=== PATIENT | male | born 1965 | race Caucasian/White ===

== ENCOUNTER 2023-09-12 20:39 | Inpatient (IN) | payer OTHER, SELFPAY ==
[2023-09-12 17:53] VITALS: BMI 23.2
[2023-09-12 17:54] VITALS: BP 134/110
[2023-09-12 18:18] LABS: % Basophils 0.2 % (0-2); % Eosinophils 0.4 % (0-6); % Immature Granulocytes 0.4 % (0-0.5); % Lymphocytes 9.1 % (20.5-51.1); % Monocytes 4.6 % (1.7-9.3); % Neutrophils 85.3 % (42.2-75.2); Absolute Eosinophils 0.1 10^3/uL (0-0.7); Absolute Immature Granulocytes 0.1 10^3/uL (0-0.05); Absolute Lymphocytes 1.4 10^3/uL (1.2-3.4); Absolute Monocytes 0.7 10^3/uL (0.1-0.6); Absolute Neutrophils 12.7 10^3/uL (1.4-6.5); Hematocrit 49.8 % (39.0-52.0); Mean Corp Hgb Conc. 34.1 g/dL (33.0-37.0); Mean Corpuscular Volume 87.8 fL (80.0-94.0); Mean Platelet Volume 10.2 fL (7.4-10.4); Nucleated Red Blood Cells % 0 % (-); Platelet Count 191 10^3/uL (130-400); Red Blood Cell Count 5.67 10^6/uL (4.70-6.10); Red Cell Dist. Width 13.6 % (11.5-14.5); White Blood Cell Count 14.9 10^3/uL (4.8-10.8)
[2023-09-12 18:27] LABS: ALT (SGPT) 14 U/L (0-50); AST (SGOT) 23 U/L (17-59); Albumin 4.3 g/dl (3.5-5.0); Alkaline Phosphatase 148 U/L (38-126); Blood Urea Nitrogen 10 mg/dl (9-20); Calcium 10.3 mg/dl (8.4-10.2); Carbon Dioxide 25 mmol/L (22-30); Chloride 98 mmol/L (98-107); Glucose 172 mg/dl (70-99); Potassium 4.7 mmol/L (3.5-5.1); Sodium 135 mmol/L (135-145); Total Bilirubin 0.8 mg/dl (0.2-1.3); Total Protein 6.9 g/dl (6.3-8.2); eGFR > 60.00
[2023-09-12 18:32] LABS: COVID-19 Antigen Negative (Negative)
[2023-09-12 18:33] LABS: Lactic Acid 4.2 mmol/L (0.7-2.0)
[2023-09-12] MEDS: ZOFRAN 4 MG IV (18:58)
[2023-09-12] MEDS: DILAUDID 0.5 MG IV (18:58)
[2023-09-12] MEDS: NSS 1000 IV (19:05)
[2023-09-12 19:06] VITALS: BP 153/78
[2023-09-12] MEDS: DILAUDID 1 MG IV (19:38)
--- NOTE | 2023-09-12 19:48 | ED.GENMED ---
History of Present Illness
General
Chief Complaint: Abdominal Symptoms
Source: patient
Time Seen by Provider: 09/12/23 18:54
Travel History
Have you had any contact with someone who has COVID-19?: No
Do you have any symptoms of coronavirus? Fever > 100 degrees, chills, cough, shortness of breath, sore throat, loss of taste or smell, muscle aches, or headache?: No
History of Present Illness
History of Present Illness:
58-year-old male presents to the emergency room complaining of severe abdominal pain. Patient was feeling a bit unwell earlier today. This afternoon he began having severe pain in the middle of his abdomen. Positive chills. Pain has been
increasing in severity. No vomiting. 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 Patient was initially on Plavix and Xarelto. At some point. The patient transition to just aspirin due to easy
bruising and bleeding. Patient does continue to smoke cigarellos. Patient is also not taking cholesterol medications.
Past History
Past History
ED Past Medical History: LA
ED Past Surgical History: Cardiac (Catheterization)
Social History
Tobacco: Smoker
Alcohol: None
Personal:
Employment: Employed
Phy Exam
Physical Exam
Physical Exam:
General: Awake, Alert, Oriented X3. Patient appears in significant discomfort
Vitals: unremarkable
Head: Atraumatic
Eyes: Pupils equal, EOMI
Throat: Airway intact, no exudates
Neck: Trachea midline
Lungs: Clear and equal b/l
Heart: Regular rate, no murmurs
Abd: Soft, no reproducible abdominal tenderness r, No pulsatile mass
Neuro: Nonfocal
Skin: Warm, dry, no rash
Extremities: pulses equal b/l, no edema
Course
Orders/Labs/Results
Orders:
Orders
09/12/23 18:05
COVID-19 Antigen Urgent
Source: Nasal Swab
Complete Blood Count/With Diff Urgent
Comprehensive Metabolic Panel Urgent
Lactic Acid Urgent
Blood Culture Urgent
LEODAN Source: Blood/Venous
Specimen Description:
Influenza A+B Rapid Molecular Urgent
LEODAN Source: Nasal Swab
Specimen Description:
09/12/23 18:55
HYDROmorphone [Dilaudid] 0.5 mg .ROUTE .STK-MED ONE
Ondansetron Injectable [Zofran] 4 mg .ROUTE .STK-MED ONE
09/12/23 18:58
HYDROmorphone [Dilaudid] 0.5 mg IV NOW STA
Ondansetron Injectable [Zofran] 4 mg IV NOW STA
09/12/23 19:00
CT Angio Abd/Pelvis w/wo IV [CT Abd/pelvis Angio W/wo Iv] Stat
Comment:
Reason For Exam: severe abdominal pain hx of mesenteric bypass
09/12/23 19:05
0.9% Sodium Chloride 1000 ml [Nss] 1,000 ml IV BOLUS
09/12/23 19:32
HYDROmorphone [Dilaudid] 1 mg IV NOW STA
Abnormal Lab Results
09/12/23
18:05
WBC 14.9 H 10^3/uL
(4.8-10.8)
Abs Immat Gran (auto) 0.1 H 10^3/uL
(0-0.05)
Absolute Neuts (auto) 12.7 H 10^3/uL
(1.4-6.5)
Absolute Monos (auto) 0.7 H 10^3/uL
(0.1-0.6)
Neutrophils % 85.3 H %
(42.2-75.2)
Lymphocytes % 9.1 L %
(20.5-51.1)
Glucose 172 H mg/dl
(70-99)
Lactic Acid 4.2 H* mmol/L
(0.7-2.0)
Calcium 10.3 H mg/dl
(8.4-10.2)
Alkaline Phosphatase 148 H U/L
(38-126)
09/12/23 18:05
09/12/23 18:05
Vital Signs
Initial and Last Documented VS:
Initial Vital Signs
Temp Pulse Resp BP Pulse Ox
99.9 F 54 20 134/110 98
09/12/23 17:54 09/12/23 17:54 09/12/23 17:54 09/12/23 17:54 09/12/23 17:54
Last Documented Vital Signs
Temp Pulse Resp BP Pulse Ox
99.9 F 54 20 134/110 98
09/12/23 17:54 09/12/23 17:54 09/12/23 17:54 09/12/23 17:54 09/12/23 17:54
MDM/Problems Addressed
Differential Diagnosis Includes:
Gastritis, peptic ulcer disease, diverticulitis, mesenteric ischemia
MDM/Problems Addressed:
Given patient's history of celiac artery and SMA artery bypass my #1 concern is occlusion of the bypass graft with resultant bowel ischemia. Therefore CTA of the abdomen was performed. After examining the patient I also immediately called
Vanna who is on-call for vascular surgery. I also discussed the case with Dr. Gan who is the backup vascular surgeon. As soon as the CTA images were available Dr. Gan reviewed them. She notes that there appears to be occlusion of the
graft and she has called in the OR team for emergent surgery. She notes that this is a very high risk occlusion which may not be repairable. There is a high chance of mortality.
*Radiology
Radiology exam reviewed: radiology read reviewed
*Pulse Oximetry
Patient hypoxic: no
*Critical Care Note
Total Time (30-74mins, 75-104mins- exclusive of procedures): 45 min
comment:
Critical care statement: A total of 45 minutes of critical care time was provided for this patient. This includes management of unstable vital signs, evaluation of the patient at bedside, reviewing the patient's pertinent medical records, discussion
with consultants, review of old EKGs and review of pertinent medical records. This time with separate from time utilized to perform the aforementioned documented procedures
Data Reviewed
Review of Other/Old Records Reveals: Operative Reports (Previous vascular surgery report) and Discharge Summary (Discharge summary from vascular surgery admission)
Patient Management
Discussion with other providers: Hospitalist and Crisis Clinician (Dr. Parbhakar, Dr. Gan)
ED Attending Note
-
Portions of this chart may have been created with voice recognition software.� Occasional wrong word or��sound alike� substitutions may have occurred due to the inherent limitations of voice recognition software.
Discharge Plan
Departure
Patient Disposition: Admit
Date of Disposition: 09/12/23
Time of Disposition: 20:03
Presentation/result/management discussed w/ accepting MD/DO: Vascular surgery, Dr. Fox
Condition: Critical
Discharge Problem:
Acute mesenteric ischemia, Occlusion of vascular bypass graft
Prescriptions:
No Action
ibuprofen 200 mg Capsule
800 mg PO TID PRN (Reason: mild pain/fever)
aspirin 81 mg Tablet,Delayed Release (/Ec)
81 mg PO DAILY
methylprednisolone 4 mg tablets,dose pack
4 mg PO UD
melatonin 5 MG tablet
20 mg PO HS
Referrals:
Mendoza Uribe DO [Family Provider] -
Interventions
Interventions:
*Risk Screen - Suicide Last Done: 09/12/23 17:54
*General Assessment Last Done: 09/12/23 17:54
[2023-09-12 20:00] VITALS: BP 191/103
[2023-09-12] MEDS: ROCEPHIN 1000 MG IV (20:04)
[2023-09-12 20:10] VITALS: BP 166/91
[2023-09-12 20:11] LABS: APTT 23.2 Sec (23.4-35.0); INR 1.17; PT 14.8 Sec (11.4-14.6)
--- NOTE | 2023-09-12 20:18 | HPS.HSE ---
Addendum entered and electronically signed by Speedy Jackman MD 09/12/23 20:38:
I saw and examined the patient.
The STATION CAPTAIN or PA's note was reviewed and I agree with the note.
Comment:
HPI
58M current smoker HX GA, ASCVD, S/p bypass of his celiac and SMA in May 2021 on Plavix and Xarelto pw acute onset of worsening mid abdominal pain. Reports Plavix and statin were topped by patient and initiated ASA on his own since
January and recurrenct smoker.
Reviewed VS: T 99.9 HR 55- 65s BP 130/110- 165/90
PE
Gen: Not toxic
HEENT: anicteric
Neck: supple
Lungs: CTA
Cor: S1 S2
Abdomen: soft abdomen, minimally tender in mid abdomen s/p 1 gm of Dilaudid at ER
ASBESTOS SHINGLE ROOFER: AAO3, NFND
MS: n edema
Psych: appropriate
Data
WCC 14.9
INR 1.17
Nl Cr
BG 172
LA 4.2
NEG Covid
CT Abd/pelvis Angio W/wo Iv
1. Complete occlusion of the celiac/SMA bypass graft as described.
2. Mild bilateral lower lobe infectious/inflammatory bronchiolitis change.
3. Mild T12 and L4 superior endplate compression deformities, new from 01/20/2023 and age indeterminate. Recommend correlation for any point tenderness in these regions.
ASSESSMENT & PLAN
Acute complete occlusion of the celiac/SMA bypass graft
Associated abdominal pain
Lactate acidosis
Non compliance with Plavix and Stain
Current smoker
- Heparin gtt
- Urgent Vascular consult by ER
- Urgently proceed to Vascular OR
- Empiric IV Zosyn incase bacteria translocation due to BW ischemia
- IV Dilaudid PRN
- Anti Emetics
- NPO and IVF
HLD- non compliance with Statin
- resume Stain when able to take POs
DVT Px: on Heparin gtt
Code: Full code
ICU
Original Note:
Family Physician
-
Family Physician: Mendoza Uribe
Chief Complaint
-
Abdominal Pain
History of Present Illness
Patient is a 58 y/o male with PMH of mesenteric ischemia s/p celiac/SMA bypass who presented to the ED complaining of severe abdominal pain. Patient says he felt anxious and nauseous this morning and reports elevated BP at work. Around 1 pm he
started to have progressive abdominal pain which he says was 10/10. Patient had a supraceliac aorta to hepatic artery/SMA bypass with graft on 06/25/21. Patient says he quit smoking for 6-7 months following the surgery but has since resumed smoking
cigarillos daily. Work-up in the ED revealed complete occlusion of the bypass graft. Hospitalist group was asked to evaluate the patient for admission to the hospital.
Medical History
Past Medical History
Past Medical History: Reports Other
Additional Past Medical History:
Mesenteric Ischemia
Coronary Vasospasm
LLE DVT
Past Surgical History: Reports Other
Additional Past Surgical History:
Supraceliac aorta to hepatic artery/superior mesenteric artery bypass�
Left Knee Arthroscopy
Lumbar Discectomy
Hemorrhoidectomy
Social History
Tobacco: Smoker (10 cigarillos per day )
Alcohol: None
Family History
Family History: Not pertinent
Allergies / Home Medications
Allergies reflects when Allergies were last updated in [facility].
Home Medications with original date entered in [facility]
Allergy/Medication List:
Allergies
Allergy/AdvReac Type Severity Reaction Status Date / Time
No Known Allergies Allergy Verified 09/12/23 17:54
Home Medications
aspirin 81 mg tablet,delayed release 81 mg PO DAILY 09/12/23
ibuprofen 200 mg capsule 800 mg PO TID PRN mild pain/fever 09/12/23
melatonin 5 mg tablet 20 mg PO HS 09/12/23
methylprednisolone 4 mg tablets in a dose pack 4 mg PO UD 09/12/23
Review of Systems
-
A 12 point ROS was completed and negative except as noted: Yes
Constitutional: Denies Fever or Chills
Respiratory: Denies Cough or Trouble Breathing
Cardiac: Denies Chest Pain or Palpitations
Abdomen/GI: Reports See HPI
Physical Exam
Vital Signs
Vital Signs
Temp Pulse Resp BP Pulse Ox
99.9 F 68 20 166/91 96
09/12/23 17:54 09/12/23 20:10 09/12/23 17:54 09/12/23 20:10 09/12/23 20:10
Physical Exam
General: Well Developed and Well Nourished
HEENT: Moist mucous membranes
Respiratory: Other (Coarse breath sounds throughout)
Cardiac: S1/S2 and Regular Rhythm
GI: Soft and Tender (Mild throughout without rebound or guarding)
Rectal: Deferred by Provider
Musculoskeletal: No Clubbing, No Cyanosis and No Edema
Skin: Warm and Dry
Neuro: Awake, Alert, Oriented and No Motor Deficits
Laboratory Results
-
09/12/23 18:05
09/12/23 18:05
Laboratory Results
PT 14.8 Sec (11.4-14.6) H 09/12/23 19:54
INR 1.17 09/12/23 19:54
APTT 23.2 Sec (23.4-35.0) L 09/12/23 19:54
Lactic Acid 4.2 mmol/L (0.7-2.0) H* 09/12/23 18:05
Total Bilirubin 0.8 mg/dl (0.2-1.3) 09/12/23 18:05
AST 23 U/L (17-59) 09/12/23 18:05
ALT 14 U/L (0-50) 09/12/23 18:05
Alkaline Phosphatase 148 U/L (38-126) H 09/12/23 18:05
Data Reviewed
-
CT Scan: Report Reviewed by me
Lab Data: Labs Reviewed by me
Old Records: Reviewed
Impression/Plan
-
Acute Mesenteric Ischemia secondary to Occluded Celiac/SMA Bypass Graft
-Patient to go to OR this evening, then ICU post-op
-Continue heparin drip
-Trend Lactic Acid
-Start empiric Zosyn
-Check HgbA1c and Lipid Panel
Tobacco Use Disorder
-Encourage smoking cessation
DVT proph: Heparin Drip
Code Status: Full Code
[2023-09-13] VITALS (43 sets, daily range): BP systolic 110–161; BP diastolic 79–110; BMI 21.8
--- NOTE | 2023-09-13 00:25 | W.IMMPOSTOP ---
Surgical Immed Post Op Note
-
Primary Surgeon: kendall
Assisting Surgeon: xochilt
Pre-op Diagnosis: ischemic bowel
Post-op Diagnosis: same
Procedure Performed: sma thrombectomy, arteriogram, patch angioplasty
Anesthesia Type: get
Specimen / Cultures: thrombus
Estimated Blood Loss: 500
Complications: none
Operative Findings: palpable sma pulse
--- NOTE | 2023-09-13 00:31 | W.IMMPOSTOP ---
Surgical Immed Post Op Note
-
Primary Surgeon: Phu Prabhakar MD
Assisting Surgeon: Linda Gan MD
Pre-op Diagnosis: Acute mesenteric ischemia secondary to mesenteric bypass thrombosis
Post-op Diagnosis: same
Procedure Performed: Exploratory laparotomy, lysis of adhesions, aortomesenteric bypass nick thrombectomy, mesenteric arteriogram, patch angioplasty of aortomesenteric bypass
Anesthesia Type: GETA
Estimated Blood Loss: 1L
Complications: none
Operative Findings: viable bowel. thrombosed bypass to SMA
[2023-09-13] MEDS: NSS 1000 IV ×2 (01:23→08:30)
[2023-09-13] MEDS: HEPARIN 25000 UNITS/250 ML IV (01:49)
[2023-09-13] MEDS: ZOSYN 50 IV ×4 (02:08→18:42)
--- NOTE | 2023-09-13 02:30 | PTCARENOTE ---
Received pt. from PACU s/p SMA thrombectomy, arteriogram, and angioplasty of graft. Heparin gtt infusing. Pt. drowsy but arousable. Oriented. Can move extremities. C/o pain at surgical site. PRN pain medication given, see MAR. Heart rhythm is sinus.
BP normotensive. Currently on 4L nasal cannula. Lungs sound diminished. Pt. is NPO. NG tube to continuous suction per order. Chavez catheter in place, draining without issue. Skin as documented. Discussed plan of care with patient. Vital signs stable
at this time.
[2023-09-13 02:51] LABS: Lactic Acid 4.6 mmol/L (0.7-2.0)
[2023-09-13] MEDS: DILAUDID 1 MG IV (02:55)
[2023-09-13 03:40] LABS: Lactic Acid 3.9 mmol/L (0.7-2.0)
[2023-09-13 03:45] LABS: Hematocrit 50.6 % (39.0-52.0); Hemoglobin 17.3 g/dL (13.0-18.0); Mean Corp Hgb Conc. 34.2 g/dL (33.0-37.0); Mean Corpuscular Hgb 30.5 pg (27.0-31.0); Mean Corpuscular Volume 89.1 fL (80.0-94.0); Mean Platelet Volume 10.4 fL (7.4-10.4); Platelet Count 140 10^3/uL (130-400); Red Blood Cell Count 5.68 10^6/uL (4.70-6.10); Red Cell Dist. Width 13.8 % (11.5-14.5)
[2023-09-13 03:49] LABS: INR 1.49; PT 17.8 Sec (11.4-14.6)
[2023-09-13 03:58] LABS: APTT 180.3 Sec (23.4-35.0)
[2023-09-13 04:14] LABS: ALT (SGPT) 33 U/L (0-50); AST (SGOT) 72 U/L (17-59); Albumin 3.1 g/dl (3.5-5.0); Alkaline Phosphatase 109 U/L (38-126); Blood Urea Nitrogen 9 mg/dl (9-20); Calcium 7.5 mg/dl (8.4-10.2); Carbon Dioxide 16 mmol/L (22-30); Chloride 109 mmol/L (98-107); Direct Bilirubin 0.4 mg/dl (0.0-0.4); Estimated Creatinine Clearance 99 ml/min; Glucose 231 mg/dl (70-99); HDL Cholesterol 43 mg/dl; LDL Cholesterol, Calculated 96 mg/dl; Magnesium 1.8 mg/dl (1.6-2.3); Phosphorus 5.4 mg/dl (2.5-4.5); Potassium 4.7 mmol/L (3.5-5.1); Sodium 132 mmol/L (135-145); Total Bilirubin 1.8 mg/dl (0.2-1.3); Total Cholesterol 152 mg/dl (50-199); Total Protein 5.4 g/dl (6.3-8.2); Triglyceride 67 mg/dl (10-149); Very Low Density Lipoprotein 13 mg/dl (0-30); eGFR > 60.00
[2023-09-13] MEDS: MORPHINE SULFATE 2 MG IV ×2 (04:40→07:21)
[2023-09-13] MEDS: FLUSH (NSS) 1 FLUSH IV ×2 (07:22→18:43)
--- NOTE | 2023-09-13 08:12 | W.PN.VS ---
Addendum entered and electronically signed by Phu Prabhakar MD 09/13/23 08:40:
patient with moderate abdominal pain this am
labs reviewed
dressing intact
lactate pending
increase fluids
follow labs and exam
if labs worsen, will need to scan as unclear what would be source
follow exam closely
continue hep gtt
change to INTERIOR DESIGN PROFESSIONAL for pain
Original Note:
Today's Communication / Plan
-
Seen and assessed with Dr Prabhakar
Assessment/Plan
-
POD 0.5 Exploratory laparotomy, lysis of adhesions, aortomesenteric bypass nick thrombectomy, mesenteric arteriogram, patch angioplasty of aortomesenteric bypass
Plan:
-KEEP heparin at 500/hr
-Cont Zosyn
-Replete Ca
-INTERIOR DESIGN PROFESSIONAL
-NS bolus 1000, monitor UO
-Repeat labs this am
Subjective Data
-
Date of Service: September 13, 2023
Pt seen at bedside this am with Dr Prabhakar. Pt admits to abd pain. Surgical site stable, dry.
Objective Data
-
Vital Signs
Temp Pulse Resp BP Pulse Ox
98.1 F 112 18 130/96 98
09/13/23 07:59 09/13/23 07:00 09/13/23 07:00 09/13/23 07:00 09/13/23 07:00
Intake and Output
09/12/23 09/13/23 09/14/23
06:59 06:59 06:59
Intake Total 1175 / 1175
Output Total 905 / 905
Balance 270 / 270
Intake:
IV fluids (Total) 1175 / 1175
Heparin 25 / 25
Normosol 100 / 100
Nss 1,000 ml @ 150 mls/hr IV . 750 / 750
Q6H40M KATERINE Rx#:[id number]
nss 300 / 300
Amount instilled into GI Tube ( 0 / 0
Total)
Blanco Sump 0 / 0
Output:
Gastrointestinal tube output ( 0 / 0
Total)
Blanco Sump 0 / 0
Urine, Chavez 905 / 905
Lab Results
09/13/23 03:17
09/13/23 03:17
Calcium 7.5 mg/dl (8.4-10.2) L D 09/13/23 03:17
Phosphorus 5.4 mg/dl (2.5-4.5) H 09/13/23 03:17
Magnesium 1.8 mg/dl (1.6-2.3) 09/13/23 03:17
Total Bilirubin 1.8 mg/dl (0.2-1.3) H D 09/13/23 03:17
Direct Bilirubin 0.4 mg/dl (0.0-0.4) 09/13/23 03:17
AST 72 U/L (17-59) H 09/13/23 03:17
ALT 33 U/L (0-50) 09/13/23 03:17
Alkaline Phosphatase 109 U/L (38-126) 09/13/23 03:17
Total Protein 5.4 g/dl (6.3-8.2) L D 09/13/23 03:17
Albumin 3.1 g/dl (3.5-5.0) L 09/13/23 03:17
Physical Exam
-
AAOx3
No tachypnea on 2L nc
Tachycadic in the 110's
Abd soft, tender, incisional site with aquacel dressing clean
NGT with 0 output
UO 30cc/hr
BL feet warm/pink
--- NOTE | 2023-09-13 08:30 | PTCARENOTE ---
NSS 1l bolus given per vasc surgery.
--- NOTE | 2023-09-13 08:37 | CON.VAS ---
Consultation
Consultation Request
Performing Provider: Vanna
Reason for Consultation: Abd pain
Medical History
-
Chief Complaint: Abdominal pain
History of Present Illness:
4- yo male with PMH of mesenteric ischemia s/p celiac/SMA bypass who presented to the ED complaining of severe abdominal pain. Patient says he felt anxious and nauseous this morning and reports elevated BP at work. Around 1 pm he started to have
progressive abdominal pain which he says was 10/10. Patient had a supraceliac aorta to hepatic artery/SMA bypass with graft on 06/25/21. Patient says he quit smoking for 6-7 months following the surgery but has since resumed smoking daily. Work-up
in the ED revealed complete occlusion of the bypass graft.
Vascular consult for this issue. Pt seen in the ER by Dr Prabhakar.
Past Medical History
Past Medical History: Other (Mesenteric Ischemia, Coronary Vasospasm, LLE DVT)
Past Surgical History: Other (Supraceliac aorta to hepatic artery/superior mesenteric artery bypass�, Left Knee Arthroscopy, Lumbar Discectomy, Hemorrhoidectomy)
Social History
Tobacco: Smoker
Alcohol: None
Family History
Family History: Reviewed & Not Pertinent
Allergies / Home Medications
Allergy/AdvReac Type Severity Reaction Status Date / Time
No Known Allergies Allergy Verified 09/12/23 17:54
Medication Instructions Recorded Confirmed Type
aspirin 81 mg tablet,delayed 81 mg PO DAILY Blood Clot 09/12/23 09/12/23 History
release Prevention/Tx
ibuprofen 200 mg capsule 800 mg PO TID PRN mild pain/fever 09/12/23 09/12/23 History
melatonin 5 mg tablet 20 mg PO HS Sleep 09/12/23 09/12/23 History
methylprednisolone 4 mg tablets in 4 mg PO UD Anti-Inflammatory 09/12/23 09/12/23 History
a dose pack
Review of Systems
-
History Source: Patient
All other systems: Negative unless noted
Constitutional: Reports No Symptoms
EENT: Reports No Symptoms
Respiratory: Reports No Symptoms
Cardiac: Reports No Symptoms
Vascular: Denies Leg Pain / Claudication
Abdomen/GI: Reports Abdominal Pain, Nausea and Pain
: Reports No Symptoms
Musculoskeletal: Reports No Symptoms
Skin: Reports No Symptoms
Neurological: Reports No Symptoms
Endocrine: Reports No Symptoms
Physical Exam
Vital Signs
Temp Pulse Resp BP Pulse Ox
98.1 F 112 18 130/96 98
09/13/23 07:59 09/13/23 07:00 09/13/23 07:00 09/13/23 07:00 09/13/23 07:00
Lab Results
09/13/23 03:17
09/13/23 03:17
Physical Exam
General: Pain
HEENT: Normocephalic and Atraumatic
Respiratory: Non Labored Respirations
Cardiac: Negative JVD
GI: Tender
Musculoskeletal: No Clubbing, No Cyanosis and No Edema
Skin: Warm
Neuro: Awake, Alert and Oriented
Psych: Calm
Assessment / Plan
-
Emergently to OR for CTA evidence of complete occlusion of the celiac/SMA bypass graft
--- NOTE | 2023-09-13 09:00 | PTCARENOTE ---
Rec'd pt at 0715 awake resting in bed c/o abd incisional pain. Medicated at 0725 with Morphine 2 mg IV for 9/10 abd pain. Rec'd pt alert and oriented. States other than abd pain his biggest concern is that he has to move his bowels. Has put himself
on and off the bedpan several times. Speech is clear. SKin is pale pink wm and dry. Respirs are unlabored on 2l nc with sats of 96%. BS are decreased at the bases. Monitor ST in the 115 range. + pulses. DP pulse are weak to palp but easily audible
with the doppler. PT pulses with the doppler. No edema. VS as documented. Abd is tender to palp with hypoactive BS. Pacheco NG in R nare to cont suction at 80 mm/hg- small amt of brownish drainage in the tubing. Midline abd incision with aquacell
dressing that is intact- few spots of drainage. No stool. Thermistor garcía intact for jovani urine. IV NSS infusing at 150 ml/hr via LAC IV Site. IV Heparin changed over to R wrist/forearm IV site. Both wnl. Vascular surgery in to see pt and updated.
Pt repositioned. Plan of care reviewed with pt. Call paco in reach.
[2023-09-13] MEDS: DILAUDID PCA 30 IV (09:16)
--- NOTE | 2023-09-13 09:30 | PTCARENOTE ---
NSS bolus completed and IV fluids changed to LR at 150 ml/hr. AUTOMATED ACCESS SYSTEMS TECHNICIAN Dilaudid hung via LAC IV Site along with LR. Dilaudid 0.2 mg dose, 10 min lockout, max 1.2 mg hr. Pt instructed on how to use the AUTOMATED ACCESS SYSTEMS TECHNICIAN and is using the controller correctly. No other
change.
[2023-09-13 09:31] LABS: Glycohemoglobin (HgbA1c) 5.8 % (4.0-5.6)
--- NOTE | 2023-09-13 09:39 | CON.INTV ---
Consultation
Consultation Request
Date/Time Consultation Requested: 09/13/2023
Date/Time Consultation Performed: 09/13/2023
Requesting Provider: Dr. Prabhakar
Performing Provider: Dr. Les Plata
Reason for Consultation: Bowel ischemia-postoperative ICU care
Medical History
-
History of Present Illness:
58-year-old man with past medical history for peripheral vascular disease, smoker, COPD, prior coronary artery disease prior history of mesenteric bypass in 2020, came complaining of subacute abdominal pain. Patient stopped Plavix and a statin on
his own only was taken aspirin since January 2023. Still smoking.
CT abdomen pelvis demonstrated bowel ischemia with thrombosis of mesenteric bypass. Patient was taking emergently to the operating room by vascular surgery. Underwent exploratory laparotomy and underwent lysis of additions, thrombectomy of
aortomesenteric bypass with patch angioplasty.
Patient currently extubated today ICU.
Complaining of lower abdominal pain. Denies any nausea or vomiting.
Hypertensive. Slightly tachycardic.
On low rate supplemental oxygen. Denies any cough or phlegm production.
Past Medical History
Past Medical History: Other (See assessment and plan section)
Social History
Tobacco: Smoker
Alcohol: None
Personal:
Living: With Family
Family History
Family History: Reviewed & Not Pertinent
Allergies / Home Medications
Allergies
Allergy/AdvReac Type Severity Reaction Status Date / Time
No Known Allergies Allergy Verified 09/12/23 17:54
Home Medications
Medication Instructions Recorded Confirmed Last Taken Type
aspirin 81 mg tablet,delayed 81 mg PO DAILY Blood Clot 09/12/23 09/12/23 Unknown History
release Prevention/Tx
ibuprofen 200 mg capsule 800 mg PO TID PRN mild pain/fever 09/12/23 09/12/23 Unknown History
melatonin 5 mg tablet 20 mg PO HS Sleep 09/12/23 09/12/23 Unknown History
methylprednisolone 4 mg tablets in 4 mg PO UD Anti-Inflammatory 03/09/12/23 09/11/23 History
a dose pack 24 mg
Review of Systems
-
History Source: Patient
All other systems: Negative unless noted
Vitals / Labs / Diagnostic Testing
Vital Signs
Temp Pulse Resp BP Pulse Ox
98.1 F 112 18 130/96 98
09/13/23 07:59 09/13/23 07:00 09/13/23 07:00 09/13/23 07:00 09/13/23 07:00
Laboratory Results
09/12/23 09/13/23
19:54 03:17
PT 14.8 H 17.8 H
INR 1.17 1.49
APTT 23.2 L 180.3 H*
Microbiology
09/12/23 18:05 Nasal Swab Influenza Types A & B (ALAN) - Final
Negative for Influenza A & B, NAAT
Negative results must be combined with clinical observations
and patient history.
Nucleic Acid Amplification test (NAAT)performed on the
[employer] platform.
Diagnostic Testing:
Physical Exam
-
HEENT: Normocephalic
Cardiovascular: S1/S2
Respiratory: Clear and Non-Labored Respirations
GI: Soft, Distended, Tender, Other (Decreased bowel sounds) and Other (Surgical incision is intact.)
Neurology: Awake, Alert, Oriented and AO x 3
Skin: Warm
General: Respiratory Distress (n) and Pain (Appears uncomfortable due to abdominal discomfort)
Assessment
-
58-year-old man with past medical history noted, admitted to the emergency room with abdominal pain. Found to have bowel ischemia due to occlusion of prior aortic mesenteric bypass. Apparently patient stopped taking Plavix and statin since January
2022. Only on aspirin, emergently taken to the operating room. Transferred to the critical care unit, we were consulted for critical care management.
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
Status post:Exploratory laparotomy, lysis of adhesions, aortomesenteric bypass nick thrombectomy, mesenteric arteriogram, patch angioplasty of aortomesenteric bypass
Leukocytosis due to mesenteric ischemia
Hyperglycemia
Lactic acidosis
Conditions present prior admission:
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
graft bypass into the celiac and SMA vessels.
Tobacco abuse
PFT's 06-19-21 with moderate airflow obstruction with some reversibility postbronchodilator on spirometry.-Not on bronchodilators
Moderate COPD/emphysema-not seen by pulmonary in the outpatient office for
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
History of left gastric anemic DVT status post apixaban 03/2021 post left knee surgery
History lumbar vasectomy
Chronic back pain-recent steroid taper
Assessment and plan:
Postoperative day 0
Extubated, on minimal supplemental oxygen
Not requiring vasopressors
Still complaining of some abdominal discomfort.
Denies nausea or vomiting
Continue IV fluids for maintenance
A bolus of 500 mL saline is given now, urine appears dark but patient does have adequate urinary output.
Follow renal function and urinary output closely
-
Continues to report some abdominal discomfort.
Lactate levels trending lower
Serial abdominal exams
Low threshold to repeat CT scan of the chest if laboratory, lactate levels worsen.
-
Operative report reviewed
Vascular surgery notes reviewed
Continue heparin drip, follow PTT
Monitor for bleeding
-
Pain control with narcotics, to start Dilaudid CONCRETE SWIMMING POOL INSTALLER.
Monitor respiratory status closely in the setting of underlying moderate COPD.
Not bronchospastic on exam
Patient does not take any inhalers in the outpatient setting.
-
Antibiotics per vascular surgery-Zosyn
Monitor leukocytosis
-
Postoperative anemia, follow H&H.
Will transfuse as necessary
-
Hyperglycemia, insulin sliding scale
Currently patient is n.p.o.
May need insulin drip if hypoglycemia persists with blood sugars over 200.
-
Smoking cessation encouraged.
-
Maintain ICU monitoring.
[2023-09-13] MEDS: LACTATED RINGERS 1000 IV (10:04)
[2023-09-13] MEDS: CALCIUM GLUCONATE 100 IV (10:05)
[2023-09-13 10:06] LABS: Hematocrit 47.6 % (39.0-52.0); Hemoglobin 16.3 g/dL (13.0-18.0); Mean Corp Hgb Conc. 34.2 g/dL (33.0-37.0); Mean Corpuscular Hgb 30.5 pg (27.0-31.0); Mean Corpuscular Volume 89.1 fL (80.0-94.0); Mean Platelet Volume 10.7 fL (7.4-10.4); Platelet Count 126 10^3/uL (130-400); Red Blood Cell Count 5.34 10^6/uL (4.70-6.10); White Blood Cell Count 25.1 10^3/uL (4.8-10.8)
--- NOTE | 2023-09-13 10:10 | PTCARENOTE ---
2gm Ca++ gluconate abbi hung per md order. Pt has been a difficult stick and IV team in- aretha labs and inserted a #22 protective in the L hand. Ca++ infusing via L hand site currently
[2023-09-13 10:18] LABS: APTT 53.5 Sec (23.4-35.0)
[2023-09-13 10:19] LABS: Lactic Acid 4.8 mmol/L (0.7-2.0)
[2023-09-13 10:24] LABS: Blood Urea Nitrogen 13 mg/dl (9-20); Calcium 7.2 mg/dl (8.4-10.2); Carbon Dioxide 18 mmol/L (22-30); Chloride 110 mmol/L (98-107); Estimated Creatinine Clearance 88 ml/min; Glucose 198 mg/dl (70-99); Potassium 4.3 mmol/L (3.5-5.1); Sodium 136 mmol/L (135-145); eGFR > 60.00
--- NOTE | 2023-09-13 10:38 | PTCARENOTE ---
Pt resting. Using SCHOOL RESOURCE OFFICER as needed. Still intermittently feels like he has to move his bowels. Dr. Prabhakar updated on labs.
--- NOTE | 2023-09-13 11:45 | PTCARENOTE ---
Dr. Prabhakar updated on labs from earlier. Overall assessment is unchanged. O2 reapplied around 1050 as with sleeping his sats were dipping to 90-91%. ETCO applied earlier per DAIRY HUSBANDMAN protocol. Sats currently on 2l are 96%. VS as documented. Urine
outputs as noted. Pt was able to move his bowels on the bedpan a mod amt of choe with sl rust tinge. Repositioned. Ramya care given.
[2023-09-13 12:22] LABS: Glucose - Point of Care 136 mg/dl (70-99)
--- NOTE | 2023-09-13 13:25 | W.PN.HOSP.TC ---
Today's Communication/Plan
-
see outlined plan
Assessment / Plan
Assessment / Plan
Assessment:
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
- s/p Exploratory laparotomy, lysis of adhesions, aorto-mesenteric bypass Tona thrombectomy, mesenteric arteriogram, patch angioplasty of aorto-mesenteric bypass
- lactic acidosis continues; continues IVF
- Vascular following
- continue IV Heparin - requires intensive monitoring
- dilaudid ADVERTISING ACCOUNT REPRESENTATIVE for pain control
- if exam worsens, repeat CT on urgent basis
Leukocytosis due to mesenteric ischemia
- continue Zosyn, day 2
- follow cultures
Hyperglycemia
- SSI while NPO
Tobacco abuse- remains actively smoking
Moderate COPD/emphysema
CAD s/p prior hx of NSTEMI
Hx of DVT status post apixaban 03/2021 post left knee surgery
Chronic back pain-recent steroid taper
Hyponatremia
Hypocalcemia - replete
DVT ppx: IV Heparin
Code: Full
Total Critical Care Time 39 minutes. I was immediately available to the patient and staff. I personally examined, reviewed labs, diagnostic images/reports, interpretations, treatment plans, discussed patient care with other providers and family
or caregivers (if patient is unable to make decisions), entered orders as appropriate and documented the medical record.
Anticipated Discharge: > 48 hours
Subjective/Interval History
-
Date of Service: September 13, 2023
reports some abd pain
lactate levels fluctuating but now on higher IVF
Objective Data
-
Labs:
Laboratory Results
09/13/23 09/13/23 09/13/23
03:17 09:54 12:00
WBC 27.0 H 25.1 H
Hgb 17.3 16.3
Hct 50.6 47.6
Plt Count 140 D 126 L
PT 17.8 H
INR 1.49
APTT 180.3 H* 53.5 H Cancelled
Sodium 132 L 136
Potassium 4.7 4.3
Chloride 109 H 110 H
Carbon Dioxide 16 L 18 L
BUN 9 13
Creatinine 0.8 0.9
Glucose 231 H 198 H
Calcium 7.5 L D 7.2 L
Total Bilirubin 1.8 H D
AST 72 H
ALT 33
Alkaline Phosphatase 109
09/13/23 09/13/23 09/13/23
14:00 14:40 18:00
WBC Pending
Hgb Pending
Hct Pending
Plt Count Pending
PT
INR
APTT Cancelled
Sodium Pending Cancelled
Potassium Pending Cancelled
Chloride Pending Cancelled
Carbon Dioxide Pending Cancelled
BUN Pending Cancelled
Creatinine Pending Cancelled
Glucose Pending Cancelled
Calcium Pending Cancelled
Total Bilirubin
AST
ALT
Alkaline Phosphatase
09/13/23
20:40
WBC Pending
Hgb Pending
Hct Pending
Plt Count Pending
PT
INR
APTT
Sodium
Potassium
Chloride
Carbon Dioxide
BUN
Creatinine
Glucose
Calcium
Total Bilirubin
AST
ALT
Alkaline Phosphatase
Vital Signs:
Vital Signs
Temp Pulse Resp BP Pulse Ox
97.9 F 117 13 145/102 96
09/13/23 12:13 09/13/23 13:00 09/13/23 13:00 09/13/23 13:00 09/13/23 13:00
I&O
09/12/23 09/13/23 09/14/23
06:59 06:59 06:59
Intake Total 1175 / 1330 193 / 193
Output Total 905 / 905 265 / 265
Balance 270 / 425 1670 / 1670
Physical Exam
-
General: Well Developed and Well Nourished
HEENT: Normocephalic and Atraumatic
Respiratory: Clear to Auscultation; Negative Wheezes or Rales
Cardiac: Regular Rhythm and S1/S2
GI: Other (surgical site intact. decreased sounds)
Genito-urinary: No Costovertebral Tender
Neuro: AO x 3
Hematologic / Lymphatic: No Lymphadenopathy
Psych: Calm
Data Reviewed
-
Critical Care Time (in minutes): 39
Labs: Labs Reviewed by me
--- NOTE | 2023-09-13 13:30 | PTCARENOTE ---
Labs resent per MD order. No other changes. Encouraged to use IS and getting about 1300 mls
[2023-09-13 13:52] LABS: Hematocrit 46.4 % (39.0-52.0); Hemoglobin 15.8 g/dL (13.0-18.0); Mean Corp Hgb Conc. 34.1 g/dL (33.0-37.0); Mean Platelet Volume 11.2 fL (7.4-10.4); Platelet Count 115 10^3/uL (130-400); Red Blood Cell Count 5.27 10^6/uL (4.70-6.10); Red Cell Dist. Width 13.9 % (11.5-14.5); White Blood Cell Count 21.5 10^3/uL (4.8-10.8)
[2023-09-13 14:02] LABS: Lactic Acid 3.2 mmol/L (0.7-2.0)
[2023-09-13 14:26] LABS: Blood Urea Nitrogen 15 mg/dl (9-20); Calcium 7.8 mg/dl (8.4-10.2); Carbon Dioxide 20 mmol/L (22-30); Chloride 110 mmol/L (98-107); Estimated Creatinine Clearance 88 ml/min; Glucose 153 mg/dl (70-99); Potassium 4.5 mmol/L (3.5-5.1); Sodium 133 mmol/L (135-145); eGFR > 60.00
[2023-09-13] MEDS: NSS IV (14:33)
--- NOTE | 2023-09-13 14:40 | PTCARENOTE ---
Dr. Prabhakar updated on labs
[2023-09-13] MEDS: LACTATED RINGERS IV (16:30)
[2023-09-13] MEDS: LR 1000 IV ×2 (16:30→22:26)
--- NOTE | 2023-09-13 17:00 | PTCARENOTE ---
Remains resting- Repositionied. Overalls states his abd is sore but he is able to rest. Is using the BOAT DISPATCHER. Respirs are unlabored. VS as documented. NG draining brownish-very sl bloody tinged drainage but mostly brown. UO as documented. IV LR
infusing at 150 ml/hr. Heparin at 500 units/hr. Will continue to monitor
[2023-09-13 18:14] LABS: Glucose - Point of Care 122 mg/dl (70-99)
--- NOTE | 2023-09-13 18:20 | PTCARENOTE ---
Labs sent as ordered. No changes in assessment
[2023-09-13 18:39] LABS: Hematocrit 42.6 % (39.0-52.0); Hemoglobin 14.6 g/dL (13.0-18.0); Mean Corp Hgb Conc. 34.3 g/dL (33.0-37.0); Mean Corpuscular Hgb 30.1 pg (27.0-31.0); Mean Corpuscular Volume 87.8 fL (80.0-94.0); Mean Platelet Volume 10.9 fL (7.4-10.4); Platelet Count 108 10^3/uL (130-400); Red Blood Cell Count 4.85 10^6/uL (4.70-6.10); Red Cell Dist. Width 14.1 % (11.5-14.5); White Blood Cell Count 19.4 10^3/uL (4.8-10.8)
[2023-09-13 18:51] LABS: APTT 36.9 Sec (23.4-35.0)
[2023-09-13 19:01] LABS: Lactic Acid 2.4 mmol/L (0.7-2.0)
[2023-09-13 19:02] LABS: Blood Urea Nitrogen 18 mg/dl (9-20); Calcium 7.5 mg/dl (8.4-10.2); Carbon Dioxide 22 mmol/L (22-30); Chloride 109 mmol/L (98-107); Estimated Creatinine Clearance 79 ml/min; Glucose 131 mg/dl (70-99); Potassium 4.5 mmol/L (3.5-5.1); Sodium 133 mmol/L (135-145); eGFR > 60.00
--- NOTE | 2023-09-13 19:25 | PTCARENOTE ---
Dr. Prabhakar updated on labs
[2023-09-13] MEDS: OFIRMEV 100 IV (20:29)
--- NOTE | 2023-09-13 20:30 | PTCARENOTE ---
Received pt. at 1900. Pt. currently in bed. Drowsy, but arousable and oriented. Pt. with multiple c/o pain. Educated patient on use of VICE PRESIDENT MARKETING & DEVELOPMENT pump. IV Offirmev ordered and given. Afebrile. Heart rhythm sinus tachy. BP normotensive. Pt. currently on 2L
nasal cannula. Lungs sound diminished. Pt. NPO with ice chips. Chavez catheter in places, draining 25-30ml/hr. Skin as documented. Discussed plan of care. Vital signs stable at this time.
[2023-09-13 23:28] LABS: Lactic Acid 3.1 mmol/L (0.7-2.0)
[2023-09-13 23:55] LABS: Glucose - Point of Care 123 mg/dl (70-99)
[2023-09-14] VITALS (25 sets, daily range): BP systolic 93–153; BP diastolic 67–103; BMI 23.0
--- NOTE | 2023-09-14 00:35 | PTCARENOTE ---
Pt. assessment unchanged. Continue to encourage patient to use SOIL SCIENCE PROFESSOR pump for his pain. Vital signs stable at this time.
[2023-09-14] MEDS: ZOSYN 50 IV ×4 (02:10→18:39)
[2023-09-14] MEDS: ZOFRAN 4 MG IV (02:25)
[2023-09-14 03:14] LABS: % Basophils 0.4 % (0-2); % Eosinophils 1.7 % (0-6); % Immature Granulocytes 0.5 % (0-0.5); % Lymphocytes 6.4 % (20.5-51.1); % Monocytes 7.4 % (1.7-9.3); % Neutrophils 83.6 % (42.2-75.2); Absolute Basophils 0.1 10^3/uL (0-0.2); Absolute Eosinophils 0.4 10^3/uL (0-0.7); Absolute Immature Granulocytes 0.1 10^3/uL (0-0.05); Absolute Lymphocytes 1.3 10^3/uL (1.2-3.4); Absolute Monocytes 1.5 10^3/uL (0.1-0.6); Absolute Neutrophils 17.4 10^3/uL (1.4-6.5); Hemoglobin 13.5 g/dL (13.0-18.0); Mean Corp Hgb Conc. 32.9 g/dL (33.0-37.0); Mean Corpuscular Volume 91.1 fL (80.0-94.0); Mean Platelet Volume 11.6 fL (7.4-10.4); Nucleated Red Blood Cells % 0 % (-); Platelet Count 100 10^3/uL (130-400); Red Cell Dist. Width 14.1 % (11.5-14.5); White Blood Cell Count 20.8 10^3/uL (4.8-10.8)
[2023-09-14 03:26] LABS: APTT 55.9 Sec (23.4-35.0)
[2023-09-14 03:27] LABS: Lactic Acid 3.2 mmol/L (0.7-2.0)
[2023-09-14 03:28] LABS: ALT (SGPT) 51 U/L (0-50); AST (SGOT) 78 U/L (17-59); Albumin 2.5 g/dl (3.5-5.0); Alkaline Phosphatase 77 U/L (38-126); Blood Urea Nitrogen 25 mg/dl (9-20); Calcium 7.7 mg/dl (8.4-10.2); Carbon Dioxide 22 mmol/L (22-30); Chloride 107 mmol/L (98-107); Estimated Creatinine Clearance 61 ml/min; Glucose 112 mg/dl (70-99); Potassium 4.7 mmol/L (3.5-5.1); Sodium 136 mmol/L (135-145); Total Bilirubin 0.9 mg/dl (0.2-1.3); Total Protein 4.6 g/dl (6.3-8.2); eGFR > 60.00
--- NOTE | 2023-09-14 04:00 | PTCARENOTE ---
Pt. assessment unchanged. AM labs drawn. Vital signs stable at this time,
[2023-09-14] MEDS: LR 1000 IV (05:13)
[2023-09-14 07:35] LABS: Lactic Acid 3.8 mmol/L (0.7-2.0)
--- NOTE | 2023-09-14 09:00 | PTCARENOTE ---
Rec'd pt at 0800 awake resting in bed. States he doesn't feel well. Admits to continued abd pain and the inability to sleep more than 20 min at a time. Speech is clear. BOB. SKin is pale pink wm and dry. Respirs are shallow but non-labored on 4l nc
with sats of 95-96%- decreased to 3l nc at 0830 with sats of95%. BS are decreased at the bases. Monitor ST in the 120's. VS as documented. + pulses. Dp pulses are weak to palp but PT and DP pulses easily audible with the doppler. No edema SCD's in
place. Abd is round and soft but tender with 8/10 abd discomfort per pt- sharp/tender in nature and enough to wake him up when he dozes. + hypoactive BS. R nare NG with brownish drainage to cont suction at 80 mm/hg. Irrigated without diff. Midline
abd aquacell dressing with old drainage. Intact. Thermistor garcía in place for jovani urine. IV LR along with FIREMAN HELPER infusing via LAC IV site. Dilaudid FIREMAN HELPER 0.2 mg dose/10 minlockout/max 1.2 mg/hr. Pt using controller appropriately. Heparin gtt continues
to infuse at 500 units/hr via R forearm IV site. Dr. Prabhakar in this am. LA drawn at 0715 and resulted at 3.8. Per MD order pt taken currently for CTA of the Abdomen. Plan of care reviewed with pt.
--- NOTE | 2023-09-14 09:05 | W.PN.VS ---
Today's Communication / Plan
-
CTA abd and pelvis
iv hydration
pain control
possible return to OR
Assessment/Plan
-
POD 1 Exploratory laparotomy, lysis of adhesions, aortomesenteric bypass nick thrombectomy, mesenteric arteriogram, patch angioplasty of aortomesenteric bypass
Plan:
-KEEP heparin at 500/hr
-Cont Zosyn
-unclear as to why lactate bumped. Will check CTA to eval but may need ex lap
-COMPUTER PROGRAMMING SUPERVISOR
-would have expected more improvement at this time
Subjective Data
-
Date of Service: September 14, 2023
Patient continues to have abd pain this am
Objective Data
-
Vital Signs
Temp Pulse Resp BP Pulse Ox
98.8 F 123 16 120/86 96
09/14/23 03:04 09/14/23 06:00 09/14/23 08:00 09/14/23 06:00 09/14/23 08:00
Intake and Output
09/13/23 09/14/23 09/15/23
06:59 06:59 06:59
Intake Total 1175 / 1330 4700 / 4855 340 / 340
Output Total 905 / 905 1020 / 1065 45 / 45
Balance 270 / 425 3680 / 3790 295 / 295
Intake:
Oral fluids 0 / 0
IV fluids (Total) 1175 / 1330 4570 / 4725 310 / 310
Heparin 25 / 30 120 / 125 10 / 10
LR 4000 / 4150 300 / 300
Normosol 100 / 100
Nss 1,000 ml @ 150 mls/hr IV . 750 / 900 450 / 450
[id number] [facility] Rx#:[id number]
nss 300 / 300
IV piggybacks 100 / 100
Amount instilled into GI Tube ( 0 / 0 30 / 30 30 / 30
Total)
Stanislaus Sump 0 / 0 30 / 30 30 / 30
Output:
Gastrointestinal tube output ( 0 / 0 300 / 300
Total)
Stanislaus Sump 0 / 0 300 / 300
Urine, Chavez 905 / 905 720 / 765 45 / 45
Lab Results
09/14/23 03:04
09/14/23 03:04
Calcium 7.7 mg/dl (8.4-10.2) L 09/14/23 03:04
Phosphorus 5.4 mg/dl (2.5-4.5) H 09/13/23 03:17
Magnesium 1.8 mg/dl (1.6-2.3) 09/13/23 03:17
Total Bilirubin 0.9 mg/dl (0.2-1.3) 09/14/23 03:04
Direct Bilirubin 0.4 mg/dl (0.0-0.4) 09/13/23 03:17
AST 78 U/L (17-59) H 09/14/23 03:04
ALT 51 U/L (0-50) H 09/14/23 03:04
Alkaline Phosphatase 77 U/L (38-126) 09/14/23 03:04
Total Protein 4.6 g/dl (6.3-8.2) L 09/14/23 03:04
Albumin 2.5 g/dl (3.5-5.0) L 09/14/23 03:04
Physical Exam
-
rrr
ctab
difusely tender, mild distension, soft
2+ fem pulses
lactate elevated this am
urine output still marginal despite fluids
hgb stable
cr 1.3
--- NOTE | 2023-09-14 09:49 | W.PN.UPDATE ---
Update Note
Progress Note Update
CTA reviewed
SMA bypass is patent
loops of dilated bowel
will discuss with general surgery
Not sure there is anything else from vasc perspective at this time
pain control
fluids
--- NOTE | 2023-09-14 10:00 | PTCARENOTE ---
Returned from CT scan. Dr. Prabhakar updated. Pt c/o abd pain despite using ASSEMBLY OPERATOR. Orders obtained. Call antonio in reach.
--- NOTE | 2023-09-14 10:03 | W.PN.INTV ---
Today's Communication / Plan
Recommendations
Continue LR at the current rate
Monitor renal function
Monitor lactate level
Serial abdominal exam-based on CT bypass is patent. Maintain heparin drip-follow PTT
NG tube in place
Colorectal surgery to evaluate patient for possible bowel ischemia
Assessment
-
58-year-old man with past medical history noted, admitted to the emergency room with abdominal pain. Found to have bowel ischemia due to occlusion of prior aortic mesenteric bypass. Apparently patient stopped taking Plavix and statin since January
2022. Only on aspirin, emergently taken to the operating room. Transferred to the critical care unit, we were consulted for critical care management.
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
Status post:Exploratory laparotomy, lysis of adhesions, aortomesenteric bypass nick thrombectomy, mesenteric arteriogram, patch angioplasty of aortomesenteric bypass
Leukocytosis due to mesenteric ischemia
Hyperglycemia
Lactic acidosis
Conditions present prior admission:
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
graft bypass into the celiac and SMA vessels.
Tobacco abuse
PFT's 06-19-21 with moderate airflow obstruction with some reversibility postbronchodilator on spirometry.-Not on bronchodilators
Moderate COPD/emphysema-not seen by pulmonary in the outpatient office for
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
History of left gastric anemic DVT status post apixaban 03/2021 post left knee surgery
History lumbar vasectomy
Chronic back pain-recent steroid taper
Assessment and plan:
Postoperative day 1
Hemodynamically stable, has not required vasopressors.
Continues to report abdominal pain.
NG tube in place without increased output.
Despite significant IV fluid resuscitation, lactate level increased compared to yesterday, creatinine is trending higher.
Discussed with Dr. Prabhakar: CT abdomen obtained, appears that the bypass is patent.
There is concerns for possible bowel ischemia.
Colorectal surgery has been consulted for evaluation.
Continue IV fluids LR at 150 cc an hour.
Chavez urinary output
Trend lactic acid
-
Maintain systolic blood pressure above 65 mmHg.
Follow renal function.
Vascular surgery notes reviewed, case discussed as above.
-
Continue heparin drip, follow PTT, has been therapeutic.
Monitor for bleeding, hemoglobin has been stable.
-
Pain control with narcotics, to start Dilaudid CHANNEL BUSINESS MANAGER.
Monitor respiratory status closely in the setting of underlying moderate COPD.
Not bronchospastic on exam
Patient does not take any inhalers in the outpatient setting.
-
Antibiotics per vascular surgery-Zosyn
Monitor leukocytosis-currently afebrile.
Not requiring vasopressors.
-
Hyperglycemia, insulin sliding scale-Target [id number] on target.
Currently patient is n.p.o.
May need insulin drip if hypoglycemia persists with blood sugars over 200.
-
Smoking cessation encouraged.
-
Maintain ICU monitoring.
Subjective Dataa
Subjective Data
Date of Service:
Date of Service: September 14, 2023
Chief Complaint: Financial Services Officer Follow Up (Status post aortomesenteric bypass occlusion.)
Subjective:
Continues to report abdominal pain.
Afebrile
NG tube in place without increased output.
Denies nausea or vomiting
Review of Systems
GI: Abdominal Pain
Neuro: Headache (n) and Dizziness (n)
Genitourinary: Chavez
Objective Data
Data Reviewed
Vital Signs / I&O / Oxygen:
Vital Signs
Temp Pulse Resp BP Pulse Ox
98.8 F 116 19 153/93 94
09/14/23 03:04 09/14/23 09:36 09/14/23 09:36 09/14/23 09:36 09/14/23 09:00
Intake and Output
09/13/23 09/14/23 09/15/23
06:59 06:59 06:59
Intake Total 1175 / 1330 4700 / 4855 495 / 495
Output Total 905 / 905 1020 / 1065 85 / 85
Balance 270 / 425 3680 / 3790 410 / 410
SaO2 94
Nasal Cannula flow liters per 4
minute
Physical Exam
General: Respiratory Distress (n) and Pain (Abdominal)
HEENT: Normocephalic
Cardiovascular: S1-S2 and Regular Rhythm
Respiratory: Clear and Non-Labored Respirations
GI: Soft, Other ( incision is intact without hematoma) and Other (Decreased bowel sounds)
Neurology: Awake, Alert, Oriented and No Motor Deficits
Skin: Warm
Labs/Micro/Reports
Lab Data
09/14/23 03:04
09/14/23 03:04
Laboratory Results
09/13/23 09/13/23 09/13/23
09:54 12:00 18:00
APTT 53.5 H Cancelled Cancelled
09/13/23 09/14/23
18:21 03:04
APTT 36.9 H 55.9 H
Microbiology
09/12/23 18:05 Blood/Venous Blood Culture - Preliminary
No Growth in 24 hours- Final report to follow
09/12/23 18:05 Nasal Swab Influenza Types A & B (ALAN) - Final
Negative for Influenza A & B, NAAT
Negative results must be combined with clinical observations
and patient history.
Nucleic Acid Amplification test (NAAT)performed on the
[employer] platform.
[2023-09-14] MEDS: DILAUDID 0.5 MG IV ×3 (10:45→17:44)
--- NOTE | 2023-09-14 10:45 | PTCARENOTE ---
Dr. Ballard in to see pt. Still admits to 01/06 abd pain despite DOPE FIRER. Medicated with Dilaudid 0.5 mg IV for breakthrough pain. Labs sent as ordered. No other changes
[2023-09-14] MEDS: NSS 1000 IV ×3 (10:46→23:36)
[2023-09-14 11:11] LABS: Hemoglobin 12.1 g/dL (13.0-18.0); Mean Corp Hgb Conc. 34.6 g/dL (33.0-37.0); Mean Corpuscular Hgb 30.6 pg (27.0-31.0); Mean Corpuscular Volume 88.6 fL (80.0-94.0); Mean Platelet Volume 12.2 fL (7.4-10.4); Platelet Count 104 10^3/uL (130-400); Red Blood Cell Count 3.95 10^6/uL (4.70-6.10); Red Cell Dist. Width 14.2 % (11.5-14.5); White Blood Cell Count 23.7 10^3/uL (4.8-10.8)
[2023-09-14 11:23] LABS: APTT 41.2 Sec (23.4-35.0)
[2023-09-14 11:25] LABS: Lactic Acid 3.4 mmol/L (0.7-2.0)
[2023-09-14 11:26] LABS: Blood Urea Nitrogen 29 mg/dl (9-20); Calcium 7.6 mg/dl (8.4-10.2); Carbon Dioxide 25 mmol/L (22-30); Chloride 104 mmol/L (98-107); Estimated Creatinine Clearance 64 ml/min; Glucose 103 mg/dl (70-99); Potassium 4.5 mmol/L (3.5-5.1); Sodium 134 mmol/L (135-145); eGFR > 60.00
--- NOTE | 2023-09-14 11:46 | W.PN.HOSP.TC ---
Today's Communication/Plan
-
pain control, fluids, IV Heparin
surgical evaluation for possible bowel ischemia
Assessment / Plan
Assessment / Plan
Assessment:
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
- s/p Exploratory laparotomy, lysis of adhesions, aorto-mesenteric bypass Tona thrombectomy, mesenteric arteriogram, patch angioplasty of aorto-mesenteric bypass
- lactic acidosis persistent
- CT-A 09/13 showing patient bypass, concern for bowel ischemia
- Colorectal consulted
- Vascular following
- continue IV Heparin - requires intensive monitoring
- Dilaudid TREASURY MANAGER for pain control
- continue Zosyn day 3 for persistent leukocytosis. follow cultures
Hyperglycemia
- SSI while NPO
Tobacco abuse- remains actively smoking
Moderate COPD/emphysema
CAD s/p prior hx of NSTEMI
Hx of DVT status post apixaban 03/2021 post left knee surgery
Chronic back pain-recent steroid taper
Hyponatremia
Hypocalcemia - replete
DVT ppx: IV Heparin
Code: Full
Total Critical Care Time 42 minutes. I was immediately available to the patient and staff. I personally examined, reviewed labs, diagnostic images/reports, interpretations, treatment plans, discussed patient care with other providers and family
or caregivers (if patient is unable to make decisions), entered orders as appropriate and documented the medical record.
Anticipated Discharge: > 48 hours
Subjective/Interval History
-
Date of Service: September 14, 2023
persistent abd pain this morning, repeat lactate higher
repeat CT showing patent bypass but possible bowel ischemia
Objective Data
-
Labs:
Laboratory Results
09/14/23 09/14/23 09/14/23
03:04 11:01 16:00
WBC 20.8 H 23.7 H Pending
Hgb 13.5 12.1 L Pending
Hct 41.0 35.0 L Pending
Plt Count 100 L 104 L Pending
APTT 55.9 H 41.2 H Pending
Sodium 136 134 L Pending
Potassium 4.7 4.5 Pending
Chloride 107 104 Pending
Carbon Dioxide 22 25 Pending
BUN 25 H 29 H Pending
Creatinine 1.3 1.3 Pending
Glucose 112 H 103 H Pending
Calcium 7.7 L 7.6 L Pending
Total Bilirubin 0.9
AST 78 H
ALT 51 H
Alkaline Phosphatase 77
09/14/23
22:00
WBC Pending
Hgb Pending
Hct Pending
Plt Count Pending
APTT Pending
Sodium Pending
Potassium Pending
Chloride Pending
Carbon Dioxide Pending
BUN Pending
Creatinine Pending
Glucose Pending
Calcium Pending
Total Bilirubin
AST
ALT
Alkaline Phosphatase
Vital Signs:
Vital Signs
Temp Pulse Resp BP Pulse Ox
97.6 F 125 12 126/85 94
09/14/23 08:00 09/14/23 11:00 09/14/23 11:00 09/14/23 11:00 09/14/23 09:00
I&O
09/13/23 09/14/23 09/15/23
06:59 06:59 06:59
Intake Total 1175 / 1330 4700 / 4855 805 / 805
Output Total 905 / 905 1020 / 1065 195 / 195
Balance 270 / 425 3680 / 3790 610 / 610
Physical Exam
-
General: Respiratory Distress
HEENT: Normocephalic, Atraumatic and Other (+NGT)
Respiratory: Clear to Auscultation; Negative Wheezes or Rales
Cardiac: Regular Rhythm and S1/S2
GI: Tender and Distended
Genito-urinary: No Costovertebral Tender
Neuro: AO x 3
Psych: Calm
Data Reviewed
-
Critical Care Time (in minutes): 42
Labs: Labs Reviewed by me
[2023-09-14] MEDS: LR IV (12:45)
[2023-09-14 12:58] LABS: Glucose - Point of Care 108 mg/dl (70-99)
[2023-09-14] MEDS: FLUSH (NSS) 1 FLUSH IV ×2 (13:00→18:40)
--- NOTE | 2023-09-14 13:00 | PTCARENOTE ---
Repositioned. Remedicated with Dilaudid 0.5 mg IV for 6/10 breakthrough abd pain. VS as documented. Assessment is otherwise unchanged.
--- NOTE | 2023-09-14 13:04 | CON.GS ---
Addendum entered and electronically signed by Francisco Ballard MD 09/14/23 20:57:
I saw and examined the patient.
The CENTRAL OFFICE TROUBLE SHOOTER's note was reviewed and I agree with the note.
Comment:
Seen in am with CENTRAL OFFICE TROUBLE SHOOTER.
History, vitals, labs, imaging reviewed. Patient seen and examined.
58 yo M smoker with concern for small bowel ischemia POD2 s/p sma and aortomesenteric thrombectomy and patch angioplasty with ex lap by vascular surgery. Had rising creatinine (1.3) and lactate (3.8) this am leading to the consultation. Also
tachycardic, afebrile, and with persistent leukocytosis. On exam was tender without overt perotinitis. Imaging via CT today reviewed with Dr. Jessica and Vanna with preservation of mesenteric arterial blood supply with some possible R sided
small bowel thickening. Situation discussed at bedside with patient and also with Dr. Prabhakar. Option of exploratory laparotomy with possible partial bowel resection and possible need for second look discussed vs. continuing medical management
and following labs q 6 hours. Decided to hold on surgical option and follow along closely with understanding that surgery may be required if situation worsens. All questions answered.
Of note, later in the day, creatinine remained 1.3 and lactate decreased to 2.3--some improvement. Continuing to hold on surgical option for now.
Thanks.
Original Note:
Consultation
-
Date/Time Consultation Requested: 09/14/23 0950
Date/Time Consultation Performed: 09/14/23 1020
Requesting Provider: Vanna
Performing Provider: Aditya Ballard
Reason for Consultation: eval for ischemic bowel
Medical History
-
Chief Complaint: abdominal pain
History of Present Illness:
This is a 58 yo male with h/o CAD/OK and sma and celiac bypass in 2020 who is a current smoker who presented 2 days ago via the ED with severe abdominal pain secondary to acute mesenteric ischemia secondary to mesenteric bypass thrombosis and was
taken emergently to the OR by vascular surgery for management. He underwent sma and aortomesenteric thrombectomy and patch angioplasty with ex lap for OSKAR. He has been recovering in ICU and was able to be extubated. NGT in place with bilious
outputs. CARD CHECKER being utilized for pain management. This AM, he had noted increased abdominal pain on exam prompting repeat CT imaging and labs. Leukocytosis trending up although still lower than presentation and with lactic acid trending up as well.
He is tachycardic with a stable blood pressure off pressors. He notes, he is more comfortable than this morning. There is some guarding on exam and generalized tenderness but abdomen is soft and without significant distention. No bloody stools.
Past Medical History
Past Medical History: CAD (h/o OK) and Other (LLE DVT)
Past Surgical History: Orthopedic (Left knee arthroscopy, lumbar discectomy) and Other (Hemorrhoidectomy, SMA and Celiac bypass 05/2021)
Social History
Tobacco: Smoker
Alcohol: None
Family History
Family History: Reviewed & Not Pertinent
Allergies / Home Medications
Allergy/AdvReac Type Severity Reaction Status Date / Time
No Known Allergies Allergy Verified 09/12/23 17:54
Medication Instructions Recorded Confirmed Type
aspirin 81 mg tablet,delayed 81 mg PO DAILY Blood Clot 09/12/23 09/12/23 History
release Prevention/Tx
ibuprofen 200 mg capsule 800 mg PO TID PRN mild pain/fever 09/12/23 09/12/23 History
melatonin 5 mg tablet 20 mg PO HS Sleep 09/12/23 09/12/23 History
methylprednisolone 4 mg tablets in 4 mg PO UD Anti-Inflammatory 09/12/23 09/12/23 History
a dose pack
Review of Systems
-
History Source: Patient
All other systems: Negative unless noted
A 10 point review of systems was completed, and was negative except as per HPI.
Physical Exam
Vital Signs
Temp Pulse Resp BP Pulse Ox
97.6 F 125 12 126/85 94
09/14/23 08:00 09/14/23 11:00 09/14/23 11:00 09/14/23 11:00 09/14/23 09:00
09/13/23 09/14/23 09/15/23
06:59 06:59 06:59
Actual Weight 71 kg 74.8 kg
Body Mass Index (BMI) 23.0
Lab Results
WBC 23.7 10^3/uL (4.8-10.8) H 09/14/23 11:01
Hgb 12.1 g/dL (13.0-18.0) L 09/14/23 11:01
Hct 35.0 % (39.0-52.0) L 09/14/23 11:01
Plt Count 104 10^3/uL (130-400) L 09/14/23 11:01
Abs Immat Gran (auto) 0.1 10^3/uL (0-0.05) H 09/14/23 03:04
Neutrophils % 83.6 % (42.2-75.2) H 09/14/23 03:04
Physical Exam
General: Comfortable
HEENT: Moist Mucous Membranes
Respiratory: Non Labored Respirations
GI: Soft, Non Distended and Tender (generalized with some guarding)
Skin: Warm
Neuro: Awake, Alert and AO x 3
Psych: Calm
Data Reviewed
-
CT Scan: Image Personally Visualized and interpreted, Report Reviewed by me, Discussed with Physician (reviewed with Dr.s Ballard, Vanna Jessica), Discussed with Nurse and Discussed with Patient
Labs: Labs Reviewed by me, Discussed with Physician, Discussed with Patient and Discussed with Family
Old Records: Reviewed
Assessment / Plan
-
58 yo male with h/o current tobacco use, CAD/OK and sma and celiac bypass in 2020 2 days ago via the ED with severe abdominal pain secondary to acute mesenteric ischemia secondary to mesenteric bypass thrombosis.and was taken emergently to the OR by
vascular surgery for management. Now POD #1 sma and aortomesenteric thrombectomy and patch angioplasty with ex lap for OSKAR. Seen in evaluation today for increased abdominal pain and concern for possible bowel ischemia. Repeat CT imaging reviewed
with surgical team and radiologist with final read pending. SMA bypass appears patent with some mild new bowel wall thickening noted.
NGT in place with bilious output, ABD soft with generalized tenderness, some guarding. No melena reported. Leukocytosis trending up although still lower than presentation and with lactic acid trending up through the night with last level trending
slightly down to 3.4 (3.8). He is tachycardic with a stable blood pressure off pressors. He notes, he is more comfortable now than this morning. Utilizing CARD CHECKER.
--Hold off on emergent OR intervention for now but marisel follow labs/exams closely. If condition deteriorates will plan ex lap to evaluate bowels
--Keep NPO/NGT to LIWS
--- NOTE | 2023-09-14 15:09 | CM ---
Patient with Dx acute mesenteric ischemia secondary to mesenteric bypass thrombosis s/p sma and aortomesenteric thrombectomy and patch angioplasty with ex lap for OSKAR. NPO/NGT/IVF. O2 3L midflow. Dilaudid TAIL RIPPER, IV Zosyn, Heparin gtt. Chavez.
Abdominal dressings. Bedrest.
Spoke with patient's daughter Gonzalo, who lives in [place]; the patient resides alone in a 2nd floor apartment with 1 flight outside stairs.
He has been independent in ADLs and ambulation.
The patient was active and worked.
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
The patient has no DME or prior VN.
PCP - [facility]
Pharmacy - [facility]
The patient's closest relatives are Mirian, ex- and his son who lives in [facility].
CM continuing to follow for d/c needs.
Plan home.
--- NOTE | 2023-09-14 16:30 | PTCARENOTE ---
Dozed after earlier Dilaudid. Currently awake. States he still has abd pain about 6/10 but better than when he first came into the hospital. Respirs are unlabored. Tolerating 3l with sats of 94%. Encouraged to use IS as he is getting about 500-750
mls today and BS are decreased at the bases. VS as documented. Abd dressing unchanged. Hypoactive BS. NG draining brownish drainage. UO as documented. Labs sent as ordered. Repositioned. Taking few ice chips otherwise NPO. Pt aware of possibilty of
abd surgery depending on labs. Will continue to monitor. Pts ex in to see pt earlier.
[2023-09-14 16:35] LABS: Hematocrit 33.7 % (39.0-52.0); Hemoglobin 11.8 g/dL (13.0-18.0); Mean Corpuscular Hgb 30.9 pg (27.0-31.0); Mean Corpuscular Volume 88.2 fL (80.0-94.0); Mean Platelet Volume 12.3 fL (7.4-10.4); Platelet Count 102 10^3/uL (130-400); Red Blood Cell Count 3.82 10^6/uL (4.70-6.10); Red Cell Dist. Width 14.3 % (11.5-14.5); White Blood Cell Count 25.4 10^3/uL (4.8-10.8)
[2023-09-14 16:47] LABS: APTT 40.6 Sec (23.4-35.0)
[2023-09-14 16:48] LABS: Lactic Acid 2.3 mmol/L (0.7-2.0)
[2023-09-14 16:54] LABS: Blood Urea Nitrogen 29 mg/dl (9-20); Calcium 7.2 mg/dl (8.4-10.2); Carbon Dioxide 24 mmol/L (22-30); Chloride 108 mmol/L (98-107); Estimated Creatinine Clearance 64 ml/min; Glucose 94 mg/dl (70-99); Potassium 4.5 mmol/L (3.5-5.1); Sodium 134 mmol/L (135-145); eGFR > 60.00
--- NOTE | 2023-09-14 17:20 | PTCARENOTE ---
Dejon Prabhakar and Elio updated on labs. Will hold on surgery currently. Pt aware. No other changes
--- NOTE | 2023-09-14 17:45 | PTCARENOTE ---
Remedicated at 1745 with Dilaudid 0.5 mg IV for abd breakthrough pain. No other changes
--- NOTE | 2023-09-14 20:00 | PTCARENOTE ---
Addendum entered by Gin Schaffer RN 09/15/23 06:19:
alexandro sm amt ice chips
Original Note:
Rec'd pt resting in bed, oriented, flat affect, on CLEAT BLANKER dilaudid- able to rec 0.2mg q 10min, no basal; ST, bp stable, distal pulses via doppler, skin warm/dry, O2 3 literes nc, lungs decr, enc to use IS- reaches 500ml, no cough, hypo bowel sounds,
no bm, abd tender to palpation, abd incis w/ aqaucell dsg- old drainage noted,R nares salem to 80 cont wall suction draining brown liquid, irrigated w/ 30 ml tap h20 q4h, garcía draining jovani urine
[2023-09-14] MEDS: DILAUDID PCA 30 IV (20:52)
[2023-09-14] MEDS: HEPARIN 25000 UNITS/250 ML IV (20:54)
[2023-09-14 21:48] LABS: Hematocrit 32.2 % (39.0-52.0); Hemoglobin 11.3 g/dL (13.0-18.0); Mean Corp Hgb Conc. 35.1 g/dL (33.0-37.0); Mean Corpuscular Hgb 30.9 pg (27.0-31.0); Mean Platelet Volume 12.7 fL (7.4-10.4); Platelet Count 103 10^3/uL (130-400); Red Blood Cell Count 3.66 10^6/uL (4.70-6.10); Red Cell Dist. Width 14.3 % (11.5-14.5); White Blood Cell Count 26.2 10^3/uL (4.8-10.8)
[2023-09-14 21:53] LABS: APTT 44.8 Sec (23.4-35.0)
[2023-09-14 21:55] LABS: Lactic Acid 2.1 mmol/L (0.7-2.0)
[2023-09-14 22:47] LABS: Blood Urea Nitrogen 29 mg/dl (9-20); Calcium 6.8 mg/dl (8.4-10.2); Carbon Dioxide 23 mmol/L (22-30); Chloride 112 mmol/L (98-107); Estimated Creatinine Clearance 69 ml/min; Glucose 81 mg/dl (70-99); Potassium 4.2 mmol/L (3.5-5.1); Sodium 135 mmol/L (135-145); eGFR > 60.00
--- NOTE | 2023-09-14 23:00 | PTCARENOTE ---
Lis Alberto NP notified of Ca- 6.8; Dr argueta and Dr Ballard notified of abn labs
[2023-09-14] MEDS: CALCIUM GLUCONATE 130 MG IV (23:35)
[2023-09-14 23:45] LABS: Glucose - Point of Care 81 mg/dl (70-99)
[2023-09-15] VITALS (28 sets, daily range): BP systolic 108–135; BP diastolic 68–89; PULSE 108; O2SAT 95; BMI 23.3
--- NOTE | 2023-09-15 | PTCARENOTE ---
sys reviewed, 3 gm tasia gluconate hung over 1 hr per order; sys reviewed, lungs unch, CHG bath done, linens changed
[2023-09-15] MEDS: ZOSYN 50 IV ×5 (00:42→23:34)
[2023-09-15 03:57] LABS: Hematocrit 30.9 % (39.0-52.0); Hemoglobin 10.5 g/dL (13.0-18.0); Mean Corpuscular Hgb 30.7 pg (27.0-31.0); Mean Corpuscular Volume 90.4 fL (80.0-94.0); Mean Platelet Volume 12.6 fL (7.4-10.4); Platelet Count 131 10^3/uL (130-400); Red Blood Cell Count 3.42 10^6/uL (4.70-6.10); Red Cell Dist. Width 14.6 % (11.5-14.5); White Blood Cell Count 25.9 10^3/uL (4.8-10.8)
[2023-09-15 04:10] LABS: Lactic Acid 1.7 mmol/L (0.7-2.0)
--- NOTE | 2023-09-15 04:12 | PTCARENOTE ---
sys reviewed, changes noted
[2023-09-15 04:20] LABS: APTT 44.9 Sec (23.4-35.0)
[2023-09-15 04:31] LABS: Albumin 1.9 g/dl (3.5-5.0); Alkaline Phosphatase 73 U/L (38-126); Blood Urea Nitrogen 28 mg/dl (9-20); Calcium 7.5 mg/dl (8.4-10.2); Carbon Dioxide 25 mmol/L (22-30); Chloride 111 mmol/L (98-107); Estimated Creatinine Clearance 76 ml/min; Glucose 66 mg/dl (70-99); Potassium 4.1 mmol/L (3.5-5.1); Sodium 136 mmol/L (135-145); Total Protein 3.7 g/dl (6.3-8.2); eGFR > 60.00
[2023-09-15] MEDS: D5/0.45%NACL 1000 IV ×3 (05:00→23:33)
--- NOTE | 2023-09-15 05:05 | PTCARENOTE ---
Lis Alberto NP aware of glucose 66 on labs- IVF changed to d5 1/2 at 150/hr per order
[2023-09-15 05:11] LABS: ALT (SGPT) 843 U/L (0-50); AST (SGOT) 711 U/L (17-59)
--- NOTE | 2023-09-15 05:28 | PTCARENOTE ---
Lis Alberto NP aware of ALT & AST result
[2023-09-15] MEDS: CALCIUM GLUCONATE 100 IV (05:37)
--- NOTE | 2023-09-15 05:37 | PTCARENOTE ---
1 gm tasia gluconate hung over 1hr per order
[2023-09-15 06:22] LABS: Glucose - Point of Care 107 mg/dl (70-99)
--- NOTE | 2023-09-15 07:37 | W.PN.VS ---
Addendum entered and electronically signed by Skyler Lundberg MD 09/15/23 12:25:
Seen and examined earlier this a.m. with KATHY Ortiz. Agree with findings as noted below. Patient without new complaints. Notes abdominal pain slowly slightly improving. No nausea/vomiting. NG tube in place. Outputs including urine output as
noted, reviewed and charting. On exam he is in no acute distress. Breathing is unlabored. NG tube bilious. Abdomen is soft. Appropriate incisional tenderness. Dressing is clean dry and intact. Feet are warm. Chavez with clear yellow urine.
Labs reviewed. AST/ALT slightly elevated today. Lactate normalized CT scan from yesterday reviewed.
Plan/as discussed and noted below. Increase heparin drip to therapeutic. Continue antibiotics. Continue n.p.o./NG tube/IV fluids/Chavez. Appreciate general surgery evaluation.
Original Note:
Today's Communication / Plan
-
Seen and assessed with Dr. Lundberg
Assessment/Plan
-
POD 2.5 Exploratory laparotomy, lysis of adhesions, aortomesenteric bypass nick thrombectomy, mesenteric arteriogram, patch angioplasty of aortomesenteric bypass
Plan:
-Increase heparin to 1000/hour, switch to vascular protocol
-Cont Zosyn
-Continue ROBOTIC MACHINE OPERATOR
-Recheck all labs in 6 hours
-Continue NG tube, n.p.o.
-Keep Chavez today
Subjective Data
-
Date of Service: September 15, 2023
Patient seen at bedside this a.m. with Dr. Lundberg. Patient complains of moderate abdominal discomfort but states it is better than yesterday. Patient is using ROBOTIC MACHINE OPERATOR with acceptable relief. No events overnight.
Objective Data
-
Vital Signs
Temp Pulse Resp BP Pulse Ox
98.7 F 113 16 124/76 94
09/15/23 07:24 09/15/23 06:00 09/15/23 06:00 09/15/23 06:00 09/15/23 05:56
Intake and Output
09/14/23 09/15/23 09/16/23
06:59 06:59 06:59
Intake Total 4700 / 4855 4253.7 / 4253.7
Output Total 1020 / 1065 1905 / 1905
Balance 3680 / 3790 2348.7 / 2348.7
Intake:
Oral fluids 0 / 0
IV fluids (Total) 4570 / 4725 3953.7 / 3953.7
D5/0.45%NaCl 1,000 ml @ 150 mls 150 / 150
/hr IV .Q6H40M [facility] Rx#:[id number]
Heparin 120 / 125 120 / 120
LR 4000 / 4150 600 / 600
Nss 1,000 ml @ 150 mls/hr IV . 450 / 450
Q6H40M [facility] Rx#:[id number]
Nss 1,000 ml @ 150 mls/hr IV . 2850 / 2850
Q6H40M [facility] Rx#:[id number]
ROBOTIC MACHINE OPERATOR dilaudid 3.7 / 3.7
calcium 230 / 230
IV piggybacks 100 / 100 150 / 150
Amount instilled into GI Tube ( 30 / 30 150 / 150
Total)
Dickens Sump 30 / 30 150 / 150
Output:
Gastrointestinal tube output ( 300 / 300 800 / 800
Total)
Dickens Sump 300 / 300 800 / 800
Urine, Chavez 720 / 765 1105 / 1105
Calcium 7.5 mg/dl (8.4-10.2) L 09/15/23 03:48
Calcium Cancelled 09/15/23 03:48
Phosphorus 5.4 mg/dl (2.5-4.5) H 09/13/23 03:17
Magnesium 1.8 mg/dl (1.6-2.3) 09/13/23 03:17
Total Bilirubin 1.0 mg/dl (0.2-1.3) 09/15/23 03:48
Direct Bilirubin 0.4 mg/dl (0.0-0.4) 09/13/23 03:17
AST 711 U/L (17-59) H* 09/15/23 03:48
ALT 843 U/L (0-50) H* 09/15/23 03:48
Alkaline Phosphatase 73 U/L (38-126) 09/15/23 03:48
Total Protein 3.7 g/dl (6.3-8.2) L 09/15/23 03:48
Albumin 1.9 g/dl (3.5-5.0) L 09/15/23 03:48
Physical Exam
-
AAOx3
No tachypnea on 2 L
Tachycardia in the 110s
Diffusely tender, mild distension, soft
Abdominal aquacel with scant drainage
2+ fem pulses
NGT 400 overnight
lactate normalized
urine output 40 to 60 cc an hour
hgb 10.5
cr 1.1
AST 711
ALT 843
WBC still elevated 25.9
--- NOTE | 2023-09-15 07:41 | W.PN.INTV ---
Today's Communication / Plan
Recommendations
Added dextrose
Monitor blood sugars
Wean norepinephrine
Heparin drip continues
Neurovascular checks continue
Increase activity per surgery
Assessment
-
58-year-old man with past medical history noted, admitted to the emergency room with abdominal pain. Found to have bowel ischemia due to occlusion of prior aortic mesenteric bypass. Apparently patient stopped taking Plavix and statin since January
2022. Only on aspirin, emergently taken to the operating room. Transferred to the critical care unit, we were consulted for critical care management.
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
Status post:Exploratory laparotomy, lysis of adhesions, aortomesenteric bypass nick thrombectomy, mesenteric arteriogram, patch angioplasty of aortomesenteric bypass
Leukocytosis due to mesenteric ischemia
Hyperglycemia
Lactic acidosis
Conditions present prior admission:
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
graft bypass into the celiac and SMA vessels.
Tobacco abuse
PFT's 06-19-21 with moderate airflow obstruction with some reversibility postbronchodilator on spirometry.-Not on bronchodilators
Moderate COPD/emphysema-not seen by pulmonary in the outpatient office for
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
History of left gastric anemic DVT status post apixaban 03/2021 post left knee surgery
History lumbar vasectomy
Chronic back pain-recent steroid taper
Plan
Remains critically ill requiring pressors postoperatively, remains tachycardic
Overall feels better and hemodynamics have improved
Supplemental oxygen as needed
Aspiration precautions
Incentive spirometry encouraged
Nebulizers if needed-currently not bronchospastic
Postop day 2-Exploratory laparotomy, lysis of adhesions, aortomesenteric bypass nick thrombectomy, mesenteric arteriogram, patch angioplasty of aortomesenteric bypass
General surgery following-correspondence reviewed
Vascular surgery following-correspondence reviewed
Antibiotics per surgery-on Zosyn
Pain management-on hydromorphone as needed-appears to be controlled
Neurovascular checks continue
Heparin drip continues
Intravenous fluids
Norepinephrine drip-attempt to wean
Follow lactate
Monitor leukocytosis
Monitor renal function
Replace electrolytes
Follow hemoglobin
Transfuse as needed
Hypoglycemia noted
Add dextrose to lactated Ringer's-reviewed with pharmacy
Monitor liver functions-still significantly elevated
Smoking cessation encouraged
DVT prophylaxis-on heparin drip
Nutrition per surgery and vascular surgery
If able to be weaned off pressors and hemodynamics improve then transfer out of ICU-call pulmonary if respiratory issues arise
Critical care statement: A total of 40 minutes of critical care time was provided for this patient today. This includes management of unstable vital signs, evaluation of the patient at bedside, reviewing the patient's pertinent medical records
including radiographs, microbiology, laboratory evaluations, and discussion with primary team, consultants, pharmacy, nutrition, physical therapy, case management, charge nurse, critical care nursing, and respiratory therapy.
Subjective Dataa
Subjective Data
Date of Service:
Date of Service: September 15, 2023
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
Subjective:
Less tachycardic, no complaints of shortness of breath at rest, chest pain, chest congestion, and has abdominal pain when he is 'coughing'. He did not complain of new weakness or swelling.
Review of Systems
General: Other (Per HPI)
Objective Data
Data Reviewed
Vital Signs / I&O / Oxygen:
Vital Signs
Temp Pulse Resp BP Pulse Ox
98.7 F 113 16 124/76 94
09/15/23 07:24 09/15/23 06:00 09/15/23 06:00 09/15/23 06:00 09/15/23 05:56
Intake and Output
09/14/23 09/15/23 09/16/23
06:59 06:59 06:59
Intake Total 4700 / 4855 4253.7 / 4253.7
Output Total 1020 / 1065 1905 / 1905
Balance 3680 / 3790 2348.7 / 2348.7
SaO2 94
Nasal Cannula flow liters per 3
minute
Physical Exam
General: Respiratory Distress (n) and Pain (Abdominal-controlled)
HEENT: Normocephalic, Anicteric and Moist Mucous Membranes
Cardiovascular: Regular Rhythm
Respiratory: Crackles (Rare basilar), Rhonchi (n), Non-Labored Respirations, Accessory Resp Muscle Use (n) and Stridor (n)
GI: Soft, Distended, Other ( incision is intact without hematoma) and Other (Decreased bowel sounds)
Neurology: Awake, Alert and No Motor Deficits
Skin: Warm, Good Color, Cyanosis (n) and Jaundice (n)
Labs/Micro/Reports
Laboratory Results
09/14/23 09/14/23 09/14/23
11:01 16:22 21:31
APTT 41.2 H 40.6 H 44.8 H
09/15/23
03:48
APTT 44.9 H
Microbiology
09/12/23 18:05 Blood/Venous Blood Culture - Preliminary
No Growth in 48 hours- Final report to follow
09/12/23 18:05 Nasal Swab Influenza Types A & B (ALAN) - Final
Negative for Influenza A & B, NAAT
Negative results must be combined with clinical observations
and patient history.
Nucleic Acid Amplification test (NAAT)performed on the
[employer] platform.
--- NOTE | 2023-09-15 08:00 | PTCARENOTE ---
Assumed care of patient. Pt rec'd drowsy but easily arousable. A&Ox3. Flat affect. Able to BOB's but weak. S1 S2 reg w/ ST/PAC's on monitor. DP/PT's confirmed w/ doppler. No edema. Knee hi SCD's on. On 3L N/C...sats 94%. Lungs
diminished..poor effort. Coughing and deep breathing encouraged. Right nare [place]....flushed w/ 30mls tap water...draining liquid brown. Temp sensing garcía w/ jovani urine w/ sediment. García care done. Skin pale in color. Protective foam on
sacrum. Midline abdominal aquacell dressing...old drainage noted. Heparin gtt increased to 1000 units/hr per vascular...will follow protocol. IVF's infusing @ 150ml/hr w/ dilaudid livestock dealer...see livestock dealer intervention. Bedside handoff done at change of
shift. NPO x ice chips. VS documented. Call antonio within reach. Will continue to monitor closely.
[2023-09-15 08:44] LABS: Absolute Neutrophils -Man Diff 13.9 10^3/uL (1.4-6.5); Band Neutrophils 29 % (0-3); Lymphocytes 5 % (20-51); Monocytes 5 % (2-9); Segmented Neutrophils 25 % (42-75)
[2023-09-15 08:45] LABS: Burr Cells 1+; Metamyelocytes 30 % (-); Myelocytes 6 % (-); Normal RBC Morphology No; Platelets Checked Yes
[2023-09-15 08:46] LABS: Hypochromasia Slight; Polychromasia Slight; Tear Drop Red Blood Cells 1+
[2023-09-15 08:47] LABS: Anisocytosis Slight; Total Cells Counted 100
--- NOTE | 2023-09-15 08:51 | W.PN.GS2 ---
Today's Communication / Plan
-
Serial abdominal exams.
Assessment / Plan
-
This is a 58-year-old male smoker who presented 09/13/2023 with abdominal pain found to have mesenteric ischemia, postoperative day 2 status post exploratory laparotomy, SMA and aorta mesenteric thrombectomy with patch angioplasty. CT scan reviewed,
some bowel wall thickening but no pneumatosis or portal venous gas. Vessels/graft are open. Leukocytosis stable, lactate normalized. Clinically improving.
No acute general surgery intervention warranted at this time.
Continue to trend labs.
Continue heparin drip
General surgery will continue to follow with serial abdominal exams.
Time Spent
Total Time Spent with Patient (in minutes): 20
Subjective Data
-
Date of Service: September 15, 2023
Interval Events:
No acute events overnight. Slept okay. Pain improved. Denies Nausea/Vomiting, -bowel function.
Objective Data
-
Intake and Output
09/14/23//
06:59 06:59 06:59
Intake Total 4700 / 4855 4253.7 / 4408.7 345 / 345
Output Total 1020 / 1065 1905 / 1970 130 / 130
Balance 3680 / 3790 2348.7 / 2438.7 215 / 215
Intake:
Oral fluids 0 / 0
IV fluids (Total) 4570 / 4725 3953.7 / 4108.7 315 / 315
D5/0.45%NaCl 1,000 ml @ 150 mls 150 / 300 300 / 300
/hr IV .Q6H40M [facility]ATER[facility] Rx#:[id number]
Heparin 120 / 125 120 / 125 15 / 15
LR 4000 / 4150 600 / 600
Nss 1,000 ml @ 150 mls/hr IV . 450 / 450
Q6H40M KATERINE Rx#:[id number]
Nss 1,000 ml @ 150 mls/hr IV . 2850 / 2850
Q6H40M [facility] Rx#:[id number]
MEDICARE SALES EXECUTIVE dilaudid 3.7 / 3.7
calcium 230 / 230
IV piggybacks 100 / 100 150 / 150
Amount instilled into GI Tube ( 30 / 30 150 / 150 30 / 30
Total)
Thompson Sump 30 / 30 150 / 150 30 / 30
Output:
Gastrointestinal tube output ( 300 / 300 800 / 800
Total)
Thompson Sump 300 / 300 800 / 800
Urine, Chavez 720 / 765 1105 / 1170 130 / 130
Vital Signs
Temp Pulse Resp BP Pulse Ox
98.7 F 111 21 128/69 94
09/15/23 07:24 09/15/23 08:00 09/15/23 08:00 09/15/23 08:00 09/15/23 08:00
Calcium 7.5 mg/dl (8.4-10.2) L 09/15/23 03:48
Calcium Cancelled 09/15/23 03:48
Phosphorus 5.4 mg/dl (2.5-4.5) H 09/13/23 03:17
Magnesium 1.8 mg/dl (1.6-2.3) 09/13/23 03:17
Total Bilirubin 1.0 mg/dl (0.2-1.3) 09/15/23 03:48
Direct Bilirubin 0.4 mg/dl (0.0-0.4) 09/13/23 03:17
AST 711 U/L (17-59) H* 09/15/23 03:48
ALT 843 U/L (0-50) H* 09/15/23 03:48
Alkaline Phosphatase 73 U/L (38-126) 09/15/23 03:48
Total Protein 3.7 g/dl (6.3-8.2) L 09/15/23 03:48
Albumin 1.9 g/dl (3.5-5.0) L 09/15/23 03:48
Physical Exam
-
GENERAL/NEURO: Awake, Alert, no distress, NG tube with bilious output.
CHEST: Unlabored breathing on RA
ABDOMEN: Soft, mildly distended, minimally tender
--- NOTE | 2023-09-15 10:06 | W.PN.HOSP.TC ---
Today's Communication/Plan
-
Continue IV heparin.
Continue with NG tube.
Continue with IV fluids
Follow H&H.
Assessment / Plan
Assessment / Plan
Assessment:
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
- s/p Exploratory laparotomy, lysis of adhesions, aorto-mesenteric bypass Tona thrombectomy, mesenteric arteriogram, patch angioplasty of aorto-mesenteric bypass
- lactic acidosis normalized now
- CT-A 09/13 showing patient bypass, concern for bowel ischemia
- Colorectal following
- Vascular following
- continue IV Heparin - requires intensive monitoring
- Dilaudid WATER RESOURCES TECHNICAL OFFICER for pain control
- continue Zosyn day 4 . follow cultures
Hyperglycemia
No hx of DM
HbA1C 5.8
-DC sliding scale insulin
Tobacco abuse- remains actively smoking
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
CAD s/p prior hx of NSTEMI -asymptomatic without chest pain. On aspirin at home. Currently on IV heparin.
Hx of DVT status post apixaban 03/2021 post left knee surgery
Chronic back pain-recent steroid taper
Anemia-slow drop in H&H without any external bleeding noted. Continue to follow while in IV heparin.
DVT ppx: IV Heparin
Code: Full
Total time spent on today's encounter was 52 minutes which included time spent in counseling the patient regarding diagnosis and treatment plan as listed above, goals of care, and symptom management. Case was discussed with nursing staff, All labs
and imaging personally reviewed by me. Remainder the time spent in detailed review of previous records, lab data, imaging, and other medical provider documentation.
Anticipated Discharge: > 48 hours
Subjective/Interval History
-
Date of Service: September 15, 2023
Improving abdominal pain. No nausea.
Breathing little heavy but no worse. Oxygenating well on nasal cannula.
No chest pain.
Objective Data
-
Labs:
Laboratory Results
09/14/23 09/15/23 09/15/23
21:31 03:48 03:48
WBC 25.9 H Cancelled
Hgb 10.5 L
Hct
Plt Count
APTT
Sodium 135
Potassium 4.2
Chloride 112 H
Carbon Dioxide 23
BUN 29 H
Creatinine 1.2
Glucose 81
Calcium 6.8 L*
Total Bilirubin
AST
ALT
Alkaline Phosphatase
09/15/23 09/15/23 09/15/23
03:48 03:48 03:48
WBC
Hgb Cancelled
Hct 30.9 L Cancelled
Plt Count 131 D Cancelled
APTT 44.9 H
Sodium 136
Potassium
Chloride
Carbon Dioxide
BUN
Creatinine
Glucose
Calcium
Total Bilirubin
AST
ALT
Alkaline Phosphatase
09/15/23 09/15/23 09/15/23
03:48 03:48 03:48
WBC
Hgb
Hct
Plt Count
APTT
Sodium Cancelled
Potassium 4.1 Cancelled
Chloride 111 H Cancelled
Carbon Dioxide 25
BUN
Creatinine
Glucose
Calcium
Total Bilirubin
AST
ALT
Alkaline Phosphatase
09/15/23 09/15/23 09/15/23
03:48 03:48 03:48
WBC
Hgb
Hct
Plt Count
APTT
Sodium
Potassium
Chloride
Carbon Dioxide Cancelled
BUN 28 H Cancelled
Creatinine 1.1 Cancelled
Glucose 66 L
Calcium
Total Bilirubin
AST
ALT
Alkaline Phosphatase
09/15/23 09/15/23 09/15/23
03:48 03:48 10:00
WBC Pending
Hgb Pending
Hct Pending
Plt Count Pending
APTT
Sodium Pending
Potassium Pending
Chloride Pending
Carbon Dioxide Pending
BUN Pending
Creatinine Pending
Glucose Cancelled Pending
Calcium 7.5 L Cancelled Pending
Total Bilirubin 1.0
AST 711 H*
ALT 843 H*
Alkaline Phosphatase 73
09/15/23 09/15/23 09/15/23
12:00 14:00 18:00
WBC
Hgb
Hct
Plt Count
APTT Pending
Sodium
Potassium
Chloride
Carbon Dioxide
BUN
Creatinine
Glucose
Calcium
Total Bilirubin Pending Pending
AST Pending Pending
ALT Pending Pending
Alkaline Phosphatase Pending Pending
Vital Signs:
Vital Signs
Temp Pulse Resp BP Pulse Ox
98.7 F 111 21 128/69 94
09/15/23 07:24 09/15/23 08:00 09/15/23 08:00 09/15/23 08:00 09/15/23 08:00
I&O
09/14/23 09/15/23 09/16/23
06:59 06:59 06:59
Intake Total 4700 / 4855 4253.7 / 4408.7 345 / 345
Output Total 1020 / 1065 1905 / 1970 130 / 130
Balance 3680 / 3790 2348.7 / 2438.7 215 / 215
Review of Systems
-
Constitutional: Denies Fever
EENT: Denies Sore Throat
Respiratory: Denies Cough
Neuro: Denies Dizzy
Physical Exam
-
General: No Apparent Distress
HEENT: Moist Mucous Membranes
Respiratory: Clear to Auscultation (anterior examination)
Cardiac: Regular Rhythm and S1/S2
GI: Soft and Other (NG in place); Negative Normal Bowel Sounds
Neuro: AO x 3
Psych: Calm; Negative Confused
Data Reviewed
-
Labs: Labs Reviewed by me
[2023-09-15 11:07] LABS: Hematocrit 26.6 % (39.0-52.0); Hemoglobin 9.2 g/dL (13.0-18.0); Mean Corp Hgb Conc. 34.6 g/dL (33.0-37.0); Mean Corpuscular Hgb 30.7 pg (27.0-31.0); Mean Corpuscular Volume 88.7 fL (80.0-94.0); Red Cell Dist. Width 14.8 % (11.5-14.5); White Blood Cell Count 22.5 10^3/uL (4.8-10.8)
--- NOTE | 2023-09-15 11:45 | PTCARENOTE ---
No major changes since am assessment. PT/OT consulted. Occasional ice chips. VS documented. Call antonio within reach. Will continue to monitor.
--- NOTE | 2023-09-15 14:05 | PTCARENOTE ---
Labs sent repeatedly due to hemolyzation. Waiting for results.
[2023-09-15 14:20] LABS: ALT (SGPT) 653 U/L (0-50); AST (SGOT) 457 U/L (17-59); Alkaline Phosphatase 77 U/L (38-126); Blood Urea Nitrogen 24 mg/dl (9-20); Calcium 7.5 mg/dl (8.4-10.2); Carbon Dioxide 27 mmol/L (22-30); Chloride 109 mmol/L (98-107); Direct Bilirubin 0.5 mg/dl (0.0-0.4); Estimated Creatinine Clearance 105 ml/min; Glucose 116 mg/dl (70-99); Potassium 4.1 mmol/L (3.5-5.1); Sodium 133 mmol/L (135-145); Total Bilirubin 1.1 mg/dl (0.2-1.3); Total Protein 4.1 g/dl (6.3-8.2); eGFR > 60.00
[2023-09-15 14:42] LABS: APTT 51.3 Sec (23.4-35.0)
--- NOTE | 2023-09-15 14:45 | PTCARENOTE ---
Pt OOB in chair for approximately 1.5 hrs. Assist x 2 to get in and out of bed. Encouraged use of IS and deep breathing. Call antonio and HEALTHCARE SCIENCE SPECIALIST button within reach.
--- NOTE | 2023-09-15 16:00 | PTCARENOTE ---
Pt remains on 2L N/C...sats 97%. Encouraged coughing, deep breathing, and use of IS. IS 500mls max noted. No major changes in physical assessment. Remains on IVF's and heparin gtt. For repeat PTT at 2100. Call antonio within reach, as well as,
HORSE STUD MANAGER button. Will continue to monitor.
[2023-09-15 18:21] LABS: Glucose - Point of Care 101 mg/dl (70-99)
--- NOTE | 2023-09-15 20:00 | PTCARENOTE ---
Rec'd pt resting in bed, on SURGICAL SERVICES ASSISTANT dilaudid- no bolus, able to rec 0.2 mg q10min, pt oriented, assists w/ turning, ST, bp stable, distal pulses via doppler, skin warm/dry, O2 2 liters nc, lungs decr throughout, enc to take deep breaths & use IS-
reaches 750ml, sat 96, + GARCIA, + bowel sounds, inc loose brown stool, angelina care given, abd tender to palpation, no n/v, alexandro ice chips, R salem to low cont wall suction draining brown liquid, irrigated q4hr w/ 30 tap h20, garcía draining jovani urine w/
sediment, hep gtt at 1200 units/hr
[2023-09-15 21:16] LABS: APTT 95.6 Sec (23.4-35.0)
[2023-09-15 23:50] LABS: Glucose - Point of Care 105 mg/dl (70-99)
--- NOTE | 2023-09-15 23:59 | PTCARENOTE ---
sys reviewed, sleeping, easily arousable, chg bath done, linens changed
[2023-09-16] VITALS (22 sets, daily range): BP systolic 104–146; BP diastolic 67–91; PULSE 112; O2SAT 92; BMI 24.0
[2023-09-16] MEDS: HEPARIN 25000 UNITS/250 ML IV ×2 (00:25→23:06)
--- NOTE | 2023-09-16 03:47 | PTCARENOTE ---
sys reviewed, changes noted
[2023-09-16 03:49] LABS: APTT 96.1 Sec (23.4-35.0)
[2023-09-16 04:03] LABS: Hematocrit 29.9 % (39.0-52.0); Hemoglobin 10.2 g/dL (13.0-18.0); Mean Corp Hgb Conc. 34.1 g/dL (33.0-37.0); Mean Corpuscular Hgb 29.8 pg (27.0-31.0); Mean Corpuscular Volume 87.4 fL (80.0-94.0); Mean Platelet Volume 12.2 fL (7.4-10.4); Platelet Count 111 10^3/uL (130-400); Red Blood Cell Count 3.42 10^6/uL (4.70-6.10); Red Cell Dist. Width 14.3 % (11.5-14.5); White Blood Cell Count 22.1 10^3/uL (4.8-10.8)
[2023-09-16 04:32] LABS: ALT (SGPT) 467 U/L (0-50); AST (SGOT) 255 U/L (17-59); Albumin 1.9 g/dl (3.5-5.0); Alkaline Phosphatase 104 U/L (38-126); Blood Urea Nitrogen 21 mg/dl (9-20); Calcium 7.2 mg/dl (8.4-10.2); Carbon Dioxide 30 mmol/L (22-30); Chloride 107 mmol/L (98-107); Estimated Creatinine Clearance 105 ml/min; Glucose 105 mg/dl (70-99); Potassium 4.1 mmol/L (3.5-5.1); Sodium 134 mmol/L (135-145); Total Bilirubin 1.3 mg/dl (0.2-1.3); eGFR > 60.00
[2023-09-16 05:40] LABS: Absolute Neutrophils -Man Diff 18.3 10^3/uL (1.4-6.5); Band Neutrophils 14 % (0-3); Eosinophils 1 % (0-6); Lymphocytes 10 % (20-51); Metamyelocytes 3 % (-); Monocytes 3 % (2-9); Normal RBC Morphology Yes; Platelets Checked Yes; Segmented Neutrophils 69 % (42-75); Total Cells Counted 100
[2023-09-16] MEDS: ZOSYN 50 IV ×4 (06:01→23:05)
--- NOTE | 2023-09-16 07:39 | W.PN.INTV ---
Today's Communication / Plan
Recommendations
Heparin drip per vascular surgery
Continue Zosyn
Analgesia per surgery
Incentive spirometry
Increase activity
Transfer out of ICU-call pulmonary if respiratory issues arise
Assessment
-
58-year-old man with past medical history noted, admitted to the emergency room with abdominal pain. Found to have bowel ischemia due to occlusion of prior aortic mesenteric bypass. Apparently patient stopped taking Plavix and statin since January
2022. Only on aspirin, emergently taken to the operating room. Transferred to the critical care unit, we were consulted for critical care management.
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
Status post:Exploratory laparotomy, lysis of adhesions, aortomesenteric bypass nick thrombectomy, mesenteric arteriogram, patch angioplasty of aortomesenteric bypass
Leukocytosis due to mesenteric ischemia
Hyperglycemia
Lactic acidosis
Conditions present prior admission:
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
graft bypass into the celiac and SMA vessels.
Tobacco abuse
PFT's 06-19-21 with moderate airflow obstruction with some reversibility postbronchodilator on spirometry.-Not on bronchodilators
Moderate COPD/emphysema-not seen by pulmonary in the outpatient office for
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
History of left gastric anemic DVT status post apixaban 03/2021 post left knee surgery
History lumbar vasectomy
Chronic back pain-recent steroid taper
Plan
Remains hemodynamically stable-off pressors
Wean supplemental oxygen
Continue aspiration precautions
Incentive spirometry encouraged
Nebulizers if needed-currently not bronchospastic
Postop day 3-exploratory laparotomy, lysis of adhesions, aortomesenteric bypass nick thrombectomy, mesenteric arteriogram, patch angioplasty of aortomesenteric bypass
General surgery following-correspondence reviewed
Vascular surgery following-correspondence reviewed
Antibiotics per surgery-on Zosyn
Pain management-on hydromorphone as needed-appears to be controlled
Neurovascular checks continue
Heparin drip continues
Decrease IV fluids
Norepinephrine weaned
Monitor leukocytosis
Follow renal function
Replace electrolytes
Monitor hemoglobin
Transfuse as needed
Hypoglycemia noted
Dextrose added to lactated ringer's-reviewed with pharmacy
Monitor liver functions-still significantly elevated
Smoking cessation encouraged
DVT prophylaxis-on heparin drip
Nutrition per surgery and vascular surgery
If able to be weaned off pressors and hemodynamics improve then transfer out of ICU-call pulmonary if respiratory issues arise
Reviewed the patient's pertinent medical records including radiographs, microbiology, laboratory evaluations, and discussion with primary team, consultants, pharmacy, nutrition, physical therapy, case management, charge nurse, critical care
nursing, and respiratory therapy.
Subjective Dataa
Subjective Data
Date of Service:
Date of Service: September 16, 2023
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
Subjective:
No complaints of shortness of breath, on room air, no chest congestion, productive cough, pain controlled
Review of Systems
General: Other (Per HPI)
Objective Data
Data Reviewed
Vital Signs / I&O / Oxygen:
Vital Signs
Temp Pulse Resp BP Pulse Ox
98.7 F 109 19 146/82 92
09/16/23 07:23 09/16/23 06:02 09/16/23 06:08 09/16/23 06:02 09/16/23 06:00
Intake and Output
09/15/23 09/16/23 09/17/23
06:59 06:59 06:59
Intake Total 4253.7 / 4408.7 2797.8 / 2797.8
Output Total 1905 / 1970 1485 / 1485
Balance 2348.7 / 2438.7 1312.8 / 1312.8
SaO2 92
Nasal Cannula flow liters per 2
minute
Physical Exam
General: Respiratory Distress (n) and Pain (Abdominal-controlled)
HEENT: Normocephalic, Anicteric and Moist Mucous Membranes
Cardiovascular: Regular Rhythm
Respiratory: Crackles (Rare basilar), Rhonchi (n), Non-Labored Respirations, Accessory Resp Muscle Use (n) and Stridor (n)
GI: Soft, Distended, Other ( incision is intact without hematoma) and Other (Decreased bowel sounds)
Neurology: Awake, Alert and No Motor Deficits
Skin: Warm, Good Color, Cyanosis (n) and Jaundice (n)
Labs/Micro/Reports
Lab Data
09/16/23 03:56
09/16/23 03:56
Laboratory Results
09/15/23 09/15/23 09/15/23
13:34 14:00 20:56
APTT Cancelled 51.3 H 95.6 H
09/16/23
03:25
APTT 96.1 H
Microbiology
09/12/23 18:05 Blood/Venous Blood Culture - Preliminary
No Growth in 72 hours- Final report to follow
--- NOTE | 2023-09-16 08:45 | W.PN.HOSP.TC ---
Addendum entered and electronically signed by Abraham Jose MD 09/16/23 08:55:
Abnormal LFTs with transaminitis elevation noted-suspect ischemic-improving.
Original Note:
Today's Communication/Plan
-
Continue with IV heparin
Continue with INCIDENT ENGINEER pump per surgery
Continue antibiotics
Follow leukocytosis and H&H
Transfer to postop surgical unit.
Assessment / Plan
Assessment / Plan
Assessment:
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
- s/p Exploratory laparotomy, lysis of adhesions, aorto-mesenteric bypass Tona thrombectomy, mesenteric arteriogram, patch angioplasty of aorto-mesenteric bypass
- lactic acidosis normalized
- CT-A 09/13 showing patient bypass, concern for bowel ischemia
- Colorectal following
- Vascular following
- continue IV Heparin - requires intensive monitoring
- Dilaudid INCIDENT ENGINEER for pain control
- continue Zosyn day 5 . Follow leukocytosis.
- BCX neg
Hyperglycemia
No hx of DM
HbA1C 5.8
Tobacco abuse- remains actively smoking
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
CAD s/p prior hx of NSTEMI -asymptomatic without chest pain. On aspirin at home. Currently on IV heparin.
Hx of DVT status post apixaban 03/2021 post left knee surgery
Chronic back pain-recent steroid taper
Anemia-slow drop in H&H without any external bleeding noted.HH stable in last 24 hr. Continue to follow while in IV heparin.
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
DVT ppx: IV Heparin
Code: Full
Will tx to 2S on tele
Total time spent on today's encounter was 52 minutes which included time spent in counseling the patient regarding diagnosis and treatment plan as listed above, goals of care, and symptom management. Case was discussed with nursing staff, All labs
and imaging personally reviewed by me. Remainder the time spent in detailed review of previous records, lab data, imaging, and other medical provider documentation.
Anticipated Discharge: > 48 hours
Subjective/Interval History
-
Date of Service: September 16, 2023
Feeling improved from abdominal pain standpoint. Still on INCIDENT ENGINEER pump.
No nausea vomiting. NG tube in place.
Denies any shortness of breath or chest pain.
Objective Data
-
Labs:
Laboratory Results
09/15/23 09/16/23 09/16/23
20:56 03:25 03:56
WBC 22.1 H
Hgb 10.2 L
Hct 29.9 L
Plt Count 111 L
APTT 95.6 H 96.1 H
Sodium 134 L
Potassium 4.1
Chloride 107
Carbon Dioxide 30
BUN 21 H
Creatinine 0.8
Glucose 105 H
Calcium 7.2 L
Total Bilirubin 1.3
AST 255 H
ALT 467 H
Alkaline Phosphatase 104
Vital Signs:
Vital Signs
Temp Pulse Resp BP Pulse Ox
98.7 F 99 23 135/82 92
09/16/23 07:23 09/16/23 07:00 09/16/23 08:33 09/16/23 07:00 09/16/23 06:00
I&O
09/15/23 09/16/23 09/17/23
06:59 06:59 06:59
Intake Total 4253.7 / 4408.7 2797.8 / 2889.8 185 / 185
Output Total 1904 / 1970 1485 / 1485 85 / 85
Balance 2348.7 / 2438.7 1312.8 / 1404.8 100 / 100
Review of Systems
-
Constitutional: Denies Fever
EENT: Denies Sore Throat
Respiratory: Denies Cough
Genitourinary: Denies Dysuria
Neuro: Denies Dizzy
Physical Exam
-
General: No Apparent Distress
HEENT: Moist Mucous Membranes
Respiratory: Clear to Auscultation (anteriorly)
Cardiac: Regular Rhythm, S1/S2 and Tachycardic
GI: Soft, Nondistended and Tender (gen discomfort ,no rebound); Negative Normal Bowel Sounds
Neuro: AO x 3
Psych: Calm
Data Reviewed
-
Labs: Labs Reviewed by me
--- NOTE | 2023-09-16 09:36 | W.PN.VS ---
Addendum entered and electronically signed by Ayaz Chavez III, MD 09/16/23 13:39:
This patient was seen and examined with AVIVA Ramirez. I agree with the history and physical exam as well as the assessment and plan. I have the following additions:
Will consult hematology for hypercoagulable workup given unusual circumstances surrounding complete bypass thrombosis
Signed:
Ayaz Chavez III, MD
[facility]
[phone] (cell)
Original Note:
Today's Communication / Plan
-
Patient seen and examined at bedside with Dr. Ayaz Chavez III, below plan reviewed with attending.
Assessment/Plan
-
POD 3 Exploratory laparotomy, lysis of adhesions, aortomesenteric bypass nick thrombectomy, mesenteric arteriogram, patch angioplasty of aortomesenteric bypass
Plan:
-Continue heparin infusion with therapeutic PTT
-Given continued increased leukocytosis, would favor continuing Zosyn
-Continue AUTOCAD as he is n.p.o. with NG tube
-Continue NG tube, n.p.o., as he reports no return of bowel function
-Will discontinue Chavez catheter today
Subjective Data
-
Date of Service: September 16, 2023
Patient seen and examined at bedside, denies flatus reports continued mild distention. Denies nausea, vomiting, fever, and chills. Reports well-managed postoperative pain.
Objective Data
-
Vital Signs
Temp Pulse Resp BP Pulse Ox
98.7 F 99 23 135/82 92
09/16/23 07:23 09/16/23 07:00 09/16/23 08:33 09/16/23 07:00 09/16/23 06:00
Intake and Output
09/15/23 09/16/23 09/17/23
06:59 06:59 06:59
Intake Total 4253.7 / 4408.7 2797.8 / 2889.8 185 / 185
Output Total 1905 / 1970 1485 / 1485 85 / 85
Balance 2348.7 / 2438.7 1312.8 / 1404.8 100 / 100
Intake:
IV fluids (Total) 3953.7 / 4108.7 2467.8 / 2559.8 185 / 185
D5/0.45%NaCl 1,000 ml @ 80 mls/ 150 / 300 2200 / 2280 160 / 160
hr IV .[id number] KATERINE Rx#:[id number]
Heparin 120 / 125 265 / 277
LR 600 / 600
Nss 1,000 ml @ 150 mls/hr IV . 2850 / 2850
Q6H40M KATERINE Rx#:[id number]
AUTOCAD dilaudid 3.7 / 3.7 2.8 / 2.8
calcium 230 / 230
IV piggybacks 150 / 150 150 / 150
Amount instilled into GI Tube ( 150 / 150 180 / 180
Total)
[place] Sump 150 / 150 180 / 180
Output:
Gastrointestinal tube output ( 800 / 800 500 / 500
Total)
[place] Sump 800 / 800 500 / 500
Urine, Chavez 1105 / 1170 985 / 985 85 / 85
Lab Results
09/16/23 03:56
09/16/23 03:56
Calcium 7.2 mg/dl (8.4-10.2) L 09/16/23 03:56
Phosphorus 5.4 mg/dl (2.5-4.5) H 09/13/23 03:17
Magnesium 1.8 mg/dl (1.6-2.3) 09/13/23 03:17
Total Bilirubin 1.3 mg/dl (0.2-1.3) 09/16/23 03:56
Direct Bilirubin Cancelled 09/15/23 18:00
AST 255 U/L (17-59) H 09/16/23 03:56
ALT 467 U/L (0-50) H 09/16/23 03:56
Alkaline Phosphatase 104 U/L (38-126) 09/16/23 03:56
Total Protein 4.0 g/dl (6.3-8.2) L 09/16/23 03:56
Albumin 1.9 g/dl (3.5-5.0) L 09/16/23 03:56
Physical Exam
-
AAOx3
No tachypnea on 2 L
Tachycardia in the 100s
Diffusely tender, mild distension, soft
Abdominal aquacel dressing changed, christin CDI and well-approximated
2+ fem pulses
NGT 180
--- NOTE | 2023-09-16 11:48 | CON.ONC ---
Addendum entered and electronically signed by Samanta Saunders MD 09/16/23 14:10:
Patient seen and examined, chart reviewed and case d/w AVIVA, agree w/ her A&P as below.
We've been asked to see this patient for thrombophilia evaluation.
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 On 09/12/23, he
underwent ex lap, OSKAR, thrombectomy, aortomesenteric bypass thrombectomy, mesenteric arteriogram, and patch angioplasty of bypass. Heparin was initiated.
PMH also noted for DVT after orthopedic surgery in 2020.
CBC noted for leukocytosis w/ left shit, mild anemia and mild thrombocytopenia.
Family h/o VTE noted.
He has risk factors for thrombosis, including tobacco abuse and hyperlipidemia (was not taking statins)
Continue heparin, would transition to DOAC when able
Because of history, would continue DOAC indefinitely
Will check APL panel, though low suspicious for antiphospholipid syndrome (if positive, would need to consider warfarin)
Full thrombophilia work-up would not be accurate in the setting of heparin, recent thrombosis, recent surgery. Will arrange outpatient heme f/u to consider add'l testing.
Original Note:
Impression
Impression
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
s/p ex lap, OSKAR, aorto-mesenteric bypass thrombectomy, mesenteric arteriogram, patch angioplasty of aorto-mesenteric bypass 09/13/23
Current smoker
Leukocytosis
Neutrophilia
Mild thrombocytopenia
Hx DVT s/p orthopedic surgery after anticoagulation discontinued (2020)
Family hx of VTE
Plan
Plan
POD#3 Exploratory laparotomy, lysis of adhesions, aorto-mesenteric bypass Tona thrombectomy, mesenteric arteriogram, patch angioplasty of aorto-mesenteric bypass. EBL 500
09/15 WBC 22.1, Hgb 10.2, PLT 111
Monitor CBC w/ diff daily
Transfuse as needed to maintain Hgb >7, PLT >20 (or >50 with active bleeding)
Supportive care
Continue heparin gtt, monitor PTT
Antiphospholipid antibody panel ordered
Await APLA panel, workup can be completed outpatient.
Patient verbalizes understanding. We will follow.
Patient History
History of Present Illness
Florentino Paez is a 58 year old male with history of acute mesenteric ischemia secondary to mesenteric bypass thrombosis. He has history of aorto-mesenteric bypass in 2020. He is s/p ex lap, lysis of adhesions, thrombectomy, mesenteric
arteriogram and patch angioplasty 09/13/23. Patient is an active smoker. We are being consulted for hypercoagulable workup. He is maintained on heparin gtt at this time. He reports his father had history of clots. Denies family history of bleeding
disorder to his knowledge. He is drowsy during conversation.
Past-Medical/Surgical History
Tobacco use (active smoker)
COPD/emphysema
CAD, hx NSTEMI
Chronic back pain
Hx graft bypass into celiac and SMA vessels
Hx Aorto-mesenteric bypass 05/2021
Hx DVT post left knee surgery after discontinuation of Apixaban (2020)
Patient Medication
Medication Instructions Recorded Confirmed Last Taken Type
aspirin 81 mg tablet,delayed 81 mg PO DAILY Blood Clot 09/12/23 09/12/23 Unknown History
release Prevention/Tx
ibuprofen 200 mg capsule 800 mg PO TID PRN mild pain/fever 09/12/23 09/12/23 Unknown History
melatonin 5 mg tablet 20 mg PO HS Sleep 09/12/23 09/12/23 Unknown History
methylprednisolone 4 mg tablets in 4 mg PO UD Anti-Inflammatory 09/12/23 09/12/23 09/11/23 History
a dose pack 24 mg
Active Medications
Generic Name Dose Route Start Last Admin
Trade Name Freq PRN Reason Stop Dose Admin
Acetaminophen 650 mg 09/13/23 00:26
Acetaminophen 325 Mg Tablet PO 10/11/23 00:25
Q4HPRN PRN
mild pain or temp >/= 100.4F
Bisacodyl 10 mg 09/13/23 00:26
Bisacodyl 10 Mg Rectal Suppository RECTAL 10/11/23 00:25
DAILYPRN PRN
constipation
Hydromorphone HCl 0.5 mg 09/14/23 10:32 09/14/23 17:44
Hydromorphone 0.5 Mg/0.5 Ml Syringe IV 09/28/23 10:31 0.5 mg
Q1HPRN PRN Administration
BREAKTHROUGH PAIN
Hydromorphone HCl 30 mg in 30 mls @ 0 mls/hr 09/13/23 07:30 09/14/23 20:52
Dilaudid Manager Integrated IV 30 mls
PER PROTOCOL KATERINE Administration
Protocol
Per Protocol
Piperacillin Sod/Tazobactam Sod 3.375 gram in 50 mls @ 100 mls/hr 09/15/23 06:00 09/16/23 06:01
Zosyn IV 50 mls
Q6H KATERINE Administration
Dextrose/Sodium Chloride 1,000 mls @ 80 mls/hr 09/15/23 05:00 09/15/23 23:33
D5/0.45%Nacl IV 1,000 mls
.[id number] KATERINE Administration
Heparin Sodium 25,000 units in 250 mls @ 0 mls/hr 09/15/23 07:45 09/16/23 00:25
Heparin 99875 Units/250 Ml IV 250 mls
PER PROTOCOL KATERINE Administration
Protocol
Per Protocol
Naloxone HCl 0.04 mg 09/13/23 07:18
Naloxone (0.4 Mg/Ml) 1 Ml Injection IV 10/11/23 07:17
Q2MPRN PRN
RR </= 10/min / Pasero scale=4
Ondansetron HCl 4 mg 09/13/23 00:43 09/14/23 02:25
Ondansetron 4 Mg/2 Ml Vial IV 10/11/23 00:42 4 mg
Q6HPRN PRN Administration
NAUSEA/VOMITING
Sodium Chloride 0 flush 09/12/23 22:00 09/14/23 18:40
Sodium Chloride 0.9% (Flush) Syringe IV 10/10/23 21:59 1 flush
PER PROTOCOL KATERINE Administration
Sodium Chloride 0.9 ml 09/13/23 07:18
Sodium Chloride 0.9% (Preservative Free) 10 Ml Vial IV 10/11/23 07:17
Q2MPRN PRN
naloxone dilution
Review of Systems
-
Unable to obtain full review of systems at this time due to: Other (drowsy)
History Source: Patient, Coordinated Provider and Records
Constitutional: Reports No Symptoms
EENT: Reports No Symptoms
Respiratory: Reports No Symptoms
Cardiac: Reports No Symptoms
GI: Reports No Symptoms
Breast: Reports N/A
: Reports No Symptoms
Musculoskeletal: Reports No Symptoms
Skin: Reports No Symptoms
Neuro: Reports No Symptoms
Endocrine: Reports No Symptoms
Hematologic/Lymphatic: Reports No Symptoms
Allergy / Immunology: Reports No Symptoms
Psych: Reports No Symptoms
Physical Exam
-
Patient OOB to the chair, getting back in bed x1 assist with nursing. He is drowsy during conversation. Denies acute pain or nausea/vomiting.
General: Well Developed, Well Nourished, No Apparent Distress and Comfortable
HEENT: Negative Jaundice
Cardiology: Normal Sinus Rhythm (tachycardia)
Pulmonary: Clear (diminished/shallow) and Other (room air)
GI: Other (NGT right nare, abd softly distended, aquacell dressing CDI, hypoactive bowel sounds)
Genito-Urinary: Turbid Urine, Bloody Urine and Chavez
Musculoskeletal: No Edema
Extremities: Pulses Present
Neurology: Non Focal
Skin: Warm and Dry
Psych: Calm and Other (drowsy, flat)
Labs
Lab Results
WBC 22.1 10^3/uL (4.8-10.8) H 09/16/23 03:56
RBC 3.42 10^6/uL (4.70-6.10) L 03 03:56
Hgb 10.2 g/dL (13.0-18.0) L 09/16/23 03:56
Hct 29.9 % (39.0-52.0) L 09/16/23 03:56
MCV 87.4 fL (80.0-94.0) 09/16/23 03:56
MCH 29.8 pg (27.0-31.0) 09/16/23 03:56
MCHC 34.1 g/dL (33.0-37.0) 09/16/23 03:56
RDW 14.3 % (11.5-14.5) 09/16/23 03:56
Plt Count 111 10^3/uL (130-400) L 09/16/23 03:56
MPV 12.2 fL (7.4-10.4) H 09/16/23 03:56
Abs Immat Gran (auto) 0.1 10^3/uL (0-0.05) H 09/14/23 03:04
Absolute Neuts (auto) 17.4 10^3/uL (1.4-6.5) H 09/14/23 03:04
Absolute Lymphs (auto) 1.3 10^3/uL (1.2-3.4) 09/14/23 03:04
Absolute Monos (auto) 1.5 10^3/uL (0.1-0.6) H 09/14/23 03:04
Absolute Eos (auto) 0.4 10^3/uL (0-0.7) 09/14/23 03:04
Absolute Basos (auto) 0.1 10^3/uL (0-0.2) 09/14/23 03:04
Immature Gran % 0.5 % (0-0.5) 09/14/23 03:04
Neutrophils % 83.6 % (42.2-75.2) H 09/14/23 03:04
Lymphocytes % 6.4 % (20.5-51.1) L 09/14/23 03:04
Monocytes % 7.4 % (1.7-9.3) 09/14/23 03:04
Eosinophils % 1.7 % (0-6) 09/14/23 03:04
Basophils % 0.4 % (0-2) 09/14/23 03:04
Creatinine 0.8 mg/dL (0.7-1.3) 09/16/23 03:56
Vital Signs
Vital Signs
Temp Pulse Resp BP Pulse Ox
98.1 F 99 23 135/82 92
09/16/23 11:04 09/16/23 07:00 09/16/23 08:33 09/16/23 07:00 09/16/23 06:00
[2023-09-16] MEDS: D5/0.45%NACL 1000 IV (11:54)
--- NOTE | 2023-09-16 13:22 | CM ---
CM following re: discharge planning.
Discussed in rounds, reviewed pt's chart, met with pt. Pt is POD 3 Exploratory laparotomy, lysis of adhesions, aortomesenteric bypass nick thrombectomy, mesenteric arteriogram, patch angioplasty of aortomesenteric bypass.
Vascular surgery following, continue NJ tube.
PT and OT evaluations noted - home PT vs SNF recommended. pt is aware, expressed his agreement and he stated he lives alone and he needs to be independent in order to return back home. Pt reports his ex- lives 20 minutes away, she can help but
not much because she takes care of 2 young children and one of them with special needs.
A list of SNFs provided to pt for a review.
Per PT/OT they will reevaluate pt's progress for final recommendations.
D/C plan: most likely SNF. pt has a list of SNFs
CM will follow with discharge plan updates as hospitalization progresses
--- NOTE | 2023-09-16 15:29 | PN.CDI ---
CDI
- -
CDI:
Physician Documentation Request
Admit Date: 09/12/23 20:39
Dear Doctor Damon,
Please review the following and provide your response in the progress notes.
Clinical Indicators:
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
lactic acidosis...'
Documented per progress note 09/15,' Abnormal LFTs with transaminitis elevation noted-suspect ischemic-improving....'
Trended LFTs are below/Did get 7 Liters of IVFs per MAR so far
09/15/23 09/15/23 09/15/23
03:48 03:48 13:50
AST 711 H* 457 H
ALT 843 H*
09/15/23 09/16/23 09/16/23
13:50 03:56 03:56
AST 255 H
ALT 653 H* 467 H
Based on the above, could you clarify in the progress notes, the appropriate diagnosis, if significant, that supports the above abnormalities and additional evaluation, monitoring and/or treatment rendered:
Shock liver
Acute Hepatic Failure
Ischemia only
Other
Use of terms such as suspected, likely, concern for, or probable (associated with a specific diagnosis that is being evaluated, monitored, or treated as if it exists) are acceptable and can be coded in the inpatient setting, when documented at the
time of discharge.
Thank you,
Lavern Narayan RN
CDI Specialist
[facility]
Please use your independent medical judgment in providing your response.
--- NOTE | 2023-09-16 15:34 | PN.CDI ---
CDI
- -
CDI:
Physician Documentation Request
Admit Date: 09/12/23 20:39
Dear Doctor Damon,
Please review the following and provide your response in the progress notes.
Clinical Indicators:
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
lactic acidosis...'
Documented per update operative note 09/12, ' Estimated Blood Loss: 1L...'
Progress notes 09/14 & 09/15,' Anemia-slow drop in H&H without any external bleeding noted...'
Trended Hemoglobin/Hematocrits below /Did get 2 units PRBCs
09/12/23 09/12/23 09/14/23
18:05 18:05 11:01
Hgb 17.0 12.1 L
Hct 49.8
09/14/23 09/15/23 09/15/23
11:01 03:48 03:48
Hgb 10.5 L
Hct 35.0 L 30.9 L
09/15/23 09/15/23 09/16/23
10:46 10:46 03:56
Hgb 9.2 L 10.2 L
Hct 26.6 L
09/16/23
03:56
Hct 29.9 L
Based on the above, could you clarify, in your progress note, which of the following is the most likely type of anemia you are evaluating, monitoring and/or treating?
Acute blood loss anemia
Slow drop in H/H only
Other
Use of terms such as suspected, likely, concern for, or probable (associated with a specific diagnosis that is being evaluated, monitored, or treated as if it exists) are acceptable and can be coded in the inpatient setting, when documented at the
time of discharge.
Thank you,
Lavern Narayan RN
CDI Specialist
[facility]
Please use your independent medical judgment in providing your response.
--- NOTE | 2023-09-16 17:08 | W.PN.GS2 ---
Today's Communication / Plan
-
-- No acute general surgery intervention warranted at this time.
-- Abx: Zosyn for translocation especially given prosthetic graft
-- Continue NGT for now given bilious outputs and until more consistent ROBF, consider clamp trials tomorrow
Assessment / Plan
-
This is a 58-year-old male smoker who presented 09/13/2023 with abdominal pain found to have mesenteric ischemia, POD#3 s/p exploratory laparotomy, SMA and aorta mesenteric thrombectomy with patch angioplasty.
CT scan reviewed, some bowel wall thickening but no pneumatosis or portal venous gas. Vessels/graft are open. Leukocytosis slow trend down, lactate normalized. LFTs improving. Clinically improving.
-- No acute general surgery intervention warranted at this time.
-- Trend labs.
-- Abx: Zosyn for translocation especially given prosthetic graft
-- Continue NGT for now given bilious outputs and until more consistent ROBF, consider clamp trials tomorrow
-- Heparin drip per Vascular
-- General surgery will continue to follow with serial abdominal exams.
Subjective Data
-
Date of Service: September 16, 2023
Feels improved, less abdominal pain. No nausea or vomiting. Reports passing flatus with voids and loose nonbloody stool yesterday x1. Afebrile.
Objective Data
-
Intake and Output
09/15/23 09/16/23 09/17/23
06:59 06:59 06:59
Intake Total 4253.7 / 4408.7 2797.8 / 2889.8 696 / 696
Output Total 1905 / 1970 1485 / 1485 235 / 235
Balance 2348.7 / 2438.7 1312.8 / 1404.8 461 / 461
Intake:
IV fluids (Total) 3953.7 / 4108.7 2467.8 / 2559.8 646 / 646
D5/0.45%NaCl 1,000 ml @ 80 mls/ 150 / 300 2200 / 2280 560 / 560
hr IV .[id number] KATERINE Rx#:[id number]
Heparin 120 / 125 265 / 277 84 / 84
LR 600 / 600
Nss 1,000 ml @ 150 mls/hr IV . 2850 / 2850
Q6H40M KATERINE Rx#:[id number]
MACHINE REBUILDER dilaudid 3.7 / 3.7 2.8 / 2.8 2 / 2
calcium 230 / 230
IV piggybacks 150 / 150 150 / 150 50 / 50
Amount instilled into GI Tube ( 150 / 150 180 / 180
Total)
[place] Sump 150 / 150 180 / 180
Output:
Gastrointestinal tube output ( 800 / 800 500 / 500
Total)
[place] Sump 800 / 800 500 / 500
Urine, Chavez 1105 / 1170 985 / 985 235 / 235
Vital Signs
Temp Pulse Resp BP Pulse Ox
98.1 F 109 19 137/91 90
09/16/23 11:04 09/16/23 16:00 09/16/23 16:00 09/16/23 16:00 09/16/23 15:00
Lab Results
09/16/23 03:56
09/16/23 03:56
Calcium 7.2 mg/dl (8.4-10.2) L 09/16/23 03:56
Phosphorus 5.4 mg/dl (2.5-4.5) H 09/13/23 03:17
Magnesium 1.8 mg/dl (1.6-2.3) 09/13/23 03:17
Total Bilirubin 1.3 mg/dl (0.2-1.3) 09/16/23 03:56
Direct Bilirubin Cancelled 09/15/23 18:00
AST 255 U/L (17-59) H 09/16/23 03:56
ALT 467 U/L (0-50) H 09/16/23 03:56
Alkaline Phosphatase 104 U/L (38-126) 09/16/23 03:56
Total Protein 4.0 g/dl (6.3-8.2) L 09/16/23 03:56
Albumin 1.9 g/dl (3.5-5.0) L 09/16/23 03:56
Physical Exam
-
Gne: NAD
HEENT: bilious outputs
Abd: soft, mild tenderness and distension, non-peritoneal, midline c/d/i
--- NOTE | 2023-09-16 17:32 | PTCARENOTE ---
Medium loose BM.
NGT to continuous suction.
Chavez d/c'd. Voided in urinal.
OOB x 2 hrs.
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
--- NOTE | 2023-09-16 20:00 | PTCARENOTE ---
Resumed care of pt sitting up in bed AAOx3. Flat affect. HR in the low 100's, ST on the monitor. POX 96% on 2 LO2 NC. Lungs dec @ bases. Right nare NGT in place draining brown drainage, placement confirmed and flushed per MD order. + bowel, round
abd. Mid line abd christin intact, noted ecchymosis, ABD in place. Palpable peripheral pulses present. Knee high seq applied. Left AC int infusing D51/2 NSS @80ml/hr as well as PCD Dilaudid per MD order for pain management. Right AC int infusing
Heparin gtt @1200units/hr. Pt tolerating ice chips. NO issues to report at this time. Pt using urinal/bedpan as needed. Pt repositioned per comfort. Call antonio in reach. Will monitor.
[2023-09-16] MEDS: DILAUDID PCA 30 IV (20:30)
[2023-09-17] VITALS (9 sets, daily range): BP systolic 127–145; BP diastolic 68–88; BMI 23.8
[2023-09-17 04:54] LABS: Hemoglobin 9.2 g/dL (13.0-18.0); Mean Corp Hgb Conc. 34.1 g/dL (33.0-37.0); Mean Corpuscular Hgb 29.9 pg (27.0-31.0); Mean Corpuscular Volume 87.7 fL (80.0-94.0); Mean Platelet Volume 12.3 fL (7.4-10.4); Platelet Count 120 10^3/uL (130-400); Red Blood Cell Count 3.08 10^6/uL (4.70-6.10); Red Cell Dist. Width 14.5 % (11.5-14.5); White Blood Cell Count 16.9 10^3/uL (4.8-10.8)
[2023-09-17] MEDS: ZOSYN 50 IV ×4 (05:00→23:41)
[2023-09-17 05:10] LABS: APTT 80.1 Sec (23.4-35.0)
[2023-09-17 05:24] LABS: ALT (SGPT) 288 U/L (0-50); AST (SGOT) 151 U/L (17-59); Albumin 1.9 g/dl (3.5-5.0); Alkaline Phosphatase 118 U/L (38-126); Blood Urea Nitrogen 20 mg/dl (9-20); Calcium 6.9 mg/dl (8.4-10.2); Carbon Dioxide 31 mmol/L (22-30); Chloride 104 mmol/L (98-107); Estimated Creatinine Clearance 105 ml/min; Glucose 116 mg/dl (70-99); Potassium 3.4 mmol/L (3.5-5.1); Sodium 136 mmol/L (135-145); Total Bilirubin 1.4 mg/dl (0.2-1.3); Total Protein 3.9 g/dl (6.3-8.2); eGFR > 60.00
[2023-09-17] MEDS: KCL 270 MEQ IV (05:46)
[2023-09-17] MEDS: CALCIUM GLUCONATE 130 MG IV (05:46)
[2023-09-17] MEDS: D5/0.45%NACL 1000 IV ×2 (08:33→20:13)
--- NOTE | 2023-09-17 08:51 | W.PN.HOSP.TC ---
Today's Communication/Plan
-
CW ABX
CW IV heparin
CW Pain regimen per surgery
OOB to chair
Assessment / Plan
Assessment / Plan
Assessment:
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
- s/p Exploratory laparotomy, lysis of adhesions, aorto-mesenteric bypass Tona thrombectomy, mesenteric arteriogram, patch angioplasty of aorto-mesenteric bypass
- lactic acidosis normalized
- CT-A 09/13 showing patient bypass, concern for bowel ischemia
- Colorectal following
- Vascular following
- continue IV Heparin
- Dilaudid DUST COLLECTOR TREATER for pain control
- continue Zosyn day 6 . Follow leukocytosis-improving
- BCX neg
Hematology input about thrombophilia assessments noted - transition into DOAC once off of IV heparin and follow with her in offfice for work up.
Hyperglycemia
No hx of DM
HbA1C 5.8
Tobacco abuse- remains actively smoking
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
CAD s/p prior hx of NSTEMI -asymptomatic without chest pain. On aspirin at home. Currently on IV heparin.
Hx of DVT status post apixaban 03/2021 post left knee surgery
Chronic back pain-recent steroid taper
Anemia-slow drop in H&H without any external bleeding noted.HH stable . Continue to follow while in IV heparin.
Hypokalemia replete
Hypocalcemia but corrected Ca to albumin is 8.6
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
DVT ppx: IV Heparin
Code: Full
tx to 2S on tele
Anticipated Discharge: > 48 hours
Subjective/Interval History
-
Date of Service: September 17, 2023
No nausea. NG tube in place. Not passing any gas.
Pain from abdomen is okay with the current pain regimen.
Denies shortness of breath.
Objective Data
-
Labs:
Laboratory Results
09/17/23
04:43
WBC 16.9 H
Hgb 9.2 L
Hct 27.0 L
Plt Count 120 L
APTT 80.1 H
Sodium 136
Potassium 3.4 L
Chloride 104
Carbon Dioxide 31 H
BUN 20
Creatinine 0.8
Glucose 116 H
Calcium 6.9 L*
Total Bilirubin 1.4 H
AST 151 H
ALT 288 H
Alkaline Phosphatase 118
Vital Signs:
Vital Signs
Temp Pulse Resp BP Pulse Ox
98.1 F 104 18 129/68 96
09/17/23 07:17 09/17/23 05:00 09/17/23 05:54 09/17/23 04:00 09/17/23 05:54
I&O
09/16/23 09/17/23 09/18/23
06:59 06:59 06:59
Intake Total 2797.8 / 2889.8 2454.1 / 2454.1
Output Total 1485 / 1485 1880 / 1880
Balance 1312.8 / 1404.8 574.1 / 574.1
Review of Systems
-
Constitutional: Denies Fever
EENT: Denies Sore Throat
Respiratory: Denies Cough or Trouble Breathing
Cardiac: Denies Chest Pain
Neuro: Denies Dizzy
Physical Exam
-
General: No Apparent Distress
HEENT: Moist Mucous Membranes
Respiratory: Clear to Auscultation (anteriorly)
Cardiac: Regular Rhythm and S1/S2
GI: Soft; Negative Normal Bowel Sounds
Neuro: AO x 3
Psych: Calm; Negative Confused
Data Reviewed
-
Labs: Labs Reviewed by me
--- NOTE | 2023-09-17 09:00 | PTCARENOTE ---
recd pt handoff in room, VOCATIONAL INSTRUCTOR continues, heparin therapeutic. OOB to chair, RW available but pt didn't need, stood, gait steady, rest of assessment as documented. voided. abd dressing intact. NG drainage as noted, thicker brown. no nausea.
aware of plans, presently in chair, resting. Using IS.
--- NOTE | 2023-09-17 10:42 | W.PN.VS ---
Addendum entered and electronically signed by Skyler Lundberg MD 09/17/23 11:29:
Seen and examined with KATHY Ortiz. Agree with findings as noted below. Patient notes abdominal pain continues to improve. NG tube with 900 cc over 24 hours. Urine output good as noted in charting. Afebrile. Resting relatively comfortably today.
NG tube with bilious drainage in canister, but drainage and tube currently brownish. Abdomen is soft. Mildly distended. Incision clean dry and intact. Plan/as discussed and noted below.
Original Note:
Today's Communication / Plan
-
Seen and assessed with Dr. Lundberg
Assessment/Plan
-
POD 4 Exploratory laparotomy, lysis of adhesions, aortomesenteric bypass nick thrombectomy, mesenteric arteriogram, patch angioplasty of aortomesenteric bypass
Plan:
-Continue heparin infusion with therapeutic PTT
-Continuing Zosyn for today
-Continue FOUNTAIN ATTENDANT as he is n.p.o. with NG tube
-Continue NG tube, n.p.o., as he reports no return of bowel function
-Electrolytes repleted
Subjective Data
-
Date of Service: September 17, 2023
Patient seen at bedside this a.m. with Dr. Lundberg. Patient states he is having less pain, not having to use the FOUNTAIN ATTENDANT often. Only passing gas when voiding. No events overnight
Objective Data
-
Vital Signs
Temp Pulse Resp BP Pulse Ox
98.1 F 104 18 129/68 92
09/17/23 07:17 09/17/23 05:00 09/17/23 05:54 09/17/23 04:00 09/17/23 08:00
Intake and Output
09/16/23 09/17/23 09/18/23
06:59 06:59 06:59
Intake Total 2797.8 / 2889.8 2454.1 / 2454.1
Output Total 1485 / 1485 1880 / 1880
Balance 1312.8 / 1404.8 574.1 / 574.1
Intake:
IV fluids (Total) 2467.8 / 2559.8 2224.1 / 2224.1
Ca 130 / 130
D5/0.45%NaCl 1,000 ml @ 80 mls/ 2200 / 2280 1760 / 1760
hr IV .[id number] [facility] Rx#:[id number]
Heparin 265 / 277 264 / 264
KCL 67.5 / 67.5
FOUNTAIN ATTENDANT dilaudid 2.8 / 2.8 2.6 / 2.6
IV piggybacks 150 / 150 150 / 150
Amount instilled into GI Tube ( 180 / 180 80 / 80
Total)
[place] Sump 180 / 180 80 / 80
Output:
Gastrointestinal tube output ( 500 / 500 900 / 900
Total)
[place] Sump 500 / 500 900 / 900
Urine, Chavez 985 / 985 425 / 425
Urine, Voided 555 / 555
Lab Results
09/17/23 04:43
09/17/23 04:43
Calcium 6.9 mg/dl (8.4-10.2) L* 09/17/23 04:43
Phosphorus 5.4 mg/dl (2.5-4.5) H 09/13/23 03:17
Magnesium 1.8 mg/dl (1.6-2.3) 09/13/23 03:17
Total Bilirubin 1.4 mg/dl (0.2-1.3) H 09/17/23 04:43
Direct Bilirubin Cancelled 09/15/23 18:00
AST 151 U/L (17-59) H 09/17/23 04:43
ALT 288 U/L (0-50) H 09/17/23 04:43
Alkaline Phosphatase 118 U/L (38-126) 09/17/23 04:43
Total Protein 3.9 g/dl (6.3-8.2) L 09/17/23 04:43
Albumin 1.9 g/dl (3.5-5.0) L 09/17/23 04:43
Physical Exam
-
AAOx3
No tachypnea on 2 L
Tachycardia in the 100s
Diffusely tender, mild distension, soft
Abdominal christin CDI and well-approximated
2+ fem pulses
NGT 900*
[2023-09-17 11:45] LABS: Glucose - Point of Care 113 mg/dl (70-99)
--- NOTE | 2023-09-17 12:00 | PTCARENOTE ---
heme + marco antonio/dark brown liquid stool on bedpan, MDs notified. back to bed, gait steady, resting. to room air, sats good.
--- NOTE | 2023-09-17 14:31 | CM ---
CM following re: discharge planning.
Discussed in rounds, reviewed pt's chart, met with pt. Pt is POD # 4 Exploratory laparotomy, lysis of adhesions, aortomesenteric bypass nick thrombectomy, mesenteric arteriogram, patch angioplasty of aortomesenteric bypass.
Vascular surgery following, continue [place] tube, continue supportive care.
PT and OT will reevaluate the pt to confirm a level of care at discharge. Pt is open to go to a SNF for a short term rehab.
A list of SNFs provided to pt for a review.
D/C plan: most likely SNF. Pt has a list of SNFs
CM will follow with discharge plan updates as hospitalization progresses
--- NOTE | 2023-09-17 14:33 | W.PN.GS2 ---
Today's Communication / Plan
-
Clamp trials
Assessment / Plan
-
This is a 58-year-old male smoker who presented 09/13/2023 with abdominal pain found to have mesenteric ischemia, POD#4 s/p exploratory laparotomy, SMA and aorta mesenteric thrombectomy with patch angioplasty.
CT scan reviewed, some bowel wall thickening but no pneumatosis or portal venous gas. Vessels/graft are open. Leukocytosis slow trend down, lactate normalized. LFTs improving. Clinically improving, though small amount new melena today, H/H have
remained stable. Thrombocytopenia improved today.
-- No acute general surgery intervention warranted at this time.
-- Trend labs.
-- Abx: Zosyn for translocation especially given prosthetic graft
-- Clamp trials, if unsuccessful would consider initiating TPN tomorrow
-- Heparin drip per Vascular - if melena persists or Hb drops, may need to consider holding A/C
-- General surgery will continue to follow with serial abdominal exams.
Subjective Data
-
Date of Service: September 17, 2023
AF, reports pain improved, denies n/v with NGT to suction, passing liquid stool and flatus, nursing reports small volume liquid melanic stool
Objective Data
-
Intake and Output
09/16/23 09/17/23 09/18/23
06:59 06:59 06:59
Intake Total 2797.8 / 2889.8 2454.1 / 2454.1
Output Total 1485 / 1485 1880 / 1880 200 / 200
Balance 1312.8 / 1404.8 574.1 / 574.1 -200 / -200
Intake:
IV fluids (Total) 2467.8 / 2559.8 2224.1 / 2224.1
Ca 130 / 130
D5/0.45%NaCl 1,000 ml @ 80 mls/ 2200 / 2280 1760 / 1760
hr IV .[id number] KATERINE Rx#:[id number]
Heparin 265 / 277 264 / 264
KCL 67.5 / 67.5
FOLDER HAND dilaudid 2.8 / 2.8 2.6 / 2.6
IV piggybacks 150 / 150 150 / 150
Amount instilled into GI Tube ( 180 / 180 80 / 80
Total)
[place] Sump 180 / 180 80 / 80
Output:
Gastrointestinal tube output ( 500 / 500 900 / 900
Total)
[place] Sump 500 / 500 900 / 900
Urine, Chavez 985 / 985 425 / 425
Urine, Voided 555 / 555 200 / 200
Vital Signs
Temp Pulse Resp BP Pulse Ox
98.2 F 104 18 129/68 92
09/17/23 11:04 09/17/23 05:00 09/17/23 05:54 09/17/23 04:00 09/17/23 08:00
Lab Results
09/17/23 04:43
Calcium 6.9 mg/dl (8.4-10.2) L* 09/17/23 04:43
Phosphorus 5.4 mg/dl (2.5-4.5) H 09/13/23 03:17
Magnesium 1.8 mg/dl (1.6-2.3) 09/13/23 03:17
Total Bilirubin 1.4 mg/dl (0.2-1.3) H 09/17/23 04:43
Direct Bilirubin Cancelled 09/15/23 18:00
AST 151 U/L (17-59) H 09/17/23 04:43
ALT 288 U/L (0-50) H 09/17/23 04:43
Alkaline Phosphatase 118 U/L (38-126) 09/17/23 04:43
Total Protein 3.9 g/dl (6.3-8.2) L 09/17/23 04:43
Albumin 1.9 g/dl (3.5-5.0) L 09/17/23 04:43
Physical Exam
-
Gen: NAD
Abd: soft, approp ttp, incision cdi with some clotted blood at the skin level, mild distention
[2023-09-17 14:35] LABS: Hematocrit 29.4 % (39.0-52.0)
--- NOTE | 2023-09-17 14:50 | PTCARENOTE ---
seen by Dr. Ward, drawn, sent, results to MDs via TT. agreeable to get up later. NG presently clamped.
--- NOTE | 2023-09-17 16:11 | PTCARENOTE ---
ambulated approx [address], tolerated, used RW, back in chair. 'tired.'
--- NOTE | 2023-09-17 18:35 | PTCARENOTE ---
Powers NG tube reconnected to suction per order, drained immed approx 200 thick brown viscous fluid. left to suction, pt aware, resting.
[2023-09-17] MEDS: D5/0.45%NACL IV (20:13)
--- NOTE | 2023-09-17 20:48 | PTCARENOTE ---
received patient. oriented x3, flat affect. c/o moderate abdominal pain, reinforced education on CRAWLER TRACTOR OPERATOR pump usage. ST on monitor. on RA, denies SOB, diminished breath sounds noted. NGT in R nare to LIS. NPO status. urinal at bedside. midline incision
dressing C/D/I. heparin gtt infusing, PTT due in AM. IVF and dilaudid CRAWLER TRACTOR OPERATOR also infusing. hygiene provided. tele level of care. pt repositioned with assistance. care ongoing.
[2023-09-17] MEDS: HEPARIN 25000 UNITS/250 ML IV (21:22)
[2023-09-18] VITALS (7 sets, daily range): BP systolic 115–151; BP diastolic 64–80; PULSE 98–112; BMI 23.8
[2023-09-18] MEDS: ZOSYN 50 IV ×4 (05:20→22:59)
[2023-09-18 06:40] LABS: Hematocrit 25.3 % (39.0-52.0); Hemoglobin 8.5 g/dL (13.0-18.0); Mean Corp Hgb Conc. 33.6 g/dL (33.0-37.0); Mean Corpuscular Hgb 29.7 pg (27.0-31.0); Mean Corpuscular Volume 88.5 fL (80.0-94.0); Mean Platelet Volume 12.8 fL (7.4-10.4); Platelet Count 133 10^3/uL (130-400); Red Blood Cell Count 2.86 10^6/uL (4.70-6.10); Red Cell Dist. Width 14.6 % (11.5-14.5); White Blood Cell Count 15.8 10^3/uL (4.8-10.8)
[2023-09-18 06:49] LABS: APTT 61.1 Sec (23.4-35.0)
[2023-09-18 07:13] LABS: Blood Urea Nitrogen 20 mg/dl (9-20); Calcium 7.1 mg/dl (8.4-10.2); Carbon Dioxide 31 mmol/L (22-30); Chloride 103 mmol/L (98-107); Estimated Creatinine Clearance 93 ml/min; Glucose 109 mg/dl (70-99); Potassium 3.7 mmol/L (3.5-5.1); Sodium 135 mmol/L (135-145); eGFR > 60.00
--- NOTE | 2023-09-18 08:00 | W.PN.VS ---
Addendum entered and electronically signed by Skyler Lundberg MD 09/18/23 10:45:
Abdominal x-ray reviewed. NG tube appears in satisfactory position, does not appear postpyloric. Findings to my interpretation appear to represent an ileus. There is air throughout the colon. No sign of small bowel obstruction.
Addendum entered and electronically signed by Skyler Lundberg MD 09/18/23 10:43:
Seen and examined with cabinet mounter Britton and Diana. Agree with findings as noted below. Patient notes abdominal discomfort improving continued. No nausea. No real flatus though, minimal at times of small bowel movements. No bloody bowel movements. NG
tube still putting out significant amounts. Bilious in nature. His abdomen is soft. Mild distended still. But improved overall. Labs reviewed. Plan/as discussed and noted below. Replace NG tube 1/2 cc/cc of drainage. Will begin TPN today as
he is still not taking p.o. (PICC line). Reassess later if NG tube output has slowed we can try clamping trial or potentially even removing but drainage is still excessive. Will obtain abdominal x-ray to make sure NG tube is not postpyloric and
that there is not an overwhelming ileus.
Original Note:
Today's Communication / Plan
-
Seen and assessed Dr. Lundberg
Assessment/Plan
-
POD 5 Exploratory laparotomy, lysis of adhesions, aortomesenteric bypass nick thrombectomy, mesenteric arteriogram, patch angioplasty of aortomesenteric bypass
Plan:
-Continue heparin infusion with no changes or PTTs at this time
-Continuing Zosyn for today
-Continue BAND MANAGER as he is n.p.o. with NG tube
-Continue NG tube, n.p.o., reporting he is passing gas but is still having high outputs in the NG
-Abdominal xrays today
-600cc bolus to replace NGT loss
-PICC today to initiate TPN
Subjective Data
-
Date of Service: September 18, 2023
Patient seen at bedside this a.m. with Dr. Lundberg. Patient offers no complaints at this time. Heme+ stool last night, no obvious signs of bleeding were noted.
Objective Data
-
Vital Signs
Temp Pulse Resp BP Pulse Ox
97.8 F 100 16 116/79 93
09/18/23 03:37 09/18/23 05:00 09/17/23 15:00 09/18/23 04:03 09/18/23 04:07
Intake and Output
09/17/23 09/18/23 09/19/23
06:59 06:59 06:59
Intake Total 2454.1 / 2454.1 1815.1 / 1815.1
Output Total 1880 / 1880 3475 / 3475
Balance 574.1 / 574.1 -1659.9 / -1659.9
Intake:
IV fluids (Total) 2224.1 / 2224.1 1435.1 / 1435.1
Ca 130 / 130 0 / 0
D5/0.45%NaCl 1,000 ml @ 80 mls/ 1760 / 1760 1040 / 1040
hr IV .[id number] [facility] Rx#:[id number]
Heparin 264 / 264 180 / 180
KCL 67.5 / 67.5 210 / 210
BAND MANAGER dilaudid 2.6 / 2.6 5.1 / 5.1
IV piggybacks 150 / 150 200 / 200
Amount instilled into GI Tube ( 80 / 80 180 / 180
Total)
[place] Sump 80 / 80 180 / 180
Output:
Gastrointestinal tube output ( 900 / 900 2300 / 2300
Total)
Prole Sump 900 / 900 2300 / 2300
Urine, Chavez 425 / 425
Urine, Voided 555 / 555 1175 / 1175
Lab Results
09/18/23 06:15
09/18/23 06:15
Calcium 7.1 mg/dl (8.4-10.2) L 09/18/23 06:15
Phosphorus 5.4 mg/dl (2.5-4.5) H 09/13/23 03:17
Magnesium 1.8 mg/dl (1.6-2.3) 09/13/23 03:17
Total Bilirubin 1.4 mg/dl (0.2-1.3) H 09/17/23 04:43
Direct Bilirubin Cancelled 09/15/23 18:00
AST 151 U/L (17-59) H 09/17/23 04:43
ALT 288 U/L (0-50) H 09/17/23 04:43
Alkaline Phosphatase 118 U/L (38-126) 09/17/23 04:43
Total Protein 3.9 g/dl (6.3-8.2) L 09/17/23 04:43
Albumin 1.9 g/dl (3.5-5.0) L 09/17/23 04:43
Physical Exam
-
AAOx3
No tachypnea on 2 L
Tachycardia in the 100s
Diffusely tender, mild distension, soft
Abdominal christin CDI and well-approximated
2+ fem pulses
NGT 1000*
--- NOTE | 2023-09-18 08:45 | PTCARENOTE ---
Received pt @ change of shift. Pt. drowsy, awakens to verbal stimuli, ox3, flat affect. Pain managed w SURVEYOR GEODETIC- see flow sheet. SR on monitor. SpO2 97% on RA. R nare NGT to cont suction -80mmHg w mod-lg amt of brown/green drainage. NPO status
maintained. Urinal w/ in reach, dark jovani urine/ Midline incision c/d/i. #18 L AC w SURVEYOR GEODETIC and IVF infusing. #20 R wrist w heparin gtt- see flow sheet. PTT this AM resulted below therapeutic; vascular surgery team to bedside this AM and further orders
received to keep at same rate and draw PTTs daily. #22 R FA patent, dressing c/d/i. Pt. instructed on how to report care concerns, call antonio in reach.
--- NOTE | 2023-09-18 09:00 | W.PN.HOSP.TC ---
Today's Communication/Plan
-
Start on IV PPI twice a day. Follow H&H closely.
PICC line and TPN vascular.
Continue with antibiotics .
Assessment / Plan
Assessment / Plan
Assessment:
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
- s/p Exploratory laparotomy, lysis of adhesions, aorto-mesenteric bypass Tona thrombectomy, mesenteric arteriogram, patch angioplasty of aorto-mesenteric bypass 09/12
- lactic acidosis normalized
- CT-A 09/13 showing patient bypass, concern for bowel ischemia
- Colorectal following
- Vascular following
- continue IV Heparin per vascular protocol
- Dilaudid CLINICAL INSTRUCTOR for pain control
- continue Zosyn day 7 . Follow leukocytosis-improving
- BCX neg
Hematology input about thrombophilia assessments noted - transition into DOAC once off of IV heparin and follow with her in offfice for work up.
Anemia -moderate . Drop in HH since yesterday. He had small amounts of melena yesterday. His NG tube aspirate is dark. Hemodynamically stable. No prior history of peptic ulcer disease. Start on Protonix twice a day. Follow H&H closely and if
continued drop concern holding IV heparin. Vascular following. Repeat HH this evening , earlier if bleeding.
Hyperglycemia
No hx of DM
HbA1C 5.8
Tobacco abuse- remains actively smoking
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
CAD s/p prior hx of NSTEMI -asymptomatic without chest pain. On aspirin at home. Currently on IV heparin.
Hx of DVT status post apixaban 03/2021 post left knee surgery
Chronic back pain-recent steroid taper
Nutrition-surgery planning on PICC line placement and initiating TPN.
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
DVT ppx: IV Heparin
Code: Full
Total time spent on today's encounter was 52 minutes which included time spent in counseling the patient regarding diagnosis and treatment plan as listed above, goals of care, and symptom management. Case was discussed with nursing staff,
specialists, All labs and imaging personally reviewed by me. Remainder the time spent in detailed review of previous records, lab data, imaging, and other medical provider documentation.
Anticipated Discharge: > 48 hours
Subjective/Interval History
-
Date of Service: September 18, 2023
Patient with continued abdominal pain requiring CLINICAL INSTRUCTOR pump.
NG tube in place. No nausea or vomiting.
Has not passed any gas or bowel movement today so far.
Denies shortness of breath.
Objective Data
-
Labs:
Laboratory Results
09/18/23 09/18/23 09/18/23
06:15 09:00 21:00
WBC 15.8 H
Hgb 8.5 L Pending Pending
Hct 25.3 L Pending Pending
Plt Count 133
APTT 61.1 H
Sodium 135
Potassium 3.7
Chloride 103
Carbon Dioxide 31 H
BUN 20
Creatinine 0.9
Glucose 109 H
Calcium 7.1 L
Vital Signs:
Vital Signs
Temp Pulse Resp BP Pulse Ox
97.8 F 100 16 116/79 93
09/18/23 03:37 09/18/23 05:00 09/17/23 15:00 09/18/23 04:03 09/18/23 04:07
I&O
09/17/23 09/18/23 09/19/23
06:59 06:59 06:59
Intake Total 2454.1 / 2454.1 1815.1 / 1815.1
Output Total 0 / 1880 3475 / 3475
Balance 574.1 / 574.1 -1659.9 / -1659.9
Review of Systems
-
Constitutional: Denies Fever
Respiratory: Denies Cough
Cardiac: Denies Chest Pain
Neuro: Denies Dizzy
Physical Exam
-
General: No Apparent Distress
HEENT: Moist Mucous Membranes
Respiratory: Clear to Auscultation (Anteriorly)
Cardiac: Regular Rhythm and S1/S2
GI: Soft, Nondistended and Tender (No rebound ,guarding); Negative Normal Bowel Sounds (Hypoactive)
Neuro: AO x 3
Psych: Calm; Negative Confused
Data Reviewed
-
Labs: Labs Reviewed by me
[2023-09-18] MEDS: NSS (PRESERVATIVE FREE) 10 ML IV ×2 (09:12→19:56)
[2023-09-18] MEDS: PROTONIX IV 40 MG IV ×2 (09:12→19:56)
[2023-09-18] MEDS: NSS 500 IV (09:12)
[2023-09-18] MEDS: D5/0.45%NACL 1000 IV (11:03)
--- NOTE | 2023-09-18 11:06 | W.PN.GS2 ---
Today's Communication / Plan
-
`
Assessment / Plan
-
This is a 58-year-old male smoker who presented 09/13/2023 with abdominal pain found to have mesenteric ischemia,
POD#5 s/p exploratory laparotomy, SMA and aorta mesenteric thrombectomy with patch angioplasty (vascular)
AFVSS (HR 100)
abdominal exam stable, WBC improved to 15; BMP okay, no acidosis
NGT with high bilious outputs and Xray today suggestive of ileus
Plan:
-- PICC line and start TPN
-- Maintain NGT to LIWS
-- Abx: Zosyn for translocation especially given prosthetic graft
-- Heparin drip per Vascular
Subjective Data
-
Date of Service: September 18, 2023
pt seen and examined
sitting in chair at bedside
abdominal pain stable, improved from earlier
no nausea
no flatus or BM
continues to feel distended
Objective Data
-
Intake and Output
09/17/23 09/18/23 09/19/23
06:59 06:59 06:59
Intake Total 2454.1 / 2454.1 1815.1 / 1815.1
Output Total 1880 / 1880 3475 / 3475
Balance 574.1 / 574.1 -1659.9 / -1659.9
Intake:
IV fluids (Total) 2224.1 / 2224.1 1435.1 / 1435.1
Ca 130 / 130 0 / 0
D5/0.45%NaCl 1,000 ml @ 80 mls/ 1760 / 1760 1040 / 1040
hr IV .[id number] KATERINE Rx#:[id number]
Heparin 264 / 264 180 / 180
KCL 67.5 / 67.5 210 / 210
MANUFACTURER REPRESENTATIVE dilaudid 2.6 / 2.6 5.1 / 5.1
IV piggybacks 150 / 150 200 / 200
Amount instilled into GI Tube ( 80 / 80 180 / 180
Total)
[place] Sump 80 / 80 180 / 180
Output:
Gastrointestinal tube output ( 900 / 900 2300 / 2300
Total)
[place] Sump 900 / 900 2300 / 2300
Urine, Chavez 425 / 425
Urine, Voided 555 / 555 1175 / 1175
Vital Signs
Temp Pulse Resp BP Pulse Ox
98.5 F 100 16 116/79 92
09/18/23 07:25 09/18/23 05:00 09/17/23 15:00 09/18/23 04:03 09/18/23 08:00
Lab Results
09/18/23 21:00
09/18/23 06:15
Calcium 7.1 mg/dl (8.4-10.2) L 09/18/23 06:15
Phosphorus 5.4 mg/dl (2.5-4.5) H 09/13/23 03:17
Magnesium 1.8 mg/dl (1.6-2.3) 09/13/23 03:17
Total Bilirubin 1.4 mg/dl (0.2-1.3) H 09/17/23 04:43
Direct Bilirubin Cancelled 09/15/23 18:00
AST 151 U/L (17-59) H 09/17/23 04:43
ALT 288 U/L (0-50) H 09/17/23 04:43
Alkaline Phosphatase 118 U/L (38-126) 09/17/23 04:43
Total Protein 3.9 g/dl (6.3-8.2) L 09/17/23 04:43
Albumin 1.9 g/dl (3.5-5.0) L 09/17/23 04:43
Physical Exam
-
NAD AAOx3
ABD: distended and tympany. generalize tenderness and incisional tenderness
incision dressing in place
NGT with bilious outputs
--- NOTE | 2023-09-18 11:20 | W.PN.ONC ---
Today's Communication / Plan
-
Abdominal x-ray NG tube in place ileus pattern persists
WBC count improving
Monitor CBC w/ diff daily repeat H&H pending given drop from 10 to 8.5 g/dL
Transfuse as needed to maintain Hgb >7, PLT >20 (or >50 with active bleeding)
Supportive care
Continue heparin gtt, monitor PTT
Antiphospholipid antibody panel pending pending
Workup can be completed outpatient.
We will follow
Impression
Impression
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
s/p ex lap, OSKAR, aorto-mesenteric bypass thrombectomy, mesenteric arteriogram, patch angioplasty of aorto-mesenteric bypass 09/13/23
Current smoker
Leukocytosis
Neutrophilia
Mild thrombocytopenia
Hx DVT s/p orthopedic surgery after anticoagulation discontinued (2020)
Family hx of VTE
Plan
Plan
POD#3 Exploratory laparotomy, lysis of adhesions, aorto-mesenteric bypass Tona thrombectomy, mesenteric arteriogram, patch angioplasty of aorto-mesenteric bypass. EBL 500
Subjective/Objective
Subjective/Objective
Patient sitting upright NG tube in place. Anxious to know when he can get back in bed.
Vital Signs:
Vital Signs
Temp Pulse Resp BP Pulse Ox
98.5 F 100 16 116/79 92
09/18/23 07:25 09/18/23 05:00 09/17/23 15:00 09/18/23 04:03 09/18/23 08:00
HEENT without scleral icterus
Heart Regular
Lungs slightly decreased in the bases
Extremities without pretibial edema
Lab Results:
Laboratory Data
WBC 15.8 10^3/uL (4.8-10.8) H 09/18/23 06:15
Hgb Cancelled 09/18/23 21:00
Plt Count 133 10^3/uL (130-400) 09/18/23 06:15
PT 17.8 Sec (11.4-14.6) H 09/13/23 03:17
INR 1.49 09/13/23 03:17
APTT 61.1 Sec (23.4-35.0) H 09/18/23 06:15
eGFR > 60.00 09/18/23 06:15
--- NOTE | 2023-09-18 13:57 | CM ---
CM following re: discharge planning.
Discussed in rounds, reviewed pt's chart, met with pt. Pt is POD # 5 Exploratory laparotomy, lysis of adhesions, aortomesenteric bypass nick thrombectomy, mesenteric arteriogram, patch angioplasty of aortomesenteric bypass.
Vascular surgery following, continue NJ tube, continue supportive care.
PT and OT evaluations noted - home PT vs SNF recommended. Pt is aware and he is deciding. Pt has a list of SNFs.
PT and OT will reevaluate to determine a level of care at discharge.
D/C plan: Home PT vs SNF. Pt deciding.
CM will follow with discharge plan updates as hospitalization progresses
--- NOTE | 2023-09-18 15:51 | PTCARENOTE ---
R DL PICC placed by VAT; placement confirmed w x-ray. R arm PIVs removed. Heparin gtt infusing via R DL PICC. WEIGHT TESTER d/c'd per orders. ABD x-ray reviewed by surgery; NGT tube in correct position and plan to start TPN tonight. NGT drained 400mL
green/brown liq since change of shift. Pt. updated on plan of care and call antonio in reach.
[2023-09-18] MEDS: DILAUDID 1 MG IV ×3 (16:35→22:58)
[2023-09-18 16:51] LABS: Hematocrit 24.4 % (39.0-52.0); Hemoglobin 8.3 g/dL (13.0-18.0)
[2023-09-18] MEDS: NSS 250 IV (17:19)
--- NOTE | 2023-09-18 17:22 | PTCARENOTE ---
Patient received from ICU in wheelchair, ambulated patient to bed; NGT in place to R nare, continuous suction set per order; Heparin gtt infusing at 12mL/hr - next PTT to be drawn tomorrow per DANCE MASTER; Midline incision C/D/I; Patient oriented to room
and unit; Call antonio within reach; Bed in lowest position, wheels locked; Assessment ongoing
--- NOTE | 2023-09-18 17:35 | PTCARENOTE ---
Report given to [address] [place] [address] RN, Lexi, and pt. transferred via wheelchair w belongings on panel monitor to rm [id number]. No further needs from this RN.
[2023-09-18] MEDS: HEPARIN 25000 UNITS/250 ML IV (19:57)
[2023-09-18] MEDS: Parenteral Nutrition, Central 1920 IV (22:02)
[2023-09-18 23:43] LABS: Glucose - Point of Care 133 mg/dl (70-99)
[2023-09-19] VITALS (21 sets, daily range): BP systolic 114–181; BP diastolic 64–91; PULSE 93; O2SAT 94; BMI 24.6
[2023-09-19] MEDS: DILAUDID 1 MG IV ×6 (02:07→22:09)
[2023-09-19] MEDS: ZOSYN 50 IV ×3 (05:16→19:25)
[2023-09-19 05:52] LABS: Glucose - Point of Care 165 mg/dl (70-99)
[2023-09-19 08:04] LABS: Hemoglobin 7.8 g/dL (13.0-18.0); Mean Corp Hgb Conc. 33.9 g/dL (33.0-37.0); Mean Corpuscular Volume 88.5 fL (80.0-94.0); Mean Platelet Volume 13.3 fL (7.4-10.4); Platelet Count 153 10^3/uL (130-400); Red Cell Dist. Width 14.7 % (11.5-14.5); White Blood Cell Count 20.1 10^3/uL (4.8-10.8)
[2023-09-19 08:19] LABS: APTT 52.8 Sec (23.4-35.0)
[2023-09-19 08:22] LABS: ALT (SGPT) 116 U/L (0-50); AST (SGOT) 81 U/L (17-59); Albumin 1.9 g/dl (3.5-5.0); Alkaline Phosphatase 130 U/L (38-126); Blood Urea Nitrogen 19 mg/dl (9-20); Carbon Dioxide 30 mmol/L (22-30); Chloride 100 mmol/L (98-107); Estimated Creatinine Clearance 105 ml/min; Glucose 169 mg/dl (70-99); Magnesium 2.1 mg/dl (1.6-2.3); Phosphorus 2.2 mg/dl (2.5-4.5); Sodium 134 mmol/L (135-145); Total Bilirubin 1.6 mg/dl (0.2-1.3); Total Protein 3.8 g/dl (6.3-8.2); eGFR > 60.00
[2023-09-19] MEDS: PROTONIX IV 40 MG IV (08:24)
[2023-09-19] MEDS: NSS (PRESERVATIVE FREE) 10 ML IV (08:24)
[2023-09-19 08:44] LABS: Cardiolipin IgA Antibody <10 APL (<=11); Cardiolipin IgM Antibody <10 MPL (<=12); Cardiolipin Igg Antibody <10 GPL (<=14)
--- NOTE | 2023-09-19 08:56 | W.PN.GS2 ---
Addendum entered and electronically signed by Yuan Mckenzie MD 09/19/23 09:50:
Patient seen and examined. Agree with assessment plan as documented below.
Abdominal pain stable. Complaints of sore throat. No nausea or vomiting. Reports passing stools with voids, nonbloody. No recent flatus.
Gen: NAD
HEENT: NGT dark bilious
Abd: soft, distended, tympanitic, mild/moderate tenderness, non-peritoneal
This is a 58-year-old male smoker who presented 09/13/2023 with abdominal pain found to have mesenteric ischemia,
POD#6�s/p exploratory laparotomy, SMA and aorta mesenteric thrombectomy with patch angioplasty (vascular)
Afebrile, tachycardic
Abdominal exam stable, WBC elevated to 20.1; hypokalemia/hypophosphatemia present
NGT with high bilious outputs
Plan:
-- Replace electrolytes and follow closely for refeeding syndrome. Will continue TPN as per nutrition recs with additional electrolytes
-- Maintain NGT to LIWS
-- Check ABD XR this am
-- Abx: Zosyn for translocation especially given prosthetic graft
-- Heparin drip per Vascular
Original Note:
Today's Communication / Plan
-
Continue TPN, replace electrolytes
XR abd
Assessment / Plan
-
This is a 58-year-old male smoker who presented 09/13/2023 with abdominal pain found to have mesenteric ischemia,
POD#6 s/p exploratory laparotomy, SMA and aorta mesenteric thrombectomy with patch angioplasty (vascular)
Afebrile, tachycardic
abdominal exam stable, WBC elevated to 20.1; hypokalemia/hypophosphatemia present
NGT with high bilious outputs
Plan:
-- Replace electrolytes and follow closely for refeeding syndrome. Will continue TPN as per nutrition recs with additional electrolytes
-- Maintain NGT to LIWS
-- Check ABD XR this am
-- Abx: Zosyn for translocation especially given prosthetic graft
-- Heparin drip per Vascular
Subjective Data
-
Date of Service: September 19, 2023
Patient seen and examined at bedside with Dr. Mckenzie. Notes he has passed some liquid rectally with voiding but has not had much flatus. Denies nausea. c/o dry mouth. Pain present, but well controlled.
Objective Data
-
Intake and Output
09/18/23 09/19/23 09/20/23
06:59 06:59 06:59
Intake Total 1815.1 / 1815.1 1780 / 1780
Output Total 3475 / 3475 1550 / 1550
Balance -1659.9 / -1659.9 230 / 230
Intake:
Oral fluids 60 / 60
IV fluids (Total) 1435.1 / 1435.1 920 / 920
Ca 0 / 0
D5/0.45%NaCl 1,000 ml @ 80 mls/ 1040 / 1040 800 / 800
hr IV .[id number] KATERINE Rx#:[id number]
Heparin 180 / 180 120 / 120
KCL 210 / 210
IMAGING TECH dilaudid 5.1 / 5.1
IV piggybacks 200 / 200 650 / 650
Amount instilled into GI Tube ( 180 / 180 150 / 150
Total)
[place] Sump 180 / 180 150 / 150
Output:
Gastrointestinal tube output ( 2300 / 2300 925 / 925
Total)
[place] Sump 2300 / 2300 925 / 925
Urine, Voided 1175 / 1175 625 / 625
Vital Signs
Temp Pulse Resp BP Pulse Ox
98.4 F 91 14 127/66 94
09/19/23 07:16 09/19/23 07:16 09/19/23 07:16 09/19/23 07:16 09/19/23 07:16
Lab Results
09/19/23 07:44
09/19/23 07:44
Calcium 7.0 mg/dl (8.4-10.2) L 09/19/23 07:44
Phosphorus 2.2 mg/dl (2.5-4.5) L 09/19/23 07:44
Magnesium 2.1 mg/dl (1.6-2.3) 09/19/23 07:44
Total Bilirubin 1.6 mg/dl (0.2-1.3) H 09/19/23 07:44
Direct Bilirubin Cancelled 09/15/23 18:00
AST 81 U/L (17-59) H 09/19/23 07:44
ALT 116 U/L (0-50) H 09/19/23 07:44
Alkaline Phosphatase 130 U/L (38-126) H 09/19/23 07:44
Total Protein 3.8 g/dl (6.3-8.2) L 09/19/23 07:44
Albumin 1.9 g/dl (3.5-5.0) L 09/19/23 07:44
Physical Exam
-
NAD AAOx3
ABD: distended and tympany. generalized tenderness and incisional tenderness
incision dressing in place
NGT with bilious outputs
--- NOTE | 2023-09-19 09:09 | W.PN.VS ---
Addendum entered and electronically signed by Ayaz Chavez III, MD 09/19/23 13:50:
This patient was seen and examined with AVIVA Ramirez and Fe. I agree with the history and physical exam as well as the assessment and plan. I have the following additions:
GI bleeding while on anticoagulation
Acute anemia
Hemodynamically stable
He is nontoxic-appearing
Abdomen is tympanitic but he has no peritoneal signs
NG tube is bilious
Incision clean and dry
Will transfer to the ICU for closer monitoring
Transfuse 2 units
GI consult for possible scope
PPI drip
Keep NG tube
Keep n.p.o.
TPN
Signed:
Ayaz Chavez III, MD
[facility] Vascular Surgery
[phone] ([phone])
Addendum entered and electronically signed by AVIVA Ramirez 09/19/23 11:52:
Will transfer patient to ICU for enhanced monitoring of VS and I&O
Original Note:
Today's Communication / Plan
-
See below
Assessment/Plan
-
POD 6 Exploratory laparotomy, lysis of adhesions, aortomesenteric bypass nick thrombectomy, mesenteric arteriogram, patch angioplasty of aortomesenteric bypass
Plan:
-Concern for GI bleed, consult gastroenterology
-Starting PPI infusion
-Continue standing heparin infusion
-Continue PRN pain medications
-Continue NG tube, n.p.o.
-Continue TPN per general surgery
Subjective Data
-
Date of Service: September 19, 2023
Patient seen and examined at bedside, reports continued lower back pain managed with PRN pain medication. Does endorse x1 BM overnight small amount dark colored, he does endorse flatus with voiding urine or BM otherwise does not pass flatus. Denies
nausea, fever, and chills.
Objective Data
-
Vital Signs
Temp Pulse Resp BP Pulse Ox
98.4 F 91 14 127/66 94
09/19/23 07:16 09/19/23 07:16 09/19/23 07:16 09/19/23 07:16 09/19/23 07:16
Intake and Output
09/18/23 09/19/23 09/20/23
06:59 06:59 06:59
Intake Total 1815.1 / 1815.1 1780 / 1780
Output Total 3475 / 3475 1550 / 1550
Balance -1659.9 / -1659.9 230 / 230
Intake:
Oral fluids 60 / 60
IV fluids (Total) 1435.1 / 1435.1 920 / 920
Ca 0 / 0
D5/0.45%NaCl 1,000 ml @ 80 mls/ 1040 / 1040 800 / 800
hr IV .[id number] [facility] Rx#:[id number]
Heparin 180 / 180 120 / 120
KCL 210 / 210
CLOTH STOCK SORTER dilaudid 5.1 / 5.1
IV piggybacks 200 / 200 650 / 650
Amount instilled into GI Tube ( 180 / 180 150 / 150
Total)
[place] Sump 180 / 180 150 / 150
Output:
Gastrointestinal tube output ( 2300 / 2300 925 / 925
Total)
[place] Sump 2300 / 2300 925 / 925
Urine, Voided 1175 / 1175 625 / 625
Lab Results
09/19/23 07:44
09/19/23 07:44
Calcium 7.0 mg/dl (8.4-10.2) L 09/19/23 07:44
Phosphorus 2.2 mg/dl (2.5-4.5) L 09/19/23 07:44
Magnesium 2.1 mg/dl (1.6-2.3) 09/19/23 07:44
Total Bilirubin 1.6 mg/dl (0.2-1.3) H 09/19/23 07:44
Direct Bilirubin Cancelled 09/15/23 18:00
AST 81 U/L (17-59) H 09/19/23 07:44
ALT 116 U/L (0-50) H 09/19/23 07:44
Alkaline Phosphatase 130 U/L (38-126) H 09/19/23 07:44
Total Protein 3.8 g/dl (6.3-8.2) L 09/19/23 07:44
Albumin 1.9 g/dl (3.5-5.0) L 09/19/23 07:44
Physical Exam
-
AAOx3
No tachypnea on room air
Diffusely tender, mild distension, soft
Abdominal christin CDI and well-approximated, dressing CDI, NGT with bilious output
2+ fem pulses
--- NOTE | 2023-09-19 09:13 | W.PN.HOSP.TC ---
Today's Communication/Plan
-
GI consult
CW PPI
Follow HH
IV heparin per vascular
Add muscle relaxants
Lumbar xray routine
Assessment / Plan
Assessment / Plan
Assessment:
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
- s/p Exploratory laparotomy, lysis of adhesions, aorto-mesenteric bypass Tona thrombectomy, mesenteric arteriogram, patch angioplasty of aorto-mesenteric bypass 09/12
- lactic acidosis normalized
- CT-A 09/13 showing patient bypass, concern for bowel ischemia
- Colorectal following
- Vascular following
- continue IV Heparin per vascular protocol
- Dilaudid HEALTHCARE FINANCIAL ANALYST for pain control
- continue Zosyn day 8 . Follow leukocytosis-improving
- BCX neg
Hematology input about thrombophilia assessments noted - transition into DOAC once off of IV heparin and follow with her in offfice for work up.
Anemia -moderate . Slow Drop in HH . He had small amounts of dark/black/red blood per rectum yesterday. His NG tube aspirate was dark but today much clearer. Hemodynamically stable. No prior history of peptic ulcer disease. Started on Protonix
twice a day. Unclear if upper GI or from bowel ischemia . Consult GI.
Chronic back pain-recent steroid taper. Continued mid back pain which is a equally troubling. No sciatica . Check plain xrays , add muscle relaxants ,cw pain meds.
Hyperglycemia
No hx of DM
HbA1C 5.8
Tobacco abuse- remains actively smoking
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
CAD s/p prior hx of NSTEMI -asymptomatic without chest pain. On aspirin at home. Currently on IV heparin.
Hx of DVT status post apixaban 03/2021 post left knee surgery
Nutrition-cw TPN.
DW Vascular surgery
DVT ppx: IV Heparin
Code: Full
Total time spent on today's encounter was 52 minutes which included time spent in counseling the patient regarding diagnosis and treatment plan as listed above, goals of care, and symptom management. Case was discussed with nursing staff,
specialists, All labs and imaging personally reviewed by me. Remainder the time spent in detailed review of previous records, lab data, imaging, and other medical provider documentation.
Anticipated Discharge: > 48 hours
Subjective/Interval History
-
Date of Service: September 19, 2023
Patient complains of 2 because of pain.
Continues to have abdominal pain which seems to be continuous. Score 6/10. No nausea today. NG tube in place. Does not think he is passing any flatus. No bowel movement this morning.
His other pain is mid low back pain.
For his abdominal issues he was having mid low back pain for 2 weeks. He was put on steroids taper. He has some radiation to the left back. No radiation to the buttock or the leg. He had a prior disc surgery 2 years ago.
Objective Data
-
Labs:
Laboratory Results
09/19/23
07:44
WBC 20.1 H
Hgb 7.8 L
Hct 23.0 L
Plt Count 153
APTT 52.8 H
Sodium 134 L
Potassium 3.0 L
Chloride 100
Carbon Dioxide 30
BUN 19
Creatinine 0.8
Glucose 169 H
Calcium 7.0 L
Total Bilirubin 1.6 H
AST 81 H
ALT 116 H
Alkaline Phosphatase 130 H
Vital Signs:
Vital Signs
Temp Pulse Resp BP Pulse Ox
98.4 F 91 14 127/66 94
09/19/23 07:16 09/19/23 07:16 09/19/23 07:16 09/19/23 07:16 09/19/23 07:16
I&O
09/18/23 09/19/23 09/20/23
06:59 06:59 06:59
Intake Total 1815.1 / 1815.1 1780 / 1780
Output Total 3475 / 3475 1550 / 1550
Balance -1659.9 / -1659.9 230 / 230
Review of Systems
-
Constitutional: Denies Fever
EENT: Denies Sore Throat
Respiratory: Denies Cough or Trouble Breathing
Cardiac: Denies Chest Pain
Neuro: Denies Dizzy
Physical Exam
-
General: No Apparent Distress
HEENT: Moist Mucous Membranes
Respiratory: Clear to Auscultation
Cardiac: Regular Rhythm and S1/S2
GI: Soft, Nondistended, Normal Bowel Sounds and Tender (discomfort in gen but no rebound or guarding)
Musculoskeletal: Other (Mild tenderness in mid lumbar area with left paraspinal discomfort ;SLR neg)
Neuro: AO x 3
Psych: Calm
Data Reviewed
-
Labs: Labs Reviewed by me
[2023-09-19] MEDS: PROTONIX 100 IV ×2 (10:08→19:50)
[2023-09-19] MEDS: POTASSIUM PHOSPHATE 259.090899999999976 MEQ IV ×2 (10:10→21:04)
--- NOTE | 2023-09-19 10:24 | CON.GI ---
Addendum entered and electronically signed by AVIVA Preston 09/19/23 14:00:
pt now moved to ICU noted with left flank bruising. Plan to proceed with CT ordered by vascular. Pt denies fall with back injury week prior to admission.
Addendum entered and electronically signed by Dylon Mcintyre MD 09/19/23 13:11:
I saw and examined the patient.
The OPEN END SPINNING OPERATOR's note was reviewed and I agree with the note.
-anemia with drop in hbg /black burgundy stools
-Acute mesenteric ischemia secondary to mesenteric bypass thrombosis� 09/12� s/p Exploratory laparotomy, lysis of adhesions, aorto-mesenteric bypass Tona thrombectomy, mesenteric arteriogram, patch angioplasty of aorto-mesenteric bypass
-hx� of Aorto-mesenteric bypass 05/2021; graft bypass into the celiac and SMA vessels.
- CT-A 09/13 showing patient bypass, concern for bowel ischemia
plan
NG tube-bilious drainage. Dark burgundy stool can be secondary to ischemic colitis .
Will recommend to monitor H&H
No acute GI intervention at this point
Continue follow-up with vascular surgery recommendation
GI will sign off. Please call us back if any questions
Original Note:
Consultation
-
Date/Time Consultation Requested: 09/19/23 0900
Date/Time Consultation Performed: 09/18/24 1015
Requesting Provider: AVIVA Martínez
Performing Provider: AVIVA Cross, Dylon Mcintyre MD
Reason for Consultation: heme + anemia
Medical History
Chief Complaint / HPI
History of Present Illness:
Pt is a 58yo with hx tobacco abuse/COPD, CAD, UT, Skin CA, prior DVT, mesenteric ischemia with celiac/SMA bypass 2020 after significant wt loss. He was on ASA only as per patient did not tolerate other medication due to bruising but no GI
bleed. He now presents to ER 09/11 with severe abdominal pain. CTA on admission with concern for complete occlusion of celiac/SMA graft. Pt was taken to ER 09/12 for exp lap, OSKAR, aortomesenteric bypass forgarty thrombectomy, mesenteric
arteriogram, patch angioplasty of aortomesenteric bypass. Pt has been followed post-op on heparin gtt and noted with ileus with NGT in place/ IV TPN and also with progressive drop in hbg was 17 on admission then drop to 7.8 09/18 with noted
black/burgundy stools.
Pt states prior to admission he had back injury after assisting his father after a fall. He admits to taking Advil 4 times per day then added steroids taking 6 tablets then admitted to hospital with abdominal pain. He admits to some stools
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 He continued with nausea and NGT output 900-2300 over last few days. He also admits pain was 10/10 on admission now 8/10 at worst rating. He denies dysphagia,
GERD, diarrhea, or constipation prior to admission. hx EGD: 08/2021 Novikov normal esophagus and duodenum, gastritis. Colonoscopy: 08/2021 [facility] - two 2-3 polyps descending colon and cecum, TA, 10mm polyp rectum TV adenoma.
Past Medical History
Past Medical History: CAD, Cancer (skin Ca with removal), COPD, Hypercholesterolemia, UT and Other (ASCVD, tobacco abuse, hemidiaphragm elevation, ventral hernia, hemorrhoidectomy, TA and TV adenoma polyps, DVT )
Past Surgical History: Orthopedic (microdiscectomy, knee arthroscopy ) and Other (mesenteric ischemia with prior celiac/SMA bypass 05/2021 )
Social History
Tobacco: Smoker (quit few days ago)
Alcohol: Former (heavy 4 years ago)
Drug: Marijuana (occasional )
Living: Alone
Employment: Employed
Family History
Family History: Other (mother and father with polyps)
Allergies / Home Medications
Allergy/AdvReac Type Severity Reaction Status Date / Time
No Known Allergies Allergy Verified 09/12/23 17:54
Medication Instructions Recorded
aspirin 81 mg tablet,delayed 81 mg PO DAILY Blood Clot 09/12/23
release Prevention/Tx
ibuprofen 200 mg capsule 800 mg PO TID PRN mild pain/fever 09/12/23
melatonin 5 mg tablet 20 mg PO HS Sleep 09/12/23
methylprednisolone 4 mg tablets in 4 mg PO UD Anti-Inflammatory 09/12/23
a dose pack
Review of Systems
-
History Source: Patient
Constitutional: Reports Weight Loss (in 2020 prior to initial bypass now stable )
EENT: Reports No Symptoms
Respiratory: Reports Trouble Breathing (at times with getting OOB)
Cardiac: Reports Chest Pain
Abdomen/GI: Reports Abdominal Pain, Nausea, Black Stools (burgundy/black stools) and Other (bloating)
: Reports Dark Urine
Musculoskeletal: Reports Other (back pain)
Skin: Reports No Symptoms
Neurological: Reports No Symptoms
Endocrine: Reports No Symptoms
Hematologic/Lymphatic: Reports Bleeding
Vital Signs
Temp Pulse Resp BP Pulse Ox
98.4 F 91 14 127/66 94
09/19/23 07:16 09/19/23 07:16 09/19/23 07:16 09/19/23 07:16 09/19/23 07:16
Physical Exam
Exam
General: Well Developed, Well Nourished and No Apparent Distress
HEENT: Normocephalic and Anicteric
Respiratory: Clear
Cardiac: Regular Rhythm
GI: Soft, Tender (diffuse), Distended and Other (NGT with bilious greenish drainage )
Musculoskeletal: No Clubbing and No Cyanosis
Skin: Warm and Dry
Neuro: Awake, Alert and AO x 3
Psych: Calm
Results
WBC 20.1 10^3/uL (4.8-10.8) H 09/19/23 07:44
Hgb 7.8 g/dL (13.0-18.0) L 09/19/23 07:44
Hct 23.0 % (39.0-52.0) L 09/19/23 07:44
MCV 88.5 fL (80.0-94.0) 09/19/23 07:44
Plt Count 153 10^3/uL (130-400) 09/19/23 07:44
Absolute Neuts (auto) 17.4 10^3/uL (1.4-6.5) H 09/14/23 03:04
PT 17.8 Sec (11.4-14.6) H 09/13/23 03:17
INR 1.49 09/13/23 03:17
APTT 52.8 Sec (23.4-35.0) H 09/19/23 07:44
Sodium 134 mmol/L (135-145) L 09/19/23 07:44
Potassium 3.0 mmol/L (3.5-5.1) L 09/19/23 07:44
Chloride 100 mmol/L (98-107) 09/19/23 07:44
Carbon Dioxide 30 mmol/L (22-30) 09/19/23 07:44
BUN 19 mg/dl (9-20) 09/19/23 07:44
Creatinine 0.8 mg/dL (0.7-1.3) 09/19/23 07:44
Calcium 7.0 mg/dl (8.4-10.2) L 09/19/23 07:44
Total Bilirubin 1.6 mg/dl (0.2-1.3) H 09/19/23 07:44
AST 81 U/L (17-59) H 09/19/23 07:44
ALT 116 U/L (0-50) H 09/19/23 07:44
Alkaline Phosphatase 130 U/L (38-126) H 09/19/23 07:44
Diagnostic Image Results:
09/17 abd film
Nasogastric tube with tip in stomach.
Intestinal bowel gas pattern suggesting ileus.
09/14/23 CT A/p angio
Impression: Moderate small bowel wall and large bowel wall thickening as described above. Ischemia cannot be excluded. See above.
Free air and free fluid in the abdomen and pelvis likely postsurgical change. New
The patient has had a celiac/SMA bypass graft for SMA occlusion. There is persistent occlusion of one of the right limb and thrombus formation in the proximal [place] SMA. However, the remainder of the graft is patent. This was reviewed with
Vanna and Dr. Ballard at 10:00 AM on 09/14/2023
Moderate bibasilar consolidation. New
Chavez catheter present. New
Mild prostate hypertrophy. Stable
09/12/23 CT angio
1. Complete occlusion of the celiac/SMA bypass graft as described.
2. Mild bilateral lower lobe infectious/inflammatory bronchiolitis change.
3. Mild T12 and L4 superior endplate compression deformities, new from 01/20/2023 and age indeterminate. Recommend correlation for any point tenderness in these regions.
Prior GI Procedures:
EGD: 08/2021 garry normal esophagus and duodenum, gastritis
Colonoscopy: 08/2021 garry � � � - No explanation of patient's abdominal pain on this
�� � � � � � � � � � � examination
�� � � � � � � � � � � - Two 2 to 3 mm polyps in the descending colon and in
�� � � � � � � � � � � the cecum, removed with a jumbo cold forceps. Resected
�� � � � � � � � � � � and retrieved.- bx TA polyp
�� � � � � � � � � � � - One 10 mm polyp in the rectum, removed using
�� � � � � � � � � � � injection-lift and a hot snare. Resected and retrieved.
�� � � � � � � � � � � - Non-bleeding internal hemorrhoids.- TV adenoma
Assessment / Plan
-
Pt is a 58yo with hx tobacco abuse/COPD, CAD, UT, Skin CA, mesenteric ischemia with celiac/SMA bypass 2020 after significant wt loss. He was on ASA only as per patient did not tolerate other medication due to bruising but no GI bleed. Pt was
noted with back injury on steroids and NSAIDs then presents to ER 09/11 with severe abdominal pain. CTA on admission with concern for complete occlusion of celiac/SMA graft. Pt was taken to ER 09/12 for exp lap, OSKAR, aortomesenteric bypass
forgarty thrombectomy, mesenteric arteriogram, patch angioplasty of aortomesenteric bypass. Pt has been followed post-op on heparin gtt and noted with ileus with NGT in place/ IV TPN and also with progressive drop in hbg was 17 on admission then
drop to 7.8 09/18 with noted black/burgundy stools. hx EGD: 08/2021 [facility] normal esophagus and duodenum, gastritis. Colonoscopy: 08/2021 [facility]ikov - two 2-3 polyps descending colon and cecum, TA, 10mm polyp rectum TV adenoma.
-anemia with drop in hbg
-black burgundy stools
-Acute mesenteric ischemia secondary to mesenteric bypass thrombosis 09/12 s/p Exploratory laparotomy, lysis of adhesions, aorto-mesenteric bypass Tona thrombectomy, mesenteric arteriogram, patch angioplasty of aorto-mesenteric bypass
-hx of Aorto-mesenteric bypass 05/2021; graft bypass into the celiac and SMA vessels.
- CT-A 09/13 showing patient bypass, concern for bowel ischemia
-thrombocytopenia resolved
-back pain with injury-- NSAID/steroid use prior to admission
other medical problems:
-tobacco abuse
-COPD
-CAD prior UT
-hx DVT
-hx colon polyps
PLAN:
etiology of anemia with black/burgundy stool related to ischemia from occlusion of graft vs less likely but in differential PUD with recent NSAID/steroids use vs other
trend hbg transfuse as needed
monitor stool output
current NGT with greenish less likely UGI bleed- BUN stable at 20
cont to monitor output
if aggressive signs of bleeding consider EGD
cont TPN
remains on heparin gtt
counseled on tobacco abstinence and need for medication compliance
willl follow
-
-
Thank you for consultation and allowing me to participate in the patient's care. Please call the it security consulting director GI physician during the after hours with any questions or concerns.
--- NOTE | 2023-09-19 10:46 | PTCARENOTE ---
Patient PTT resulted as 52.8, contacted Fe CHICAS for vascular; Per Fe CHICAS no change to current heparin dose/rate at this time
[2023-09-19] MEDS: NSS 1000 IV (12:17)
[2023-09-19 12:27] LABS: Glucose - Point of Care 171 mg/dl (70-99)
--- NOTE | 2023-09-19 13:11 | W.PN.INTV ---
Today's Communication / Plan
Recommendations
Transferred to ICU
Transfuse
IV fluids
Pressors if needed
PPI
Consider CT abdomen
Assessment
-
58-year-old man with past medical history noted, admitted to the emergency room with abdominal pain. Found to have bowel ischemia due to occlusion of prior aortic mesenteric bypass. Apparently patient stopped taking Plavix and statin since January
2022. Only on aspirin, emergently taken to the operating room. Transferred to the critical care unit, we were consulted for critical care management.
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
Status post:Exploratory laparotomy, lysis of adhesions, aortomesenteric bypass nick thrombectomy, mesenteric arteriogram, patch angioplasty of aortomesenteric bypass
GI bleed
Anemia due to acute blood loss
Leukocytosis due to mesenteric ischemia
Hyperglycemia
Lactic acidosis
Left flank ecchymosis
Wheezing
Conditions present prior admission:
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
graft bypass into the celiac and SMA vessels.
Tobacco abuse
PFT's 06-19-21 with moderate airflow obstruction with some reversibility postbronchodilator on spirometry.-Not on bronchodilators
Moderate COPD/emphysema-not seen by pulmonary in the outpatient office for
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
History of left gastric anemic DVT status post apixaban 03/2021 post left knee surgery
History lumbar vasectomy
Chronic back pain-recent steroid taper
Plan
Patient with some decompensation requiring critical care management-transferred to ICU for transfusions, close monitoring
Supplemental oxygen as needed
Continue aspiration precautions
Incentive spirometry encouraged
Nebulizers if needed--currently with some wheezing
Postop day 6-exploratory laparotomy, lysis of adhesions, aortomesenteric bypass nick thrombectomy, mesenteric arteriogram, patch angioplasty of aortomesenteric bypass
General surgery following-correspondence reviewed
Vascular surgery following-correspondence reviewed
Antibiotics per surgery-on Zosyn
Pain management-on hydromorphone as needed-appears to be controlled
Neurovascular checks
Heparin drip continues
Abdominal and lumbosacral spine x-rays pending
Follow hemoglobin
Transfuse
GI evaluation-correspondence reviewed-no acute GI intervention recommended at this point
PPI
Consider CT abdomen to rule out retroperitoneal bleed with left flank ecchymosis
Monitor renal function
Continue to replace electrolytes
Previously noted to have some hypoglycemia
Dextrose if needed
Monitor liver functions
Smoking cessation counseling ongoing
DVT prophylaxis-on heparin drip
Nutrition per surgery and vascular surgery
Critical care statement: A total of 40 minutes of critical care time was provided for this patient today. This includes management of unstable vital signs, evaluation of the patient at bedside, reviewing the patient's pertinent medical records
including radiographs, transfusion management, microbiology, laboratory evaluations, and discussion with primary team, consultants, pharmacy, nutrition, physical therapy, case management, charge nurse, critical care nursing, and respiratory therapy.
Subjective Dataa
Subjective Data
Date of Service:
Date of Service: September 19, 2023
Chief Complaint: Treadle Cut Off Saw Operator Follow Up (Status post aortomesenteric bypass occlusion.) and Pulmonary Follow Up
Subjective:
He feels worse today than yesterday, has some shortness of breath, has some wheezing, has increased abdominal pain, nursing is reported Left flank ecchymosis as well
Review of Systems
General: Other (Per HPI)
Objective Data
Data Reviewed
Vital Signs / I&O / Oxygen:
Vital Signs
Temp Pulse Resp BP Pulse Ox
98.6 F 91 23 175/78 93
09/19/23 12:00 09/19/23 12:00 09/19/23 12:00 09/19/23 12:00 09/19/23 12:00
Intake and Output
09/18/23 09/19/23 09/20/23
06:59 06:59 06:59
Intake Total 1815.1 / 1815.1 1780 / 1780
Output Total 3475 / 3475 1550 / 1550
Balance -1659.9 / -1659.9 230 / 230
SaO2 93
Nasal Cannula flow liters per 2
minute
Physical Exam
General: Respiratory Distress (n) and Pain (Abdominal-controlled)
HEENT: Normocephalic, Anicteric and Moist Mucous Membranes
Cardiovascular: Regular Rhythm
Respiratory: Crackles (Rare basilar), Rhonchi (n), Non-Labored Respirations, Accessory Resp Muscle Use (n) and Stridor (n)
GI: Soft, Distended, Other ( incision is intact without hematoma) and Other (Decreased bowel sounds)
Neurology: Awake, Alert and No Motor Deficits
Skin: Warm, Good Color, Cyanosis (n) and Jaundice (n)
Labs/Micro/Reports
Laboratory Results
09/19/23
07:44
APTT 52.8 H
Microbiology
09/12/23 18:05 Blood/Venous Blood Culture - Final
No Growth - Final Report
--- NOTE | 2023-09-19 13:33 | TRANSFER ---
Patient transported to ICU room 1083; Report called to Miquel BARBOSA in ICU
[2023-09-19] MEDS: HEPARIN 25000 UNITS/250 ML IV (15:31)
--- NOTE | 2023-09-19 16:18 | W.PN.SURGUPD ---
Surgical Update
Surgical Update
Patient with drift in Hb and reported heme positive stool. Transferred to ICU. Abd X-ray shows continued distension of the colon, no large volume free air. CTA demonstrates patent SMA bypass, possible distal dissection (subtle). Noted thickening
and inflammation of the transverse colon, small volume free air decreased from CT scan on 09/13. Abdominal exam stable and non-peritoneal. Hemodynamically stable with noted intermittent low grade tachycardia. Afebrile. Lactate 2. Tenuous
situation with likely ischemia to the transverse colon. Recommend continued medical management for now with NPO, IVF, and antibiotics. Will continue to follow closely, may need repeat exploration if does not improve over next 24-48 hours.
--- NOTE | 2023-09-19 16:19 | CM ---
patient with mesenteric ischemia tx to icu.ivf,ppi,pressors if needed.significant abdominal
Plan home vs ip rehab.
--- NOTE | 2023-09-19 16:57 | VATNOTE ---
left ac IV site 18p removed by previous VAT RN. Jerrod applied by that VAT RN due to significant bleeding from site. Attempted to reassess old left AC IV site for further bleeding and PCN, Nelson, stated that prefers I not unwrap site and check @ this
time. Heparin is infusing via new left arm IV site.
--- NOTE | 2023-09-19 17:14 | PTCARENOTE ---
Patient received as a transfer from [address] [place] [address] at 1330 with assessment as noted. During his initial assessment a 20x25 cm left flank ecchymotic was noted. This had not been documented previously and Lety Jarquin (vascular PA) was notified and came to see
the patient. CTA-ABD done and no retroperitoneal bleed was noted. Radiologist discussed results with . No further orders given. 1 liter NSS bolus infusing upon arrival and completed by 1410. The first of 2 units PRBC's that had been ordered
prior to transfer was started at [address] scan. VS stable. Patient continues alert and oriented. C/O generalized ABD pain rated 9/10 with partial relief obtained with PRN Dilaudid 1 mg IV. Afebrile. NSR/Sinius tach on monitor.
Lungs slightly decreased in the bases bilaterally otherwise CTA. Sao2 95% on room air. NPO except for some ice chips. Hypo BS. Right nares [place]-Sump to suction with a small amount of bile green return noted. Had a small liquid black bowel movement
on the commode. Voiding jovani urine. into visit and updated to patient condition. Patient currently in bed with call antonio and telephone in reach.
--- NOTE | 2023-09-19 17:16 | W.PN.UPDATE ---
Update Note
Progress Note Update
CT scan images personally reviewed and discussed with Dr. Mckenzie. Scan also discussed with Dr. Betts.
Scattered foci of air around the SMA graft limb and pancreas - I suspect is related to hemostatic agent around where the SMA limb was manipuated and revised
Small foci of air anterior/posterior to stomach
Inflammatory changes around the T-colon
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 SMA patent
Hepatic limb of bypass occluded (known)
Left rectus hematoma
Patient is in ICU
Repeat labs this afternoon after PRBC
ABX
Close observation
Gen surg following
Ayaz Chavez III, MD
[facility]
[phone] (vmum)
[2023-09-19 17:39] LABS: Lactic Acid 1.7 mmol/L (0.7-2.0)
[2023-09-19 17:54] LABS: Blood Urea Nitrogen 17 mg/dl (9-20); Calcium 6.8 mg/dl (8.4-10.2); Carbon Dioxide 29 mmol/L (22-30); Chloride 102 mmol/L (98-107); Estimated Creatinine Clearance 120 ml/min; Glucose 185 mg/dl (70-99); Phosphorus 1.8 mg/dl (2.5-4.5); Potassium 3.2 mmol/L (3.5-5.1); Sodium 133 mmol/L (135-145); eGFR > 60.00
[2023-09-19 18:10] LABS: Glucose - Point of Care 209 mg/dl (70-99)
[2023-09-19] MEDS: CALCIUM GLUCONATE 290 MG IV (19:26)
[2023-09-19] MEDS: NSS (PRESERVATIVE FREE) IV (21:04)
[2023-09-19] MEDS: VALIUM INJECTION 2 MG IV (21:05)
[2023-09-19] MEDS: Parenteral Nutrition, Central 1920 IV (21:30)
[2023-09-19 21:40] LABS: Beta-2-Glycoprotein I Ab. IgG <10 SGU (<=20); Beta-2-Glycoprotein I Ab. IgM <10 SMU (<=20)
--- NOTE | 2023-09-19 22:30 | PTCARENOTE ---
Pt alert/oriented/cooperative c/o intermittent pain abdomen/back. PRN Dilaudid/Valium as ordered with relief. TMax 100.3 PO. NSR on monitor. IV lines flushed patent. Pulses palpable. GTTs maintained as ordered. Electrolytes repleted. Additional unit
given (ordered on previous shift). Transfused, no s/s adverse reaction. Noted to repeat HGB 2345. Room air, lungs CTA. No sob/distress. RR 18. Right nare DHT LIWS. NPO, ice chips. BM X2 on bedpan, watery. Voiding jovani in urinal. Skin as noted.
Will monitor.
[2023-09-20] VITALS (24 sets, daily range): BP systolic 125–170; BP diastolic 68–104; BMI 25.9
[2023-09-20] MEDS: VALIUM INJECTION 5 MG IV ×4 (00:10→19:37)
[2023-09-20] MEDS: NOVOLOG FLEXPEN-LOW RESISTANCE SC (00:25)
[2023-09-20] MEDS: ZOSYN 50 IV ×2 (00:39→05:42)
[2023-09-20] MEDS: OFIRMEV 100 IV (00:39)
[2023-09-20 01:04] LABS: Glucose - Point of Care 143 mg/dl (70-99)
[2023-09-20 01:05] LABS: Hematocrit 30.4 % (39.0-52.0)
[2023-09-20 01:09] LABS: Hemoglobin 10.5 g/dL (13.0-18.0)
[2023-09-20 01:25] LABS: Beta-2-Glycoprotein I Ab. IgA 10 SAU (<=20)
[2023-09-20 01:27] LABS: Blood Urea Nitrogen 15 mg/dl (9-20); Calcium 7.4 mg/dl (8.4-10.2); Carbon Dioxide 26 mmol/L (22-30); Chloride 108 mmol/L (98-107); Estimated Creatinine Clearance 120 ml/min; Glucose 150 mg/dl (70-99); Potassium 3.7 mmol/L (3.5-5.1); Sodium 135 mmol/L (135-145); eGFR > 60.00
--- NOTE | 2023-09-20 01:30 | PTCARENOTE ---
Pt constantly complaining of pain in abdomen and back, despite Dilaudid and Valium PRN. Additional dose of Valium given along with Ofirmev. Repeat labs sent. Will monitor closely.
[2023-09-20] MEDS: DILAUDID 1 MG IV ×8 (02:06→22:43)
[2023-09-20 02:24] LABS: Phosphatidylserine Ab, IgA 0 APS (0-19); Phosphatidylserine Ab, IgG 1 GPS (0-15); Phosphatidylserine Ab, IgM 0 MPS (0-21)
[2023-09-20 02:56] LABS: Lactic Acid 1.4 mmol/L (0.7-2.0)
[2023-09-20] MEDS: NOVOLOG FLEXPEN-LOW RESISTANCE 1 UNITS SC ×3 (06:01→18:21)
[2023-09-20] MEDS: PROTONIX 100 IV ×2 (06:01→15:00)
[2023-09-20 06:06] LABS: Hematocrit 30.1 % (39.0-52.0); Hemoglobin 10.3 g/dL (13.0-18.0); Mean Corp Hgb Conc. 34.2 g/dL (33.0-37.0); Mean Corpuscular Hgb 30.7 pg (27.0-31.0); Mean Corpuscular Volume 89.9 fL (80.0-94.0); Mean Platelet Volume 13.8 fL (7.4-10.4); Platelet Count 138 10^3/uL (130-400); Red Blood Cell Count 3.35 10^6/uL (4.70-6.10); White Blood Cell Count 24.7 10^3/uL (4.8-10.8)
[2023-09-20 06:11] LABS: Glucose - Point of Care 164 mg/dl (70-99)
[2023-09-20 06:12] LABS: APTT 43.8 Sec (23.4-35.0)
[2023-09-20 06:13] LABS: Lactic Acid 1.8 mmol/L (0.7-2.0)
[2023-09-20 06:19] LABS: Blood Urea Nitrogen 16 mg/dl (9-20); Calcium 7.3 mg/dl (8.4-10.2); Carbon Dioxide 27 mmol/L (22-30); Chloride 109 mmol/L (98-107); Estimated Creatinine Clearance 120 ml/min; Glucose 152 mg/dl (70-99); Phosphorus 2.6 mg/dl (2.5-4.5); Potassium 3.6 mmol/L (3.5-5.1); Sodium 135 mmol/L (135-145); eGFR > 60.00
--- NOTE | 2023-09-20 07:07 | W.PN.INTV ---
Today's Communication / Plan
Recommendations
Antibiotics
Heparin drip
Follow hemoglobin
Transfuse as needed
Close surgical and vascular follow-up in case emergent reexploration needed
Assessment
-
58-year-old man with past medical history noted, admitted to the emergency room with abdominal pain. Found to have bowel ischemia due to occlusion of prior aortic mesenteric bypass. Apparently patient stopped taking Plavix and statin since January
2022. Only on aspirin, emergently taken to the operating room. Transferred to the critical care unit, we were consulted for critical care management.
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
Status post:Exploratory laparotomy, lysis of adhesions, aortomesenteric bypass nick thrombectomy, mesenteric arteriogram, patch angioplasty of aortomesenteric bypass
GI bleed
Anemia due to acute blood loss
Leukocytosis due to mesenteric ischemia
Hyperglycemia
Lactic acidosis
Left flank ecchymosis
Wheezing
Bilateral pleural effusions left greater than right
Conditions present prior admission:
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
graft bypass into the celiac and SMA vessels.
Tobacco abuse
PFT's 06-19-21 with moderate airflow obstruction with some reversibility postbronchodilator on spirometry.-Not on bronchodilators
Moderate COPD/emphysema-not seen by pulmonary in the outpatient office for
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
History of left gastric anemic DVT status post apixaban 03/2021 post left knee surgery
History lumbar vasectomy
Chronic back pain-recent steroid taper
Plan
Patient remains critically ill with need for transfusions, tenuous abdominal exam potentially requiring emergent reexploration
Continue supplemental oxygen
Continue aspiration precautions per protocol
Incentive spirometry encouraged
Nebulizers as needed-intermittently with wheezing-currently none
Postop day 7-exploratory laparotomy, lysis of adhesions, aortomesenteric bypass nick thrombectomy, mesenteric arteriogram, patch angioplasty of aortomesenteric bypass
General surgery following-correspondence reviewed-may be a need for reexploration
Vascular surgery following-correspondence reviewed-ongoing mesenteric ischemia
Antibiotics per surgery-on Zosyn-changed to meropenem
Check cultures
Infectious disease consultation noted
Pain management-on hydromorphone as needed-appears to be controlled
Neurovascular checks
Heparin drip continues
Follow hemoglobin
Transfuse as needed
GI evaluation-correspondence reviewed-no acute GI intervention recommended at this point
PPI
CT abdomen 09/20/2023-lung bases reveal bilateral pleural effusions left greater than right, no findings of acute retroperitoneal hemorrhage, increasing free fluid throughout the abdomen and pelvis, mesenteric hematomas suspected, transverse colon
ischemia suspected, areas of free air noted, findings concerning for SMA dissection distally, transverse abdominis intramuscular hematoma slightly increased, increased bilateral flank edema
Follow renal function
Continue to replace electrolytes
Previously noted to have some hypoglycemia
Dextrose if needed
Follow liver functions
Smoking cessation counseling ongoing
DVT prophylaxis-on heparin drip
Nutrition per surgery and vascular surgery
Dr. Raman reviewed with ex- at the bedside with patient's permission-reviewed case 09/20/2023
Critical care statement: A total of 42 minutes of critical care time was provided for this patient today. This includes management of unstable vital signs, evaluation of the patient at bedside, reviewing the patient's pertinent medical records
including radiographs, transfusion management, microbiology, laboratory evaluations, and discussion with primary team, consultants, pharmacy, nutrition, physical therapy, case management, charge nurse, critical care nursing, and respiratory therapy.
Subjective Dataa
Subjective Data
Date of Service:
Date of Service: September 20, 2023
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
Subjective:
Still feels 'lousy' with abdominal and back pain, no shortness of breath, chest congestion, productive cough
Review of Systems
General: Other (Per HPI)
Objective Data
Data Reviewed
Vital Signs / I&O / Oxygen:
Vital Signs
Temp Pulse Resp BP Pulse Ox
99.5 F 78 16 141/85 96
09/20/23 06:27 09/20/23 06:00 09/20/23 06:00 09/20/23 06:00 09/20/23 06:00
Intake and Output
09/19/23 09/20/23 09/21/23
06:59 06:59 06:59
Intake Total 1780 / 1780 4024 / 4024
Output Total 1550 / 1550 1500 / 1500
Balance 230 / 230 2524 / 2524
SaO2 96
Nasal Cannula flow liters per 2
minute
Physical Exam
General: Respiratory Distress (n) and Pain (Abdominal-and back)
HEENT: Normocephalic, Anicteric and Moist Mucous Membranes
Cardiovascular: Regular Rhythm
Respiratory: Crackles (Rare basilar), Rhonchi (n), Non-Labored Respirations, Accessory Resp Muscle Use (n) and Stridor (n)
GI: Soft, Distended, Other ( incision is intact without hematoma) and Other (Decreased bowel sounds)
Neurology: Awake, Alert and No Motor Deficits
Skin: Warm, Good Color, Cyanosis (n) and Jaundice (n)
Labs/Micro/Reports
Lab Data
09/20/23 05:42
09/20/23 05:42
Laboratory Results
09/19/23 09/20/23
07:44 05:51
APTT 52.8 H 43.8 H
Microbiology
09/12/23 18:05 Blood/Venous Blood Culture - Final
No Growth - Final Report
[2023-09-20] MEDS: ASPIRIN 300 MG RECTAL (08:24)
[2023-09-20] MEDS: NSS (PRESERVATIVE FREE) IV ×2 (08:26→21:13)
--- NOTE | 2023-09-20 08:42 | W.PN.VS ---
Today's Communication / Plan
-
Patient seen and examined at bedside with Dr. Concetta Richardson, below plan reviewed with attending.
Assessment/Plan
-
POD 7 Exploratory laparotomy, lysis of adhesions, aortomesenteric bypass nick thrombectomy, mesenteric arteriogram, patch angioplasty of aortomesenteric bypass
Plan:
-Continue standing heparin infusion, given tenuous situation and concern for GI bleed will continue to maintain non-titrated heparin infusion
-Continue PRN pain medications
-Continue NG tube, n.p.o., appreciate neurosurgery recommendations
-Continue TPN per general surgery
-Leukocytosis with mild increase from 20.1 to 24.7, continue Zosyn, general surgery following if need for possible reexploration, appreciate consult recommendations
-Continue close monitoring with repeat labs
Subjective Data
-
Date of Service: September 20, 2023
Patient seen and examined at bedside, continues to report abdominal and back pain that is subsided with as needed pain medication. Denies nausea, vomiting, fever, and chills. 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
is color blind. Does report flatus with bowel movement. Endorses multiple episodes of urinating overnight.
Objective Data
-
Vital Signs
Temp Pulse Resp BP Pulse Ox
97.6 F 81 21 135/71 96
09/20/23 08:13 09/20/23 07:00 09/20/23 07:00 09/20/23 07:00 09/20/23 07:00
Intake and Output
09/19/23 09/20/23 09/21/23
06:59 06:59 06:59
Intake Total 1780 / 1780 4024 / 4126 102 / 102
Output Total 1550 / 1550 1500 / 1500
Balance 230 / 230 2524 / 2626 102 / 102
Intake:
Oral fluids 60 / 60
IV fluids (Total) 920 / 920 1374 / 1396
D5/0.45%NaCl 1,000 ml @ 80 mls/ 800 / 800
hr IV .[id number] [facility] Rx#:[id number]
Heparin 120 / 120 204 / 216
Protonix 170 / 180 10
nss 1000 / 1000
IV piggybacks 650 / 650 790 / 790
TPN/PPN 1360 / 1440 80 / 80
Amount instilled into GI Tube ( 150 / 150
Total)
[place] Sump 150 / 150
Blood Product Amount Infused ( 500 / 500
mL)
Packed Rbc Leukoreduced Unit 250 / 250
[id number]
Packed Rbc Leukoreduced Unit 250 / 250
[id number]
Output:
Gastrointestinal tube output ( 925 / 925 250 / 250
Total)
[place] Sump 925 / 925 250 / 250
Urine, Voided 625 / 625 1250 / 1250
Lab Results
09/20/23 05:42
09/20/23 05:42
Calcium 7.3 mg/dl (8.4-10.2) L 09/20/23 05:42
Phosphorus 2.6 mg/dl (2.5-4.5) 09/20/23 05:42
Magnesium 2.0 mg/dl (1.6-2.3) 09/20/23 05:42
Total Bilirubin 1.6 mg/dl (0.2-1.3) H 09/19/23 07:44
Direct Bilirubin Cancelled 09/15/23 18:00
AST 81 U/L (17-59) H 09/19/23 07:44
ALT 116 U/L (0-50) H 09/19/23 07:44
Alkaline Phosphatase 130 U/L (38-126) H 09/19/23 07:44
Total Protein 3.8 g/dl (6.3-8.2) L 09/19/23 07:44
Albumin 1.9 g/dl (3.5-5.0) L 09/19/23 07:44
Physical Exam
-
AAOx3
No tachypnea on room air
Diffusely tender, mild distension, soft, nonperitoneal
Abdominal christin CDI and well-approximated, dressing CDI, NGT with bilious output
Bilateral feet warm
--- NOTE | 2023-09-20 08:53 | PTCARENOTE ---
recd pt handoff at bedside, heparin, protonix and TPN infusing. pleasant, flat, support given. requested and recd pain med, see MAR, rated pain t/o abdomen and back, unchanged, 03/09. NG good placement, taking ice chips as ordered. call antonio in
reach. visitor bedside, updated.
--- NOTE | 2023-09-20 09:03 | W.PN.HOSP.TC ---
Addendum entered and electronically signed by Abraham Jose MD 09/20/23 18:10:
Abnormal LFTs-suspect secondary ischemia -improving
Original Note:
Today's Communication/Plan
-
Change antibiotics. Consult ID
Start on IV Lasix and follow I&O's. Check an echocardiogram.
TPN per surgery
Assessment / Plan
Assessment / Plan
Assessment:
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
- s/p Exploratory laparotomy, lysis of adhesions, aorto-mesenteric bypass Tona thrombectomy, mesenteric arteriogram, patch angioplasty of aorto-mesenteric bypass 09/12
- CT-A 09/13 showing patient bypass, concern for bowel ischemia
- With persistent abdominal pain and drop in hemoglobin repeat CT abdomen pelvis angiogram was done which was markedly abnormal. Vascular, general surgery and radiology input regarding the abnormal findings noted.
-There is small bowel and large bowel wall thickening. This concerning for ischemia particularly in the transverse colon. Celiac axis/SMA bypass graft similar to previous exam. Comments about the free air in the abdomen by vascular noted. Plan
is for continued monitoring and possibly exploratory laparotomy depending on his progression.
- continue IV Heparin per vascular protocol
- Dilaudid for pain control
- BCX neg
-With rising white count, and small collections of intermediate density throughout the mesentery which radiologically concerning for mesenteric hematoma but cannot clinically rule out infectious collection. Changed to meropenem and consult ID
Hematology input about thrombophilia assessments noted - transition into DOAC once off of IV heparin and follow with her in offfice for work up.
Anemia -moderate-related to acute blood loss anemia. Slow Drop in HH . He had small amounts of dark/black/red blood per rectum yesterday. His NG tube aspirate was dark but today much clearer. No retroperitoneal hemorrhage but there are concerns
about mesenteric hematoma and left transverse abdominis intramuscular hematoma which could be playing a role in anemia. Hemodynamically stable. No prior history of peptic ulcer disease. S/p 2 units of PRBC transfusion with improved H&H. Follow
H&H closely and continue with Protonix twice a day. GI input noted.
Chronic back pain-recent steroid taper. Continued mid back pain which is a equally troubling. No sciatica . plain xrays show loss of height of superior endplate t12,l4 . Pt had pull while lifting something at home but no fall or trauma .cw
symptomatic tx -pain med and muscle relaxants.
Hyperglycemia
No hx of DM
HbA1C 5.8
Tobacco abuse- remains actively smoking
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
Bilateral pleural effusion with underlying bilateral consolidation right more than left-suspect fluid shifts ;wt is up . Check BNP and ECHO . Will give a dose of lasix and follow I/O. ICS
CAD s/p prior hx of NSTEMI -asymptomatic without chest pain. On aspirin at home. Currently on IV heparin.
Hx of DVT status post apixaban 03/2021 post left knee surgery
Nutrition-cw TPN.
DW Vascular surgery
DVT ppx: IV Heparin
Code: Full
DW WINDOWS SYSTEMS ADMIN
DW CRS
Total time spent on today's encounter was 52 minutes which included time spent in counseling the patient regarding diagnosis and treatment plan as listed above, goals of care, and symptom management. Case was discussed with nursing staff,
specialists, All labs and imaging personally reviewed by me. Remainder the time spent in detailed review of previous records, lab data, imaging, and other medical provider documentation.
Anticipated Discharge: > 48 hours
Subjective/Interval History
-
Date of Service: September 20, 2023
Persistent abdominal pain requiring IV pain medication.
NG tube in place. Denies any nausea.
Not short of breath at rest but is noticing it when he moves around. Not on oxygen.
Objective Data
-
Labs:
Laboratory Results
09/20/23 09/20/23 09/20/23
00:49 01:30 05:42
WBC 24.7 H
Hgb 10.5 L D Cancelled 10.3 L
Hct 30.4 L Cancelled 30.1 L
Plt Count 138
APTT
Sodium 135 135
Potassium 3.7 3.6
Chloride 108 H 109 H
Carbon Dioxide 26 27
BUN 15 16
Creatinine 0.7 0.7
Glucose 150 H 152 H
Calcium 7.4 L 7.3 L
09/20/23
05:51
WBC
Hgb
Hct
Plt Count
APTT 43.8 H
Sodium
Potassium
Chloride
Carbon Dioxide
BUN
Creatinine
Glucose
Calcium
Vital Signs:
Vital Signs
Temp Pulse Resp BP Pulse Ox
97.6 F 80 17 151/73 96
09/20/23 08:13 09/20/23 08:00 09/20/23 08:00 09/20/23 08:00 09/20/23 08:00
I&O
09/19/23 09/20/23 09/21/23
06:59 06:59 06:59
Intake Total 1780 / 1780 4024 / 4126 234 / 234
Output Total 1550 / 1550 1500 / 1500
Balance 230 / 230 2524 / 2626 234 / 234
Review of Systems
-
Constitutional: Denies Fever or Chills
EENT: Denies Sore Throat
Respiratory: Denies Cough
Cardiac: Denies Chest Pain
Neuro: Denies Dizzy
Physical Exam
-
General: No Apparent Distress
HEENT: Moist Mucous Membranes
Respiratory: Clear to Auscultation (Anterio-laterally)
Cardiac: Regular Rhythm and S1/S2
GI: Soft, Normal Bowel Sounds and Tender (no rebound or guarding)
Neuro: AO x 3
Psych: Calm; Negative Confused
Data Reviewed
-
Labs: Labs Reviewed by me
--- NOTE | 2023-09-20 09:21 | CON.ID ---
Consultation
-
Date/Time Consultation Requested: 09/20/23 8:50
Date/Time Consultation Performed: 09/20/23 9:22
Requesting Provider: Dr Jose
Performing Provider: Dr Marks
Reason for Consultation: intraabdominal fluid collections
Chief Complaint / Past History
Chief Complaint
abdominal pain
History of Present Illness
Mr Barros is a 58 year old female with past medical history including Aorto-mesenteric bypass 06/25/2021, graft bypass into the celiac and SMA vessels, current tobacco abuse. He was discharged with plavix and xarelto. He self discontinued
plavix and statin jan 2023, started taking asa. Developed severe abdominal pain, nausea, hypertension and presented here 09/11. Also of note with recent course of steroids for back pain. He presented here and was found to have complete occlusion
of the bypass graft. Taken to the OR emergently and underwent exploratory laparotomy and underwent lysis of additions, thrombectomy of SMA/SMA graft bypass and patch angioplasty of SMA graft. Procedure uncomplicated. He has been afebrile until
yesterday when Tmax 100.4, bp stable, patient has had persistent leukocytosis most recently uptrending over the last 3 days, hgb 10.3, plt 138, last diff was 4 days ago at that time no eosinophilia there was a left shift, cr 0.7, a1c 5.8, yesterday
1 bili 1.6, ast 81, alt 116, alk phos 130, 09/18 CT a/p angio w/wo IV: free fluid in the abdomen, small collections throughout the mesentary, small bowel and large bowel wall thickening - concern for ischemia - transverse colon with increased
stranding, concern for distal SMA dissection, lumbar spine xray: DJD. Additional imaging reviewed. Most recent CXR 09/17 nno infiltrates, perhaps soem cephalization on my read.
Past History
Additional Past Medical History:
Mesenteric Ischemia, Coronary Vasospasm, LLE DVT
Additional Past Surgical History:
Supraceliac aorta to hepatic artery/superior mesenteric artery bypass�, Left Knee Arthroscopy, Lumbar Discectomy, Hemorrhoidectomy
Allergy History:
No Known Allergies Allergy (Verified 09/12/23 17:54)
Medications Reviewed: Yes
Social History
Tobacco: Smoker
Alcohol: None
Employment: Employed
Family History
Family History: Not Pertinent
Review of Systems
Review of Systems
General: Negative Fever or Chills
All systems: All other systems were reviewed and were negative
Vital Signs
Temp Pulse Resp BP Pulse Ox
97.6 F 80 17 151/73 96
09/20/23 08:13 09/20/23 08:00 09/20/23 08:00 09/20/23 08:00 09/20/23 08:00
Physical Exam
Physical Exam
Constitutional: No Acute Distress
Cardiovascular: Regular Rate and S1/S2; Negative Murmur or Rub
Pulmonary: Clear and Symmetric; Negative Wheezes, Rales or Rhonchi
Gastrointestinal: Soft, Non Tender, Non Distended, Normal Bowel Sounds and Other (no peritoneal signs)
Skin: Warm and Dry; Negative Rash or Jaundice
Lab / Diagnostic Study Results
09/20/23 05:42
09/20/23 05:42
Abs Immat Gran (auto) 0.1 10^3/uL (0-0.05) H 09/14/23 03:04
Absolute Neuts (auto) 17.4 10^3/uL (1.4-6.5) H 09/14/23 03:04
Absolute Lymphs (auto) 1.3 10^3/uL (1.2-3.4) 09/14/23 03:04
Absolute Monos (auto) 1.5 10^3/uL (0.1-0.6) H 09/14/23 03:04
Absolute Basos (auto) 0.1 10^3/uL (0-0.2) 09/14/23 03:04
Total Counted 100 09/16/23 03:56
Immature Gran % 0.5 % (0-0.5) 09/14/23 03:04
Neutrophils % 83.6 % (42.2-75.2) H 09/14/23 03:04
Lymphocytes % 6.4 % (20.5-51.1) L 09/14/23 03:04
Monocytes % 7.4 % (1.7-9.3) 09/14/23 03:04
Eosinophils % 1.7 % (0-6) 09/14/23 03:04
Basophils % 0.4 % (0-2) 09/14/23 03:04
Abs Neuts (Manual) 18.3 10^3/uL (1.4-6.5) H 09/16/23 03:56
Segmented Neutrophils 69 % (42-75) 09/16/23 03:56
Band Neutrophils 14 % (0-3) H D 09/16/23 03:56
Lymphocytes (Manual) 10 % (20-51) L 09/16/23 03:56
Eosinophils (Manual) 1 % (0-6) 09/16/23 03:56
PT 17.8 Sec (11.4-14.6) H 09/13/23 03:17
INR 1.49 09/13/23 03:17
Lactic Acid 1.8 mmol/L (0.7-2.0) 09/20/23 05:42
Microbiology Results
Micro:
09/12/23 18:05 Blood Culture - Final
Blood/Venous No Growth - Final Report
09/12/23 18:05 Influenza Types A & B (ALAN) - Final
Nasal Swab Negative for Influenza A & B, NAAT
Negative results must be combined with clinical observations
and patient history.
Nucleic Acid Amplification test (NAAT)performed on the
[employer] platform.
Assessment / Plan
Suspected developing secondary peritonitis
Leukocytosis
Total SMA graft occlusion s/p thrombectomy/patch; Acute mesenteric ischemia - ongoing
Resolving Shock Liver
Noncompliance
- blood cultures x2
- no abdominal drains at this time; no definite organized collections
- cbc with diff in the AM
- add micafungin, vancomycin
- continue meropenem (switched from zosyn today)
- if taken to the OR please send cultures, consider drain placement
- follow clinically
Prognosis guarde
Care Review
Plan reviewed with: Physician (Dr Jose - [place])
--- NOTE | 2023-09-20 09:54 | PHA.VAN.IN ---
Assessment
- Assessment
Renal Function: Appears similar to baseline
Maximum Temperature: 100.4F
Minimum Temperature: 97.6F
Concomitant Antimicrobials: MICAFUNGIN, MEROPENEM
AUC Dosing Plan
- Dosing Variables
Dosing Weight (kg): 84.2
Dosing CrCl (ml/min): 100
Vd coefficient (L/kg): 0.7
- Empiric Dosing
Initial / Loading Dose: 1250MG
Maintenance Regimen: 1250MG Q12H
Estimated AUC (mcg*h/mL): 517
Estimated Peak (mcg*h/mL): 32.6
Estimated Trough (mcg/ml): 13
Estimated Half Life (H): 8
- Monitoring
No levels ordered at this time: CONSIDER AT STEADY STATE
Pharmacokinetics Vancomycin I
- -
Patient Age: 58
Patient Sex: Male ()
Vancomycin Day #: 1
Indication: Gi / Intra-Abdominal
Requesting Provider: DOTTIE
Pertinent Antimicrobial Allergies:
NKDA
Height / Weight:
Height 5 ft 11 in
Actual Weight 84.2 kg
IBW in k.3
- Vital Signs / Lab Results
Temp Pulse Resp BP Pulse Ox
97.6 F 80 17 151/73 96
09/20/23 08:13 09/20/23 08:00 09/20/23 08:00 09/20/23 08:00 09/20/23 08:00
Lab Results - Hematology
09/18/23 09/19/23 09/19/23
06:15 07:44 15:45
WBC 15.8 H 20.1 H Cancelled
09/20/23
05:42
WBC 24.7 H
Lab Results - Chemistry
09/18/23 09/19/23 09/19/23
06:15 07:44 17:08
BUN 20 19 17
Creatinine 0.9 0.8 0.7
Estimated Creat Clear 93 105 120
Albumin 1.9 L
09/20/23 09/20/23
00:49 05:42
BUN 15 16
Creatinine 0.7 0.7
Estimated Creat Clear 120 120
Albumin
09/19/23 09/19/23 09/19/23
10:37 17:00 17:08
Lactic Acid 2.0 Cancelled 1.7
09/19/23 09/20/23 09/20/23
23:00 02:07 05:42
Lactic Acid Cancelled 1.4 1.8
[2023-09-20] MEDS: LASIX 40 MG IV (10:33)
[2023-09-20] MEDS: STERILE WATER FOR INJECTION 10 ML IV ×3 (10:35→21:12)
[2023-09-20] MEDS: MERREM 500 MG IV ×3 (10:35→21:12)
[2023-09-20 10:46] LABS: NT-proBNP 1080 pg/ml
[2023-09-20] MEDS: MYCAMINE 105 MG IV (10:50)
[2023-09-20] MEDS: HEPARIN 25000 UNITS/250 ML IV (11:32)
[2023-09-20] MEDS: VANCOCIN 275 MG IV ×2 (11:35→17:25)
[2023-09-20 11:40] LABS: Glucose - Point of Care 195 mg/dl (70-99)
--- NOTE | 2023-09-20 12:12 | W.PN.GS2 ---
Addendum entered and electronically signed by Ever Andrews MD 09/20/23 16:23:
The bowel movements were not bloody, they were heme positive.
Original Note:
Today's Communication / Plan
-
Plan:
-- Continue TPN
-- Maintain NGT to LIWS
-- Abx as per ID
-- Heparin drip per Vascular
Assessment / Plan
-
This is a 58-year-old male smoker who presented 09/13/2023 with abdominal pain found to have mesenteric ischemia,
POD#7 s/p exploratory laparotomy, SMA and aorta mesenteric thrombectomy with patch angioplasty (vascular)
Afebrile, tachycardia resolved
abdominal exam stable, WBC elevated to 24.7; lactate normal
NGT with less output (250), bilious
CTA 09/19/23 demonstrates patent SMA bypass, possible distal dissection (subtle).� Noted thickening and inflammation of the transverse colon, small volume free air decreased from CT scan on 09/13.�
I reviewed the management options from a general surgery perspective, i.e. a laparotomy and resection of any ischemic bowel with a probable second-look operation, and most likely an ostomy. Without surgery there is a risk of progression of the
ischemia with perforation. I reviewed the risks and benefits of each with the patient and his ex- and at the present time he wants to continue with nonoperative management.
Subjective Data
-
Date of Service: September 20, 2023
Still with abdominal pain requiring IV narcotics. He is passing flatus and had 4 small bloody bowel movements overnight.
Objective Data
-
Intake and Output
09/19/23 09/20/23 09/21/23
06:59 06:59 06:59
Intake Total 1780 / 1780 4024 / 4126 650 / 650
Output Total 1550 / 1550 1500 / 1500 800 / 800
Balance 230 / 230 2524 / 2626 -150 / -150
Intake:
Oral fluids 60 / 60
IV fluids (Total) 920 / 920 1374 / 1396 110 / 110
D5/0.45%NaCl 1,000 ml @ 80 mls/ 800 / 800
hr IV .[id number] [facility] Rx#:[id number]
Heparin 120 / 120 204 / 216 60 / 60
Protonix 170 / 180 50 / 50
nss 1000 / 1000
IV piggybacks 650 / 650 790 / 790 110 / 110
TPN/PPN 1360 / 1440 400 / 400
Amount instilled into GI Tube ( 150 / 150 30 / 30
Total)
[place] Sump 150 / 150 30 / 30
Blood Product Amount Infused ( 500 / 500
mL)
Packed Rbc Leukoreduced Unit 250 / 250
[id number]
Packed Rbc Leukoreduced Unit 250 / 250
[id number]
Output:
Gastrointestinal tube output ( 925 / 925 250 / 250
Total)
[place] Sump 925 / 925 250 / 250
Urine, Voided 625 / 625 1250 / 1250 800 / 800
Other:
How many times incontinent 1
SATURATED amount urine
Vital Signs
Temp Pulse Resp BP Pulse Ox
97.6 F 95 24 155/81 95
09/20/23 08:13 09/20/23 11:00 09/20/23 11:00 09/20/23 11:00 09/20/23 11:00
Lab Results
09/20/23 05:42
09/20/23 05:42
Calcium 7.3 mg/dl (8.4-10.2) L 09/20/23 05:42
Phosphorus 2.6 mg/dl (2.5-4.5) 09/20/23 05:42
Magnesium 2.0 mg/dl (1.6-2.3) 09/20/23 05:42
Total Bilirubin 1.6 mg/dl (0.2-1.3) H 09/19/23 07:44
Direct Bilirubin Cancelled 09/15/23 18:00
AST 81 U/L (17-59) H 09/19/23 07:44
ALT 116 U/L (0-50) H 09/19/23 07:44
Alkaline Phosphatase 130 U/L (38-126) H 09/19/23 07:44
Total Protein 3.8 g/dl (6.3-8.2) L 09/19/23 07:44
Albumin 1.9 g/dl (3.5-5.0) L 09/19/23 07:44
Physical Exam
-
NAD
NGT in place
Abd: distended with some tympany; tender more near the incision
--- NOTE | 2023-09-20 13:15 | PTCARENOTE ---
resting when undisturbed, pain continues, using IS with encouragement, discussed timing of getting OOB, pt is willing 'but not now'. Med as noted, call antonio in reach. urine output robust after lasix dose.
--- NOTE | 2023-09-20 14:21 | PTCARENOTE ---
OOB to chair, tolerated well.
--- NOTE | 2023-09-20 15:03 | PTCARENOTE ---
while OOB in chair, sudden urge for BM, incont mod amt dark brown burgundy in chair, cleaned, back to bed, med as noted for 10 abd/back pain.
[2023-09-20 18:36] LABS: Glucose - Point of Care 179 mg/dl (70-99)
--- NOTE | 2023-09-20 18:38 | PTCARENOTE ---
I/O tallied, no other change, much less NG drainage than in previous days, taking ice chips, med for pain, positioned for comfort.
--- NOTE | 2023-09-20 21:00 | PTCARENOTE ---
Received pt resting in bed, AAOx3. BOB but weak. Complaints of abdominal and back tightness pain 8-03/09. Valium and extra dose of dilaudid given. SR/ST on tele, HR 90-100s. BP 130s-140s/70s. Afebrile. On RA, lungs dim with exp wheeze L anterior.
Shallow breaths. Deep breathing encouraged. Abdomen distended, full. Midline incision with christin, TEAM ASSISTANT, ecchymosis noted around incision and on L flank- outlined to monitor. R NG to suction. Irrigated as ordered. NPO except chips. No N/V. Using
urinal, jovani urine. R PICC with TPN and protonix gtt. L wrist with heparin gtt as ordered. Monitoring closely
[2023-09-20] MEDS: Parenteral Nutrition, Central 1920 IV (21:10)
[2023-09-21] VITALS (21 sets, daily range): BP systolic 88–157; BP diastolic 63–107; BMI 26.5
[2023-09-21] MEDS: NOVOLOG FLEXPEN-LOW RESISTANCE 2 UNITS SC ×2 (00:12→05:50)
[2023-09-21 00:22] LABS: Glucose - Point of Care 203 mg/dl (70-99)
--- NOTE | 2023-09-21 00:42 | PTCARENOTE ---
~0, noted pt. telemetry leads off. Went in to fix leads and found pt. standing at the side of the bed leaning on the side table. Pt. had put himself on bed [place] but spilled it in the bed so was trying to get cleaned off. Got pt. back into bed
right away and bathed him. Educated pt on importance of calling for help to avoid injury. Pt expressed understanding. Bed alarm placed on. Pain meds given for 9/10 pain again. No other changes
[2023-09-21] MEDS: PROTONIX 100 IV ×3 (00:50→22:57)
[2023-09-21] MEDS: DILAUDID 1 MG IV ×4 (01:59→12:24)
[2023-09-21] MEDS: VALIUM INJECTION 5 MG IV ×2 (03:34→10:43)
[2023-09-21] MEDS: STERILE WATER FOR INJECTION 10 ML IV ×4 (03:35→21:35)
[2023-09-21] MEDS: MERREM 500 MG IV ×4 (03:35→21:35)
[2023-09-21 04:04] LABS: % Basophils 0.8 % (0-2); % Eosinophils 0.7 % (0-6); % Immature Granulocytes 3.5 % (0-0.5); % Lymphocytes 7.4 % (20.5-51.1); % Monocytes 5.8 % (1.7-9.3); % Neutrophils 81.8 % (42.2-75.2); Absolute Basophils 0.2 10^3/uL (0-0.2); Absolute Eosinophils 0.2 10^3/uL (0-0.7); Absolute Lymphocytes 2.1 10^3/uL (1.2-3.4); Absolute Monocytes 1.7 10^3/uL (0.1-0.6); Absolute Neutrophils 23.6 10^3/uL (1.4-6.5); Hemoglobin 10.1 g/dL (13.0-18.0); Mean Corp Hgb Conc. 34.8 g/dL (33.0-37.0); Mean Corpuscular Hgb 31.3 pg (27.0-31.0); Mean Corpuscular Volume 89.8 fL (80.0-94.0); Nucleated Red Blood Cells % 4.4 % (-); Platelet Count 178 10^3/uL (130-400); Red Blood Cell Count 3.23 10^6/uL (4.70-6.10); Red Cell Dist. Width 15.3 % (11.5-14.5); White Blood Cell Count 28.9 10^3/uL (4.8-10.8)
[2023-09-21 04:13] LABS: APTT 33.5 Sec (23.4-35.0)
[2023-09-21 04:25] LABS: Blood Urea Nitrogen 16 mg/dl (9-20); Calcium 7.2 mg/dl (8.4-10.2); Carbon Dioxide 27 mmol/L (22-30); Chloride 105 mmol/L (98-107); Estimated Creatinine Clearance 120 ml/min; Glucose 186 mg/dl (70-99); Magnesium 1.9 mg/dl (1.6-2.3); Phosphorus 2.4 mg/dl (2.5-4.5); Potassium 3.7 mmol/L (3.5-5.1); Sodium 133 mmol/L (135-145); eGFR > 60.00
[2023-09-21] MEDS: VANCOCIN 275 MG IV ×2 (05:23→17:59)
[2023-09-21 06:00] LABS: Glucose - Point of Care 202 mg/dl (70-99)
[2023-09-21] MEDS: CALCIUM GLUCONATE 100 IV (06:25)
[2023-09-21] MEDS: LASIX 40 MG IV (07:46)
[2023-09-21] MEDS: ASPIRIN 300 MG RECTAL (07:46)
--- NOTE | 2023-09-21 07:47 | W.PN.INTV ---
Today's Communication / Plan
Recommendations
Analgesia
Surgical reexploration and resection of severely ischemic/ bowel-reviewed with Dr. Andrews
Follow hemoglobin
Transfuse as needed
Prognosis unfortunately extremely guarded
Assessment
-
58-year-old man with past medical history noted, admitted to the emergency room with abdominal pain. Found to have bowel ischemia due to occlusion of prior aortic mesenteric bypass. Apparently patient stopped taking Plavix and statin since January
2022. Only on aspirin, emergently taken to the operating room. Transferred to the critical care unit, we were consulted for critical care management.
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
Status post:Exploratory laparotomy, lysis of adhesions, aortomesenteric bypass nick thrombectomy, mesenteric arteriogram, patch angioplasty of aortomesenteric bypass
GI bleed
Anemia due to acute blood loss
Leukocytosis due to mesenteric ischemia
Hyperglycemia
Lactic acidosis
Left flank ecchymosis
Wheezing
Bilateral pleural effusions left greater than right
Conditions present prior admission:
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
graft bypass into the celiac and SMA vessels.
Tobacco abuse
PFT's 06-19-21 with moderate airflow obstruction with some reversibility postbronchodilator on spirometry.-Not on bronchodilators
Moderate COPD/emphysema-not seen by pulmonary in the outpatient office for
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
History of left gastric anemic DVT status post apixaban 03/2021 post left knee surgery
History lumbar vasectomy
Chronic back pain-recent steroid taper
Plan
Patient continues to be critica with need for transfusions, tenuous abdominal exam likely requiring emergent reexploration/resection of ischemic bowel
Supplemental oxygen as needed
Aspiration precautions
Incentive spirometry encouraged
Nebulizers as needed-intermittently with wheezing-currently resolved
Postop day 8-exploratory laparotomy, lysis of adhesions, aortomesenteric bypass nick thrombectomy, mesenteric arteriogram, patch angioplasty of aortomesenteric bypass
General surgery following-correspondence reviewed-may be a need for reexploration-Dr. Raman reviewed with Dr. Andrews-going to surgery 09/21/2023 for probable extensive bowel resection, prognosis extremely guarded
Vascular surgery following-correspondence reviewed-ongoing mesenteric ischemia
Antibiotics per surgery-was on Zosyn-changed to meropenem
Follow cultures
Infectious disease consultation noted-correspondence reviewed
Pain management-on hydromorphone as needed-appears to be controlled
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
Neurovascular checks
Heparin drip continues
Monitor hemoglobin
Transfuse as needed
GI evaluation-correspondence reviewed-no acute GI intervention recommended at this point
PPI continues
Note: CT abdomen 09/20/2023-lung bases reveal bilateral pleural effusions left greater than right, no findings of acute retroperitoneal hemorrhage, increasing free fluid throughout the abdomen and pelvis, mesenteric hematomas suspected, transverse
colon ischemia suspected, areas of free air noted, findings concerning for SMA dissection distally, transverse abdominis intramuscular hematoma slightly increased, increased bilateral flank edema
Monitor renal function
Replace electrolytes as needed
Previously noted to have some hypoglycemia
Dextrose if needed
On TPN per surgery
Monitor liver functions
Smoking cessation counseling ongoing
DVT prophylaxis-on heparin drip
Nutrition per surgery and vascular surgery
Note: Dr. Raman reviewed with ex- at the bedside with patient's permission-reviewed case 09/20/2023
Critical care statement: A total of 45 minutes of critical care time was provided for this patient today. This includes management of unstable vital signs, evaluation of the patient at bedside, reviewing the patient's pertinent medical records
including radiographs, transfusion management, pressor management, microbiology, laboratory evaluations, and discussion with primary team, consultants, pharmacy, nutrition, physical therapy, case management, charge nurse, critical care nursing, and
respiratory therapy.
Subjective Dataa
Subjective Data
Date of Service:
Date of Service: September 21, 2023
Chief Complaint: Stitchdowns Toe Former Follow Up (Status post aortomesenteric bypass occlusion.) and Pulmonary Follow Up
Subjective:
Continues with significant abdominal pain, no shortness of breath, occasionally wheezing, no chest congestion or productive cough
Review of Systems
General: Other (Per HPI)
Objective Data
Data Reviewed
Vital Signs / I&O / Oxygen:
Vital Signs
Temp Pulse Resp BP Pulse Ox
98.1 F 97 18 153/90 95
09/21/23 07:00 09/21/23 07:00 09/21/23 07:00 09/21/23 07:00 09/21/23 07:17
Intake and Output
09/20/23 09/21/23 09/22/23
06:59 06:59 06:59
Intake Total 4024 / 4126 3271 / 3623 352 / 352
Output Total 1500 / 1500 3025 / 3025
Balance 2524 / 2626 246 / 598 352 / 352
SaO2 95
Nasal Cannula flow liters per 2
minute
Physical Exam
General: Respiratory Distress (n) and Pain (Abdominal-and back)
HEENT: Normocephalic, Anicteric and Moist Mucous Membranes
Cardiovascular: Regular Rhythm
Respiratory: Crackles (Rare basilar), Rhonchi (n), Non-Labored Respirations, Accessory Resp Muscle Use (n) and Stridor (n)
GI: Soft, Distended, Other ( incision is intact without hematoma) and Other (Decreased bowel sounds)
Neurology: Awake, Alert and No Motor Deficits
Skin: Warm, Good Color, Cyanosis (n) and Jaundice (n)
Labs/Micro/Reports
Lab Data
09/21/23 03:49
09/21/23 03:49
Laboratory Results
09/21/23
03:49
APTT 33.5
--- NOTE | 2023-09-21 08:20 | W.PN.VS ---
Today's Communication / Plan
-
POD 8 Exploratory laparotomy, lysis of adhesions, aortomesenteric bypass nick thrombectomy, mesenteric arteriogram, patch angioplasty of aortomesenteric bypass
Plan:
-Continue standing heparin infusion, given tenuous situation and concern for GI bleed will continue to maintain non-titrated heparin infusion
-Continue PRN pain medications
-Continue NG tube, n.p.o.
-Continue TPN per general surgery
-Leukocytosis worsening with WBC 29. Patient expressed that he is agreeable to ex lap should it be recommended by general surgery.
-Continue close monitoring with repeat labs
Assessment/Plan
-
POD 8 Exploratory laparotomy, lysis of adhesions, aortomesenteric bypass nick thrombectomy, mesenteric arteriogram, patch angioplasty of aortomesenteric bypass
Plan:
-Continue standing heparin infusion, given tenuous situation and concern for GI bleed will continue to maintain non-titrated heparin infusion
-Continue PRN pain medications
-Continue NG tube, n.p.o.
-Continue TPN per general surgery
-Leukocytosis worsening with WBC 29. Patient expressed that he is agreeable to ex lap should it be recommended by general surgery.
-Continue close monitoring with repeat labs
Subjective Data
-
Date of Service: September 21, 2023
POD 8 Exploratory laparotomy, lysis of adhesions, aortomesenteric bypass nick thrombectomy, mesenteric arteriogram, patch angioplasty of aortomesenteric bypass
Feeling fatigued and unwell today
Complains of more abdominal discomfort
NG in place
+ BM, + flatus
WBC 29
HR 90s to 100s
Normotensive
Objective Data
-
Vital Signs
Temp Pulse Resp BP Pulse Ox
99.3 F 94 18 153/90 95
09/21/23 07:57 09/21/23 07:46 09/21/23 07:00 09/21/23 07:46 09/21/23 07:17
Intake and Output
09/20/23 09/21/23 09/22/23
06:59 06:59 06:59
Intake Total 4024 / 4126 3271 / 3623 352 / 352
Output Total 1500 / 1500 3025 / 3025
Balance 2524 / 2626 246 / 598 352 / 352
Intake:
IV fluids (Total) 1374 / 1396 528 / 550
Heparin 204 / 216 288 / 300
Protonix 170 / 180 240 / 250
nss 1000 / 1000
IV piggybacks 790 / 790 733 / 983 250 / 250
TPN/PPN 1360 / 1440 1920 / 2000 80 / 80
Amount instilled into GI Tube ( 90 / 90
Total)
[place] Sump 90 / 90
Blood Product Amount Infused ( 500 / 500
mL)
Packed Rbc Leukoreduced Unit 250 / 250
[id number]
Packed Rbc Leukoreduced Unit 250 / 250
[id number]
Output:
Gastrointestinal tube output ( 250 / 250 200 / 200
Total)
[place] Sump 250 / 250 200 / 200
Urine, Voided 1250 / 1250 2825 / 2825
Other:
How many times incontinent 1
MODERATE amount urine
How many times incontinent 1
SATURATED amount urine
Lab Results
09/21/23 03:49
09/21/23 03:49
Calcium 7.2 mg/dl (8.4-10.2) L 09/21/23 03:49
Phosphorus 2.4 mg/dl (2.5-4.5) L 09/21/23 03:49
Magnesium 1.9 mg/dl (1.6-2.3) 09/21/23 03:49
Total Bilirubin 1.6 mg/dl (0.2-1.3) H 09/19/23 07:44
Direct Bilirubin Cancelled 09/15/23 18:00
AST 81 U/L (17-59) H 09/19/23 07:44
ALT 116 U/L (0-50) H 09/19/23 07:44
Alkaline Phosphatase 130 U/L (38-126) H 09/19/23 07:44
Total Protein 3.8 g/dl (6.3-8.2) L 09/19/23 07:44
Albumin 1.9 g/dl (3.5-5.0) L 09/19/23 07:44
Physical Exam
-
Abdomen distended, soft, diffusely tender, non peritonitic
incision clean, dry, intact
abdominal wall ecchymotic
--- NOTE | 2023-09-21 08:23 | W.PN.ID1 ---
Addendum entered and electronically signed by So Marks MD 09/21/23 08:51:
correction:
abdomen moderate distended, surgical site minimal crusted blood - no erythema, warmth or drainage
Original Note:
Date of Service
Date of Service: September 21, 2023
Today's Communication
- continue meropenem, micafungin, vancomycin
- if returns to the OR please get cultures
Assessment / Plan
Suspected developing secondary peritonitis
Leukocytosis
Total SMA graft occlusion s/p thrombectomy/patch
Acute mesenteric ischemia - ongoing
Resolving Shock Liver
Noncompliance
- blood cultures x2
- no abdominal drains at this time; no definite organized collections
- if returns to the OR please get cultures
- echo pending
- continue meropenem, micafungin, vancomycin
- follow clinically
Chief Complaint
-: Leukocytosis and Other (secondary peritonitis)
Subjective / Review of Systems
afebrile
bp stable
increasing leukocytosis, plt stable
slight improvement in L shift, eos present in normal amounts
cr stable
blood cultures no growth to date
ngt output ongoing - bilious
abdominal pain ongoing
blood bms overnight noted
has agreed to return to the OR
Vital Signs / Physical Exam
Vital Signs
Vital Signs
Temp Pulse Resp BP Pulse Ox
99.3 F 94 18 153/90 95
09/21/23 07:57 09/21/23 07:46 09/21/23 07:00 09/21/23 07:46 09/21/23 07:17
Physical Exam
Constitutional: No Acute Distress
Cardiovascular: Regular Rate and S1/S2; Negative Murmur or Rub
Pulmonary: Clear and Symmetric; Negative Wheezes or Rales
Gastrointestinal: Soft, Non Tender, Non Distended and Normal Bowel Sounds
Skin: Warm and Dry; Negative Rash or Jaundice
Objective Data
Lab Data
Lab Results
09/21/23 03:49
09/21/23 03:49
PT 17.8 Sec (11.4-14.6) H 09/13/23 03:17
INR 1.49 09/13/23 03:17
APTT 33.5 Sec (23.4-35.0) 09/21/23 03:49
Estimated Creat Clear 120 ml/min 09/21/23 03:49
Lactic Acid 1.8 mmol/L (0.7-2.0) 09/20/23 05:42
Total Bilirubin 1.6 mg/dl (0.2-1.3) H 09/19/23 07:44
AST 81 U/L (17-59) H 09/19/23 07:44
ALT 116 U/L (0-50) H 09/19/23 07:44
Alkaline Phosphatase 130 U/L (38-126) H 09/19/23 07:44
Most recent labs reviewed.
Micro Results:
09/20/23 10:03 Blood Culture - Pending
Blood/Venous
09/20/23 10:11 Blood Culture - Pending
Blood/Venous
09/12/23 18:05 Blood Culture - Final
Blood/Venous No Growth - Final Report
09/12/23 18:05 Influenza Types A & B (ALAN) - Final
Nasal Swab Negative for Influenza A & B, NAAT
Negative results must be combined with clinical observations
and patient history.
Nucleic Acid Amplification test (NAAT)performed on the
[employer] platform.
--- NOTE | 2023-09-21 08:25 | PHA.VAN.FU ---
Vancomycin Assessment / Plan
- Assessment
Renal Function: Stable
WBC's are: Trending Up
In the past 24 hrs, patient has been: Afebrile
Concomitant Antimicrobials: MEROPENEM, MICAFUNGIN
- Dosing Plan
Continue: 1250MG Q12H
- Monitoring Plan
Peak Level: 09/20 @2100
Trough Level: 09/21 @0530
- Follow Up
Pharmacy will continue to follow.
Vancomycin Follow UP
- -
Patient Age: 58
Patient Sex: Male
Vancomycin Day #: 2
Indication: Gi / Intra-Abdominal
Requesting Provider: DOTTIE
Pertinent Antimicrobial Allergies:
NKDA
Height / Weight:
Height 5 ft 11 in
Actual Weight 86 kg
IBW in k.3
- Vital Signs / Lab Results
Temp Pulse Resp BP Pulse Ox
99.3 F 94 18 153/90 95
09/21/23 07:57 09/21/23 07:46 09/21/23 07:00 09/21/23 07:46 09/21/23 07:17
Lab Results - Hematology
09/19/23 09/19/23 09/20/23
07:44 15:45 05:42
WBC 20.1 H Cancelled 24.7 H
09/21/23
03:49
WBC 28.9 H
Lab Results - Chemistry
09/19/23 09/19/23 09/20/23
07:44 17:08 00:49
BUN 19 17 15
Creatinine 0.8 0.7 0.7
Estimated Creat Clear 105 120 120
Albumin 1.9 L
09/20/23 09/21/23
05:42 03:49
BUN 16 16
Creatinine 0.7 0.7
Estimated Creat Clear 120 120
Albumin
09/19/23 09/19/23 09/19/23
10:37 17:00 17:08
Lactic Acid 2.0 Cancelled 1.7
09/19/23 09/20/23 09/20/23
23:00 02:07 05:42
Lactic Acid Cancelled 1.4 1.8
[2023-09-21] MEDS: NSS (PRESERVATIVE FREE) IV (08:31)
[2023-09-21] MEDS: FLUSH (NSS) 1 FLUSH IV (08:48)
--- NOTE | 2023-09-21 09:00 | W.PN.HOSP.TC ---
Today's Communication/Plan
-
Continue with current antibiotics
Going to OR today
IV Lasix again today. Follow weight.
Assessment / Plan
Assessment / Plan
Assessment:
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
- s/p Exploratory laparotomy, lysis of adhesions, aorto-mesenteric bypass [place] thrombectomy, mesenteric arteriogram, patch angioplasty of aorto-mesenteric bypass 09/12
- CT-A 09/13 showing patient bypass, concern for bowel ischemia
- With persistent abdominal pain and drop in hemoglobin repeat CT abdomen pelvis angiogram was done which was markedly abnormal. Vascular, general surgery and radiology input regarding the abnormal findings noted.
-There is small bowel and large bowel wall thickening. This concerning for ischemia particularly in the transverse colon. Celiac axis/SMA bypass graft similar to previous exam. Comments about the free air in the abdomen by vascular noted. Plan
is for exploratory laparotomy today.
- continue IV Heparin per vascular protocol
- Dilaudid for pain control
- BCX neg
- With rising white count, and small collections of intermediate density throughout the mesentery which radiologically concerning for mesenteric hematoma but cannot clinically rule out infectious collection. Changed to meropenem , ID added
Micagungin and vancomycing
- Obtain OR cultures today
Hematology input about thrombophilia assessments noted - transition into DOAC once off of IV heparin and follow with her in offfice for work up.
Anemia -severe needing blood transfusion-related to acute blood loss anemia. [place] multifactorial including some GI blood loss, hematomas. hemodynamically stable. HH stable post transfusion. No prior history of peptic ulcer disease. Follow H&H
closely and continue with Protonix twice a day. GI following.
Chronic back pain-recent steroid taper. Continued mid back pain which is a equally troubling. No sciatica . plain xrays show loss of height of superior endplate t12,l4 . Pt had pull while lifting something at home but no fall or trauma .cw
symptomatic tx -pain med and muscle relaxants.
Hyperglycemia
No hx of DM
HbA1C 5.8
Tobacco abuse- remains actively smoking
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
Bilateral pleural effusion with underlying bilateral consolidation right more than left-suspect fluid shifts ;wt is up . BNP only minimally elevated;check ECHO . cw daily lasix as needed and follow I/O and wt. ICS
CAD s/p prior hx of NSTEMI -asymptomatic without chest pain. On aspirin at home. Currently on IV heparin.
Hx of DVT status post apixaban 03/2021 post left knee surgery
Nutrition-cw TPN.
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
DVT ppx: IV Heparin
Code: Full
Total time spent on today's encounter was 52 minutes which included time spent in counseling the patient regarding diagnosis and treatment plan as listed above, goals of care, and symptom management. Case was discussed with nursing staff,
specialists, All labs and imaging personally reviewed by me. Remainder the time spent in detailed review of previous records, lab data, imaging, and other medical provider documentation.
Anticipated Discharge: > 48 hours
Subjective/Interval History
-
Date of Service: September 21, 2023
Going to OR today
No nausea but continued abdo pain
Passing some gas per pt
No BM
Objective Data
-
Labs:
Laboratory Results
09/21/23
03:49
WBC 28.9 H
Hgb 10.1 L
Hct 29.0 L
Plt Count 178 D
APTT 33.5
Sodium 133 L
Potassium 3.7
Chloride 105
Carbon Dioxide 27
BUN 16
Creatinine 0.7
Glucose 186 H
Calcium 7.2 L
Vital Signs:
Vital Signs
Temp Pulse Resp BP Pulse Ox
100.5 F H 94 18 153/90 95
09/21/23 08:10 09/21/23 07:46 09/21/23 07:00 09/21/23 07:46 09/21/23 07:17
I&O
09/20/23 09/21/23 09/22/23
06:59 06:59 06:59
Intake Total 4024 / 4126 3271 / 3623 352 / 352
Output Total 1500 / 1500 3025 / 3025
Balance 2524 / 2626 246 / 598 352 / 352
Review of Systems
-
Constitutional: Denies Fever
Respiratory: Denies Trouble Breathing (on RA)
Cardiac: Denies Chest Pain
Abdomen/GI: Reports Abdominal Pain; Denies Nausea
Neuro: Denies Dizzy
Physical Exam
-
General: No Apparent Distress
HEENT: Moist Mucous Membranes
Respiratory: Clear to Auscultation (ANTERIORLY)
Cardiac: Regular Rhythm and S1/S2
GI: Soft and Tender (In general); Negative Normal Bowel Sounds (hyper today)
Neuro: AO x 3
Psych: Calm
Data Reviewed
-
Labs: Labs Reviewed by me
--- NOTE | 2023-09-21 09:14 | PTCARENOTE ---
NPO x swabs per surgery. ECG obtained, med as noted, protonix and TPN continue. resting, voiding large amounts paler yellow.
[2023-09-21] MEDS: MYCAMINE 105 MG IV (10:20)
--- NOTE | 2023-09-21 10:58 | W.PN.GS2 ---
Today's Communication / Plan
-
Arrangements for the OR are in progress.
Assessment / Plan
-
This is a 58-year-old male smoker who presented 09/13/2023 with abdominal pain found to have mesenteric ischemia,
POD#8 s/p exploratory laparotomy, SMA and aorta mesenteric thrombectomy with patch angioplasty (vascular)
Temp 100.5, pulse around 100, stable blood pressure and adequate urine output
abdominal exam slightly worse, WBC increasing (28.9)
NGT output 200cc, bilious
CTA 09/19/23 demonstrates patent SMA bypass, possible distal dissection (subtle).� Noted thickening and inflammation of the transverse colon, small volume free air decreased from CT scan on 09/13.�
I reviewed the management options again including continued nonoperative management versus surgery. Since he is feeling worse, he wishes to proceed with surgery. The plan is to hold the heparin now and arrangements are in progress for the OR. I
explained that any ischemic bowel will be removed and I will most likely be more than 1 operation. Surgery could involve an ostomy. The risks of surgery are very high and include, but are not limited to, bleeding, infection, adhesions, hernias,
dehiscence, anastomotic leak if one is performed, stoma complications if one is performed, injury to other structures, DVT, cardiopulmonary complications, prolonged ventilation, and even . I explained that if a large portion of the small bowel
is involved, a resection might not be performed. Depending upon the findings, I might leave the bowel in discontinuity and plan for a second look operation. He asked if I would speak with his ex- and I called her on the telephone, all
questions answered.
Subjective Data
-
Date of Service: September 21, 2023
He states his pain is worse today. He still having bowel movements that are heme positive but no gross blood.
Objective Data
-
Intake and Output
09/20/23 09/21/23 09/22/23
06:59 06:59 06:59
Intake Total 4024 / 4126 3271 / 3623 758 / 758
Output Total 1500 / 1500 3025 / 3025 185 / 1850
Balance 2524 / 2626 246 / 598 -1092 / -1092
Intake:
IV fluids (Total) 1374 / 1396 528 / 550 58 / 58
Heparin 204 / 216 288 / 300 18 / 18
Protonix 170 / 180 240 / 250 40 / 40
nss 1000 / 1000
IV piggybacks 790 / 790 733 / 983 350 / 350
TPN/PPN 1360 / 1440 1920 / 2000 320 / 320
Amount instilled into GI Tube ( 30 / 30
Total)
[place] Sump 30 / 30
Blood Product Amount Infused ( 500 / 500
mL)
Packed Rbc Leukoreduced Unit 250 / 250
[id number]
Packed Rbc Leukoreduced Unit 250 / 250
[id number]
Output:
Gastrointestinal tube output ( 250 / 250 200 / 200
Total)
[place] Sump 250 / 250 200 / 200
Urine, Voided 1250 / 1250 2825 / 2825 185 / 1849
Other:
How many times incontinent 1
MODERATE amount urine
How many times incontinent 1
SATURATED amount urine
Vital Signs
Temp Pulse Resp BP Pulse Ox
100.5 F H 106 16 128/82 95
09/21/23 08:10 09/21/23 09:02 09/21/23 09:02 09/21/23 09:02 09/21/23 08:00
Lab Results
09/21/23 03:49
09/21/23 03:49
Calcium 7.2 mg/dl (8.4-10.2) L 09/21/23 03:49
Phosphorus 2.4 mg/dl (2.5-4.5) L 09/21/23 03:49
Magnesium 1.9 mg/dl (1.6-2.3) 09/21/23 03:49
Total Bilirubin 1.6 mg/dl (0.2-1.3) H 09/19/23 07:44
Direct Bilirubin Cancelled 09/15/23 18:00
AST 81 U/L (17-59) H 09/19/23 07:44
ALT 116 U/L (0-50) H 09/19/23 07:44
Alkaline Phosphatase 130 U/L (38-126) H 09/19/23 07:44
Total Protein 3.8 g/dl (6.3-8.2) L 09/19/23 07:44
Albumin 1.9 g/dl (3.5-5.0) L 09/19/23 07:44
Physical Exam
-
Mild distress.
Abd: remains distended, tympanitic. Diffusely tender.
[2023-09-21] MEDS: NOVOLOG FLEXPEN-LOW RESISTANCE 1 UNITS SC ×2 (12:02→23:41)
[2023-09-21 12:08] LABS: Glucose - Point of Care 190 mg/dl (70-99)
--- NOTE | 2023-09-21 12:18 | PTCARENOTE ---
family in to visit, updated, awaiting OR. Seen by Dr. Daugherty. abd remains softly distended, tender. skin warm, temp noted ax 99.9. skin warm, resting between pain med/valium doses. Confirmed availability of active type and cross in blood bank;
no orders for hold products at this time.
--- NOTE | 2023-09-21 12:42 | PTCARENOTE ---
skin warm, dry, rang call paco, c/o 'more pain, I never signed up for this,' rated 20/0-10 scale, requested and received IV dilaudid as ordered. Abd assessment remains with +bowel sounds, rounded excursions with resps, softly distended. denies
nausea. TT to general surgery team PA with update, no new orders at this time, OR plans expected shortly. after pain med, resting lightly, family visited, updated, headed home. TPN and protonix continue, call paco in reach.
--- NOTE | 2023-09-21 13:00 | PTCARENOTE ---
taken to OR by OR team via bed. TPN and protonix capped, NG clamped. Denies urge to void at present. Dr. Andrews in earlier, consent obtained.
--- NOTE | 2023-09-21 17:26 | W.IMMPOSTOP ---
Surgical Immed Post Op Note
-
Primary Surgeon: Jt Andrews MD
Peanut Separator: Analisa Zuniga PA-C
Pre-op Diagnosis: Ischemic bowel
Post-op Diagnosis: Same
Procedure Performed: Exploratory laparotomy, subtotal colectomy (takedown of splenic flexure)
Anesthesia Type: GET
Specimen / Cultures: Left colon (open end is proximal)
Distal 70cm of terminal ileum with the entire right colon, transverse colon and descending colon
Peritoneal cultures
Estimated Blood Loss: 30cc
Complications: None
Operative Findings: Necrotic and perforated entire transverse colon
Ischemic right colon and terminal ileum
Ischemic left colon
At the end of the case, ? ischemia of the proximal jejunum
Planned 2nd look operation in 48-72 hours
Patient's ex-, Mirian, updated.
[2023-09-21] MEDS: NORMOSOL-R 1000 IV (17:39)
[2023-09-21] MEDS: SUBLIMAZE 100 IV (17:40)
[2023-09-21] MEDS: DIPRIVAN 100 IV (17:41)
[2023-09-21 17:46] LABS: % Basophils 0.6 % (0-2); % Eosinophils 0.2 % (0-6); % Immature Granulocytes 2.9 % (0-0.5); % Lymphocytes 5.6 % (20.5-51.1); % Monocytes 3.3 % (1.7-9.3); % Neutrophils 87.4 % (42.2-75.2); Absolute Basophils 0.2 10^3/uL (0-0.2); Absolute Eosinophils 0.1 10^3/uL (0-0.7); Absolute Immature Granulocytes 0.8 10^3/uL (0-0.05); Absolute Lymphocytes 1.5 10^3/uL (1.2-3.4); Absolute Monocytes 0.9 10^3/uL (0.1-0.6); Hematocrit 27.4 % (39.0-52.0); Hemoglobin 9.5 g/dL (13.0-18.0); Mean Corp Hgb Conc. 34.7 g/dL (33.0-37.0); Mean Corpuscular Hgb 30.5 pg (27.0-31.0); Mean Corpuscular Volume 88.1 fL (80.0-94.0); Mean Platelet Volume 13.5 fL (7.4-10.4); Nucleated Red Blood Cells % 2.4 % (-); Platelet Count 168 10^3/uL (130-400); Red Blood Cell Count 3.11 10^6/uL (4.70-6.10); Red Cell Dist. Width 15.6 % (11.5-14.5); White Blood Cell Count 26.3 10^3/uL (4.8-10.8)
[2023-09-21 17:56] LABS: Lactic Acid 1.5 mmol/L (0.7-2.0)
[2023-09-21 18:00] LABS: Blood Urea Nitrogen 16 mg/dl (9-20); Calcium 6.3 mg/dl (8.4-10.2); Carbon Dioxide 27 mmol/L (22-30); Chloride 103 mmol/L (98-107); Estimated Creatinine Clearance > 125 ml/min; Glucose 140 mg/dl (70-99); Potassium 3.7 mmol/L (3.5-5.1); Sodium 130 mmol/L (135-145); eGFR > 60.00
[2023-09-21 18:03] LABS: HCO3 29.1 mmol/L (21-28); O2 Saturation % 99.3 % (94-98); PCO2 40 mmHg (35-48); PO2 127 mmHg (83-108); pH 7.47 (7.35-7.45)
[2023-09-21] MEDS: NOVOLOG FLEXPEN-LOW RESISTANCE SC (18:05)
--- NOTE | 2023-09-21 18:13 | PTCARENOTE ---
1730 recd direct back from OR anesthesia in attendance, report at bedside. Dr. Andrews present. tolerating current vent settings, did open eyes, bilat restraints for ETT safety. garcía draining, NG to suction. Abd dressing dry and intact, abds
micropore tape. arterial line congruent with cuff, rest of assessment unchanged.
--- NOTE | 2023-09-21 18:33 | PTCARENOTE ---
labs trickling in, ABG to Dr. Raman, no changes. chemistries, GREENHOUSE LABORER Annette aware and calcium repletion pending. titrating levophed, second pressor order obtained. awaiting CXR. I/O tallied. occas cough but otherwise calm on present sedation.
[2023-09-21 19:08] LABS: ALT (SGPT) 47 U/L (0-50); AST (SGOT) 71 U/L (17-59); Albumin 1.3 g/dl (3.5-5.0); Alkaline Phosphatase 133 U/L (38-126); Total Bilirubin 2.8 mg/dl (0.2-1.3); Total Protein 3.1 g/dl (6.3-8.2)
[2023-09-21] MEDS: CALCIUM GLUCONATE 290 MG IV (19:34)
[2023-09-21] MEDS: LEVOPHED 250 IV ×2 (19:41→23:47)
[2023-09-21] MEDS: OFIRMEV 100 IV (19:51)
--- NOTE | 2023-09-21 20:00 | PTCARENOTE ---
Rec'd pt w/ wrists restrained for pt safety, diprivan gtt at 20 keyanna, fent gtt at 75 keyanna, follows simple commands, weak, SR, L rad colin w/ good wave form, flushes well, accurate to cuff, to keep MAP > 65, presently at 16 keyanna- see flow sheet for
updates, weak distal pulses, skin warm/dry, ofirmiv 1 gm iv given for temp 100.6, 4 gm tasia gluconate hung over 1 hr per order, #8 oral ett- 25 cm- moved to R lip, ac 16, tv 500, 5 peep, decr to 40% by resp therapist, lungs decr in bases, suct for
scant clear secretions,no bowel sounds, no bm abd tender to palpation, R nares [place] to low cont wall suction draining brown liquid, irrigated q4hr w/ 30 ml tap h20, thermister garcía draining jovani urine, protonix gtt at 10ml/hr
[2023-09-21 21:16] LABS: Vancomycin Peak 25.9 ug/ml (18-26)
[2023-09-21] MEDS: DIPRIVAN IV (21:35)
[2023-09-21 23:46] LABS: Hematocrit 30.5 % (39.0-52.0); Hemoglobin 10.7 g/dL (13.0-18.0)
[2023-09-21 23:49] LABS: Glucose - Point of Care 168 mg/dl (70-99)
--- NOTE | 2023-09-21 23:54 | PTCARENOTE ---
sys reviewed, changes noted, CHG bath done, linens changed
[2023-09-22] VITALS (17 sets, daily range): BP systolic 70–115; BP diastolic 47–72; BMI 26.5
[2023-09-22 00:06] LABS: Blood Urea Nitrogen 19 mg/dl (9-20); Calcium 7.1 mg/dl (8.4-10.2); Carbon Dioxide 25 mmol/L (22-30); Chloride 100 mmol/L (98-107); Estimated Creatinine Clearance > 125 ml/min; Glucose 164 mg/dl (70-99); Potassium 4.4 mmol/L (3.5-5.1); Sodium 130 mmol/L (135-145); eGFR > 60.00
[2023-09-22] MEDS: NORMOSOL-R 1000 IV ×2 (00:55→10:01)
[2023-09-22] MEDS: DIPRIVAN 100 IV ×3 (01:17→21:54)
[2023-09-22] MEDS: LEVOPHED 250 IV ×4 (02:44→12:11)
[2023-09-22] MEDS: SUBLIMAZE 100 IV ×2 (03:19→16:29)
[2023-09-22] MEDS: STERILE WATER FOR INJECTION 10 ML IV ×4 (03:24→21:54)
[2023-09-22] MEDS: MERREM 500 MG IV ×4 (03:25→21:54)
[2023-09-22] MEDS: OFIRMEV 100 IV ×2 (03:31→11:20)
[2023-09-22 03:49] LABS: HCO3 25.5 mmol/L (21-28); O2 Saturation % 99.1 % (94-98); PCO2 35 mmHg (35-48); PO2 110 mmHg (83-108); pH 7.47 (7.35-7.45)
[2023-09-22 03:57] LABS: Hematocrit 31.7 % (39.0-52.0); Hemoglobin 10.9 g/dL (13.0-18.0); Mean Corp Hgb Conc. 34.4 g/dL (33.0-37.0); Mean Corpuscular Hgb 30.8 pg (27.0-31.0); Mean Corpuscular Volume 89.5 fL (80.0-94.0); Mean Platelet Volume 14.3 fL (7.4-10.4); Platelet Count 201 10^3/uL (130-400); Red Blood Cell Count 3.54 10^6/uL (4.70-6.10); Red Cell Dist. Width 15.4 % (11.5-14.5); White Blood Cell Count 23.2 10^3/uL (4.8-10.8)
[2023-09-22 04:01] LABS: APTT 29.4 Sec (23.4-35.0)
--- NOTE | 2023-09-22 04:04 | PTCARENOTE ---
sys reviewed, ofirmev 1 gm iv given for temp, levophed gtt titrated for bp- see flow sheet, ett repos on left side at 25 cm
[2023-09-22 04:10] LABS: Vancomycin Trough 14.7 ug/ml (5-20)
[2023-09-22 04:15] LABS: ALT (SGPT) 36 U/L (0-50); AST (SGOT) 50 U/L (17-59); Albumin 1.2 g/dl (3.5-5.0); Alkaline Phosphatase 86 U/L (38-126); Blood Urea Nitrogen 19 mg/dl (9-20); Calcium 6.8 mg/dl (8.4-10.2); Carbon Dioxide 25 mmol/L (22-30); Chloride 103 mmol/L (98-107); Estimated Creatinine Clearance > 125 ml/min; Glucose 167 mg/dl (70-99); Magnesium 1.8 mg/dl (1.6-2.3); Phosphorus 4.1 mg/dl (2.5-4.5); Potassium 4.5 mmol/L (3.5-5.1); Sodium 128 mmol/L (135-145); Total Bilirubin 3.4 mg/dl (0.2-1.3); Total Protein 3.1 g/dl (6.3-8.2); Triglycerides 125 mg/dl (10-149); eGFR > 60.00
[2023-09-22] MEDS: NSS 1000 IV (04:34)
--- NOTE | 2023-09-22 04:36 | PTCARENOTE ---
1 liter nss hung per order over 1 hr
[2023-09-22] MEDS: CALCIUM GLUCONATE 130 MG IV (04:54)
--- NOTE | 2023-09-22 04:55 | PTCARENOTE ---
Lis Alberto NP aware of Ca result- 3 gm calcium gluconate over 1 hr hung per order
[2023-09-22] MEDS: VANCOCIN 275 MG IV ×2 (04:59→19:20)
[2023-09-22 05:20] LABS: Glucose - Point of Care 138 mg/dl (70-99)
[2023-09-22] MEDS: NOVOLOG FLEXPEN-LOW RESISTANCE SC ×2 (05:26→12:11)
[2023-09-22] MEDS: LASIX 40 MG IV (07:26)
[2023-09-22] MEDS: PROTONIX 100 IV (07:26)
[2023-09-22] MEDS: ASPIRIN 300 MG RECTAL (07:26)
--- NOTE | 2023-09-22 08:18 | W.PN.HOSP.TC ---
Today's Communication/Plan
-
Continue with antibiotic /antifungal.
Check echocardiogram
Continue with IV Lasix
Wean vasopressors as able.
Resume IV heparin if still indicated from vascular standpoint
Consider resuming TPN.
Assessment / Plan
Assessment / Plan
Assessment:
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
- s/p Exploratory laparotomy, lysis of adhesions, aorto-mesenteric bypass [place] thrombectomy, mesenteric arteriogram, patch angioplasty of aorto-mesenteric bypass 09/12
- CT-A 09/13 showing patient bypass, concern for bowel ischemia
- With persistent abdominal pain and drop in hemoglobin repeat CT abdomen pelvis angiogram was done which was markedly abnormal. Vascular, general surgery and radiology input regarding the abnormal findings noted.
-There is s/p exploratory laparotomy 09/20 Necrotic and perforated entire transverse colon
� � � � � � � � � � � � � � � Ischemic right colon and terminal ileum
� � � � � � � � � � � � � � � Ischemic left colon
� � � � � � � � � � � � � � � At the end of the case, ? ischemia of the proximal jejunum
Distal to 70 cm of terminal colon with entire right colon, transverse colon and descending colon removed.
Plan is for second look operation in 24 to 48 hours.
Colorectal surgery following.
Resume IV heparin if appropriate.
CW ABX and antifungal per ID;OR cx taken-will follow.
Hematology input about thrombophilia assessments noted - transition into DOAC once off of IV heparin and follow with her in offfice for work up.
VDRF -on vent postop-continue to have medically stable. Audio Installer following.
Postop shock-patient currently on vasopressors. Doubt blood loss. H&H stable. Currently on broad-spectrum antibiotics and antifungal and elevated white count noted. Cannot rule out septic shock. Check procalcitonin. Check an echocardiogram.
Wean vasopressors as able.
Bilateral pleural effusion with underlying bilateral consolidation right more than left-suspect fluid shifts and hypoalbunemia ;wt is up . BNP only minimally elevated;check ECHO . cw daily lasix as needed and follow I/O and wt. ICS
Anemia -severe needing blood transfusion-related to acute blood loss anemia. [place] multifactorial including some GI blood loss, hematomas. hemodynamically stable. HH stable post transfusion. No prior history of peptic ulcer disease. Follow H&H
closely and continue with Protonix twice a day. GI following.
Hyperbilirubinemia-mostly indirect elevation-possible Gilbert's +_ hemtomas related. Continue to follow.
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
CAD s/p prior hx of NSTEMI -asymptomatic without chest pain. On aspirin at home.
Hx of DVT status post apixaban 03/2021 post left knee surgery
Chronic back pain-recent steroid taper. Continued mid back pain which is a equally troubling. No sciatica . plain xrays show loss of height of superior endplate t12,l4 . Pt had pull while lifting something at home but no fall or trauma .cw
symptomatic tx -pain med and muscle relaxants.
Hyperglycemia
No hx of DM
HbA1C 5.8
Tobacco abuse- remains actively smoking
Nutrition-resume TPN if okay from surgical standpoint. Hypoalbuminemia severe noted.
DW COPYWRITER
DVT ppx: IV Heparin when appropriate from surgery
Code: Full
Total Critical Care Time__35___ minutes. I was immediately available to the patient and staff. I personally examined, reviewed labs, diagnostic images/reports, interpretations, treatment plans, discussed patient care with other providers and
family or caregivers (if patient is unable to make decisions), entered orders as appropriate and documented the medical record.
Anticipated Discharge: > 48 hours
Subjective/Interval History
-
Date of Service: September 22, 2023
Patient currently sedated and intubated. He is now postop day 1.
Objective Data
-
Labs:
Laboratory Results
09/21/23 09/22/23 09/22/23
23:38 03:38 10:00
WBC 23.2 H
Hgb 10.7 L 10.9 L
Hct 30.5 L 31.7 L
Plt Count 201
APTT 29.4
HCO3 25.5
Sodium 130 L 128 L Pending
Potassium 4.4 4.5 Pending
Chloride 100 103 Pending
Carbon Dioxide 25 25 Pending
BUN 19 19 Pending
Creatinine 0.6 L 0.6 L Pending
Glucose 164 H 167 H Pending
Calcium 7.1 L 6.8 L* Pending
Total Bilirubin 3.4 H
AST 50
ALT 36
Alkaline Phosphatase 86
Vital Signs:
Vital Signs
Temp Pulse Resp BP Pulse Ox
99.9 F 81 16 94/52 99
09/22/23 07:58 09/22/23 07:26 09/22/23 06:45 09/22/23 07:26 09/22/23 07:37
I&O
09/21/23 09/22/23 09/23/23
06:59 06:59 06:59
Intake Total 3271 / 3623 6034.2 / 6034.2
Output Total 3025 / 3025 3195 / 3195
Balance 246 / 598 2839.2 / 2839.2
Review of Systems
-
Unable to obtain full review of systems at this time due to: Patient Intubation
Physical Exam
-
General: No Apparent Distress
HEENT: Moist Mucous Membranes
Respiratory: Clear to Auscultation (anteriorly)
Cardiac: Regular Rhythm, S1/S2 and Tachycardic
GI: Soft and Other (in dressing); Negative Normal Bowel Sounds
Musculoskeletal: Edema, Right Lower Extrem and Edema, Left Lower Extrem (1+)
Neuro: Sedated
Psych: Calm
Data Reviewed
-
Labs: Labs Reviewed by me
--- NOTE | 2023-09-22 08:24 | W.PN.INTV ---
Today's Communication / Plan
Recommendations
Keep intubated with plans for back to the OR over the next 24-48 hours as per colorectal surgery given bowel is currently in discontinuity
Okay to start chemical DVT prophylaxis as per vascular surgery/colorectal surgery
Considering GI felt that GI bleed that occurred recently was due to ischemic colitis, and patient has ischemic bowel that is stemming from aortomesenteric bypass thrombosis, I would favor starting systemic anticoagulation as soon as safe to do so
Transfuse as needed to keep Hb >7, plt>50 K
Abx as per ID
Pain control
TPN as per surgery
Prognosis guarded
Assessment
-
58-year-old man with past medical history noted, admitted to the emergency room with abdominal pain. Found to have bowel ischemia due to occlusion of prior aortic mesenteric bypass. Apparently patient stopped taking Plavix and statin since January
2022. Only on aspirin, emergently taken to the operating room. Transferred to the critical care unit, we were consulted for critical care management.
Impression:
- Ventilator dependent respiratory failure
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
- Status post exploratory laparotomy, lysis of adhesions, aortomesenteric bypass nick thrombectomy, mesenteric arteriogram, patch angioplasty of aortomesenteric bypass graft (OR date: 09-13-2023)
- Ischemic bowel c/b necrosis s/p ex-lap with subtotal colectomy with splenic flexure takedown and distal 70cm of TI also removed (OR date: 09/21/2023)
- GI bleed - Hb stable for >24 hrs and no current signs of active bleed - GI bleed was likely due to ischemic colitis
- Anemia due to acute blood loss
- Leukocytosis due to mesenteric ischemia
- Hyponatremia (acute on chronic - baseline Na approx 131-134)
- Hyperglycemia
- Lactic acidosis - resolved
- Left flank ecchymosis
- Wheezing - resolved
- Bilateral pleural effusions left greater than right
Conditions present prior admission:
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
graft bypass into the celiac and SMA vessels.
Tobacco abuse
PFT's 06-19- with moderate airflow obstruction with some reversibility postbronchodilator on spirometry.-Not on bronchodilators
Moderate COPD/emphysema-not seen by pulmonary in the outpatient office for
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
History of left gastric anemic DVT status post apixaban 03/2021 post left knee surgery
History lumbar vasectomy
Chronic back pain-recent steroid taper
Plan
Patient continues to be critically on mechanical ventilation and in shock on vasopressors
Underwent colorectal surgery yesterday with necrotic/perforated transverse colon seen and ischemic bowel including the right colon, 70 cm of the terminal ileum and the left colon and the proximal jejunum was also becoming possibly ischemic towards
the end of the procedure. The bowel was left in discontinuity and was divided with 1 firing of the contour stapler. The left colon was resected with the proximal end left open.
Going back to OR within next 24-48 hrs for re-look to re-assess small bowel - my assumption is that he will need an ileostomy
Continue TPN in meantime and I discussed starting AC with vascular surgery and colorectal, and considering his recent GI bleed, we will start chemical DVT ppx and hold off on resuming therapeutic AC at this time
Continue mechanical ventilation with daily SAT/SBT, titrating FiO2 and PEEP to keep SpO2 >90-94% and keep PIP<30, plataeu pressure <30
VAP precautions
Nebulizers as needed-intermittently with wheezing-currently resolved
Postoperative management as per colorectal/general surgery and vascular surgery -correspondence reviewed and recommendations are appreciated
POD#9 exploratory laparotomy, lysis of adhesions, aortomesenteric bypass nick thrombectomy, mesenteric arteriogram, patch angioplasty of aortomesenteric bypass
POD#1 subtotal colectomy
Antibiotics per surgery-was on Zosyn-changed to meropenem (started on 3-23 in addition to micafungin)
Follow cultures
Infectious disease consultation noted-correspondence reviewed
NGT to suction
Pain management
Maintain MAP>65
Monitor hemoglobin
Transfuse as needed to keep Hb>7, plt>50k
GI evaluation-correspondence reviewed-no acute GI intervention recommended at this point
PPI continues
Monitor renal function
Replace electrolytes as needed
Previously noted to have some hypoglycemia
Dextrose if needed
Continue TPN per surgery
Trend serum Na; check urine electrolytes and uric acid to rule out SIADH
Monitor liver functions
Smoking cessation counseling ongoing - not currently relevant; we can address this if pt is extubated
DVT prophylaxis- start heparin SQ 5000 units q8hr
Nutrition per surgery and vascular surgery
Note: Dr. Raman reviewed with ex- at the bedside with patient's permission-reviewed case 09/20/2023
Critical care statement: A total of 41 minutes of critical care time was provided for this patient today. This includes management of unstable vital signs, evaluation of the patient at bedside, reviewing the patient's pertinent medical records
including radiographs, transfusion management, pressor management, microbiology, laboratory evaluations, and discussion with primary team, consultants, pharmacy, nutrition, physical therapy, case management, charge nurse, critical care nursing, and
respiratory therapy.
Data:
CXR 09-21-2023: Endotracheal tube has been inserted with tip 2.3 cm above the yue.
CTA Abd/Pelvis with/without IV contrast 09-19-2023:
Markedly abnormal examination. No definite findings to suggest an acute retroperitoneal hemorrhage, however there is an increase in free fluid throughout the abdomen and pelvis.
There are small collections of intermediate density throughout the mesentery, concerning for small mesenteric hematomas.
Increased bilateral pleural effusions left greater than right and increased bibasilar consolidation.
As previously noted there is small bowel and large bowel wall thickening. Concerning for ischemia particularly in the transverse colon with increased stranding and inflammatory appearance.
Persistent free air and free fluid, concerning for an occult perforation, no definite site identified.
Celiac axis/SMA bypass graft similar to previous exam.
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 Chavez at 4:00 PM.
Left transversus abdominis intramuscular hematoma. Slightly increased compared to previous exam. Increased bilateral flank edema. Left greater than right. Consistent with the clinical concern for increased bruising.
CTA Abd/Pelvis with/without contrast 09-14-2023:�
Moderate small bowel wall and large bowel wall thickening as described above. Ischemia cannot be excluded.
Free air and free fluid in the abdomen and pelvis likely postsurgical change - new
Celiac axis/SMA bypass graft.
Moderate bibasilar consolidation - new
Chavez catheter present - new
Mild prostate hypertrophy - stable
CTA Abd/Pelvis with/without contrast 09-12-2023:
1. Complete occlusion of the celiac/SMA bypass graft as described.
2. Mild bilateral lower lobe infectious/inflammatory bronchiolitis change.
3. Mild T12 and L4 superior endplate compression deformities, new from 01/20/2023 and age indeterminate. Recommend correlation for any point tenderness in these regions.
Subjective Dataa
Subjective Data
Date of Service:
Date of Service: September 22, 2023
Chief Complaint: Front Desk Supervisor Follow Up (Status post aortomesenteric bypass occlusion.) and Pulmonary Follow Up
Subjective:
Pt seen this AM. Remains intubated on CMV 40%/5 with RR 16 and TV 500. HR 87 and BP 85/62. On propofol at 15mcg/kg/min, fentanyl at 75mcg/hr, normosol at 120cc/hr, levophed at 20mcg/min, and PPI gtt. NGT in place and on suction. Patient easily
awakens to voice. Left radial A-line shows good waveform.
Yesterday patient went back to OR due to worsening abdominal exam with worsening leukocytosis and fever. Patient underwent exploratory laparotomy where necrotic/perforated transverse colon was discovered as well as an ischemic left colon/right
colon/terminal ileum and patient underwent subtotal colectomy with distal 70 cm of TI also removed. Peritoneal cultures collected. According to Dr. Andrews, the remainder of the bowel appeared to become progressively worse as the operation proceeded
hence the abdomen was closed with plans to have a relook in 48-72 hours. Bowel was left in discontinuity, skin was left open with dry sterile dressings applied and the incision was closed with a running PDS suture.
Review of Systems
General: Unobtainable - Pat Unresp (Intubated/sedated)
Objective Data
Data Reviewed
Vital Signs / I&O / Oxygen:
Vital Signs
Temp Pulse Resp BP Pulse Ox
99.9 F 89 6 91/55 98
09/22/23 08:00 09/22/23 08:30 09/22/23 08:30 09/22/23 08:00 09/22/23 08:30
Intake and Output
09/21/23 09/22/23 09/23/23
06:59 06:59 06:59
Intake Total 3271 / 3623 6034.2 / 6250.7 433.0 / 433.0
Output Total 3025 / 3025 3195 / 3195 185 / 185
Balance 246 / 598 2839.2 / 3055.7 248.0 / 248.0
SaO2 [A/C] 99
SaO2 98
Nasal Cannula flow liters per 2
minute
Physical Exam
General: Respiratory Distress (n), Comfortable and Other (Sedated)
HEENT: Normocephalic and Anicteric
Cardiovascular: S1-S2, Peripheral Edema (Negative) and Other (Left radial arterial catheter in place)
Respiratory: Wheeze (negative), Crackles (negative), Rhonchi (n), Non-Labored Respirations, Accessory Resp Muscle Use (n), Stridor (n), ET Tube and Other (Mechanical breath sounds heard bilaterally)
GI: Distended, Other (Midline bandages without active bleeding) and Other (Firm abdomen, no peritoneal signs, hypoactive BS)
Neurology: Tremors (negative) and Other (Sedated, easily arousable to voice)
Skin: Warm, Dry, Cyanosis (n) and Jaundice (n)
Labs/Micro/Reports
Lab Data
09/22/23 03:38
Laboratory Results
09/21/23 09/22/23
17:56 03:38
APTT 29.4
pH 7.47 H 7.47 H
pCO2 40 35
pO2 127 H 110 H
HCO3 29.1 H 25.5
O2 Delivery Level
Microbiology
09/20/23 10:03 Blood/Venous Blood Culture - Preliminary
No Growth in 24 hours- Final report to follow
09/20/23 10:11 Blood/Venous Blood Culture - Preliminary
No Growth in 24 hours- Final report to follow
--- NOTE | 2023-09-22 08:26 | W.PN.CRS1 ---
Today's Communication / Plan
-
TPN
hold heparin
likely OR again this week
Assessment/Plan
-
POD#1 Exploratory laparotomy, subtotal colectomy (takedown of splenic flexure)
1. Low grade temps overnight, 100.6 tmax. Hypotensive - on levophed gtt.
2. Sedated with fentanyl gtt.
3. Will likely take back to OR for another look on Friday or Friday this week.
4. Activity - bedrest.
5. Continue garcía due to critical care I/O's.
6. OR pathology pending.
7. Restarting TPN today.
8. Heparin gtt: holding today.
9. Medical management/vent care per primary.
Subjective Data
Procedure
09/21/2023- Exploratory laparotomy, subtotal colectomy (takedown of splenic flexure)
Subjective Data
Date of Service: September 22, 2023
Patient is intubated and unable to respond.
Objective Data
-
Vital Signs
Temp Pulse Resp BP Pulse Ox
99.9 F 81 16 94/52 99
09/22/23 07:58 09/22/23 07:26 09/22/23 06:45 09/22/23 07:26 09/22/23 07:37
Intake & Output
09/21/23 09/22/23 09/23/23
06:59 06:59 06:59
Intake Total 3271 / 3623 6034.2 / 6034.2
Output Total 3025 / 3025 3195 / 3195
Balance 246 / 598 2839.2 / 2839.2
Intake:
IV fluids (Total) 528 / 550 4524.2 / 4524.2
Heparin 288 / 300 18 / 18
Normosol 1680 / 1680
Protonix 240 / 250 210 / 210
calcium 420 / 420
fentanyl 105.0 / 105.0
levophed 952.5 / 952.5
nss 1000 / 1000
propofol 138.7 / 138.7
IV piggybacks 733 / 983 800 / 800
TPN/PPN 1920 / 1999 560 / 560
Amount instilled into GI Tube ( 90 / 90 150 / 150
Total)
Braddock Sump 90 / 90 150 / 150
Output:
Gastrointestinal tube output ( 200 / 200 100 / 100
Total)
Braddock Sump 200 / 200 100 / 100
Urine, García 845 / 845
Urine, Voided 2825 / 2825 2250 / 2250
Other:
How many times incontinent 1
MODERATE amount urine
How many times incontinent 1
SATURATED amount urine
Lab Results
09/22/23 03:38
Physical Exam
-
General: Other (intubated and sedated)
Skin: Warm and Dry
Wound: Dressing Changed
Incision: Clear, Dry, Intact
[2023-09-22] MEDS: MYCAMINE 105 MG IV (09:49)
--- NOTE | 2023-09-22 10:41 | PHA.VAN.FU ---
Vancomycin Assessment / Plan
- Assessment
Renal Function: Stable
WBC's are: Trending Down
Concomitant Antimicrobials: meropenem, micafungin
- Assessment - Therapeutic Drug Monitoring
Extrapolated Cmax (mcg/mL): 28.9
Peak level was drawn: Appropriately (drawn ~1.3H after end of previous infusion)
Extrapolated Cmin (mcg/mL): 12.1
Trough Drawn: Appropriately
Levels were drawn: At steady state (levels drawn after 3rd maintenance dose)
Calculated AUC (mcg*h/mL): 467
Calculated ke: 0.0829
Calculated half life (H): 8.4
Calculated Vd (L): 65 (~0.4 L/kg)
Calculated Vanc CL (ml/min): 89
- Dosing Plan
Continue: Vanc 1250mg Q12H
- Monitoring Plan
Level(s) appropriate: Recheck trough at minimum of weekly intervals, Repeat sooner for changes in renal function or clinical status
Next Level Due (Date): ~09/28
- Follow Up
Pharmacy will continue to follow.
Vancomycin Follow UP
- -
Patient Age: 58
Patient Sex: Male
Vancomycin Day #: 3
Indication: Gi / Intra-Abdominal
Requesting Provider: Dr. Marks
Pertinent Antimicrobial Allergies:
NKDA
Height / Weight:
Height 5 ft 11 in
Actual Weight 86.2 kg
IBW in k.3
- Vital Signs / Lab Results
Temp Pulse Resp BP Pulse Ox
99.9 F 89 6 91/55 98
09/22/23 08:00 09/22/23 08:30 09/22/23 08:30 09/22/23 08:00 09/22/23 08:30
Lab Results - Hematology
09/19/23 09/20/23 09/21/23
15:45 05:42 03:49
WBC Cancelled 24.7 H 28.9 H
09/21/23 09/22/23
17:37 03:38
WBC 26.3 H 23.2 H
Lab Results - Chemistry
09/19/23 09/20/23 09/20/23
17:08 00:49 05:42
BUN 17 15 16
Creatinine 0.7 0.7 0.7
Estimated Creat Clear 120 120 120
Albumin
09/21/23 09/21/23 09/21/23
03:49 17:37 23:38
BUN 16 16 19
Creatinine 0.7 0.6 L 0.6 L
Estimated Creat Clear 120 > 125 > 125
Albumin 1.3 L
09/22/23
03:38
BUN 19
Creatinine 0.6 L
Estimated Creat Clear > 125
Albumin 1.2 L
09/19/23 09/19/23 09/19/23
10:37 17:00 17:08
Lactic Acid 2.0 Cancelled 1.7
09/19/23 09/20/23 09/20/23
23:00 02:07 05:42
Lactic Acid Cancelled 1.4 1.8
09/21/23
17:38
Lactic Acid 1.5
Microbiology Results
09/20/23 10:03 Blood Culture - Preliminary
Blood/Venous No Growth in 48 hours- Final report to follow
09/20/23 10:11 Blood Culture - Preliminary
Blood/Venous No Growth in 48 hours- Final report to follow
09/21/23 15:00 Gram Stain - Preliminary
Abdomen
Therapeutic Drug Monitoring
Vancomycin Peak 25.9 ug/ml (18-26) 09/21/23 20:48
Vancomycin Trough 14.7 ug/ml (5-20) 09/22/23 03:38
--- NOTE | 2023-09-22 10:42 | W.PN.ID1 ---
Date of Service
Date of Service: September 22, 2023
Today's Communication
- continue meropenem, micafungin, vancomycin for now - deescalation pending course
Assessment / Plan
Suspected developing secondary peritonitis
Leukocytosis
Total SMA graft occlusion s/p thrombectomy/patch
Acute mesenteric ischemia - ongoing
Resolving Shock Liver
Noncompliance
- blood cultures x2
- no abdominal drains at this time; no definite organized collections
- echo pending
- continue meropenem, micafungin, vancomycin for now - deescalation pending course
- follow clinically
Chief Complaint
-: Leukocytosis and Other (secondary peritonitis)
Subjective / Review of Systems
fevers noted
increasing norepi requirements
improved leukocytosis
cr stable
uncorrected ca low this am
lfts normal
cxr clear lung h[place]
wound cultures no growth to date - gram stain neg, anaerobic pending
OR findings reviewed and concerning:
Necrotic and perforated entire transverse colon
� � � � � � � � � � � � � � � Ischemic right colon and terminal ileum
� � � � � � � � � � � � � � � Ischemic left colon
� � � � � � � � � � � � � � � At the end of the case, ? ischemia of the proximal jejunum
� � � � � � � � � � � � � � � Planned 2nd look operation in 48-72 hours
Vital Signs / Physical Exam
Vital Signs
Vital Signs
Temp Pulse Resp BP Pulse Ox
99.9 F 89 6 91/55 98
09/22/23 08:00 09/22/23 08:30 09/22/23 08:30 09/22/23 08:00 09/22/23 08:30
Physical Exam
Constitutional: No Acute Distress, Chronically Ill and Other (intubated, sedated)
Cardiovascular: Regular Rate and S1/S2; Negative Murmur or Rub
Pulmonary: Clear and Symmetric; Negative Wheezes or Rales
Gastrointestinal: Soft, Non Tender, Non Distended and Normal Bowel Sounds
Skin: Warm and Dry; Negative Rash or Jaundice
Wound: Other (dressing clean, dry, intact)
Objective Data
Lab Data
PT 17.8 Sec (11.4-14.6) H 09/13/23 03:17
INR 1.49 09/13/23 03:17
APTT 29.4 Sec (23.4-35.0) 09/22/23 03:38
Estimated Creat Clear > 125 ml/min 09/22/23 03:38
Lactic Acid 1.5 mmol/L (0.7-2.0) 09/21/23 17:38
Total Bilirubin 3.4 mg/dl (0.2-1.3) H 09/22/23 03:38
AST 50 U/L (17-59) 09/22/23 03:38
ALT 36 U/L (0-50) 09/22/23 03:38
Alkaline Phosphatase 86 U/L (38-126) 09/22/23 03:38
Most recent labs reviewed.
Micro Results:
09/20/23 10:03 Blood Culture - Preliminary
Blood/Venous No Growth in 48 hours- Final report to follow
09/20/23 10:11 Blood Culture - Preliminary
Blood/Venous No Growth in 48 hours- Final report to follow
09/21/23 15:00 Wound Culture - Pending
Abdomen Gram Stain - Preliminary
09/21/23 15:00 Anaerobic Culture - Pending
Peritoneal Fluid
09/12/23 18:05 Blood Culture - Final
Blood/Venous No Growth - Final Report
09/12/23 18:05 Influenza Types A & B (ALAN) - Final
Nasal Swab Negative for Influenza A & B, NAAT
Negative results must be combined with clinical observations
and patient history.
Nucleic Acid Amplification test (NAAT)performed on the
[employer] platform.
[2023-09-22 11:01] LABS: Blood Urea Nitrogen 20 mg/dl (9-20); Calcium 6.8 mg/dl (8.4-10.2); Carbon Dioxide 25 mmol/L (22-30); Chloride 99 mmol/L (98-107); Estimated Creatinine Clearance 120 ml/min; Glucose 166 mg/dl (70-99); Potassium 4.4 mmol/L (3.5-5.1); Sodium 127 mmol/L (135-145); eGFR > 60.00
[2023-09-22] MEDS: HEPARIN 5000 UNITS SC ×3 (11:34→23:14)
[2023-09-22] MEDS: FLEXBUMIN 100 IV ×3 (12:02→23:12)
--- NOTE | 2023-09-22 12:10 | W.PN.VS ---
Addendum entered and electronically signed by Ayaz Chavez III, MD 09/22/23 19:44:
This patient was seen and examined with AVIVA Ramirez. I agree with the history and physical exam as well as the assessment and plan. I have the following additions:
Resume heparin drip when okay from colorectal surgery
Will follow along
Signed:
Ayaz Chavez III, MD
[facility] V[facility] Surgery
[phone] (cell)
Original Note:
Today's Communication / Plan
-
Patient seen and examined at bedside with Dr. Ayaz Chavez III, below plan reviewed with attending.
Assessment/Plan
-
POD 9 Exploratory laparotomy, lysis of adhesions, aortomesenteric bypass nick thrombectomy, mesenteric arteriogram, patch angioplasty of aortomesenteric bypass, s/p Exploratory laparotomy, subtotal colectomy (takedown of splenic flexure) with
colorectal
Plan:
-Would reinitiate heparin infusion once cleared by colorectal
-Continue close monitoring with repeat labs, will follow along
Subjective Data
-
Date of Service: September 22, 2023
Patient seen and examined, currently intubated and sedated.
Objective Data
-
Vital Signs
Temp Pulse Resp BP Pulse Ox
100.2 F 89 6 91/55 99
09/22/23 11:00 09/22/23 08:30 09/22/23 08:30 09/22/23 08:00 09/22/23 11:19
Intake and Output
09/21/23 09/22/23 09/23/23
06:59 06:59 06:59
Intake Total 3271 / 3623 6034.2 / 6250.7 1198.6 / 1198.6
Output Total 3025 / 3025 3195 / 3195 530 / 530
Balance 246 / 598 2839.2 / 3055.7 668.6 / 668.6
Intake:
IV fluids (Total) 528 / 550 4524.2 / 4740.7 1093.6 / 1093.6
Heparin 288 / 300 18 18
Normosol 1680 / 1800 600 / 600
Protonix 240 / 250 210 / 220 50 / 50
calcium 420 / 420
fentanyl 105.0 / 112.5 37.5 / 37.5
levophed 952.5 / 1023.8 367.6 / 367.6
nss 1000 / 1000
propofol 138.7 / 146.4 38.5 / 38.5
IV piggybacks 733 / 983 800 / 800 105 / 105
TPN/PPN 1920 / 1999 560 / 560
Amount instilled into GI Tube ( 90 / 90 150 / 150
Total)
[place]uchanan Sump 90 / 90 150 / 150
Output:
Gastrointestinal tube output ( 200 / 200 100 / 100
Total)
[place]uchanan Sump 200 / 200 100 / 100
Urine, Chavez 845 / 845 530 / 530
Urine, Voided 2825 / 2825 2250 / 2250
Other:
How many times incontinent 1
MODERATE amount urine
How many times incontinent 1
SATURATED amount urine
Lab Results
09/22/23 10:31
Calcium 6.8 mg/dl (8.4-10.2) L* 09/22/23 10:31
Phosphorus 4.1 mg/dl (2.5-4.5) 09/22/23 03:38
Magnesium 1.8 mg/dl (1.6-2.3) 09/22/23 03:38
Total Bilirubin 3.4 mg/dl (0.2-1.3) H 09/22/23 03:38
Direct Bilirubin Cancelled 09/15/23 18:00
AST 50 U/L (17-59) 09/22/23 03:38
ALT 36 U/L (0-50) 09/22/23 03:38
Alkaline Phosphatase 86 U/L (38-126) 09/22/23 03:38
Total Protein 3.1 g/dl (6.3-8.2) L 09/22/23 03:38
Albumin 1.2 g/dl (3.5-5.0) L 09/22/23 03:38
Physical Exam
-
Intubated and sedated
No tachycardia
Synchronous with ventilator
Abdomen distended, soft, midline surgical dressing CDI
BL LE feet warm
[2023-09-22 12:21] LABS: Glucose - Point of Care 142 mg/dl (70-99)
--- NOTE | 2023-09-22 14:08 | CM ---
CM following re: discharge planning.
Discussed in rounds, reviewed pt's chart, met with pt and pt's ex-spouse Mirian at bedside. Pt is POD#1 Exploratory laparotomy, remains intubated, continue supportive carte.
CM met with pt's spouse Mirian and she stated that pt's HR department requested to complete a form for a short term disability. E:Mail address provided and the form will be given to MD to complete.
PT and OT recommended SNF level of care. PT and OT will reevaluate when clinically appropriate to confirm a level of care at discharge.
D/C plan: SNF level of care when medically stable. Pt has a list of SNFs.
CM will follow with discharge plan updates as hospitalization progresses
--- NOTE | 2023-09-22 14:17 | PTCARENOTE ---
Patient received in AM with assessment as noted. Continues intubated and sedated with Fentanyl and Propofol. -2 RASS maintained. Patient awakens to voice and then returns to sleep. Soft wrist restraints maintained for patient safety with current
order on chart and documentation as noted. NSR on monitor. T-max 100.2 core at 1200. Ofirmev 1000 mg IV given with 1400 follow up up of 99.5 core. Levophed infusing at 20 mcg/min to maintain MAP's >65. Lungs decreased in bases bilaterally, otherwise
coarse through out. Sao2 99% on vent setting A/C 16-500-40% peep 5. Suctions for scant choe/white secretions. Bowel sounds absent. Right nares [place]-sump to suction with bile green/brown output noted. Chavez draining jovani urine. Midline ABD dressing
changed at bedside this morning by . BMP obtained at 1000 and updated to results. No orders given. Family into visit and updated to patient condition. Patient currently in bed with side rails up and soft wrist restraints in
place.
[2023-09-22 16:11] LABS: Hematocrit 24.8 % (39.0-52.0); Hemoglobin 8.6 g/dL (13.0-18.0); Mean Corp Hgb Conc. 34.7 g/dL (33.0-37.0); Mean Corpuscular Hgb 30.9 pg (27.0-31.0); Mean Corpuscular Volume 89.2 fL (80.0-94.0); Mean Platelet Volume 13.7 fL (7.4-10.4); Platelet Count 217 10^3/uL (130-400); Red Blood Cell Count 2.78 10^6/uL (4.70-6.10); Red Cell Dist. Width 15.2 % (11.5-14.5); Urine Albumin Negative (Neg - Trace); Urine Bilirubin 1+ (Negative); Urine Character Clear (Clear); Urine Color Yellow; Urine Glucose Negative (Negative); Urine Ketone Trace (Negative); Urine Leukocyte Negative (Negative); Urine Nitrite Negative (Negative); Urine Occult Blood Negative (Negative); Urine Specific Gravity 1.015 (<1.030); Urine Urobilinogen Negative (Neg - 1+); White Blood Cell Count 25.4 10^3/uL (4.8-10.8)
[2023-09-22 16:12] LABS: Ionized Calcium 1.04 mMOL/L (1.15-1.33)
[2023-09-22 16:23] LABS: Osmolality Urine 485 mOsm/kg (300-900)
[2023-09-22 16:29] LABS: Uric Acid 1.9 mg/dl (3.5-8.5)
[2023-09-22 16:35] LABS: Urine Sodium < 5 mmol/L (30-90)
[2023-09-22] MEDS: LEVOPHED 258 MG IV (16:55)
--- NOTE | 2023-09-22 17:41 | W.PN.ONC2 ---
Today's Communication / Plan
-
Pt currently on pressors, antibiotics.
Plan is noted for return to OR 09/22 or 09/23 due to concern for small intestine ischemia at conclusion of case in OR yesterday
To resume heparin gtt when cleared by Surgery.
Impression
Impression
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
s/p ex lap, OSKAR, aorto-mesenteric bypass thrombectomy, mesenteric arteriogram, patch angioplasty of aorto-mesenteric bypass 09/13/23
Current smoker
Leukocytosis
Neutrophilia
Mild thrombocytopenia
Hx DVT s/p orthopedic surgery after anticoagulation discontinued (2020)
Family hx of VTE
Plan
Plan
s/p 09/12 Exploratory laparotomy, lysis of adhesions, aorto-mesenteric bypass Tona thrombectomy, mesenteric arteriogram, patch angioplasty of aorto-mesenteric bypass 09/12
s/p 09/20 Exploratory laparotomy with subtotal colectomy and takedown of splenic flexure (no anastomosis or ostomy) for ischemic colon
Polycythemia at time of admission, possibly due to smoking
Persistent leukocytosis
Subjective/Objective
Chief Complaint
Heme follow up of acute mesenteric ischemia, possible hypercoag state
Subjective
Denies new complaint
Vital Signs:
Vital Signs
Temp Pulse Resp BP Pulse Ox
99.5 F 76 15 109/48 100
09/22/23 15:14 09/22/23 16:30 09/22/23 16:30 09/22/23 16:00 09/22/23 16:30
Lab Results:
Laboratory Data
WBC 25.4 10^3/uL (4.8-10.8) H 09/22/23 15:57
Hgb 8.6 g/dL (13.0-18.0) L D 09/22/23 15:57
Plt Count 217 10^3/uL (130-400) 09/22/23 15:57
PT 17.8 Sec (11.4-14.6) H 09/13/23 03:17
INR 1.49 09/13/23 03:17
APTT 29.4 Sec (23.4-35.0) 09/22/23 03:38
eGFR > 60.00 09/22/23 10:31
Physical Exam
Intubated, sedate
[2023-09-22] MEDS: NOVOLOG FLEXPEN-LOW RESISTANCE 1 UNITS SC ×2 (17:47→23:13)
[2023-09-22 17:55] LABS: Glucose - Point of Care 178 mg/dl (70-99)
[2023-09-22] MEDS: NSS (PRESERVATIVE FREE) 10 ML IV (19:20)
[2023-09-22] MEDS: PROTONIX IV 40 MG IV (19:20)
--- NOTE | 2023-09-22 20:00 | PTCARENOTE ---
Rec'd pt w/ wrists restrained for pt safety, follows simple commands, ELO at 2mm, sluggish, diprivan gtt at 15 keyanna, fent gtt at 75 keyanna, SR left rad colin w/ good wave form, flushes well, zeroed, to keep map > 65, levophed gtt at 17 keyanna- see flow
sheet for titrations, weak distal pulses, + anasarca, #8 oral ett- moved to R lip at 25 cm, lungs coarse, decr in bases, scant clear secretions, ac 14, tv 450, 5 peep, 40 %, sat 100; no bowel sounds, no bm, R nares [place] to low cont wall suction
draining brown/green liquid, irrigated q4hr w/ 30 tap h20, abd dsg dry, thermister garcía draining jovani urine
[2023-09-22] MEDS: Parenteral Nutrition, Central 1440 IV (20:43)
[2023-09-22 23:21] LABS: Glucose - Point of Care 191 mg/dl (70-99)
--- NOTE | 2023-09-22 23:56 | PTCARENOTE ---
sys reviewed, weaning levophed as alexandro keeping MAP > 65, CHG bath done, linens changed
[2023-09-23] VITALS (18 sets, daily range): BP systolic 86–129; BP diastolic 49–67; BMI 27.8
[2023-09-23] MEDS: SUBLIMAZE 50 MCG IV (00:56)
[2023-09-23] MEDS: LEVOPHED 258 MG IV ×2 (01:15→15:02)
[2023-09-23] MEDS: STERILE WATER FOR INJECTION 10 ML IV ×4 (03:41→21:27)
[2023-09-23] MEDS: MERREM 500 MG IV ×4 (03:41→21:27)
[2023-09-23 03:43] LABS: B.E. 3.6 mmol/L; HCO3 27.7 mmol/L (21-28); Mean Corp Hgb Conc. 33.3 g/dL (33.0-37.0); Mean Corpuscular Hgb 29.9 pg (27.0-31.0); Mean Corpuscular Volume 89.7 fL (80.0-94.0); Mean Platelet Volume 13.9 fL (7.4-10.4); O2 Saturation % 98.5 % (94-98); PCO2 39 mmHg (35-48); PO2 77 mmHg (83-108); Platelet Count 251 10^3/uL (130-400); Red Blood Cell Count 2.34 10^6/uL (4.70-6.10); Red Cell Dist. Width 15.5 % (11.5-14.5); White Blood Cell Count 21.6 10^3/uL (4.8-10.8); pH 7.46 (7.35-7.45)
[2023-09-23 03:45] LABS: O2 Therapy 40%
--- NOTE | 2023-09-23 04:00 | PTCARENOTE ---
sys reviewed, changes noted;ett repos on left side at 25 cm
[2023-09-23] MEDS: SUBLIMAZE 100 IV ×2 (04:29→13:15)
--- NOTE | 2023-09-23 05:07 | PTCARENOTE ---
B KATHY Bernard aware of hgb- type & screen sent per order
[2023-09-23] MEDS: VANCOCIN 275 MG IV ×2 (05:08→19:15)
[2023-09-23 05:14] LABS: Glucose - Point of Care 197 mg/dl (70-99)
[2023-09-23] MEDS: NOVOLOG FLEXPEN-LOW RESISTANCE 1 UNITS SC (05:14)
[2023-09-23 05:54] LABS: ALT (SGPT) 18 U/L (0-50); AST (SGOT) 31 U/L (17-59); Albumin 1.8 g/dl (3.5-5.0); Alkaline Phosphatase 44 U/L (38-126); Blood Urea Nitrogen 18 mg/dl (9-20); Calcium 7.1 mg/dl (8.4-10.2); Carbon Dioxide 26 mmol/L (22-30); Chloride 101 mmol/L (98-107); Estimated Creatinine Clearance 120 ml/min; Glucose 181 mg/dl (70-99); Magnesium 1.9 mg/dl (1.6-2.3); Phosphorus 2.6 mg/dl (2.5-4.5); Potassium 3.7 mmol/L (3.5-5.1); Sodium 128 mmol/L (135-145); Total Bilirubin 1.8 mg/dl (0.2-1.3); Total Protein 3.6 g/dl (6.3-8.2); eGFR > 60.00
[2023-09-23] MEDS: CALCIUM GLUCONATE 130 MG IV (06:28)
--- NOTE | 2023-09-23 06:29 | PTCARENOTE ---
3 gm tasia gluconate over 1hr hung per order
[2023-09-23] MEDS: DIPRIVAN 100 IV ×2 (07:08→15:14)
[2023-09-23] MEDS: PROTONIX IV 40 MG IV ×2 (07:56→19:16)
[2023-09-23] MEDS: NSS (PRESERVATIVE FREE) 10 ML IV ×2 (07:57→19:16)
[2023-09-23] MEDS: LASIX 40 MG IV (07:57)
[2023-09-23] MEDS: ASPIRIN 300 MG RECTAL (07:58)
--- NOTE | 2023-09-23 08:16 | W.PN.HOSP.TC ---
Today's Communication/Plan
-
CW Antimicrobials and antifungals
Follow HH closely and transfuse to keep HH >7.0
Increase dose of lasix and follow I/0
CW Vent support .
Wean pressors as able.
Assessment / Plan
Assessment / Plan
Assessment:
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
- s/p Exploratory laparotomy, lysis of adhesions, aorto-mesenteric bypass Tona thrombectomy, mesenteric arteriogram, patch angioplasty of aorto-mesenteric bypass 09/12
- CT-A 09/13 showing patient bypass, concern for bowel ischemia
- With persistent abdominal pain and drop in hemoglobin repeat CT abdomen pelvis angiogram was done which was markedly abnormal. Vascular, general surgery and radiology input regarding the abnormal findings noted.
-There is s/p exploratory laparotomy 09/20 Necrotic and perforated entire transverse colon
� � � � � � � � � � � � � � � Ischemic right colon and terminal ileum
� � � � � � � � � � � � � � � Ischemic left colon
� � � � � � � � � � � � � � � At the end of the case, ? ischemia of the proximal jejunum
Distal to 70 cm of terminal colon with entire right colon, transverse colon and descending colon removed.
Plan is for second look operation in 24 to 48 hours.
Colorectal surgery following.
Resume IV heparin if appropriate.
CW ABX and antifungal per ID;OR cx taken-pending results.
Fever curve noted. Blood cx pre op neg.
Hematology input about thrombophilia assessments noted - transition into DOAC once off of IV heparin and follow with her in offfice for work up.
Postop shock-patient currently on vasopressors. Suspect mulitfactorial including septic and acute blood loss anemia. Currently on broad-spectrum antibiotics and antifungal and elevated white count noted. ECHO with normal EF and no significant
VHD. Check procalcitonin. Wean vasopressors as able.
VDRF -on vent postop . Wean per pulmonary. Ore Roaster following. With current clinical situation and plan for repeat laprotomy not a candidate for extubation trials.
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
Bilateral pleural effusion with underlying bilateral consolidation right more than left-suspect fluid shifts and hypoalbunemia ;wt is up . BNP only minimally elevated; ECHO with normal EF .Concentrate all iv meds as much as possible. Increase IV
lasix dose .Hyponatremia noted -possible sec to fluid overload.
CAD s/p prior hx of NSTEMI -asymptomatic without chest pain. On aspirin at home.
Anemia -severe -needing blood transfusion-related to acute blood loss anemia. [place] multifactorial including some GI blood loss, hematomas. hemodynamically stable. HH drop since second surgery noted. No external bleeding . Eval for internal
bleeding ;also check hemolysis panel.[facility] HH later today . Aim to keep HH >7.0.continue with Protonix twice a day.
Hyperbilirubinemia-mostly indirect elevation-possible Gilbert's +_ hemtomas related. Continue to follow.
Hyponatremia - suspect fluid overload realted . Urine lytes. Increase lasix . If becomes severely low will consult Nephro for [place].
Hypocalcemia -replete
Hx of DVT status post apixaban 03/2021 post left knee surgery
Chronic back pain-recent steroid taper. Continued mid back pain which is a equally troubling. No sciatica . plain xrays show loss of height of superior endplate t12,l4 . Pt had pull while lifting something at home but no fall or trauma .cw
symptomatic tx
Hyperglycemia
No hx of DM
HbA1C 5.8
Tobacco abuse- remains actively smoking
Nutrition-resumed TPN . Hypoalbuminemia severe noted.
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
DVT ppx: IV Heparin when appropriate from surgery
Code: Full
Total Critical Care Time__38___ minutes. I was immediately available to the patient and staff. I personally examined, reviewed labs, diagnostic images/reports, interpretations, treatment plans, discussed patient care with other providers and
family or caregivers (if patient is unable to make decisions), entered orders as appropriate and documented the medical record.
Anticipated Discharge: > 48 hours
Subjective/Interval History
-
Date of Service: September 23, 2023
Sedation down ,pt awake a bit.
Able to follow some verbal commands .
Remains intubated and sedated on fentanyl.
Objective Data
-
Labs:
Laboratory Results
09/23/23 09/23/23
03:37 04:46
WBC 21.6 H
Hgb 7.0 L
Hct 21.0 L
Plt Count 251
HCO3 27.7
Sodium Cancelled 128 L
Potassium Cancelled 3.7
Chloride Cancelled 101
Carbon Dioxide Cancelled 26
BUN Cancelled 18
Creatinine Cancelled 0.7
Glucose Cancelled 181 H
Calcium Cancelled 7.1 L
Total Bilirubin Cancelled 1.8 H D
AST Cancelled 31
ALT Cancelled 18
Alkaline Phosphatase Cancelled 44
Vital Signs:
Vital Signs
Temp Pulse Resp BP Pulse Ox
100.1 F 93 17 112/54 99
09/23/23 07:53 09/23/23 07:57 09/23/23 06:00 09/23/23 07:57 09/23/23 07:25
I&O
09/22/23 09/23/23 09/24/23
06:59 06:59 06:59
Intake Total 6034.2 / 6250.7 4818.4 / 4818.4
Output Total 3195 / 3195 1949 / 1950
Balance 2839.2 / 3055.7 2868.4 / 2868.4
Review of Systems
-
Unable to obtain full review of systems at this time due to: Patient Intubation
Physical Exam
-
General: No Apparent Distress
Respiratory: Clear to Auscultation (anteriorly)
Cardiac: Regular Rhythm, S1/S2 and Tachycardic
GI: Soft; Negative Normal Bowel Sounds
Genito-urinary: Other (scrotal edema)
Musculoskeletal: Edema, Right Lower Extrem and Edema, Left Lower Extrem
Neuro: Awake; Negative Alert
Psych: Calm
Data Reviewed
-
Labs: Labs Reviewed by me
--- NOTE | 2023-09-23 08:50 | W.PN.INTV ---
Today's Communication / Plan
Recommendations
Keep intubated with plans for back to the OR today as per colorectal surgery given bowel is currently in discontinuity
Considering GI felt that GI bleed that occurred recently was due to ischemic colitis, and patient has ischemic bowel that is stemming from aorto-mesenteric bypass thrombosis, I would favor starting systemic anticoagulation as soon as safe to do so
Transfuse as needed to keep Hb >7, plt>50 K
Abx as per ID
Pain control
TPN as per surgery
Prognosis guarded
Assessment
-
58-year-old man with past medical history noted, admitted to the emergency room with abdominal pain. Found to have bowel ischemia due to occlusion of prior aortic mesenteric bypass. Apparently patient stopped taking Plavix and statin since January
2022. Only on aspirin, emergently taken to the operating room. Transferred to the critical care unit, we were consulted for critical care management.
Impression:
- Ventilator dependent respiratory failure
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
- Status post exploratory laparotomy, lysis of adhesions, aortomesenteric bypass nick thrombectomy, mesenteric arteriogram, patch angioplasty of aortomesenteric bypass graft (OR date: 09-13-2023)
- Ischemic bowel c/b necrosis s/p ex-lap with subtotal colectomy with splenic flexure takedown and distal 70cm of TI also removed (OR date: 09/21/2023)
- GI bleed - Hb stable for >24 hrs and no current signs of active bleed - GI bleed was likely due to ischemic colitis
- Anemia due to acute blood loss
- Leukocytosis due to mesenteric ischemia
- Hyponatremia due to SIADH (acute on chronic - baseline Na approx 131-134) - SIADH is likely due to recent surgery
- Hyperglycemia
- Lactic acidosis - resolved
- Left flank ecchymosis
- Wheezing - resolved
- Bilateral pleural effusions left greater than right
Conditions present prior admission:
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
graft bypass into the celiac and SMA vessels.
Tobacco abuse
PFT's 06-19- with moderate airflow obstruction with some reversibility postbronchodilator on spirometry.-Not on bronchodilators
Moderate COPD/emphysema-not seen by pulmonary in the outpatient office for
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
History of left gastric anemic DVT status post apixaban 03/2021 post left knee surgery
History lumbar vasectomy
Chronic back pain-recent steroid taper
Plan
Patient continues to be critically on mechanical ventilation and in shock on vasopressors
Awaiting to go to OR today for re-evaluation of small bowel
Underwent colorectal surgery on 09/20 with necrotic/perforated transverse colon seen and ischemic bowel including the right colon, 70 cm of the terminal ileum and the left colon and the proximal jejunum was also becoming possibly ischemic towards the
end of the procedure. The bowel was left in discontinuity and was divided with 1 firing of the contour stapler. The left colon was resected with the proximal end left open.
Going back to OR today for re-look to re-assess small bowel - my assumption is that he will need an ileostomy
Continue TPN in meantime and I discussed starting AC with vascular surgery and colorectal, and considering his recent GI bleed, we started chemical DVT ppx on 09/21; hold off on resuming therapeutic AC at this time
Continue mechanical ventilation with daily SAT/SBT, titrating FiO2 and PEEP to keep SpO2 >90-94% and keep PIP<30, plataeu pressure <30
VAP precautions
Nebulizers as needed-intermittently with wheezing-currently resolved
Postoperative management as per colorectal/general surgery and vascular surgery -correspondence reviewed and recommendations are appreciated
POD#10 exploratory laparotomy, lysis of adhesions, aortomesenteric bypass nick thrombectomy, mesenteric arteriogram, patch angioplasty of aortomesenteric bypass
POD#2 subtotal colectomy
Antibiotics per surgery-was on Zosyn-changed to meropenem (started on 09-19 in addition to micafungin and IV vancomycin)
Follow cultures - sujatha seen on peritoneal culture from OR on 09-21-2023
Infectious disease consultation noted-correspondence reviewed
NGT to suction
Pain management
Maintain MAP>65
Monitor hemoglobin
Transfuse as needed to keep Hb>7, plt>50k
GI evaluation-correspondence reviewed-no acute GI intervention recommended at this point
Continue PPI 40mg IV BID
Monitor renal function
Replace electrolytes as needed
Previously noted to have some hypoglycemia
Dextrose if needed
Continue TPN per surgery
Trend serum Na
Monitor liver functions
Smoking cessation counseling ongoing - not currently relevant; we can address this if pt is extubated
DVT prophylaxis- continue heparin SQ 5000 units q8hr
Nutrition per surgery and vascular surgery
Note: Dr. Raman reviewed with ex- at the bedside with patient's permission-reviewed case 09/20/2023
Critical care statement: A total of 37 minutes of critical care time was provided for this patient today. This includes management of unstable vital signs, evaluation of the patient at bedside, reviewing the patient's pertinent medical records
including radiographs, transfusion management, pressor management, microbiology, laboratory evaluations, and discussion with primary team, consultants, pharmacy, nutrition, physical therapy, case management, charge nurse, critical care nursing, and
respiratory therapy.
Data:
CXR 09-21-2023: Endotracheal tube has been inserted with tip 2.3 cm above the yue.
CXR 09-23-2023: Bibasilar opacification most likely representing subsegmental atelectasis, left greater than right.
CTA Abd/Pelvis with/without IV contrast 09-19-2023:
Markedly abnormal examination. No definite findings to suggest an acute retroperitoneal hemorrhage, however there is an increase in free fluid throughout the abdomen and pelvis.
There are small collections of intermediate density throughout the mesentery, concerning for small mesenteric hematomas.
Increased bilateral pleural effusions left greater than right and increased bibasilar consolidation.
As previously noted there is small bowel and large bowel wall thickening. Concerning for ischemia particularly in the transverse colon with increased stranding and inflammatory appearance.
Persistent free air and free fluid, concerning for an occult perforation, no definite site identified.
Celiac axis/SMA bypass graft similar to previous exam.
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 Chavez at 4:00 PM.
Left transversus abdominis intramuscular hematoma. Slightly increased compared to previous exam. Increased bilateral flank edema. Left greater than right. Consistent with the clinical concern for increased bruising.
CTA Abd/Pelvis with/without contrast 09-14-2023:�
Moderate small bowel wall and large bowel wall thickening as described above. Ischemia cannot be excluded.
Free air and free fluid in the abdomen and pelvis likely postsurgical change - new
Celiac axis/SMA bypass graft.
Moderate bibasilar consolidation - new
Chavez catheter present - new
Mild prostate hypertrophy - stable
CTA Abd/Pelvis with/without contrast 09-12-2023:
1. Complete occlusion of the celiac/SMA bypass graft as described.
2. Mild bilateral lower lobe infectious/inflammatory bronchiolitis change.
3. Mild T12 and L4 superior endplate compression deformities, new from 01/20/2023 and age indeterminate. Recommend correlation for any point tenderness in these regions.
Subjective Dataa
Subjective Data
Date of Service:
Date of Service: September 23, 2023
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
Subjective:
Pt seen this AM. Going to OR today. Hb 7 this AM and no clinical Sx of bleeding seen per RN. BP this AM 86/49, HR 93 and SpO2 98%. ETCO2 50. On VC-CMV at 450/14/40%/5. He does open his eyes to voice and is following commands.
Review of Systems
General: Unobtainable - Pat Unresp
Objective Data
Data Reviewed
Vital Signs / I&O / Oxygen:
Vital Signs
Temp Pulse Resp BP Pulse Ox
100.1 F 93 17 112/54 99
09/23/23 07:53 09/23/23 07:57 09/23/23 06:00 09/23/23 07:57 09/23/23 07:25
Intake and Output
09/22/23 09/23/23 09/24/23
06:59 06:59 06:59
Intake Total 6034.2 / 6250.7 4818.4 / 4818.4
Output Total 3195 / 3195 1950 / 1950
Balance 2839.2 / 3055.7 2868.4 / 2868.4
SaO2 [A/C] 100
SaO2 99
Nasal Cannula flow liters per 2
minute
Physical Exam
General: Respiratory Distress (n), Comfortable and Other (intubated and in NAD)
HEENT: Normocephalic and Anicteric
Cardiovascular: S1-S2, Peripheral Edema (Negative) and Other (Left radial arterial catheter in place)
Respiratory: Wheeze (negative), Crackles (negative), Rhonchi (n), Non-Labored Respirations, Accessory Resp Muscle Use (n), Stridor (n), ET Tube and Other (Mechanical breath sounds heard bilaterally; coarse BS b/l)
GI: Distended, Non Tender, Other (Midline bandages without active bleeding) and Other (Firm abdomen, no peritoneal signs, hypoactive BS)
Neurology: Awake, Alert and Tremors (negative)
Skin: Warm, Dry, Cyanosis (n) and Jaundice (n)
Labs/Micro/Reports
Lab Data
09/23/23 04:46
Laboratory Results
09/23/23
03:37
pH 7.46 H
pCO2 39
pO2 77 L
HCO3 27.7
O2 Delivery Level 40%
Microbiology
09/21/23 15:00 Abdomen Wound Culture - Preliminary
Sujatha albicans
09/21/23 15:00 Abdomen Gram Stain - Preliminary
09/20/23 10:03 Blood/Venous Blood Culture - Preliminary
No Growth in 48 hours- Final report to follow
09/20/23 10:11 Blood/Venous Blood Culture - Preliminary
No Growth in 48 hours- Final report to follow
[2023-09-23] MEDS: HEPARIN 5000 UNITS SC ×3 (09:00→23:06)
--- NOTE | 2023-09-23 09:43 | PHA.VAN.FU ---
Vancomycin Assessment / Plan
- Assessment
Renal Function: Stable
WBC's are: Trending Down
Concomitant Antimicrobials: meropenem, micafungin
- Dosing Plan
Continue: Vanc 1250mg Q12H
- Monitoring Plan
Level(s) appropriate: Recheck trough at minimum of weekly intervals, Repeat sooner for changes in renal function or clinical status
Next Level Due (Date): ~09/28 --> may consider sooner with critical illness to ensure stable
- Follow Up
Pharmacy will continue to follow.
Vancomycin Follow UP
- -
Patient Age: 58
Patient Sex: Male
Vancomycin Day #: 4
Indication: Gi / Intra-Abdominal
Requesting Provider: Dr. Marks
Pertinent Antimicrobial Allergies:
NKDA
Height / Weight:
Height 5 ft 11 in
Actual Weight 90.5 kg
IBW in k.3
- Vital Signs / Lab Results
Temp Pulse Resp BP Pulse Ox
100.1 F 96 15 129/58 99
09/23/23 07:53 09/23/23 09:30 09/23/23 09:30 09/23/23 08:00 09/23/23 09:30
Lab Results - Hematology
09/21/23 09/21/23 09/22/23
03:49 17:37 03:38
WBC 28.9 H 26.3 H 23.2 H
09/22/23 09/23/23
15:57 03:37
WBC 25.4 H 21.6 H
Lab Results - Chemistry
09/21/23 09/21/23 09/21/23
03:49 17:37 23:38
BUN 16 16 19
Creatinine 0.7 0.6 L 0.6 L
Estimated Creat Clear 120 > 125 > 125
Albumin 1.3 L
09/22/23 09/22/23 09/23/23
03:38 10:31 03:37
BUN 19 20 Cancelled
Creatinine 0.6 L 0.7 Cancelled
Estimated Creat Clear > 125 120 Cancelled
Albumin 1.2 L Cancelled
09/23/23
04:46
BUN 18
Creatinine 0.7
Estimated Creat Clear 120
Albumin 1.8 L
09/21/23
17:38
Lactic Acid 1.5
Lab Results - Urine
09/22/23
15:57
Urine Nitrite Negative
Ur Leukocyte Esterase Negative
Microbiology Results
09/21/23 15:00 Anaerobic Culture - Preliminary
Peritoneal Fluid Culture pending. Anaerobic cultures are examined after 3
days incubation. Additional information to follow.
09/21/23 15:00 Wound Culture - Preliminary
Abdomen Sujatha albicans
Gram Stain - Preliminary
09/20/23 10:03 Blood Culture - Preliminary
Blood/Venous No Growth in 48 hours- Final report to follow
09/20/23 10:11 Blood Culture - Preliminary
Blood/Venous No Growth in 48 hours- Final report to follow
Therapeutic Drug Monitoring
Vancomycin Peak 25.9 ug/ml (18-26) 09/21/23 20:48
Vancomycin Trough 14.7 ug/ml (5-20) 09/22/23 03:38
--- NOTE | 2023-09-23 09:59 | W.PN.ID1 ---
Date of Service
Date of Service: September 23, 2023
Today's Communication
continue current antibiotic for present - deescalation pending course
Assessment / Plan
Suspected developing secondary peritonitis
Leukocytosis
Total SMA graft occlusion s/p thrombectomy/patch
Acute mesenteric ischemia - ongoing
Resolving Shock Liver
Noncompliance
- blood cultures x2 NGTD
- wound cx: c albicans thus far -will follow another day
- echo normal EF
- note plans to return to the OR this afternoon
- continue meropenem, micafungin, vancomycin for now - deescalation pending course
- follow clinically
remains critically ill
Chief Complaint
-: Leukocytosis and Other (secondary peritonitis)
Subjective / Review of Systems
now afebrile just over 24 hours
norepi down to 6 mcg/min
declining leukocytosis
cr stable
cxr: bibasilar opacification; my read - no convincing infiltrates
abdomen cx c albicans, anaerobic in progress
discussed with ex- and daughter at the bedside
Vital Signs / Physical Exam
Vital Signs
Vital Signs
Temp Pulse Resp BP Pulse Ox
100.1 F 96 15 129/58 99
09/23/23 07:53 09/23/23 09:30 09/23/23 09:30 09/23/23 08:00 09/23/23 09:30
Physical Exam
Constitutional: No Acute Distress and Chronically Ill
Cardiovascular: Regular Rate and S1/S2; Negative Murmur or Rub
Pulmonary: Clear and Symmetric; Negative Wheezes or Rales
Gastrointestinal: Soft, Non Tender, Distended and Normal Bowel Sounds
Skin: Warm and Dry; Negative Rash or Jaundice
Wound: Other (surgical dressing with moderate serous drainage on the dressing)
Neurological: Negative Awake
Objective Data
Lab Data
Lab Results
09/23/23 04:46
PT 17.8 Sec (11.4-14.6) H 09/13/23 03:17
INR 1.49 09/13/23 03:17
APTT 29.4 Sec (23.4-35.0) 09/22/23 03:38
Estimated Creat Clear 120 ml/min 09/23/23 04:46
Lactic Acid 1.5 mmol/L (0.7-2.0) 09/21/23 17:38
Total Bilirubin 1.8 mg/dl (0.2-1.3) H D 09/23/23 04:46
AST 31 U/L (17-59) 09/23/23 04:46
ALT 18 U/L (0-50) 09/23/23 04:46
Alkaline Phosphatase 44 U/L (38-126) 09/23/23 04:46
Most recent labs reviewed.
Micro Results:
09/21/23 15:00 Anaerobic Culture - Preliminary
Peritoneal Fluid Culture pending. Anaerobic cultures are examined after 3
days incubation. Additional information to follow.
09/21/23 15:00 Wound Culture - Preliminary
Abdomen Sujatha albicans
Gram Stain - Preliminary
09/20/23 10:03 Blood Culture - Preliminary
Blood/Venous No Growth in 48 hours- Final report to follow
09/20/23 10:11 Blood Culture - Preliminary
Blood/Venous No Growth in 48 hours- Final report to follow
09/12/23 18:05 Blood Culture - Final
Blood/Venous No Growth - Final Report
09/12/23 18:05 Influenza Types A & B (ALAN) - Final
Nasal Swab Negative for Influenza A & B, NAAT
Negative results must be combined with clinical observations
and patient history.
Nucleic Acid Amplification test (NAAT)performed on the
gate5 platform.
[2023-09-23] MEDS: MYCAMINE 105 MG IV (10:07)
[2023-09-23 10:34] LABS: Urine Sodium 103 mmol/L (30-90)
[2023-09-23 10:39] LABS: Osmolality Urine 301 mOsm/kg (300-900)
[2023-09-23 10:53] LABS: Procalcitonin 3.64 ng/ml (0.0-0.25)
[2023-09-23] MEDS: FLEXBUMIN 100 IV ×2 (11:11→18:21)
[2023-09-23] MEDS: NSS 500 IV (11:35)
[2023-09-23] MEDS: NOVOLOG FLEXPEN-LOW RESISTANCE 2 UNITS SC ×2 (11:41→23:05)
[2023-09-23 11:48] LABS: Glucose - Point of Care 244 mg/dl (70-99)
--- NOTE | 2023-09-23 11:58 | W.PN.CRS1 ---
Addendum entered and electronically signed by Francisco Ballard MD 09/23/23 12:38:
I saw and examined the patient.
The PA's note was reviewed and I agree with the note.
Comment:
Seen in am with PA.
Awake on ventilator. Pain control ok.
Tm 100.5. WBC 21.6. On Levophed gtts.
Abdomen mildly distended.
OR today for second look by Dr. Andrews.
Original Note:
Today's Communication / Plan
-
OR today
2 units PRBCs
wound RN marking
Assessment/Plan
-
POD#2 Exploratory laparotomy, subtotal colectomy (takedown of splenic flexure)
1. Low grade temps overnight, 100.5 tmax. Hypotensive - on levophed gtt.
2. Sedated with fentanyl gtt.
3. Taking back to the OR today in the afternoon. Wound RN consulted to neri for an ileostomy.
4. Activity - bedrest.
5. Continue garcía due to critical care I/O's.
6. OR pathology pending.
7. Continue TPN.
8. Heparin gtt: holding today.
9. Medical management/vent care per primary.
10. Transfuse with 2 units PRBCs now.
11. Dr. Andrews has discussed plan with exwife and daughter.
Subjective Data
Procedure
09/21/2023- Exploratory laparotomy, subtotal colectomy (takedown of splenic flexure)
Subjective Data
Date of Service: September 23, 2023
Patient is intubated and sedated.
Objective Data
-
Vital Signs
Temp Pulse Resp BP Pulse Ox
100.5 F H 96 15 129/58 98
09/23/23 11:24 09/23/23 09:30 09/23/23 09:30 09/23/23 08:00 09/23/23 11:43
Intake & Output
09/22/23 09/23/23 09/24/23
06:59 06:59 06:59
Intake Total 6034.2 / 6250.7 4818.4 / 4909.2 573.6 / 573.6
Output Total 3195 / 3195 1950 / 1950 1450 / 1450
Balance 2839.2 / 3055.7 2868.4 / 2959.2 -876.4 / -876.4
Intake:
IV fluids (Total) 4524.2 / 4740.7 3003.4 / 3034.2 148.6 / 148.6
Ca 130 / 130
Heparin 18 / 18
Normosol 1680 / 1800 1200 / 1200
Protonix 210 / 220 60 / 60
calcium 420 / 420
double conc levophed 328.3 / 341.4 60.1 / 60.1
fentanyl 105.0 / 112.5 200.0 / 210.0 50 / 50
levophed 952.5 / 1023.8 892.6 / 892.6
nss 1000 / 1000
propofol 138.7 / 146.4 192.5 / 200.2 38.5 / 38.5
IV piggybacks 800 / 800 955 / 955 105 / 105
TPN/PPN 560 / 560 600 / 660 300 / 300
Amount instilled into GI Tube ( 150 / 150 160 / 160 20 / 20
Total)
[place] Sump 150 / 150 160 / 160 20 / 20
Blood Products 100 / 100
Albumin 25% 100 / 100
Output:
Gastrointestinal tube output ( 100 / 100 200 / 200
Total)
[place] Sump 100 / 100 200 / 200
Urine, García 845 / 845 1750 / 1750 1450 / 1450
Urine, Voided 2250 / 2250
Lab Results
03/26/24 04:46
Physical Exam
-
General: No Acute Distress and AOx3
Abdomen: Soft and Non Distended
Incision: Clear, Dry, Intact
--- NOTE | 2023-09-23 13:32 | WOUNDNOTE ---
DAVIDA RN NOTE: Stoma sited patient as requested, patient currently intubated. Avoided midline incision, scars and rib cage. Abdomen is distended, difficult to assess for any creases and umbilicus not visible. RUQ marked 8cm from midline and 4cm
proximal from umbilical line. RLQ marked 8cm from midline and 4cm distal from umbilical line. Will follow post op for ostomy needs.
--- NOTE | 2023-09-23 14:55 | W.PN.ONC ---
Today's Communication / Plan
-
09/22 Hgb 7, Hct 21, PLT 251
H/H pending for 16:00 today
s/p 5 units PRBCs with 1 infusing currently
Continue to monitor serial H/H, CBC with diff daily
Transfuse as needed to maintain Hgb >7, PLT>20
Heparin gtt upon return from the OR
APLA panel is negative
We will follow.
Impression
Impression
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
s/p ex lap, OSKAR, aorto-mesenteric bypass thrombectomy, mesenteric arteriogram, patch angioplasty of aorto-mesenteric bypass 09/13/23
Current smoker
Acute anemia
Leukocytosis
Hx DVT s/p orthopedic surgery after anticoagulation discontinued (2020)
Family hx of VTE
Subjective/Objective
Subjective/Objective
Vital Signs:
Vital Signs
Temp Pulse Resp BP Pulse Ox
100.2 F 89 14 100/49 98
09/23/23 14:20 09/23/23 14:20 09/23/23 14:20 09/23/23 14:20 09/23/23 13:00
Lab Results:
Laboratory Data
WBC 21.6 10^3/uL (4.8-10.8) H 09/23/23 03:37
Hgb 7.0 g/dL (13.0-18.0) L 09/23/23 03:37
Plt Count 251 10^3/uL (130-400) 09/23/23 03:37
PT 17.8 Sec (11.4-14.6) H 09/13/23 03:17
INR 1.49 09/13/23 03:17
APTT 29.4 Sec (23.4-35.0) 09/22/23 03:38
eGFR > 60.00 09/23/23 04:46
--- NOTE | 2023-09-23 15:50 | PTCARENOTE ---
Patient received in AM with assessment as noted. Continues intubated and sedated with Propofol and Fentanyl. RASS score -2 and patient wakes up to name and nods appropriately to simple questions. NSR on monitor. T-max 100.5 core. Received with
double concentrated Levo infusing at 7 mcg/min. Levo weaned to 6 mcg at 0800 with B/P's stable until approx 1040 when his B/P's dropped to 75-80's/40's. Levophed increased to 8 then 10 then 12 mcg/min by 1120. aware at 1050. 100 ml 25%
Albumin and 500 ml NSS bolus given as per orders. Ping Zuniga ([place]-rectal PA) updated by text and 2 units PRBC's ordered. Both units completed transfusing by 1526, prior to the patient being transferred to the OR at 1535. VS stable through
transfusions. B/P's improved with aforementioned interventions and were at 97-110/50's prior to leaving for the OR. Lungs slightly decreased in the bases bilaterally, otherwise coarse through out. Occasional moist cough but only suctions for scant
choe/white secretions. Sao2 95-99% on vent setting A/C 14-450-40% peep 5. Bowel sounds absent. Right nares Martin-Sump with a small amount of bile green/brown output. Chavez draining jovani urine. Family into visit and updated to patient condition.
Report given to OR staff by phone and at bedside prior to transfer.
--- NOTE | 2023-09-23 17:22 | W.IMMPOSTOP ---
Surgical Immed Post Op Note
-
Primary Surgeon: Jt Andrews MD
Assistants: CASSIDY Carpenter & CARMEN Bui
Pre-op Diagnosis: Ischemic bowel
Post-op Diagnosis: Same
Procedure Performed: 2nd look laparotomy and ileostomy (reopening of recent laparotomy)
Anesthesia Type: GET
Specimen / Cultures: Aerobic and anaerobic cultures
Estimated Blood Loss: 10cc
Complications: None
Operative Findings: Murky fluid throughout the abdomen
Viable remaining small intestine with excellent Doppler signals
Haily ileostomy
Patient's ex- notified.
[2023-09-23 18:00] LABS: Glucose - Point of Care 146 mg/dl (70-99)
[2023-09-23] MEDS: NOVOLOG FLEXPEN-LOW RESISTANCE SC (18:24)
[2023-09-23 18:28] LABS: Hematocrit 26.8 % (39.0-52.0); Hemoglobin 9.4 g/dL (13.0-18.0)
--- NOTE | 2023-09-23 19:01 | PTCARENOTE ---
Patient received s/p laparotomy and ileostomy with assessment unchanged except for the presence of the ileostomy and 2 J-P drains. Both J-P drains with sanguinous output. Ileostomy with no output. Mid-line ABD dressing dry and intact. Levophed
continues at 12 mcg/min with MAP's >65. Fentanyl and Propofol continue at 15 mcg/kg/min and 100 mcg/hr respectively. Patient awakens to voice and denies pain. Sao2 95% on vent setting A/C 14-450-40% peep 5. Chavez draining jovani urine. Family into
visit and updated to patient condition. Report given to overnight associate.
--- NOTE | 2023-09-23 19:52 | PTCARENOTE ---
Rec'd pt w/ wrists restrained for pt safety, opens eye to name called, ELO at 2mm, follows simple commands, diprivan gtt at 15mic, fent gtt at 100mic, SR, left rad colin w/ good wave form, flushes well, accurate to cuff- to keep MAP > 65 w/
levophed, presently at 12 keyanna- see flow sheet for titrations, distal pulses via doppler, + anasarca, scrotal edema & ecchymotic, skin warm/dry, #8 oral ett- 25 cm - moved to R lip, ac 14, tv 450, 5 peep, 40%, lungs coarse, decr in bases, sat 95,
scant clear secretions, absent bowel sounds, ileostomy stoma red, no drainage, R & L CHAY's draining sanguinous liquid, R nares [place] to low cont wall suction draining brown/green liquid, irrigated w/ 30 tap h20 qhr, abd incis w/ dsg- sm amt drainage
noted & circled, garcía draining jovani urine
[2023-09-23] MEDS: Parenteral Nutrition, Central 1440 IV (20:47)
[2023-09-23 23:12] LABS: Glucose - Point of Care 231 mg/dl (70-99)
[2023-09-24] VITALS (14 sets, daily range): BP systolic 78–130; BP diastolic 51–69; BMI 27.4
--- NOTE | 2023-09-24 00:03 | PTCARENOTE ---
sys reviewed, cjanges noted, scant amt ses drainage from ileostomy noted, CHG bath done, linens changed
[2023-09-24] MEDS: DIPRIVAN 100 IV ×3 (00:51→21:55)
[2023-09-24] MEDS: SUBLIMAZE 100 IV ×3 (02:00→21:52)
[2023-09-24] MEDS: LEVOPHED 258 MG IV ×2 (03:00→17:03)
--- NOTE | 2023-09-24 03:29 | DOWNTIME ---
There was a [employer] Downtime on 09/24/2023 from 0100 to 09/24/2023 at 0322. Downtime documentation of patient's care, including medication administrations, has been reconciled in the electronic record per guidelines. Refer to the
patient's paper chart under the miscellaneous tab to see printed paper medication records and downtime forms.
[2023-09-24 03:44] LABS: HCO3 29.2 mmol/L (21-28); Ionized Calcium 1.12 mMOL/L (1.15-1.33); PCO2 46 mmHg (35-48); PO2 95 mmHg (83-108); pH 7.41 (7.35-7.45)
[2023-09-24] MEDS: OFIRMEV 100 IV (03:50)
[2023-09-24] MEDS: MERREM 500 MG IV ×4 (03:50→21:35)
[2023-09-24] MEDS: STERILE WATER FOR INJECTION 10 ML IV ×4 (03:51→21:36)
--- NOTE | 2023-09-24 03:59 | PTCARENOTE ---
sys reviewed, ofirmev 1 gm iv given for temp 100.5, weaning levophed-m see flow sheet for titrations, ett repos on left side at 25cm
[2023-09-24 04:10] LABS: ALT (SGPT) 16 U/L (0-50); AST (SGOT) 35 U/L (17-59); Albumin 1.8 g/dl (3.5-5.0); Alkaline Phosphatase 55 U/L (38-126); Blood Urea Nitrogen 15 mg/dl (9-20); Calcium 7.4 mg/dl (8.4-10.2); Carbon Dioxide 26 mmol/L (22-30); Chloride 105 mmol/L (98-107); Estimated Creatinine Clearance > 125 ml/min; Glucose 193 mg/dl (70-99); LDH 340 U/L (120-246); Potassium 4.2 mmol/L (3.5-5.1); Sodium 131 mmol/L (135-145); Total Protein 3.7 g/dl (6.3-8.2); eGFR > 60.00
[2023-09-24 04:29] LABS: Hematocrit 26.2 % (39.0-52.0); Hemoglobin 9.2 g/dL (13.0-18.0); Mean Corp Hgb Conc. 35.1 g/dL (33.0-37.0); Mean Corpuscular Hgb 30.9 pg (27.0-31.0); Mean Corpuscular Volume 87.9 fL (80.0-94.0); Mean Platelet Volume 13.9 fL (7.4-10.4); Platelet Count 269 10^3/uL (130-400); Red Blood Cell Count 2.98 10^6/uL (4.70-6.10); Red Cell Dist. Width 16.1 % (11.5-14.5); White Blood Cell Count 17.5 10^3/uL (4.8-10.8)
[2023-09-24] MEDS: VANCOCIN 275 MG IV (05:04)
[2023-09-24] MEDS: NOVOLOG FLEXPEN-MODERATE RESISTANCE 3 UNITS SC ×3 (05:18→17:52)
[2023-09-24 05:19] LABS: Glucose - Point of Care 229 mg/dl (70-99)
[2023-09-24] MEDS: ASPIRIN 300 MG RECTAL (07:46)
--- NOTE | 2023-09-24 08:00 | PTCARENOTE ---
Assumed care of patient Pt rec'd sedated on ventilator. Pupils 2/sluggish. Easily arousable to voice. Nods head appropriately and follows simple commands. BOB's but weak. Bilateral wrist restraints on...see intervention. S1 S2 reg w/ NSR on
monitor. Pulses confirmed w/ doppler. +3 generalized edema w/ +4 scrotal edema. Heels elevated on pillows. #8ETT 25cm left lip. Current vent settings: 14/450/+5/40%. Fio2 increased to 60% w/ left side down....pt's sats decreased to 82-86% with
left side down. Suctioned via ETT for thick choe secretions. Lungs clear but very diminished in bases. Sats 95-98%. Right nare [place] -> LIWS...flushed w/ 30mls of tap water...q4H flushes per order. Draining liquid brown. (R) LQ ileostomy...red
budded stoma draining scant liquid green. Wound care aware of pt's stoma and beside supplies ordered. No bowel sounds noted. Temp sensing garcía draining jovani urine...garcía care done. Skin pale in color...sacrum intact...repositioned q2h. Mid
line abdominal aquacell...some shadowing noted. Bilateral CHAY's noted...(R) draining serosanguinous...(L) draining dark serosanguinous. Multiple INT's and right DL PICC noted. Left radial colin flushed and zeroed. TPN, double concentrated
levophed, fentanyl and diprivan gtts infusing...see interventions. VS documented. Will continue to monitor closely.
[2023-09-24] MEDS: PROTONIX IV 40 MG IV ×2 (08:09→19:44)
[2023-09-24] MEDS: NSS (PRESERVATIVE FREE) 10 ML IV ×2 (08:09→19:44)
[2023-09-24] MEDS: LASIX 40 MG IV ×2 (08:11→15:16)
[2023-09-24] MEDS: HEPARIN 5000 UNITS SC (08:11)
--- NOTE | 2023-09-24 08:14 | W.PN.UPDATE ---
Update Note
Progress Note Update
Patient seen at bedside this a.m. with Dr. Chavez. Sedated and ventilated.
Restart heparin drip when okay with colorectal
--- NOTE | 2023-09-24 08:50 | W.PN.INTV ---
Today's Communication / Plan
Recommendations
Continue mechanical ventilation with daily SAT/SBT --> diurese and will try PST tomorrow on 11/01
Start heparin gtt and trend CBC
Transfuse as needed to keep Hb >7, plt>50 K
Abx as per ID
Follow up peritoneal cultures collected from OR yesterday
Pain control
TPN as per surgery
Prognosis guarded
Assessment
-
58-year-old man with past medical history noted, admitted to the emergency room with abdominal pain. Found to have bowel ischemia due to occlusion of prior aortic mesenteric bypass. Apparently patient stopped taking Plavix and statin since January
2022. Only on aspirin, emergently taken to the operating room. Transferred to the critical care unit, we were consulted for critical care management.
Impression:
- Ventilator dependent respiratory failure
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
- Status post exploratory laparotomy, lysis of adhesions, aortomesenteric bypass nick thrombectomy, mesenteric arteriogram, patch angioplasty of aortomesenteric bypass graft (OR date: 09-13-2023)
- Ischemic bowel c/b necrosis s/p ex-lap with subtotal colectomy with splenic flexure takedown and distal 70cm of TI also removed (OR date: 09/21/2023)
- Second look laparotomy with end-ileostomy creation on 09/23/2023
- GI bleed - Hb stable for >24 hrs and no current signs of active bleed - GI bleed was likely due to ischemic colitis
- Anemia due to acute blood loss
- Leukocytosis due to mesenteric ischemia
- Hyponatremia due to SIADH (acute on chronic - baseline Na approx 131-134) - SIADH is likely due to recent surgery
- Hyperglycemia
- Lactic acidosis - resolved
- Left flank ecchymosis
- Wheezing - resolved
- Bilateral pleural effusions left greater than right
Conditions present prior admission:
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
graft bypass into the celiac and SMA vessels.
Tobacco abuse
PFT's 06-19- with moderate airflow obstruction with some reversibility postbronchodilator on spirometry.-Not on bronchodilators
Moderate COPD/emphysema-not seen by pulmonary in the outpatient office for
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
History of left gastric anemic DVT status post apixaban 03/2021 post left knee surgery
History lumbar vasectomy
Chronic back pain-recent steroid taper
Plan
Patient continues to be critically ill on mechanical ventilation and in shock on vasopressors
Patient went back to the OR for laparotomy yesterday showing viable remaining small bowel with excellent Doppler signals, and an end-ileostomy was inserted.
Underwent colorectal surgery on 09/20 with necrotic/perforated transverse colon seen and ischemic bowel including the right colon, 70 cm of the terminal ileum and the left colon and the proximal jejunum was also becoming possibly ischemic towards the
end of the procedure. The bowel was left in discontinuity and was divided with 1 firing of the contour stapler. The left colon was resected with the proximal end left open.
Continue TPN in meantime and I discussed starting AC with vascular surgery and colorectal, and considering his recent GI bleed, we started chemical DVT ppx on 09/21; heparin gtt being started today
Continue mechanical ventilation with daily SAT/SBT, titrating FiO2 and PEEP to keep SpO2 >90-94% and keep PIP<30, plataeu pressure <30
VAP precautions
Nebulizers as needed-intermittently with wheezing-currently resolved
Postoperative management as per colorectal/general surgery and vascular surgery -correspondence reviewed and recommendations are appreciated
POD#11 exploratory laparotomy, lysis of adhesions, aortomesenteric bypass nick thrombectomy, mesenteric arteriogram, patch angioplasty of aortomesenteric bypass
POD#3 subtotal colectomy
Antibiotics per surgery-was on Zosyn-changed to meropenem (started on 09-19 in addition to micafungin and IV vancomycin)
Follow cultures - sujatha seen on peritoneal culture from OR on 09-21-2023
Follow-up peritoneal cultures taken from the OR on 09/23/2023
Infectious disease consultation noted-correspondence reviewed
NGT to suction
Pain management
Maintain MAP>65
Monitor hemoglobin
Transfuse as needed to keep Hb>7, plt>50k
GI evaluation-correspondence reviewed-no acute GI intervention recommended at this point
Continue PPI 40mg IV BID
Monitor renal function
Replace electrolytes as needed
Previously noted to have some hypoglycemia
Dextrose if needed
Continue TPN per surgery
Trend serum Na
Monitor liver functions
Smoking cessation counseling ongoing - not currently relevant; we can address this if pt is extubated
DVT prophylaxis- now on heparin gtt
Nutrition per surgery and vascular surgery
Note: Dr. Raman reviewed with ex- at the bedside with patient's permission-reviewed case 09/20/2023
Critical care statement: A total of 38 minutes of critical care time was provided for this patient today. This includes management of unstable vital signs, evaluation of the patient at bedside, reviewing the patient's pertinent medical records
including radiographs, transfusion management, pressor management, microbiology, laboratory evaluations, and discussion with primary team, consultants, pharmacy, nutrition, physical therapy, case management, charge nurse, critical care nursing, and
respiratory therapy.
Data:
CXR 09-21-2023: Endotracheal tube has been inserted with tip 2.3 cm above the yue.
CXR 09-23-2023: Bibasilar opacification most likely representing subsegmental atelectasis, left greater than right.
CXR 09-24-2023: Endotracheal tube is present with its tip 5.3 cm above the yue; Evidence for bilateral pleural effusions, probably small to moderate. Adjacent parenchymal opacity within the lower lungs, most likely representing atelectasis. Small
subtle opacity in the lateral aspect of the right upper lung stable dating back to June 25, 2021, likely a small focus of scarring. Stability is reassuring that this is benign.
CTA Abd/Pelvis with/without IV contrast 09-19-2023:
Markedly abnormal examination. No definite findings to suggest an acute retroperitoneal hemorrhage, however there is an increase in free fluid throughout the abdomen and pelvis.
There are small collections of intermediate density throughout the mesentery, concerning for small mesenteric hematomas.
Increased bilateral pleural effusions left greater than right and increased bibasilar consolidation.
As previously noted there is small bowel and large bowel wall thickening. Concerning for ischemia particularly in the transverse colon with increased stranding and inflammatory appearance.
Persistent free air and free fluid, concerning for an occult perforation, no definite site identified.
Celiac axis/SMA bypass graft similar to previous exam.
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 Chavez at 4:00 PM.
Left transversus abdominis intramuscular hematoma. Slightly increased compared to previous exam. Increased bilateral flank edema. Left greater than right. Consistent with the clinical concern for increased bruising.
CTA Abd/Pelvis with/without contrast 09-14-2023:�
Moderate small bowel wall and large bowel wall thickening as described above. Ischemia cannot be excluded.
Free air and free fluid in the abdomen and pelvis likely postsurgical change - new
Celiac axis/SMA bypass graft.
Moderate bibasilar consolidation - new
Chavez catheter present - new
Mild prostate hypertrophy - stable
CTA Abd/Pelvis with/without contrast 09-12-2023:
1. Complete occlusion of the celiac/SMA bypass graft as described.
2. Mild bilateral lower lobe infectious/inflammatory bronchiolitis change.
3. Mild T12 and L4 superior endplate compression deformities, new from 01/20/2023 and age indeterminate. Recommend correlation for any point tenderness in these regions.
Subjective Dataa
Subjective Data
Date of Service:
Date of Service: September 24, 2023
Chief Complaint: Biomedical Service Engineer Follow Up (Status post aortomesenteric bypass occlusion.) and Pulmonary Follow Up
Subjective:
Pt seen this AM. Awakens to voice but is certainly less responsive today compared to yesterday pre-operatively. Currently on levophed at 12mcg/min, sedated on prop at 15 and fent at 100mcg/hr. Making urine (about 2.8L last 24 hrs). ETT
secretions are scant, thick and choe. He is net (-) 17.5mL. On AC/VC 14/450/60%/5. Heparin gtt started this AM as per vascular surgery.
Review of Systems
General: Other (Unable to obtain due to patient's clinical status (intubated))
Objective Data
Data Reviewed
Vital Signs / I&O / Oxygen:
Vital Signs
Temp Pulse Resp BP Pulse Ox
98.2 F 80 15 111/58 91
09/24/23 07:26 09/24/23 08:30 09/24/23 08:30 09/24/23 08:11 09/24/23 08:30
Intake and Output
09/23/23 09/24/23 09/25/23
06:59 06:59 06:59
Intake Total 4818.4 / 4909.2 3992.5 / 4096.5 334.4 / 334.4
Output Total 1950 / 1949 4010 / 4310 1090 / 1090
Balance 2868.4 / 2959.2 -17.5 / -213.5 -755.6 / -755.6
SaO2 [A/C] 91
SaO2 96
Nasal Cannula flow liters per 2
minute
Physical Exam
General: Respiratory Distress (n), Comfortable and Other (intubated and in NAD)
HEENT: Normocephalic and Anicteric
Cardiovascular: S1-S2, Peripheral Edema (Negative) and Other (Left radial arterial catheter in place)
Respiratory: Wheeze (negative), Crackles (negative), Rhonchi (n), Non-Labored Respirations, Accessory Resp Muscle Use (n), Stridor (n), ET Tube and Other (Mechanical breath sounds heard bilaterally; coarse BS b/l)
GI: Distended, Non Tender, Other (Midline bandages without active bleeding) and Other (Firm abdomen, no peritoneal signs, hypoactive BS)
Neurology: Tremors (negative) and Lethargic (Arousable to voice)
Skin: Warm, Dry, Cyanosis (n) and Jaundice (n)
Labs/Micro/Reports
Lab Data
09/24/23 03:09
09/24/23 03:09
Laboratory Results
09/24/23 09/24/23
03:09 06:00
pH 7.41 Cancelled
pCO2 46 Cancelled
pO2 95 Cancelled
HCO3 29.2 H Cancelled
O2 Delivery Level Cancelled
Microbiology
09/23/23 16:45 Fluid Gram Stain - Preliminary
09/20/23 10:11 Blood/Venous Blood Culture - Preliminary
No Growth in 72 hours- Final report to follow
09/20/23 10:03 Blood/Venous Blood Culture - Preliminary
No Growth in 72 hours- Final report to follow
09/21/23 15:00 Peritoneal Fluid Anaerobic Culture - Preliminary
Culture pending. Anaerobic cultures are examined after 3
days incubation. Additional information to follow.
09/21/23 15:00 Abdomen Wound Culture - Preliminary
Sujatha albicans
09/21/23 15:00 Abdomen Gram Stain - Preliminary
--- NOTE | 2023-09-24 08:54 | W.PN.HOSP.TC ---
Today's Communication/Plan
-
resuming IV heparin
wean Vent/pressors as able
continue IV Abx
continue diuresis
Assessment / Plan
Assessment / Plan
Assessment:
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
- s/p Exploratory laparotomy, lysis of adhesions, aorto-mesenteric bypass [place] thrombectomy, mesenteric arteriogram, patch angioplasty of aorto-mesenteric bypass 09/12
- Vascular following
- CT-A 09/13 showing patient bypass, concern for bowel ischemia (see below)
Ischemic bowel c/b necrotic bowel
- CRS managing
- s/p ex-lap 09/20: Necrotic and perforated entire transverse colon, ischemic right colon and terminal ileum, ischemic left colon, ? ischemia of the proximal jejunum. 70 cm terminal colon with entire right colon, transverse colon and descending colon
removed.
- s/p 2nd look ex-lap 09/22 with Murky fluid throughout the abdomen, viable remaining small intestine with excellent Doppler signals, Haily ileostomy
- resume IV Heparin when cleared by surgical team
- ID following for suspected secondary peritonitis. Continue Meropenem, Micafungin, Vancomycin
- Hematology input about thrombophilia assessments noted - transition into DOAC once off of IV heparin and follow with office for work up.
Ventilator dependent respiratory failure
- wean per pulmonary; management per ICU
Post-op shock - multifactorial from sepsis/blood loss
- continue pressors; wean as able
- Echo normal EF
GI bleed related to ischemic colitis
Acute blood loss anemia
- monitor Hb
- continue PPI
Hyponatremia due to SIADH (acute on chronic - baseline Na approx 131-134) - SIADH is likely due to recent surgery, also component of volume overload
- BNP only mildly elevated
- Echo normal
- IV Lasix prn
Left flank ecchymosis
Bilateral pleural effusions left greater than right
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
CAD s/p prior hx of NSTEMI - asymptomatic without chest pain. On aspirin at home.
Hyperbilirubinemia- mostly indirect elevation, possible Gilbert's + hematomas related. Continue to follow.
Hypocalcemia - replete
Hx of DVT status post apixaban 03/2021 post left knee surgery
Chronic back pain - recent steroid taper. Continued mid back pain which is a equally troubling. No sciatica . plain xrays show loss of height of superior endplate t12,l4 . Pt had pull while lifting something at home but no fall or trauma. continue
symptomatic tx
Hyperglycemia
No hx of DM
- HbA1C 5.8
Tobacco abuse - remains actively smoking. Cessation recommended.
Nutrition - resumed TPN. Hypoalbuminemia severe noted.
DVT ppx: IV Heparin
Code: Full
Total Critical Care Time 42 minutes. I was immediately available to the patient and staff. I personally examined, reviewed labs, diagnostic images/reports, interpretations, treatment plans, discussed patient care with other providers and family
or caregivers (if patient is unable to make decisions), entered orders as appropriate and documented the medical record.
Anticipated Discharge: > 48 hours
Subjective/Interval History
-
Date of Service: September 24, 2023
s/p 2nd OR trip with ostomy placement
remains sedated, intubated on pressors
Objective Data
-
Labs:
Laboratory Results
09/24/23 09/24/23
03:09 06:00
WBC 17.5 H
Hgb 9.2 L
Hct 26.2 L
Plt Count 269
HCO3 29.2 H Cancelled
Sodium 131 L
Potassium 4.2
Chloride 105
Carbon Dioxide 26
BUN 15
Creatinine 0.6 L
Glucose 193 H
Calcium 7.4 L
Total Bilirubin 2.0 H
AST 35
ALT 16
Alkaline Phosphatase 55
Vital Signs:
Vital Signs
Temp Pulse Resp BP Pulse Ox
98.2 F 80 15 111/58 91
09/24/23 07:26 09/24/23 08:30 09/24/23 08:30 09/24/23 08:11 09/24/23 08:30
I&O
09/23/23 09/24/23 09/25/23
06:59 06:59 06:59
Intake Total 4818.4 / 4909.2 3992.5 / 4096.5 234.2 / 234.2
Output Total 1950 / 1950 4010 / 4010 190 / 190
Balance 2868.4 / 2959.2 -17.5 / 86.5 44.2 / 44.2
Physical Exam
-
General: No Apparent Distress and Intubated
HEENT: Normocephalic and Atraumatic
Respiratory: Clear to Auscultation; Negative Wheezes
Cardiac: Regular Rhythm and S1/S2
GI: Soft
Genito-urinary: No Costovertebral Tender
Neuro: AO x 3
Psych: Calm
Data Reviewed
-
Critical Care Time (in minutes): 42
Labs: Labs Reviewed by me
--- NOTE | 2023-09-24 09:07 | WOUNDNOTE ---
WOC RN NOTE: Patient with new ileostomy. Stoma pink, budded. SPD called for stoma kit and spoke to RNChely. Patient currently sedated and ventilated. Will follow-up with patient for ostomy teaching.
[2023-09-24] MEDS: MYCAMINE 105 MG IV (09:35)
--- NOTE | 2023-09-24 10:00 | PTCARENOTE ---
Heparin gtt initiated @ 1000 units/hr per MD order...will follow protocol.
[2023-09-24] MEDS: HEPARIN 25000 UNITS/250 ML IV (10:01)
--- NOTE | 2023-09-24 10:08 | W.PN.CRS1 ---
Today's Communication / Plan
-
ileostomy/wound care
continue ngt
continue tpn
okay to restart heparin gtt - no bolus
Assessment/Plan
-
POD#1, 2nd look laparotomy and ileostomy (reopening of recent laparotomy), POD#3 Exploratory laparotomy, subtotal colectomy (takedown of splenic flexure)
1. Low grade temps overnight, 100.5 tmax. Hypotensive - on levophed gtt.
2. Sedated with fentanyl gtt.
3. Wound RN for ileostomy care/teaching.
4. Activity - bedrest.
5. Continue garcía due to critical care I/O's.
6. OR pathology pending.
7. Continue TPN.
8. Heparin gtt: Okay to restart heparin gtt from our perspective. No bolus.
9. Medical management/vent care per primary.
10. Continue NGT until restart of bowel function.
Subjective Data
Procedure
09/21/2023- Exploratory laparotomy, subtotal colectomy (takedown of splenic flexure)
09/23/2023- 2nd look laparotomy and ileostomy (reopening of recent laparotomy)
Subjective Data
Date of Service: September 24, 2023
Patient is intubated and sedated.
Objective Data
-
Vital Signs
Temp Pulse Resp BP Pulse Ox
98.2 F 80 15 111/58 91
09/24/23 07:26 09/24/23 08:30 09/24/23 08:30 09/24/23 08:11 09/24/23 08:30
Intake & Output
09/23/23 09/24/23 09/25/23
06:59 06:59 06:59
Intake Total 4818.4 / 4909.2 3992.5 / 4096.5 334.4 / 334.4
Output Total 1950 / 1950 4010 / 4310 1090 / 1090
Balance 2868.4 / 2959.2 -17.5 / -213.5 -755.6 / -755.6
Intake:
IV fluids (Total) 3003.4 / 3034.2 1337.5 / 1381.5 124.4 / 124.4
Ca 130 / 130
Normosol 1200 / 1200
Protonix 60 / 60
double conc levophed 328.3 / 341.4 442.7 / 469.0 71.3 / 71.3
fentanyl 200.0 / 210.0 210 / 220 30 / 30
levophed 892.6 / 892.6
nss 500 / 500
propofol 192.5 / 200.2 184.8 / 192.5 23.1 / 23.1
IV piggybacks 955 / 955 755 / 755
TPN/PPN 600 / 660 1200 / 1260 180 / 180
Amount instilled into GI Tube ( 160 / 160 100 / 100 30 / 30
Total)
[place] Sump 160 / 160 100 / 100 30 / 30
Blood Products 100 / 100 100 / 100
Albumin 25% 100 / 100 100 / 100
Blood Product Amount Infused ( 500 / 500
mL)
Packed Rbc Leukoreduced Unit 250 / 250
[id number]
Packed Rbc Leukoreduced Unit 250 / 250
[id number]
Output:
Drain Output (Total) 855 / 855 190 / 190
Left Filiberto-Roche A 0 / 0
Left Filiberto-Roche B 375 / 375 90 / 90
Right Filiberto-Roche A 480 / 480 100 / 100
Gastrointestinal tube output ( 200 / 200 300 / 300
Total)
[place] Sump 200 / 200 300 / 300
Urine, García 1750 / 1750 2855 / 3155 900 / 900
Lab Results
09/24/23 03:09
09/24/23 03:09
Physical Exam
-
General: No Acute Distress and Other (intubated, sedated)
Abdomen: Soft, Non Distended and Other (ileostomy warm and pink)
Skin: Warm and Dry
Wound: Dressing in Place
[2023-09-24 11:53] LABS: Glucose - Point of Care 236 mg/dl (70-99)
--- NOTE | 2023-09-24 12:15 | PTCARENOTE ---
No major changes in physical assessment since am. Remains intubated and sedated. Bedside rounds completed w/ finance business partner. Multiple orders rec'd. Will continue to monitor closely.
--- NOTE | 2023-09-24 12:36 | W.PN.ID1 ---
Date of Service
Date of Service: September 24, 2023
Today's Communication
stopped vancomycin
continue meropenem and micafungin
note elevated procalcitonin as expected; no benefit to trending in my opinion at this time
Assessment / Plan
Suspected developing secondary peritonitis
Leukocytosis
Total SMA graft occlusion s/p thrombectomy/patch
Acute mesenteric ischemia - ongoing
Resolving Shock Liver
Noncompliance
- murky fluid was noted in the abdomen in the OR, no perforations
- on core T a fever is defined as over 101.0
- blood cultures x2 NGTD
- wound cx: c albicans
- continue meropenem, micafungin, for now
- stopped vancomycin
- follow clinically
remains critically ill
Chief Complaint
-: Leukocytosis and Other (secondary peritonitis)
Subjective / Review of Systems
central Ts running 100.5
increased norepi dose today
improved leukocytosis
cr stable
ldh 340
murkey fluid noted in the abdomen
Vital Signs / Physical Exam
Vital Signs
Vital Signs
Temp Pulse Resp BP Pulse Ox
99.2 F 84 16 97/52 99
09/24/23 11:03 09/24/23 10:00 09/24/23 10:00 09/24/23 10:00 09/24/23 11:17
Physical Exam
Constitutional: No Acute Distress and Chronically Ill
Cardiovascular: Regular Rate and S1/S2; Negative Murmur or Rub
Pulmonary: Clear and Symmetric; Negative Wheezes or Rales
Gastrointestinal: Soft, Non Tender, Distended and Normal Bowel Sounds
Skin: Warm and Dry; Negative Rash or Jaundice
Lines: Other (surgical drains with serosanguinous fluid, dressing clean/dry/intact)
Objective Data
Lab Data
Lab Results
09/24/23 03:09
PT 17.8 Sec (11.4-14.6) H 09/13/23 03:17
INR 1.49 09/13/23 03:17
APTT 29.4 Sec (23.4-35.0) 09/22/23 03:38
Estimated Creat Clear > 125 ml/min 09/24/23 03:09
Lactic Acid 1.5 mmol/L (0.7-2.0) 09/21/23 17:38
Total Bilirubin 2.0 mg/dl (0.2-1.3) H 09/24/23 03:09
AST 35 U/L (17-59) 09/24/23 03:09
ALT 16 U/L (0-50) 09/24/23 03:09
Alkaline Phosphatase 55 U/L (38-126) 09/24/23 03:09
Most recent labs reviewed.
Micro Results:
09/23/23 16:45 Anaerobic Culture - Preliminary
Abdomen Culture pending. Anaerobic cultures are examined after 3
days incubation. Additional information to follow.
09/23/23 16:45 Body Fluid Culture - Preliminary
Fluid No Growth After 18-24 Hours
Gram Stain - Preliminary
09/20/23 10:03 Blood Culture - Preliminary
Blood/Venous No Growth in 4 days- Final report to follow
09/20/23 10:11 Blood Culture - Preliminary
Blood/Venous No Growth in 4 days- Final report to follow
09/21/23 15:00 Anaerobic Culture - Preliminary
Peritoneal Fluid Culture pending. Anaerobic cultures are examined after 3
days incubation. Additional information to follow.
09/21/23 15:00 Wound Culture - Preliminary
Abdomen Sujatha albicans
Gram Stain - Preliminary
09/12/23 18:05 Blood Culture - Final
Blood/Venous No Growth - Final Report
09/12/23 18:05 Influenza Types A & B (ALAN) - Final
Nasal Swab Negative for Influenza A & B, NAAT
Negative results must be combined with clinical observations
and patient history.
Nucleic Acid Amplification test (NAAT)performed on the
[email or web address] platform.
[2023-09-24] MEDS: LANTUS 0.119999999999999996 UNITS SC (12:59)
[2023-09-24] MEDS: PITRESSIN 100 IV ×2 (12:59→21:35)
[2023-09-24] MEDS: CALCIUM GLUCONATE 100 IV (13:09)
--- NOTE | 2023-09-24 13:16 | CM ---
CM following re: discharge planning.
Discussed in rounds, reviewed pt's chart, met with pt. Pt is POD#1, 2nd look laparotomy and ileostomy (reopening of recent laparotomy), POD#3 Exploratory laparotomy, subtotal colectomy (takedown of splenic flexure), remains intubated, continue
supportive care.
MD completed part III Physician's statement that requested by [employer] for pt's short term disability benefits and pt will sign when able.
PT and OT recommended SNF level of care. PT and OT will reevaluate when clinically appropriate to confirm a level of care at discharge.
D/C plan: SNF level of care when medically stable. Pt has a list of SNFs.
CM will follow with discharge plan updates as hospitalization progresses
[2023-09-24 15:17] LABS: APTT 44.4 Sec (23.4-35.0)
--- NOTE | 2023-09-24 16:00 | PTCARENOTE ---
Pt remains intubated and sedated on multiple gtts. No major changes in physical assessment. VS documented. Will continue to monitor closely.
[2023-09-24 16:11] LABS: Blood Urea Nitrogen 15 mg/dl (9-20); Calcium 7.3 mg/dl (8.4-10.2); Carbon Dioxide 30 mmol/L (22-30); Chloride 103 mmol/L (98-107); Estimated Creatinine Clearance 120 ml/min; Glucose 218 mg/dl (70-99); Potassium 3.9 mmol/L (3.5-5.1); Sodium 131 mmol/L (135-145); eGFR > 60.00
[2023-09-24 17:59] LABS: Glucose - Point of Care 234 mg/dl (70-99)
[2023-09-24 18:06] LABS: Hematocrit 25.2 % (39.0-52.0); Hemoglobin 8.7 g/dL (13.0-18.0); Mean Corp Hgb Conc. 34.5 g/dL (33.0-37.0); Mean Corpuscular Hgb 30.4 pg (27.0-31.0); Mean Corpuscular Volume 88.1 fL (80.0-94.0); Platelet Count 284 10^3/uL (130-400); Red Blood Cell Count 2.86 10^6/uL (4.70-6.10); Red Cell Dist. Width 16.2 % (11.5-14.5)
--- NOTE | 2023-09-24 20:00 | PTCARENOTE ---
Patient received in bed, intubated and sedated on Propofol and Fentanyl gtts. Bilateral wrist restraints maintained. Pupils 2 mm and sluggish, arouses to verbal stimuli, follows commands. NSR on monitor, temp and blood pressure as documented.
Currently on Levophed and Vasopressin gtts, will titrate as blood pressure tolerates. + anasarca, distal pulses present by doppler. #8 ETT at center, moved to right, tolerating vent settings of A/C 14 TV 450 FIO2 60% Peep 5, lungs coarse
bilaterally, diminished bibasilar, pulse ox 98%. Cross sump in right nare to LIS draining green/brown. Abdomen with hypoactive bowel sounds in RLQ. Illeostomy draining small amount of liquid stool. Temp sensing garcía draining jovani urine.
Midline aquacell dressing with old drainagge. Right CHAY draining serous, left CHAY draining serosanguineous. RDL PICC with TPN, propofol, fentanyl, heparin, vasopressors infusing as documented. Left radial [place] transduced and zeroed,correlating with
cuff pressure. Turned and repositioned
[2023-09-24] MEDS: Parenteral Nutrition, Central 1440 IV (20:55)
[2023-09-24 23:05] LABS: APTT 53.4 Sec (23.4-35.0)
[2023-09-24 23:33] LABS: Glucose - Point of Care 259 mg/dl (70-99)
[2023-09-24] MEDS: NOVOLOG FLEXPEN-MODERATE RESISTANCE 5 UNITS SC (23:35)
[2023-09-25] VITALS (9 sets, daily range): BP systolic 86–112; BP diastolic 44–58; BMI 26.7
--- NOTE | 2023-09-25 00:25 | PTCARENOTE ---
Patient reassessed, no changes in assessment
[2023-09-25] MEDS: SUBLIMAZE 50 MCG IV ×3 (02:45→22:13)
[2023-09-25] MEDS: HEPARIN 25000 UNITS/250 ML IV ×2 (04:22→18:01)
[2023-09-25] MEDS: MERREM 500 MG IV ×4 (04:22→22:14)
[2023-09-25] MEDS: STERILE WATER FOR INJECTION 10 ML IV ×4 (04:22→22:14)
--- NOTE | 2023-09-25 04:29 | PTCARENOTE ---
Patient reassessed, no changes, CHG bath given
[2023-09-25 05:14] LABS: HCO3 33.2 mmol/L (21-28); PCO2 50 mmHg (35-48); PO2 146 mmHg (83-108); pH 7.43 (7.35-7.45)
[2023-09-25 05:20] LABS: % Basophils 0.7 % (0-2); % Eosinophils 3.1 % (0-6); % Immature Granulocytes 2.4 % (0-0.5); % Lymphocytes 10.7 % (20.5-51.1); % Monocytes 8.2 % (1.7-9.3); % Neutrophils 74.9 % (42.2-75.2); Absolute Basophils 0.1 10^3/uL (0-0.2); Absolute Eosinophils 0.5 10^3/uL (0-0.7); Absolute Immature Granulocytes 0.4 10^3/uL (0-0.05); Absolute Lymphocytes 1.6 10^3/uL (1.2-3.4); Absolute Monocytes 1.2 10^3/uL (0.1-0.6); Absolute Neutrophils 10.9 10^3/uL (1.4-6.5); Hematocrit 23.5 % (39.0-52.0); Hemoglobin 7.9 g/dL (13.0-18.0); Mean Corp Hgb Conc. 33.6 g/dL (33.0-37.0); Mean Corpuscular Hgb 29.8 pg (27.0-31.0); Mean Corpuscular Volume 88.7 fL (80.0-94.0); Mean Platelet Volume 13.7 fL (7.4-10.4); Platelet Count 289 10^3/uL (130-400); Red Blood Cell Count 2.65 10^6/uL (4.70-6.10); Red Cell Dist. Width 16.4 % (11.5-14.5); White Blood Cell Count 14.5 10^3/uL (4.8-10.8)
[2023-09-25 05:40] LABS: APTT 61.1 Sec (23.4-35.0)
[2023-09-25 05:43] LABS: ALT (SGPT) 20 U/L (0-50); AST (SGOT) 39 U/L (17-59); Albumin 1.6 g/dl (3.5-5.0); Alkaline Phosphatase 61 U/L (38-126); Blood Urea Nitrogen 17 mg/dl (9-20); Calcium 7.2 mg/dl (8.4-10.2); Carbon Dioxide 30 mmol/L (22-30); Chloride 103 mmol/L (98-107); Estimated Creatinine Clearance > 125 ml/min; Glucose 200 mg/dl (70-99); Potassium 4.1 mmol/L (3.5-5.1); Procalcitonin 1.48 ng/ml (0.0-0.25); Sodium 133 mmol/L (135-145); Total Bilirubin 1.6 mg/dl (0.2-1.3); Total Protein 3.8 g/dl (6.3-8.2); eGFR > 60.00
[2023-09-25] MEDS: NOVOLOG FLEXPEN-MODERATE RESISTANCE 3 UNITS SC ×2 (05:53→13:02)
--- NOTE | 2023-09-25 07:45 | PTCARENOTE ---
09/24/23 08:00 (created 09/24/23 10:32) - Patient Care Note by Marcie Ny RN
Acct Num: [id number] : 1965 Patient Age: 58
Assumed care of patient Pt rec'd sedated on ventilator. Pupils 2/sluggish. Easily arousable to voice. Nods head appropriately and follows simple commands. BOB's but weak. Bilateral wrist restraints on...see intervention. S1 S2 reg w/ NSR on
monitor. Pulses confirmed w/ doppler. +2 generalized edema w/ +3 scrotal edema. Left flank and scrotal purplish ecchymosis noted. Heels elevated on pillows. #8ETT 25cm right lip. Current vent settings: 14/450/+5/40%. Sats 98%. Suctioned via
ETT for thick choe secretions. Lungs clear but very diminished in bases and coarse anteriorly. Right nare [place] -> LIWS...flushed w/ 30mls of tap water...q4H flushes per order. Draining liquid brown. (R) LQ ileostomy...red budded stoma draining
moderate brownish green/black liquid stool. No bowel sounds noted. Temp sensing garcía draining yellow urine...garcía care done. Lasix BID daily. Skin pale in color...sacrum intact...repositioned q2h. Mid line abdominal aquacell...shadowing noted.
Bilateral CHAY's noted...(R) draining serosanguinous...(L) draining dark serosanguinous. Multiple INT's and right DL PICC noted. Left radial [place] flushed and zeroed. TPN, double concentrated levophed, fentanyl, heparin, vasopressin and diprivan
gtts infusing...see interventions. VS documented. Will continue to monitor closely.
[2023-09-25] MEDS: LASIX 40 MG IV ×2 (07:54→15:40)
[2023-09-25] MEDS: ASPIRIN 300 MG RECTAL (07:54)
[2023-09-25] MEDS: LANTUS 0.119999999999999996 UNITS SC (07:54)
[2023-09-25] MEDS: NSS (PRESERVATIVE FREE) 10 ML IV ×2 (07:55→20:13)
[2023-09-25] MEDS: PROTONIX IV 40 MG IV ×2 (07:55→20:13)
[2023-09-25] MEDS: SUBLIMAZE 100 IV ×2 (08:06→18:38)
--- NOTE | 2023-09-25 08:20 | W.PN.CRS1 ---
Today's Communication / Plan
-
1. Pressors as per the ICU team.
2. Wound RN for ileostomy care/teaching.
3. Activity - bedrest.
4. Continue Chavez due to critical care I/O's and scrotal swelling.
5. OR pathology with transmural necrosis.
6. Continue TPN. Consider trickle feeds tomorrow.
7. Heparin gtt: PTT 61.1, no evidence of bleeding.
8. Medical management/vent care per primary.
9. Continue NGT.
Assessment/Plan
-
POD # 2 2nd look laparotomy and ileostomy, POD#3 Exploratory laparotomy, subtotal colectomy for ischemic bowel
He continues on levophed but much reduced.
Adequate urine output.
Hgb down a bit (7.9 g/dL) but no evidence of bleeding.
Still with fevere - recent cultures pending.
Ileostomy appears healthy and is starting to function.
Subjective Data
Procedure
09/21/2023- Exploratory laparotomy, subtotal colectomy (takedown of splenic flexure)
09/23/2023- 2nd look laparotomy and ileostomy (reopening of recent laparotomy)
Subjective Data
Date of Service: September 25, 2023
Remains intubated and sedated. Arousable.
Objective Data
-
Vital Signs
Temp Pulse Resp BP Pulse Ox
101.0 F H 80 14 108/56 983
09/25/23 07:49 09/25/23 07:54 09/25/23 05:30 09/25/23 07:54 09/25/23 07:51
Intake & Output
09/24/23 09/25/23 09/26/23
06:59 06:59 06:59
Intake Total 3992.5 / 4096.5 2779.9 / 2779.9
Output Total 4010 / 4310 5750 / 5750
Balance -17.5 / -213.5 -2970.1 / -2970.1
Intake:
IV fluids (Total) 1337.5 / 1381.5 1119.9 / 1119.9
Heparin 254 / 254
Vasopressin gtt 153 / 153
double conc levophed 442.7 / 469.0 305.8 / 305.8
fentanyl 210 / 220 230 / 230
nss 500 / 500
propofol 184.8 / 192.5 177.1 / 177.1
IV piggybacks 755 / 755 100 / 100
TPN/PPN 1200 / 1260 1380 / 1380
Amount instilled into GI Tube ( 100 / 100 180 / 180
Total)
[place] Sump 100 / 100 180 / 180
Blood Products 100 / 100
Albumin 25% 100 / 100
Blood Product Amount Infused ( 500 / 500
mL)
Packed Rbc Leukoreduced Unit 250 / 250
[id number]
Packed Rbc Leukoreduced Unit 250 / 250
[id number]
Output:
Liquid stool amount 200 / 200
Ileostomy 150 / 150
Rectum 50 / 50
Drain Output (Total) 855 / 855 845 / 845
Left Filiberto-Roche A 0 / 0
Left Filiberto-Roche B 375 / 375 455 / 455
Right Filiberto-Roche A 480 / 480 390 / 390
Gastrointestinal tube output ( 300 / 300 200 / 200
Total)
[place] Sump 300 / 300 200 / 200
Urine, Chavez 2855 / 3155 4505 / 4505
Lab Results
09/25/23 05:02
09/25/23 05:02
Physical Exam
-
General: No Acute Distress
Abdomen: Soft, Non Distended, Non Tender and Other (ileostomy is viable with liquid output and some gas; CHAY on right is clearing while the left is still dark in color but thin in consistency)
Extremities: No Calf Tenderness
Wound: Dressing in Place
--- NOTE | 2023-09-25 08:31 | W.PN.INTV ---
Today's Communication / Plan
Recommendations
Continue mechanical ventilation with daily SAT/SBT --> continue to diurese and will try PST tomorrow on 11/01
Continue heparin gtt and trend CBC
Transfuse as needed to keep Hb >7, plt>50 K
Abx as per ID
Start solumedrol with azithromycin + DuoNebs for suspected COPD exacerbation with increased sputum production
Pain control
TPN as per surgery; eventually tube feeds once ileostomy is functional
Prognosis guarded
Assessment
-
58-year-old man with past medical history noted, admitted to the emergency room with abdominal pain. Found to have bowel ischemia due to occlusion of prior aortic mesenteric bypass. Apparently patient stopped taking Plavix and statin since January
2022. Only on aspirin, emergently taken to the operating room. Transferred to the critical care unit, we were consulted for critical care management.
Impression:
- Ventilator dependent respiratory failure
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
- Status post exploratory laparotomy, lysis of adhesions, aortomesenteric bypass nick thrombectomy, mesenteric arteriogram, patch angioplasty of aortomesenteric bypass graft (OR date: 09-13-2023)
- Ischemic bowel c/b necrosis s/p ex-lap with subtotal colectomy with splenic flexure takedown and distal 70cm of TI also removed (OR date: 09/21/2023)
- Second look laparotomy with end-ileostomy creation (OR date: 09/23/2023)
- GI bleed - GI bleed was likely due to ischemic colitis
- Anemia due to acute blood loss
- Leukocytosis due to mesenteric ischemia
- Hyponatremia due to SIADH (acute on chronic - baseline Na approx 131-134) - SIADH is likely due to recent surgery
- Hyperglycemia
- Lactic acidosis - resolved
- Left flank ecchymosis
- Wheezing - resolved
- Bilateral pleural effusions left greater than right
Conditions present prior admission:
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
graft bypass into the celiac and SMA vessels.
Tobacco abuse
PFT's 06-19-21 with moderate airflow obstruction with some reversibility postbronchodilator on spirometry.-Not on bronchodilators
Moderate COPD/emphysema-not seen by pulmonary in the outpatient office for
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
History of left gastric anemic DVT status post apixaban 03/2021 post left knee surgery
History lumbar vasectomy
Chronic back pain-recent steroid taper
Plan
Patient continues to be critically ill on mechanical ventilation and in shock on vasopressors
Patient went back to the OR for laparotomy on 09/22 showing viable remaining small bowel with excellent Doppler signals, and an end-ileostomy was inserted.
Underwent colorectal surgery on 09/20 with necrotic/perforated transverse colon seen and ischemic bowel including the right colon, 70 cm of the terminal ileum and the left colon and the proximal jejunum was also becoming possibly ischemic towards the
end of the procedure. The bowel was left in discontinuity and was divided with 1 firing of the contour stapler. The left colon was resected with the proximal end left open.
Continue TPN in meantime and I discussed starting AC with vascular surgery and colorectal, and considering his recent GI bleed, we started chemical DVT ppx on 09/21; heparin gtt being started on 09/22
Continue mechanical ventilation with daily SAT/SBT, titrating FiO2 and PEEP to keep SpO2 >90-94% and keep PIP<30, plataeu pressure <30
VAP precautions
Nebulizers as needed-intermittently with wheezing-currently resolved
Considering the pt has COPD and has ETT thick, choe secretions with multiple recent surgeries and now on ventilator for few days, I will start solu-medrol 40mg IV q8r. Given his hyperglycemia I will start q6hr aspart to keep BG at goal 140-180.
Add azithro for anti-inflammatory effect. Start DuoNebs QID
Postoperative management as per colorectal/general surgery and vascular surgery -correspondence reviewed and recommendations are appreciated
POD#12 exploratory laparotomy, lysis of adhesions, aortomesenteric bypass nick thrombectomy, mesenteric arteriogram, patch angioplasty of aortomesenteric bypass
POD#4 subtotal colectomy
Antibiotics per surgery-was on Zosyn-changed to meropenem (started on 09-19 in addition to micafungin and IV vancomycin - IV vanco stopped on 09/23)
Follow cultures - Sujatha albicans seen on peritoneal culture from OR on 09-21-2023 + 09/23/2023
Infectious disease consultation noted-correspondence reviewed
NGT to suction
Once ileostomy is functional then willl likely start tube feeds - defer to colorectal for this decision
Pain management
Maintain MAP>65
Monitor hemoglobin
Transfuse as needed to keep Hb>7, plt>50k
GI evaluation-correspondence reviewed-no acute GI intervention recommended at this point
Continue PPI 40mg IV BID
Monitor renal function
Replace electrolytes as needed
Previously noted to have some hypoglycemia
Dextrose if needed
Continue TPN per surgery
Trend serum Na
Monitor liver functions
Smoking cessation counseling ongoing - not currently relevant; we can address this if pt is extubated
DVT prophylaxis- now on heparin gtt
Nutrition per surgery and vascular surgery
Note: Dr. Raman reviewed with ex- at the bedside with patient's permission-reviewed case 09/20/2023
Critical care statement: A total of 39 minutes of critical care time was provided for this patient today. This includes management of unstable vital signs, evaluation of the patient at bedside, reviewing the patient's pertinent medical records
including radiographs, transfusion management, pressor management, microbiology, laboratory evaluations, and discussion with primary team, consultants, pharmacy, nutrition, physical therapy, case management, charge nurse, critical care nursing, and
respiratory therapy.
Data:
CXR 09-21-2023: Endotracheal tube has been inserted with tip 2.3 cm above the yue.
CXR 09-23-2023: Bibasilar opacification most likely representing subsegmental atelectasis, left greater than right.
CXR 09-24-2023: Endotracheal tube is present with its tip 5.3 cm above the yue; Evidence for bilateral pleural effusions, probably small to moderate. Adjacent parenchymal opacity within the lower lungs, most likely representing atelectasis. Small
subtle opacity in the lateral aspect of the right upper lung stable dating back to June 25, 2021, likely a small focus of scarring. Stability is reassuring that this is benign.
CXR 09-25-2023: Bibasilar opacification without significant change.
CTA Abd/Pelvis with/without IV contrast 09-19-2023:
Markedly abnormal examination. No definite findings to suggest an acute retroperitoneal hemorrhage, however there is an increase in free fluid throughout the abdomen and pelvis.
There are small collections of intermediate density throughout the mesentery, concerning for small mesenteric hematomas.
Increased bilateral pleural effusions left greater than right and increased bibasilar consolidation.
As previously noted there is small bowel and large bowel wall thickening. Concerning for ischemia particularly in the transverse colon with increased stranding and inflammatory appearance.
Persistent free air and free fluid, concerning for an occult perforation, no definite site identified.
Celiac axis/SMA bypass graft similar to previous exam.
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 Chavez at 4:00 PM.
Left transversus abdominis intramuscular hematoma. Slightly increased compared to previous exam. Increased bilateral flank edema. Left greater than right. Consistent with the clinical concern for increased bruising.
CTA Abd/Pelvis with/without contrast 09-14-2023:�
Moderate small bowel wall and large bowel wall thickening as described above. Ischemia cannot be excluded.
Free air and free fluid in the abdomen and pelvis likely postsurgical change - new
Celiac axis/SMA bypass graft.
Moderate bibasilar consolidation - new
Chavez catheter present - new
Mild prostate hypertrophy - stable
CTA Abd/Pelvis with/without contrast 09-12-2023:
1. Complete occlusion of the celiac/SMA bypass graft as described.
2. Mild bilateral lower lobe infectious/inflammatory bronchiolitis change.
3. Mild T12 and L4 superior endplate compression deformities, new from 01/20/2023 and age indeterminate. Recommend correlation for any point tenderness in these regions.
Subjective Dataa
Subjective Data
Date of Service:
Date of Service: September 25, 2023
Chief Complaint: [employer] Justice Follow Up (Status post aortomesenteric bypass occlusion.) and Pulmonary Follow Up
Subjective:
Pt seen this AM. Remains intubated/sedated. He does awaken to verbal stimuli, follows commands and is in NAD. Hb 7.9 but no obvious bleeding seen. He is on levophed at 3mcg/min and vaso at 0.03units/min. He is on fent at 100mcg/hr and was
briefly on propofol at 20 mcg/kg/min overnight, and is currently at 15 mcg/kg/min. Net -2.9 L last 24 hours.
Review of Systems
General: Other (Unable to obtain due to patient's acute clinical status (intubated))
Objective Data
Data Reviewed
Vital Signs / I&O / Oxygen:
Vital Signs
Temp Pulse Resp BP Pulse Ox
101.0 F H 80 14 108/56 983
09/25/23 07:49 09/25/23 07:54 09/25/23 05:30 09/25/23 07:54 09/25/23 07:51
Intake and Output
09/24/23 09/25/23 09/26/23
06:59 06:59 06:59
Intake Total 3992.5 / 4096.5 2779.9 / 2779.9
Output Total 4010 / 4310 5750 / 5750
Balance -17.5 / -213.5 -2970.1 / -2970.1
SaO2 [A/C] 99
SaO2 983
Nasal Cannula flow liters per 2
minute
Physical Exam
General: Respiratory Distress (n), Comfortable and Other (intubated and in NAD)
HEENT: Normocephalic and Anicteric
Cardiovascular: S1-S2, Peripheral Edema (Negative) and Other (Left radial arterial catheter in place)
Respiratory: Wheeze (negative), Crackles (negative), Rhonchi (n), Non-Labored Respirations, Accessory Resp Muscle Use (n), Stridor (n), ET Tube and Other (Mechanical breath sounds heard bilaterally; coarse BS b/l)
GI: Distended, Non Tender, Other (Midline bandages without active bleeding) and Other (Firm abdomen, no peritoneal signs, hypoactive BS)
Neurology: Tremors (negative) and Lethargic (Arousable to voice)
Skin: Warm, Dry, Cyanosis (n) and Jaundice (n)
Labs/Micro/Reports
Lab Data
09/25/23 05:02
09/25/23 05:02
Laboratory Results
09/24/23 09/24/23 09/25/23
14:56 22:42 05:02
APTT 44.4 H 53.4 H 61.1 H
pH 7.43
pCO2 50 H
pO2 146 H
HCO3 33.2 H
O2 Delivery Level
Microbiology
09/23/23 16:45 Abdomen Anaerobic Culture - Preliminary
Culture pending. Anaerobic cultures are examined after 3
days incubation. Additional information to follow.
09/23/23 16:45 Fluid Body Fluid Culture - Preliminary
No Growth After 18-24 Hours
09/23/23 16:45 Fluid Gram Stain - Preliminary
09/20/23 10:03 Blood/Venous Blood Culture - Preliminary
No Growth in 4 days- Final report to follow
09/20/23 10:11 Blood/Venous Blood Culture - Preliminary
No Growth in 4 days- Final report to follow
09/21/23 15:00 Peritoneal Fluid Anaerobic Culture - Preliminary
Culture pending. Anaerobic cultures are examined after 3
days incubation. Additional information to follow.
09/21/23 15:00 Abdomen Wound Culture - Preliminary
Sujatha albicans
09/21/23 15:00 Abdomen Gram Stain - Preliminary
[2023-09-25] MEDS: DIPRIVAN 100 IV ×2 (08:38→18:02)
[2023-09-25] MEDS: MYCAMINE 105 MG IV (09:20)
[2023-09-25] MEDS: PITRESSIN 100 IV (09:56)
--- NOTE | 2023-09-25 10:00 | PTCARENOTE ---
Pt's and dtr fully updated at bedside. All questions answered.
--- NOTE | 2023-09-25 10:31 | W.PN.ID1 ---
Date of Service
Date of Service: September 25, 2023
Today's Communication
Continue antibiotics.
Assessment / Plan
Suspected peritonitis
Leukocytosis
Total SMA graft occlusion s/p thrombectomy (performed through prior graft) & patch
Acute mesenteric ischemia - ongoing
Resolving Shock Liver
Noncompliance
- murky fluid was noted in the abdomen in the OR, no perforations
- current cultures with C. albicans
- blood cultures x2 NGTD
- wound cx: c albicans
- continue meropenem, micafungin
- follow clinically
Case discussed with Vascular Surgery. Thrombectomy needed to be performed through prior graft, potentially exposing graft material to peritoneal contents. Patient may ultimately need chronic suppression.
Currently remains critically ill, VDRF and in intensive care unit.
Chief Complaint
-: Leukocytosis and Other (secondary peritonitis)
Subjective / Review of Systems
Patient seen and examined. Remains on vent at this time.
Vital Signs / Physical Exam
Vital Signs
Vital Signs
Temp Pulse Resp BP Pulse Ox
101.0 F H 80 14 108/56 983
09/25/23 07:49 09/25/23 07:54 09/25/23 05:30 09/25/23 07:54 09/25/23 07:51
Physical Exam
Constitutional: Acutely Ill and Non-toxic
Cardiovascular: S1/S2; Negative S3/S4
Pulmonary: Other (ET tube in place to vent)
Gastrointestinal: Soft, Non Distended, Decreased Bowel Sounds and Other (CHAY in place.)
Genito-Urinary: Chavez
Extremities: Edema; Negative Cyanosis or Erythema
Skin: Warm and Dry; Negative Rash
Wound: Other (Abdominal wound dressed.)
Neurological: Other (Arousable to touch)
Psychological: Calm
Objective Data
Lab Data
Lab Results
09/25/23 05:02
09/25/23 05:02
PT 17.8 Sec (11.4-14.6) H 09/13/23 03:17
INR 1.49 09/13/23 03:17
APTT 61.1 Sec (23.4-35.0) H 09/25/23 05:02
Estimated Creat Clear > 125 ml/min 09/25/23 05:02
Lactic Acid 1.5 mmol/L (0.7-2.0) 09/21/23 17:38
Total Bilirubin 1.6 mg/dl (0.2-1.3) H 09/25/23 05:02
AST 39 U/L (17-59) 09/25/23 05:02
ALT 20 U/L (0-50) 09/25/23 05:02
Alkaline Phosphatase 61 U/L (38-126) 09/25/23 05:02
Most recent labs reviewed.
Micro Results:
09/23/23 16:45 Body Fluid Culture - Preliminary
Fluid Sujatha albicans
Gram Stain - Preliminary
09/20/23 10:03 Blood Culture - Final
Blood/Venous No Growth - Final Report
09/20/23 10:11 Blood Culture - Final
Blood/Venous No Growth - Final Report
09/23/23 16:45 Anaerobic Culture - Preliminary
Abdomen Culture pending. Anaerobic cultures are examined after 3
days incubation. Additional information to follow.
09/21/23 15:00 Anaerobic Culture - Preliminary
Peritoneal Fluid Culture pending. Anaerobic cultures are examined after 3
days incubation. Additional information to follow.
09/21/23 15:00 Wound Culture - Preliminary
Abdomen Sujatha albicans
Gram Stain - Preliminary
09/12/23 18:05 Blood Culture - Final
Blood/Venous No Growth - Final Report
09/12/23 18:05 Influenza Types A & B (ALAN) - Final
Nasal Swab Negative for Influenza A & B, NAAT
Negative results must be combined with clinical observations
and patient history.
Nucleic Acid Amplification test (NAAT)performed on the
[employer] platform.
Care Review
Plan reviewed with: Physician (Vascular Surgery)
[2023-09-25] MEDS: OFIRMEV 100 IV (10:51)
--- NOTE | 2023-09-25 12:00 | PTCARENOTE ---
Vent changes per ....TV increased to 500 and RR increased to 16....see vent intervention. Labs sent. No major changes in physical assessment since am. Remains intubated and sedated. Repositioned q2h. Will continue to monitor closely.
[2023-09-25 12:02] LABS: Glucose - Point of Care 201 mg/dl (70-99)
--- NOTE | 2023-09-25 12:03 | W.PN.HOSP.TC ---
Today's Communication/Plan
-
continue to wean vent/pressors
continue IV Abx
consider 1 unit PRBC
Assessment / Plan
Assessment / Plan
Assessment:
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
- s/p Exploratory laparotomy, lysis of adhesions, aorto-mesenteric bypass Tona thrombectomy, mesenteric arteriogram, patch angioplasty of aorto-mesenteric bypass 09/12
- Vascular following
- CT-A 09/13 showing patient bypass, concern for bowel ischemia (see below)
Ischemic bowel c/b necrotic bowel
- CRS managing
- s/p ex-lap 09/20: Necrotic and perforated entire transverse colon, ischemic right colon and terminal ileum, ischemic left colon, ? ischemia of the proximal jejunum. 70 cm terminal colon with entire right colon, transverse colon and descending colon
removed.
- s/p 2nd look ex-lap 09/22 with Murky fluid throughout the abdomen, viable remaining small intestine with excellent Doppler signals, Haily ileostomy
- continue IV Heparin
- ID following for suspected secondary peritonitis. Continue Meropenem, Micafungin. May need chronic suppression.
- Hematology input about thrombophilia assessments noted - transition into DOAC once off of IV heparin and follow with office for work up.
Ventilator dependent respiratory failure
- wean per pulmonary; management per ICU
Post-op shock - multifactorial from sepsis/blood loss
- continue pressors; wean as able
- Echo normal EF
GI bleed related to ischemic colitis
Acute blood loss anemia
- monitor Hb
- consider transfusion
- continue PPI
Hyponatremia due to SIADH (acute on chronic - baseline Na approx 131-134) - SIADH is likely due to recent surgery, also component of volume overload
- BNP only mildly elevated
- Echo normal
- IV Lasix BID continues
Left flank ecchymosis
Bilateral pleural effusions left greater than right
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
CAD s/p prior hx of NSTEMI - asymptomatic without chest pain. On aspirin at home.
Hyperbilirubinemia- mostly indirect elevation, possible Gilbert's + hematomas related. Continue to follow.
Hypocalcemia - replete
Hx of DVT status post apixaban 03/2021 post left knee surgery
Chronic back pain - recent steroid taper. Continued mid back pain which is a equally troubling. No sciatica . plain xrays show loss of height of superior endplate t12,l4 . Pt had pull while lifting something at home but no fall or trauma. continue
symptomatic tx
Hyperglycemia
No hx of DM
- HbA1C 5.8
Tobacco abuse - remains actively smoking. Cessation recommended.
Nutrition - resumed TPN. Hypoalbuminemia severe noted.
DVT ppx: IV Heparin
Code: Full
Total Critical Care Time 42 minutes. I was immediately available to the patient and staff. I personally examined, reviewed labs, diagnostic images/reports, interpretations, treatment plans, discussed patient care with other providers and family
or caregivers (if patient is unable to make decisions), entered orders as appropriate and documented the medical record.
Anticipated Discharge: > 48 hours
Subjective/Interval History
-
Date of Service: September 25, 2023
remains intubated/sedated
Objective Data
-
Labs:
Laboratory Results
09/25/23 09/25/23
05:02 11:51
WBC 14.5 H Pending
Hgb 7.9 L Pending
Hct 23.5 L Pending
Plt Count 289 Pending
APTT 61.1 H Pending
HCO3 33.2 H
Sodium 133 L
Potassium 4.1
Chloride 103
Carbon Dioxide 30
BUN 17
Creatinine 0.6 L
Glucose 200 H
Calcium 7.2 L
Total Bilirubin 1.6 H
AST 39
ALT 20
Alkaline Phosphatase 61
Vital Signs:
Vital Signs
Temp Pulse Resp BP Pulse Ox
101.0 F H 80 14 108/56 98
09/25/23 07:49 09/25/23 07:54 09/25/23 05:30 09/25/23 07:54 09/25/23 11:05
I&O
09/24/23 09/25/23 09/26/23
06:59 06:59 06:59
Intake Total 3992.5 / 4096.5 2890.8 / 3004.7 566.5 / 566.5
Output Total 4010 / 4310 5800 / 5850 1230 / 1230
Balance -17.5 / -213.5 -2909.2 / -2845.3 -663.5 / -663.5
Physical Exam
-
General: No Apparent Distress and Intubated
HEENT: Normocephalic and Atraumatic
Respiratory: Negative Wheezes or Rales
Cardiac: Regular Rhythm and S1/S2
GI: Soft
Genito-urinary: No Costovertebral Tender
Neuro: AO x 3
Hematologic / Lymphatic: No Lymphadenopathy
Psych: Calm
Data Reviewed
-
Critical Care Time (in minutes): 41
Labs: Labs Reviewed by me
[2023-09-25 12:09] LABS: Hematocrit 22.4 % (39.0-52.0); Hemoglobin 7.7 g/dL (13.0-18.0); Mean Corp Hgb Conc. 34.4 g/dL (33.0-37.0); Mean Corpuscular Hgb 30.6 pg (27.0-31.0); Mean Corpuscular Volume 88.9 fL (80.0-94.0); Mean Platelet Volume 13.5 fL (7.4-10.4); Platelet Count 320 10^3/uL (130-400); Red Blood Cell Count 2.52 10^6/uL (4.70-6.10); Red Cell Dist. Width 16.3 % (11.5-14.5); White Blood Cell Count 15.5 10^3/uL (4.8-10.8)
[2023-09-25 12:15] LABS: APTT 74.2 Sec (23.4-35.0)
--- NOTE | 2023-09-25 12:42 | W.PN.UPDATE ---
Update Note
Progress Note Update
Patient seen and examined
Chart reviewed
Continue heparin drip with therapeutic PTT goal
Communicated with infectious disease regarding my concern over intra-abdominal contamination with adjacent prosthetic graft material that cannot be removed.
Antibiotic plan accordingly
Will follow peripherally
Ayaz Chavez III, MD
[facility]
[phone] ([phone])
[2023-09-25] MEDS: NOVOLOG FLEXPEN 5 UNITS SC ×2 (13:02→17:37)
[2023-09-25] MEDS: SOLU-MEDROL PF 40 MG IV ×2 (13:03→20:13)
--- NOTE | 2023-09-25 15:13 | CM ---
CM following re: discharge planning.
Discussed in rounds, reviewed pt's chart, met with pt. Pt's son Venkatesh, brother Francisco who came from [place] and ex- at bedside. Pt is POD#2, 2nd look laparotomy and ileostomy (reopening of recent laparotomy), POD#4 Exploratory laparotomy, subtotal
colectomy (takedown of splenic flexure), remains intubated, continue supportive care.
Completed documentation and signed by MD and pt's son Venkatesh signed on behalf of the pt faxed and E:mailed to pt's employer HR department to complete their part and will be forwarded to [employer] for pt's short term
disability benefits
PT and OT recommended SNF level of care. PT and OT will reevaluate when clinically appropriate to confirm a level of care at discharge.
D/C plan: SNF level of care when medically stable. Pt has a list of SNFs. Acute rehab might be another option giving the fact of medical complications.
CM will follow with discharge plan updates as hospitalization progresses
--- NOTE | 2023-09-25 16:09 | PTCARENOTE ---
Pt remains intubated and sedated. Levophed gtt placed on hold @ 1500. Vasopressin gtt placed on hold @ 1600. Will monitor closely to maintain MAP > 65. Pt's hair washed, back rubbed, and linen changed. Repeat Hgb @ 1700.
--- NOTE | 2023-09-25 17:00 | PTCARENOTE ---
Spoke w/ ex (pt's contact) and she adamantly does not want the brother Davy updated by any staff (ie MD's, nurses, or social work).
[2023-09-25 17:10] LABS: Hemoglobin 7.9 g/dL (13.0-18.0)
[2023-09-25] MEDS: NOVOLOG FLEXPEN-MODERATE RESISTANCE 1 UNITS SC (17:37)
[2023-09-25 17:46] LABS: Glucose - Point of Care 170 mg/dl (70-99)
[2023-09-25 18:44] LABS: APTT 102.6 Sec (23.4-35.0)
--- NOTE | 2023-09-25 20:00 | PTCARENOTE ---
Patient received in bed sedated on Propofol and Fentanyl gtts. bilateral wrist restraints maintained. NSR on monitor, afebrile, blood pressure as documented. + anasarca and scrotal edema. Knne high SCDs maintained. distal pulses present by
doppler. #8 ETT at 25 cm at the left lip, tolerating A/C 16 TV 500 FIO2 40% peep 5, lungs coarse. Suctioned for large amount thick choe. Taiban sump in right nare draining brown. green. Abdomen soft with absent bowel sounds. Illeostomy draining
liquid brown stool. Temp sensing garcía draining jovani urine. Midline abdominal incision with 4x4 clean dry and intact. Left CHAY draining serosanguineous, right CHAY draining serous. RDL PICC with TPN, propofol, fentanyl, heparin gtts infusing as
documented. left radial [place] transduced and zeroed. Turned and repositioned
[2023-09-25] MEDS: DUONEB 3 ML INH (20:06)
[2023-09-25] MEDS: ZITHROMAX INFUSION 250 IV (20:17)
[2023-09-25] MEDS: Parenteral Nutrition, Central 1440 IV (20:43)
--- NOTE | 2023-09-25 22:00 | PTCARENOTE ---
MAP below 65, Levophed gtt restarted
[2023-09-25 22:36] LABS: Haptoglobin 97 mg/dL (30-200)
[2023-09-25 23:38] LABS: Glucose - Point of Care 246 mg/dl (70-99)
--- NOTE | 2023-09-25 23:59 | PTCARENOTE ---
Patient reassessed, no changes in assessment
[2023-09-26] MEDS: NOVOLOG FLEXPEN-MODERATE RESISTANCE 3 UNITS SC ×2 (00:03→11:36)
[2023-09-26] MEDS: NOVOLOG FLEXPEN 5 UNITS SC ×3 (00:04→11:36)
[2023-09-26] MEDS: MERREM 500 MG IV ×4 (03:03→22:29)
[2023-09-26] MEDS: SOLU-MEDROL PF 40 MG IV ×3 (03:03→20:25)
[2023-09-26] MEDS: STERILE WATER FOR INJECTION 10 ML IV ×4 (03:03→22:30)
[2023-09-26] MEDS: SUBLIMAZE 50 MCG IV ×3 (03:36→20:25)
[2023-09-26] MEDS: SUBLIMAZE 100 IV ×2 (04:11→23:43)
[2023-09-26] MEDS: DIPRIVAN 100 IV (04:11)
[2023-09-26 05:37] LABS: Glucose - Point of Care 253 mg/dl (70-99)
[2023-09-26] MEDS: NOVOLOG FLEXPEN-MODERATE RESISTANCE 5 UNITS SC (05:43)
[2023-09-26 05:47] VITALS: BMI 26.0
[2023-09-26 06:16] LABS: % Basophils 0.3 % (0-2); % Immature Granulocytes 1.2 % (0-0.5); % Lymphocytes 7.3 % (20.5-51.1); % Monocytes 3.3 % (1.7-9.3); % Neutrophils 87.9 % (42.2-75.2); Absolute Basophils 0.1 10^3/uL (0-0.2); Absolute Immature Granulocytes 0.2 10^3/uL (0-0.05); Absolute Lymphocytes 1.5 10^3/uL (1.2-3.4); Absolute Monocytes 0.7 10^3/uL (0.1-0.6); Absolute Neutrophils 17.4 10^3/uL (1.4-6.5); Hematocrit 23.3 % (39.0-52.0); Hemoglobin 7.8 g/dL (13.0-18.0); Mean Corp Hgb Conc. 33.5 g/dL (33.0-37.0); Mean Corpuscular Hgb 29.5 pg (27.0-31.0); Mean Corpuscular Volume 88.3 fL (80.0-94.0); Nucleated Red Blood Cells % 2.3 % (-); Red Blood Cell Count 2.64 10^6/uL (4.70-6.10); Red Cell Dist. Width 15.9 % (11.5-14.5); White Blood Cell Count 19.8 10^3/uL (4.8-10.8)
[2023-09-26 06:22] LABS: APTT 66.6 Sec (23.4-35.0)
[2023-09-26 06:59] LABS: ALT (SGPT) 22 U/L (0-50); AST (SGOT) 50 U/L (17-59); Albumin 1.8 g/dl (3.5-5.0); Alkaline Phosphatase 84 U/L (38-126); Blood Urea Nitrogen 27 mg/dl (9-20); Calcium 7.4 mg/dl (8.4-10.2); Carbon Dioxide 28 mmol/L (22-30); Chloride 103 mmol/L (98-107); Estimated Creatinine Clearance 120 ml/min; Glucose 226 mg/dl (70-99); Potassium 4.7 mmol/L (3.5-5.1); Sodium 133 mmol/L (135-145); Total Bilirubin 1.6 mg/dl (0.2-1.3); Total Protein 4.4 g/dl (6.3-8.2); eGFR > 60.00
[2023-09-26] MEDS: DUONEB 3 ML INH ×4 (07:39→19:49)
[2023-09-26 08:00] VITALS: BP 101/52
[2023-09-26] MEDS: LASIX 40 MG IV ×2 (08:16→16:39)
[2023-09-26] MEDS: ASPIRIN 300 MG RECTAL (08:16)
[2023-09-26] MEDS: PROTONIX IV 40 MG IV ×2 (08:17→20:25)
[2023-09-26] MEDS: NSS (PRESERVATIVE FREE) 10 ML IV ×2 (08:17→20:25)
[2023-09-26] MEDS: HEPARIN 25000 UNITS/250 ML IV ×2 (08:18→20:34)
[2023-09-26] MEDS: ZITHROMAX 252.5 MG IV (08:18)
[2023-09-26] MEDS: LANTUS 0.119999999999999996 UNITS SC (08:18)
--- NOTE | 2023-09-26 09:01 | W.PN.INTV ---
Today's Communication / Plan
Recommendations
Continue mechanical ventilation with daily SAT/SBT --> continue to diurese and will try PST tomorrow on 11/01
Continue heparin gtt and trend CBC
Transfuse as needed to keep Hb >7, plt>50 K
Abx as per ID
Continue solumedrol with azithromycin + DuoNebs for suspected COPD exacerbation
Pain control
TPN as per surgery; eventually tube feeds once ileostomy is functional
Prognosis guarded
Assessment
-
58-year-old man with past medical history noted, admitted to the emergency room with abdominal pain. Found to have bowel ischemia due to occlusion of prior aortic mesenteric bypass. Apparently patient stopped taking Plavix and statin since January
2022. Only on aspirin, emergently taken to the operating room. Transferred to the critical care unit, we were consulted for critical care management.
Impression:
- Ventilator dependent respiratory failure
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
- Status post exploratory laparotomy, lysis of adhesions, aortomesenteric bypass nick thrombectomy, mesenteric arteriogram, patch angioplasty of aortomesenteric bypass graft (OR date: 09-13-2023)
- Ischemic bowel c/b necrosis s/p ex-lap with subtotal colectomy with splenic flexure takedown and distal 70cm of TI also removed (OR date: 09/21/2023)
- Second look laparotomy with end-ileostomy creation (OR date: 09/23/2023)
- GI bleed - GI bleed was likely due to ischemic colitis
- Anemia due to acute blood loss
- Leukocytosis due to mesenteric ischemia
- Hyponatremia due to SIADH (acute on chronic - baseline Na approx 131-134) - SIADH is likely due to recent surgery
- Hyperglycemia
- Lactic acidosis - resolved
- Left flank ecchymosis
- Wheezing - resolved
- Bilateral pleural effusions left greater than right
Conditions present prior admission:
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
graft bypass into the celiac and SMA vessels.
Tobacco abuse
PFT's 06-19-21 with moderate airflow obstruction with some reversibility postbronchodilator on spirometry.-Not on bronchodilators
Moderate COPD/emphysema-not seen by pulmonary in the outpatient office for
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
History of left gastric anemic DVT status post apixaban 03/2021 post left knee surgery
History lumbar vasectomy
Chronic back pain-recent steroid taper
Plan
Patient continues to be critically ill on mechanical ventilation, albeit he is HDN improved and now off vasopressors since sedation was weaned off
ABG was reviewed and vent was adjusted
Maintain SpO2 >88%, keep plateau pressure <30 and daily SAT/SBT as clinically appropriate
Patient went back to the OR for laparotomy on 09/22 showing viable remaining small bowel with excellent Doppler signals, and an end-ileostomy was inserted.
Underwent colorectal surgery on 09/20 with necrotic/perforated transverse colon seen and ischemic bowel including the right colon, 70 cm of the terminal ileum and the left colon and the proximal jejunum was also becoming possibly ischemic towards the
end of the procedure. The bowel was left in discontinuity and was divided with 1 firing of the contour stapler. The left colon was resected with the proximal end left open.
Continue TPN in meantime and I discussed starting AC with vascular surgery and colorectal, and considering his recent GI bleed, we started chemical DVT ppx on 09/21; heparin gtt being re-started on 09/22
Continue mechanical ventilation with daily SAT/SBT, titrating FiO2 and PEEP to keep SpO2 >90-94% and keep PIP<30, plataeu pressure <30
VAP precautions
Nebulizers as needed-intermittently with wheezing-currently resolved
Considering the pt has COPD and on 09/24 had thick thick, choe secretions from ETT with multiple recent surgeries and now on ventilator for few days, I started solu-medrol 40mg IV q8r. His ETT secretions have already improved dramatically. Given
his hyperglycemia I started q6hr aspart to keep BG at goal 140-180 in addition to the lantus - however he still remains hyperglycemci. Now will start insulin gtt for glycemic control (critically ill insulin order set). Continue azithro for
anti-inflammatory effect and continue DuoNebs QID
Postoperative management as per colorectal/general surgery and vascular surgery -correspondence reviewed and recommendations are appreciated
POD#13 exploratory laparotomy, lysis of adhesions, aortomesenteric bypass nick thrombectomy, mesenteric arteriogram, patch angioplasty of aortomesenteric bypass
POD#5 subtotal colectomy
Antibiotics per surgery-was on Zosyn-changed to meropenem (started on 09-19 in addition to micafungin and IV vancomycin - IV vanco stopped on 09/23)
Follow cultures - Sujatha albicans seen on peritoneal culture from OR on 09-20-2023 + 09/23/2023
Infectious disease consultation noted-correspondence reviewed
NGT to suction
Once ileostomy is functional then will start tube feeds - defer to colorectal for this decision
Pain management
Maintain MAP>65
Monitor hemoglobin
Transfuse as needed to keep Hb>7, plt>50k
GI evaluation-correspondence reviewed-no acute GI intervention recommended at this point
Continue PPI 40mg IV BID
Monitor renal function
Replace electrolytes as needed
Previously noted to have some hypoglycemia
Dextrose if needed
Continue TPN per surgery
Trend serum Na
Monitor liver functions
Smoking cessation counseling ongoing - not currently relevant; we can address this if pt is extubated
DVT prophylaxis- heparin gtt
Nutrition per surgery and vascular surgery
Note: Dr. Raman reviewed with ex- at the bedside with patient's permission-reviewed case 09/20/2023
Critical care statement: A total of 41 minutes of critical care time was provided for this patient today. This includes management of unstable vital signs, evaluation of the patient at bedside, reviewing the patient's pertinent medical records
including radiographs, transfusion management, pressor management, microbiology, laboratory evaluations, and discussion with primary team, consultants, pharmacy, nutrition, physical therapy, case management, charge nurse, critical care nursing, and
respiratory therapy.
Data:
CXR 09-21-2023: Endotracheal tube has been inserted with tip 2.3 cm above the yue.
CXR 09-23-2023: Bibasilar opacification most likely representing subsegmental atelectasis, left greater than right.
CXR 09-24-2023: Endotracheal tube is present with its tip 5.3 cm above the yue; Evidence for bilateral pleural effusions, probably small to moderate. Adjacent parenchymal opacity within the lower lungs, most likely representing atelectasis. Small
subtle opacity in the lateral aspect of the right upper lung stable dating back to June 25, 2021, likely a small focus of scarring. Stability is reassuring that this is benign.
CXR 09-25-2023: Bibasilar opacification without significant change.
CXR 09-26-2023: Persistent bibasilar atelectasis and pleural fluid, minimal improvement in aeration compared to previous exams.
CTA Abd/Pelvis with/without IV contrast 09-19-2023:
Markedly abnormal examination. No definite findings to suggest an acute retroperitoneal hemorrhage, however there is an increase in free fluid throughout the abdomen and pelvis.
There are small collections of intermediate density throughout the mesentery, concerning for small mesenteric hematomas.
Increased bilateral pleural effusions left greater than right and increased bibasilar consolidation.
As previously noted there is small bowel and large bowel wall thickening. Concerning for ischemia particularly in the transverse colon with increased stranding and inflammatory appearance.
Persistent free air and free fluid, concerning for an occult perforation, no definite site identified.
Celiac axis/SMA bypass graft similar to previous exam.
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 Chavez at 4:00 PM.
Left transversus abdominis intramuscular hematoma. Slightly increased compared to previous exam. Increased bilateral flank edema. Left greater than right. Consistent with the clinical concern for increased bruising.
CTA Abd/Pelvis with/without contrast 09-14-2023:�
Moderate small bowel wall and large bowel wall thickening as described above. Ischemia cannot be excluded.
Free air and free fluid in the abdomen and pelvis likely postsurgical change - new
Celiac axis/SMA bypass graft.
Moderate bibasilar consolidation - new
Chavez catheter present - new
Mild prostate hypertrophy - stable
CTA Abd/Pelvis with/without contrast 09-12-2023:
1. Complete occlusion of the celiac/SMA bypass graft as described.
2. Mild bilateral lower lobe infectious/inflammatory bronchiolitis change.
3. Mild T12 and L4 superior endplate compression deformities, new from 01/20/2023 and age indeterminate. Recommend correlation for any point tenderness in these regions.
Subjective Dataa
Subjective Data
Date of Service:
Date of Service: September 26, 2023
Chief Complaint: Channel Account Manager Follow Up (Status post aortomesenteric bypass occlusion.) and Pulmonary Follow Up
Subjective:
Pt seen and evaluated this AM. On PST 11/01 40%. SpO2 95%, HR 107, BP 101/52. He is following commands, but weak. Unable to lift head off pillow. On fentany at 25mcg/hr. Off vasopressors this AM when sedation was turned. On TPN. He is net (-)
1.6 L last 24 hrs. His ETT secretions have improved today and there is a scant amount.
Review of Systems
General: Other (Unable to obtain due to patient's acute clinical status (intubated))
Objective Data
Data Reviewed
Vital Signs / I&O / Oxygen:
Vital Signs
Temp Pulse Resp BP Pulse Ox
99.5 F 107 18 101/52 95
09/26/23 11:16 09/26/23 11:30 09/26/23 11:30 09/26/23 08:00 09/26/23 11:30
Intake and Output
09/25/23 09/26/23 09/27/23
06:59 06:59 06:59
Intake Total 2890.8 / 3004.7 2842.8 / 2947.9 757.8 / 757.8
Output Total 5800 / 5850 4485 / 4485 695 / 695
Balance -2909.2 / -2845.3 -1642.2 / -1537.1 62.8 / 62.8
SaO2 [A/C] 94
SaO2 95
Nasal Cannula flow liters per 2
minute
Physical Exam
General: Respiratory Distress (n), Comfortable and Other (intubated and in NAD)
HEENT: Normocephalic and Anicteric
Cardiovascular: S1-S2, Peripheral Edema (Negative) and Other (Left radial arterial catheter in place)
Respiratory: Wheeze (negative), Crackles (negative), Rhonchi (n), Non-Labored Respirations, Accessory Resp Muscle Use (n), Stridor (n), ET Tube and Other (Mechanical breath sounds heard bilaterally; coarse BS b/l)
GI: Soft, Distended, Non Tender, Other (Midline bandages without active bleeding) and Other (Firm abdomen, no peritoneal signs, hypoactive BS)
Neurology: Awake and Tremors (negative)
Skin: Warm, Dry, Cyanosis (n) and Jaundice (n)
Labs/Micro/Reports
Lab Data
09/26/23 05:08
09/26/23 05:08
Laboratory Results
09/25/23 09/25/23 09/26/23
11:51 18:28 05:08
APTT 74.2 H 102.6 H 66.6 H
pH
pCO2
pO2
HCO3
O2 Delivery Level
09/26/23
11:04
APTT
pH 7.48 H
pCO2 45
pO2 98
HCO3 33.5 H
O2 Delivery Level
Microbiology
09/23/23 16:45 Abdomen Anaerobic Culture - Preliminary
Culture pending. Anaerobic cultures are examined after 3
days incubation. Additional information to follow.
09/23/23 16:45 Fluid Body Fluid Culture - Preliminary
Sujatha albicans
09/23/23 16:45 Fluid Gram Stain - Preliminary
09/21/23 15:00 Peritoneal Fluid Anaerobic Culture - Preliminary
Culture pending. Anaerobic cultures are examined after 3
days incubation. Additional information to follow.
09/20/23 10:03 Blood/Venous Blood Culture - Final
No Growth - Final Report
09/20/23 10:11 Blood/Venous Blood Culture - Final
No Growth - Final Report
09/21/23 15:00 Abdomen Wound Culture - Preliminary
Sujatha albicans
09/21/23 15:00 Abdomen Gram Stain - Preliminary
--- NOTE | 2023-09-26 09:35 | W.PN.HOSP.TC ---
Today's Communication/Plan
-
continue IV Heparin, continue TPN
continue IV Abx
continue IV Lasix
wean vent/pressors as able
Assessment / Plan
Assessment / Plan
Assessment:
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
- s/p Exploratory laparotomy, lysis of adhesions, aorto-mesenteric bypass Tona thrombectomy, mesenteric arteriogram, patch angioplasty of aorto-mesenteric bypass 09/12
- Vascular following
- CT-A 09/13 showing patient bypass, concern for bowel ischemia (see below)
Ischemic bowel c/b necrotic bowel
- CRS managing
- s/p ex-lap 09/20: Necrotic and perforated entire transverse colon, ischemic right colon and terminal ileum, ischemic left colon, ? ischemia of the proximal jejunum. 70 cm terminal colon with entire right colon, transverse colon and descending colon
removed.
- s/p 2nd look ex-lap 09/22 with Murky fluid throughout the abdomen, viable remaining small intestine with excellent Doppler signals, Haily ileostomy
- continue IV Heparin with PTT protocol
- ID following for suspected secondary peritonitis. Continue Meropenem, Micafungin. May need chronic suppression.
- Hematology input about thrombophilia assessments noted - transition into DOAC once off of IV heparin and follow with office for work up.
Ventilator dependent respiratory failure
- wean per pulmonary; management per ICU
Post-op shock - multifactorial from sepsis/blood loss
- continue pressors; wean as able
- Echo normal EF
GI bleed related to ischemic colitis
Acute blood loss anemia
- monitor Hb
- consider transfusion
- continue PPI
Hyponatremia due to SIADH (acute on chronic - baseline Na approx 131-134) - SIADH is likely due to recent surgery, also component of volume overload
- BNP only mildly elevated but patient up at least 20-25 pounds
- Echo normal
- IV Lasix BID continues
Left flank ecchymosis
Bilateral pleural effusions left greater than right
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
CAD s/p prior hx of NSTEMI - asymptomatic without chest pain. On aspirin at home.
Hyperbilirubinemia- mostly indirect elevation, possible Gilbert's + hematomas related. Continue to follow.
Hypocalcemia - replete
Hx of DVT status post apixaban 03/2021 post left knee surgery
Chronic back pain - recent steroid taper. Continued mid back pain which is a equally troubling. No sciatica . plain xrays show loss of height of superior endplate t12,l4 . Pt had pull while lifting something at home but no fall or trauma. continue
symptomatic tx
Hyperglycemia
No hx of DM
- HbA1C 5.8
Tobacco abuse - remains actively smoking. Cessation recommended.
Nutrition - resumed TPN. Hypoalbuminemia severe noted.
DVT ppx: IV Heparin
Code: Full
Total Critical Care Time 39 minutes. I was immediately available to the patient and staff. I personally examined, reviewed labs, diagnostic images/reports, interpretations, treatment plans, discussed patient care with other providers and family
or caregivers (if patient is unable to make decisions), entered orders as appropriate and documented the medical record.
Anticipated Discharge: > 48 hours
Subjective/Interval History
-
Date of Service: September 26, 2023
remains intubated, sedated
last fever 11 AM yesterday
Objective Data
-
Labs:
Laboratory Results
09/26/23 09/26/23
05:08 12:30
WBC 19.8 H
Hgb 7.8 L
Hct 23.3 L
Plt Count
APTT 66.6 H Pending
Sodium 133 L
Potassium 4.7
Chloride 103
Carbon Dioxide 28
BUN 27 H
Creatinine 0.7
Glucose 226 H
Calcium 7.4 L
Total Bilirubin 1.6 H
AST 50
ALT 22
Alkaline Phosphatase 84
Vital Signs:
Vital Signs
Temp Pulse Resp BP Pulse Ox
98.8 F 66 16 86/44 96
09/26/23 07:58 09/26/23 07:40 09/26/23 07:40 09/25/23 20:00 09/26/23 07:40
I&O
09/25/23 09/26/23 09/27/23
06:59 06:59 06:59
Intake Total 2890.8 / 3004.7 2842.8 / 2945.9 522.3 / 522.3
Output Total 5800 / 5850 4485 / 4485 490 / 490
Balance -2909.2 / -2845.3 -1642.2 / -1539.1 32.3 / 32.3
Physical Exam
-
General: No Apparent Distress and Intubated
HEENT: Normocephalic and Atraumatic
Respiratory: Rales; Negative Wheezes
Cardiac: Regular Rhythm and S1/S2
GI: Soft
Musculoskeletal: Edema, Right Lower Extrem and Edema, Left Lower Extrem
Neuro: Awake
Psych: Calm
Data Reviewed
-
Critical Care Time (in minutes): 39
Labs: Labs Reviewed by me
[2023-09-26 09:45] VITALS: BP_SYST 137
[2023-09-26 09:57] VITALS: BP_SYST 123
--- NOTE | 2023-09-26 10:00 | W.PN.CRS1 ---
Today's Communication / Plan
-
continue ngt
daily tpn
Assessment/Plan
-
POD #3 2nd look laparotomy and ileostomy, POD#4 Exploratory laparotomy, subtotal colectomy for ischemic bowel
1. He continues on levophed and vasopressin.
2. Adequate urine output.
3. Hgb down a bit (7.8 g/dL) but no evidence of bleeding.
4. Still with fevers - recent cultures pending.
5. Ileostomy appears healthy and is starting to function.
6. Continue NGT for now.
7. Continue daily TPN.
Subjective Data
Procedure
09/21/2023- Exploratory laparotomy, subtotal colectomy (takedown of splenic flexure)
09/23/2023- 2nd look laparotomy and ileostomy (reopening of recent laparotomy)
Subjective Data
Date of Service: September 26, 2023
Patient is intubated and sedated. He shakes his head 'no' when asked if he has pain.
Objective Data
-
Vital Signs
Temp Pulse Resp BP Pulse Ox
98.8 F 87 14 86/44 96
09/26/23 07:58 09/26/23 09:57 09/26/23 09:57 09/25/23 20:00 09/26/23 09:57
Intake & Output
09/25/23 09/26/23 09/27/23
06:59 06:59 06:59
Intake Total 2890.8 / 3004.7 2842.8 / 2945.9 522.3 / 522.3
Output Total 5800 / 5850 4485 / 4485 490 / 490
Balance -2909.2 / -2845.3 -1642.2 / -1539.1 32.3 / 32.3
Intake:
IV fluids (Total) 1170.8 / 1224.7 1022.8 / 1065.9 132.3 / 132.3
Heparin 270 / 289 456 / 475 57 / 57
Vasopressin gtt 162 / 171 81 / 81
double conc levophed 311.4 / 317.0 37.6 / 37.6
fentanyl 240 / 250 240 / 250 30 / 30
levophed 11.4 / 11.4
propofol 187.4 / 197.7 208.2 / 218.5 33.9 / 33.9
IV piggybacks 100 / 100 200 / 200 270 / 270
TPN/PPN 1440 / 1500 1440 / 1500 120 / 120
Amount instilled into GI Tube ( 180 / 180 180 / 180
Total)
Barber Sump 180 / 180 180 / 180
Output:
Liquid stool amount 200 / 200 325 / 325
Ileostomy 150 / 150 325 / 325
Rectum 50 / 50
Drain Output (Total) 845 / 845 430 / 430 70 / 70
Left Filiberto-Roche B 455 / 455 250 / 250 50 / 50
Right Filiberto-Roche A 390 / 390 180 / 180 20 / 20
Gastrointestinal tube output ( 200 / 200 400 / 400
Total)
Barber Sump 200 / 200 400 / 400
Urine, Chavez 4555 / 4605 3330 / 3330 420 / 420
Lab Results
09/26/23 05:08
09/26/23 05:08
Physical Exam
-
General: No Acute Distress and AOx3
Abdomen: Soft, Non Distended, Non Tender and Other (Drain A - serous, Drain B - murky brown )
Wound: Dressing Changed
Incision: Clear, Dry, Intact
[2023-09-26 10:15] VITALS: BP_SYST 114
[2023-09-26] MEDS: MYCAMINE 105 MG IV (11:01)
[2023-09-26 11:19] LABS: B.E. 9.1 mmol/L; HCO3 33.5 mmol/L (21-28); O2 Saturation % 99.1 % (94-98); PCO2 45 mmHg (35-48); PO2 98 mmHg (83-108); pH 7.48 (7.35-7.45)
[2023-09-26 11:46] LABS: Glucose - Point of Care 241 mg/dl (70-99)
[2023-09-26 12:00] VITALS: BP 90/48
--- NOTE | 2023-09-26 12:00 | PTCARENOTE ---
Pt alert and nodding appropriately. Tolerating SBT. Lungs course. Scant sectretions via ETT. Sinus rhythm to sinus tach. +2 general edema. Levophed weaned off. TPN, heparin gtt and Fentanyl gtt at 25mcg/hr infusing. NGT to LIS with
green/brown drainage. Abdominal dressing C/D/I. Left CHAY with brown drainage and right CHAY with serosanguineous. Ileostomy with green/drown drainage. Chavez draining jovani. Blood sugars elevated. Discussed in rounds. Starting insulin gtt.
All other assessments unchanged.
--- NOTE | 2023-09-26 12:34 | PN.CDI ---
CDI
- -
CDI:
Physician Documentation Request
Admit Date: 09/12/23 20:39
Dear Doctor Dior,
Please review the following and provide your response in the progress notes.
Clinical Indicators:
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
lactic acidosis...'
Pt had 2 more surgeries open laparotomies on 09/20 &09/22
Progress notes 09/21-09/25,' Ventilator dependent respiratory failure.'
Pt remains intubated
Please further specify the documented Ventilator Dependent respiratory failure :
Acute Hypoxic respiratory failure
Acute Hypercapnic respiratory failure
Other ( please Specify)
Additional information for Respiratory Failure:
Recognized criteria for Respiratory Failure (Source: [facility] Hospitalist Apr 2013)
ABGs: (1 or more) Symptoms Please indicate type if known
1. p)2 <60 or RA SPO2 <91% on RA 1. Tachypnea, SOB, dyspnea Hypoxic
2. pCO2 50 and pH <7.35 2. Use of accessory muscles Hypercapnic
3. pO2 decrease of pCO2 increase by 3. Pallor or cyanosis Hypoxic and Hypercapnic
10 mmHg from baseline if known 4. Anxiety or restlessness Unable to determine
5. Unable to speak in full sentences
Supplemental O2 of > 40% (5LPM) Intubation is not required
Use of terms such as suspected, likely, concern for, or probable (associated with a specific diagnosis that is being evaluated, monitored, or treated as if it exists) are acceptable and can be coded in the inpatient setting, when documented at the
time of discharge.
Thank you,
Lavern Narayan RN
CDI Specialist
[facility]
Please use your independent medical judgment in providing your response.
--- NOTE | 2023-09-26 12:34 | CM ---
CM following re: discharge planning.
Discussed in Rounds, reviewed pt's chart, met with pt. Pt's spouse, pt's daughter and pt's brother Francisco at bedside. Per Rounds meeting, weaning trial today and possible extubation tomorrow, continue supportive care.
It has come to my attention that pt's ex- mandated not to give pt's information to pt's brother Davy. CM discussed it with legal department. CM spoke to pt's ex- Mirian regarding her request, legal and ethical component of it and pt's
spouse expressed her understanding and she stated she will talk to her and pt's children.
Pt is awake today during weaning trial and pt responded YES by nodding his head to talk to his brother Davy regarding his condition and treatment.
PT and OT will evaluate the pt when clinically appropriate.
D/C plan: SNF vs acute rehab.
CM will follow with discharge plan updates as hospitalization progresses
--- NOTE | 2023-09-26 12:39 | W.PN.ID1 ---
Date of Service
Date of Service: September 26, 2023
Today's Communication
Continue antibiotics
Assessment / Plan
Fungal Peritonitis
Leukocytosis
-Likely steroid component.
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
Acute mesenteric ischemia
Resolving Shock Liver
Noncompliance
- murky fluid was noted in the abdomen in the OR, no perforations
- current cultures with C. albicans
- blood cultures x2 NGTD
- wound cx: c albicans
- continue meropenem, micafungin for today
- follow clinically
Case discussed with Vascular Surgery. Thrombectomy needed to be performed through prior graft, potentially exposing graft material to peritoneal contents. Patient may ultimately need chronic suppression.
Currently remains critically ill, VDRF and in intensive care unit.
Chief Complaint
-: Leukocytosis and Other (secondary peritonitis)
Subjective / Review of Systems
Patient seen and examined. Remains vent dependent at the present.
Vital Signs / Physical Exam
Vital Signs
Vital Signs
Temp Pulse Resp BP Pulse Ox
99.5 F 107 18 101/52 95
09/26/23 11:16 09/26/23 11:30 09/26/23 11:30 09/26/23 08:00 09/26/23 11:30
Physical Exam
Constitutional: Comfortable and Non-toxic
Eyes: Pupils Equal and Pupils Round
Cardiovascular: S1/S2; Negative S3/S4
Pulmonary: Negative Wheezes or Rales
Gastrointestinal: Soft, Non Distended, Decreased Bowel Sounds, No Rebound, No Guarding and Other (Ostomy in place.)
Skin: Negative Rash or Jaundice
Neurological: Other (Arousable to touch.)
Psychological: Calm
Objective Data
Lab Data
Lab Results
09/26/23 05:08
09/26/23 05:08
PT 17.8 Sec (11.4-14.6) H 09/13/23 03:17
INR 1.49 09/13/23 03:17
APTT 66.6 Sec (23.4-35.0) H 09/26/23 05:08
Estimated Creat Clear 120 ml/min 09/26/23 05:08
Lactic Acid 1.5 mmol/L (0.7-2.0) 09/21/23 17:38
Total Bilirubin 1.6 mg/dl (0.2-1.3) H 09/26/23 05:08
AST 50 U/L (17-59) 09/26/23 05:08
ALT 22 U/L (0-50) 09/26/23 05:08
Alkaline Phosphatase 84 U/L (38-126) 09/26/23 05:08
Most recent labs reviewed.
Micro Results:
09/23/23 16:45 Anaerobic Culture - Preliminary
Abdomen Culture pending. Anaerobic cultures are examined after 3
days incubation. Additional information to follow.
09/23/23 16:45 Body Fluid Culture - Preliminary
Fluid Sujatha albicans
Gram Stain - Preliminary
09/21/23 15:00 Anaerobic Culture - Preliminary
Peritoneal Fluid Culture pending. Anaerobic cultures are examined after 3
days incubation. Additional information to follow.
09/20/23 10:03 Blood Culture - Final
Blood/Venous No Growth - Final Report
09/20/23 10:11 Blood Culture - Final
Blood/Venous No Growth - Final Report
09/21/23 15:00 Wound Culture - Preliminary
Abdomen Sujatha albicans
Gram Stain - Preliminary
09/12/23 18:05 Blood Culture - Final
Blood/Venous No Growth - Final Report
09/12/23 18:05 Influenza Types A & B (ALAN) - Final
Nasal Swab Negative for Influenza A & B, NAAT
Negative results must be combined with clinical observations
and patient history.
Nucleic Acid Amplification test (NAAT)performed on the
[employer] NOW platform.
Imaging:
09/26/2023 CXR (portable): Persistent bibasilar atelectasis and pleural fluid. Little change from previous exams.
[2023-09-26 13:39] LABS: Glucose - Point of Care 235 mg/dl (70-99)
[2023-09-26 13:53] LABS: APTT 92.5 Sec (23.4-35.0)
[2023-09-26] MEDS: NOVOLIN R 100 UNITS IV (14:00)
[2023-09-26] MEDS: NOVOLIN R INSULIN INFUSION 100 IV (14:01)
--- NOTE | 2023-09-26 14:39 | WOUNDNOTE ---
[facility] RN note: Patient s/p ostomy surgery 09/22 POD 13 ex lap with SMA graft thrombectomy with patch angioplasty, complicated by worsening mesenteric ischemia and sepsis
POD 5 ex lap subtotal colectomy, left in discontinuity
POD 3 planned take back, creation of end ileostomy
See H&P for complete history. Patient sedated and ventilated. Ostomy is pink and budded, draining small amount of greenish drainage. Peristomal skin intact, with some ecchymosis that appears to be originating from midline incision. Ostomy changed
with
Igor pouch # [id number], barrier #[id number] and Eakins seal. Per chart review, plan is SNF. Will continue to follow with patient during in-patient stay. Ostomy supplies at bedside.
[2023-09-26 15:22] LABS: Glucose - Point of Care 216 mg/dl (70-99)
--- NOTE | 2023-09-26 16:00 | PTCARENOTE ---
Pt alert on vent. Nodding appropriately. Fentanyl gtt at 25 mcg/hr. General weakness
NSR to sinus tach. BP stable off pressors. Remains on heparin gtt.
Tolerating SBT. Lungs course. Scant secretions.
NGT to LIS, Ostomy changed by WOC. All dressing C/D/I.
TPN infusing. Insulin gtt started per glycemic protocol.
All other assessments unchanged.
[2023-09-26 16:16] LABS: Glucose - Point of Care 201 mg/dl (70-99)
[2023-09-26 17:44] LABS: Glucose - Point of Care 151 mg/dl (70-99)
[2023-09-26 18:40] LABS: Glucose - Point of Care 133 mg/dl (70-99)
[2023-09-26 19:55] LABS: Glucose - Point of Care 132 mg/dl (70-99)
--- NOTE | 2023-09-26 20:00 | PTCARENOTE ---
Resumed care of pt laying in bed intubated on ventilator. Daughter at bedside. PT opens eyes to voice, pt able to nod head appropriately and follow simple commands. pt reports 10/10 abd pain at this time. Pain medication administered as ordered, see
MAR. HR in the low 100's ST on the monitor. POX 96% with #[address] to 25 at left lip, on current vent settings AC 16, TV 500, FIO2 40%, Peep 5. Lungs course with scattered rhonchi. Occ prod cough. Oral care provided. Right nare NGT in place to
LIS. Absent bowel sounds. Right lower abd ilieostomy in place. B/L CHAY drain in place. Midline abd dressing intact. Thermister garcía cath in place draining jovani colored urine. Scrotal edema noted. +2 generalized anasarca present. Palpable peripheral
pulses present. Pale LE. Flushed face. Right dual picc in place infusing Insulin gtt per glycemic protocol, hep gtt, Fentanyl gtt, and TPN per MD order. Right EJ capped. B/L wrist restraints in place per pt safety. Pt repositioned per comfort. Will
continue to monitor.
[2023-09-26] MEDS: Parenteral Nutrition, Central 1440 IV (20:32)
[2023-09-26 20:51] LABS: Glucose - Point of Care 118 mg/dl (70-99)
[2023-09-26 21:28] LABS: APTT 70.4 Sec (23.4-35.0)
[2023-09-26 22:39] LABS: Glucose - Point of Care 133 mg/dl (70-99)
[2023-09-27] VITALS (7 sets, daily range): BP systolic 129–157; BP diastolic 71; BMI 25.9
--- NOTE | 2023-09-27 | PTCARENOTE ---
Pt sleeping intermittently. Pt able to nod head appropriately and help communicate needs. Pt repositioned per comfort. [place] provided per request. No other changes in assessment noted at this time. Will continue to monitor.
[2023-09-27 00:50] LABS: Glucose - Point of Care 119 mg/dl (70-99)
[2023-09-27 01:45] LABS: Glucose - Point of Care 118 mg/dl (70-99)
[2023-09-27 02:48] LABS: Glucose - Point of Care 113 mg/dl (70-99)
[2023-09-27] MEDS: NOVOLIN R INSULIN INFUSION 100 IV (03:26)
[2023-09-27] MEDS: MERREM 500 MG IV ×4 (03:27→20:59)
[2023-09-27] MEDS: STERILE WATER FOR INJECTION 10 ML IV ×4 (03:27→20:59)
[2023-09-27] MEDS: SOLU-MEDROL PF 40 MG IV ×3 (03:27→19:35)
[2023-09-27 03:44] LABS: Glucose - Point of Care 93 mg/dl (70-99)
[2023-09-27 03:49] LABS: B.E. 9.2 mmol/L; HCO3 32.5 mmol/L (21-28); PCO2 38 mmHg (35-48); PO2 88 mmHg (83-108); pH 7.54 (7.35-7.45)
[2023-09-27 04:02] LABS: % Basophils 0.3 % (0-2); % Immature Granulocytes 1.6 % (0-0.5); % Lymphocytes 7.9 % (20.5-51.1); % Monocytes 5.8 % (1.7-9.3); % Neutrophils 84.4 % (42.2-75.2); Absolute Basophils 0.1 10^3/uL (0-0.2); Absolute Immature Granulocytes 0.4 10^3/uL (0-0.05); Absolute Lymphocytes 2.1 10^3/uL (1.2-3.4); Absolute Monocytes 1.5 10^3/uL (0.1-0.6); Absolute Neutrophils 22.1 10^3/uL (1.4-6.5); Hematocrit 21.9 % (39.0-52.0); Hemoglobin 7.3 g/dL (13.0-18.0); Mean Corp Hgb Conc. 33.3 g/dL (33.0-37.0); Mean Corpuscular Hgb 29.2 pg (27.0-31.0); Mean Corpuscular Volume 87.6 fL (80.0-94.0); Mean Platelet Volume 12.6 fL (7.4-10.4); Nucleated Red Blood Cells % 0.7 % (-); Platelet Count 425 10^3/uL (130-400); Red Cell Dist. Width 15.9 % (11.5-14.5); White Blood Cell Count 26.2 10^3/uL (4.8-10.8)
[2023-09-27 04:04] LABS: APTT 108.5 Sec (23.4-35.0)
[2023-09-27 04:30] LABS: ALT (SGPT) 57 U/L (0-50); AST (SGOT) 109 U/L (17-59); Albumin 1.8 g/dl (3.5-5.0); Alkaline Phosphatase 116 U/L (38-126); Blood Urea Nitrogen 36 mg/dl (9-20); Calcium 7.8 mg/dl (8.4-10.2); Carbon Dioxide 32 mmol/L (22-30); Chloride 102 mmol/L (98-107); Estimated Creatinine Clearance 120 ml/min; Glucose 96 mg/dl (70-99); Potassium 3.7 mmol/L (3.5-5.1); Sodium 140 mmol/L (135-145); Total Bilirubin 1.3 mg/dl (0.2-1.3); Total Protein 4.5 g/dl (6.3-8.2); eGFR > 60.00
[2023-09-27 04:48] LABS: Glucose - Point of Care 107 mg/dl (70-99)
[2023-09-27] MEDS: KCL 270 MEQ IV (05:30)
[2023-09-27] MEDS: SUBLIMAZE 50 MCG IV ×3 (05:33→10:31)
[2023-09-27 05:47] LABS: Glucose - Point of Care 116 mg/dl (70-99)
[2023-09-27] MEDS: DUONEB 3 ML INH ×4 (07:32→19:55)
[2023-09-27] MEDS: PROTONIX IV 40 MG IV ×2 (07:35→19:34)
[2023-09-27] MEDS: ZITHROMAX 252.5 MG IV (07:35)
[2023-09-27] MEDS: LASIX 40 MG IV ×2 (07:35→15:23)
[2023-09-27] MEDS: NSS (PRESERVATIVE FREE) 10 ML IV ×2 (07:35→19:35)
[2023-09-27] MEDS: ASPIRIN 300 MG RECTAL (07:36)
[2023-09-27 07:37] LABS: Glucose - Point of Care 107 mg/dl (70-99)
--- NOTE | 2023-09-27 07:43 | W.PN.ID1 ---
Date of Service
Date of Service: September 27, 2023
Today's Communication
Continue antibiotics.
Assessment / Plan
Sujatha peritonitis
Leukocytosis
- Ongoing
- Likely steroid component.
Total SMA graft occlusion
- s/p thrombectomy (performed through prior graft) & patch repair
Acute mesenteric ischemia
Transaminitis
Hx medication noncompliance
Recommendations:
- murky fluid was noted in the abdomen in the OR, no perforations
- current cultures with C. albicans
- blood cultures : NGTD
- wound cx: c albicans
- continue meropenem (d#8), micafungin (d#8).
- follow clinically
Case discussed with Vascular Surgery. Thrombectomy needed to be performed through prior graft, potentially exposing graft material to peritoneal contents. Patient may ultimately need chronic suppression.
Currently remains critically ill, VDRF and in intensive care unit.
Chief Complaint
-: Leukocytosis and Other (secondary peritonitis)
Vital Signs / Physical Exam
Vital Signs
Vital Signs
Temp Pulse Resp BP Pulse Ox
98.7 F 86 22 139/61 91
09/27/23 04:03 09/27/23 07:35 09/27/23 05:00 09/27/23 07:35 09/27/23 05:00
Physical Exam
Constitutional: Comfortable, Acutely Ill and Non-toxic
Eyes: No Conjunctival Hemorrhage and Sclera Anicteric
Cardiovascular: S1/S2; Negative S3/S4
Pulmonary: Coarse, Non Labored and Other (ET tube in place.); Negative Wheezes or Rales
Gastrointestinal: Soft, Tender, Non Distended and Other (Ostomy in place. CHAY in place)
Extremities: Negative Edema, Cyanosis or Erythema
Skin: Negative Rash or Jaundice
Neurological: Awake and Alert
Psychological: Calm
Objective Data
Lab Data
Lab Results
09/27/23 03:44
09/27/23 03:44
PT 17.8 Sec (11.4-14.6) H 09/13/23 03:17
INR 1.49 09/13/23 03:17
APTT 108.5 Sec (23.4-35.0) H 09/27/23 03:44
Estimated Creat Clear 120 ml/min 09/27/23 03:44
Lactic Acid 1.5 mmol/L (0.7-2.0) 09/21/23 17:38
Total Bilirubin 1.3 mg/dl (0.2-1.3) 09/27/23 03:44
AST 109 U/L (17-59) H 09/27/23 03:44
ALT 57 U/L (0-50) H 09/27/23 03:44
Alkaline Phosphatase 116 U/L (38-126) 09/27/23 03:44
Most recent labs reviewed.
Micro Results:
09/21/23 15:00 Anaerobic Culture - Preliminary
Peritoneal Fluid Culture pending. Anaerobic cultures are examined after 3
days incubation. Additional information to follow.
09/23/23 16:45 Anaerobic Culture - Preliminary
Abdomen NO ANAEROBES ISOLATED
09/23/23 16:45 Body Fluid Culture - Preliminary
Fluid Sujatha albicans
Gram Stain - Preliminary
09/20/23 10:03 Blood Culture - Final
Blood/Venous No Growth - Final Report
09/20/23 10:11 Blood Culture - Final
Blood/Venous No Growth - Final Report
09/21/23 15:00 Wound Culture - Preliminary
Abdomen Sujatha albicans
Gram Stain - Preliminary
09/12/23 18:05 Blood Culture - Final
Blood/Venous No Growth - Final Report
09/12/23 18:05 Influenza Types A & B (ALAN) - Final
Nasal Swab Negative for Influenza A & B, NAAT
Negative results must be combined with clinical observations
and patient history.
Nucleic Acid Amplification test (NAAT)performed on the
[employer] NOW platform.
Imaging:
09/26/2023 CXR (portable): Persistent bibasilar atelectasis and pleural fluid. Little change from previous exams.
[2023-09-27] MEDS: HEPARIN 25000 UNITS/250 ML IV ×2 (08:25→21:00)
--- NOTE | 2023-09-27 08:36 | W.PN.INTV ---
Today's Communication / Plan
Recommendations
Continue mechanical ventilation with daily SAT/SBT --> continue to diurese and plan to extubate today
Continue heparin gtt and trend H/H
Transfuse as needed to keep Hb >7, plt>50 K
Abx as per ID
Continue solumedrol with azithromycin + DuoNebs for suspected COPD exacerbation --> wean down solumedrol today to 40mg IV q12hr
Pain control
TPN as per surgery; eventually tube feeds once ileostomy is functional
Assessment
-
58-year-old man with past medical history noted, admitted to the emergency room with abdominal pain. Found to have bowel ischemia due to occlusion of prior aortic mesenteric bypass. Apparently patient stopped taking Plavix and statin since January
2022. Only on aspirin, emergently taken to the operating room. Transferred to the critical care unit, we were consulted for critical care management.
Impression:
- Ventilator dependent respiratory failure --> planning to extubate today
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
- Status post exploratory laparotomy, lysis of adhesions, aortomesenteric bypass nick thrombectomy, mesenteric arteriogram, patch angioplasty of aortomesenteric bypass graft (OR date: 09-13-2023)
- Ischemic bowel c/b necrosis s/p ex-lap with subtotal colectomy with splenic flexure takedown and distal 70cm of TI also removed (OR date: 09/21/2023)
- Second look laparotomy with end-ileostomy creation (OR date: 09/23/2023)
- GI bleed - GI bleed was likely due to ischemic colitis
- Anemia due to acute blood loss
- Leukocytosis due to mesenteric ischemia
- Hyponatremia due to SIADH (acute on chronic - baseline Na approx 131-134) - SIADH is likely due to recent surgery
- Hyperglycemia
- Lactic acidosis - resolved
- Left flank ecchymosis
- Wheezing - resolved
- Bilateral pleural effusions left greater than right
Conditions present prior admission:
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
graft bypass into the celiac and SMA vessels.
Tobacco abuse
PFT's 06-19-21 with moderate airflow obstruction with some reversibility postbronchodilator on spirometry.-Not on bronchodilators
Moderate COPD/emphysema-not seen by pulmonary in the outpatient office for
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
History of left gastric anemic DVT status post apixaban 03/2021 post left knee surgery
History lumbar vasectomy
Chronic back pain-recent steroid taper
Plan
Patient has markedly improved, is tolerating a pressure support trial and we plan to extubate today
Maintain SpO2 >88%, keep plateau pressure <30 and daily SAT/SBT as clinically appropriate
Patient went back to the OR for laparotomy on 09/22 showing viable remaining small bowel with excellent Doppler signals, and an end-ileostomy was inserted.
Underwent colorectal surgery on 09/20 with necrotic/perforated transverse colon seen and ischemic bowel including the right colon, 70 cm of the terminal ileum and the left colon and the proximal jejunum was also becoming possibly ischemic towards the
end of the procedure. The bowel was left in discontinuity and was divided with 1 firing of the contour stapler. The left colon was resected with the proximal end left open.
Continue TPN in meantime and I discussed starting AC with vascular surgery and colorectal, and considering his recent GI bleed, we started chemical DVT ppx on 09/21; heparin gtt being re-started on 09/22
Until patient extubated: Continue mechanical ventilation with daily SAT/SBT, titrating FiO2 and PEEP to keep SpO2 >90-94% and keep PIP<30, plataeu pressure <30
VAP precautions
Nebulizers as needed-intermittently with wheezing-currently resolved
Considering the pt has COPD and on 09/24 had thick thick, choe secretions from ETT with multiple recent surgeries and now on ventilator for few days, I started solu-medrol 40mg IV q8r. Wean this today to 40mg IV q12hr. His ETT secretions have
already improved dramatically. Given his hyperglycemia I started q6hr aspart to keep BG at goal 140-180 in addition to the lantus - however he still remained hyperglycemic and insulin gtt was started on 09/25 (critically ill insulin order set). We
will wean off insulin drip as his blood sugars improved. Continue azithro for anti-inflammatory effect and continue DuoNebs QID
Postoperative management as per colorectal/general surgery and vascular surgery -correspondence reviewed and recommendations are appreciated
POD#14 exploratory laparotomy, lysis of adhesions, aortomesenteric bypass nick thrombectomy, mesenteric arteriogram, patch angioplasty of aortomesenteric bypass
POD#6 subtotal colectomy
Antibiotics per surgery-was on Zosyn-changed to meropenem (started on 09-19 in addition to micafungin and IV vancomycin - IV vanco stopped on 09/23)
Follow cultures - Sujatha albicans seen on peritoneal culture from OR on 09-20-2023 + 09/23/2023
Infectious disease consultation noted-correspondence reviewed
NGT to remain to suction even after extubation
Once ileostomy is functional then will start tube feeds - defer to colorectal for this decision
Pain management
Maintain MAP>65
Monitor hemoglobin
Transfuse as needed to keep Hb>7, plt>50k
GI evaluation-correspondence reviewed-no acute GI intervention recommended at this point
Continue PPI 40mg IV BID
Monitor renal function
Replace electrolytes as needed
Previously noted to have some hypoglycemia
Dextrose if needed
Continue TPN per surgery
Trend serum Na
Monitor liver functions
Smoking cessation counseling ongoing - not currently relevant; we can address this if pt is extubated
DVT prophylaxis- heparin gtt
Nutrition per surgery and vascular surgery
Note: Dr. Raman reviewed with ex- at the bedside with patient's permission-reviewed case 09/20/2023
Critical care statement: A total of 38 minutes of critical care time was provided for this patient today. This includes management of unstable vital signs, evaluation of the patient at bedside, reviewing the patient's pertinent medical records
including radiographs, transfusion management, pressor management, microbiology, laboratory evaluations, and discussion with primary team, consultants, pharmacy, nutrition, physical therapy, case management, charge nurse, critical care nursing, and
respiratory therapy.
Data:
CXR 09-21-2023: Endotracheal tube has been inserted with tip 2.3 cm above the yue.
CXR 09-23-2023: Bibasilar opacification most likely representing subsegmental atelectasis, left greater than right.
CXR 09-24-2023: Endotracheal tube is present with its tip 5.3 cm above the yue; Evidence for bilateral pleural effusions, probably small to moderate. Adjacent parenchymal opacity within the lower lungs, most likely representing atelectasis. Small
subtle opacity in the lateral aspect of the right upper lung stable dating back to June 25, 2021, likely a small focus of scarring. Stability is reassuring that this is benign.
CXR 09-25-2023: Bibasilar opacification without significant change.
CXR 09-26-2023: Persistent bibasilar atelectasis and pleural fluid, minimal improvement in aeration compared to previous exams.
CXR 09-27-2023: Endotracheal tube and nasogastric tube remain in place, unchanged. Also unchanged is a right PICC line catheter. Stable cardiomediastinal margins. No congestive heart failure. As before, there is hazy opacity at the lung bases,
which appears stable. The mid to upper lung zones are clear. No pneumothorax.
CTA Abd/Pelvis with/without IV contrast 09-19-2023:
Markedly abnormal examination. No definite findings to suggest an acute retroperitoneal hemorrhage, however there is an increase in free fluid throughout the abdomen and pelvis.
There are small collections of intermediate density throughout the mesentery, concerning for small mesenteric hematomas.
Increased bilateral pleural effusions left greater than right and increased bibasilar consolidation.
As previously noted there is small bowel and large bowel wall thickening. Concerning for ischemia particularly in the transverse colon with increased stranding and inflammatory appearance.
Persistent free air and free fluid, concerning for an occult perforation, no definite site identified.
Celiac axis/SMA bypass graft similar to previous exam.
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 Chavez at 4:00 PM.
Left transversus abdominis intramuscular hematoma. Slightly increased compared to previous exam. Increased bilateral flank edema. Left greater than right. Consistent with the clinical concern for increased bruising.
CTA Abd/Pelvis with/without contrast 09-14-2023:�
Moderate small bowel wall and large bowel wall thickening as described above. Ischemia cannot be excluded.
Free air and free fluid in the abdomen and pelvis likely postsurgical change - new
Celiac axis/SMA bypass graft.
Moderate bibasilar consolidation - new
Chavez catheter present - new
Mild prostate hypertrophy - stable
CTA Abd/Pelvis with/without contrast 09-12-2023:
1. Complete occlusion of the celiac/SMA bypass graft as described.
2. Mild bilateral lower lobe infectious/inflammatory bronchiolitis change.
3. Mild T12 and L4 superior endplate compression deformities, new from 01/20/2023 and age indeterminate. Recommend correlation for any point tenderness in these regions.
Subjective Dataa
Subjective Data
Date of Service:
Date of Service: September 27, 2023
Chief Complaint: Mule Spinner Follow Up (Status post aortomesenteric bypass occlusion.)
Subjective:
Patient seen and evaluated this morning. Intubated and on pressure support 5/5 on 40% FiO2. He is following commands, able to lift his head up off the pillow. He is on insulin drip at 0.8 units/h. BP 142/57, heart rate 97 and saturating 96%. He
has some abdominal discomfort but currently denies chest pain, shortness of breath, fevers or chills. He is net negative 280 cc last 24 hours.
Review of Systems
General: Other (Negative unless mentioned above)
Objective Data
Data Reviewed
Vital Signs / I&O / Oxygen:
Vital Signs
Temp Pulse Resp BP Pulse Ox
98.6 F 95 17 139/61 97
09/27/23 11:54 09/27/23 13:00 09/27/23 13:00 09/27/23 07:35 09/27/23 13:00
Intake and Output
09/26/23 09/27/23 09/28/23
06:59 06:59 06:59
Intake Total 2842.8 / 2947.9 2693.6 / 2786.6 1020.6 / 1020.6
Output Total 4485 / 4485 2975 / 2975 1255 / 1255
Balance -1642.2 / -1537.1 -281.4 / -188.4 -234.4 / -234.4
SaO2 [CPAP] 97
SaO2 [A/C] 95
SaO2 97
Nasal Cannula flow liters per 2
minute
Physical Exam
General: Respiratory Distress (n), Comfortable and Other (intubated and in NAD)
HEENT: Normocephalic and Anicteric
Cardiovascular: S1-S2, Peripheral Edema (Negative) and Other (Left radial arterial catheter in place)
Respiratory: Wheeze (negative), Crackles (negative), Rhonchi (n), Non-Labored Respirations, Accessory Resp Muscle Use (n), Stridor (n), ET Tube and Other (Mechanical breath sounds heard bilaterally; coarse BS b/l)
GI: Soft, Distended, Non Tender and Other (Midline bandages without active bleeding)
Neurology: Awake, Alert and Tremors (negative)
Skin: Warm, Dry, Cyanosis (n) and Jaundice (n)
Labs/Micro/Reports
Lab Data
09/27/23 03:44
09/27/23 03:44
Laboratory Results
09/26/23 09/26/23 09/27/23
13: 21:02 03:44
APTT 92.5 H 70.4 H 108.5 H
pH 7.54 H
pCO2 38
pO2 88
HCO3 32.5 H
O2 Delivery Level
09/27/23 09/27/23
10:08 11:51
APTT 150.9 H*
pH 7.48 H
pCO2 43
pO2 87
HCO3 32.0 H
O2 Delivery Level
Microbiology
09/23/23 16:45 Fluid Body Fluid Culture - Preliminary
Sujatha albicans
09/23/23 16:45 Fluid Gram Stain - Preliminary
09/21/23 15:00 Abdomen Wound Culture - Final
Sujatha albicans
09/21/23 15:00 Abdomen Gram Stain - Final
09/21/23 15:00 Peritoneal Fluid Anaerobic Culture - Final
NO ANAEROBES ISOLATED
09/23/23 16:45 Abdomen Anaerobic Culture - Preliminary
NO ANAEROBES ISOLATED
09/20/23 10:03 Blood/Venous Blood Culture - Final
No Growth - Final Report
09/20/23 10:11 Blood/Venous Blood Culture - Final
No Growth - Final Report
--- NOTE | 2023-09-27 08:36 | PTCARENOTE ---
report received, assessments per work list. patient awake, follows commands. restraints maintained for patient safety. ngt to LIS, draining thick brown fluid. abdominal dressings in place, CHAY to bulb suction. ileostomy stoma pink, no output, abdomen
round. rare bowel sounds noted. Chavez draining yellow urine. +3 generalized anasarca. increased scrotal edema. ett to vent, lung with coarse rhonchi bilaterally, suctions for large amount thick white choe sputum. call antonio in reach. heparin, glycemic
protocol per orders
[2023-09-27 09:40] LABS: Glucose - Point of Care 118 mg/dl (70-99)
[2023-09-27] MEDS: MYCAMINE 105 MG IV (09:57)
--- NOTE | 2023-09-27 10:28 | RESPNOTE ---
ETT caban changed out with RN. ETT re-positioned to LEFT of patient's mouth, 8.0 @25.
[2023-09-27 10:38] LABS: APTT 150.9 Sec (23.4-35.0)
--- NOTE | 2023-09-27 11:00 | PTCARENOTE ---
placed on cpap wean, patient with discomfort, fentanyl per aug. ett suctions for large amounts. ptt sent. heparin on hold per ordersX1 hour
[2023-09-27] MEDS: FLEXBUMIN 100 IV ×3 (11:31→18:45)
[2023-09-27 11:41] LABS: Glucose - Point of Care 94 mg/dl (70-99)
[2023-09-27 11:58] LABS: B.E. 7.8 mmol/L; O2 Saturation % 99.1 % (94-98); PCO2 43 mmHg (35-48); PO2 87 mmHg (83-108); pH 7.48 (7.35-7.45)
--- NOTE | 2023-09-27 12:56 | PTCARENOTE ---
patient extubated to 40% aerosol face mask. voice hoarse. abdominal dressings changed. small amount drainage noted on lower aspect of incision. christin intact. lungs coarse, diminished. coughing and deep breathing instructed
--- NOTE | 2023-09-27 13:19 | W.PN.HOSP.TC ---
Today's Communication/Plan
-
monitor O2 after extubation
continue IV heparin
continue IV Abx
Assessment / Plan
Assessment / Plan
Assessment:
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
- s/p Exploratory laparotomy, lysis of adhesions, aorto-mesenteric bypass [place] thrombectomy, mesenteric arteriogram, patch angioplasty of aorto-mesenteric bypass 09/12
- Vascular following
- CT-A 09/13 showing patient bypass, concern for bowel ischemia (see below)
Ischemic bowel c/b necrotic bowel
- CRS managing
- s/p ex-lap 09/20: Necrotic and perforated entire transverse colon, ischemic right colon and terminal ileum, ischemic left colon, ? ischemia of the proximal jejunum. 70 cm terminal colon with entire right colon, transverse colon and descending colon
removed.
- s/p 2nd look ex-lap 09/22 with Murky fluid throughout the abdomen, viable remaining small intestine with excellent Doppler signals, Haily ileostomy
- continue IV Heparin with PTT protocol
- ID following for suspected secondary peritonitis. Continue Meropenem, Micafungin. May need chronic suppression.
- Hematology input about thrombophilia assessments noted - transition into DOAC once off of IV heparin and follow with office for work up.
Ventilator dependent respiratory failure/acute hypoxic respiratory failure
- extubated 09/26 - monitor O2 needs
Post-op shock - multifactorial from sepsis/blood loss
- pressors weaned 09/26
- Echo normal EF
GI bleed related to ischemic colitis
Acute blood loss anemia
- monitor Hb
- consider transfusion
- continue PPI
Hyponatremia due to SIADH (acute on chronic - baseline Na approx 131-134) - SIADH is likely due to recent surgery, also component of volume overload
- BNP only mildly elevated but patient up at least 20-25 pounds
- Echo normal
- IV Lasix BID continues
Left flank ecchymosis
Bilateral pleural effusions left greater than right
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
CAD s/p prior hx of NSTEMI - asymptomatic without chest pain. On aspirin at home.
Hyperbilirubinemia- mostly indirect elevation, possible Gilbert's + hematomas related. Continue to follow.
Hypocalcemia - replete
Hx of DVT status post apixaban 03/2021 post left knee surgery
Chronic back pain - recent steroid taper. Continued mid back pain which is a equally troubling. No sciatica . plain xrays show loss of height of superior endplate t12,l4 . Pt had pull while lifting something at home but no fall or trauma. continue
symptomatic tx
Hyperglycemia
No hx of DM
- HbA1C 5.8
Tobacco abuse - remains actively smoking. Cessation recommended.
Nutrition - resumed TPN. Hypoalbuminemia severe noted.
DVT ppx: IV Heparin
Code: Full
Total Critical Care Time 40 minutes. I was immediately available to the patient and staff. I personally examined, reviewed labs, diagnostic images/reports, interpretations, treatment plans, discussed patient care with other providers and family
or caregivers (if patient is unable to make decisions), entered orders as appropriate and documented the medical record.
Anticipated Discharge: > 48 hours
Subjective/Interval History
-
Date of Service: September 27, 2023
off pressors
extubated to mass
following commands
no stoma activity yet
Objective Data
-
Labs:
Laboratory Results
09/27/23 09/27/23 09/27/23
03:44 10:08 11:51
WBC 26.2 H
Hgb 7.3 L
Hct 21.9 L
Plt Count 425 H D
APTT 108.5 H 150.9 H*
HCO3 32.5 H 32.0 H
Sodium 140
Potassium 3.7
Chloride 102
Carbon Dioxide 32 H
BUN 36 H
Creatinine 0.7
Glucose 96
Calcium 7.8 L
Total Bilirubin 1.3
AST 109 H
ALT 57 H
Alkaline Phosphatase 116
09/27/23
17:45
WBC
Hgb
Hct
Plt Count
APTT Pending
HCO3
Sodium
Potassium
Chloride
Carbon Dioxide
BUN
Creatinine
Glucose
Calcium
Total Bilirubin
AST
ALT
Alkaline Phosphatase
Vital Signs:
Vital Signs
Temp Pulse Resp BP Pulse Ox
98.6 F 95 17 139/61 97
09/27/23 11:54 09/27/23 13:00 09/27/23 13:00 09/27/23 07:35 09/27/23 13:00
I&O
09/26/23 09/27/23 09/28/23
06:59 06:59 06:59
Intake Total 2842.8 / 2947.9 2693.6 / 2786.6 1020.6 / 1020.6
Output Total 4485 / 4485 2975 / 2975 1255 / 1255
Balance -1642.2 / -1537.1 -281.4 / -188.4 -234.4 / -234.4
Physical Exam
-
General: No Apparent Distress
HEENT: Normocephalic and Atraumatic
Respiratory: Negative Wheezes
Cardiac: Regular Rhythm
GI: Soft
Neuro: AO x 3
Psych: Calm
Data Reviewed
-
Critical Care Time (in minutes): 40
Labs: Labs Reviewed by me
--- NOTE | 2023-09-27 13:20 | PTCARENOTE ---
Addendum entered by Leeanne Lewis RN 09/27/23 13:33:
h. patient continues to be confused, [place] 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 glycemic per Protocel
Original Note:
patient slept for short period, family at bedside, when awakened patient confused to place, 'I'm on an airplane'. oriented to month and year, recognizes family. reoriented
[2023-09-27 13:40] LABS: Glucose - Point of Care 109 mg/dl (70-99)
--- NOTE | 2023-09-27 14:10 | W.PN.CRS1 ---
Addendum entered and electronically signed by Esteban Ward MD 09/28/23 13:39:
Delayed entry from 09/27/23
I saw and examined the patient.
The Oncology Nurse's note was reviewed and I agree with the note.
Comment: Remains intubated, but awake and alert, responsive; minimal stoma sweat, otherwise stoma is PPV. Cont NPO/TPN, wean vent.
Original Note:
Today's Communication / Plan
-
TPN renewed
Assessment/Plan
-
58-year-old male who presented with SMA thrombus/occlusion
POD #14 ex lap with SMA graft thrombectomy with patch angioplasty, complicated by worsening mesenteric ischemia and sepsis
POD #6 ex lap subtotal colectomy, left in discontinuity
POD #4 planned take back, creation of end ileostomy
Off pressors, extubation today. VSS. Overall improving
NGT with bilious outputs, minimal bowel sweat in stoma
R CHAY with serous fluid, L CHAY with brown/miguel drainage (likely old blood)
H/H stable. WBC trending up
--Renewed TPN, plan to advance diet once bowel function returning
--Continue drains
--ICU care/medical care as per primary team
--Continue heparin gtt
--ABX as per ID
--Wound/stoma rn following. Dry gauze dressings to incision
Subjective Data
Procedure
09/21/2023- Exploratory laparotomy, subtotal colectomy (takedown of splenic flexure)
09/23/2023- 2nd look laparotomy and ileostomy (reopening of recent laparotomy)
Subjective Data
Date of Service: September 27, 2023
Patient seen and examined at bedside with Dr. Ward around 0950 this am. Family at bedside, undergoing vent weaning. Relatively comfortable otherwise.
Objective Data
-
Vital Signs
Temp Pulse Resp BP Pulse Ox
98.6 F 95 17 139/61 97
09/27/23 11:54 09/27/23 13:00 09/27/23 13:00 09/27/23 07:35 09/27/23 13:00
Intake & Output
09/26/23 09/27/23 09/28/23
06:59 06:59 06:59
Intake Total 2842.8 / 2947.9 2693.6 / 2786.6 1020.6 / 1020.6
Output Total 4485 / 4485 2975 / 2975 1255 / 1255
Balance -1642.2 / -1537.1 -281.4 / -188.4 -234.4 / -234.4
Intake:
IV fluids (Total) 1022.8 / 1067.9 783.6 / 816.6 150.6 / 150.6
Heparin 456 / 477 564 / 587 111 / 111
Insulin 54.3 / 59.3 19.6 / 19.6
Vasopressin gtt 81 / 81
double conc levophed 37.6 / 37.6
fentanyl 240 / 250 118.0 / 123.0 20 / 20
levophed 13.4 / 13.4
propofol 208.2 / 218.5 33.9 / 33.9
IV piggybacks 200 / 200 270 / 270 350 / 350
TPN/PPN 1440 / 1500 1560 / 1620 360 / 360
Amount instilled into GI Tube ( 180 / 180 80 / 80 60 / 60
Total)
[place] Sump 180 / 180 80 / 80 60 / 60
Blood Products 100 / 100
Albumin 25% 100 / 100
Output:
Liquid stool amount 325 / 325
Ileostomy 325 / 325
Drain Output (Total) 430 / 430 275 / 275 30 / 30
Left Filiberto-Roche B 250 / 250 175 / 175 30 / 30
Right Filiberto-Roche A 180 / 180 100 / 100
Gastrointestinal tube output ( 400 / 400 600 / 600
Total)
[place] Sump 400 / 400 600 / 600
Urine, Chavez 3330 / 3330 2100 / 2100 1225 / 1225
Lab Results
09/27/23 03:44
09/27/23 03:44
Physical Exam
-
General: No Acute Distress
HEENT: Grossly Normal
Abdomen: Soft, Distended (minimal), TPN Ordered and Other (stoma pink/viable, minimal bowel sweat in appliance. NGT with bilious outputs)
Skin: Warm
Wound: Signs of Infection (christin intact, well approximated) and Other (R CHAY with serous fluid, L CHAY with old bloody drainage)
[2023-09-27] MEDS: DILAUDID 0.5 MG IV ×2 (15:22→19:35)
[2023-09-27 15:47] LABS: Glucose - Point of Care 127 mg/dl (70-99)
--- NOTE | 2023-09-27 16:01 | PTCARENOTE ---
patient reassessed. remains confused to place at times. able to state the month and year. slow speech, slow to answer, but is appropriate in his responses. flat affect. c/o abdominal pain, medicated with dilaudid per prn order. lungs with diminished
breath sounds, diuresing post lasix. labs sent. 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
[2023-09-27 17:40] LABS: Glucose - Point of Care 91 mg/dl (70-99)
[2023-09-27 18:02] LABS: APTT 118.1 Sec (23.4-35.0)
--- NOTE | 2023-09-27 18:18 | PTCARENOTE ---
small amount black green stool from ileostomy. heme test negative. heparin/insulin adjustments per orders. patient remains confused at times, though now states he is in '[facility]'.
[2023-09-27 19:43] LABS: Glucose - Point of Care 130 mg/dl (70-99)
--- NOTE | 2023-09-27 20:00 | PTCARENOTE ---
Received pt. at 1900. Pt. currently in bed. Drowsy but arousable. Oriented to self. Forgetful. Weak in extremities. Afebrile. Heart rhythm sinus. Currently on 4L nasal cannula. Lungs sound diminished. Pt. currently NPO. Receiving TPN via PICC line.
Ileostomy draining without issue. Chavez catheter in place. Skin as documented. Discussed plan of care with patient. Vital signs stable at this time.
[2023-09-27] MEDS: Parenteral Nutrition, Central 1440 IV (20:39)
[2023-09-27 21:41] LABS: Glucose - Point of Care 105 mg/dl (70-99)
--- NOTE | 2023-09-27 22:30 | PTCARENOTE ---
Pt. pulled put NG tube. [employer] notified. Restraints ordered and applied to prevent patient from pulling out other catheters/tubes. Upon attempt to put in new NG tube, pt. became aggressive and combative. Currently refusing NG tube, screaming for
help. [employer] notified. Will hold off on placing NG tube at this time.
[2023-09-27 23:41] LABS: Glucose - Point of Care 73 mg/dl (70-99)
--- NOTE | 2023-09-28 00:08 | PTCARENOTE ---
Pt. remains on heparin gtt. Will redraw PTT per protocol. Insulin gtt infusing per Glycemic Protocol. Vital signs stable at this time.
[2023-09-28 00:34] LABS: Glucose - Point of Care 98 mg/dl (70-99)
[2023-09-28] MEDS: PRECEDEX 100 IV ×2 (01:16→19:43)
[2023-09-28] MEDS: DILAUDID 1 MG IV ×2 (01:33→11:10)
[2023-09-28 01:43] LABS: Glucose - Point of Care 140 mg/dl (70-99)
[2023-09-28 03:10] LABS: Glucose - Point of Care 139 mg/dl (70-99)
[2023-09-28] MEDS: STERILE WATER FOR INJECTION 10 ML IV ×4 (03:23→21:38)
[2023-09-28] MEDS: MERREM 500 MG IV ×4 (03:23→21:37)
[2023-09-28 03:38] LABS: Glucose - Point of Care 104 mg/dl (70-99)
--- NOTE | 2023-09-28 04:00 | PTCARENOTE ---
Pt. increasingly agitated and paranoid overnight. Screaming in room. Precedex gtt started at 01:16 am. Pt. more calm now, able to sleep. Restraints remain in place. AM labs drawn. Vital signs stable at this time.
[2023-09-28 04:07] LABS: % Basophils 0.3 % (0-2); % Eosinophils 0.3 % (0-6); % Immature Granulocytes 3.2 % (0-0.5); % Lymphocytes 7.7 % (20.5-51.1); % Neutrophils 82.5 % (42.2-75.2); Absolute Basophils 0.1 10^3/uL (0-0.2); Absolute Eosinophils 0.1 10^3/uL (0-0.7); Absolute Immature Granulocytes 0.7 10^3/uL (0-0.05); Absolute Lymphocytes 1.6 10^3/uL (1.2-3.4); Absolute Monocytes 1.3 10^3/uL (0.1-0.6); Absolute Neutrophils 17.1 10^3/uL (1.4-6.5); Mean Corp Hgb Conc. 32.5 g/dL (33.0-37.0); Mean Corpuscular Hgb 29.9 pg (27.0-31.0); Mean Platelet Volume 12.9 fL (7.4-10.4); Nucleated Red Blood Cells % 0.4 % (-); Platelet Count 366 10^3/uL (130-400); Red Blood Cell Count 2.24 10^6/uL (4.70-6.10); Red Cell Dist. Width 15.9 % (11.5-14.5); White Blood Cell Count 20.8 10^3/uL (4.8-10.8)
[2023-09-28 04:10] LABS: Hematocrit 20.6 % (39.0-52.0); Hemoglobin 6.7 g/dL (13.0-18.0)
[2023-09-28 04:27] LABS: ALT (SGPT) 217 U/L (0-50); AST (SGOT) 256 U/L (17-59); Albumin 2.4 g/dl (3.5-5.0); Alkaline Phosphatase 161 U/L (38-126); Blood Urea Nitrogen 42 mg/dl (9-20); Calcium 8.2 mg/dl (8.4-10.2); Carbon Dioxide 31 mmol/L (22-30); Chloride 109 mmol/L (98-107); Estimated Creatinine Clearance 120 ml/min; Glucose 100 mg/dl (70-99); Magnesium 2.7 mg/dl (1.6-2.3); Potassium 3.9 mmol/L (3.5-5.1); Sodium 142 mmol/L (135-145); Total Bilirubin 1.8 mg/dl (0.2-1.3); Total Protein 4.9 g/dl (6.3-8.2); eGFR > 60.00
[2023-09-28 04:38] LABS: Glucose - Point of Care 99 mg/dl (70-99)
[2023-09-28 06:00] VITALS: BMI 25.7
[2023-09-28 06:39] LABS: Glucose - Point of Care 123 mg/dl (70-99)
[2023-09-28 07:25] LABS: APTT 146.6 Sec (23.4-35.0)
[2023-09-28] MEDS: DUONEB 3 ML INH ×4 (07:31→19:57)
--- NOTE | 2023-09-28 08:00 | PTCARENOTE ---
Assumed care of patient. Pt rec'd awake but confused to place and time. Follows simple commands. Currently restrained...will trial out of restraints. BOB's but weak. S1 S2 reg w/ NSR on monitor. Weak PP. +3-4 generalized edema. Knee hi
SCD's on. Heels elevated on pillows. On 2L N/C...sats 92%. Lungs diminished....scattered exp wheezing noted. Encouraged to cough and deep breath. IS done...500-750mls. Weak cough. Abdomen round...+BS. No NGT (pt removed previous evening).
RLQ ileostomy draining liquid greenish brown. Bilateral CHAY's...right CHAY draining sero-sang....left CHAY draining dark red....both dressings dry and intact. Midline abdominal dressing intact. Sacrum intact. Right DL PICC w/ heparin gtt and TPN
infusing. (R)EJ w/ insulin gtt infusing. PRBC x 1 ordered for hgb 6.7....will transfuse. Left radial colin...zeroed and flushed. VS documented. Will continue to monitor closely.
--- NOTE | 2023-09-28 08:26 | W.PN.ID1 ---
Date of Service
Date of Service: September 28, 2023
Today's Communication
Continue antibiotics per
Assessment / Plan
Sujatha peritonitis
Leukocytosis
- Ongoing but slightly improved today.
- Likely steroid component.
Total SMA graft occlusion
- s/p thrombectomy (performed through prior graft) & patch repair
Acute mesenteric ischemia
Transaminitis
Hx medication noncompliance
Recommendations:
- murky fluid was noted in the abdomen in the OR, though no perforations noted.
- current cultures with C. albicans
- blood cultures : NGTD
- wound cx: c albicans
- continue meropenem (d#9), micafungin (d#9).
- follow clinically
Case previously discussed with Vascular Surgery. Thrombectomy needed to be performed through prior graft, potentially exposing graft material to peritoneal contents. Patient may ultimately need chronic suppression.
����������������������������������������������������������
Chief Complaint
-: Leukocytosis and Other (secondary peritonitis)
Vital Signs / Physical Exam
Vital Signs
Vital Signs
Temp Pulse Resp BP Pulse Ox
96.9 F L 67 16 129/71 95
09/28/23 07:44 09/28/23 07:33 09/28/23 07:33 09/27/23 16:04 09/28/23 07:33
Physical Exam
Physical Exam:
Constitutional: Comfortable, Acutely Ill and Non-toxic
Eyes: No Conjunctival Hemorrhage and Sclera Anicteric
Cardiovascular: S1/S2; Negative S3/S4
Pulmonary: Coarse, Non Labored. Now extubated. Negative Wheezes or Rales
Gastrointestinal: Soft, Tender, Non Distended and Other (Ostomy in place. JPs in place)
Extremities: Negative Cyanosis or Erythema
Skin: Negative Rash or Jaundice
Neurological: Awake and Alert
Psychological: Calm
Objective Data
Lab Data
Lab Results
09/28/23 03:33
09/28/23 03:33
PT 17.8 Sec (11.4-14.6) H 09/13/23 03:17
INR 1.49 09/13/23 03:17
APTT 146.6 Sec (23.4-35.0) H 09/28/23 06:29
Estimated Creat Clear 120 ml/min 09/28/23 03:33
Lactic Acid 1.5 mmol/L (0.7-2.0) 09/21/23 17:38
Total Bilirubin 1.8 mg/dl (0.2-1.3) H 09/28/23 03:33
AST 256 U/L (17-59) H 09/28/23 03:33
ALT 217 U/L (0-50) H 09/28/23 03:33
Alkaline Phosphatase 161 U/L (38-126) H 09/28/23 03:33
Most recent labs reviewed.
Micro Results:
09/23/23 16:45 Body Fluid Culture - Preliminary
Fluid Sujatha albicans
Gram Stain - Preliminary
09/21/23 15:00 Wound Culture - Final
Abdomen Sujatha albicans
Gram Stain - Final
09/21/23 15:00 Anaerobic Culture - Final
Peritoneal Fluid NO ANAEROBES ISOLATED
09/23/23 16:45 Anaerobic Culture - Preliminary
Abdomen NO ANAEROBES ISOLATED
09/20/23 10:03 Blood Culture - Final
Blood/Venous No Growth - Final Report
09/20/23 10:11 Blood Culture - Final
Blood/Venous No Growth - Final Report
09/12/23 18:05 Blood Culture - Final
Blood/Venous No Growth - Final Report
09/12/23 18:05 Influenza Types A & B (ALAN) - Final
Nasal Swab Negative for Influenza A & B, NAAT
Negative results must be combined with clinical observations
and patient history.
Nucleic Acid Amplification test (NAAT)performed on the
[employer] NOW platform.
Imaging:
09/26/2023 CXR (portable): Persistent bibasilar atelectasis and pleural fluid. Little change from previous exams.
[2023-09-28 08:30] VITALS: BP 165/64
[2023-09-28] MEDS: NSS (PRESERVATIVE FREE) 10 ML IV ×2 (08:33→20:08)
[2023-09-28] MEDS: PROTONIX IV 40 MG IV ×2 (08:33→20:08)
[2023-09-28] MEDS: SOLU-MEDROL PF 40 MG IV ×2 (08:35→20:08)
[2023-09-28] MEDS: LASIX 40 MG IV ×2 (08:37→15:37)
[2023-09-28] MEDS: ASPIRIN 300 MG RECTAL (08:37)
--- NOTE | 2023-09-28 08:39 | W.PN.INTV ---
Today's Communication / Plan
Recommendations
Continue to wean down supplemental oxygen to maintain SpO2 >88%
Will start p.o. prednisone taper tomorrow
Check HYDRAULIC OPERATOR
Start clear liquid diet and continue TPN for calories
Wean off insulin drip and start Lantus BID
Goal BG 140-180
Continue heparin gtt and trend H/H with eventual transition to oral AC, perhaps Eliquis assuming it is affordable. Recommend CM consultation for assistance
Transfuse as needed to keep Hb >7, plt>50 K
Abx as per ID
Continue azithromycin + DuoNebs for suspected COPD exacerbation
Pain control
Assessment
-
58-year-old man with past medical history noted, admitted to the emergency room with abdominal pain. Found to have bowel ischemia due to occlusion of prior aortic mesenteric bypass. Apparently patient stopped taking Plavix and statin since January
2022. Only on aspirin, emergently taken to the operating room. Transferred to the critical care unit, we were consulted for critical care management.
Impression:
- Acute respiratory failure with hypoxemia on supplemental oxygen � extubated on 09/27/2023
- Left upper extremity superficial vein thrombosis
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
- Status post exploratory laparotomy, lysis of adhesions, aortomesenteric bypass nick thrombectomy, mesenteric arteriogram, patch angioplasty of aortomesenteric bypass graft (OR date: 09-13-2023)
- Ischemic bowel c/b necrosis s/p ex-lap with subtotal colectomy with splenic flexure takedown and distal 70cm of TI also removed (OR date: 09/21/2023)
- Second look laparotomy with end-ileostomy creation (OR date: 09/23/2023)
- GI bleed - GI bleed was likely due to ischemic colitis
- Anemia due to acute blood loss, likely also in setting of bone marrow hypoproliferation
- Leukocytosis due to mesenteric ischemia
- Hyponatremia due to SIADH (acute on chronic - baseline Na approx 131-134) - SIADH is likely due to recent surgery
- Hyperglycemia - resolved
- Lactic acidosis - resolved
- Left flank ecchymosis
- Wheezing - resolved
- Bilateral pleural effusions left greater than right
Conditions present prior admission:
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
graft bypass into the celiac and SMA vessels.
Tobacco abuse
PFT's 06-19-21 with moderate airflow obstruction with some reversibility postbronchodilator on spirometry.-Not on bronchodilators
Moderate COPD/emphysema-not seen by pulmonary in the outpatient office for
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
History of left gastric anemic DVT status post apixaban 03/2021 post left knee surgery
History lumbar vasectomy
Chronic back pain-recent steroid taper
Plan
Patient has markedly improved and was extubated on 09/26 to nasal cannula
Titrate supplemental O2 to maintain SpO2 >88%
He will need an ambulatory pulse oximetry prior to discharge
Regarding his operative Hx:
Patient went back to the OR for laparotomy on 09/22 showing viable remaining small bowel with excellent Doppler signals, and an end-ileostomy was inserted.
Underwent colorectal surgery on 09/20 with necrotic/perforated transverse colon seen and ischemic bowel including the right colon, 70 cm of the terminal ileum and the left colon and the proximal jejunum was also becoming possibly ischemic towards the
end of the procedure. The bowel was left in discontinuity and was divided with 1 firing of the contour stapler. The left colon was resected with the proximal end left open.
Continue TPN in meantime and I discussed starting AC with vascular surgery and colorectal, and considering his recent GI bleed, we started chemical DVT ppx on 09/21; heparin gtt re-started on 09/22 --> he ultimately will need to start a NOAC; perhaps
CM can look into affordability of this so we can TRX off heparin gtt over the next 1-2 days
Considering the pt has COPD and on 09/24 had thick thick, choe secretions from ETT with multiple recent surgeries and now on ventilator for few days, I started solu-medrol 40mg IV q8r. Weaned on 09/26 to 40mg IV q12hr --> I will start PO prednisone
taper tomorrow. His ETT secretions have already improved dramatically. Given his hyperglycemia I started q6hr aspart to keep BG at goal 140-180 in addition to the lantus - however he still remained hyperglycemic and insulin gtt was started on
09/25 (critically ill insulin order set). I will wean off insulin gtt today by strting lantus BID 20 units. Stop insulin gtt 2 hours after first dose. Continue azithro for anti-inflammatory effect and continue DuoNebs QID
Postoperative management as per colorectal/general surgery and vascular surgery -correspondence reviewed and recommendations are appreciated
POD#15 exploratory laparotomy, lysis of adhesions, aortomesenteric bypass nick thrombectomy, mesenteric arteriogram, patch angioplasty of aortomesenteric bypass
POD#7 subtotal colectomy
Antibiotics per surgery-was on Zosyn-changed to meropenem (started on 09-19 in addition to micafungin and IV vancomycin - IV vanco stopped on 09/23)
Follow cultures - Sujatha albicans seen on peritoneal culture from OR on 09-20-2023 + 09/23/2023
Infectious disease consultation noted-correspondence reviewed
He can now start clear liquid diet, as per surgery.
Check HYDRAULIC OPERATOR as well to assure not an aspiration risk
Continue TPN in meantime as well for calorie purposes
Pain management
Maintain MAP>65
Monitor hemoglobin
Transfuse as needed to keep Hb>7, plt>50k
Check retic index
GI evaluation-correspondence reviewed-no acute GI intervention recommended at this point
Continue PPI 40mg IV BID
Monitor renal function
Replace electrolytes as needed
Previously noted to have some hypoglycemia
Dextrose if needed
Continue TPN per surgery
Trend serum Na
Monitor liver functions
Smoking cessation counseling ongoing - not currently relevant; we can address this if pt is extubated
DVT prophylaxis- heparin gtt
Nutrition per surgery and vascular surgery
Note: Dr. Raman reviewed with ex- at the bedside with patient's permission-reviewed case 09/20/2023
Critical care statement: A total of 37minutes of critical care time was provided for this patient today. This includes management of unstable vital signs, evaluation of the patient at bedside, reviewing the patient's pertinent medical records
including radiographs, transfusion management, pressor management, microbiology, laboratory evaluations, and discussion with primary team, consultants, pharmacy, nutrition, physical therapy, case management, charge nurse, critical care nursing, and
respiratory therapy.
Data:
CXR 09-21-2023: Endotracheal tube has been inserted with tip 2.3 cm above the yue.
CXR 09-23-2023: Bibasilar opacification most likely representing subsegmental atelectasis, left greater than right.
CXR 09-24-2023: Endotracheal tube is present with its tip 5.3 cm above the yue; Evidence for bilateral pleural effusions, probably small to moderate. Adjacent parenchymal opacity within the lower lungs, most likely representing atelectasis. Small
subtle opacity in the lateral aspect of the right upper lung stable dating back to June 25, 2021, likely a small focus of scarring. Stability is reassuring that this is benign.
CXR 09-25-2023: Bibasilar opacification without significant change.
CXR 09-26-2023: Persistent bibasilar atelectasis and pleural fluid, minimal improvement in aeration compared to previous exams.
CXR 09-27-2023: Endotracheal tube and nasogastric tube remain in place, unchanged. Also unchanged is a right PICC line catheter. Stable cardiomediastinal margins. No congestive heart failure. As before, there is hazy opacity at the lung bases,
which appears stable. The mid to upper lung zones are clear. No pneumothorax.
CXR 09-28-2023: Interval removal of the endotracheal tube and enteric tube; Increased right basilar opacity, which may represent a combination of pleural fluid, atelectasis, and/or pneumonia.
CTA Abd/Pelvis with/without IV contrast 09-19-2023:
Markedly abnormal examination. No definite findings to suggest an acute retroperitoneal hemorrhage, however there is an increase in free fluid throughout the abdomen and pelvis.
There are small collections of intermediate density throughout the mesentery, concerning for small mesenteric hematomas.
Increased bilateral pleural effusions left greater than right and increased bibasilar consolidation.
As previously noted there is small bowel and large bowel wall thickening. Concerning for ischemia particularly in the transverse colon with increased stranding and inflammatory appearance.
Persistent free air and free fluid, concerning for an occult perforation, no definite site identified.
Celiac axis/SMA bypass graft similar to previous exam.
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 Chavez at 4:00 PM.
Left transversus abdominis intramuscular hematoma. Slightly increased compared to previous exam. Increased bilateral flank edema. Left greater than right. Consistent with the clinical concern for increased bruising.
CTA Abd/Pelvis with/without contrast 09-14-2023:�
Moderate small bowel wall and large bowel wall thickening as described above. Ischemia cannot be excluded.
Free air and free fluid in the abdomen and pelvis likely postsurgical change - new
Celiac axis/SMA bypass graft.
Moderate bibasilar consolidation - new
Chavez catheter present - new
Mild prostate hypertrophy - stable
CTA Abd/Pelvis with/without contrast 09-12-2023:
1. Complete occlusion of the celiac/SMA bypass graft as described.
2. Mild bilateral lower lobe infectious/inflammatory bronchiolitis change.
3. Mild T12 and L4 superior endplate compression deformities, new from 01/20/2023 and age indeterminate. Recommend correlation for any point tenderness in these regions.
Left Upper Extremity US 09-28-2023:
Occlusive thrombus throughout the cephalic vein in the forearm, antecubital fossa, and distal aspect of the upper arm, which is not considered a component of the deep venous system.
No other venous thrombus, including the deep venous/brachial vein.
Subjective Dataa
Subjective Data
Date of Service:
Date of Service: September 28, 2023
Chief Complaint: Face Painter Follow Up (Status post aortomesenteric bypass occlusion.)
Subjective:
Patient seen this morning. He is slow to respond but he is calm and answering my questions appropriately. Confused at times. He pulled out his NG tube overnight and Precedex was started. Precedex is off currently as he became bradycardic this
morning. Hemoglobin 6.7 this morning, no active bleeding seen. 1 unit PRBC being transfused. Of note, his last PRBC transfusion was on 09/23/2023. He is still on insulin infusion at 0.4 units/h. Current heart rate 88 and he is saturating 92% on
3 L/min nasal cannula. Left arm swollen and ultrasound is pending. He is net -1.2 L last 24 hours, however he still remains net +9.1 L since his admission.
Review of Systems
General: Other (Unable to obtain due to confusion/acute clinical status)
Objective Data
Data Reviewed
Vital Signs / I&O / Oxygen:
Vital Signs
Temp Pulse Resp BP Pulse Ox
98.0 F 81 23 163/64 95
09/28/23 08:55 09/28/23 08:55 09/28/23 08:55 09/28/23 08:55 09/28/23 07:33
Intake and Output
09/27/23 09/28/23 09/29/23
06:59 06:59 06:59
Intake Total 2693.6 / 2786.6 2660.2 / 2741.2 391.4 / 391.4
Output Total 2975 / 2975 3910 / 3910
Balance -281.4 / -188.4 -1249.8 / -1168.8 391.4 / 391.4
SaO2 [CPAP] 97
SaO2 [A/C] 95
SaO2 95
Nasal Cannula flow liters per 4
minute
Physical Exam
General: Respiratory Distress (n) and Comfortable
HEENT: Normocephalic and Anicteric
Cardiovascular: S1-S2, Peripheral Edema (+2 lower extremity edema bilaterally with upper extremity edema (L >R)) and Other (Left radial arterial catheter in place)
Respiratory: Wheeze (negative), Crackles (negative), Rhonchi (n), Non-Labored Respirations, Accessory Resp Muscle Use (n), Stridor (n) and Other (Coarse BS b/l)
GI: Soft, Distended, Non Tender and Other (Midline bandages without active bleeding)
Neurology: Awake, Tremors (negative) and Lethargic
Skin: Warm, Dry, Cyanosis (n) and Jaundice (n)
Labs/Micro/Reports
Lab Data
09/28/23 03:33
09/28/23 03:33
Laboratory Results
09/27/23 09/27/23 09/27/23
10:08 11:51 17:36
APTT 150.9 H* 118.1 H
pH 7.48 H
pCO2 43
pO2 87
HCO3 32.0 H
O2 Delivery Level
09/28/23 09/28/23
00:22 06:29
APTT 117.0 H 146.6 H
pH
pCO2
pO2
HCO3
O2 Delivery Level
Microbiology
09/23/23 16:45 Fluid Body Fluid Culture - Final
Sujatha albicans
09/23/23 16:45 Fluid Gram Stain - Final
09/23/23 16:45 Abdomen Anaerobic Culture - Final
NO ANAEROBES ISOLATED
09/21/23 15:00 Abdomen Wound Culture - Final
Sujatha albicans
09/21/23 15:00 Abdomen Gram Stain - Final
09/21/23 15:00 Peritoneal Fluid Anaerobic Culture - Final
NO ANAEROBES ISOLATED
09/20/23 10:03 Blood/Venous Blood Culture - Final
No Growth - Final Report
09/20/23 10:11 Blood/Venous Blood Culture - Final
No Growth - Final Report
[2023-09-28 08:43] LABS: Glucose - Point of Care 86 mg/dl (70-99)
[2023-09-28 08:55] VITALS: BP 163/64
--- NOTE | 2023-09-28 09:00 | PTCARENOTE ---
LFA INT concerning...left arm appears swollen. PRBC infusion changed to PICC...heparin gtt placed on hold. VAT notified.
[2023-09-28] MEDS: DILAUDID 0.5 MG IV (09:30)
--- NOTE | 2023-09-28 09:30 | PTCARENOTE ---
VAT unable to get new IV site in left arm....concerned w/ edema. US ordered. aware.
[2023-09-28] MEDS: NOVOLIN R INSULIN INFUSION 100 IV (09:39)
[2023-09-28 11:00] VITALS: BP 188/73
[2023-09-28] MEDS: HEPARIN 25000 UNITS/250 ML IV (11:02)
[2023-09-28] MEDS: ZITHROMAX 252.5 MG IV (11:02)
[2023-09-28 11:12] LABS: Glucose - Point of Care 148 mg/dl (70-99)
--- NOTE | 2023-09-28 11:25 | PTCARENOTE ---
Ultrasound at bedside for left upper arm ultrasound r/o clot due to edema.
--- NOTE | 2023-09-28 11:26 | CHAP ---
Mr. Barros and his measurement and verification engineer welcomed the visit. Emotional and spiritual support provided.
--- NOTE | 2023-09-28 12:00 | PTCARENOTE ---
Lantus SQ given....will shut gtt off in 2hrs per MD orders. Pt remains on 2L N/C...sats low of 90-92%. Coughing and deep breathing encouraged...IS done. O2 increased to 4L N/C...CXR done. VS documented....MD aware of hypertension....hydralazine
ordered prn. Will continue to monitor closely.
[2023-09-28] MEDS: LANTUS 0.200000000000000011 UNITS SC ×2 (12:11→21:38)
[2023-09-28] MEDS: MYCAMINE 105 MG IV (12:14)
[2023-09-28] MEDS: APRESOLINE 10 MG IV ×2 (12:23→18:38)
--- NOTE | 2023-09-28 12:59 | W.PN.CRS1 ---
Addendum entered and electronically signed by Esteban Ward MD 09/28/23 13:40:
I saw and examined the patient.
The Sole Stapler Welt's note was reviewed and I agree with the note.
Comment: Pt extubated and doing well. NGT inadvertently removed. Abd exam approp, incision cdi, Stoma PPV with liquid stool. Pain controlled. OK to start clears provided he has adequate swallow function, cont TPN for today as he is unlikely to take
in much PO.
Original Note:
Today's Communication / Plan
-
Clear liquids
Continue TPN
Assessment/Plan
-
58-year-old male who presented with SMA thrombus/occlusion
POD #15 ex lap with SMA graft thrombectomy with patch angioplasty, complicated by worsening mesenteric ischemia and sepsis
POD #7 ex lap subtotal colectomy, left in discontinuity
POD #5 planned take back, creation of end ileostomy
AFVSS
Some delirium overnight
R CHAY with serous fluid, L CHAY with brown/miguel drainage (likely old blood): outputs decreasing
WBC trending back down. H/H drifting down. Receiving blood.
--Renewed TPN, advanced to clear liquids today.
--Continue drains
--ICU care/medical care as per primary team
--Heparin gtt as per primar team
--ABX as per ID
--Wound/stoma rn following. Dry gauze dressings to incision
--SCD's while in bed
Subjective Data
Procedure
09/21/2023- Exploratory laparotomy, subtotal colectomy (takedown of splenic flexure)
09/23/2023- 2nd look laparotomy and ileostomy (reopening of recent laparotomy)
Subjective Data
Date of Service: September 28, 2023
Patient seen and examined at bedside with Dr. Ward. Nursing reports confusion overnight, impulsive. Patient extubated. Offering no complaints. Removed own NGT overnight
Objective Data
-
Vital Signs
Temp Pulse Resp BP Pulse Ox
97.9 F 91 18 195/78 95
09/28/23 11:26 09/28/23 12:23 09/28/23 11:34 09/28/23 12:23 09/28/23 11:34
Intake & Output
09/27/23 09/28/23 09/29/23
06:59 06:59 06:59
Intake Total 2693.6 / 2786.6 2660.2 / 2741.2 641.4 / 641.4
Output Total 2975 / 2975 3910 / 3910
Balance -281.4 / -188.4 -1249.8 / -1168.8 641.4 / 641.4
Intake:
IV fluids (Total) 783.6 / 816.6 540.2 / 561.2 21.4 / 21.4
Heparin 564 / 587 432 / 449 17 / 17
Insulin 54.3 / 59.3 71.4 / 75.4 4.4 / 4.4
Precedex 16.8 / 16.8
fentanyl 118.0 / 123.0 20 / 20
levophed 13.4 / 13.4
propofol 33.9 / 33.9
IV piggybacks 270 / 270 350 / 350
TPN/PPN 1560 / 1620 1380 / 1440 120 / 120
Amount instilled into GI Tube ( 80 / 80 90 / 90
Total)
Pierce Sump 80 / 80 90 / 90
Blood Products 300 / 300 250 / 250
Albumin 25% 300 / 300
Packed red blood cells 250 / 250
Blood Product Amount Infused ( 250 / 250
mL)
Packed Rbc Leukoreduced Unit 250 / 250
[id number]
Output:
Liquid stool amount 50 / 50
Ileostomy 50 / 50
Drain Output (Total) 275 / 275 180 / 180
Left Filiberto-Roche B 175 / 175 120 / 120
Right Filiberto-Roche A 100 / 100 60 / 60
Gastrointestinal tube output ( 600 / 600 250 / 250
Total)
Pierce Sump 600 / 600 250 / 250
Urine, Chavez 2099 / 2099 3430 / 3430
Lab Results
09/28/23 03:33
09/28/23 03:33
Physical Exam
-
General: No Acute Distress
HEENT: Grossly Normal
Abdomen: Soft, Non Distended, TPN Ordered and Other (stoma pink/viable, liquid stool noted in appliance with flatus)
Skin: Warm
Wound: Other (R CHAY with serosanguineous fluid, L CHAY with old bloody drainage)
Incision: Other (christin intact, well approximated)
[2023-09-28 13:11] LABS: Glucose - Point of Care 121 mg/dl (70-99)
--- NOTE | 2023-09-28 15:05 | W.PN.HOSP.TC ---
Today's Communication/Plan
-
trial morphine for pain
continue clears/TPN
continue IV Heparin
1 unit PRBC given today
Assessment / Plan
Assessment / Plan
Assessment:
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
- s/p Exploratory laparotomy, lysis of adhesions, aorto-mesenteric bypass Tona thrombectomy, mesenteric arteriogram, patch angioplasty of aorto-mesenteric bypass 09/12
- Vascular following
- CT-A 09/13 showing patient bypass, concern for bowel ischemia (see below)
Ischemic bowel c/b necrotic bowel
- CRS managing
- s/p ex-lap 09/20: Necrotic and perforated entire transverse colon, ischemic right colon and terminal ileum, ischemic left colon, ? ischemia of the proximal jejunum. 70 cm terminal colon with entire right colon, transverse colon and descending colon
removed.
- s/p 2nd look ex-lap 09/22 with Murky fluid throughout the abdomen, viable remaining small intestine with excellent Doppler signals, Haily ileostomy
- continue IV Heparin with PTT protocol
- ID following for suspected secondary peritonitis. Continue Meropenem, Micafungin. May need chronic suppression.
- Hematology input about thrombophilia assessments noted - transition into DOAC once off of IV heparin and follow with office for work up.
Ventilator dependent respiratory failure/acute hypoxic respiratory failure
- extubated 09/26 - monitor O2 needs
Post-op shock - multifactorial from sepsis/blood loss
- pressors weaned 09/26
- Echo normal EF
GI bleed related to ischemic colitis
Acute blood loss anemia
- monitor Hb
- 1 unit given 09/27
- continue PPI
Hyponatremia due to SIADH (acute on chronic - baseline Na approx 131-134) - SIADH is likely due to recent surgery, also component of volume overload
- BNP only mildly elevated but patient up at least 20-25 pounds
- Echo normal
- IV Lasix BID continues
Left flank ecchymosis
Bilateral pleural effusions left greater than right
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
CAD s/p prior hx of NSTEMI - asymptomatic without chest pain. On aspirin at home.
Hyperbilirubinemia- mostly indirect elevation, possible Gilbert's + hematomas related. Continue to follow.
Hypocalcemia - replete
Hx of DVT status post apixaban 03/2021 post left knee surgery
Chronic back pain - recent steroid taper. Continued mid back pain which is a equally troubling. No sciatica . plain xrays show loss of height of superior endplate t12,l4 . Pt had pull while lifting something at home but no fall or trauma. continue
symptomatic tx
Hyperglycemia
No hx of DM
- HbA1C 5.8
Tobacco abuse - remains actively smoking. Cessation recommended.
Nutrition - resumed TPN. Hypoalbuminemia severe noted.
Occlusive thrombus throughout the cephalic vein in the forearm, antecubital fossa, and distal aspect of the upper arm
- continue IV heparin
DVT ppx: IV Heparin
Code: Full
Total Critical Care Time 40 minutes. I was immediately available to the patient and staff. I personally examined, reviewed labs, diagnostic images/reports, interpretations, treatment plans, discussed patient care with other providers and family
or caregivers (if patient is unable to make decisions), entered orders as appropriate and documented the medical record.
Anticipated Discharge: > 48 hours
Subjective/Interval History
-
Date of Service: September 28, 2023
pulled [place] tube - continues TPN/clears
remains confused, sleep deprived
reports back pain
Objective Data
-
Labs:
Laboratory Results
09/28/23 09/28/23 09/28/23
03:33 06:29 17:00
WBC 20.8 H
Hgb 6.7 L*
Hct 20.6 L*
Plt Count 366
APTT 146.6 H Pending
Sodium 142
Potassium 3.9
Chloride 109 H
Carbon Dioxide 31 H
BUN 42 H
Creatinine 0.7
Glucose 100 H
Calcium 8.2 L
Total Bilirubin 1.8 H
AST 256 H
ALT 217 H
Alkaline Phosphatase 161 H
Vital Signs:
Vital Signs
Temp Pulse Resp BP Pulse Ox
97.9 F 101 25 195/78 92
09/28/23 11:26 09/28/23 13:00 09/28/23 13:00 09/28/23 12:23 09/28/23 13:00
I&O
09/27/23 09/28/23 09/29/23
06:59 06:59 06:59
Intake Total 2693.6 / 2786.6 2660.2 / 2741.2 1350.7 / 1350.7
Output Total 2975 / 2975 3910 / 3910 204 / 204
Balance -281.4 / -188.4 -1249.8 / -1168.8 -689.3 / -689.3
Physical Exam
-
General: No Apparent Distress
HEENT: Normocephalic and Atraumatic
Respiratory: Negative Wheezes or Rales
Cardiac: Regular Rhythm and S1/S2
GI: Soft and Nontender
Genito-urinary: No Costovertebral Tender
Neuro: Awake
Psych: Calm and Confused
Data Reviewed
-
Critical Care Time (in minutes): 40
Labs: Labs Reviewed by me
[2023-09-28] MEDS: MORPHINE SULFATE 2 MG IV ×2 (15:28→19:05)
[2023-09-28 15:55] LABS: Reticulocyte Count 2.7 % (0.4-2.8)
--- NOTE | 2023-09-28 16:00 | PTCARENOTE ---
made aware of pt's paranoia and confusion. Safe, quiet environment provided w/ pt's family at bedside. Pt awake but confused. Believes his children are small and that he is still . No major changes in physical assessment. BP
remains elevated... and aware. Repeat labs at 1700. Taking sips of water and ice chips w/o issue. Will continue to monitor closely.
[2023-09-28 16:53] LABS: Hematocrit 25.6 % (39.0-52.0)
[2023-09-28 16:57] LABS: Hemoglobin 8.7 g/dL (13.0-18.0)
[2023-09-28 17:02] LABS: APTT 35.7 Sec (23.4-35.0)
[2023-09-28 17:39] LABS: Glucose - Point of Care 150 mg/dl (70-99)
[2023-09-28] MEDS: NOVOLOG FLEXPEN-MODERATE RESISTANCE 1 UNITS SC (18:22)
--- NOTE | 2023-09-28 19:05 | PTCARENOTE ---
Pt restless, confused, delirious, morphine 2mg iv given for pain
--- NOTE | 2023-09-28 19:30 | PTCARENOTE ---
Pt disconnected colin, restless, delirious, confused, colin tubing & dsg changed, linens changed, wrists restrained for pt safety, precedex gtt started at 0.2 keyanna at 1940, ST, left rad colin now w/ good wave form, flushes well, zeroed, approx 10mm >
than cuff, weak distal pulses, + edema, skin warm/dry, o2 2 liters nc, sat 92, lungs w/ decr breath sounds, exp wheezes w/ exertion, resp rx given by therapist, weak cough, unable to understand how to do IS at this time, + bowel sounds, ileostomy w/
scant brown drainage, R& L CHAY's intact, abd dsg intact, garcía draining yelow urine, hep gtt at 1800 units/hr
[2023-09-28 19:53] VITALS: BP 153/86
[2023-09-28 20:00] VITALS: BP 153/86
[2023-09-28] MEDS: Parenteral Nutrition, Central 1440 IV (20:43)
[2023-09-28 21:43] LABS: Glucose - Point of Care 187 mg/dl (70-99)
[2023-09-28 23:01] LABS: APTT 99.2 Sec (23.4-35.0)
[2023-09-28] MEDS: NOVOLOG FLEXPEN-MODERATE RESISTANCE 3 UNITS SC (23:53)
[2023-09-29] VITALS (16 sets, daily range): BP systolic 95–191; BP diastolic 43–85; PULSE 89; O2SAT 92–94; BMI 24.6
--- NOTE | 2023-09-29 | PTCARENOTE ---
sys reviewed, calm, oriented to self, place, CHG bath done, linens changed, abd & CHAY dsgs changed
[2023-09-29 00:04] LABS: Glucose - Point of Care 233 mg/dl (70-99)
[2023-09-29] MEDS: HEPARIN 25000 UNITS/250 ML IV ×2 (02:03→16:51)
[2023-09-29] MEDS: STERILE WATER FOR INJECTION 10 ML IV ×4 (03:33→21:41)
[2023-09-29] MEDS: MERREM 500 MG IV ×4 (03:33→21:40)
[2023-09-29 05:21] LABS: % Basophils 0.5 % (0-2); % Immature Granulocytes 4.6 % (0-0.5); % Monocytes 7.6 % (1.7-9.3); % Neutrophils 76.3 % (42.2-75.2); Absolute Basophils 0.1 10^3/uL (0-0.2); Absolute Immature Granulocytes 0.9 10^3/uL (0-0.05); Absolute Lymphocytes 2.2 10^3/uL (1.2-3.4); Absolute Monocytes 1.5 10^3/uL (0.1-0.6); Absolute Neutrophils 15.6 10^3/uL (1.4-6.5); Hematocrit 23.9 % (39.0-52.0); Hemoglobin 7.9 g/dL (13.0-18.0); Mean Corp Hgb Conc. 33.1 g/dL (33.0-37.0); Mean Corpuscular Hgb 29.5 pg (27.0-31.0); Mean Corpuscular Volume 89.2 fL (80.0-94.0); Nucleated Red Blood Cells % 0.8 % (-); Platelet Count 319 10^3/uL (130-400); Red Blood Cell Count 2.68 10^6/uL (4.70-6.10); Red Cell Dist. Width 17.7 % (11.5-14.5); White Blood Cell Count 20.4 10^3/uL (4.8-10.8)
[2023-09-29 05:34] LABS: APTT 115.7 Sec (23.4-35.0)
[2023-09-29 05:54] LABS: ALT (SGPT) 132 U/L (0-50); AST (SGOT) 74 U/L (17-59); Albumin 2.1 g/dl (3.5-5.0); Alkaline Phosphatase 128 U/L (38-126); Blood Urea Nitrogen 43 mg/dl (9-20); Carbon Dioxide 32 mmol/L (22-30); Chloride 106 mmol/L (98-107); Estimated Creatinine Clearance 120 ml/min; Glucose 198 mg/dl (70-99); Magnesium 2.7 mg/dl (1.6-2.3); Phosphorus 4.5 mg/dl (2.5-4.5); Sodium 140 mmol/L (135-145); Total Bilirubin 1.7 mg/dl (0.2-1.3); Total Protein 4.4 g/dl (6.3-8.2); eGFR > 60.00
[2023-09-29 05:59] LABS: Potassium 4.4 mmol/L (3.5-5.1)
[2023-09-29] MEDS: NOVOLOG FLEXPEN-MODERATE RESISTANCE 1 UNITS SC ×2 (06:17→23:47)
--- NOTE | 2023-09-29 06:21 | PTCARENOTE ---
precedex at 0.2 keyanna- pt easily awakens, oriented to self & place
--- NOTE | 2023-09-29 07:19 | W.PN.INTV ---
Today's Communication / Plan
Recommendations
Confusion ongoing, will order CT head
Wean precedex as tolerated--ongoing ICU delirium suspected
Diet per surgical team, continued on TPN
Continue further postop care, minimize sedation as tolerated
PT/OT
Off pressors/otherwise stable
Assessment
-
58-year-old man with past medical history noted, admitted to the emergency room with abdominal pain. Found to have bowel ischemia due to occlusion of prior aortic mesenteric bypass. Apparently patient stopped taking Plavix and statin since January
2022. Only on aspirin, emergently taken to the operating room. Transferred to the critical care unit, we were consulted for critical care management.
Impression:
- Acute respiratory failure with hypoxemia on supplemental oxygen � extubated on 09/27/2023
- Left upper extremity superficial vein thrombosis
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
- Status post exploratory laparotomy, lysis of adhesions, aortomesenteric bypass nick thrombectomy, mesenteric arteriogram, patch angioplasty of aortomesenteric bypass graft (OR date: 09-13-2023)
- Ischemic bowel c/b necrosis s/p ex-lap with subtotal colectomy with splenic flexure takedown and distal 70cm of TI also removed (OR date: 09/21/2023)
- Second look laparotomy with end-ileostomy creation (OR date: 09/23/2023)
- GI bleed - GI bleed was likely due to ischemic colitis
- Anemia due to acute blood loss, likely also in setting of bone marrow hypoproliferation
- Leukocytosis due to mesenteric ischemia
- Hyponatremia due to SIADH (acute on chronic - baseline Na approx 131-134) - SIADH is likely due to recent surgery
- Hyperglycemia - resolved
- Lactic acidosis - resolved
- Left flank ecchymosis
- Wheezing - resolved
- Bilateral pleural effusions left greater than right
Conditions present prior admission:
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
graft bypass into the celiac and SMA vessels.
Tobacco abuse
PFT's 06-19-21 with moderate airflow obstruction with some reversibility postbronchodilator on spirometry.-Not on bronchodilators
Moderate COPD/emphysema-not seen by pulmonary in the outpatient office for
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
History of left gastric anemic DVT status post apixaban 03/2021 post left knee surgery
History lumbar vasectomy
Chronic back pain-recent steroid taper
Plan
Patient was extubated on 09/26 to nasal cannula
Titrate supplemental O2 to maintain SpO2 >88%
He will need an ambulatory pulse oximetry prior to discharge
Confusion ongoing, will order CT Head
Placed on precedex overnight due to agitation
Regarding his operative Hx:
Patient went back to the OR for laparotomy on 09/22 showing viable remaining small bowel with excellent Doppler signals, and an end-ileostomy was inserted.
Underwent colorectal surgery on 09/20 with necrotic/perforated transverse colon seen and ischemic bowel including the right colon, 70 cm of the terminal ileum and the left colon and the proximal jejunum was also becoming possibly ischemic towards the
end of the procedure.
The bowel was left in discontinuity and was divided with 1 firing of the contour stapler. The left colon was resected with the proximal end left open.
Continue TPN in meantime and I discussed starting AC with vascular surgery and colorectal, and considering his recent GI bleed,
started chemical DVT ppx on 09/21; heparin gtt re-started on 09/22 -->
he ultimately will need to start a NOAC; perhaps CM can look into affordability of this so we can TRX off heparin gtt over the next 1-2 days
Considering the pt has COPD and on 09/24 had thick thick, choe secretions from ETT with multiple recent surgeries and now on ventilator for few days,
started solu-medrol 40mg IV q8r. Weaned on 09/26 to 40mg IV q12hr -->
Start PO prednisone taper
His ETT secretions have already improved dramatically.
Continue azithro for anti-inflammatory effect and continue DuoNebs QID
Given his hyperglycemia I started q6hr aspart to keep BG at goal 140-180 in addition to the lantus -
however he still remained hyperglycemic and insulin gtt was started on 09/25 (critically ill insulin order set).
I will wean off insulin gtt today by strting lantus BID 20 units. Stop insulin gtt 2 hours after first dose.
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
Postoperative management as per colorectal/general surgery and vascular surgery -correspondence reviewed and recommendations are appreciated
POD#15 exploratory laparotomy, lysis of adhesions, aortomesenteric bypass nick thrombectomy, mesenteric arteriogram, patch angioplasty of aortomesenteric bypass
POD#7 subtotal colectomy
He can now start clear liquid diet, as per surgery.
Check KITCHEN RUNNER as well to assure not an aspiration risk
Continue TPN in meantime as well for calorie purposes
Antibiotics per surgery-was on Zosyn-changed to meropenem (started on 09-19 in addition to micafungin and IV vancomycin - IV vanco stopped on 09/23)
Follow cultures - Sujatha albicans seen on peritoneal culture from OR on 09-21-2023 + 09/23/2023
Infectious disease consultation noted-correspondence reviewed
Pain management
Maintain MAP>65
Monitor hemoglobin
Transfuse as needed to keep Hb>7, plt>50k
Check retic index
GI evaluation-correspondence reviewed-no acute GI intervention recommended at this point
Continue PPI 40mg IV BID
Monitor renal function
Replace electrolytes as needed
Previously noted to have some hypoglycemia
Dextrose if needed
Continue TPN per surgery
Trend serum Na
Monitor liver functions
Smoking cessation counseling ongoing - not currently relevant; we can address this if pt is extubated
DVT prophylaxis- heparin gtt
Nutrition per surgery and vascular surgery
Note: Dr. Raman reviewed with ex- at the bedside with patient's permission-reviewed case 09/20/2023
Diagnostic Data
CXR 09-21-2023: Endotracheal tube has been inserted with tip 2.3 cm above the yue.
CXR 09-23-2023: Bibasilar opacification most likely representing subsegmental atelectasis, left greater than right.
CXR 09-24-2023: Endotracheal tube is present with its tip 5.3 cm above the yue; Evidence for bilateral pleural effusions, probably small to moderate. Adjacent parenchymal opacity within the lower lungs, most likely representing atelectasis. Small
subtle opacity in the lateral aspect of the right upper lung stable dating back to June 25, 2021, likely a small focus of scarring. Stability is reassuring that this is benign.
CXR 09-25-2023: Bibasilar opacification without significant change.
CXR 09-26-2023: Persistent bibasilar atelectasis and pleural fluid, minimal improvement in aeration compared to previous exams.
CXR 09-27-2023: Endotracheal tube and nasogastric tube remain in place, unchanged. Also unchanged is a right PICC line catheter. Stable cardiomediastinal margins. No congestive heart failure. As before, there is hazy opacity at the lung bases,
which appears stable. The mid to upper lung zones are clear. No pneumothorax.
CXR 09-28-2023: Interval removal of the endotracheal tube and enteric tube; Increased right basilar opacity, which may represent a combination of pleural fluid, atelectasis, and/or pneumonia.
CTA Abd/Pelvis with/without IV contrast 09-19-2023:
Markedly abnormal examination. No definite findings to suggest an acute retroperitoneal hemorrhage, however there is an increase in free fluid throughout the abdomen and pelvis.
There are small collections of intermediate density throughout the mesentery, concerning for small mesenteric hematomas.
Increased bilateral pleural effusions left greater than right and increased bibasilar consolidation.
As previously noted there is small bowel and large bowel wall thickening. Concerning for ischemia particularly in the transverse colon with increased stranding and inflammatory appearance.
Persistent free air and free fluid, concerning for an occult perforation, no definite site identified.
Celiac axis/SMA bypass graft similar to previous exam.
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 Chavez at 4:00 PM.
Left transversus abdominis intramuscular hematoma. Slightly increased compared to previous exam. Increased bilateral flank edema. Left greater than right. Consistent with the clinical concern for increased bruising.
CTA Abd/Pelvis with/without contrast 09-14-2023:�Moderate small bowel wall and large bowel wall thickening as described above. Ischemia cannot be excluded. Free air and free fluid in the abdomen and pelvis likely postsurgical change - new. Celiac
axis/SMA bypass graft. Moderate bibasilar consolidation - new
Chavez catheter present - new
Mild prostate hypertrophy - stable
CTA Abd/Pelvis with/without contrast 09-12-2023:
1. Complete occlusion of the celiac/SMA bypass graft as described.
2. Mild bilateral lower lobe infectious/inflammatory bronchiolitis change.
3. Mild T12 and L4 superior endplate compression deformities, new from 01/20/2023 and age indeterminate. Recommend correlation for any point tenderness in these regions.
Left Upper Extremity US 09-28-2023:
Occlusive thrombus throughout the cephalic vein in the forearm, antecubital fossa, and distal aspect of the upper arm, which is not considered a component of the deep venous system.
No other venous thrombus, including the deep venous/brachial vein.
-----
Critical Care time 40 mins -- The patient is admitted for acute critical illness for the treatment of vital organ failure and/or prevention of further life-threatening conditions. Total care includes time spent in review of history, physical exam,
medications, hemodynamic/ventilator parameters, laboratory data, imaging and discussion with house staff, pharmacy, respiratory therapy, sales development coordinator, and nursing.
Subjective Dataa
Subjective Data
Date of Service:
Date of Service: September 29, 2023
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
Subjective:
Patient seen today, confused
No acute events ON
Objective Data
Data Reviewed
Vital Signs / I&O / Oxygen:
Vital Signs
Temp Pulse Resp BP Pulse Ox
98.0 F 70 15 108/50 96
09/29/23 03:18 09/29/23 06:00 09/29/23 06:00 09/29/23 06:00 09/29/23 06:00
Intake and Output
09/28/23 09/29/23 09/30/23
06:59 06:59 06:59
Intake Total 2660.2 / 2741.2 2732.8 / 2732.8
Output Total 3910 / 3910 5927 / 5927
Balance -1249.8 / -1168.8 -3194.2 / -3194.2
SaO2 [CPAP] 97
SaO2 [A/C] 95
SaO2 96
Nasal Cannula flow liters per 2
minute
Physical Exam
General: Respiratory Distress (n) and Comfortable
HEENT: Normocephalic and Anicteric
Cardiovascular: S1-S2, Regular Rhythm, Peripheral Edema (+2 lower extremity edema bilaterally with upper extremity edema (L >R)) and Other (Left radial arterial catheter in place)
Respiratory: Wheeze (negative), Crackles (negative), Rhonchi (n), Non-Labored Respirations, Accessory Resp Muscle Use (n), Stridor (n) and Other (Coarse BS b/l)
GI: Soft, Distended, Non Tender and Other (Midline bandages without active bleeding)
Neurology: Awake, Alert, AO x 3 (to self only, confused to time/place), Tremors (negative) and Lethargic
Skin: Warm, Dry, Cyanosis (n) and Jaundice (n)
Labs/Micro/Reports
Lab Data
09/29/23 05:09
09/29/23 05:09
Laboratory Results
09/28/23 09/28/23 09/28/23
06:29 16:44 22:41
APTT 146.6 H 35.7 H 99.2 H
09/29/23
05:09
APTT 115.7 H
Microbiology
09/23/23 16:45 Fluid Body Fluid Culture - Final
Sujatha albicans
09/23/23 16:45 Fluid Gram Stain - Final
09/23/23 16:45 Abdomen Anaerobic Culture - Final
NO ANAEROBES ISOLATED
09/21/23 15:00 Abdomen Wound Culture - Final
Sujatha albicans
09/21/23 15:00 Abdomen Gram Stain - Final
09/21/23 15:00 Peritoneal Fluid Anaerobic Culture - Final
NO ANAEROBES ISOLATED
[2023-09-29] MEDS: DUONEB 3 ML INH ×2 (07:20→11:09)
[2023-09-29] MEDS: LASIX 40 MG IV (09:18)
[2023-09-29] MEDS: PROTONIX IV 40 MG IV ×2 (09:19→19:34)
[2023-09-29] MEDS: ZITHROMAX 252.5 MG IV (09:19)
[2023-09-29] MEDS: NSS (PRESERVATIVE FREE) 10 ML IV ×2 (09:20→19:34)
[2023-09-29] MEDS: LANTUS 0.200000000000000011 UNITS SC (09:23)
[2023-09-29 09:28] LABS: Glucose - Point of Care 147 mg/dl (70-99)
--- NOTE | 2023-09-29 10:01 | W.PN.HOSP.TC ---
Today's Communication/Plan
-
Renew IV Heparin.Follow HH.
Diet per surgery.
Wean Precedex. DC restraints if remains stable after precedex is dced.
PT evals
Assessment / Plan
Assessment / Plan
Assessment:
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
- s/p Exploratory laparotomy, lysis of adhesions, aorto-mesenteric bypass Tona thrombectomy, mesenteric arteriogram, patch angioplasty of aorto-mesenteric bypass 09/12
- Vascular following
- CT-A 09/13 showing patient bypass, concern for bowel ischemia (see below)
Ischemic bowel c/b necrotic bowel
- CRS managing
- s/p ex-lap 09/20: Necrotic and perforated entire transverse colon, ischemic right colon and terminal ileum, ischemic left colon, ? ischemia of the proximal jejunum. 70 cm terminal colon with entire right colon, transverse colon and descending colon
removed.
- s/p 2nd look ex-lap 09/22 with Murky fluid throughout the abdomen, viable remaining small intestine with excellent Doppler signals, Haily ileostomy
- continue IV Heparin with PTT protocol
- ID following for suspected secondary peritonitis. Continue Meropenem, Micafungin.
- Hematology input about thrombophilia assessments noted - transition into DOAC once off of IV heparin and follow with office for work up.
Ventilator dependent respiratory failure/acute hypoxic respiratory failure
- extubated 09/26 - monitor O2 needs
- Oxygenating well on nasal cannula
Post-op shock - multifactorial from sepsis/blood loss
- pressors weaned 09/26;Hemodynamics stable
- Echo normal EF
Delirium -post op -suspected TME. Oriented and calm today. Wean precedex.
GI bleed related to ischemic colitis
Acute blood loss anemia
- monitor Hb
- 1 unit given 09/27
- continue PPI
Hyponatremia due to SIADH (acute on chronic - baseline Na approx 131-134) - SIADH is likely due to recent surgery, also component of volume overload
- BNP only mildly elevated
- Echo normal
- Improving weight. Switch to once a day IV Lasix.
Left flank ecchymosis
Bilateral pleural effusions left greater than right
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
CAD s/p prior hx of NSTEMI - asymptomatic without chest pain. On aspirin at home.
Hyperbilirubinemia- mostly indirect elevation, possible Gilbert's + hematomas related. Continue to follow.
Hypocalcemia - replete
Hx of DVT status post apixaban 03/2021 post left knee surgery
Chronic back pain - recent steroid taper. Continued mid back pain which is a equally troubling. No sciatica . plain xrays show loss of height of superior endplate t12,l4 . Pt had pull while lifting something at home but no fall or trauma. continue
symptomatic tx
Hyperglycemia
No hx of DM
- HbA1C 5.8
Tobacco abuse - remains actively smoking. Cessation recommended.
Nutrition - resumed TPN. Hypoalbuminemia severe noted.
Occlusive thrombus left arm - throughout the cephalic vein in the forearm, antecubital fossa, and distal aspect of the upper arm
- continue IV heparin
DVT ppx: IV Heparin
Code: Full
DW MANAGER QA
PT consult.
Total time spent on today's encounter was 52 minutes which included time spent in counseling the patient/family regarding diagnosis and treatment plan as listed above, goals of care, and symptom management. Case was discussed with nursing staff,
specialists, and care coordinators/case management. All labs and imaging personally reviewed by me. Remainder the time spent in detailed review of previous records, lab data, imaging, and other medical provider documentation.
Anticipated Discharge: > 48 hours
Subjective/Interval History
-
Date of Service: September 29, 2023
Patient was noted to be confused and delirious ,on Precedex currently.
This morning he is alert and oriented to place and person. He knew the year but thought it was August and friday.
He feels very thirsty. No abdominal pain.
Denies shortness of breath.
Objective Data
-
Labs:
Laboratory Results
09/28/23 09/29/23 09/29/23
22:41 05:09 11:45
WBC 20.4 H
Hgb 7.9 L
Hct 23.9 L
Plt Count 319
APTT 99.2 H 115.7 H Pending
Sodium 140
Potassium 4.4
Chloride 106
Carbon Dioxide 32 H
BUN 43 H
Creatinine 0.7
Glucose 198 H
Calcium 8.0 L
Total Bilirubin 1.7 H
AST 74 H
ALT 132 H
Alkaline Phosphatase 128 H
Vital Signs:
Vital Signs
Temp Pulse Resp BP Pulse Ox
98.4 F 79 20 108/50 94
09/29/23 07:54 09/29/23 08:00 09/29/23 08:00 09/29/23 06:00 09/29/23 08:00
I&O
09/28/23 09/29/23 09/30/23
06:59 06:59 06:59
Intake Total 2660.2 / 2741.2 2732.8 / 2755.1 44.6 / 44.6
Output Total 3910 / 3910 5927 / 6002 150 / 150
Balance -1249.8 / -1168.8 -3194.2 / -3246.9 -105.4 / -105.4
Review of Systems
-
EENT: Denies Sore Throat
Respiratory: Denies Cough or Trouble Breathing
Cardiac: Denies Chest Pain
Abdomen/GI: Denies Nausea
Neuro: Denies Dizzy
Physical Exam
-
General: No Apparent Distress
HEENT: Moist Mucous Membranes
Respiratory: Clear to Auscultation (Anteriorly)
Cardiac: Regular Rhythm and S1/S2; Negative Tachycardic
GI: Soft and Normal Bowel Sounds
Neuro: Awake, Alert and Oriented
Psych: Calm; Negative Agitated
Data Reviewed
-
Labs: Labs Reviewed by me
--- NOTE | 2023-09-29 10:40 | W.PN.ID1 ---
Date of Service
Date of Service: September 29, 2023
Today's Communication
Continue abx's.
Assessment / Plan
Sujatha peritonitis
Leukocytosis
- Ongoing but slightly improved today.
- Likely steroid component.
Total SMA graft occlusion
- s/p thrombectomy (performed through prior graft) & patch repair
Acute mesenteric ischemia
Transaminitis
Hx medication noncompliance
Recommendations:
- murky fluid was noted in the abdomen in the OR, though no perforations noted.
- current cultures with C. albicans
- blood cultures : NGTD
- wound cx: c albicans
- continue meropenem (d#10), micafungin (d#10).
- follow clinically
Case previously discussed with Vascular Surgery. Thrombectomy needed to be performed through prior graft, potentially exposing graft material to peritoneal contents. Patient may ultimately need chronic suppression.
����������������������������������������������������������
Chief Complaint
-: Leukocytosis and Other (secondary peritonitis)
Subjective / Review of Systems
+ abdominal pain
Vital Signs / Physical Exam
Vital Signs
Vital Signs
Temp Pulse Resp BP Pulse Ox
98.4 F 79 20 125/70 94
09/29/23 07:54 09/29/23 08:00 09/29/23 08:00 09/29/23 10:04 09/29/23 08:00
Physical Exam
Constitutional: No Acute Distress
Gastrointestinal: Soft, Tender (mild), Decreased Bowel Sounds and Other (ostomy intact)
Extremities: Negative Edema
Neurological: Awake
Objective Data
Lab Data
Lab Results
09/29/23 05:09
09/29/23 05:09
PT 17.8 Sec (11.4-14.6) H 09/13/23 03:17
INR 1.49 09/13/23 03:17
APTT 115.7 Sec (23.4-35.0) H 09/29/23 05:09
Estimated Creat Clear 120 ml/min 09/29/23 05:09
Lactic Acid 1.5 mmol/L (0.7-2.0) 09/21/23 17:38
Total Bilirubin 1.7 mg/dl (0.2-1.3) H 09/29/23 05:09
AST 74 U/L (17-59) H 09/29/23 05:09
ALT 132 U/L (0-50) H 09/29/23 05:09
Alkaline Phosphatase 128 U/L (38-126) H 09/29/23 05:09
Most recent labs reviewed.
Micro Results:
09/23/23 16:45 Body Fluid Culture - Final
Fluid Sujatha albicans
Gram Stain - Final
09/23/23 16:45 Anaerobic Culture - Final
Abdomen NO ANAEROBES ISOLATED
09/21/23 15:00 Wound Culture - Final
Abdomen Sujatha albicans
Gram Stain - Final
09/21/23 15:00 Anaerobic Culture - Final
Peritoneal Fluid NO ANAEROBES ISOLATED
09/20/23 10:03 Blood Culture - Final
Blood/Venous No Growth - Final Report
09/20/23 10:11 Blood Culture - Final
Blood/Venous No Growth - Final Report
09/12/23 18:05 Blood Culture - Final
Blood/Venous No Growth - Final Report
09/12/23 18:05 Influenza Types A & B (ALAN) - Final
Nasal Swab Negative for Influenza A & B, NAAT
Negative results must be combined with clinical observations
and patient history.
Nucleic Acid Amplification test (NAAT)performed on the
[employer] platform.
Imaging:
09/26/2023 CXR (portable): Persistent bibasilar atelectasis and pleural fluid. Little change from previous exams.
--- NOTE | 2023-09-29 11:38 | PN.DE.MGMTRT ---
Insulin Management
- -
09/29/2023 Diabetes Management Consult
Patient admitted 09/11 with mesenteric bypass thrombosis. H [place], cath, aortic mesenteric bypass 06/19. No history of diabetes, A1C 5.8% cr .7 eGFR > 60. Patient was on gylcemic protocol, has been transitioned to subcutaneous lantus 20 units BID
with corrective insulin Q 6 hours moderate dose.
Patient is awake and alert,able to converse. Reassured we are aware he did not have diabetes but due to condition and TPN insulin is required at this time. Will follow for needed adjustments to regimen. I spoke to patients nurse who states clear
liquids are ordered but patient is not consuming a consistent amount.
Diabetes History
- -
Pre-Admission Diabetes Regimen
09/29/23
05:09
Creatinine 0.7
Lab Results
Hemoglobin A1c 5.8 % (4.0-5.6) H 09/13/23 03:17
Insulin Pump Settings
IP Diabetes Regimen
09/28/23 09/28/23 09/28/23
13:00 17:28 21:33
Glucose
POC Glucose 121 H 150 H 187 H
09/28/23 09/29/23 09/29/23
23:52 05:09 09:00
Glucose 198 H
POC Glucose 233 H 147 H
Patient Education
[2023-09-29 11:47] LABS: Glucose - Point of Care 87 mg/dl (70-99)
--- NOTE | 2023-09-29 11:55 | CM ---
Patient seen at bedside. Patient extubated but appears confused per nursing. Per physician plan for CT scan today. Patient has son and ex who both seem to be planning to make decisions. Patient does not indicate who he would like to be primary
contact at this time. CM will continue to follow for discharge planning needs.
Plan; SNF vs Acute rehab.
[2023-09-29] MEDS: ASPIRIN 300 MG RECTAL (12:26)
[2023-09-29] MEDS: MYCAMINE 105 MG IV (12:27)
[2023-09-29] MEDS: NOVOLOG FLEXPEN-MODERATE RESISTANCE SC ×2 (12:47→17:54)
--- NOTE | 2023-09-29 12:52 | PTCARENOTE ---
patient in bed . repositioned x2 people assist . tolerating clear liquid without difficulties . 1200 bS 87/no coverage require. patient oriented to himself only. disoriented of place and time. pt is not restless. Precedex turned off. will continue
with soft restraints to b/l UE to prevent pulling A/line. CT head pending
--- NOTE | 2023-09-29 13:18 | W.PN.CRS1 ---
Today's Communication / Plan
-
clears
await EQUIPMENT ENGINEERING TECHNICIAN
out of bed with PT
Assessment/Plan
-
58-year-old male who presented with SMA thrombus/occlusion
POD #16 ex lap with SMA graft thrombectomy with patch angioplasty, complicated by worsening mesenteric ischemia and sepsis
POD #8 ex lap subtotal colectomy, left in discontinuity
POD #6 planned take back, creation of end ileostomy
1. Vitals normal. WBC 20.4. Trending down. On meropenem IV.
2. Continue CHAY drains. Right CHAY with serous fluid, left CHAY with brown fluid.
3. On a clear liquid diet. Will advance to full's once cleared by speech-language pathology. They tried to see him earlier but the patient was too lethargic. They will notify me if he is able for Full liquids.
4. Heparin drip per primary team.
5. Wound RN following.
6. SCDs for DVT prophylaxis.
7. Out of bed as tolerated. PT ordered.
Subjective Data
Procedure
09/21/2023- Exploratory laparotomy, subtotal colectomy (takedown of splenic flexure)
09/23/2023- 2nd look laparotomy and ileostomy (reopening of recent laparotomy)
Subjective Data
Date of Service: September 29, 2023
Patient states he is hungry. He denies nausea. His pain is controlled. His stoma has function.
Objective Data
-
Vital Signs
Temp Pulse Resp BP Pulse Ox
98.4 F 80 22 125/70 92
09/29/23 07:54 09/29/23 11:10 09/29/23 11:10 09/29/23 10:04 09/29/23 11:10
Intake & Output
09/28/23 09/29/23 09/30/23
06:59 06:59 06:59
Intake Total 2660.2 / 2741.2 2732.8 / 2755.1 373.8 / 373.8
Output Total 3910 / 3910 5927 / 6002 850 / 850
Balance -1249.8 / -1168.8 -3194.2 / -3246.9 -476.2 / -476.2
Intake:
Oral fluids 240 / 240
IV fluids (Total) 540.2 / 561.2 442.8 / 465.1 133.8 / 133.8
Heparin 432 / 449 359 / 375 96 / 96
Insulin 71.4 / 75.4 18.7 / 18.7
Precedex 16.8 / 16.8 65.1 / 71.4 37.8 / 37.8
fentanyl 20 / 20
IV piggybacks 350 / 350 350 / 350
TPN/PPN 1380 / 1440 1440 / 1440
Amount instilled into GI Tube ( /
Total)
[place] Sump 90 /
Blood Products 300 / 300 250 / 250
Albumin 25% 300 / 300
Packed red blood cells 250 / 250
Blood Product Amount Infused ( 250 / 250
mL)
Packed Rbc Leukoreduced Unit 250 / 250
[id number]
Output:
Liquid stool amount 50 / 50 125 / 125 50 / 50
Ileostomy 50 / 50 125 / 125 50 / 50
Drain Output (Total) 180 / 180 222 / 222 50 / 50
Left Filiberto-Roche B 120 / 120 175 / 175 30 / 30
Right Filiberto-Roche A 60 / 60 47 / 47 20 / 20
Gastrointestinal tube output ( 250 / 250
Total)
[place] Sump 250 / 250
Urine, Chavez 3430 / 3430 5580 / 5655 750 / 750
Lab Results
09/29/23 05:09
09/29/23 05:09
Physical Exam
-
General: No Acute Distress and AOx3
Abdomen: Soft, Non Distended, Non Tender and Other (Stoma warm and pink with function)
Skin: Warm and Dry
Wound: Dressing Changed
Incision: Clear, Dry, Intact
[2023-09-29 13:21] LABS: APTT 60.6 Sec (23.4-35.0)
--- NOTE | 2023-09-29 13:30 | W.PN.ONC2 ---
Today's Communication / Plan
-
With family history, post-op DVT, current UE superficial venous thrombosis, and arterial vascular disease, recommend long-term anticoagulation.
Need to verify reason for non-compliance with meds, to give him best possible chance for compliance going forward.
APLA panel negative.
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
May transition to DOAC when cleared for oral anticoagulant.
Impression
Impression
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
Outpt non-compliance with statin, Plavix, Xarelto
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
s/p ex lap, OSKAR, aorto-mesenteric bypass thrombectomy, mesenteric arteriogram, patch angioplasty of aorto-mesenteric bypass 09/13/23
Current smoker
Acute anemia
Leukocytosis
Hx DVT s/p orthopedic surgery after anticoagulation discontinued (2020)
Family hx of VTE
Superficial venous thrombosis cephalic vein
Plan
Plan
s/p 09/12 Exploratory laparotomy, lysis of adhesions, aorto-mesenteric bypass Tona thrombectomy, mesenteric arteriogram, patch angioplasty of aorto-mesenteric bypass 09/12
s/p 09/20 Exploratory laparotomy with subtotal colectomy and takedown of splenic flexure (no anastomosis or ostomy) for ischemic colon
Polycythemia at time of admission, possibly due to smoking
Persistent leukocytosis
Subjective/Objective
Chief Complaint
Heme/Onc F/U hypercoagulable state
Subjective
Extubated. Lethargic but interactive and answers questions with one-word answers.
Vital Signs:
Vital Signs
Temp Pulse Resp BP Pulse Ox
98.4 F 80 22 125/70 92
09/29/23 07:54 09/29/23 11:10 09/29/23 11:10 09/29/23 10:04 09/29/23 11:10
Lab Results:
Laboratory Data
WBC 20.4 10^3/uL (4.8-10.8) H 09/29/23 05:09
Hgb 7.9 g/dL (13.0-18.0) L 09/29/23 05:09
Plt Count 319 10^3/uL (130-400) 09/29/23 05:09
PT 17.8 Sec (11.4-14.6) H 09/13/23 03:17
INR 1.49 09/13/23 03:17
APTT 60.6 Sec (23.4-35.0) H 09/29/23 12:59
eGFR > 60.00 09/29/23 05:09
Physical Exam
Moderately ill-appearing
HEENT: Moist Mucous Membranes; No Jaundice
Cardiology: Normal Sinus Rhythm, S1 and S2
Pulmonary: Clear; No Wheezes or Rales
GI: Soft; No Distended
Extremities: No C/C/E
Neuro: Non Focal
Review of Systems
Review of Systems
No obtained due to lethargic mental status
[2023-09-29] MEDS: DILAUDID 1 MG IV (14:17)
[2023-09-29] MEDS: DUONEB INH (15:17)
--- NOTE | 2023-09-29 15:30 | PTCARENOTE ---
continues with confusing . alert to himself only. Disoriented of place and time. Prior of clear liquid intake pt denies abdominal pain . Right after clear liquid intact pt c/o of sever abdominal pain pain was relieved with Dilaudid. aldo Zuniga
notified. per new order Clear liquid on hold . pt taking for CT head via bed results pending
[2023-09-29] MEDS: SOLU-MEDROL PF 32 MG IV (16:53)
--- NOTE | 2023-09-29 17:06 | PTCARENOTE ---
patient in bed . continue to be disoriented place and time . Left A/line positioned Zero per protocol. BP via A/Line 171/66 MAP 104) viA LEG 178/85 . C/O mild abdominal pain 3/10 pain scale level. J/Ps total since 7am: RT 30 cc subsequences left J/P
48 dark to dark green . Ileostomy draining 200 total amount . mid-line abdominal incision dressing intact no drainage. PICC line RT dressing intact . TPN at 60/hr via purple lumen , Heparin at via white lumen. Next PTT schedule for 21:30; on
2L of oxygen POX 100%. occasional dry non-productive cough. NO SOB. b/l soft restraints to prevent pt pulling A/line Indwelling Chavez draining clear jovani urine. Clear liquid diet on hold until further orders HOB elevated call antonio within reach. bed
alarm activated
[2023-09-29] MEDS: APRESOLINE 10 MG IV ×2 (17:59→19:53)
[2023-09-29 18:13] LABS: Glucose - Point of Care 79 mg/dl (70-99)
--- NOTE | 2023-09-29 20:00 | PTCARENOTE ---
Rec'd pt awake, oriented to person & place, needs reorientation to time, cooperative, wrists restrained for pt safety, follows commands,BOB, NSR, left rad colin w/ good wave form, flushes well, accurate to cuff within 10mm, zeroed, B Liu, APPLICATION SPEC
aware of elevated BP, apresoline 10mg iv given, weak distal pulses, + anasarca, skin warm/dry, O2 2liters nc, lungs decr in bases, sat 97, enc to C& DB, reaches 1000 on IS, + bowel sounds, ileostomy draining brown/green liquid, R CHAY w/ ses
drainage, L CHAY w/ brown/red drainage, abd incis dsg intact, abd tender to palpation, garcía draining jovani urine, hep gtt at 1900 units/hr
[2023-09-29] MEDS: Parenteral Nutrition, Central 1440 IV (21:04)
[2023-09-29 22:04] LABS: APTT 89.4 Sec (23.4-35.0)
[2023-09-29 23:56] LABS: Glucose - Point of Care 171 mg/dl (70-99)
[2023-09-30] VITALS (19 sets, daily range): BP systolic 146–189; BP diastolic 63–96; BMI 24.0
[2023-09-30] MEDS: MORPHINE SULFATE 2 MG IV (00:22)
--- NOTE | 2023-09-30 00:24 | PTCARENOTE ---
sys reviewed, cooperative, CHG bath done, linens changed, morphine 2mg iv given for pain, abd dsg changed
[2023-09-30] MEDS: MERREM 500 MG IV ×4 (03:37→22:21)
[2023-09-30] MEDS: STERILE WATER FOR INJECTION 10 ML IV ×4 (03:37→22:21)
[2023-09-30] MEDS: APRESOLINE 10 MG IV ×2 (03:48→13:36)
[2023-09-30 03:51] LABS: Hematocrit 27.7 % (39.0-52.0); Hemoglobin 9.4 g/dL (13.0-18.0); Mean Corp Hgb Conc. 33.9 g/dL (33.0-37.0); Mean Corpuscular Hgb 29.5 pg (27.0-31.0); Mean Corpuscular Volume 86.8 fL (80.0-94.0); Mean Platelet Volume 12.8 fL (7.4-10.4); Platelet Count 350 10^3/uL (130-400); Red Blood Cell Count 3.19 10^6/uL (4.70-6.10); Red Cell Dist. Width 17.7 % (11.5-14.5); White Blood Cell Count 23.6 10^3/uL (4.8-10.8)
--- NOTE | 2023-09-30 04:00 | PTCARENOTE ---
sys reviewed, apresoline 10mg iv given for elevated bp, pt oriented, calm, but not sleeping
[2023-09-30 04:03] LABS: APTT 105.4 Sec (23.4-35.0)
[2023-09-30 04:27] LABS: ALT (SGPT) 154 U/L (0-50); AST (SGOT) 75 U/L (17-59); Albumin 2.3 g/dl (3.5-5.0); Alkaline Phosphatase 175 U/L (38-126); Blood Urea Nitrogen 34 mg/dl (9-20); Carbon Dioxide 27 mmol/L (22-30); Chloride 111 mmol/L (98-107); Estimated Creatinine Clearance 120 ml/min; Glucose 158 mg/dl (70-99); Potassium 4.4 mmol/L (3.5-5.1); Sodium 139 mmol/L (135-145); Total Bilirubin 1.8 mg/dl (0.2-1.3); Total Protein 4.9 g/dl (6.3-8.2); eGFR > 60.00
[2023-09-30] MEDS: HEPARIN 25000 UNITS/250 ML IV ×2 (04:46→19:11)
[2023-09-30] MEDS: NOVOLOG FLEXPEN-MODERATE RESISTANCE 1 UNITS SC ×3 (05:37→17:16)
[2023-09-30 05:47] LABS: Glucose - Point of Care 157 mg/dl (70-99)
[2023-09-30] MEDS: ASPIRIN 300 MG RECTAL (09:01)
[2023-09-30] MEDS: LASIX 40 MG IV (09:01)
[2023-09-30] MEDS: NSS (PRESERVATIVE FREE) 10 ML IV ×2 (09:02→20:52)
[2023-09-30] MEDS: SOLU-MEDROL PF 32 MG IV (09:02)
[2023-09-30] MEDS: PROTONIX IV 40 MG IV ×2 (09:03→20:51)
--- NOTE | 2023-09-30 09:21 | W.PN.HOSP.TC ---
Today's Communication/Plan
-
DC Rigth IJ
Consider discontinuing A-line and as well as Chavez catheter.
Diet per surgery
Out of bed to chair. Continue with PT treatments.
Continue with antibiotics and antifungal.
CW IV heparin .Follow HH.
Will consider decreasing dose of Lantus once off of TPN
Assessment / Plan
Assessment / Plan
Assessment:
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
- s/p Exploratory laparotomy, lysis of adhesions, aorto-mesenteric bypass Tona thrombectomy, mesenteric arteriogram, patch angioplasty of aorto-mesenteric bypass 09/12
- Vascular following
- CT-A 09/13 showing patient bypass, concern for bowel ischemia (see below)
Ischemic bowel c/b necrotic bowel
- CRS managing
- s/p ex-lap 09/20: Necrotic and perforated entire transverse colon, ischemic right colon and terminal ileum, ischemic left colon, ? ischemia of the proximal jejunum. 70 cm terminal colon with entire right colon, transverse colon and descending colon
removed.
- s/p 2nd look ex-lap 09/22 with Murky fluid throughout the abdomen, viable remaining small intestine with excellent Doppler signals, Haily ileostomy
- continue IV Heparin with PTT protocol
- ID following for suspected secondary peritonitis. Continue Meropenem, Micafungin.
- Hematology input about thrombophilia assessments noted - transition into DOAC once off of IV heparin and follow with office for work up.
Ventilator dependent respiratory failure/acute hypoxic respiratory failure
- extubated 09/26
- Oxygenating well on nasal cannula
Post-op shock - multifactorial from sepsis/blood loss
- pressors weaned 09/26;Hemodynamics stable
- Echo normal EF
Delirium -post op -suspected TME. Off precedex.Improved.
GI bleed related to ischemic colitis
Acute blood loss anemia
- monitor Hb
- 1 unit given 09/27
- continue PPI
Hyponatremia due to SIADH (acute on chronic - baseline Na approx 131-134) - SIADH is likely due to recent surgery, also component of volume overload
- BNP only mildly elevated
- Echo normal
- Improving weight. cw once a day IV Lasix.
Bilateral pleural effusions left greater than right
Moderate COPD/emphysema - On steroids taper for possible flare. Pulmonary managing.
CAD s/p prior hx of NSTEMI - asymptomatic without chest pain. On aspirin at home.
Hyperbilirubinemia- mostly indirect elevation, possible Gilbert's + hematomas related. Continue to follow.
Hx of DVT status post apixaban 03/2021 post left knee surgery
Chronic back pain - recent steroid taper. Continued mid back pain which is a equally troubling. No sciatica . plain xrays show loss of height of superior endplate t12,l4 . Pt had pull while lifting something at home but no fall or trauma. continue
symptomatic tx
Hyperglycemia
No hx of DM
- HbA1C 5.8
- On high doses of insulin due to combination of steroid use and TPN.
- Will down titrate as appropriate .
Tobacco abuse - remains actively smoking. Cessation recommended.
Nutrition - resumed TPN. Hypoalbuminemia severe noted.
Occlusive thrombus left arm - throughout the cephalic vein in the forearm, antecubital fossa, and distal aspect of the upper arm
- continue IV heparin
DVT ppx: IV Heparin
Code: Full
DW ER REGISTRAR
DW Tobacco Sweeper
Total time spent on today's encounter was 52 minutes which included time spent in counseling the patient regarding diagnosis and treatment plan as listed above, goals of care, and symptom management. Case was discussed with nursing staff,
specialists, All labs and imaging personally reviewed by me. Remainder the time spent in detailed review of previous records, lab data, imaging, and other medical provider documentation.
Anticipated Discharge: > 48 hours
Subjective/Interval History
-
Date of Service: September 30, 2023
He is alert and more oriented today. He knew the day and the month.
Feeling thirsty.
No nausea vomiting. Abdominal pain improved.
Denies shortness of breath.
Likes to sit out.
Objective Data
-
Labs:
Laboratory Results
09/29/23 09/30/23
21:44 03:42
WBC 23.6 H
Hgb 9.4 L
Hct 27.7 L
Plt Count 350
APTT 89.4 H 105.4 H
Sodium 139
Potassium 4.4
Chloride 111 H
Carbon Dioxide 27
BUN 34 H
Creatinine 0.7
Glucose 158 H
Calcium 8.0 L
Total Bilirubin 1.8 H
AST 75 H
ALT 154 H
Alkaline Phosphatase 175 H
Vital Signs:
Vital Signs
Temp Pulse Resp BP Pulse Ox
98.0 F 97 24 167/67 94
09/30/23 07:25 09/30/23 09:01 09/30/23 06:00 09/30/23 09:01 09/30/23 04:00
I&O
09/29/23 09/30/23 10/01/23
06:59 06:59 06:59
Intake Total 2732.8 / 2755.1 1429.8 / 1429.8
Output Total 5927 / 6002 3314 / 3314
Balance -3194.2 / -3246.9 -1884.2 / -1884.2
Review of Systems
-
Constitutional: Denies Fever
EENT: Denies Sore Throat
Respiratory: Denies Cough
Neuro: Denies Dizzy
Physical Exam
-
General: No Apparent Distress
HEENT: Moist Mucous Membranes
Respiratory: Clear to Auscultation (anteriorly)
Cardiac: Regular Rhythm and S1/S2
GI: Soft and Normal Bowel Sounds
Musculoskeletal: Edema, Right Lower Extrem and Edema, Left Lower Extrem (Much improved LE edema)
Neuro: AO x 3
Psych: Calm
Data Reviewed
-
Labs: Labs Reviewed by me
[2023-09-30] MEDS: LANTUS 0.200000000000000011 UNITS SC (09:38)
[2023-09-30 09:48] LABS: Glucose - Point of Care 161 mg/dl (70-99)
--- NOTE | 2023-09-30 10:24 | PTOTSP ---
Speech Therapy Swallowing Assessment
No overt signs of aspiration during bedside assessment with limited trials of liquid. Prompt and efficient oral retrieval/processing and swallow onset.
Recommend
1. Ok for consistency per full liquid diet. Recommend advancing textures as indicated by MD.
2. Meds with liquid
3. No need for skilled ST.
Reconsult as needed.
--- NOTE | 2023-09-30 10:41 | W.PN.ID1 ---
Date of Service
Date of Service: September 30, 2023
Today's Communication
continue meropenem/micafungin
Note and share Dr Chavez's concern that thrombectomy needed to be performed through prior graft, potentially exposing graft material to peritoneal contents; will plan for chronic suppression if feasible
Assessment / Plan
Sujatha peritonitis,
Leukocytosis
- Likely steroid component.
Total SMA graft occlusion
- s/p thrombectomy (performed through prior graft) & patch repair
Acute mesenteric ischemia
Transaminitis
Hx medication noncompliance
Recommendations:
- murky fluid was noted in the abdomen in the OR, though no perforations noted.
- blood cultures : NGTD
- wound cx: c albicans
- continue meropenem (d#11), micafungin (d#11) - eventual deescalation to suppressive oral therapies
- follow LFTs - likely elevated due to TPN
- follow clinically
Note and share Dr Chavez's concern that thrombectomy needed to be performed through prior graft, potentially exposing graft material to peritoneal contents; will plan for chronic suppression if feasible - .
����������������������������������������������������������
Chief Complaint
-: Leukocytosis and Other (secondary peritonitis)
Subjective / Review of Systems
afebrile
bp stable
persistent leukocytosis on steroid taper
hgb increased today
improving ast, overall improved alt
delining beginning
remains on TPN at this time
no complaints
Vital Signs / Physical Exam
Vital Signs
Vital Signs
Temp Pulse Resp BP Pulse Ox
98.0 F 97 24 167/67 94
09/30/23 07:25 09/30/23 09:01 09/30/23 06:00 09/30/23 09:01 09/30/23 04:00
Physical Exam
Constitutional: No Acute Distress and Chronically Ill
Cardiovascular: Regular Rate and S1/S2; Negative Murmur or Rub
Pulmonary: Clear and Symmetric; Negative Wheezes or Rales
Gastrointestinal: Soft, Non Tender, Non Distended and Normal Bowel Sounds
Skin: Warm, Dry and Other (surgical site clean, healing, no erythema/drainage/dehiscence); Negative Rash or Jaundice
Lines: PICC (no erythema/drainage/tenderness)
Objective Data
Lab Data
Lab Results
09/30/23 03:42
09/30/23 03:42
PT 17.8 Sec (11.4-14.6) H 09/13/23 03:17
INR 1.49 09/13/23 03:17
APTT 105.4 Sec (23.4-35.0) H 09/30/23 03:42
Estimated Creat Clear 120 ml/min 09/30/23 03:42
Lactic Acid 1.5 mmol/L (0.7-2.0) 09/21/23 17:38
Total Bilirubin 1.8 mg/dl (0.2-1.3) H 09/30/23 03:42
AST 75 U/L (17-59) H 09/30/23 03:42
ALT 154 U/L (0-50) H 09/30/23 03:42
Alkaline Phosphatase 175 U/L (38-126) H 09/30/23 03:42
Most recent labs reviewed.
Micro Results:
09/23/23 16:45 Body Fluid Culture - Final
Fluid Sujatha albicans
Gram Stain - Final
09/23/23 16:45 Anaerobic Culture - Final
Abdomen NO ANAEROBES ISOLATED
09/21/23 15:00 Wound Culture - Final
Abdomen Sujatha albicans
Gram Stain - Final
09/21/23 15:00 Anaerobic Culture - Final
Peritoneal Fluid NO ANAEROBES ISOLATED
09/20/23 10:03 Blood Culture - Final
Blood/Venous No Growth - Final Report
09/20/23 10:11 Blood Culture - Final
Blood/Venous No Growth - Final Report
09/12/23 18:05 Blood Culture - Final
Blood/Venous No Growth - Final Report
09/12/23 18:05 Influenza Types A & B (ALAN) - Final
Nasal Swab Negative for Influenza A & B, NAAT
Negative results must be combined with clinical observations
and patient history.
Nucleic Acid Amplification test (NAAT)performed on the
[employer] platform.
Imaging:
09/26/2023 CXR (portable): Persistent bibasilar atelectasis and pleural fluid. Little change from previous exams.
Care Review
Plan reviewed with: Physician (Dr Shefali cross)
[2023-09-30 12:14] LABS: Glucose - Point of Care 165 mg/dl (70-99)
[2023-09-30] MEDS: MYCAMINE 105 MG IV (12:16)
--- NOTE | 2023-09-30 12:34 | PN.DE.MGMTRT ---
Insulin Management
- -
09/30/2023 Diabetes Management Consult
Patient admitted 09/11 with mesenteric bypass thrombosis. PMH [place], cath, aortic mesenteric bypass 06/19. No history of diabetes, A1C 5.8% cr .7 eGFR > 60. Patient was on gylcemic protocol, has been transitioned to subcutaneous lantus 20 units BID
with corrective insulin Q 6 hours moderate dose.
Patient is awake and alert,able to converse. Reassured we are aware he did not have diabetes but due to condition and TPN insulin is required at this time. Glucose yesterday trended down to 79 yesterday, will decrease lantus to 12 units BID. I
spoke to patients nurse who states clear liquids are ordered but patient still is not consuming a consistent amount. Will follow for advanced diet and adjust insulin.
Diabetes History
- -
Pre-Admission Diabetes Regimen
09/30/23
03:42
Creatinine 0.7
Lab Results
Hemoglobin A1c 5.8 % (4.0-5.6) H 09/13/23 03:17
Insulin Pump Settings
IP Diabetes Regimen
09/29/23 09/29/23 09/30/23
17:51 23:45 03:42
Glucose 158 H
POC Glucose 79 171 H
09/30/23 09/30/23 09/30/23
05:36 09:37 12:01
Glucose
POC Glucose 157 H 161 H 165 H
Patient Education
--- NOTE | 2023-09-30 12:59 | W.PN.CRS1 ---
Today's Communication / Plan
-
full liquids
Assessment/Plan
-
58-year-old male who presented with SMA thrombus/occlusion
POD #17 ex lap with SMA graft thrombectomy with patch angioplasty, complicated by worsening mesenteric ischemia and sepsis
POD #9 ex lap subtotal colectomy, left in discontinuity
POD #7 planned take back, creation of end ileostomy
1. Vitals normal. WBC 23.6. On meropenem IV.
2. Continue CHAY drains. Right CHAY with serous fluid, left CHAY with brown fluid.
3. Cleared by ENDOSCOPY NURSE for fulls, advancing.
4. Heparin drip per primary team.
5. Wound RN following.
6. SCDs for DVT prophylaxis.
7. Out of bed as tolerated. PT ordered.
Subjective Data
Procedure
09/21/2023- Exploratory laparotomy, subtotal colectomy (takedown of splenic flexure)
09/23/2023- 2nd look laparotomy and ileostomy (reopening of recent laparotomy)
Subjective Data
Date of Service: September 30, 2023
Patient states he is not in that much pain. He did not like the clear liquids much yesterday. He is tired and sitting in a chair.
Objective Data
-
Vital Signs
Temp Pulse Resp BP Pulse Ox
98.1 F 97 24 167/67 94
09/30/23 11:05 09/30/23 09:01 09/30/23 06:00 09/30/23 09:01 09/30/23 04:00
Intake & Output
09/29/23 09/30/23 10/01/23
06:59 06:59 06:59
Intake Total 2732.8 / 2755.1 1429.8 / 1429.8
Output Total 5927 / 6002 3314 / 3314
Balance -3194.2 / -3246.9 -1884.2 / -1884.2
Intake:
Oral fluids 240 / 240
IV fluids (Total) 442.8 / 465.1 469.8 / 469.8
Heparin 359 / 375 432 / 432
Insulin 18.7 / 18.7
Precedex 65.1 / 71.4 37.8 / 37.8
IV piggybacks 350 / 350
TPN/PPN 1440 / 1440 720 / 720
Blood Products 250 / 250
Packed red blood cells 250 / 250
Blood Product Amount Infused ( 250 / 250
mL)
Packed Rbc Leukoreduced Unit 250 / 250
[id number]
Output:
Liquid stool amount 125 / 125 425 / 425
Ileostomy 125 / 125 425 / 425
Drain Output (Total) 222 / 222 94 / 94
Left Filiberto-Roche B 175 / 175 58 / 58
Right Filiberto-Roche A 47 / 47 36 / 36
Urine, Chavez 5580 / 5655 2795 / 2795
Lab Results
09/30/23 03:42
09/30/23 03:42
Physical Exam
-
General: No Acute Distress and AOx3
Abdomen: Soft, Non Distended, Non Tender and Other (colostomy warm and pink with function)
Wound: Dressing in Place
--- NOTE | 2023-09-30 13:30 | PTCARENOTE ---
pt drowsy this am , forgetful at times , pt is aware of place and month , he has appropriate conversation, forgetful at times , restless, speech therapy to eval for feeding and ok to feed, pt is tolerating a clear liquid diet , NSR on monitor , BP
hypertensive at times medicated with Apresoline as ordered , pt was oob in chair for 2 hours with assistance of wheeled walker , pt incontinent of bowel via rectum moderate amount , ileostomy is draining adequately , Chavez cath removed
--- NOTE | 2023-09-30 14:20 | W.PN.INTV ---
Today's Communication / Plan
Recommendations
Continue with postoperative care
Monitor H&H
Limit sedatives
Continue antibiotics
Advance diet as able
Physical therapy/Occupational Therapy
Continue nebulizers
Continue prednisone taper
Continue heparin drip
Transfer to telemetry
Sign off
Assessment
-
58-year-old man with past medical history noted, admitted to the emergency room with abdominal pain. Found to have bowel ischemia due to occlusion of prior aortic mesenteric bypass. Apparently patient stopped taking Plavix and statin since January
2022. Only on aspirin, emergently taken to the operating room. Transferred to the critical care unit, we were consulted for critical care management.
Impression:
- Acute respiratory failure with hypoxemia on supplemental oxygen � extubated on 09/27/2023
- Left upper extremity superficial vein thrombosis
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
- Status post exploratory laparotomy, lysis of adhesions, aortomesenteric bypass nick thrombectomy, mesenteric arteriogram, patch angioplasty of aortomesenteric bypass graft (OR date: 09-13-2023)
- Ischemic bowel c/b necrosis s/p ex-lap with subtotal colectomy with splenic flexure takedown and distal 70cm of TI also removed (OR date: 09/21/2023)
- Second look laparotomy with end-ileostomy creation (OR date: 09/23/2023)
- GI bleed - GI bleed was likely due to ischemic colitis
- Anemia due to acute blood loss, likely also in setting of bone marrow hypoproliferation
- Leukocytosis due to mesenteric ischemia
- Hyponatremia due to SIADH (acute on chronic - baseline Na approx 131-134) - SIADH is likely due to recent surgery
- Hyperglycemia - resolved
- Lactic acidosis - resolved
- Left flank ecchymosis
- Wheezing - resolved
- Bilateral pleural effusions left greater than right
Conditions present prior admission:
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
graft bypass into the celiac and SMA vessels.
Tobacco abuse
PFT's 06-19- with moderate airflow obstruction with some reversibility postbronchodilator on spirometry.-Not on bronchodilators
Moderate COPD/emphysema-not seen by pulmonary in the outpatient office for
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
History of left gastric anemic DVT status post apixaban 03/2021 post left knee surgery
History lumbar vasectomy
Chronic back pain-recent steroid taper
Plan:
Toxic metabolic encephalopathy/delirium.
Resolving.
Continue supportive care
CT head negative
Much improved today.
Following commands.
Redirectable.
Precedex has been discontinued.
-
Patient was extubated on 09/26 to nasal cannula
Wean off oxygen.
Incentive spirometer
Physical therapy
Occupational Therapy as able
-
Regarding his operative Hx:
Patient went back to the OR for laparotomy on 09/22 showing viable remaining small bowel with excellent Doppler signals, and an end-ileostomy was inserted.
Underwent colorectal surgery on 09/20 with necrotic/perforated transverse colon seen and ischemic bowel including the right colon, 70 cm of the terminal ileum and the left colon and the proximal jejunum was also becoming possibly ischemic towards the
end of the procedure.
The bowel was left in discontinuity and was divided with 1 firing of the contour stapler. The left colon was resected with the proximal end left open.
Currently on a heparin drip, follow PTT. Transition to oral anticoagulations in the future. He was not able to afford Plavix in the outpatient setting. Case management likely will need to get involved.
-
History of COPD,Not an acute exacerbation.
Continue nebulizer for secretion clearance
Prednisone taper
Patient not on any inhalers in the outpatient setting.
-
Postoperative management as per colorectal/general surgery and vascular surgery -correspondence reviewed and recommendations are appreciated
POD#16 exploratory laparotomy, lysis of adhesions, aortomesenteric bypass nick thrombectomy, mesenteric arteriogram, patch angioplasty of aortomesenteric bypass
POD#8 subtotal colectomy
Full liquids diet.
Continue TPN in meantime as well for calorie purposes
-
Antibiotics per infectious disease. Patient will need suppression therapy. Currently on micafungin and meropenem.
Follow cultures - Sujatha albicans seen on peritoneal culture from OR on 09-21-2023 + 09/23/2023
Infectious disease consultation noted-correspondence reviewed
-
Anemia:
Monitor hemoglobin
Transfuse as needed to keep Hb>7, plt>50k
Check retic index
GI evaluation-correspondence reviewed-no acute GI intervention recommended at this point
Continue PPI 40mg IV BID
Monitor renal function
Replace electrolytes as needed
Previously noted to have some hypoglycemia
Dextrose if needed
Continue TPN per surgery
Monitor liver functions, unclear etiology of elevation.
? medications
Smoking cessation counseling ongoing - not currently relevant.
DVT prophylaxis- heparin gtt
Nutrition per surgery and vascular surgery
Note: Dr. Raman reviewed with ex- at the bedside with patient's permission-reviewed case 09/20/2023
At this point, we will transfer to telemetry. Pulmonary will continue to follow briefly. Critical care team will sign off

Diagnostic Data
CXR 09-21-2023: Endotracheal tube has been inserted with tip 2.3 cm above the yue.
CXR 09-23-2023: Bibasilar opacification most likely representing subsegmental atelectasis, left greater than right.
CXR 09-24-2023: Endotracheal tube is present with its tip 5.3 cm above the yue; Evidence for bilateral pleural effusions, probably small to moderate. Adjacent parenchymal opacity within the lower lungs, most likely representing atelectasis. Small
subtle opacity in the lateral aspect of the right upper lung stable dating back to June 25, 2021, likely a small focus of scarring. Stability is reassuring that this is benign.
CXR 09-25-2023: Bibasilar opacification without significant change.
CXR 09-26-2023: Persistent bibasilar atelectasis and pleural fluid, minimal improvement in aeration compared to previous exams.
CXR 09-27-2023: Endotracheal tube and nasogastric tube remain in place, unchanged. Also unchanged is a right PICC line catheter. Stable cardiomediastinal margins. No congestive heart failure. As before, there is hazy opacity at the lung bases,
which appears stable. The mid to upper lung zones are clear. No pneumothorax.
CXR 09-28-2023: Interval removal of the endotracheal tube and enteric tube; Increased right basilar opacity, which may represent a combination of pleural fluid, atelectasis, and/or pneumonia.
CTA Abd/Pelvis with/without IV contrast 09-19-2023:
Markedly abnormal examination. No definite findings to suggest an acute retroperitoneal hemorrhage, however there is an increase in free fluid throughout the abdomen and pelvis.
There are small collections of intermediate density throughout the mesentery, concerning for small mesenteric hematomas.
Increased bilateral pleural effusions left greater than right and increased bibasilar consolidation.
As previously noted there is small bowel and large bowel wall thickening. Concerning for ischemia particularly in the transverse colon with increased stranding and inflammatory appearance.
Persistent free air and free fluid, concerning for an occult perforation, no definite site identified.
Celiac axis/SMA bypass graft similar to previous exam.
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 Chavez at 4:00 PM.
Left transversus abdominis intramuscular hematoma. Slightly increased compared to previous exam. Increased bilateral flank edema. Left greater than right. Consistent with the clinical concern for increased bruising.
CTA Abd/Pelvis with/without contrast 09-14-2023:�Moderate small bowel wall and large bowel wall thickening as described above. Ischemia cannot be excluded. Free air and free fluid in the abdomen and pelvis likely postsurgical change - new. Celiac
axis/SMA bypass graft. Moderate bibasilar consolidation - new
Chavez catheter present - new
Mild prostate hypertrophy - stable
CTA Abd/Pelvis with/without contrast 09-12-2023:
1. Complete occlusion of the celiac/SMA bypass graft as described.
2. Mild bilateral lower lobe infectious/inflammatory bronchiolitis change.
3. Mild T12 and L4 superior endplate compression deformities, new from 01/20/2023 and age indeterminate. Recommend correlation for any point tenderness in these regions.
Left Upper Extremity US 09-28-2023:
Occlusive thrombus throughout the cephalic vein in the forearm, antecubital fossa, and distal aspect of the upper arm, which is not considered a component of the deep venous system.
No other venous thrombus, including the deep venous/brachial vein.
-----
Subjective Dataa
Subjective Data
Date of Service:
Date of Service: September 30, 2023
Chief Complaint: Order Dispatcher Chief Follow Up (Status post aortomesenteric bypass occlusion.)
Subjective:
This morning he is more cooperative.
Less restless.
Following commands
Denies abdominal pain.
Denies nausea or vomiting.
Objective Data
Data Reviewed
Vital Signs / I&O / Oxygen:
Vital Signs
Temp Pulse Resp BP Pulse Ox
98.1 F 93 25 189/87 93
09/30/23 11:05 09/30/23 13:36 09/30/23 13:31 09/30/23 13:36 09/30/23 13:31
Intake and Output
09/29/23 09/30/23 10/01/23
06:59 06:59 06:59
Intake Total 2732.8 / 2755.1 1429.8 / 1508.8 1257 / 1257
Output Total 5927 / 6002 3314 / 3414 2792 / 2792
Balance -3194.2 / -3246.9 -1884.2 / -1905.2 -1535 / -1535
SaO2 [CPAP] 97
SaO2 [A/C] 95
SaO2 93
Nasal Cannula flow liters per 2
minute
Physical Exam
General: Respiratory Distress (n) and Comfortable
HEENT: Normocephalic and Anicteric
Cardiovascular: S1-S2, Regular Rhythm, Peripheral Edema (+2 lower extremity edema bilaterally with upper extremity edema (L >R)) and Other (Left radial arterial catheter in place)
Respiratory: Wheeze (negative), Crackles (negative), Rhonchi (n), Non-Labored Respirations, Accessory Resp Muscle Use (n), Stridor (n) and Other (Coarse BS b/l)
GI: Soft, Distended, Non Tender and Other (Midline bandages without active bleeding)
Neurology: Awake, Alert and AO x 3 (to self only, confused to time/place)
Skin: Warm, Dry, Cyanosis (n) and Jaundice (n)
Labs/Micro/Reports
Lab Data
09/30/23 03:42
09/30/23 03:42
Laboratory Results
09/29/23 09/30/23
21:44 03:42
APTT 89.4 H 105.4 H
Microbiology
09/23/23 16:45 Fluid Body Fluid Culture - Final
Sujatha albicans
09/23/23 16:45 Fluid Gram Stain - Final
09/23/23 16:45 Abdomen Anaerobic Culture - Final
NO ANAEROBES ISOLATED
--- NOTE | 2023-09-30 14:56 | PTCARENOTE ---
pt to start on full liquid diet , pt is now written for telemetry status , family at bedside and updated on plan of care and condition
--- NOTE | 2023-09-30 15:00 | WOUNDNOTE ---
WON RN NOTE: Patient extubated but not talking very much. Nurse Lexi confirmed that sacrum and heels are intact. Patient got oob to chair today, air cushion in use. Appliance changed, Ileostomy stoma pink and budded, peristomal skin intact.
[place] [id number] wafer and [place] [id number] pouch applied. Called [employer] for more supplies. Attempted teaching with patient on emptying and appliance change, patient disinterested at this time. Encouraged patient to watch when staff empties pouch and
assist when ready. Patient states he has someone that could come in and learn when pouch is changed next, did not say who. Will follow and attempt to do further teaching with next pouch change.
--- NOTE | 2023-09-30 15:44 | CM ---
CM following re: discharge planning.
Discussed in Rounds, reviewed pt's chart, met with pt. Per Rounds meeting, pt extubated on Friday09/27/23, doing well, room air.
PT and OT evaluations noted - SNF level of care continue to be recommended. Pt has a list of SNFs, did not come up with choices yet, asked for [facility].
CM spoke to [facility] liaison, discussed pt's request and giving the fact of pt's complicated recovery to see whether or not acute rehab can be an options. A referral to [facility] made.
CM spoke to the pt regarding his decision maker in case it needed and pt stated that his ex- will be his primary to make his health care decisions. Pt stated his twin brother and brother Francisco is very good but he lives in [place].
Pt stated his ex- lives locally and she will be the best person to make medical decisions for him if needed.
D/C plan: [facility] vs SNF.
CM will follow with discharge plan updates as hospitalization progresses
[2023-09-30 17:20] LABS: Glucose - Point of Care 181 mg/dl (70-99)
--- NOTE | 2023-09-30 18:28 | PTCARENOTE ---
BP 184/78, not due for Apresoline IV until 193 , Dr Jose notified of recent elevated BP
[2023-09-30] MEDS: CARDIZEM CD 120 MG PO (18:38)
--- NOTE | 2023-09-30 20:00 | PTCARENOTE ---
Pt received resting in bed. Pt just up to commode to have BM. AAOx1-2 (time and place). Restless. SR on the monitor. BPs elevated. Lungs clear/diminished on RA. B/L CHAY drains in place. Midline incision dressing CDI. Ileostomy putting out watery
brown/green drainage. +BS. Urinating in the urinal. Mouth care provided.
[2023-09-30] MEDS: Parenteral Nutrition, Central 1440 IV (21:00)
[2023-09-30 21:53] LABS: Glucose - Point of Care 138 mg/dl (70-99)
[2023-09-30 22:15] LABS: Glucose - Point of Care 149 mg/dl (70-99)
[2023-09-30] MEDS: LANTUS 0.119999999999999996 UNITS SC (22:20)
[2023-10-01] VITALS (20 sets, daily range): BP systolic 143–186; BP diastolic 66–125; BMI 23.7
[2023-10-01] MEDS: NOVOLOG FLEXPEN-MODERATE RESISTANCE SC ×3 (00:33→23:37)
[2023-10-01] MEDS: APRESOLINE 10 MG IV (00:40)
[2023-10-01 00:44] LABS: Glucose - Point of Care 92 mg/dl (70-99)
[2023-10-01] MEDS: MORPHINE SULFATE 2 MG IV (01:07)
[2023-10-01 03:53] LABS: Hematocrit 29.2 % (39.0-52.0); Hemoglobin 9.7 g/dL (13.0-18.0); Mean Corp Hgb Conc. 33.2 g/dL (33.0-37.0); Mean Corpuscular Hgb 32.1 pg (27.0-31.0); Mean Corpuscular Volume 96.7 fL (80.0-94.0); Mean Platelet Volume 13.2 fL (7.4-10.4); Platelet Count 307 10^3/uL (130-400); Red Blood Cell Count 3.02 10^6/uL (4.70-6.10); Red Cell Dist. Width 19.8 % (11.5-14.5); White Blood Cell Count 20.6 10^3/uL (4.8-10.8)
[2023-10-01 04:02] LABS: APTT 28.2 Sec (23.4-35.0)
[2023-10-01] MEDS: MERREM 500 MG IV ×4 (04:36→22:26)
[2023-10-01] MEDS: STERILE WATER FOR INJECTION 10 ML IV ×4 (04:37→22:26)
--- NOTE | 2023-10-01 04:45 | PTCARENOTE ---
Pt's hep gtt paused for medication administration and not restarted. PTT = 28.2 per protocol increase Heparin gtt to 2200. Per [employer] stated to follow protocol. Gtt increased to 2200. Repeat PTT ordered.
[2023-10-01 05:28] LABS: ALT (SGPT) 89 U/L (0-50); AST (SGOT) 36 U/L (17-59); Albumin 2.4 g/dl (3.5-5.0); Alkaline Phosphatase 147 U/L (38-126); Blood Urea Nitrogen 30 mg/dl (9-20); Carbon Dioxide 26 mmol/L (22-30); Chloride 109 mmol/L (98-107); Estimated Creatinine Clearance 120 ml/min; Glucose 131 mg/dl (70-99); Potassium 4.2 mmol/L (3.5-5.1); Sodium 135 mmol/L (135-145); Total Bilirubin 1.3 mg/dl (0.2-1.3); eGFR > 60.00
[2023-10-01 06:13] LABS: Glucose - Point of Care 136 mg/dl (70-99)
[2023-10-01] MEDS: CARDIZEM CD 120 MG PO (07:58)
[2023-10-01] MEDS: LANTUS 0.119999999999999996 UNITS SC ×2 (07:58→22:25)
[2023-10-01] MEDS: NSS (PRESERVATIVE FREE) 10 ML IV ×2 (07:59→20:34)
[2023-10-01] MEDS: SOLU-MEDROL PF 32 MG IV (07:59)
[2023-10-01] MEDS: LASIX 40 MG IV (07:59)
[2023-10-01] MEDS: PROTONIX IV 40 MG IV ×2 (07:59→20:35)
[2023-10-01 08:17] LABS: Glucose - Point of Care 167 mg/dl (70-99)
--- NOTE | 2023-10-01 09:43 | W.PN.HOSP.TC ---
Today's Communication/Plan
-
DC IV lasix ;use PRN
CW steroid taper per pulm
Uptitrate CCB as needed for BP
Advance diet per surgery
Assessment / Plan
Assessment / Plan
Assessment:
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
- s/p Exploratory laparotomy, lysis of adhesions, aorto-mesenteric bypass [place] thrombectomy, mesenteric arteriogram, patch angioplasty of aorto-mesenteric bypass 09/12
- Vascular following
- CT-A 09/13 showing patient bypass, concern for bowel ischemia (see below)
Ischemic bowel c/b necrotic bowel
- CRS managing
- s/p ex-lap 09/20: Necrotic and perforated entire transverse colon, ischemic right colon and terminal ileum, ischemic left colon, ? ischemia of the proximal jejunum. 70 cm terminal colon with entire right colon, transverse colon and descending colon
removed.
- s/p 2nd look ex-lap 09/22 with Murky fluid throughout the abdomen, viable remaining small intestine with excellent Doppler signals, Haily ileostomy
- continue IV Heparin with PTT protocol
- ID following for suspected secondary peritonitis. Continue Meropenem, Micafungin.
- Hematology input about thrombophilia assessments noted - transition into DOAC once off of IV heparin and follow with office for work up.
Ventilator dependent respiratory failure/acute hypoxic respiratory failure
- extubated 09/26
- Oxygenating well on nasal cannula
Post-op shock - multifactorial from sepsis/blood loss
- pressors weaned 09/26;Hemodynamics stable
- Echo normal EF
Delirium -post op -suspected TME. Off precedex.Improved.
GI bleed related to ischemic colitis
Acute blood loss anemia
- monitor Hb -stable
- 1 unit given 09/27
- continue PPI
Hyponatremia due to SIADH (acute on chronic - baseline Na approx 131-134) - SIADH is likely due to recent surgery, also component of volume overload
- BNP only mildly elevated
- Echo normal
- Improving weight.
- Wt almost at his admit wt
- change Lasix to prn wt gain
HTN - elevated BP noted .pt not a known HTN - Cardizem initiated .Uptitrate as needed
Bilateral pleural effusions left greater than right
Moderate COPD/emphysema - On steroids taper for possible flare. Pulmonary managing.
CAD s/p prior hx of NSTEMI - asymptomatic without chest pain. On aspirin at home.
Hyperbilirubinemia- mostly indirect elevation, possible Gilbert's + hematomas related. Continue to follow.
Hx of DVT status post apixaban 03/2021 post left knee surgery
Chronic back pain - recent steroid taper. Continued mid back pain which is a equally troubling. No sciatica . plain xrays show loss of height of superior endplate t12,l4 . Pt had pull while lifting something at home but no fall or trauma. continue
symptomatic tx
Hyperglycemia
No hx of DM
- HbA1C 5.8
- On high doses of insulin due to combination of steroid use and TPN.
- Will down titrate as appropriate .
Tobacco abuse - remains actively smoking. Cessation recommended.
Nutrition - on TPN and liquid diet
Occlusive thrombus left arm - throughout the cephalic vein in the forearm, antecubital fossa, and distal aspect of the upper arm
- continue IV heparin
DVT ppx: IV Heparin
Code: Full
Anticipated Discharge: > 48 hours
Subjective/Interval History
-
Date of Service: October 01, 2023
Able to tolerate liquid diet. Able to sit out of the bed in the chair yesterday for the first time.
Denies fever or chills.
Denies shortness of breath or chest pain.
Objective Data
-
Labs:
Laboratory Results
10/01/23 10/01/23 10/01/23
03:46 04:25 10:45
WBC 20.6 H
Hgb 9.7 L
Hct 29.2 L
Plt Count 307
APTT 28.2 Pending
Sodium Cancelled 135
Potassium Cancelled 4.2
Chloride Cancelled 109 H
Carbon Dioxide Cancelled 26
BUN Cancelled 30 H
Creatinine Cancelled 0.7
Glucose Cancelled 131 H
Calcium Cancelled 8.0 L
Total Bilirubin Cancelled 1.3
AST Cancelled 36
ALT Cancelled 89 H
Alkaline Phosphatase Cancelled 147 H
Vital Signs:
Vital Signs
Temp Pulse Resp BP Pulse Ox
97.9 F 89 30 165/80 95
10/01/23 07:39 10/01/23 08:09 10/01/23 08:09 10/01/23 08:09 10/01/23 08:09
I&O
09/30/23 10/01/23 10/02/23
06:59 06:59 06:59
Intake Total 1429.8 / 1508.8 1980
Output Total 3314 / 3414 3827 / 3827
Balance -1884.2 / -1905.2 -1846 / -1846
Review of Systems
-
Constitutional: Denies Fever
EENT: Denies Sore Throat
Neuro: Denies Dizzy
Physical Exam
-
General: No Apparent Distress
HEENT: Moist Mucous Membranes
Respiratory: Clear to Auscultation (Anteriorly)
Cardiac: Regular Rhythm and S1/S2
GI: Soft and Normal Bowel Sounds
Neuro: AO x 3
Psych: Calm; Negative Confused or Agitated
Data Reviewed
-
Labs: Labs Reviewed by me
[2023-10-01] MEDS: ASPIR LOW (ENTERIC COATED) 81 MG PO (10:05)
[2023-10-01] MEDS: HEPARIN 25000 UNITS/250 ML IV ×2 (10:06→23:34)
--- NOTE | 2023-10-01 10:23 | W.PN.ID1 ---
Date of Service
Date of Service: October 01, 2023
Today's Communication
- continue meropenem (d#12), micafungin (d#12) - eventual deescalation to suppressive oral therapies
- follow LFTs - likely elevated due to TPN - improved
Assessment / Plan
Sujatha peritonitis,
Leukocytosis
- Likely steroid component.
Total SMA graft occlusion
- s/p thrombectomy (performed through prior graft) & patch repair
Acute mesenteric ischemia
Transaminitis
Hx medication noncompliance
Recommendations:
- murky fluid was noted in the abdomen in the OR, though no perforations noted.
- blood cultures : NGTD
- OR cx: c albicans
- continue meropenem (d#12), micafungin (d#12) - eventual deescalation to suppressive oral therapies
- follow LFTs - likely elevated due to TPN - improved
- follow clinically
Note and share Dr Chavez's concern that thrombectomy needed to be performed through prior graft, potentially exposing graft material to peritoneal contents; will plan for chronic suppression if feasible
����������������������������������������������������������
Chief Complaint
-: Leukocytosis and Other (secondary peritonitis)
Subjective / Review of Systems
afebrile
hypertensive
slowly improving leukocytosis with steroid taper
cr stable
up in chair
no complaints
Vital Signs / Physical Exam
Vital Signs
Vital Signs
Temp Pulse Resp BP Pulse Ox
97.9 F 89 30 165/80 95
10/01/23 07:39 10/01/23 08:09 10/01/23 08:09 10/01/23 08:09 10/01/23 08:09
Physical Exam
Constitutional: No Acute Distress and Chronically Ill
Cardiovascular: Regular Rate and S1/S2; Negative Murmur or Rub
Pulmonary: Clear and Symmetric; Negative Wheezes or Rales
Gastrointestinal: Soft, Non Tender, Non Distended and Normal Bowel Sounds
Skin: Warm and Dry; Negative Rash or Jaundice
Wound: Other (surgical dressing clean, dry; ostomy pink - black liquid output)
Lines: Other (drains R serosanguinous L dark )
Objective Data
Lab Data
Lab Results
10/01/23 03:46
10/01/23 04:25
PT 17.8 Sec (11.4-14.6) H 09/13/23 03:17
INR 1.49 09/13/23 03:17
APTT 28.2 Sec (23.4-35.0) 10/01/23 03:46
Estimated Creat Clear 120 ml/min 10/01/23 04:25
Lactic Acid 1.5 mmol/L (0.7-2.0) 09/21/23 17:38
Total Bilirubin 1.3 mg/dl (0.2-1.3) 10/01/23 04:25
AST 36 U/L (17-59) 10/01/23 04:25
ALT 89 U/L (0-50) H 10/01/23 04:25
Alkaline Phosphatase 147 U/L (38-126) H 10/01/23 04:25
Most recent labs reviewed.
Micro Results:
09/23/23 16:45 Body Fluid Culture - Final
Fluid Sujatha albicans
Gram Stain - Final
09/23/23 16:45 Anaerobic Culture - Final
Abdomen NO ANAEROBES ISOLATED
09/21/23 15:00 Wound Culture - Final
Abdomen Sujatha albicans
Gram Stain - Final
09/21/23 15:00 Anaerobic Culture - Final
Peritoneal Fluid NO ANAEROBES ISOLATED
09/20/23 10:03 Blood Culture - Final
Blood/Venous No Growth - Final Report
09/20/23 10:11 Blood Culture - Final
Blood/Venous No Growth - Final Report
09/12/23 18:05 Blood Culture - Final
Blood/Venous No Growth - Final Report
09/12/23 18:05 Influenza Types A & B (ALAN) - Final
Nasal Swab Negative for Influenza A & B, NAAT
Negative results must be combined with clinical observations
and patient history.
Nucleic Acid Amplification test (NAAT)performed on the
Simple platform.
Imaging:
09/26/2023 CXR (portable): Persistent bibasilar atelectasis and pleural fluid. Little change from previous exams.
[2023-10-01] MEDS: ASPIRIN RECTAL (11:03)
[2023-10-01] MEDS: MYCAMINE 105 MG IV (11:10)
[2023-10-01] MEDS: NOVOLOG FLEXPEN-MODERATE RESISTANCE 1 UNITS SC (11:16)
--- NOTE | 2023-10-01 11:21 | W.PN.CRS1 ---
Today's Communication / Plan
-
low residue
stop tpn
Assessment/Plan
-
58-year-old male who presented with SMA thrombus/occlusion
POD #18 ex lap with SMA graft thrombectomy with patch angioplasty, complicated by worsening mesenteric ischemia and sepsis
POD #10 ex lap subtotal colectomy, left in discontinuity
POD #8 planned take back, creation of end ileostomy
1. Vitals normal. WBC 20.6. On meropenem IV.
2. Continue CHAY drains. Right CHAY with serous fluid, left CHAY with brown fluid.
3. Advance diet to low residue with Ensure. No further need for TPN.
4. Heparin drip per primary team.
5. Wound RN following.
6. SCDs for DVT prophylaxis.
7. Out of bed as tolerated. PT ordered.
Subjective Data
Procedure
09/21/2023- Exploratory laparotomy, subtotal colectomy (takedown of splenic flexure)
09/23/2023- 2nd look laparotomy and ileostomy (reopening of recent laparotomy)
Subjective Data
Date of Service: October 01, 2023
Patient states he has no nausea or vomiting. His pain is controlled. He ate fulls.
Objective Data
-
Vital Signs
Temp Pulse Resp BP Pulse Ox
98.2 F 83 24 160/70 95
10/01/23 11:20 10/01/23 10:00 10/01/23 10:00 10/01/23 10:00 10/01/23 08:09
Intake & Output
09/30/23 10/01/23 10/02/23
06:59 06:59 06:59
Intake Total 1429.8 / 1508.8 1980
Output Total 3314 / 3414 3827 / 3827 1300 / 1300
Balance -1884.2 / -1905.2 -1846 / -1846 -1300 / -1300
Intake:
Oral fluids 240 / 240 750 / 750
IV fluids (Total) 469.8 / 488.8 266 / 266
Heparin 432 / 451 266 / 266
Precedex 37.8 / 37.8
IV piggybacks 125 / 125
TPN/PPN 720 / 780 840 / 840
Output:
Liquid stool amount 425 / 425 460 / 460
Ileostomy 425 / 425 460 / 460
Drain Output (Total) 94 / 94 117 / 117
Left Filiberto-Roche B 58 / 58 110 / 110
Right Filiberto-Roche A 36 / 36 7 / 7
Urine, Chavez 2795 / 2895 2400 / 2400
Urine, Voided 850 / 850 1300 / 1300
Other:
How many times incontinent 1
SATURATED amount urine
Lab Results
10/01/23 03:46
10/01/23 04:25
Physical Exam
-
General: No Acute Distress and AOx3
Abdomen: Soft, Non Distended and Non Tender
Wound: Dressing Changed
Incision: Clear, Dry, Intact
[2023-10-01 11:25] LABS: Glucose - Point of Care 155 mg/dl (70-99)
--- NOTE | 2023-10-01 11:29 | PN.DE.MGMTRT ---
Insulin Management
- -
10/01/2023 Diabetes Management Follow up
Patient admitted 09/11 with mesenteric bypass thrombosis. PMH [place], cath, aortic mesenteric bypass 06/19. No history of diabetes, A1C 5.8% cr .7 eGFR > 60. Patient was on gylcemic protocol, has been transitioned to subcutaneous lantus 20 units BID
with corrective insulin Q 6 hours moderate dose.
Patient is awake and alert,oob in chair able to converse. Reassured we are aware he did not have diabetes but due to condition and TPN insulin is required at this time. Glucose yesterday ranged from 149 to 181. Lantus reduced to 12 units BID
started @ hs last evening, fasting glucose 136. To start prednisone taper.
I spoke to patients nurse who states lo residue diet ordered but patient still is not consuming a consistent amount. Will follow for and adjust insulin if needed.
Diabetes History
- -
Pre-Admission Diabetes Regimen
10/01/23 10/01/23
03:46 04:25
Creatinine Cancelled 0.7
Lab Results
Hemoglobin A1c 5.8 % (4.0-5.6) H 09/13/23 03:17
Insulin Pump Settings
IP Diabetes Regimen
09/30/23 09/30/23 09/30/23
12:01 17:10 21:42
Glucose
POC Glucose 165 H 181 H 138 H
09/30/23 10/01/23 10/01/23
22:04 00:33 03:46
Glucose Cancelled
POC Glucose 149 H 92
10/01/23 10/01/23 10/01/23
04:25 05:58 08:06
Glucose 131 H
POC Glucose 136 H 167 H
10/01/23
11:14
Glucose
POC Glucose 155 H
Meal type: Breakfast
Amount consumed: Patient refused
Patient Education
--- NOTE | 2023-10-01 12:20 | PTCARENOTE ---
pt received resting in bed aox1-2, able to ask questions and follow commands approriately. tpn and heparin gtt continue. right picc with good blood return. pt assisted with full bed bath, oob to chair for one hour. midline incision with dressing
intact. left lexx drain with brown drainage, right with minimal serosanginous. pt using urinal. right ileostomy with minimal output, stoma pink. all safety precautions in place. nsr and room air. call antonio within reach.
--- NOTE | 2023-10-01 14:13 | W.PN.INTV ---
Today's Communication / Plan
Recommendations
Continue with nebulizers while in the hospital
Incentive spirometry
Outpatient pulmonary follow-up
Complete prednisone taper as written
Sign off
Assessment
-
58-year-old man with past medical history noted, admitted to the emergency room with abdominal pain. Found to have bowel ischemia due to occlusion of prior aortic mesenteric bypass. Apparently patient stopped taking Plavix and statin since January
2022. Only on aspirin, emergently taken to the operating room. Transferred to the critical care unit, we were consulted for critical care management.
Impression:
- Acute respiratory failure with hypoxemia on supplemental oxygen � extubated on 09/27/2023
- Left upper extremity superficial vein thrombosis
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
- Status post exploratory laparotomy, lysis of adhesions, aortomesenteric bypass nick thrombectomy, mesenteric arteriogram, patch angioplasty of aortomesenteric bypass graft (OR date: 09-13-2023)
- Ischemic bowel c/b necrosis s/p ex-lap with subtotal colectomy with splenic flexure takedown and distal 70cm of TI also removed (OR date: 09/21/2023)
- Second look laparotomy with end-ileostomy creation (OR date: 09/23/2023)
- GI bleed - GI bleed was likely due to ischemic colitis
- Anemia due to acute blood loss, likely also in setting of bone marrow hypoproliferation
- Leukocytosis due to mesenteric ischemia
- Hyponatremia due to SIADH (acute on chronic - baseline Na approx 131-134) - SIADH is likely due to recent surgery
- Hyperglycemia - resolved
- Lactic acidosis - resolved
- Left flank ecchymosis
- Wheezing - resolved
- Bilateral pleural effusions left greater than right
Conditions present prior admission:
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
graft bypass into the celiac and SMA vessels.
Tobacco abuse
PFT's 06-19-21 with moderate airflow obstruction with some reversibility postbronchodilator on spirometry.-Not on bronchodilators
Moderate COPD/emphysema-not seen by pulmonary in the outpatient office for
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
History of left gastric anemic DVT status post apixaban 03/2021 post left knee surgery
History lumbar vasectomy
Chronic back pain-recent steroid taper
Plan:
Respiratory condition is a stable at this point.
History of COPD,Not an acute exacerbation. Not bronchospastic on exam.
Continue nebulizer for secretion clearance while in the hospital.
Oxygen has been weaned off
Prednisone taper, continue for now.
Patient not on any inhalers in the outpatient setting.
It is recommended that this patient follow-up in the outpatient for COPD evaluation.
Continue incentive spirometry
Increase activity as able, physical therapy/Occupational Therapy.
Smoking cessation encouraged.
-
Toxic metabolic encephalopathy/delirium.
Resolving
Management per primary team.
-
Continue postoperative management as per colorectal/general surgery and vascular surgery -correspondence reviewed and recommendations are appreciated
POD#16 exploratory laparotomy, lysis of adhesions, aortomesenteric bypass nick thrombectomy, mesenteric arteriogram, patch angioplasty of aortomesenteric bypass
POD#8 subtotal colectomy
Full liquids diet.
Nutrition per surgery and vascular surgery, Continue TPN in meantime as well for calorie purposes
-
Antibiotics per infectious disease. Patient will need suppression therapy. Currently on micafungin and meropenem.
Follow cultures - Sujatha albicans seen on peritoneal culture from OR on 09-21-2023 + 09/23/2023
Infectious disease consultation noted-correspondence reviewed
-
Anemia: Stable, continue to monitor per
Continue TPN per surgery
DVT prophylaxis- heparin gtt
Note: Dr. Raman reviewed with ex- at the bedside with patient's permission-reviewed case 09/20/2023
No additional critical care needs.
Pulmonary will sign off at this point.
Please call with question.

Diagnostic Data
CXR 09-21-2023: Endotracheal tube has been inserted with tip 2.3 cm above the yue.
CXR 09-23-2023: Bibasilar opacification most likely representing subsegmental atelectasis, left greater than right.
CXR 09-24-2023: Endotracheal tube is present with its tip 5.3 cm above the yue; Evidence for bilateral pleural effusions, probably small to moderate. Adjacent parenchymal opacity within the lower lungs, most likely representing atelectasis. Small
subtle opacity in the lateral aspect of the right upper lung stable dating back to June 25, 2021, likely a small focus of scarring. Stability is reassuring that this is benign.
CXR 09-25-2023: Bibasilar opacification without significant change.
CXR 09-26-2023: Persistent bibasilar atelectasis and pleural fluid, minimal improvement in aeration compared to previous exams.
CXR 09-27-2023: Endotracheal tube and nasogastric tube remain in place, unchanged. Also unchanged is a right PICC line catheter. Stable cardiomediastinal margins. No congestive heart failure. As before, there is hazy opacity at the lung bases,
which appears stable. The mid to upper lung zones are clear. No pneumothorax.
CXR 09-28-2023: Interval removal of the endotracheal tube and enteric tube; Increased right basilar opacity, which may represent a combination of pleural fluid, atelectasis, and/or pneumonia.
CTA Abd/Pelvis with/without IV contrast 09-19-2023:
Markedly abnormal examination. No definite findings to suggest an acute retroperitoneal hemorrhage, however there is an increase in free fluid throughout the abdomen and pelvis.
There are small collections of intermediate density throughout the mesentery, concerning for small mesenteric hematomas.
Increased bilateral pleural effusions left greater than right and increased bibasilar consolidation.
As previously noted there is small bowel and large bowel wall thickening. Concerning for ischemia particularly in the transverse colon with increased stranding and inflammatory appearance.
Persistent free air and free fluid, concerning for an occult perforation, no definite site identified.
Celiac axis/SMA bypass graft similar to previous exam.
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 Chavez at 4:00 PM.
Left transversus abdominis intramuscular hematoma. Slightly increased compared to previous exam. Increased bilateral flank edema. Left greater than right. Consistent with the clinical concern for increased bruising.
CTA Abd/Pelvis with/without contrast 09-14-2023:�Moderate small bowel wall and large bowel wall thickening as described above. Ischemia cannot be excluded. Free air and free fluid in the abdomen and pelvis likely postsurgical change - new. Celiac
axis/SMA bypass graft. Moderate bibasilar consolidation - new
Chavez catheter present - new
Mild prostate hypertrophy - stable
CTA Abd/Pelvis with/without contrast 09-12-2023:
1. Complete occlusion of the celiac/SMA bypass graft as described.
2. Mild bilateral lower lobe infectious/inflammatory bronchiolitis change.
3. Mild T12 and L4 superior endplate compression deformities, new from 01/20/2023 and age indeterminate. Recommend correlation for any point tenderness in these regions.
Left Upper Extremity US 09-28-2023:
Occlusive thrombus throughout the cephalic vein in the forearm, antecubital fossa, and distal aspect of the upper arm, which is not considered a component of the deep venous system.
No other venous thrombus, including the deep venous/brachial vein.
-----
Subjective Dataa
Subjective Data
Date of Service:
Date of Service: October 01, 2023
Chief Complaint: Pulmonary Follow Up
Subjective:
Normal pulmonary following. Continues to have occasional coughing.
Denies shortness of breath at rest.
No significant phlegm production.
Review of Systems
General: Fever (n)
Cardiopulmonary: Dyspnea (none at rest)
GI: Abdominal Pain (n)
Objective Data
Data Reviewed
Vital Signs / I&O / Oxygen:
Vital Signs
Temp Pulse Resp BP Pulse Ox
98.2 F 77 21 145/69 95
10/01/23 11:20 10/01/23 13:00 10/01/23 13:00 10/01/23 12:22 10/01/23 11:35
Intake and Output
09/30/23 10/01/23 10/02/23
06:59 06:59 06:59
Intake Total 1429.8 / 1508.8 1980
Output Total 3314 / 3414 3827 / 3827 1840 / 1840
Balance -1884.2 / -1905.2 -1846 / -1846 -1840 / -1840
SaO2 [CPAP] 97
SaO2 [A/C] 95
SaO2 95
Nasal Cannula flow liters per 2
minute
Physical Exam
General: Respiratory Distress (n) and Comfortable
HEENT: Normocephalic and Anicteric
Cardiovascular: S1-S2, Regular Rhythm, Peripheral Edema (+2 lower extremity edema bilaterally with upper extremity edema (L >R)) and Other (Left radial arterial catheter in place)
Respiratory: Wheeze (negative), Crackles (negative), Rhonchi (n), Non-Labored Respirations, Accessory Resp Muscle Use (n), Stridor (n) and Other (Coarse BS b/l)
GI: Soft, Distended, Non Tender and Other (Midline bandages without active bleeding)
Neurology: Awake, Alert and No Motor Deficits
Skin: Warm, Dry, Cyanosis (n) and Jaundice (n)
Labs/Micro/Reports
Lab Data
10/01/23 03:46
10/01/23 04:25
Laboratory Results
10/01/23 10/01/23
10:21
APTT 28.2 86.0 H
--- NOTE | 2023-10-01 14:39 | CM ---
Addendum entered by Sang Benitez 10/01/23 14:46:
Pt's ex- stated she spoke to pt's employer director of rehabilitation Tiesha and was told that an application for a short term disability has been approved and pt is getting a check.
Original Note:
CM following re: discharge planning.
Discussed in Rounds, reviewed pt's chart, met with pt and pt's ex- at bedside. Per Rounds meeting, pt is doing well and will be downgraded from ICU level of care.
Pt stated again he appointed his ex- Mirian as decision maker and pt stated as soon he will get better, returns back home he and his ex- will be again together and they will be re-.
Both pt and his ex- expressed their great desire for pt to go to [facility] and CM explained admitting criteria. Pt stated if [facility] will not be an option then [facility] is the option. Pt stated his mother is a [facility] resident at [facility]
and he will prefer only [facility].
[facility] counselor following.
A referral to [facility] made.
D/C plan: Plan A: [facility]. Plan B: [facility].
CM will follow with discharge plan updates as hospitalization progresses
[2023-10-01] MEDS: NOVOLOG FLEXPEN-MODERATE RESISTANCE 5 UNITS SC (16:42)
[2023-10-01 16:52] LABS: Glucose - Point of Care 252 mg/dl (70-99)
[2023-10-01 17:16] LABS: APTT 124.7 Sec (23.4-35.0)
[2023-10-01 22:39] LABS: Glucose - Point of Care 194 mg/dl (70-99)
--- NOTE | 2023-10-01 23:40 | PTCARENOTE ---
TPN completed. PTT 109.2. Hepp gtt @ 2000units/hr. illeostomy emptied for 200cc's of brown stool. CHAY drains intact. pt offers no complaints. Will monitor.
[2023-10-01 23:50] LABS: APTT 109.2 Sec (23.4-35.0)
[2023-10-02] VITALS (13 sets, daily range): BP systolic 125–185; BP diastolic 62–91; PULSE 75–79; O2SAT 95; BMI 22.9
[2023-10-02] MEDS: STERILE WATER FOR INJECTION 10 ML IV (04:50)
[2023-10-02] MEDS: MERREM 500 MG IV (04:50)
[2023-10-02 05:36] LABS: Hematocrit 27.3 % (39.0-52.0); Hemoglobin 9.1 g/dL (13.0-18.0); Mean Corp Hgb Conc. 33.3 g/dL (33.0-37.0); Mean Corpuscular Hgb 30.2 pg (27.0-31.0); Mean Corpuscular Volume 90.7 fL (80.0-94.0); Mean Platelet Volume 12.8 fL (7.4-10.4); Platelet Count 283 10^3/uL (130-400); Red Blood Cell Count 3.01 10^6/uL (4.70-6.10); Red Cell Dist. Width 18.5 % (11.5-14.5); White Blood Cell Count 21.2 10^3/uL (4.8-10.8)
[2023-10-02 05:56] LABS: APTT 118.3 Sec (23.4-35.0)
[2023-10-02 06:12] LABS: Blood Urea Nitrogen 30 mg/dl (9-20); Calcium 7.9 mg/dl (8.4-10.2); Carbon Dioxide 25 mmol/L (22-30); Chloride 104 mmol/L (98-107); Estimated Creatinine Clearance 118 ml/min; Glucose 92 mg/dl (70-99); Potassium 4.2 mmol/L (3.5-5.1); Sodium 134 mmol/L (135-145); eGFR > 60.00
[2023-10-02 07:57] LABS: Glucose - Point of Care 77 mg/dl (70-99)
[2023-10-02] MEDS: CARDIZEM CD 120 MG PO (08:02)
[2023-10-02] MEDS: DELTASONE 30 MG PO (08:02)
[2023-10-02] MEDS: ASPIR LOW (ENTERIC COATED) 81 MG PO (08:03)
[2023-10-02] MEDS: NSS (PRESERVATIVE FREE) 10 ML IV (08:03)
[2023-10-02] MEDS: PROTONIX IV 40 MG IV (08:04)
[2023-10-02] MEDS: LANTUS SC (08:30)
[2023-10-02] MEDS: DUONEB 3 ML INH (08:33)
--- NOTE | 2023-10-02 08:36 | W.PN.ID1 ---
Date of Service
Date of Service: October 02, 2023
Today's Communication
- start augmentin as suppression, continue micafungin for now (d#13)
Assessment / Plan
Sujatha peritonitis,
Leukocytosis
- Likely steroid component.
Total SMA graft occlusion
- s/p thrombectomy (performed through prior graft) & patch repair
Acute mesenteric ischemia
Transaminitis
Hx medication noncompliance
Recommendations:
- on a long steroid taper, expect leukocytosis to persists
- OR cx: c albicans
- start augmentin as suppression, continue micafungin for now (d#13)
- follow clinically
Note and share Dr Chavez's concern that thrombectomy needed to be performed through prior graft, potentially exposing graft material to peritoneal contents; will plan for chronic suppression if feasible
����������������������������������������������������������
Chief Complaint
-: Leukocytosis and Other (secondary peritonitis)
Subjective / Review of Systems
afebrile
bp stable
persistent leukocytosis noted - steroids tapering
cr stable
tolerating current therapies
Vital Signs / Physical Exam
Vital Signs
Vital Signs
Temp Pulse Resp BP Pulse Ox
98.7 F 72 20 149/62 95
10/02/23 07:33 10/02/23 08:34 10/02/23 08:34 10/02/23 08:02 10/02/23 08:00
Physical Exam
Constitutional: No Acute Distress
Cardiovascular: Regular Rate and S1/S2; Negative Murmur or Rub
Pulmonary: Clear and Symmetric; Negative Wheezes or Rales
Gastrointestinal: Soft, Non Tender, Non Distended and Normal Bowel Sounds
Skin: Warm and Dry; Negative Rash or Jaundice
Lines: PICC
Objective Data
Lab Data
Lab Results
10/02/23 05:29
10/02/23 05:29
PT 17.8 Sec (11.4-14.6) H 09/13/23 03:17
INR 1.49 09/13/23 03:17
APTT Cancelled 10/02/23 12:00
Estimated Creat Clear 118 ml/min 10/02/23 05:29
Lactic Acid 1.5 mmol/L (0.7-2.0) 09/21/23 17:38
Total Bilirubin 1.3 mg/dl (0.2-1.3) 10/01/23 04:25
AST 36 U/L (17-59) 10/01/23 04:25
ALT 89 U/L (0-50) H 10/01/23 04:25
Alkaline Phosphatase 147 U/L (38-126) H 10/01/23 04:25
Most recent labs reviewed.
Micro Results:
09/23/23 16:45 Body Fluid Culture - Final
Fluid Sujatha albicans
Gram Stain - Final
09/23/23 16:45 Anaerobic Culture - Final
Abdomen NO ANAEROBES ISOLATED
09/21/23 15:00 Wound Culture - Final
Abdomen Sujatha albicans
Gram Stain - Final
09/21/23 15:00 Anaerobic Culture - Final
Peritoneal Fluid NO ANAEROBES ISOLATED
09/20/23 10:03 Blood Culture - Final
Blood/Venous No Growth - Final Report
09/20/23 10:11 Blood Culture - Final
Blood/Venous No Growth - Final Report
09/12/23 18:05 Blood Culture - Final
Blood/Venous No Growth - Final Report
09/12/23 18:05 Influenza Types A & B (ALAN) - Final
Nasal Swab Negative for Influenza A & B, NAAT
Negative results must be combined with clinical observations
and patient history.
Nucleic Acid Amplification test (NAAT)performed on the
[employer] platform.
Imaging:
09/26/2023 CXR (portable): Persistent bibasilar atelectasis and pleural fluid. Little change from previous exams.
--- NOTE | 2023-10-02 08:41 | W.PN.HOSP.TC ---
Today's Communication/Plan
-
Continue with PT OT
Transition to oral Eliquis
Continue with antimicrobial sobriety
DC planning
Assessment / Plan
Assessment / Plan
Assessment:
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
- s/p Exploratory laparotomy, lysis of adhesions, aorto-mesenteric bypass Tona thrombectomy, mesenteric arteriogram, patch angioplasty of aorto-mesenteric bypass 09/12
- CT-A 09/13 showing patient bypass, concern for bowel ischemia (see below)
Ischemic bowel c/b necrotic bowel
- CRS managing
- s/p ex-lap 09/20: Necrotic and perforated entire transverse colon, ischemic right colon and terminal ileum, ischemic left colon, ? ischemia of the proximal jejunum. 70 cm terminal colon with entire right colon, transverse colon and descending colon
removed.
- s/p 2nd look ex-lap 09/22 with Murky fluid throughout the abdomen, viable remaining small intestine with excellent Doppler signals, Haily ileostomy
-Transition anticoagulation to oral Eliquis
- ID following for suspected secondary peritonitis. Continue Meropenem, Micafungin.
- Hematology input about hypercoagulable assessments noted -continue with anticoagulant and follow with office for work up.
Persistent neutrophilia-no changes to leukocytosis despite improving clinical improvement. I doubt still reactive to intra-abdominal infection. Patient on meropenem and micafungin. Currently on tapering steroids. Continue to follow and if
persistent despite coming off steroids look for myeloproliferative issues.
Ventilator dependent respiratory failure/acute hypoxic respiratory failure
- extubated 09/26
- Oxygenating well on nasal cannula
Post-op shock - multifactorial from sepsis/blood loss
- pressors weaned 09/26;Hemodynamics stable
- Echo normal EF
Delirium -post op -suspected TME. Off precedex.resolved
GI bleed related to ischemic colitis
Acute blood loss anemia
- monitor Hb -stable
- 1 unit given 09/27
- continue PPI
Hyponatremia due to SIADH (acute on chronic - baseline Na approx 131-134) - SIADH is likely due to recent surgery, also component of volume overload
- BNP only mildly elevated
- Echo normal
- Wt almost at his admit wt
- change Lasix to prn wt gain
HTN - elevated BP noted .pt not a known HTN - Cardizem initiated .Uptitrate as needed. Blood pressure mostly under goal.
Bilateral pleural effusions left greater than right
Moderate COPD/emphysema - On steroids taper for possible flare. Pulmonary managing.
CAD s/p prior hx of NSTEMI - asymptomatic without chest pain. On aspirin at home.
Hyperbilirubinemia- mostly indirect elevation, possible Gilbert's + hematomas related. Continue to follow.
Hx of DVT status post apixaban 03/2021 post left knee surgery
Chronic back pain - recent steroid taper. Continued mid back pain which is a equally troubling. No sciatica . plain xrays show loss of height of superior endplate t12,l4 . Pt had pull while lifting something at home but no fall or trauma. continue
symptomatic tx
Hyperglycemia
No hx of DM
- HbA1C 5.8
- On high doses of insulin due to combination of steroid use and TPN.
- Will down titrate as appropriate .
Tobacco abuse - remains actively smoking. Cessation recommended.
Nutrition - on TPN and liquid diet
Occlusive thrombus left arm - throughout the cephalic vein in the forearm, antecubital fossa, and distal aspect of the upper arm
- continue anticoagulation
DVT ppx: IV Heparin
Code: Full
Anticipated Discharge: > 48 hours
Subjective/Interval History
-
Date of Service: October 02, 2023
Patient feeling slow improvement. Tolerating solid diet. Off of TPN. Was able to sit out of the chair for the first time yesterday. Ostomy output noted. Not much of abdominal incisional pain now.
Objective Data
-
Labs:
Laboratory Results
10/01/23 10/02/23 10/02/23
23:31 05:29 12:00
WBC 21.2 H
Hgb 9.1 L
Hct 27.3 L
Plt Count 283
APTT 109.2 H 118.3 H Cancelled
Sodium 134 L
Potassium 4.2
Chloride 104
Carbon Dioxide 25
BUN 30 H
Creatinine 0.7
Glucose 92
Calcium 7.9 L
10/02/23
12:30
WBC
Hgb
Hct
Plt Count
APTT Pending
Sodium
Potassium
Chloride
Carbon Dioxide
BUN
Creatinine
Glucose
Calcium
Vital Signs:
Vital Signs
Temp Pulse Resp BP Pulse Ox
98.7 F 72 20 149/62 95
10/02/23 07:33 10/02/23 08:34 10/02/23 08:34 10/02/23 08:02 10/02/23 08:00
I&O
10/01/23 10/02/23 10/03/23
06:59 06:59 06:59
Intake Total 1980 / 1980 1625 / 1625 36 / 36
Output Total 3827 / 3827 3580 / 3580 475 / 475
Balance -1846 / -1846 -1955 / -195 -439 / -439
Review of Systems
-
Constitutional: Denies Fever
EENT: Denies Sore Throat
Respiratory: Denies Cough or Trouble Breathing
Cardiac: Denies Chest Pain
Neuro: Denies Dizzy
Physical Exam
-
General: No Apparent Distress
HEENT: Moist Mucous Membranes
Respiratory: Clear to Auscultation
Cardiac: Regular Rhythm and S1/S2
GI: Soft, Nontender, Normal Bowel Sounds and Ostomy
Neuro: AO x 3
Psych: Calm
Data Reviewed
-
Labs: Labs Reviewed by me
--- NOTE | 2023-10-02 09:12 | PN.DE.MGMTRT ---
Insulin Management
- -
10/02/2023 Diabetes Management Follow up
Patient admitted 09/11 with mesenteric bypass thrombosis. [facility], cath, aortic mesenteric bypass 06/19. No history of diabetes, A1C 5.8% cr .7 eGFR > 60. Patient was on gylcemic protocol, has been transitioned to subcutaneous lantus 20 units BID
with corrective insulin Q 6 hours moderate dose.
Patient is awake and alert, eating breakfast, able to converse. Glucose yesterday ranged from 136 to 252. Lantus was reduced to 12 units BID, fasting glucose 77. To start prednisone taper, currently 30 mg daily.
I spoke to patients nurse who states patient appetite is poor, did have some yogurt and potatoes. Will hold AM lantus, nurse to report pre lunch glucose for possible need for AM lantus dose.
Diabetes History
- -
Pre-Admission Diabetes Regimen
10/02/23
05:29
Creatinine 0.7
Lab Results
Hemoglobin A1c 5.8 % (4.0-5.6) H 09/13/23 03:17
Insulin Pump Settings
IP Diabetes Regimen
10/01/23 10/01/23 10/01/23
11:14 16:41 22:28
Glucose
POC Glucose 155 H 252 H 194 H
10/02/23 10/02/23
05:29 07:46
Glucose 92
POC Glucose 77
Patient Education
--- NOTE | 2023-10-02 09:20 | W.PN.ONC ---
Today's Communication / Plan
-
Reactive leukocytosis presumed
Stable anemia hemoglobin 9.1 g/dL
Polycythemia at time of admission, possibly due to smoking
Continue anticoagulation currently on heparin
Impression
Impression
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
Outpt non-compliance with statin, Plavix, Xarelto
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
s/p ex lap, OSKAR, aorto-mesenteric bypass thrombectomy, mesenteric arteriogram, patch angioplasty of aorto-mesenteric bypass 09/13/23
Current smoker
Acute anemia
Leukocytosis
Hx DVT s/p orthopedic surgery after anticoagulation discontinued (2020)
Family hx of VTE
Superficial venous thrombosis cephalic vein
Subjective/Objective
Subjective/Objective
Patient doing well no new abdominal pain. Anticipate downgrade to telemetry.
Vital Signs:
Vital Signs
Temp Pulse Resp BP Pulse Ox
98.7 F 72 20 149/62 95
10/02/23 07:33 10/02/23 08:34 10/02/23 08:34 10/02/23 08:02 10/02/23 08:00
HEENT: Extubated since my last evaluation
Heart: Regular
Lungs: Clear without rales or rhonchi
Extremities: Without asymmetry.
Lab Results:
Laboratory Data
WBC 21.2 10^3/uL (4.8-10.8) H 10/02/23 05:29
Hgb 9.1 g/dL (13.0-18.0) L 10/02/23 05:29
Plt Count 283 10^3/uL (130-400) 10/02/23 05:29
PT 17.8 Sec (11.4-14.6) H 09/13/23 03:17
INR 1.49 09/13/23 03:17
APTT Cancelled 10/02/23 12:00
eGFR > 60.00 10/02/23 05:29
[2023-10-02] MEDS: AUGMENTIN 875 MG/125 MG 1 TABLET PO ×2 (09:40→19:52)
[2023-10-02] MEDS: ELIQUIS 5 MG PO ×2 (09:40→19:53)
--- NOTE | 2023-10-02 10:08 | PTCARENOTE ---
Recd pt 0715 tele level awaiting tele bed. Assessment as noted, flat, pleasant, interactive, very dry sense of humor. Agreeable to plan of care, ordered and eating breakfast, lantus held per Dr. 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 Wheezing
noted, faint, requested and received neb. Seen by Damon Iqbal, and Xiomara Hogue. OOB to bathroom to brush teeth then to recliner. Positioned for comfort. Using IS, 1000 ml. Exhausted and 'weak' with activity. Gait steady, rolling walker
in use. CHAY drain R removed by surgery, dressing applied. ABD to abdomen, scant drainage upper part of incis. Ruthann otherwise intact. JPs measured, emptied, recorded. Ileost emptied x 2 so far for liquid drainage. Med orders noted, recd
eliquis; heparin gtt dcd per order.
--- NOTE | 2023-10-02 10:47 | W.PN.CRS1 ---
Today's Communication / Plan
-
right drain removed
tolerating a diet - no further TPN
okay to restart eliquis from our perpsective
Assessment/Plan
-
58-year-old male who presented with SMA thrombus/occlusion
POD #19 ex lap with SMA graft thrombectomy with patch angioplasty, complicated by worsening mesenteric ischemia and sepsis
POD #11 ex lap subtotal colectomy, left in discontinuity
POD #9 planned take back, creation of end ileostomy
1. Vitals normal. WBC 21.2. On IV antibiotics.
2. Right CHAY drain discontinued. Continue left CHAY drain.
3. Advance diet to low residue with Ensure. No further need for TPN.
4. Heparin drip per primary team. Okay to restart Eliquis from our perspective.
5. Wound RN following.
6. SCDs for DVT prophylaxis.
7. Out of bed as tolerated. PT ordered.
Subjective Data
Procedure
09/21/2023- Exploratory laparotomy, subtotal colectomy (takedown of splenic flexure)
09/23/2023- 2nd look laparotomy and ileostomy (reopening of recent laparotomy)
Subjective Data
Date of Service: October 02, 2023
Patient states he is eating 'okay'. His pain is being managed. He would like to go home.
Objective Data
-
Vital Signs
Temp Pulse Resp BP Pulse Ox
98.7 F 73 15 149/62 95
10/02/23 07:33 10/02/23 09:00 10/02/23 09:00 10/02/23 08:02 10/02/23 08:00
Intake & Output
10/01/23 10/02/23 10/03/23
06:59 06:59 06:59
Intake Total 1980 / 1980 1625 / 1625 414 / 414
Output Total 3827 / 3827 3580 / 3580 905 / 905
Balance -1846 / -1846 -1955 / -1955 -491 / -491
Intake:
Oral fluids 750 / 750 480 / 480 360 / 360
IV fluids (Total) 266 / 266 440 / 440 54 / 54
Heparin 266 / 266 440 / 440 54 / 54
IV piggybacks 125 / 125 105 / 105
TPN/PPN 840 / 840 600 / 600
Output:
Liquid stool amount 460 / 460 600 / 600 550 / 550
Ileostomy 460 / 460 600 / 600 550 / 550
Drain Output (Total) 117 / 117 380 / 380 105 / 105
Left Filiberto-Roche B 110 / 110 365 / 365 95 / 95
Right Filiberto-Roche A 7 / 7 15 / 15 10 / 10
Urine, Chavez 2400 / 2400
Urine, Voided 850 / 850 2600 / 2600 250 / 250
Other:
How many times incontinent 1
SATURATED amount urine
Lab Results
10/02/23 05:29
10/02/23 05:29
Physical Exam
-
General: No Acute Distress and AOx3
Abdomen: Soft, Non Distended, Non Tender and Other (ileostomy warm and pink with function. Right CHAY drain serous, Left CHAY drain with brown discharge. )
Incision: Clear, Dry, Intact
[2023-10-02 11:42] LABS: Glucose - Point of Care 100 mg/dl (70-99)
[2023-10-02] MEDS: MYCAMINE 105 MG IV (12:18)
[2023-10-02] MEDS: APRESOLINE 10 MG IV (12:22)
--- NOTE | 2023-10-02 14:31 | CM ---
CM following re: discharge planning.
Reviewed pt's chart, met with pt.
CM spoke to [facility] manager and she confirmed that pt is meeting criteria for an acute level of rehab. PM&R consult requested.
D/C plan: [facility] when medically stable. Plan B still in place: [facility] if for some reason [facility] referral failed.
CM will follow to assist pt with discharge to [facility].
--- NOTE | 2023-10-02 15:08 | WOUNDNOTE ---
[facility] RN NOTE: Met with patient briefly today. Plan is for ostomy teaching tomorrow. Patient stated he would like if ex-, Mirian could be involved with ostomy teaching. He gave permission to this underwriter to contact Mirian and message was left
on voicemail.
--- NOTE | 2023-10-02 18:00 | PTCARENOTE ---
rest of shift continuing with encouragement, IS, OOB, family visiting at times. in better spirits overall, occas tearful. support given and some instruction and demo re: iliost supplies. appetite improving.
--- NOTE | 2023-10-02 20:00 | PTCARENOTE ---
Patient received in bed, AAOx3, BOB, offers no complaints, pleasant. NSR on monitor, afebrile, blood pressure as documented. Palpable pulses throughout, trace anasarca noted. Knee high SCDs maintained. Lungs diminished bibasilar, pulse ox 96% on
room air. Abdomen soft with positive bowel sounds. Illeostomy draining liquid brown stool. Voiding yellow urine. Midline abdominal dressing intact, RLQ dressing intact, Left CHAY draining brown. RDL PICC flushed and patent. Plan of care
discussed, call antonio within reach
[2023-10-03] VITALS (7 sets, daily range): BP systolic 127–167; BP diastolic 73–87
--- NOTE | 2023-10-03 03:28 | PTCARENOTE ---
Patient dozing intermittently, voiding without difficult, illeostomy and CHAY drain emptied, call antonio within reach
[2023-10-03] MEDS: ROXICODONE 5 MG PO (06:14)
[2023-10-03 07:31] LABS: Glucose - Point of Care 94 mg/dl (70-99)
[2023-10-03] MEDS: MORPHINE SULFATE 2 MG IV (08:00)
--- NOTE | 2023-10-03 08:06 | PN.DE.MGMTRT ---
Insulin Management
- -
10/03/2023 Diabetes Management F/U:
58 year old male admitted 09/11 with mesenteric bypass thrombosis.
PMH includes: IL, Aortic mesenteric bypass 06/19. Of note, pt had no h/o Diabetes, A1C 5.8%, Cr 0.7 eGFR > 60.
Patient was on glycemic protocol and was transitioned to SQ insulin Lantus 20 units BID with corrective insulin Q 6 hours moderate dose.
He remains on prednisone taper, currently 30 mg daily.
His insulin regimen was completed stopped by the primary team, when TPN was discontinued.
Patient is awake and alert, sitting up comfortably, able to converse.
He is now on low residue diet, consuming 40-50% of his meals. Glucose has remained stable, no corrective insulin needed with meals, FBG 94
Will make no changes to current regimen. Cont corrective insulin with meals
Diabetes History
- -
Type of Diabetes: 2
Pre-Admission Diabetes Regimen
Lab Results
Hemoglobin A1c 5.8 % (4.0-5.6) H 09/13/23 03:17
Insulin Pump Settings
IP Diabetes Regimen
10/02/23 10/03/23
11:31 07:19
POC Glucose 100 H 94
Meal type: Dinner
Meal type: Lunch
Meal type: Breakfast
Amount consumed: 50%
Amount consumed: 40%
Amount consumed: 30%
Patient Education
--- NOTE | 2023-10-03 08:17 | PTCARENOTE ---
recd pt c/o pain, notes no relief from earlier oxy. med with morphine, TT to attending re: pain. abd soft tender, ileost draining liquid brown, mod amt. CHAY unchanged, viscous brown fluid, small amounts. christin intact, no overt bruising. mild
nausea. some relief with morphine. accucheck noted. urine clear yellow.
--- NOTE | 2023-10-03 08:25 | W.PN.HOSP.TC ---
Addendum entered and electronically signed by Abraham Jose MD 10/03/23 09:32:
[facility] Pulmonary Dr Plata - ok to stop steroids from pulmonary standpoint.
Original Note:
Today's Communication/Plan
-
Repeat labs -cmp,lipase,cbc
Check bladder scan
Follow diet tolerance and follow abdo examination
Assessment / Plan
Assessment / Plan
Assessment:
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
- s/p Exploratory laparotomy, lysis of adhesions, aorto-mesenteric bypass Tona thrombectomy, mesenteric arteriogram, patch angioplasty of aorto-mesenteric bypass 09/12
- CT-A 09/13 showing patient bypass, concern for bowel ischemia (see below)
Ischemic bowel c/b necrotic bowel
- s/p ex-lap 09/20: Necrotic and perforated entire transverse colon, ischemic right colon and terminal ileum, ischemic left colon, ? ischemia of the proximal jejunum. 70 cm terminal colon with entire right colon, transverse colon and descending colon
removed.
- s/p 2nd look ex-lap 09/22 with Murky fluid throughout the abdomen, viable remaining small intestine with excellent Doppler signals, Haily ileostomy
- Transitioned to oral Eliquis 10/01
- ID following for suspected secondary peritonitis. Continue Micafungin; Meropenem changed to Augmentin
- Hematology input about hypercoagulable assessments noted -continue with anticoagulant and follow with office for work up.
Recurrent abdo pain -since yesterday. Abdomen soft and no rebound . No N/V ,seem to have a appetite for breakfast. Check labs including lipase, bladder scan, cw PPI . CRS following.
Persistent neutrophilia-no changes to leukocytosis despite improving clinical improvement. I doubt still reactive to intra-abdominal infection. Patient on meropenem and micafungin. Currently on tapering steroids. Continue to follow and if
persistent despite coming off steroids look for myeloproliferative issues.
Ventilator dependent respiratory failure/acute hypoxic respiratory failure
- extubated 09/26
- Oxygenating well on nasal cannula
Post-op shock - multifactorial from sepsis/blood loss
- pressors weaned 09/26;Hemodynamics stable
- Echo normal EF
Delirium -post op -suspected TME. Off precedex.resolved
GI bleed related to ischemic colitis
Acute blood loss anemia
- monitor Hb -stable
- 1 unit given 09/27
- continue PPI
Hyponatremia due to SIADH (acute on chronic - baseline Na approx 131-134) - SIADH is likely due to recent surgery, also component of volume overload
- BNP only mildly elevated
- Echo normal
- Wt almost at his admit wt
- Changed Lasix to prn wt gain
HTN - elevated BP noted .pt not a known HTN - Cardizem initiated .Uptitrate as needed. Blood pressure mostly under goal.
Bilateral pleural effusions left greater than right
Moderate COPD/emphysema - On steroids taper for possible flare. Pulmonary managing.
CAD s/p prior hx of NSTEMI - asymptomatic without chest pain. On aspirin at home.
Hyperbilirubinemia- mostly indirect elevation, possible Gilbert's + hematomas related. Continue to follow.
Abnormal LFTs - improving after TPN stopped
Hx of DVT status post apixaban 03/2021 post left knee surgery
Chronic back pain - recent steroid taper. Continued mid back pain which is a equally troubling. No sciatica . plain xrays show loss of height of superior endplate t12,l4 . Pt had pull while lifting something at home but no fall or trauma. continue
symptomatic tx
Hyperglycemia
No hx of DM
- HbA1C 5.8
- On high doses of insulin due to combination of steroid use and TPN.
- Now off of KATERINE insulin and on SSI as pt off of TPN
Tobacco abuse - remains actively smoking. Cessation recommended.
Nutrition - on TPN and liquid diet
Occlusive thrombus left arm - throughout the cephalic vein in the forearm, antecubital fossa, and distal aspect of the upper arm
- continue anticoagulation
DVT ppx: IV Heparin
Code: Full
DW TOBACCO GROWER
Anticipated Discharge: > 48 hours
Subjective/Interval History
-
Date of Service: October 03, 2023
Started noticed some abdominal pain last evening. Moderate in intensity. Generalized in abdomen. Got relieved with morphine and slept okay.
Does not feel nauseous. He did tolerate breakfast. He does have an appetite for breakfast.
Urinary catheter was removed he states he is able to pee and does not think he is retaining.
No fever or chills.
Objective Data
-
Vital Signs:
Vital Signs
Temp Pulse Resp BP Pulse Ox
98.6 F 79 21 158/74 95
10/03/23 07:11 10/03/23 08:04 10/03/23 08:04 10/03/23 08:04 10/03/23 08:00
I&O
10/02/23 10/03/23 10/04/23
06:59 06:59 06:59
Intake Total 1625 / 1625 1484 / 1484
Output Total 3580 / 3580 3350 / 3350 200 / 200
Balance -1955 / -1955 -1866 / -1866 -200 / -200
Review of Systems
-
Constitutional: Denies Fever
EENT: Denies Sore Throat
Respiratory: Denies Cough or Trouble Breathing
Cardiac: Denies Chest Pain
Neuro: Denies Dizzy
Physical Exam
-
General: No Apparent Distress
HEENT: Moist Mucous Membranes
Respiratory: Clear to Auscultation
Cardiac: Regular Rhythm and S1/S2
GI: Soft, Nondistended, Normal Bowel Sounds, Tender (discomfort in general but no rebound and guarding), Ostomy (liquid stools) and Other (incision line clean; LLQ drain with slightly increased output ;right drain output not much)
Musculoskeletal: No Edema
Neuro: AO x 3
Psych: Calm
--- NOTE | 2023-10-03 09:15 | W.PN.ID1 ---
Date of Service
Date of Service: October 03, 2023
Today's Communication
consider CT a/p
- restart meropenem pending further assessment, continue micafungin for now (d#14)
Assessment / Plan
Sujatha peritonitis,
Leukocytosis
- Likely steroid component.
Total SMA graft occlusion
- s/p thrombectomy (performed through prior graft) & patch repair
Acute mesenteric ischemia - resolved
Transaminitis - resolving
Hx medication noncompliance
Recommendations:
- increased abdominal pain overnight, output from the left drain increasing last 3 days - feculent appearing
- consider reimaging the abdomen, tiger text sent to colorectal surgery to discuss
- some component of leukocytosis may be reactive with steroids - agree with stopping steroids
- restart meropenem pending further assessment, continue micafungin for now (d#14)
- follow clinically
Note and share Dr Chavez's concern that thrombectomy needed to be performed through prior graft, potentially exposing graft material to peritoneal contents; will plan for chronic suppression if feasible
����������������������������������������������������������
Chief Complaint
-: Leukocytosis and Other (secondary peritonitis)
Subjective / Review of Systems
afebrile
bp stable
stable leukocytosis
recurrent abdominal pain
right drain removed, L drain remains - increased output to 100 ccs
remains on high dose steroids
markedly increased abdominal pain overnight
Vital Signs / Physical Exam
Vital Signs
Vital Signs
Temp Pulse Resp BP Pulse Ox
98.6 F 79 21 158/74 95
10/03/23 07:11 10/03/23 08:04 10/03/23 08:04 10/03/23 08:04 10/03/23 08:00
Physical Exam
Constitutional: No Acute Distress and Chronically Ill
Cardiovascular: Regular Rate and S1/S2; Negative Murmur or Rub
Pulmonary: Clear and Symmetric; Negative Wheezes or Rales
Gastrointestinal: Soft, Non Tender (just had opiates), Non Distended, Normal Bowel Sounds, No Rebound and No Guarding
Skin: Warm and Dry; Negative Rash or Jaundice
Objective Data
Lab Data
PT 17.8 Sec (11.4-14.6) H 09/13/23 03:17
INR 1.49 09/13/23 03:17
APTT Cancelled 10/02/23 12:30
Estimated Creat Clear 118 ml/min 10/02/23 05:29
Lactic Acid 1.5 mmol/L (0.7-2.0) 09/21/23 17:38
Total Bilirubin 1.3 mg/dl (0.2-1.3) 10/01/23 04:25
AST 36 U/L (17-59) 10/01/23 04:25
ALT 89 U/L (0-50) H 10/01/23 04:25
Alkaline Phosphatase 147 U/L (38-126) H 10/01/23 04:25
Most recent labs reviewed.
Micro Results:
09/23/23 16:45 Body Fluid Culture - Final
Fluid Sujatha albicans
Gram Stain - Final
09/23/23 16:45 Anaerobic Culture - Final
Abdomen NO ANAEROBES ISOLATED
09/21/23 15:00 Wound Culture - Final
Abdomen Sujatha albicans
Gram Stain - Final
09/21/23 15:00 Anaerobic Culture - Final
Peritoneal Fluid NO ANAEROBES ISOLATED
09/20/23 10:03 Blood Culture - Final
Blood/Venous No Growth - Final Report
09/20/23 10:11 Blood Culture - Final
Blood/Venous No Growth - Final Report
09/12/23 18:05 Blood Culture - Final
Blood/Venous No Growth - Final Report
09/12/23 18:05 Influenza Types A & B (ALAN) - Final
Nasal Swab Negative for Influenza A & B, NAAT
Negative results must be combined with clinical observations
and patient history.
Nucleic Acid Amplification test (NAAT)performed on the
[employer] platform.
Imaging:
09/26/2023 CXR (portable): Persistent bibasilar atelectasis and pleural fluid. Little change from previous exams.
Care Review
Plan reviewed with: Physician (Dr Jose, Dr Alanis - possible CT;)
[2023-10-03] MEDS: CARDIZEM CD 120 MG PO (09:23)
[2023-10-03] MEDS: ELIQUIS 5 MG PO ×2 (09:23→20:51)
[2023-10-03] MEDS: DELTASONE 30 MG PO (09:23)
[2023-10-03] MEDS: ASPIR LOW (ENTERIC COATED) 81 MG PO (09:24)
[2023-10-03] MEDS: AUGMENTIN 875 MG/125 MG 1 TABLET PO (09:24)
[2023-10-03] MEDS: PROTONIX 40 MG PO (09:24)
[2023-10-03 09:55] LABS: Hemoglobin 9.3 g/dL (13.0-18.0); Mean Corp Hgb Conc. 33.2 g/dL (33.0-37.0); Mean Corpuscular Volume 90.3 fL (80.0-94.0); Mean Platelet Volume 12.4 fL (7.4-10.4); Platelet Count 308 10^3/uL (130-400); Red Cell Dist. Width 18.6 % (11.5-14.5); White Blood Cell Count 23.1 10^3/uL (4.8-10.8)
[2023-10-03 10:29] LABS: ALT (SGPT) 71 U/L (0-50); AST (SGOT) 46 U/L (17-59); Albumin 2.3 g/dl (3.5-5.0); Alkaline Phosphatase 176 U/L (38-126); Blood Urea Nitrogen 24 mg/dl (9-20); Calcium 7.6 mg/dl (8.4-10.2); Carbon Dioxide 25 mmol/L (22-30); Chloride 105 mmol/L (98-107); Estimated Creatinine Clearance 103 ml/min; Glucose 83 mg/dl (70-99); Lipase 700 U/L (23-300); Potassium 4.1 mmol/L (3.5-5.1); Sodium 129 mmol/L (135-145); Total Bilirubin 1.1 mg/dl (0.2-1.3); Total Protein 4.9 g/dl (6.3-8.2); eGFR > 60.00
[2023-10-03] MEDS: MERREM 500 MG IV ×3 (10:55→22:55)
[2023-10-03] MEDS: STERILE WATER FOR INJECTION 10 ML IV ×3 (10:55→22:55)
--- NOTE | 2023-10-03 11:46 | CM ---
CM following re: discharge planning.
Reviewed pt's chart, met with pt. Pt stated he feels much better. ID, colorectal surgery following.
D/C plan: [facility] when medically stable.
CM will follow to assist pt with discharge to [facility].
[2023-10-03 11:56] LABS: Glucose - Point of Care 102 mg/dl (70-99)
[2023-10-03] MEDS: MYCAMINE 105 MG IV (12:21)
--- NOTE | 2023-10-03 12:47 | W.PN.CRS1 ---
Today's Communication / Plan
-
continue diet
OOB
monitor wbc
monitor drain output
Assessment/Plan
-
58-year-old male who presented with SMA thrombus/occlusion
POD #20 ex lap with SMA graft thrombectomy with patch angioplasty, complicated by worsening mesenteric ischemia and sepsis
POD #12 ex lap subtotal colectomy, left in discontinuity
POD #10 planned take back, creation of end ileostomy
1. Vitals normal. WBC 23.1. On IV antibiotics.
2. Continue left CHAY drain output remains brown and murky.
3. Continue low residue with Ensure.
4. Eliquis has been restarted.
5. Wound RN following.
6. SCDs for DVT prophylaxis.
7. Out of bed as tolerated. PT ordered.
8. Discussed case with ID. WBC still elevated. Has some abdominal pain today. Drain still brown. If not improving by Friday, will consider a CT A/P.
Subjective Data
Procedure
09/21/2023- Exploratory laparotomy, subtotal colectomy (takedown of splenic flexure)
09/23/2023- 2nd look laparotomy and ileostomy (reopening of recent laparotomy)
Subjective Data
Date of Service: October 03, 2023
Patient states he has some abdominal pain. He denies nausea or vomiting. He is hungry. His colostomy is functioning.
Objective Data
-
Vital Signs
Temp Pulse Resp BP Pulse Ox
98.5 F 86 21 156/79 95
10/03/23 11:38 10/03/23 09:23 10/03/23 08:04 10/03/23 09:23 10/03/23 08:00
Intake & Output
10/02/23 10/03/23 10/04/23
06:59 06:59 06:59
Intake Total 1625 / 1625 1484 / 1484 240 / 240
Output Total 3580 / 3580 3350 / 3350 680 / 680
Balance -1955 / -1955 -1866 / -1866 -440 / -440
Intake:
Oral fluids 480 / 480 1320 / 1320 240 / 240
IV fluids (Total) 440 / 440 54 / 54
Heparin 440 / 440 54 / 54
IV piggybacks 105 / 105 110 / 110
TPN/PPN 600 / 600
Output:
Liquid stool amount 600 / 600 1725 / 1725 450 / 450
Ileostomy 600 / 600 1725 / 1725 450 / 450
Drain Output (Total) 380 / 380 275 / 275 30 / 30
Left Filiberto-Roche B 365 / 365 265 / 265 30 / 30
Right Filiberto-Roche A 15 / 15 10 / 10
Urine, Voided 2600 / 2600 1350 / 1350 200 / 200
Lab Results
10/03/23 09:21
10/03/23 09:21
Physical Exam
-
General: No Acute Distress and AOx3
Abdomen: Soft, Non Distended, Tender (mild) and Other (ileostomy warm and pink with function)
Skin: Warm and Dry
--- NOTE | 2023-10-03 14:32 | PTCARENOTE ---
ambulated with much encouragement, gait steady, used RW. family visiting. pain much improved.
--- NOTE | 2023-10-03 15:56 | WOUNDNOTE ---
[facility] RN NOTE: Visited patient and support person, Mirian for ostomy teaching. Stoma very active with about 300 cc of drainage, and continued drainage with care. Pouch emptying was demonstrated and Mirian and patient stated understanding. Patient
very tearful during care and support given. Reviewed foods that assist with thickening of stool, as well of importance of staying hydrated and how often to empty pouch. Barrier kept in place and pouch replaced. All ostomy supplies in room. Per
Mirian plan is for SNF at [place]. Will continue to follow as needed.
--- NOTE | 2023-10-03 16:50 | PTCARENOTE ---
tsf [id number] with all belongings via .
[2023-10-03 17:27] LABS: Glucose - Point of Care 147 mg/dl (70-99)
--- NOTE | 2023-10-03 18:08 | PTCARENOTE ---
Rec'd Pt as TXFR from ICU. Pt is AOOx3, ambulated from wheelchair to bed x 1 assist. Pt oriented to room with call antonio in place.
[2023-10-03 21:25] LABS: Glucose - Point of Care 128 mg/dl (70-99)
[2023-10-04 03:21] VITALS: BP 142/72
[2023-10-04] MEDS: MERREM 500 MG IV ×4 (04:25→21:24)
[2023-10-04] MEDS: STERILE WATER FOR INJECTION 10 ML IV ×4 (04:25→21:25)
[2023-10-04 06:00] VITALS: BMI 21.7
[2023-10-04 07:59] LABS: Glucose - Point of Care 110 mg/dl (70-99)
[2023-10-04 09:22] VITALS: BP 138/79
[2023-10-04] MEDS: ASPIR LOW (ENTERIC COATED) 81 MG PO (09:26)
[2023-10-04] MEDS: PROTONIX 40 MG PO (09:26)
[2023-10-04] MEDS: ELIQUIS 5 MG PO ×2 (09:26→20:48)
[2023-10-04] MEDS: CARDIZEM CD 120 MG PO (09:26)
[2023-10-04 11:27] LABS: Glucose - Point of Care 132 mg/dl (70-99)
--- NOTE | 2023-10-04 11:54 | W.PN.ID1 ---
Date of Service
Date of Service: October 04, 2023
Today's Communication
Continue meropenem and micafungin.
Assessment / Plan
Sujatha peritonitis,
Leukocytosis
- Likely steroid component.
Total SMA graft occlusion
- s/p thrombectomy (performed through prior graft) & patch repair
Acute mesenteric ischemia - resolved
Transaminitis - resolving
Hx medication noncompliance
Recommendations:
- output from the left drain increasing last few days - feculent appearing
- reimaging the abdomen next week per colorectal
- some component of leukocytosis may be reactive with steroids - agree with stopping steroids
- restarted meropenem (d2) pending further assessment, continue micafungin for now (d#15)
- follow clinically
Note and share Dr Chavez's concern that thrombectomy needed to be performed through prior graft, potentially exposing graft material to peritoneal contents; will plan for chronic suppression if feasible
����������������������������������������������������������
Chief Complaint
-: Leukocytosis and Other (secondary peritonitis)
Subjective / Review of Systems
Abdominal pain intermittent.
Vital Signs / Physical Exam
Vital Signs
Vital Signs
Temp Pulse Resp BP Pulse Ox
99.1 F 79 16 138/79 96
10/04/23 09:22 10/04/23 09:22 10/04/23 09:22 10/04/23 09:22 10/04/23 09:22
Physical Exam
Constitutional: No Acute Distress
Gastrointestinal: Soft, Non Tender and Normal Bowel Sounds
Objective Data
Lab Data
Lab Results
10/03/23 09:21
10/03/23 09:21
PT 17.8 Sec (11.4-14.6) H 09/13/23 03:17
INR 1.49 09/13/23 03:17
APTT Cancelled 10/02/23 12:30
Estimated Creat Clear 103 ml/min 10/03/23 09:21
Lactic Acid 1.5 mmol/L (0.7-2.0) 09/21/23 17:38
Total Bilirubin 1.1 mg/dl (0.2-1.3) 10/03/23 09:21
AST 46 U/L (17-59) 10/03/23 09:21
ALT 71 U/L (0-50) H 10/03/23 09:21
Alkaline Phosphatase 176 U/L (38-126) H 10/03/23 09:21
Most recent labs reviewed.
Micro Results:
09/23/23 16:45 Body Fluid Culture - Final
Fluid Sujatha albicans
Gram Stain - Final
09/23/23 16:45 Anaerobic Culture - Final
Abdomen NO ANAEROBES ISOLATED
09/21/23 15:00 Wound Culture - Final
Abdomen Sujatha albicans
Gram Stain - Final
09/21/23 15:00 Anaerobic Culture - Final
Peritoneal Fluid NO ANAEROBES ISOLATED
09/20/23 10:03 Blood Culture - Final
Blood/Venous No Growth - Final Report
09/20/23 10:11 Blood Culture - Final
Blood/Venous No Growth - Final Report
09/12/23 18:05 Blood Culture - Final
Blood/Venous No Growth - Final Report
09/12/23 18:05 Influenza Types A & B (ALAN) - Final
Nasal Swab Negative for Influenza A & B, NAAT
Negative results must be combined with clinical observations
and patient history.
Nucleic Acid Amplification test (NAAT)performed on the
[employer] platform.
Imaging:
09/26/2023 CXR (portable): Persistent bibasilar atelectasis and pleural fluid. Little change from previous exams.
[2023-10-04 12:30] VITALS: BP 138/81
[2023-10-04] MEDS: STERILE WATER FOR INJECTION IV (12:37)
[2023-10-04] MEDS: MERREM IV (12:38)
--- NOTE | 2023-10-04 12:40 | W.PN.GS2 ---
Today's Communication / Plan
-
`
Assessment / Plan
-
Assessment: 58-year-old male with complex hospitalization initially presenting with SMA thrombus/occlusion
POD #21 ex lap, SMA graft thrombectomy, patch angioplasty
POD #13 ex lap subtotal colectomy
POD #11 planned relook laparotomy, creation end ileostomy
Afebrile vital signs stable
WBC remains elevated at 23
CHAY with feculent like outputs but abdominal exam stable and ostomy functioning
Plan: Continue low residue diet
Antibiotics per ID
Follow-up CT imaging at the start of this upcoming week unless clinical change to warrant imaging sooner
Repeat labs tomorrow a.m.
Subjective Data
-
Date of Service: October 04, 2023
Patient seen and examined.
Transferred to [facility] bed yesterday afternoon.
Postoperative incisional/abdominal pain mild stably controlled
Tolerating low residue diet with fair to poor appetite
Ostomy functioning
Objective Data
-
Intake and Output
10/03/23 10/04/23 10/05/23
06:59 06:59 06:59
Intake Total 1484 / 1484 240 / 240
Output Total 3350 / 3350 1400 / 1400 250 / 250
Balance -1866 / -1866 -1160 / -1160 -250 / -250
Intake:
Oral fluids 1320 / 1320 240 / 240
IV fluids (Total) 54 / 54
Heparin 54 / 54
IV piggybacks 110 / 110
Output:
Liquid stool amount 1725 / 1725 750 / 750 250 / 250
Ileostomy 1725 / 1725 750 / 750 250 / 250
Drain Output (Total) 275 / 275 450 / 450
Left Filiberto-Roche B 265 / 265 450 / 450
Right Filiberto-Roche A /
Urine, Voided 1350 / 1350 200 / 200
Vital Signs
Temp Pulse Resp BP Pulse Ox
99.1 F 79 16 138/79 96
10/04/23 09:22 10/04/23 09:22 10/04/23 09:22 10/04/23 09:22 10/04/23 09:22
Lab Results
10/03/23 09:21
10/03/23 09:21
Calcium 7.6 mg/dl (8.4-10.2) L 10/03/23 09:21
Phosphorus 4.5 mg/dl (2.5-4.5) 09/29/23 05:09
Magnesium 2.7 mg/dl (1.6-2.3) H 09/29/23 05:09
Total Bilirubin 1.1 mg/dl (0.2-1.3) 10/03/23 09:21
Direct Bilirubin 1.0 mg/dl (0.0-0.4) H 09/23/23 04:46
AST 46 U/L (17-59) 10/03/23 09:21
ALT 71 U/L (0-50) H 10/03/23 09:21
Alkaline Phosphatase 176 U/L (38-126) H 10/03/23 09:21
Total Protein 4.9 g/dl (6.3-8.2) L 10/03/23 09:21
Albumin 2.3 g/dl (3.5-5.0) L 10/03/23 09:21
Physical Exam
-
NAD AAOx3, chronically ill-appearing
Abdomen: Soft, nondistended, mild incisional tenderness. Incision with skin christin, no erythema, no open wounds, no drainage
Stoma with appliance, liquid stool/air
Left-sided CHAY with brown/bloody drainage bulb
[2023-10-04] MEDS: MYCAMINE 105 MG IV (13:01)
--- NOTE | 2023-10-04 13:08 | W.PN.HOSP.TC ---
Today's Communication/Plan
-
CW diet per CRS
CW Abx
CW PT tx
Assessment / Plan
Assessment / Plan
Assessment:
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
- s/p Exploratory laparotomy, lysis of adhesions, aorto-mesenteric bypass Tona thrombectomy, mesenteric arteriogram, patch angioplasty of aorto-mesenteric bypass 09/12
- CT-A 09/13 showing patient bypass, concern for bowel ischemia (see below)
Ischemic bowel c/b necrotic bowel
- s/p ex-lap 09/20: Necrotic and perforated entire transverse colon, ischemic right colon and terminal ileum, ischemic left colon, ? ischemia of the proximal jejunum. 70 cm terminal colon with entire right colon, transverse colon and descending colon
removed.
- s/p 2nd look ex-lap 09/22 with Murky fluid throughout the abdomen, viable remaining small intestine with excellent Doppler signals, Haily ileostomy
- Transitioned to oral Eliquis 10/01
- ID following for suspected secondary peritonitis. Continue Micafungin; Meropenem changed to Augmentin
- Hematology input about hypercoagulable assessments noted -continue with anticoagulant and follow with office for work up.
Recurrent abdo pain -Improved. Abdomen soft and no rebound . No N/V .Follow for now .cw PPI . CRS following.
Persistent neutrophilia-no changes to leukocytosis despite improving clinical improvement. I doubt still reactive to intra-abdominal infection. Patient on meropenem and micafungin. Currently on tapering steroids. Continue to follow and if
persistent despite coming off steroids look for myeloproliferative issues.
Ventilator dependent respiratory failure/acute hypoxic respiratory failure
- extubated 09/26
- Oxygenating well on nasal cannula
Post-op shock - multifactorial from sepsis/blood loss
- pressors weaned 09/26;Hemodynamics stable
- Echo normal EF
Delirium -post op -suspected TME. Off precedex.resolved
GI bleed related to ischemic colitis
Acute blood loss anemia
- monitor Hb -stable
- 1 unit given 09/27
- continue PPI
Hyponatremia due to SIADH (acute on chronic - baseline Na approx 131-134) - SIADH is likely due to recent surgery, also component of volume overload
- BNP only mildly elevated
- Echo normal
- Wt almost at his admit wt
- Changed Lasix to prn wt gain
HTN - elevated BP noted .pt not a known HTN - Cardizem initiated .Uptitrate as needed. Blood pressure mostly under goal.
Bilateral pleural effusions left greater than right
Moderate COPD/emphysema - On steroids taper for possible flare. Pulmonary managing.
CAD s/p prior hx of NSTEMI - asymptomatic without chest pain. On aspirin at home.
Hyperbilirubinemia- mostly indirect elevation, possible Gilbert's + hematomas related. Continue to follow.
Abnormal LFTs - improving after TPN stopped
Hx of DVT status post apixaban 03/2021 post left knee surgery
Chronic back pain - recent steroid taper. Continued mid back pain which is a equally troubling. No sciatica . plain xrays show loss of height of superior endplate t12,l4 . Pt had pull while lifting something at home but no fall or trauma. continue
symptomatic tx
Hyperglycemia
No hx of DM
- HbA1C 5.8
- On high doses of insulin due to combination of steroid use and TPN.
- Now off of KATERINE insulin and on SSI as pt off of TPN
Tobacco abuse - remains actively smoking. Cessation recommended.
Nutrition - on TPN and liquid diet
Occlusive thrombus left arm - throughout the cephalic vein in the forearm, antecubital fossa, and distal aspect of the upper arm
- continue anticoagulation
DVT ppx: IV Heparin
Code: Full
Anticipated Discharge: > 48 hours
Subjective/Interval History
-
Date of Service: October 04, 2023
Improved abdo pain
Tolerating diet without N/V
No fever
Objective Data
-
Vital Signs:
Vital Signs
Temp Pulse Resp BP Pulse Ox
99.1 F 79 16 138/79 96
10/04/23 09:22 10/04/23 09:22 10/04/23 09:22 10/04/23 09:22 10/04/23 09:22
I&O
10/03/23 10/04/23 10/05/23
06:59 06:59 06:59
Intake Total 1484 / 1484 240 / 240
Output Total 3350 / 3350 1400 / 1400 250 / 250
Balance -1866 / -1866 -1160 / -1160 -250 / -250
Review of Systems
-
Respiratory: Denies Trouble Breathing
Cardiac: Denies Chest Pain
Neuro: Denies Dizzy
Physical Exam
-
General: No Apparent Distress
HEENT: Moist Mucous Membranes
Respiratory: Clear to Auscultation
Cardiac: Regular Rhythm and S1/S2
GI: Soft and Ostomy
Neuro: AO x 3
Psych: Calm; Negative Confused
Data Reviewed
-
Labs: Labs Reviewed by me
[2023-10-04 16:15] VITALS: BP 136/74
[2023-10-04 19:00] VITALS: BP 147/74
[2023-10-04 23:00] VITALS: BP 128/63
[2023-10-05 03:00] VITALS: BP 145/76
[2023-10-05] MEDS: STERILE WATER FOR INJECTION 10 ML IV ×4 (03:27→21:26)
[2023-10-05] MEDS: MERREM 500 MG IV ×4 (03:27→21:27)
[2023-10-05 05:47] LABS: Hematocrit 28.6 % (39.0-52.0); Hemoglobin 9.4 g/dL (13.0-18.0); Mean Corp Hgb Conc. 32.9 g/dL (33.0-37.0); Mean Corpuscular Volume 91.4 fL (80.0-94.0); Mean Platelet Volume 11.9 fL (7.4-10.4); Platelet Count 324 10^3/uL (130-400); Red Blood Cell Count 3.13 10^6/uL (4.70-6.10); Red Cell Dist. Width 17.9 % (11.5-14.5); White Blood Cell Count 16.2 10^3/uL (4.8-10.8)
[2023-10-05 06:00] VITALS: BMI 21.7
[2023-10-05 06:14] LABS: Blood Urea Nitrogen 11 mg/dl (9-20); Calcium 8.1 mg/dl (8.4-10.2); Carbon Dioxide 24 mmol/L (22-30); Chloride 99 mmol/L (98-107); Estimated Creatinine Clearance 112 ml/min; Glucose 112 mg/dl (70-99); Potassium 4.2 mmol/L (3.5-5.1); Sodium 128 mmol/L (135-145); eGFR > 60.00
[2023-10-05 07:50] VITALS: BP 140/76
[2023-10-05] MEDS: CARDIZEM CD 120 MG PO (09:58)
[2023-10-05] MEDS: ELIQUIS 5 MG PO ×2 (09:58→19:52)
[2023-10-05] MEDS: ASPIR LOW (ENTERIC COATED) 81 MG PO (09:58)
[2023-10-05] MEDS: PROTONIX 40 MG PO (09:58)
--- NOTE | 2023-10-05 11:12 | W.PN.GS2 ---
Today's Communication / Plan
-
`
Assessment / Plan
-
Assessment: 58-year-old male with complex hospitalization initially presenting with SMA thrombus/occlusion
POD #22 ex lap, SMA graft thrombectomy, patch angioplasty
POD #14 ex lap subtotal colectomy
POD #12 planned relook laparotomy, creation end ileostomy
Afebrile vital signs stable
WBC down to 16 today
CHAY with feculent like outputs but abdominal exam stable and ostomy functioning
Plan: Continue low residue diet
Antibiotics per ID
Follow-up CT A/P with p.o. and IV contrast ordered for tomorrow a.m.
Ambien nightly as needed sleep
Given patient's lengthy and complex hospitalization, I think would be beneficial for the patient's mental status to be able to ambulate off the floors and get some fresh air if he has some family or support to help wheelchair him out for a bit; He
acknowledged that he would like this.
Subjective Data
-
Date of Service: October 05, 2023
Patient seen and examined.
Some intermittent abdominal discomfort/cramps but no nausea or vomiting.
Not much appetite this a.m. but tolerating p.o. intake
Ostomy functioning
No fevers chills or sweats.
Difficulty sleeping
A bit tearful during our discussions
Objective Data
-
Intake and Output
10/04/23 10/05/23 10/06/23
06:59 06:59 06:59
Intake Total 240 / 240 1510 / 1510 480 / 480
Output Total 1400 / 1400 1860 / 1860 640 / 640
Balance -1160 / -1160 -350 / -350 -160 / -160
Intake:
Oral fluids 240 / 240 1410 / 1410 480 / 480
IV fluids (Total) 100 / 100
Output:
Liquid stool amount 750 / 750 550 / 550 100 / 100
Ileostomy 750 / 750 550 / 550 100 / 100
Drain Output (Total) 450 / 450 210 / 210 40 / 40
Left Filiberto-Roche B 450 / 450 210 / 210 40 / 40
Urine, Voided 200 / 200 1100 / 1100 500 / 500
Other:
Number of approximated MODERATE 1
amounts of urine
How many times incontinent 1
MODERATE amount urine
Vital Signs
Temp Pulse Resp BP Pulse Ox
98.2 F 84 16 140/76 98
10/05/23 07:50 10/05/23 07:50 10/05/23 07:50 10/05/23 07:50 10/05/23 09:34
Lab Results
10/05/23 05:24
10/05/23 05:24
Calcium 8.1 mg/dl (8.4-10.2) L 10/05/23 05:24
Phosphorus 4.5 mg/dl (2.5-4.5) 09/29/23 05:09
Magnesium 2.7 mg/dl (1.6-2.3) H 09/29/23 05:09
Total Bilirubin 1.1 mg/dl (0.2-1.3) 10/03/23 09:21
Direct Bilirubin 1.0 mg/dl (0.0-0.4) H 09/23/23 04:46
AST 46 U/L (17-59) 10/03/23 09:21
ALT 71 U/L (0-50) H 10/03/23 09:21
Alkaline Phosphatase 176 U/L (38-126) H 10/03/23 09:21
Total Protein 4.9 g/dl (6.3-8.2) L 10/03/23 09:21
Albumin 2.3 g/dl (3.5-5.0) L 10/03/23 09:21
Physical Exam
-
NAD, AAOx3
ABD: Soft, nondistended, right lower quadrant ostomy with liquid stool some gas
Left-sided CHAY with feculent like material
[2023-10-05 11:23] VITALS: BP 130/71
[2023-10-05] MEDS: MYCAMINE 105 MG IV (13:13)
--- NOTE | 2023-10-05 14:22 | W.PN.HOSP.TC ---
Today's Communication/Plan
-
FR
Urine lytes
Follow Na
CT A/P per surgery
Assessment / Plan
Assessment / Plan
Assessment:
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
- s/p Exploratory laparotomy, lysis of adhesions, aorto-mesenteric bypass Tona thrombectomy, mesenteric arteriogram, patch angioplasty of aorto-mesenteric bypass 09/12
- CT-A 09/13 showing patient bypass, concern for bowel ischemia (see below)
Ischemic bowel c/b necrotic bowel
- s/p ex-lap 09/20: Necrotic and perforated entire transverse colon, ischemic right colon and terminal ileum, ischemic left colon, ? ischemia of the proximal jejunum. 70 cm terminal colon with entire right colon, transverse colon and descending colon
removed.
- s/p 2nd look ex-lap 09/22 with Murky fluid throughout the abdomen, viable remaining small intestine with excellent Doppler signals, Haily ileostomy
- Transitioned to oral Eliquis 10/01
- ID following for suspected secondary peritonitis. Continue Micafungin; Meropenem changed to Augmentin
- Hematology input about hypercoagulable assessments noted -continue with anticoagulant and follow with office for work up.
Recurrent abdo pain -Improved. Abdomen soft and no rebound . No N/V .Follow for now .cw PPI . CRS following. CT A/P in am per CRS
Persistent neutrophilia-no changes to leukocytosis despite improving clinical improvement. I doubt still reactive to intra-abdominal infection. Patient on meropenem and micafungin. Currently on tapering steroids. Continue to follow and if
persistent despite coming off steroids look for myeloproliferative issues.Improving .
Ventilator dependent respiratory failure/acute hypoxic respiratory failure
- extubated 09/26
- Oxygenating well on nasal cannula
Post-op shock - multifactorial from sepsis/blood loss
- pressors weaned 09/26;Hemodynamics stable
- Echo normal EF
Delirium -post op -suspected TME. Off precedex.resolved
GI bleed related to ischemic colitis
Acute blood loss anemia
- monitor Hb -stable
- 1 unit given 09/27
- continue PPI
Hyponatremia due to SIADH (acute on chronic - baseline Na approx 131-134) - SIADH is likely due to recent surgery, also component of volume overload
- BNP only mildly elevated
- Echo normal
- Wt almost at his admit wt
- Changed Lasix to prn wt gain
-FR now and check Urine Na and Osm
HTN - elevated BP noted .pt not a known HTN - Cardizem initiated .Uptitrate as needed. Blood pressure mostly under goal.
Bilateral pleural effusions left greater than right
Moderate COPD/emphysema - On steroids taper for possible flare. Pulmonary managing.
CAD s/p prior hx of NSTEMI - asymptomatic without chest pain. On aspirin at home.
Hyperbilirubinemia- mostly indirect elevation, possible Gilbert's + hematomas related. Continue to follow.
Abnormal LFTs - improving after TPN stopped
Hx of DVT status post apixaban 03/2021 post left knee surgery
Chronic back pain - recent steroid taper. Continued mid back pain which is a equally troubling. No sciatica . plain xrays show loss of height of superior endplate t12,l4 . Pt had pull while lifting something at home but no fall or trauma. continue
symptomatic tx
Hyperglycemia
No hx of DM
- HbA1C 5.8
- On high doses of insulin due to combination of steroid use and TPN.
- Now off of KATERINE insulin and on SSI as pt off of TPN
Tobacco abuse - remains actively smoking. Cessation recommended.
Nutrition - on TPN and liquid diet
Occlusive thrombus left arm - throughout the cephalic vein in the forearm, antecubital fossa, and distal aspect of the upper arm
- continue anticoagulation
DVT ppx: IV Heparin
Code: Full
CW PT tx
Anticipated Discharge: 24 - 48 hours
Subjective/Interval History
-
Date of Service: October 05, 2023
Feeling improved. Tolerating diet.
Denies shortness of breath. No fever or chills.
Objective Data
-
Labs:
Laboratory Results
10/05/23
05:24
WBC 16.2 H
Hgb 9.4 L
Hct 28.6 L
Plt Count 324
Sodium 128 L
Potassium 4.2
Chloride 99
Carbon Dioxide 24
BUN 11
Creatinine 0.7
Glucose 112 H
Calcium 8.1 L
Vital Signs:
Vital Signs
Temp Pulse Resp BP Pulse Ox
99.3 F 79 16 130/71 98
10/05/23 11:23 10/05/23 11:23 10/05/23 11:23 10/05/23 11:23 10/05/23 11:23
I&O
10/04/23 10/05/23 10/06/23
06:59 06:59 06:59
Intake Total 240 / 240 1510 / 1510 480 / 480
Output Total 1400 / 1400 1860 / 1860 640 / 640
Balance -1160 / -1160 -350 / -350 -160 / -160
Review of Systems
-
EENT: Denies Sore Throat
Respiratory: Denies Cough
Cardiac: Denies Chest Pain
Neuro: Denies Dizzy
Physical Exam
-
General: No Apparent Distress
HEENT: Moist Mucous Membranes
Respiratory: Clear to Auscultation
Cardiac: Regular Rhythm and S1/S2
GI: Soft, Nontender, Nondistended, Normal Bowel Sounds and Ostomy
Neuro: AO x 3
Psych: Calm
Data Reviewed
-
Labs: Labs Reviewed by me
[2023-10-05 14:29] LABS: Urine Sodium 120 mmol/L (30-90)
[2023-10-05 14:36] LABS: Osmolality Urine 444 mOsm/kg (300-900)
--- NOTE | 2023-10-05 14:43 | W.PN.ID1 ---
Date of Service
Date of Service: October 05, 2023
Today's Communication
Continue meropenem,micafunbgin.
Assessment / Plan
Sujatha peritonitis,
Leukocytosis
- Improving
Total SMA graft occlusion
- s/p thrombectomy (performed through prior graft) & patch repair
Acute mesenteric ischemia - resolved
Transaminitis - resolving
Hx medication noncompliance
Recommendations:
- output from the left drain has decreased
- Leukocytosis improved off steroid
- Continue meropenem (d3) and micafungin for now (d#16)
- follow clinically
Note and share Dr Chavez's concern that thrombectomy needed to be performed through prior graft, potentially exposing graft material to peritoneal contents; will plan for chronic suppression if feasible
����������������������������������������������������������
Chief Complaint
-: Leukocytosis and Other (secondary peritonitis)
Subjective / Review of Systems
Abd pain intermittent
Vital Signs / Physical Exam
Vital Signs
Vital Signs
Temp Pulse Resp BP Pulse Ox
99.3 F 79 16 130/71 98
10/05/23 11:23 10/05/23 11:23 10/05/23 11:23 10/05/23 11:23 10/05/23 11:23
Physical Exam
Constitutional: No Acute Distress
Pulmonary: Clear
Gastrointestinal: Soft, Tender (minimal), Non Distended and Other (ostomy + stool. CHAY drain serosanguinous fluid)
Lines: PICC (intact)
Objective Data
Lab Data
Lab Results
10/05/23 05:24
10/05/23 05:24
PT 17.8 Sec (11.4-14.6) H 09/13/23 03:17
INR 1.49 09/13/23 03:17
APTT Cancelled 10/02/23 12:30
Estimated Creat Clear 112 ml/min 10/05/23 05:24
Lactic Acid 1.5 mmol/L (0.7-2.0) 09/21/23 17:38
Total Bilirubin 1.1 mg/dl (0.2-1.3) 10/03/23 09:21
AST 46 U/L (17-59) 10/03/23 09:21
ALT 71 U/L (0-50) H 10/03/23 09:21
Alkaline Phosphatase 176 U/L (38-126) H 10/03/23 09:21
Most recent labs reviewed.
Micro Results:
09/23/23 16:45 Body Fluid Culture - Final
Fluid Sujatha albicans
Gram Stain - Final
09/23/23 16:45 Anaerobic Culture - Final
Abdomen NO ANAEROBES ISOLATED
09/21/23 15:00 Wound Culture - Final
Abdomen Sujatha albicans
Gram Stain - Final
09/21/23 15:00 Anaerobic Culture - Final
Peritoneal Fluid NO ANAEROBES ISOLATED
09/20/23 10:03 Blood Culture - Final
Blood/Venous No Growth - Final Report
09/20/23 10:11 Blood Culture - Final
Blood/Venous No Growth - Final Report
09/12/23 18:05 Blood Culture - Final
Blood/Venous No Growth - Final Report
09/12/23 18:05 Influenza Types A & B (ALAN) - Final
Nasal Swab Negative for Influenza A & B, NAAT
Negative results must be combined with clinical observations
and patient history.
Nucleic Acid Amplification test (NAAT)performed on the
[employer] platform.
Imaging:
09/26/2023 CXR (portable): Persistent bibasilar atelectasis and pleural fluid. Little change from previous exams.
[2023-10-05 15:03] VITALS: BP 146/72
[2023-10-05] MEDS: AMBIEN 5 MG PO (21:26)
[2023-10-05 23:27] VITALS: BP 154/79
[2023-10-05] MEDS: MORPHINE SULFATE 2 MG IV (23:30)
[2023-10-06] MEDS: MERREM 500 MG IV ×4 (03:30→21:26)
[2023-10-06] MEDS: STERILE WATER FOR INJECTION 10 ML IV ×4 (03:30→21:26)
[2023-10-06 06:00] VITALS: BMI 20.1
[2023-10-06 07:15] VITALS: BP 173/78
[2023-10-06 07:54] LABS: Hematocrit 29.1 % (39.0-52.0); Hemoglobin 9.7 g/dL (13.0-18.0); Mean Corp Hgb Conc. 33.3 g/dL (33.0-37.0); Mean Corpuscular Hgb 30.1 pg (27.0-31.0); Mean Corpuscular Volume 90.4 fL (80.0-94.0); Mean Platelet Volume 11.3 fL (7.4-10.4); Platelet Count 369 10^3/uL (130-400); Red Blood Cell Count 3.22 10^6/uL (4.70-6.10); Red Cell Dist. Width 17.8 % (11.5-14.5); White Blood Cell Count 17.1 10^3/uL (4.8-10.8)
[2023-10-06 08:16] LABS: Blood Urea Nitrogen 10 mg/dl (9-20); Calcium 8.1 mg/dl (8.4-10.2); Carbon Dioxide 25 mmol/L (22-30); Chloride 100 mmol/L (98-107); Estimated Creatinine Clearance 121 ml/min; Glucose 111 mg/dl (70-99); Potassium 4.4 mmol/L (3.5-5.1); Sodium 127 mmol/L (135-145); eGFR > 60.00
[2023-10-06] MEDS: OMNIPAQUE 50 ML PO (08:52)
[2023-10-06] MEDS: CARDIZEM CD 120 MG PO (09:05)
[2023-10-06] MEDS: ASPIR LOW (ENTERIC COATED) 81 MG PO (09:05)
[2023-10-06] MEDS: ELIQUIS 5 MG PO ×2 (09:05→21:25)
[2023-10-06] MEDS: PROTONIX 40 MG PO (09:06)
[2023-10-06] MEDS: FLUSH (NSS) 2 FLUSH IV ×3 (09:09→17:08)
--- NOTE | 2023-10-06 09:17 | W.PN.HOSP.TC ---
Today's Communication/Plan
-
Follow CT A/P
Nephro consult
Assessment / Plan
Assessment / Plan
Assessment:
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
- s/p Exploratory laparotomy, lysis of adhesions, aorto-mesenteric bypass Tona thrombectomy, mesenteric arteriogram, patch angioplasty of aorto-mesenteric bypass 09/12
- CT-A 09/13 showing patient bypass, concern for bowel ischemia (see below)
Ischemic bowel c/b necrotic bowel
- s/p ex-lap 09/20: Necrotic and perforated entire transverse colon, ischemic right colon and terminal ileum, ischemic left colon, ? ischemia of the proximal jejunum. 70 cm terminal colon with entire right colon, transverse colon and descending colon
removed.
- s/p 2nd look ex-lap 09/22 with Murky fluid throughout the abdomen, viable remaining small intestine with excellent Doppler signals, Haily ileostomy
- Transitioned to oral Eliquis 10/01
- ID following for suspected secondary peritonitis. Continue Micafungin; Meropenem changed to Augmentin
- Hematology input about hypercoagulable assessments noted -continue with anticoagulant and follow with office for work up.
Recurrent abdo pain -Improved. Abdomen soft and no rebound . No N/V .Follow for now .cw PPI . CRS following. CT A/P today per CRS
Persistent neutrophilia-no changes to leukocytosis despite improving clinical improvement. I doubt still reactive to intra-abdominal infection. Patient on meropenem and micafungin. Currently on tapering steroids. Continue to follow and if
persistent despite coming off steroids look for myeloproliferative issues.Improving .
Ventilator dependent respiratory failure/acute hypoxic respiratory failure
- extubated 09/26
- Oxygenating well on nasal cannula
Post-op shock - multifactorial from sepsis/blood loss
- pressors weaned 09/26;Hemodynamics stable
- Echo normal EF
Delirium -post op -suspected TME. Off precedex.resolved
GI bleed related to ischemic colitis
Acute blood loss anemia
- monitor Hb -stable
- 1 unit given 09/27
- continue PPI
Hyponatremia due to SIADH (acute on chronic - baseline Na approx 131-134) - SIADH is likely due to recent surgery, also component of volume overload
- Echo normal
- Wt lower than baseline
- Changed Lasix to prn wt gain;On FR
- Recurrent hyponatremia - Consult Nephro .
HTN - elevated BP noted .pt not a known HTN - Cardizem initiated .Uptitrate as needed. Blood pressure mostly under goal.
Moderate COPD/emphysema - Off of steroids taper for flare.
CAD s/p prior hx of NSTEMI - asymptomatic without chest pain. On aspirin at home.
Hyperbilirubinemia- mostly indirect elevation, possible Gilbert's + hematomas related. Continue to follow.
Abnormal LFTs - improving after TPN stopped
Hx of DVT status post apixaban 03/2021 post left knee surgery
Chronic back pain - recent steroid taper. Continued mid back pain which is a equally troubling. No sciatica . plain xrays show loss of height of superior endplate t12,l4 . Pt had pull while lifting something at home but no fall or trauma. continue
symptomatic tx
Hyperglycemia
No hx of DM
- HbA1C 5.8
- was on high doses of insulin due to combination of steroid use and TPN.
- Now off of KATERINE insulin SSI as pt off of TPN
Tobacco abuse - remains actively smoking. Cessation recommended.
Nutrition - on TPN and liquid diet
Occlusive thrombus left arm - throughout the cephalic vein in the forearm, antecubital fossa, and distal aspect of the upper arm
- continue anticoagulation
DVT ppx: IV Heparin
Code: Full
CW PT tx
Anticipated Discharge: > 48 hours
Subjective/Interval History
-
Date of Service: October 06, 2023
Denies abdominal pain this morning. He is going for a CT of the abdomen pelvis. He tolerated his dinner last night okay.
Objective Data
-
Labs:
Laboratory Results
10/06/23
07:19
WBC 17.1 H
Hgb 9.7 L
Hct 29.1 L
Plt Count 369
Sodium 127 L
Potassium 4.4
Chloride 100
Carbon Dioxide 25
BUN 10
Creatinine 0.6 L
Glucose 111 H
Calcium 8.1 L
Vital Signs:
Vital Signs
Temp Pulse Resp BP Pulse Ox
98.2 F 88 16 173/78 99
10/06/23 07:15 10/06/23 07:15 10/06/23 07:15 10/06/23 07:15 10/06/23 07:15
I&O
10/05/23 10/06/23 10/07/23
06:59 06:59 06:59
Intake Total 1510 / 1510 1060 / 1060 240 / 240
Output Total 1860 / 1860 1880 / 1880 1600 / 1600
Balance -350 / -350 -820 / -820 -1360 / -1360
Review of Systems
-
Constitutional: Denies Fever
Respiratory: Denies Trouble Breathing
Cardiac: Denies Chest Pain
Neuro: Denies Dizzy
Physical Exam
-
HEENT: Moist Mucous Membranes
Respiratory: Clear to Auscultation
Cardiac: Regular Rhythm and S1/S2
GI: Soft, Nontender, Nondistended, Normal Bowel Sounds and Ostomy (working;LLQ wound drain present - drainage amount coming down)
Neuro: AO x 3
Psych: Calm
Data Reviewed
-
Labs: Labs Reviewed by me
--- NOTE | 2023-10-06 11:20 | W.PN.CRS1 ---
Today's Communication / Plan
-
CT A/P
Assessment/Plan
-
Assessment: 58-year-old male with complex hospitalization initially presenting with SMA thrombus/occlusion
POD #23 ex lap, SMA graft thrombectomy, patch angioplasty
POD #15 ex lap subtotal colectomy
POD #13 planned relook laparotomy, creation end ileostomy
Afebrile vital signs stable
WBC is 17.1
CHAY with feculent like outputs but abdominal exam stable and ostomy functioning
Plan:
1. Continue low residue diet
2. Antibiotics per ID
3. Follow-up CT A/P with p.o. and IV contrast.
Subjective Data
Procedure
09/21/2023- Exploratory laparotomy, subtotal colectomy (takedown of splenic flexure)
09/23/2023- 2nd look laparotomy and ileostomy (reopening of recent laparotomy)
Subjective Data
Date of Service: October 06, 2023
Patient states he has some back pain. He does not have abdominal pain today. He is tolerating low residue. His stoma has function.
Objective Data
-
Vital Signs
Temp Pulse Resp BP Pulse Ox
98.2 F 88 16 173/78 99
10/06/23 07:15 10/06/23 07:15 10/06/23 07:15 10/06/23 07:15 10/06/23 07:15
Intake & Output
10/05/23 10/06/23 10/07/23
06:59 06:59 06:59
Intake Total 1510 / 1510 1060 / 1060 240 / 240
Output Total 1860 / 1860 1880 / 1880 1600 / 1600
Balance -350 / -350 -820 / -820 -1360 / -1360
Intake:
Oral fluids 1410 / 1410 960 / 960 240 / 240
IV fluids (Total) 100 / 100 100 / 100
Output:
Liquid stool amount 550 / 550 950 / 950 800 / 800
Ileostomy 550 / 550 950 / 950 800 / 800
Drain Output (Total) 210 130 / 130 100 / 100
Left Filiberto-Roche B 130 / 130 100 / 100
Urine, Voided 1100 / 1100 800 / 800 700 / 700
Other:
Number of approximated MODERATE 1
amounts of urine
How many times incontinent 1
MODERATE amount urine
Lab Results
10/06/23 07:19
10/06/23 07:19
Physical Exam
-
General: No Acute Distress and AOx3
Abdomen: Soft, Non Distended, Non Tender and Other (left drain with feculent output)
Wound: Dressing in Place
--- NOTE | 2023-10-06 12:42 | W.CON.NEPH ---
Consultation
-
Date/Time Consultation Requested: 10/06/23 9am
Date/Time Consultation Performed: 10/06/23 12p
Requesting Provider: Dr. Jose
Performing Provider: Dr. Tomas
Reason for Consultation: hyponatremia
Medical History
-
Chief Complaint: hyponatremia
History of Present Illness:
This is a 58-year-old gentleman who has significant medical history of mesenteric ischemia with bypass who presented to the emergency room on September 11 with severe abdominal pain. He was found to have included 1 complete occlusion of his celiac and
SMA bypass graft. He was taken to the operating room for thrombectomy as well as patch angioplasty. His course was further complicated by ischemia and he underwent subtotal colectomy with eventual ileostomy creation. He had septic shock and was
on the ventilator for a brief period of time. He has since improved and was sent to the floor. He has not been hypertensive. In the last 4 days he has also now developed worsening hyponatremia. Prior labs have shown some mild hyponatremia in the
past. He continues on a low residue diet without issues other than poor appetite. He does not drink excessive fluids. He is currently on diltiazem for his hypertension and Eliquis for his thrombosis. Hematology is undergoing workup for his
thrombosis.
Past Medical History
Mesenteric ischemia, SMA/celiac, left lower leg DVT, left knee arthroscopy, lumbar discectomy, hemorrhoidectomy, hypertension
Social History
Tobacco: Smoker
Alcohol: None
Family History
no CKD
Allergies / Home Medications
Allergy/AdvReac Type Severity Reaction Status Date / Time
No Known Allergies Allergy Verified 09/12/23 17:54
�Medication �Instructions �Recorded �Confirmed �Type
aspirin 81 mg tablet,delayed 81 mg PO DAILY Blood Clot 09/12/23 09/12/23 History
release Prevention/Tx
ibuprofen 200 mg capsule 800 mg PO TID PRN mild pain/fever 09/12/23 09/12/23 History
melatonin 5 mg tablet 20 mg PO HS Sleep 09/12/23 09/12/23 History
methylprednisolone 4 mg tablets in 4 mg PO UD Anti-Inflammatory 09/12/23 09/12/23 History
a dose pack
Review of Systems
-
No chest pain or shortness of breath. Some abdominal pain. No nausea or vomiting. No issues with urine output. He has high-volume ileostomy output. The remainder of the complete review of systems was negative.
Physical Exam
Vital Signs
Vital Signs
Temp Pulse Resp BP Pulse Ox
98.2 F 88 16 173/78 99
10/06/23 07:15 10/06/23 07:15 10/06/23 07:15 10/06/23 07:15 10/06/23 07:15
Lab Results
WBC 17.1 10^3/uL (4.8-10.8) H 10/06/23 07:19
RBC 3.22 10^6/uL (4.70-6.10) L 10/06/23 07:19
Hgb 9.7 g/dL (13.0-18.0) L 10/06/23 07:19
Hct 29.1 % (39.0-52.0) L 10/06/23 07:19
Plt Count 369 10^3/uL (130-400) 10/06/23 07:19
Sodium 127 mmol/L (135-145) L 10/06/23 07:19
Potassium 4.4 mmol/L (3.5-5.1) 10/06/23 07:19
Chloride 100 mmol/L (98-107) 10/06/23 07:19
Carbon Dioxide 25 mmol/L (22-30) 10/06/23 07:19
BUN 10 mg/dl (9-20) 10/06/23 07:19
Creatinine 0.6 mg/dL (0.7-1.3) L 10/06/23 07:19
eGFR > 60.00 10/06/23 07:19
Glucose 111 mg/dl (70-99) H 10/06/23 07:19
Calcium 8.1 mg/dl (8.4-10.2) L 10/06/23 07:19
Phosphorus 4.5 mg/dl (2.5-4.5) 09/29/23 05:09
Hvs-E-Hspwqwyedzm Pept 1080 pg/ml 09/20/23 10:03
Albumin 2.3 g/dl (3.5-5.0) L 10/03/23 09:21
Physical Exam
General: AOx3
HEENT: PERRL, EOMI, Anicteric, Conjunctivae Clear, Ear/Nose Intact, Hearing Normal, Oropharynx Clear/Moist, Neck Supple, Trachea Midline and No Thyromegaly
Respiratory: Clear
Cardiac: Regular Rate/Rhythm
Abdomen: Soft, Nontender, Nondistended, Normal Bowel Sounds and No Hepatosplenomegaly
Skin: No Rash, No Cyanosis and Normal Turgor
Psych: Mood/afflect pleasant and Insight/judgement good
Assessment/Plan
-
Assessment:
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
s/p Exploratory laparotomy, lysis of adhesions, aorto-mesenteric bypass Tona thrombectomy, mesenteric arteriogram, patch angioplasty of aorto-mesenteric bypass 09/12
Ischemic bowel c/b necrotic bowel
- s/p ex-lap 09/20: Necrotic and perforated entire transverse colon, ischemic right colon and terminal ileum, ischemic left colon, ? ischemia of the proximal jejunum. 70 cm terminal colon with entire right colon, transverse colon and descending colon
removed.
- s/p 2nd look ex-lap 09/22 with Murky fluid throughout the abdomen, viable remaining small intestine with excellent Doppler signals, Haily ileostomy
GI bleed related to ischemic colitis
Hyponatremia due to SIADH (acute on chronic - baseline Na approx 131-134)
HTN
Moderate COPD/emphysema - Off of steroids taper for flare.
CAD s/p prior hx of NSTEMI - asymptomatic without chest pain. On aspirin at home.
Occlusive thrombus left arm - throughout the cephalic vein in the forearm, antecubital fossa, and distal aspect of the upper arm
Plan
-samsca today
-eventually daily lasix 20mg
-follow BMP
-may need more diltiazem if BP remains elevated
Data Reviewed
-
Radiology: Image Personally Visualized and interpreted (Chest x-ray on September 28, 2023 by my reading shows right lower lobe infiltrate)
CT Scan: Report Reviewed by me (CT head on September 29, 2023 shows no acute disease)
Labs: Labs Reviewed by me
Old Records: Reviewed
[2023-10-06] MEDS: MYCAMINE 105 MG IV (14:11)
[2023-10-06] MEDS: SAMSCA 15 MG PO (14:15)
--- NOTE | 2023-10-06 14:26 | CON.MD ---
Documented by User: Ashley Crane PA-C 10/06/23 18:19
Consultation - Medical
-
Referring Provider:
Chief Complaint: Debility s/p multiple surgeries due to Mesenteric ischemia.
History of Present Illness: 58-year-old man with PMH of (peripheral vascular disease, smoker, COPD, prior coronary artery disease prior history of mesenteric bypass in 2020) presented to ED with complaint of subacute abdominal pain. Patient had
stopped Plavix and a statin on his own and was only taking aspirin since January 2023. CT abdomen pelvis demonstrated bowel ischemia with thrombosis of mesenteric bypass. Patient was taking emergently to the operating room by vascular surgery.
Underwent exploratory laparotomy and underwent lysis of adhesions, thrombectomy of Aortomesenteric bypass, mesenteric arteriogram, with patch angioplasty on 09/13/2023. (09/21/2023) Exploratory laparotomy, subtotal colectomy (takedown of splenic
flexure). (09/23/2023) 2nd look laparotomy and ileostomy (reopening of recent laparotomy). He had septic shock and was on ventilator for a brief period of time. He has since improved and was sent to the floor. He has not been hypertensive. In the
last 4 days he has also now developed worsening hyponatremia. Prior labs have shown some mild hyponatremia in the past. He continues on a low residue diet without issues other than poor appetite. Patient feels tired. had trouble sleeping last
night on Melatonin. Was given morphine and was able to fall asleep.
U/S of left upper extremity
Occlusive thrombus throughout the cephalic vein in the forearm, antecubital fossa, and distal aspect of the upper arm, which is not considered a component of the deep venous system. No other venous thrombus, including the deep venous/brachial vein.
Past Medical History: Mesenteric ischemia, SMA/celiac,CAD, h/o NSTEMI, ASCVD, left lower leg DVT s/p eliquis 03/2021, left knee arthroscopy, lumbar discectomy, hemorrhoidectomy, hypertension
Procedure History: exploratory laparotomy and underwent lysis of adhesions, thrombectomy of Aortomesenteric bypass, mesenteric arteriogram, with patch angioplasty on 09/13/2023. (09/21/2023) Exploratory laparotomy, subtotal colectomy (takedown of
splenic flexure). (09/23/2023) 2nd look laparotomy and ileostomy (reopening of recent laparotomy). Left knee arthroscopic surgery, umbar discectomy, hemorrhoidectomy
Family History: non contributory
Social History:
Functional Level Premorbidly: Independent with all activities
Functional Level Currently: Bed mobility�minimal assistance, transfer sit to stand�stand to sit�min assist, Ambulation 10 feet, 24 feet x 1 with rolling walker assist. Walks with a slow gait, narrow base of support, cues to keep feet within rolling
walker
Tobacco: Smoker
Alcohol: Denies
Drug use: Denies
Lives with: Alone in Apartment
24-hour assistance available:
Number of floors: 2
# steps to enter: 12
# steps to second floor: FF
Potential First floor set up:
Driving: yes
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
�
Allergies:
Allergy/AdvReac Type Severity Reaction Status Date / Time
No Known Allergies Allergy Verified 09/12/23 17:54
Review of Systems:
Constitutional: (x) tired
Eye: (x) Normal _
Ear/Nose/Throat: (x) Normal _
Respiratory: (x) Normal _
Cardiovascular: (x) h/o mi, occlusive thrombous - left UE
Gastrointestinal: (x) bowel surgeries
Genitourinary: (x) Normal _
Musculoskeletal: (x) Normal _
Integumentary: (x) Normal _
Neurologic: (x) Normal _
Psychiatric: (x) Normal _
Endocrine: (x) Normal _
Hematologic/Lymphatic: (x) Normal _
Allergic/Immunologic: (x) Normal _
Medications:
Active Current Visit Medication List
Category Date Time Status
Apixaban [Eliquis] Med 10/02/23 08:45 Active
5 mg PO BID
Aspirin Low Dose EC [Aspir Low (Enteric Coated)] Med 10/01/23 10:00 Active
81 mg PO DAILY
Diltiazem Extended Release [Cardizem Cd] Med 10/01/23 08:00 Active
120 mg PO DAILY
Flush (0.9% Sodium Chloride) [Flush (Nss)] Med 09/12/23 22:00 Active
See Dose Instructions IV PER PROTOCOL
Glucagon [GlucaGen] Med 09/19/23 19:35 Active
1 mg IM PRN PRN
HydrALAZINE [Apresoline] Med 09/28/23 11:48 Active
10 mg IV Q6HPRN PRN
Meropenem [Merrem] Med 10/03/23 10:00 Active
500 mg IV Q6H
Micafungin Sodium [Mycamine] 100 mg Med 09/30/23 12:00 Active
Dextrose 5%/Water 100 ml [D5w] 100 ml
IV Q24H
Morphine Sulfate Med 09/28/23 15:14 Active
2 mg IV Q4HPRN PRN
Ondansetron Injectable [Zofran] Med 09/13/23 00:43 Active
4 mg IV Q6HPRN PRN
Oxycodone [Roxicodone] Med 10/02/23 08:40 Active
5 mg PO Q4HPRN PRN
Pantoprazole [Protonix] Med 10/03/23 08:00 Active
40 mg PO DAILY
Phenol 1.4% [place] [Chloraseptic/Sore Throat [place]] Med 09/19/23 09:01 Active
See Dose Instructions PO Q2HPRN PRN
Sterile Water [Sterile Water For Injection] Med 10/03/23 10:00 Active
10 ml IV Q6H
Zolpidem Tartrate [Ambien] Med 10/06/23 20:00 Active
5 mg PO DAILY@1999
Vitals:
Temp Pulse Resp BP Pulse Ox
98.2 F 88 16 173/78 99
10/06/23 07:15 10/06/23 07:15 10/06/23 07:15 10/06/23 07:15 10/06/23 07:15
Height 5 ft 11 in
Actual Weight 65.374 kg
Body Mass Index (BMI) 20.1
Physical Exam:
General Appearance/Observation: Well-developed, slim individual in no apparent distress.
Pain/Comfort Assessment: Denies at the moment
Mood/Affect: Appropriate, pleasant
Integumentary/Operative Site:
�� Pressure Ulcer Evaluation: absent over heels.
��
�� Other Type of Wound:
�� vertical abdominal incision with christin open to air
Eyes: Conjunctiva/Lids: normal ��� Pupils: pupils equal round and reactive to light and Accommodation
Ears/Nose/Throat: oral mucosa moist,� throat clear.������������ Lips/Teeth/Gums: normal
Neck: No muscle spasm or tenderness
Cardiovascular: Heart: regular, no murmur
Pulses: dorsalis pedis 2+ bilaterally
Respiratory: Respiratory Effort/Chest Expansion: normal ������� Auscultation: Clear to auscultation bilaterally
Gastrointestinal: abdomen not tender, no distension, normal abdominal bowel sounds
colostomy bag noted and CHAY with feculent like outputs
Genitourinary: No Chavez
Extremities: Edema: None Cyanosis: None Trophic changes: None
Neurology Exam:
Orientation: Alert, Oriented to self, Time, Place
Memory: Intact for immediate medical concerns
Higher cortical function
Comprehension: Intact
Two step command: Intact
Naming: Intact
Cranial Nerves:
�� CNII: Pupillary light reflex: Intact��� Visual Field: Intact
�� CN III, IV, : Extraocular muscles: Intact
�� CN V: Facial Sensation at Forehead: Intact, Maxilla: Intact, Mandible: Intact
�� CN VII: Facial movement: Symmetric
�� CN VIII: Hearing: Normal
�� CN IX/X: Speech & swallow: Normal, Position of Uvula: Midline
�� CN XI: Shoulder shrug: Symmetric
�� CN XII: Tongue protrusion: Midline
Sensory:
�� Light touch: Intact in bilateral upper and lower extremities
��
Reflexes:
�� Biceps: 2+ bilaterally
�� Brachioradialis: 1+ bilaterally
�� Triceps: 2+ bilaterally
�� Patellar: 1+ bilaterally
�� Achilles: 1+ bilaterally
�� Babinski: Down going bilaterally
�� Clonus: None
�� Yahir: Negative bilaterally
Cerebellar: Dysmetria/Ataxia: None
Musculoskeletal:
Motor: (Manual muscle scale 0-5)
Muscle SA EF WE EE FF FA HF KE DF EHL PF
Right� 5 5 5 5 5 5 4 4 5 5 5
Left 5 4 5 4 5 5 4 4 5 5 5
Tone: Normal in all extremities
Range of Motion: Passively within normal limits in all extremities.
Lab Results
Labs
WBC 17.1 10^3/uL (4.8-10.8) H 10/06/23 07:19
RBC 3.22 10^6/uL (4.70-6.10) L 10/06/23 07:19
Hgb 9.7 g/dL (13.0-18.0) L 10/06/23 07:19
Hct 29.1 % (39.0-52.0) L 10/06/23 07:19
MCV 90.4 fL (80.0-94.0) 10/06/23 07:19
MCH 30.1 pg (27.0-31.0) 10/06/23 07:19
MCHC 33.3 g/dL (33.0-37.0) 10/06/23 07:19
RDW 17.8 % (11.5-14.5) H 10/06/23 07:19
Plt Count 369 10^3/uL (130-400) 10/06/23 07:19
Plt Count Comment Yes 09/16/23 03:56
MPV 11.3 fL (7.4-10.4) H 10/06/23 07:19
Abs Immat Gran (auto) 0.9 10^3/uL (0-0.05) H 09/29/23 05:09
Absolute Neuts (auto) 15.6 10^3/uL (1.4-6.5) H 09/29/23 05:09
Absolute Lymphs (auto) 2.2 10^3/uL (1.2-3.4) 09/29/23 05:09
Absolute Monos (auto) 1.5 10^3/uL (0.1-0.6) H 09/29/23 05:09
Absolute Eos (auto) 0.0 10^3/uL (0-0.7) 09/29/23 05:09
Absolute Basos (auto) 0.1 10^3/uL (0-0.2) 09/29/23 05:09
CBC Comment 09/27/23 03:44
Total Counted 100 09/16/23 03:56
Immature Gran % 4.6 % (0-0.5) H 09/29/23 05:09
Neutrophils % 76.3 % (42.2-75.2) H 09/29/23 05:09
Lymphocytes % 11.0 % (20.5-51.1) L 09/29/23 05:09
Monocytes % 7.6 % (1.7-9.3) 09/29/23 05:09
Eosinophils % 0.0 % (0-6) 09/29/23 05:09
Basophils % 0.5 % (0-2) 09/29/23 05:09
Nucleated RBC % 0.8 % (-) 09/29/23 05:09
Abs Neuts (Manual) 18.3 10^3/uL (1.4-6.5) H 09/16/23 03:56
Segmented Neutrophils 69 % (42-75) 09/16/23 03:56
Band Neutrophils 14 % (0-3) H D 09/16/23 03:56
Lymphocytes (Manual) 10 % (20-51) L 09/16/23 03:56
Monocytes (Manual) 3 % (2-9) 09/16/23 03:56
Eosinophils (Manual) 1 % (0-6) 09/16/23 03:56
Metamyelocytes 3 % (-) 09/16/23 03:56
Myelocytes 6 % (-) 09/15/23 03:48
Normal RBC Morphology Yes 09/16/23 03:56
Polychromasia Slight 09/15/23 03:48
Hypochromasia Slight 09/15/23 03:48
Anisocytosis Slight 09/15/23 03:48
Tear Drop Cells 1+ 09/15/23 03:48
[place] Cells 1+ 09/15/23 03:48
Retic Count 2.7 % (0.4-2.8) 09/28/23 03:33
Haptoglobin 97 mg/dL (30-200) 09/24/23 03:09
PT 17.8 Sec (11.4-14.6) H 09/13/23 03:17
INR 1.49 09/13/23 03:17
APTT Cancelled 10/02/23 12:30
pH 7.48 (7.35-7.45) H 09/27/23 11:51
pCO2 43 mmHg (35-48) 09/27/23 11:51
pO2 87 mmHg (83-108) 09/27/23 11:51
HCO3 32.0 mmol/L (21-28) H 09/27/23 11:51
Base Excess 7.8 mmol/L 09/27/23 11:51
ABG O2 Sat (Measured) 99.1 % (94-98) H 09/27/23 11:51
O2 Delivery Level 09/27/23 11:51
Sodium 127 mmol/L (135-145) L 10/06/23 07:19
Potassium 4.4 mmol/L (3.5-5.1) 10/06/23 07:19
Chloride 100 mmol/L (98-107) 10/06/23 07:19
Carbon Dioxide 25 mmol/L (22-30) 10/06/23 07:19
BUN 10 mg/dl (9-20) 10/06/23 07:19
Creatinine 0.6 mg/dL (0.7-1.3) L 10/06/23 07:19
Estimated Creat Clear 121 ml/min 10/06/23 07:19
eGFR > 60.00 10/06/23 07:19
Glucose 111 mg/dl (70-99) H 10/06/23 07:19
Hemoglobin A1c 5.8 % (4.0-5.6) H 09/13/23 03:17
Lactic Acid 1.5 mmol/L (0.7-2.0) 09/21/23 17:38
Uric Acid 1.9 mg/dl (3.5-8.5) L 09/22/23 15:57
Calcium 8.1 mg/dl (8.4-10.2) L 10/06/23 07:19
Ionized Calcium Cancelled 09/24/23 06:00
Phosphorus 4.5 mg/dl (2.5-4.5) 09/29/23 05:09
Magnesium 2.7 mg/dl (1.6-2.3) H 09/29/23 05:09
Total Bilirubin 1.1 mg/dl (0.2-1.3) 10/03/23 09:21
Direct Bilirubin 1.0 mg/dl (0.0-0.4) H 09/23/23 04:46
AST 46 U/L (17-59) 10/03/23 09:21
ALT 71 U/L (0-50) H 10/03/23 09:21
Alkaline Phosphatase 176 U/L (38-126) H 10/03/23 09:21
Lactate Dehydrogenase 340 U/L (120-246) H 09/24/23 03:09
Jzb-Q-Hshyzzhnsyj Pept 1080 pg/ml 09/20/23 10:03
Total Protein 4.9 g/dl (6.3-8.2) L 10/03/23 09:21
Albumin 2.3 g/dl (3.5-5.0) L 10/03/23 09:21
Triglycerides 125 mg/dl (10-149) 09/22/23 03:38
Total Cholesterol 152 mg/dl (50-199) 09/13/23 03:17
LDL Cholesterol, Calc 96 mg/dl 09/13/23 03:17
VLDL Cholesterol, Calc 13 mg/dl (0-30) 09/13/23 03:17
HDL Cholesterol 43 mg/dl 09/13/23 03:17
Lipase 700 U/L (23-300) H 10/03/23 09:21
Procalcitonin 1.48 ng/ml (0.0-0.25) H 09/25/23 05:02
Urine Color Yellow 09/22/23 15:57
Urine Clarity Clear (Clear) 09/22/23 15:57
Urine pH 5.0 (5.0-9.0) 09/22/23 15:57
Ur Specific [place] 1.015 (<1.030) 09/22/23 15:57
Urine Ketones Trace (Negative) A 09/22/23 15:57
Urine Occult Blood Negative (Negative) 09/22/23 15:57
Urine Nitrite Negative (Negative) 09/22/23 15:57
Urine Bilirubin 1+ (Negative) A 09/22/23 15:57
Urine Urobilinogen Negative (Neg - 1+) 09/22/23 15:57
Ur Leukocyte Esterase Negative (Negative) 09/22/23 15:57
Urine Osmolality 444 mOsm/kg (300-900) 10/05/23 14:07
Urine Creatinine 77.500 mg/dl 09/22/23 15:57
Urine Sodium 120 mmol/L (30-90) H 10/05/23 14:07
Urine Glucose Negative (Negative) 09/22/23 15:57
Urine Albumin Negative (Neg - Trace) 09/22/23 15:57
Vancomycin Peak 25.9 ug/ml (18-26) 09/21/23 20:48
Vancomycin Trough 14.7 ug/ml (5-20) 09/22/23 03:38
Beta-2-GPI IgG Ab <10 SGU (<=20) 09/16/23 14:52
Beta-2-GPI IgA Ab 10 SABINE (<=20) 09/16/23 14:52
Beta-2-GPI IgM Ab <10 SMU (<=20) 09/16/23 14:52
Phosphatidylserine IgG 1 GPS (0-15) 09/16/23 14:52
Phosphatidylserine IgA 0 APS (0-19) 09/16/23 14:52
Phosphatidylserine IgM 0 MPS (0-21) 09/16/23 14:52
Anti-Cardiolipin IgG Ab <10 GPL (<=14) 09/16/23 14:52
Anti-Cardiolipin IgA Ab <10 APL (<=11) 09/16/23 14:52
Anti-Cardiolipin IgM Ab <10 MPL (<=12) 09/16/23 14:52
SARS-CoV-2 Antigen Negative (Negative) 09/12/23 18:05
POC Glucose 132 mg/dl (70-99) H 10/04/23 11:25
Blood Type AB POS 09/28/23 04:42
Antibody Screen Negative (Negative) 09/28/23 04:42
Crossmatch IS Only See Detail 09/28/23 04:42
�
Diagnostic Results: as per HPI
Assessment 58-year-old man with PMH of (peripheral vascular disease, smoker, COPD, prior coronary artery disease prior history of mesenteric bypass in 2020) presented to ED with complaint of subacute abdominal pain. He is s/P thrombectomy, patch
angioplasty, subtotal colectomy with ileostomy creation.
Plan
PT/OT to increase independence with ADLs, improve balance, coordination, endurance, strength, mobility, community reintegration, decreased burden of care on others and family education.
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
Status post thrombectomy, patch angioplasty, subtotal colectomy with ileostomy creation. Cont Meropenem 500mg IV q 6 hours. Monitor. Pain control.
HTN: Diltiazem 120mg qd, hydralazine 10 mg IV every 6 as needed
Coronary artery disease : Aspirin, statin, beta-kirt
Anemia: Multifactorial. Status post surgery- Hgb 9.7
Hyponatremia: 127-due to SIADH (acute on chronic - baseline Na approx 131-134). [facility], possible daily Lasix. Follow BMP.
Leukocytosis:17.1
COPD/emphysema: Off of taper steroids.
Occlusive thrombus left arm - throughout the cephalic vein in the forearm, antecubital fossa, and distal aspect of the upper arm. Eliquis 5mg bid
Psych: Psychology consult.� Monitor mood, adjust medications as needed.
Insomnia: Ambien 5mg qd
Skin: monitor for pressure sores/rashes/lesions.
Pain: acetaminophen, morphine sulfate 2 mg IV every 4 as needed, oxycodone 5mg as needed. Pain must be stable on PO pain meds prior to transfer.
FEN: Low residual diet
Bowel: colostomy
Bladder: Time void, PVRs, PRN straight cath.
Tobacco Abuse: Smoking cessation counseling. Need to find out why smoking whether it is nicotine withdrawal, habit, or oral fixation.
GI Prophylaxis: Pantoprazole
DVT Prophylaxis: Eliquis 5mg bid
Pulmonary: Incentive spirometry
Safety: Continue to reinforce assistance with all transfers.
Code Status:� Full code
Dispo (date/plan/equipment needs): Home with family care.� Social history reviewed.
Functional and Medical Goals: Modified Independent with ADL�s, ambulation, transfers
Summary of recommendations:
- Discharge Destination: Patient would benefit from acute inpatient rehabilitation post thrombectomy, patch angioplasty, subtotal colectomy with ileostomy creation and now with fatigue, deconditioning with functional level of Ambulating 10 feet, 24
feet x 1 with rolling walker assist. Walks with a slow gait, narrow base of support, cues to keep feet within rolling walker. Bed mobility and transfer �min assist
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
Status post thrombectomy, patch angioplasty, subtotal colectomy with ileostomy creation. Cont Meropenem 500mg IV q 6 hours. Monitor. Pain control.
HTN: Diltiazem 120mg qd, hydralazine 10 mg IV every 6 as needed. Must be on PO medications and blood pressure must be less than 180 systolic and 100 diastolic for 24 hours before being stable for transfer to acute rehab.
Anemia: Multifactorial. Status post surgery- Hgb 9.7
Hyponatremia: 127-due to SIADH (acute on chronic - baseline Na approx 131-134). Per nephrology-[facility] today, may potentially need daily Lasix 20mg . Follow BMP. Fluid restriction. Monitor
Bladder: Time void, PVRs, PRN straight cath.
Tobacco Abuse: Smoking cessation counseling. Need to find out why smoking whether it is nicotine withdrawal, habit, or oral fixation.
GI Prophylaxis: Pantoprazole
DVT Prophylaxis: Eliquis 5mg bid
Pulmonary: Incentive spirometry
Pain: acetaminophen, morphine sulfate 2 mg IV every 4 as needed, oxycodone 5mg as needed. Pain must be stable on PO pain meds for at least 24 hours prior to transfer.
FEN: Low residual diet
This note was dictated using a voice recognition system. 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 If you believe there are any discrepancies, please notify our office.

Documented by User: Erasmo Damon MD 10/07/23 11:53
Consultation - Medical
-
Referring Provider: Dr. Abraham Jose
Chief Complaint: Debility s/p multiple surgeries due to Mesenteric ischemia.
History of Present Illness: 58-year-old man with PMH of (peripheral vascular disease, smoker, COPD, prior coronary artery disease prior history of mesenteric bypass in 2020) presented to ED with complaint of subacute abdominal pain. Patient had
stopped Plavix and a statin on his own and was only taking aspirin since January 2023. CT abdomen pelvis demonstrated bowel ischemia with thrombosis of mesenteric bypass. Patient was taking emergently to the operating room by vascular surgery.
Underwent exploratory laparotomy and underwent lysis of adhesions, thrombectomy of Aortomesenteric bypass, mesenteric arteriogram, with patch angioplasty on 09/13/2023. (09/21/2023) Exploratory laparotomy, subtotal colectomy (takedown of splenic
flexure). (09/23/2023) 2nd look laparotomy and ileostomy (reopening of recent laparotomy). He had septic shock and was on ventilator for a brief period of time. He has since improved and was sent to the floor. He has not been hypertensive. In the
last 4 days he has also now developed worsening hyponatremia. Prior labs have shown some mild hyponatremia in the past. He continues on a low residue diet without issues other than poor appetite. Patient feels tired. had trouble sleeping last
night on Melatonin. Was given morphine and was able to fall asleep.
U/S of left upper extremity
Occlusive thrombus throughout the cephalic vein in the forearm, antecubital fossa, and distal aspect of the upper arm, which is not considered a component of the deep venous system. No other venous thrombus, including the deep venous/brachial vein.
Past Medical History: Mesenteric ischemia, SMA/celiac,CAD, h/o NSTEMI, ASCVD, left lower leg DVT s/p eliquis 03/2021, left knee arthroscopy, lumbar discectomy, hemorrhoidectomy, hypertension
Procedure History: exploratory laparotomy and underwent lysis of adhesions, thrombectomy of Aortomesenteric bypass, mesenteric arteriogram, with patch angioplasty on 09/13/2023. (09/21/2023) Exploratory laparotomy, subtotal colectomy (takedown of
splenic flexure). (09/23/2023) 2nd look laparotomy and ileostomy (reopening of recent laparotomy). Left knee arthroscopic surgery, umbar discectomy, hemorrhoidectomy
Family History: non contributory
Social History:
Functional Level Premorbidly: Independent with all activities
Functional Level Currently: Bed mobility�minimal assistance, transfer sit to stand�stand to sit�min assist, Ambulation 10 feet, 24 feet x 1 with rolling walker assist. Walks with a slow gait, narrow base of support, cues to keep feet within rolling
walker
Tobacco: Smoker
Alcohol: Denies
Drug use: Denies
Lives with: Alone in Apartment
24-hour assistance available: No
Number of floors: 2
# steps to enter: 12
# steps to second floor: FF
Potential First floor set up: No
Driving: yes
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
�
Allergies:
Allergy/AdvReac Type Severity Reaction Status Date / Time
No Known Allergies Allergy Verified 09/12/23 17:54
Review of Systems:
Constitutional: (x) tired
Eye: (x) Normal _
Ear/Nose/Throat: (x) Normal _
Respiratory: (x) Normal _
Cardiovascular: (x) h/o mi, occlusive thrombous - left UE
Gastrointestinal: (x) bowel surgeries
Genitourinary: (x) Normal _
Musculoskeletal: (x) Normal _
Integumentary: (x) Normal _
Neurologic: (x) Normal _
Psychiatric: (x) Normal _
Endocrine: (x) Normal _
Hematologic/Lymphatic: (x) Normal _
Allergic/Immunologic: (x) Normal _
Medications:
Active Current Visit Medication List
Category Date Time Status
Apixaban [Eliquis] Med 10/02/23 08:45 Active
5 mg PO BID
Aspirin Low Dose EC [Aspir Low (Enteric Coated)] Med 10/01/23 10:00 Active
81 mg PO DAILY
Diltiazem Extended Release [Cardizem Cd] Med 10/01/23 08:00 Active
120 mg PO DAILY
Flush (0.9% Sodium Chloride) [Flush (Nss)] Med 09/12/23 22:00 Active
See Dose Instructions IV PER PROTOCOL
Glucagon [GlucaGen] Med 09/19/23 19:35 Active
1 mg IM PRN PRN
HydrALAZINE [Apresoline] Med 09/28/23 11:48 Active
10 mg IV Q6HPRN PRN
Meropenem [Merrem] Med 10/03/23 10:00 Active
500 mg IV Q6H
Micafungin Sodium [Mycamine] 100 mg Med 09/30/23 12:00 Active
Dextrose 5%/Water 100 ml [D5w] 100 ml
IV Q24H
Morphine Sulfate Med 09/28/23 15:14 Active
2 mg IV Q4HPRN PRN
Ondansetron Injectable [Zofran] Med 09/13/23 00:43 Active
4 mg IV Q6HPRN PRN
Oxycodone [Roxicodone] Med 10/02/23 08:40 Active
5 mg PO Q4HPRN PRN
Pantoprazole [Protonix] Med 10/03/23 08:00 Active
40 mg PO DAILY
Phenol 1.4% [place] [Chloraseptic/Sore Throat [place]] Med 09/19/23 09:01 Active
See Dose Instructions PO Q2HPRN PRN
Sterile Water [Sterile Water For Injection] Med 10/03/23 10:00 Active
10 ml IV Q6H
Zolpidem Tartrate [Ambien] Med 10/06/23 20:00 Active
5 mg PO DAILY@1999
Vitals:
Temp Pulse Resp BP Pulse Ox
98.2 F 88 16 173/78 99
10/06/23 07:15 10/06/23 07:15 10/06/23 07:15 10/06/23 07:15 10/06/23 07:15
Height 5 ft 11 in
Actual Weight 65.374 kg
Body Mass Index (BMI) 20.1
Physical Exam:
General Appearance/Observation: Well-developed, slim individual with some generalized muscle atrophy in no apparent distress.
Pain/Comfort Assessment: Denies at the moment
Mood/Affect: Appropriate, pleasant
Integumentary/Operative Site:
�� Pressure Ulcer Evaluation: absent over heels.
�� Other Type of Wound:
�� vertical abdominal incision with christin open to air
Eyes: Conjunctiva/Lids: normal ��� Pupils: pupils equal round and reactive to light and Accommodation
Ears/Nose/Throat: oral mucosa moist,� throat clear.������������ Lips/Teeth/Gums: normal
Neck: No muscle spasm or tenderness
Cardiovascular: Heart: regular, no murmur
Pulses: dorsalis pedis 2+ bilaterally
Respiratory: Respiratory Effort/Chest Expansion: normal ������� Auscultation: Clear to auscultation bilaterally
Gastrointestinal: abdomen not tender, no distension, normal abdominal bowel sounds
colostomy bag noted and CHAY with feculent like outputs
Genitourinary: No Chavez
Extremities: Edema: None Cyanosis: None Trophic changes: None
Neurology Exam:
Orientation: Alert, Oriented to self, Time, Place
Memory: Intact for immediate medical concerns
Higher cortical function
Comprehension: Intact
Two step command: Intact
Naming: Intact
Cranial Nerves:
�� CNII: Pupillary light reflex: Intact��� Visual Field: Intact
�� CN III, IV, : Extraocular muscles: Intact
�� CN V: Facial Sensation at Forehead: Intact, Maxilla: Intact, Mandible: Intact
�� CN VII: Facial movement: Symmetric
�� CN VIII: Hearing: Normal
�� CN IX/X: Speech & swallow: Normal, Position of Uvula: Midline
�� CN XI: Shoulder shrug: Symmetric
�� CN XII: Tongue protrusion: Midline
Sensory:
�� Light touch: Intact in bilateral upper and lower extremities
��
Reflexes:
�� Biceps: 2+ bilaterally
�� Brachioradialis: 1+ bilaterally
�� Triceps: 2+ bilaterally
�� Patellar: 1+ bilaterally
�� Achilles: 1+ bilaterally
�� Babinski: Down going bilaterally
�� Clonus: None
�� Yahir: Negative bilaterally
Cerebellar: Dysmetria/Ataxia: None
Musculoskeletal: Motor: (Manual muscle scale 0-5)
Muscle SA EF WE EE FF FA HF KE DF EHL PF
Right� 5 5 5 5 5 5 3 4 5 5 5
Left 5 4 5 4 5 5 3 4 5 5 5
Tone: Normal in all extremities
Range of Motion: Passively within normal limits in all extremities.
Lab Results
Labs
WBC 17.1 10^3/uL (4.8-10.8) H 10/06/23 07:19
RBC 3.22 10^6/uL (4.70-6.10) L 10/06/23 07:19
Hgb 9.7 g/dL (13.0-18.0) L 10/06/23 07:19
Hct 29.1 % (39.0-52.0) L 10/06/23 07:19
MCV 90.4 fL (80.0-94.0) 10/06/23 07:19
MCH 30.1 pg (27.0-31.0) 10/06/23 07:19
MCHC 33.3 g/dL (33.0-37.0) 10/06/23 07:19
RDW 17.8 % (11.5-14.5) H 10/06/23 07:19
Plt Count 369 10^3/uL (130-400) 10/06/23 07:19
Plt Count Comment Yes 09/16/23 03:56
MPV 11.3 fL (7.4-10.4) H 10/06/23 07:19
Abs Immat Gran (auto) 0.9 10^3/uL (0-0.05) H 09/29/23 05:09
Absolute Neuts (auto) 15.6 10^3/uL (1.4-6.5) H 09/29/23 05:09
Absolute Lymphs (auto) 2.2 10^3/uL (1.2-3.4) 09/29/23 05:09
Absolute Monos (auto) 1.5 10^3/uL (0.1-0.6) H 09/29/23 05:09
Absolute Eos (auto) 0.0 10^3/uL (0-0.7) 09/29/23 05:09
Absolute Basos (auto) 0.1 10^3/uL (0-0.2) 09/29/23 05:09
CBC Comment 09/27/23 03:44
Total Counted 100 09/16/23 03:56
Immature Gran % 4.6 % (0-0.5) H 09/29/23 05:09
Neutrophils % 76.3 % (42.2-75.2) H 09/29/23 05:09
Lymphocytes % 11.0 % (20.5-51.1) L 09/29/23 05:09
Monocytes % 7.6 % (1.7-9.3) 09/29/23 05:09
Eosinophils % 0.0 % (0-6) 09/29/23 05:09
Basophils % 0.5 % (0-2) 09/29/23 05:09
Nucleated RBC % 0.8 % (-) 09/29/23 05:09
Abs Neuts (Manual) 18.3 10^3/uL (1.4-6.5) H 09/16/23 03:56
Segmented Neutrophils 69 % (42-75) 09/16/23 03:56
Band Neutrophils 14 % (0-3) H D 09/16/23 03:56
Lymphocytes (Manual) 10 % (20-51) L 09/16/23 03:56
Monocytes (Manual) 3 % (2-9) 09/16/23 03:56
Eosinophils (Manual) 1 % (0-6) 09/16/23 03:56
Metamyelocytes 3 % (-) 09/16/23 03:56
Myelocytes 6 % (-) 09/15/23 03:48
Normal RBC Morphology Yes 09/16/23 03:56
Polychromasia Slight 09/15/23 03:48
Hypochromasia Slight 09/15/23 03:48
Anisocytosis Slight 09/15/23 03:48
Tear Drop Cells 1+ 09/15/23 03:48
[place] Cells 1+ 09/15/23 03:48
Retic Count 2.7 % (0.4-2.8) 09/28/23 03:33
Haptoglobin 97 mg/dL (30-200) 09/24/23 03:09
PT 17.8 Sec (11.4-14.6) H 09/13/23 03:17
INR 1.49 09/13/23 03:17
APTT Cancelled 10/02/23 12:30
pH 7.48 (7.35-7.45) H 09/27/23 11:51
pCO2 43 mmHg (35-48) 09/27/23 11:51
pO2 87 mmHg (83-108) 09/27/23 11:51
HCO3 32.0 mmol/L (21-28) H 09/27/23 11:51
Base Excess 7.8 mmol/L 09/27/23 11:51
ABG O2 Sat (Measured) 99.1 % (94-98) H 09/27/23 11:51
O2 Delivery Level 09/27/23 11:51
Sodium 127 mmol/L (135-145) L 10/06/23 07:19
Potassium 4.4 mmol/L (3.5-5.1) 10/06/23 07:19
Chloride 100 mmol/L (98-107) 10/06/23 07:19
Carbon Dioxide 25 mmol/L (22-30) 10/06/23 07:19
BUN 10 mg/dl (9-20) 10/06/23 07:19
Creatinine 0.6 mg/dL (0.7-1.3) L 04/08/24 07:19
Estimated Creat Clear 121 ml/min 10/06/23 07:19
eGFR > 60.00 10/06/23 07:19
Glucose 111 mg/dl (70-99) H 10/06/23 07:19
Hemoglobin A1c 5.8 % (4.0-5.6) H 09/13/23 03:17
Lactic Acid 1.5 mmol/L (0.7-2.0) 09/21/23 17:38
Uric Acid 1.9 mg/dl (3.5-8.5) L 09/22/23 15:57
Calcium 8.1 mg/dl (8.4-10.2) L 10/06/23 07:19
Ionized Calcium Cancelled 09/24/23 06:00
Phosphorus 4.5 mg/dl (2.5-4.5) 09/29/23 05:09
Magnesium 2.7 mg/dl (1.6-2.3) H 09/29/23 05:09
Total Bilirubin 1.1 mg/dl (0.2-1.3) 10/03/23 09:21
Direct Bilirubin 1.0 mg/dl (0.0-0.4) H 09/23/23 04:46
AST 46 U/L (17-59) 10/03/23 09:21
ALT 71 U/L (0-50) H 10/03/23 09:21
Alkaline Phosphatase 176 U/L (38-126) H 10/03/23 09:21
Lactate Dehydrogenase 340 U/L (120-246) H 09/24/23 03:09
Dyh-M-Hkvajgoskrv Pept 1080 pg/ml 09/20/23 10:03
Total Protein 4.9 g/dl (6.3-8.2) L 10/03/23 09:21
Albumin 2.3 g/dl (3.5-5.0) L 10/03/23 09:21
Triglycerides 125 mg/dl (10-149) 09/22/23 03:38
Total Cholesterol 152 mg/dl (50-199) 09/13/23 03:17
LDL Cholesterol, Calc 96 mg/dl 09/13/23 03:17
VLDL Cholesterol, Calc 13 mg/dl (0-30) 09/13/23 03:17
HDL Cholesterol 43 mg/dl 09/13/23 03:17
Lipase 700 U/L (23-300) H 10/03/23 09:21
Procalcitonin 1.48 ng/ml (0.0-0.25) H 09/25/23 05:02
Urine Color Yellow 09/22/23 15:57
Urine Clarity Clear (Clear) 09/22/23 15:57
Urine pH 5.0 (5.0-9.0) 09/22/23 15:57
Ur Specific [place] 1.015 (<1.030) 09/22/23 15:57
Urine Ketones Trace (Negative) A 09/22/23 15:57
Urine Occult Blood Negative (Negative) 09/22/23 15:57
Urine Nitrite Negative (Negative) 09/22/23 15:57
Urine Bilirubin 1+ (Negative) A 09/22/23 15:57
Urine Urobilinogen Negative (Neg - 1+) 09/22/23 15:57
Ur Leukocyte Esterase Negative (Negative) 09/22/23 15:57
Urine Osmolality 444 mOsm/kg (300-900) 10/05/23 14:07
Urine Creatinine 77.500 mg/dl 09/22/23 15:57
Urine Sodium 120 mmol/L (30-90) H 10/05/23 14:07
Urine Glucose Negative (Negative) 09/22/23 15:57
Urine Albumin Negative (Neg - Trace) 09/22/23 15:57
Vancomycin Peak 25.9 ug/ml (18-26) 09/21/23 20:48
Vancomycin Trough 14.7 ug/ml (5-20) 09/22/23 03:38
Beta-2-GPI IgG Ab <10 SGU (<=20) 09/16/23 14:52
Beta-2-GPI IgA Ab 10 SABINE (<=20) 09/16/23 14:52
Beta-2-GPI IgM Ab <10 SMU (<=20) 09/16/23 14:52
Phosphatidylserine IgG 1 GPS (0-15) 09/16/23 14:52
Phosphatidylserine IgA 0 APS (0-19) 09/16/23 14:52
Phosphatidylserine IgM 0 MPS (0-21) 09/16/23 14:52
Anti-Cardiolipin IgG Ab <10 GPL (<=14) 09/16/23 14:52
Anti-Cardiolipin IgA Ab <10 APL (<=11) 09/16/23 14:52
Anti-Cardiolipin IgM Ab <10 MPL (<=12) 09/16/23 14:52
SARS-CoV-2 Antigen Negative (Negative) 09/12/23 18:05
POC Glucose 132 mg/dl (70-99) H 10/04/23 11:25
Blood Type AB POS 09/28/23 04:42
Antibody Screen Negative (Negative) 09/28/23 04:42
Crossmatch IS Only See Detail 09/28/23 04:42
�
Diagnostic Results: as per HPI
Assessment 58-year-old man with PMH of (peripheral vascular disease, smoker, COPD, prior coronary artery disease prior history of mesenteric bypass in 2020) presented to ED with complaint of subacute abdominal pain. He is s/P thrombectomy, patch
angioplasty, subtotal colectomy with ileostomy creation.
Plan
PT/OT to increase independence with ADLs, improve balance, coordination, endurance, strength, mobility, community reintegration, decreased burden of care on others and family education.
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
Status post thrombectomy, patch angioplasty, subtotal colectomy with ileostomy creation. Cont Meropenem 500mg IV q 6 hours. Monitor. Pain control.
HTN: Diltiazem 120mg qd, hydralazine 10 mg IV every 6 as needed
Coronary artery disease : Aspirin, statin, beta-kirt
Anemia: Multifactorial. Status post surgery- Hgb 9.7
Hyponatremia: 127-due to SIADH (acute on chronic - baseline Na approx 131-134). [facility], possible daily Lasix. Follow BMP.
Leukocytosis:17.1
COPD/emphysema: Off of taper steroids.
Occlusive thrombus left arm - throughout the cephalic vein in the forearm, antecubital fossa, and distal aspect of the upper arm. Eliquis 5mg bid
Psych: Psychology consult.� Monitor mood, adjust medications as needed.
Insomnia: Ambien 5mg qd
Skin: monitor for pressure sores/rashes/lesions.
Pain: acetaminophen, morphine sulfate 2 mg IV every 4 as needed, oxycodone 5mg as needed. Pain must be stable on PO pain meds prior to transfer.
FEN: Low residual diet
Bowel: colostomy
Bladder: Time void, PVRs, PRN straight cath.
Tobacco Abuse: Smoking cessation counseling. Need to find out why smoking whether it is nicotine withdrawal, habit, or oral fixation.
GI Prophylaxis: Pantoprazole
DVT Prophylaxis: Eliquis 5mg bid
Pulmonary: Incentive spirometry
Safety: Continue to reinforce assistance with all transfers.
Code Status:� Full code
Dispo (date/plan/equipment needs): Home with family care.� Social history reviewed.
Functional and Medical Goals: Modified Independent with ADL�s, ambulation, transfers
Summary of recommendations:
- Discharge Destination: Patient would benefit from acute inpatient rehabilitation post thrombectomy, patch angioplasty, subtotal colectomy with ileostomy creation and now with fatigue, deconditioning with functional level of Ambulating 10 feet, 24
feet x 1 with rolling walker assist. Walks with a slow gait, narrow base of support, cues to keep feet within rolling walker. Bed mobility and transfer �min assist
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
Status post thrombectomy, patch angioplasty, subtotal colectomy with ileostomy creation. Cont Meropenem 500mg IV q 6 hours. Monitor. Pain control.
HTN: Diltiazem 120mg qd, hydralazine 10 mg IV every 6 as needed. Must be on PO medications and blood pressure must be less than 180 systolic and 100 diastolic for 24 hours before being stable for transfer to acute rehab.
Anemia: Multifactorial. Status post surgery- Hgb 9.7
Hyponatremia: 127-due to SIADH (acute on chronic - baseline Na approx 131-134). [facility], may potentially need daily Lasix 20mg . Follow BMP. Fluid restriction. Monitor
Bladder: Time void, PVRs, PRN straight cath.
Tobacco Abuse: Smoking cessation counseling. Need to find out why smoking whether it is nicotine withdrawal, habit, or oral fixation.
GI Prophylaxis: Pantoprazole
DVT Prophylaxis: Eliquis 5mg bid
Pulmonary: Incentive spirometry
Pain: acetaminophen, morphine sulfate 2 mg IV every 4 as needed, oxycodone 5mg as needed. Pain must be stable on PO pain meds for at least 24 hours prior to transfer.
FEN: Low residual diet
Attending statement:
I saw and examined the patient today. Reviewed care plan with patient, therapy, nursing, and physician assistant press operator. I agree with the above subjective, physical exam, and plan as documented above. Has temp of 100.4. Notes plan to move his CHAY drain.
Feels overall exhausted and has significant atrophy since being in the hospital. Will benefit from acute inpatient rehabilitation once he is medically stable. Has persistent leukocytosis and hyponatremia.
Temp Pulse Resp BP Pulse Ox
100.4 F H 96 16 128/81 96
10/07/23 07:20 10/07/23 08:45 10/07/23 07:20 10/07/23 08:45 10/07/23 07:20
Height 5 ft 11 in
Actual Weight 63.049 kg
Body Mass Index (BMI) 19.4
Laboratory Data
10/07/23 04:25
10/07/23 04:25
PT 17.8 Sec (11.4-14.6) H 09/13/23 03:17
INR 1.49 09/13/23 03:17
APTT Cancelled 10/02/23 12:30
Total Bilirubin 1.1 mg/dl (0.2-1.3) 10/03/23 09:21
Direct Bilirubin 1.0 mg/dl (0.0-0.4) H 09/23/23 04:46
AST 46 U/L (17-59) 10/03/23 09:21
ALT 71 U/L (0-50) H 10/03/23 09:21
Alkaline Phosphatase 176 U/L (38-126) H 10/03/23 09:21
Total Protein 4.9 g/dl (6.3-8.2) L 10/03/23 09:21
Albumin 2.3 g/dl (3.5-5.0) L 10/03/23 09:21
[2023-10-06 15:51] VITALS: BP 160/86
[2023-10-06] MEDS: AMBIEN 5 MG PO (21:26)
[2023-10-06 23:13] VITALS: BP 129/82
[2023-10-06] MEDS: MORPHINE SULFATE 2 MG IV (23:58)
[2023-10-07] MEDS: MERREM 500 MG IV ×4 (03:47→21:14)
[2023-10-07] MEDS: STERILE WATER FOR INJECTION 10 ML IV ×4 (03:47→21:14)
[2023-10-07 05:24] LABS: Hemoglobin 10.3 g/dL (13.0-18.0); Mean Corp Hgb Conc. 33.2 g/dL (33.0-37.0); Mean Corpuscular Hgb 30.7 pg (27.0-31.0); Mean Corpuscular Volume 92.3 fL (80.0-94.0); Mean Platelet Volume 11.6 fL (7.4-10.4); Platelet Count 402 10^3/uL (130-400); Red Blood Cell Count 3.36 10^6/uL (4.70-6.10); Red Cell Dist. Width 17.8 % (11.5-14.5); White Blood Cell Count 16.9 10^3/uL (4.8-10.8)
[2023-10-07 06:00] VITALS: BMI 19.4
[2023-10-07 06:04] LABS: Blood Urea Nitrogen 8 mg/dl (9-20); Calcium 8.4 mg/dl (8.4-10.2); Carbon Dioxide 26 mmol/L (22-30); Chloride 100 mmol/L (98-107); Estimated Creatinine Clearance 121 ml/min; Glucose 116 mg/dl (70-99); Potassium 4.3 mmol/L (3.5-5.1); Sodium 129 mmol/L (135-145); eGFR > 60.00
[2023-10-07 07:20] VITALS: BP 128/81
[2023-10-07 08:27] LABS: Amylase 252 U/L (30-110)
[2023-10-07] MEDS: PROTONIX 40 MG PO (08:44)
[2023-10-07] MEDS: ASPIR LOW (ENTERIC COATED) 81 MG PO (08:44)
[2023-10-07] MEDS: ELIQUIS 5 MG PO (08:44)
[2023-10-07] MEDS: IMODIUM 2 MG PO ×2 (08:45→21:15)
[2023-10-07] MEDS: CARDIZEM CD 120 MG PO (08:45)
[2023-10-07 09:42] VITALS: BP 126/79; PULSE 94
--- NOTE | 2023-10-07 09:54 | WOUNDNOTE ---
[facility] RN NOTE: Visited patient to follow up on ostomy care. Per patient, pouch was changed yesterday. Ostomy appliance intact, no leaking noted. Patient requests ostomy teaching tomorrow afternoon when is available. This engineering writer reviewed burping
and emptying of pouch. RNNayeli stated she has also reviewed burping of pouch with patient. Will continue ostomy teaching and follow as needed.
--- NOTE | 2023-10-07 10:41 | W.PN.ID1 ---
Date of Service
Date of Service: October 07, 2023
Today's Communication
- clarifying if patient had a splenectomy - I do not see that listed within the specimens from the OR
- Continue meropenem and micafungin
Assessment / Plan
Sujatha peritonitis,
Leukocytosis
- Improving
Total SMA graft occlusion
- s/p thrombectomy (performed through prior graft) & patch repair
Acute mesenteric ischemia - resolved
Transaminitis - resolving
Hx medication noncompliance
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
Recommendations:
- clarifying if patient had a splenectomy - I do not see that listed within the specimens from the OR
- CT scan - large collection with drain in place; 9 cm thin walled subhepatic collection - unlikely to be infected
- Leukocytosis improved off steroid
- Continue meropenem and micafungin
- follow clinically
Note and share Dr Chavez's concern that thrombectomy needed to be performed through prior graft, potentially exposing graft material to peritoneal contents; will plan for chronic suppression if feasible
����������������������������������������������������������
Chief Complaint
-: Leukocytosis and Other (secondary peritonitis)
Subjective / Review of Systems
Tmax 100.4 today
bp stable
persistent leukocytosis
developing thrombocytosis
cr stable
ongoing high output from the drain
CT a/p reviewed
Vital Signs / Physical Exam
Vital Signs
Vital Signs
Temp Pulse Resp BP Pulse Ox
100.4 F H 96 16 128/81 96
10/07/23 07:20 10/07/23 08:45 10/07/23 07:20 10/07/23 08:45 10/07/23 07:20
Physical Exam
Constitutional: No Acute Distress and Chronically Ill
Cardiovascular: Regular Rate and S1/S2; Negative Murmur or Rub
Pulmonary: Clear and Symmetric; Negative Wheezes or Rales
Gastrointestinal: Soft, Non Tender, Non Distended and Normal Bowel Sounds
Skin: Warm and Dry; Negative Rash or Jaundice
Objective Data
Lab Data
Lab Results
10/07/23 04:25
10/07/23 04:25
PT 17.8 Sec (11.4-14.6) H 09/13/23 03:17
INR 1.49 09/13/23 03:17
APTT Cancelled 10/02/23 12:30
Estimated Creat Clear 121 ml/min 10/07/23 04:25
Lactic Acid 1.5 mmol/L (0.7-2.0) 09/21/23 17:38
Total Bilirubin 1.1 mg/dl (0.2-1.3) 10/03/23 09:21
AST 46 U/L (17-59) 10/03/23 09:21
ALT 71 U/L (0-50) H 10/03/23 09:21
Alkaline Phosphatase 176 U/L (38-126) H 10/03/23 09:21
Amylase 252 U/L (30-110) H 10/07/23 04:25
Most recent labs reviewed.
Micro Results:
09/23/23 16:45 Body Fluid Culture - Final
Fluid Sujatha albicans
Gram Stain - Final
09/23/23 16:45 Anaerobic Culture - Final
Abdomen NO ANAEROBES ISOLATED
09/21/23 15:00 Wound Culture - Final
Abdomen Sujatha albicans
Gram Stain - Final
09/21/23 15:00 Anaerobic Culture - Final
Peritoneal Fluid NO ANAEROBES ISOLATED
09/20/23 10:03 Blood Culture - Final
Blood/Venous No Growth - Final Report
09/20/23 10:11 Blood Culture - Final
Blood/Venous No Growth - Final Report
09/12/23 18:05 Blood Culture - Final
Blood/Venous No Growth - Final Report
09/12/23 18:05 Influenza Types A & B (ALAN) - Final
Nasal Swab Negative for Influenza A & B, NAAT
Negative results must be combined with clinical observations
and patient history.
Nucleic Acid Amplification test (NAAT)performed on the
[employer] platform.
Imaging:
09/26/2023 CXR (portable): Persistent bibasilar atelectasis and pleural fluid. Little change from previous exams.
Care Review
Plan reviewed with: Physician (Dr Jose - CT report with splenectomy)
--- NOTE | 2023-10-07 11:43 | W.PN.CRS1 ---
Today's Communication / Plan
-
IR drain placement tomorrow
N.p.o. at midnight
Holding Eliquis, discussed with vascular
CHAY and serum amylase sent
Assessment/Plan
-
Assessment: 58-year-old male with complex hospitalization initially presenting with SMA thrombus/occlusion
POD #24 ex lap, SMA graft thrombectomy, patch angioplasty
POD #16 ex lap subtotal colectomy
POD #14 planned relook laparotomy, creation end ileostomy
Afebrile vital signs stable
WBC is 16.9
CHAY with feculent like outputs but abdominal exam stable and ostomy functioning
Plan:
1. Continue low residue diet
2. Antibiotics per ID
3. CT abdomen and pelvis performed yesterday shows a 7 cm in oblique diameter multilocular cystic density fluid collection at the root of mesentery extending into the left upper quadrant and left paracolic gutter which contains a few internal
bubbles of gas. There is also a separate contiguous 9 cm thin-walled subhepatic fluid collection extending to the right paracolic gutter. Given these findings, I have contacted IR to place a drain in the larger fluid collection. He is on Eliquis.
I will hold this today. I spoke with vascular and they are okay with holding it for a few days the infection needs to be controlled. We we will continue aspirin. IR will place a drain tomorrow given that he was on Eliquis today. N.p.o. at
midnight.
4. Serum amylase and CHAY drain amylase sent.
Subjective Data
Procedure
09/21/2023- Exploratory laparotomy, subtotal colectomy (takedown of splenic flexure)
09/23/2023- 2nd look laparotomy and ileostomy (reopening of recent laparotomy)
Subjective Data
Date of Service: October 07, 2023
Patient states he feels all right. He denies nausea or vomiting. His pain is controlled. His only main complaint is that he has body pain all over mostly due to him having a bad back and being in bed.
Objective Data
-
Vital Signs
Temp Pulse Resp BP Pulse Ox
100.4 F H 96 16 128/81 96
10/07/23 07:20 10/07/23 08:45 10/07/23 07:20 10/07/23 08:45 10/07/23 07:20
Intake & Output
10/06/23 10/07/23 10/08/23
06:59 06:59 06:59
Intake Total 1060 / 1060 965 / 965
Output Total 1880 / 1880 5980 / 5980
Balance -820 / -820 -5015 / -5015
Intake:
Oral fluids 960 / 960 965 / 965
IV fluids (Total) 100 / 100
Output:
Liquid stool amount 950 / 950 2650 / 2650
Ileostomy 950 / 950 2650 / 2650
Drain Output (Total) 130 / 130 505 / 505
Left Filiberto-Roche B 130 / 130 505 / 505
Urine, Voided 800 / 800 2825 / 2825
Lab Results
10/07/23 04:25
10/07/23 04:25
Physical Exam
-
General: No Acute Distress and AOx3
Abdomen: Soft, Non Distended, Non Tender and Other (Left CHAY drain with feculent output)
Skin: Warm and Dry
Incision: Clear, Dry, Intact
[2023-10-07] MEDS: MYCAMINE 105 MG IV (11:44)
--- NOTE | 2023-10-07 11:56 | W.PN.HOSP.TC ---
Today's Communication/Plan
-
For abdominal drain placement in am
CW ABX
Assessment / Plan
Assessment / Plan
Assessment:
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
- s/p Exploratory laparotomy, lysis of adhesions, aorto-mesenteric bypass Tona thrombectomy, mesenteric arteriogram, patch angioplasty of aorto-mesenteric bypass 09/12
- CT-A 09/13 showing patient bypass, concern for bowel ischemia (see below)
Ischemic bowel c/b necrotic bowel
- s/p ex-lap 09/20: Necrotic and perforated entire transverse colon, ischemic right colon and terminal ileum, ischemic left colon, ? ischemia of the proximal jejunum. 70 cm terminal colon with entire right colon, transverse colon and descending colon
removed.
- s/p 2nd look ex-lap 09/22 with Murky fluid throughout the abdomen, viable remaining small intestine with excellent Doppler signals, Haily ileostomy
- Transitioned to oral Eliquis 10/01 - Eliquis on hold for drain placement in am
- ID following for suspected secondary peritonitis. Continue Micafungin; Meropenem changed to Augmentin
- Hematology input about hypercoagulable assessments noted -continue with anticoagulant and follow with office for work up.
Recurrent abdo pain -Improved. Abdomen soft and no rebound . No N/V .Follow for now .cw PPI . CRS following. CT A/P 10/05 showed collection - CRS recfommeding IR placement of drain. CW ABX.
Persistent neutrophilia-no changes to leukocytosis despite improving clinical improvement. I doubt still reactive to intra-abdominal infection. Patient on meropenem and micafungin. Currently on tapering steroids. Continue to follow and if
persistent despite coming off steroids look for myeloproliferative issues.Improving .
Ventilator dependent respiratory failure/acute hypoxic respiratory failure
- extubated 09/26
- Oxygenating well on nasal cannula
Post-op shock - multifactorial from sepsis/blood loss
- pressors weaned 09/26;Hemodynamics stable
- Echo normal EF
Delirium -post op -suspected TME. Off precedex.resolved
GI bleed related to ischemic colitis
Acute blood loss anemia
- monitor Hb -stable
- 1 unit given 09/27
- continue PPI
Hyponatremia due to SIADH (acute on chronic - baseline Na approx 131-134) - SIADH is likely due to recent surgery, also component of volume overload
- Echo normal
- Wt lower than baseline
- Changed Lasix to prn wt gain;On FR
- Recurrent hyponatremia .
- s/p Samsca - improving
- Nephro following
HTN - elevated BP noted .pt not a known HTN - Cardizem initiated .Uptitrate as needed. Blood pressure mostly under goal.
Moderate COPD/emphysema - Off of steroids taper for flare.
CAD s/p prior hx of NSTEMI - asymptomatic without chest pain. On aspirin at home.
Hyperbilirubinemia- mostly indirect elevation, possible Gilbert's + hematomas related. Continue to follow.
Abnormal LFTs - improving after TPN stopped
Hx of DVT status post apixaban 03/2021 post left knee surgery
Chronic back pain - recent steroid taper. Continued mid back pain which is a equally troubling. No sciatica . plain xrays show loss of height of superior endplate t12,l4 . Pt had pull while lifting something at home but no fall or trauma. continue
symptomatic tx
Hyperglycemia
No hx of DM
- HbA1C 5.8
- was on high doses of insulin due to combination of steroid use and TPN.
- Now off of KATERINE insulin SSI as pt off of TPN
Tobacco abuse - remains actively smoking. Cessation recommended.
Nutrition - on TPN and liquid diet
Occlusive thrombus left arm - throughout the cephalic vein in the forearm, antecubital fossa, and distal aspect of the upper arm
- continue anticoagulation
DVT ppx: IV Heparin
Code: Full
CW PT tx
Anticipated Discharge: > 48 hours
Subjective/Interval History
-
Date of Service: October 07, 2023
Feels very deconditioned.
No fever or chills.
Denies shortness of breath or chest pain.
Abdominal pain is okay. Tolerating diet.
Objective Data
-
Labs:
Laboratory Results
10/07/23
04:25
WBC 16.9 H
Hgb 10.3 L
Hct 31.0 L
Plt Count 402 H
Sodium 129 L
Potassium 4.3
Chloride 100
Carbon Dioxide 26
BUN 8 L
Creatinine 0.6 L
Glucose 116 H
Calcium 8.4
Vital Signs:
Vital Signs
Temp Pulse Resp BP Pulse Ox
100.4 F H 96 16 128/81 96
10/07/23 07:20 10/07/23 08:45 10/07/23 07:20 10/07/23 08:45 10/07/23 07:20
I&O
10/06/23 10/07/23 10/08/23
06:59 06:59 06:59
Intake Total 1060 / 1060 965 / 965
Output Total 1880 / 1880 5980 / 5980
Balance -820 / -820 -5015 / -5015
Review of Systems
-
EENT: Denies Sore Throat
Respiratory: Denies Cough
Neuro: Denies Dizzy
Physical Exam
-
General: No Apparent Distress
HEENT: Moist Mucous Membranes
Respiratory: Clear to Auscultation
Cardiac: Regular Rhythm and S1/S2
GI: Soft, Nondistended, Normal Bowel Sounds and Ostomy
Neuro: AO x 3
Data Reviewed
-
CT Scan: Report Reviewed by me (ct abdomen noted)
Labs: Labs Reviewed by me
[2023-10-07 12:29] LABS: Body Fluid Amylase > 10000 U/L
--- NOTE | 2023-10-07 14:01 | W.PN.NEPH.PH ---
Today's Communication / Plan
-
- samsca
Assessment/Plan
-
Assessment:
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
s/p Exploratory laparotomy, lysis of adhesions, aorto-mesenteric bypass Tona thrombectomy, mesenteric arteriogram, patch angioplasty of aorto-mesenteric bypass 09/12
Ischemic bowel c/b necrotic bowel
- s/p ex-lap 09/20: Necrotic and perforated entire transverse colon, ischemic right colon and terminal ileum, ischemic left colon, ? ischemia of the proximal jejunum. 70 cm terminal colon with entire right colon, transverse colon and descending colon
removed.
- s/p 2nd look ex-lap 09/22 with Murky fluid throughout the abdomen, viable remaining small intestine with excellent Doppler signals, Haily ileostomy
GI bleed related to ischemic colitis
Hyponatremia due to SIADH (acute on chronic - baseline Na approx 131-134)
HTN
Moderate COPD/emphysema - Off of steroids taper for flare.
CAD s/p prior hx of NSTEMI - asymptomatic without chest pain. On aspirin at home.
Occlusive thrombus left arm - throughout the cephalic vein in the forearm, antecubital fossa, and distal aspect of the upper arm
Plan
-samsca today, give another dose today
-if Na back to baseline of 131, can likely restart lasix
-follow BMP
-
-
Date of Service: October 07, 2023
CC / HPI / ROS
-
Chief Complaint:
hyponatremia
History of Present Illness:
Na from 126 to 129
acute mesenteric ischemia c/b ischemic bowel and necrosis
abd pain improved
Review of Systems:
feels better today
Labs
-
Labs:
WBC 16.9 10^3/uL (4.8-10.8) H 10/07/23 04:25
RBC 3.36 10^6/uL (4.70-6.10) L 10/07/23 04:25
Hgb 10.3 g/dL (13.0-18.0) L 10/07/23 04:25
Hct 31.0 % (39.0-52.0) L 10/07/23 04:25
Plt Count 402 10^3/uL (130-400) H 10/07/23 04:25
Sodium 129 mmol/L (135-145) L 10/07/23 04:25
Potassium 4.3 mmol/L (3.5-5.1) 10/07/23 04:25
Chloride 100 mmol/L (98-107) 10/07/23 04:25
Carbon Dioxide 26 mmol/L (22-30) 10/07/23 04:25
BUN 8 mg/dl (9-20) L 10/07/23 04:25
Creatinine 0.6 mg/dL (0.7-1.3) L 10/07/23 04:25
eGFR > 60.00 10/07/23 04:25
Glucose 116 mg/dl (70-99) H 10/07/23 04:25
Calcium 8.4 mg/dl (8.4-10.2) 10/07/23 04:25
Phosphorus 4.5 mg/dl (2.5-4.5) 09/29/23 05:09
Zud-[id number]-Ttiwqapppwr Pept 1080 pg/ml 09/20/23 10:03
Albumin 2.3 g/dl (3.5-5.0) L 10/03/23 09:21
Physical Exam
-
Vital Signs:
Vital Signs
Temp Pulse Resp BP Pulse Ox
100.4 F H 96 16 128/81 96
10/07/23 07:20 10/07/23 08:45 10/07/23 07:20 10/07/23 08:45 10/07/23 07:20
Cardiovascular:: Regular rate and rhythm
Respiratory:: Bilateral: Coarse
Abdomen:: Soft and Tender
Bowel Sounds:: Normal
Extremity Edema:: +1: Bilateral:
Chavez Catheter: No
--- NOTE | 2023-10-07 14:39 | CM ---
Patient for drain placement tomorrow in IR.
PMR recommending [facility].
PT/OT continue to recommend acute rehab.
Plan: [facility] when medically stable.
[2023-10-07] MEDS: SAMSCA 7.5 MG PO (15:17)
[2023-10-07 15:29] VITALS: BP 132/61
[2023-10-07] MEDS: MORPHINE SULFATE 2 MG IV (21:15)
[2023-10-07] MEDS: AMBIEN 5 MG PO (21:15)
[2023-10-07 23:32] VITALS: BP 137/87
[2023-10-08] VITALS (8 sets, daily range): BP systolic 88–156; BP diastolic 64–89
[2023-10-08] MEDS: STERILE WATER FOR INJECTION 10 ML IV ×4 (03:50→22:57)
[2023-10-08] MEDS: MORPHINE SULFATE 2 MG IV ×2 (03:50→14:25)
[2023-10-08] MEDS: MERREM 500 MG IV ×3 (03:50→22:56)
--- NOTE | 2023-10-08 09:20 | W.PN.CRS1 ---
Today's Communication / Plan
-
IR for drain placement
Add fiber
Increase Imodium
Assessment/Plan
-
Assessment: 58-year-old male with complex hospitalization initially presenting with SMA thrombus/occlusion
POD #25 ex lap, SMA graft thrombectomy, patch angioplasty
POD #17 ex lap subtotal colectomy
POD #15 planned relook laparotomy, creation end ileostomy
Afebrile vital signs stable
CHAY with feculent like outputs but abdominal exam stable and ostomy functioning
Plan:
1. NPO for IR drain. Continue low residue diet after placement.
2. Antibiotics per ID
3. IR drain in fluid collection today.
4. Increase Imodium to QID due to liquid stool output (1500ml). Will also add fiber.
5. Continue drain (still feculent).
Subjective Data
Procedure
09/21/2023- Exploratory laparotomy, subtotal colectomy (takedown of splenic flexure)
09/23/2023- 2nd look laparotomy and ileostomy (reopening of recent laparotomy)
Subjective Data
Date of Service: October 08, 2023
Patient states he has no nausea or vomiting. His main complaint is that he feels 'dry'. His ileostomy is functioning. He denies abdominal pain.
Objective Data
-
Vital Signs
Temp Pulse Resp BP Pulse Ox
97.6 F 96 17 133/88 98
10/08/23 08:00 10/08/23 08:00 10/08/23 08:00 10/08/23 08:00 10/08/23 08:00
Intake & Output
10/07/23 10/08/23 10/09/23
06:59 06:59 06:59
Intake Total 965 / 965 1620 / 1620
Output Total 5980 / 5980 4600 / 4600
Balance -5015 / -5015 -2980 / -2980
Intake:
Oral fluids 965 / 965 1620 / 1620
Output:
Liquid stool amount 2650 / 2650 1500 / 1500
Ileostomy 2650 / 2650 1500 / 1500
Drain Output (Total) 505 / 505 350 / 350
Left Filiberto-Roche B 505 / 505 350 / 350
Urine, Voided 2825 / 2825 2750 / 2750
Lab Results
10/07/23 04:25
10/07/23 04:25
Physical Exam
-
General: No Acute Distress and AOx3
Abdomen: Soft, Non Distended, Tender and Other (ileostomy warm and pink with function. left drain feculent. )
Wound: No Signs of Infection
[2023-10-08] MEDS: CARDIZEM CD PO (11:04)
[2023-10-08] MEDS: ASPIR LOW (ENTERIC COATED) PO (11:04)
[2023-10-08] MEDS: PROTONIX PO (11:05)
--- NOTE | 2023-10-08 13:26 | W.PN.UPDATE ---
Update Note
Progress Note Update
- Successful CT guided drain placement into LUQ collection. Intercostal approach.
- 70 mL brown turbid fluid aspirated, similar in appearance to CHAY output
- Orders placed.
--- NOTE | 2023-10-08 14:11 | W.PN.ID1 ---
Date of Service
Date of Service: October 08, 2023
Today's Communication
culture from new drain
continue current antibiotics
I will arrange post splenic infarction vaccines as an outpatient
Assessment / Plan
Sujatha peritonitis,
Leukocytosis
- Improving
Total SMA graft occlusion
- s/p thrombectomy (performed through prior graft) & patch repair
Acute mesenteric ischemia - resolved
Transaminitis - resolving
Hx medication noncompliance
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
Recommendations:
- multiple radiologists confirm - complete splenic infarction
- patient will need post splenectomy vaccines as an outpatient; will arrange these through my office
- drain replaced into collection
- drain culture today (not sent from IR)
- CBC, cmp, esr, crp in the AM
- note concern for pancreatic leak, would likely benefit from A1c in next few months
- Continue meropenem and micafungin
- follow clinically
plan for chronic suppression if feasible
����������������������������������������������������������
Chief Complaint
-: Leukocytosis and Other (secondary peritonitis)
Subjective / Review of Systems
no further fevers
bp stable
LUQ collection with drain repositioning with 70 ccs of turbid fluid output
having high output from ostomy - colorectal surgery managing
note surgical comment 'CHAY amylase 10,000, suggestive of pancreatic leak'
Vital Signs / Physical Exam
Vital Signs
Vital Signs
Temp Pulse Resp BP Pulse Ox
98.7 F 96 16 128/87 98
10/08/23 12:55 10/08/23 13:35 10/08/23 13:35 10/08/23 13:35 10/08/23 13:15
Physical Exam
Constitutional: No Acute Distress
Cardiovascular: Regular Rate and S1/S2; Negative Murmur or Rub
Pulmonary: Clear and Symmetric; Negative Wheezes or Rales
Gastrointestinal: Soft, Non Tender, Non Distended and Normal Bowel Sounds
Skin: Warm and Dry; Negative Rash or Jaundice
Lines: Other (two drains both with dark brown/bloody output)
Objective Data
Lab Data
Lab Results
10/07/23 04:25
10/07/23 04:25
PT 17.8 Sec (11.4-14.6) H 09/13/23 03:17
INR 1.49 09/13/23 03:17
APTT Cancelled 10/02/23 12:30
Estimated Creat Clear 121 ml/min 10/07/23 04:25
Lactic Acid 1.5 mmol/L (0.7-2.0) 09/21/23 17:38
Total Bilirubin 1.1 mg/dl (0.2-1.3) 10/03/23 09:21
AST 46 U/L (17-59) 10/03/23 09:21
ALT 71 U/L (0-50) H 10/03/23 09:21
Alkaline Phosphatase 176 U/L (38-126) H 10/03/23 09:21
Amylase 252 U/L (30-110) H 10/07/23 04:25
Most recent labs reviewed.
Micro Results:
09/23/23 16:45 Body Fluid Culture - Final
Fluid Sujatha albicans
Gram Stain - Final
09/23/23 16:45 Anaerobic Culture - Final
Abdomen NO ANAEROBES ISOLATED
09/21/23 15:00 Wound Culture - Final
Abdomen Sujatha albicans
Gram Stain - Final
09/21/23 15:00 Anaerobic Culture - Final
Peritoneal Fluid NO ANAEROBES ISOLATED
09/20/23 10:03 Blood Culture - Final
Blood/Venous No Growth - Final Report
09/20/23 10:11 Blood Culture - Final
Blood/Venous No Growth - Final Report
09/12/23 18:05 Blood Culture - Final
Blood/Venous No Growth - Final Report
09/12/23 18:05 Influenza Types A & B (ALAN) - Final
Nasal Swab Negative for Influenza A & B, NAAT
Negative results must be combined with clinical observations
and patient history.
Nucleic Acid Amplification test (NAAT)performed on the
Digigraph.me platform.
Imaging:
09/26/2023 CXR (portable): Persistent bibasilar atelectasis and pleural fluid. Little change from previous exams.
Care Review
Plan reviewed with: Physician (Dr Jennings - splenic infarction)
[2023-10-08] MEDS: IMODIUM 2 MG PO ×3 (14:24→21:32)
[2023-10-08] MEDS: MYCAMINE 105 MG IV (14:24)
[2023-10-08] MEDS: METAMUCIL, KONSYL 1 PACKET PO (14:25)
[2023-10-08] MEDS: IMODIUM PO (15:05)
--- NOTE | 2023-10-08 15:49 | W.PN.HOSP.TC ---
Today's Communication/Plan
-
All discussed with the patient
Discussed with
Assessment / Plan
Assessment / Plan
Physical exam:
General: Awake, alert and oriented x3, not in distress and holds appropriate conversation.
HEENT: No active discharge, ecchymosis or bruising, moist lips, tongue and mucous membrane.
Eyes: No discharge or red conjunctiva, no nystagmus, pupils are reactive and equal
Neck:Supple, no JVD no bruit no goiter.
Respiratory: Normal AP contour and diameter, normal chest wall movement, normal respiratory effort, no respiratory distress,
Lungs: Good air entry bilaterally, no wheezing or rhonchi, no rales or crackles
Heart: S1, S2 regular, normal rate, no added sound.
Gastrointestinal: Midline incision with christin on, colostomy bag on the right side, CHAY drain on the left side, positive bowel sounds, soft, nontender, no guarding or rigidity or organomegaly
Musculoskeletal: , no chest wall abnormality or tenderness. All joints and extremities have good range of motion, no muscle tenderness or any joint swelling or tenderness.
Extremities: No pitting edema, good peripheral pulses, good range of motion
Skin: Warm and dry, no ulceration, normal color.
Neurological: Awake, alert and oriented x3, , speech clear and comprehensive, good muscle tone, normal sensory and motor function
Psychiatric: Normal mood, normal thought and judgment, normal affect,
Assessment:
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
- s/p Exploratory laparotomy, lysis of adhesions, aorto-mesenteric bypass Tona thrombectomy, mesenteric arteriogram, patch angioplasty of aorto-mesenteric bypass 09/12
- CT-A 09/13 showing patient bypass, concern for bowel ischemia (see below)
Ischemic bowel c/b necrotic bowel
- s/p ex-lap 09/20: Necrotic and perforated entire transverse colon, ischemic right colon and terminal ileum, ischemic left colon, ? ischemia of the proximal jejunum. 70 cm terminal colon with entire right colon, transverse colon and descending colon
removed.
- s/p 2nd look ex-lap 09/22 with Murky fluid throughout the abdomen, viable remaining small intestine with excellent Doppler signals, Haily ileostomy
- Transitioned to oral Eliquis 10/01 - Eliquis on hold for drain placement in am
- ID following for suspected secondary peritonitis.
Continue Micafungin; Meropenem per ID
- Hematology input about hypercoagulable assessments noted -continue with anticoagulant and follow with office for work up.
-Plan for the drain exchange today and culture from the drain according to ID
Concern for pancreatic leak and may need A1c and monitor of sugar as an outpatient eventually
Recurrent abdo pain -Improved. Abdomen soft and no rebound . No N/V .Follow for now .cw PPI . CRS following. CT A/P 10/05 showed collection - CRS recfommeding IR placement of drain. CW ABX.
Persistent neutrophilia-no changes to leukocytosis despite improving clinical improvement. I doubt still reactive to intra-abdominal infection. Patient on meropenem and micafungin. Currently on tapering steroids. Continue to follow and if
persistent despite coming off steroids look for myeloproliferative issues.
-Recheck labs in the morning.
Ventilator dependent respiratory failure/acute hypoxic respiratory failure
- extubated 09/26
- Oxygenating well on nasal cannula
Post-op shock - multifactorial from sepsis/blood loss
- pressors weaned 09/26;Hemodynamics stable
- Echo normal EF
Delirium -post op -suspected TME. Off precedex.resolved
GI bleed related to ischemic colitis
Acute blood loss anemia
- monitor Hb -stable
- 1 unit given 09/27
- continue PPI
Hyponatremia due to SIADH (acute on chronic - baseline Na approx 131-134) - SIADH is likely due to recent surgery, also component of volume overload
- Echo normal
- Wt lower than baseline
- Changed Lasix to prn wt gain;On FR
- Recurrent hyponatremia .
- s/p Samsca - improving
- Nephro following
HTN - elevated BP noted .pt not a known HTN - Cardizem initiated .Uptitrate as needed. Blood pressure mostly under goal.
Moderate COPD/emphysema - Off of steroids taper for flare.
CAD s/p prior hx of NSTEMI - asymptomatic without chest pain. On aspirin at home.
Hyperbilirubinemia- mostly indirect elevation, possible Gilbert's + hematomas related. Continue to follow.
Abnormal LFTs - improving after TPN stopped
Hx of DVT status post apixaban 03/2021 post left knee surgery
Chronic back pain - recent steroid taper. Continued mid back pain which is a equally troubling. No sciatica . plain xrays show loss of height of superior endplate t12,l4 . Pt had pull while lifting something at home but no fall or trauma. continue
symptomatic tx
Hyperglycemia
No hx of DM
- HbA1C 5.8, close follow-up as an outpatient
- was on high doses of insulin due to combination of steroid use and TPN.
- Now off of KATERINE insulin SSI as pt off of TPN
Tobacco abuse - remains actively smoking. Cessation recommended.
Nutrition - on TPN and liquid diet
Occlusive thrombus left arm - throughout the cephalic vein in the forearm, antecubital fossa, and distal aspect of the upper arm
- continue anticoagulation
DVT ppx:
Code: Full
CW PT tx
Anticipated Discharge: > 48 hours
Subjective/Interval History
-
Date of Service: October 08, 2023
Seen and examined earlier, he was awake, alert and oriented x 3, he was n.p.o. for abdominal drainage change, he was hungry, otherwise denies abdominal pain or fever or chills or cough or congestion,
One of the drainage collected in the CHAY drain. Afebrile, no nausea vomit
Objective Data
-
Labs:
Laboratory Results
10/08/23
15:46
Sodium Pending
Potassium Pending
Chloride Pending
Carbon Dioxide Pending
BUN Pending
Creatinine Pending
Glucose Pending
Calcium Pending
Vital Signs:
Vital Signs
Temp Pulse Resp BP Pulse Ox
98.7 F 96 16 128/87 98
10/08/23 12:55 10/08/23 13:35 10/08/23 13:35 10/08/23 13:35 10/08/23 13:15
I&O
10/07/23 10/08/23 10/09/23
07:59 07:59 07:59
Intake Total 725 / 725 1620 / 1620
Output Total 4380 / 4380 4600 / 4600
Balance -3655 / -3655 -2980 / -2980
Review of Systems
-
All other systems: Reviewed and negative
--- NOTE | 2023-10-08 16:45 | PN.CDI ---
CDI
- -
CDI:
Physician Documentation Request
Admit Date: 09/12/23 20:39
Dear Doctor Torey,
Please review the following and provide your response in the progress notes.
Clinical Indicators:
Height: 5 ft 11 in
Weight:139 lb
BMI:19.4
Other Clinical Notes: Nutrition note 10/05, ' Pcqiin-geifgork-728 lbs 2 oz (4-8, BMI 20.1-normal range); 166 lbs 3.657 oz (3-15) with variations during hospitalization...'
If possible, please provide an associated diagnosis related to the abnormal BMI, such as:
Weight Loss
Underweight
- Other
Use of terms such as suspected, likely, concern for, or probable (associated with a specific diagnosis that is being evaluated, monitored, or treated as if it exists) are acceptable and can be coded in the inpatient setting, when documented at the
time of discharge.
Thank you,
Lavern Narayan RN
CDI Specialist
[facility]
Please use your independent medical judgment in providing your response.
--- NOTE | 2023-10-08 16:54 | WOUNDNOTE ---
WOC RN note: t/c Spoke with patient re: ostomy teaching tomorrow. He stated his should be available tomorrow. Will call Mirian tomorrow to see if time can be coordinated when she is available.
[2023-10-08 17:39] LABS: Blood Urea Nitrogen 10 mg/dl (9-20); Calcium 8.1 mg/dl (8.4-10.2); Carbon Dioxide 27 mmol/L (22-30); Chloride 94 mmol/L (98-107); Estimated Creatinine Clearance 117 ml/min; Glucose 157 mg/dl (70-99); Potassium 4.4 mmol/L (3.5-5.1); Sodium 124 mmol/L (135-145); eGFR > 60.00
--- NOTE | 2023-10-08 17:52 | W.PN.NEPH.PH ---
Today's Communication / Plan
-
samsca again high dose
Assessment/Plan
-
Assessment:
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
s/p Exploratory laparotomy, lysis of adhesions, aorto-mesenteric bypass Tona thrombectomy, mesenteric arteriogram, patch angioplasty of aorto-mesenteric bypass 09/12
s/p 2nd look ex-lap 09/22 Haily ileostomy
GI bleed related to ischemic colitis
Hyponatremia due to SIADH (acute on chronic - baseline Na approx 131-134)
HTN
Moderate COPD/emphysema
CAD s/p prior hx of NSTEMI
Occlusive thrombus left arm
Plan
hyponatremia from SIADH multifactorial
sodium down despite samsca 10/06, suspect pt drinking more liquids
dos esamsca again and need strict FR 40ounces/day, ice chips if feels dry mouth
encourage solute intake
abx per ID
monitor GI out put
d/w pt in detail
-follow BMP
-
-
Date of Service: October 08, 2023
CC / HPI / ROS
-
Chief Complaint:
hyponatremia
History of Present Illness:
Na from down to 124 from 129 s/p samsca 10/05, 10/06
acute mesenteric ischemia c/b ischemic bowel and necrosis
no fever, BP stable
Review of Systems:
abd discomfort mostly s/p new drain placement
no cp or sob
feels thirsty and drinks liquids, do not think following FR
Labs
-
Labs:
WBC 16.9 10^3/uL (4.8-10.8) H 10/07/23 04:25
RBC 3.36 10^6/uL (4.70-6.10) L 10/07/23 04:25
Hgb 10.3 g/dL (13.0-18.0) L 10/07/23 04:25
Hct 31.0 % (39.0-52.0) L 10/07/23 04:25
Plt Count 402 10^3/uL (130-400) H 10/07/23 04:25
Sodium 124 mmol/L (135-145) L 10/08/23 17:20
Potassium 4.4 mmol/L (3.5-5.1) 10/08/23 17:20
Chloride 94 mmol/L (98-107) L 10/08/23 17:20
Carbon Dioxide 27 mmol/L (22-30) 10/08/23 17:20
BUN 10 mg/dl (9-20) 10/08/23 17:20
Creatinine 0.6 mg/dL (0.7-1.3) L 10/08/23 17:20
eGFR > 60.00 10/08/23 17:20
Glucose 157 mg/dl (70-99) H 10/08/23 17:20
Calcium 8.1 mg/dl (8.4-10.2) L 10/08/23 17:20
Phosphorus 4.5 mg/dl (2.5-4.5) 09/29/23 05:09
Jdy-P-Fcckrvpeqeu Pept 1080 pg/ml 09/20/23 10:03
Albumin 2.3 g/dl (3.5-5.0) L 10/03/23 09:21
Physical Exam
-
Vital Signs:
Vital Signs
Temp Pulse Resp BP Pulse Ox
98.8 F 87 18 156/85 99
10/08/23 15:00 10/08/23 15:00 10/08/23 15:00 10/08/23 15:00 10/08/23 15:00
Cardiovascular:: Regular rate and rhythm
Respiratory:: Bilateral: CTA
Lung Excursion:: Normal
Abdomen:: Nontender and Soft
Extremity Edema:: None: Bilateral:
Chavez Catheter: No
--- NOTE | 2023-10-08 18:25 | W.PN.UPDATE ---
Update Note
Progress Note Update
Cross Coverage Update:
Ordered Cathflo once per vascular team request due to a PICC port not flushing or giving blood return. Noted Eliquis remains on hold last dose 10/06 AM, held for IR tube placement 10/07, discussed with surgery who recommends to continue hold for
now. Primary team to reassess in AM.
[2023-10-08] MEDS: MERREM IV ×2 (18:51→22:45)
[2023-10-08] MEDS: SAMSCA 30 MG PO (18:52)
[2023-10-08] MEDS: FLUSH (NSS) 2 FLUSH IV (18:53)
[2023-10-08] MEDS: CATHFLO/ACTIVASE 2 MG IV (20:06)
[2023-10-08] MEDS: AMBIEN 5 MG PO (21:32)
[2023-10-08] MEDS: ROXICODONE 5 MG PO (21:37)
--- NOTE | 2023-10-08 22:26 | VATNOTE ---
Rt. Picc with occluded white lumen, only 1cc of cath tee instilled at 20:03, no blood return, unable to flush. Purple lumen not flushing, staff technologist aware to get cath tee. Pt. may be discharged in the next 2 days. Peripheral access obtained, rt. arm,
due to limb restriction on left with thrombus. VAT to follow.
[2023-10-09] MEDS: MORPHINE SULFATE 2 MG IV ×2 (02:41→21:15)
[2023-10-09] MEDS: STERILE WATER FOR INJECTION 10 ML IV ×4 (04:08→21:13)
[2023-10-09] MEDS: MERREM 500 MG IV ×4 (04:08→21:13)
[2023-10-09 05:10] VITALS: BMI 18.7
[2023-10-09 05:32] LABS: % Basophils 0.4 % (0-2); % Eosinophils 1.2 % (0-6); % Immature Granulocytes 0.7 % (0-0.5); % Lymphocytes 9.3 % (20.5-51.1); % Monocytes 9.6 % (1.7-9.3); % Neutrophils 78.8 % (42.2-75.2); Absolute Basophils 0.1 10^3/uL (0-0.2); Absolute Eosinophils 0.2 10^3/uL (0-0.7); Absolute Immature Granulocytes 0.1 10^3/uL (0-0.05); Absolute Lymphocytes 1.3 10^3/uL (1.2-3.4); Absolute Monocytes 1.4 10^3/uL (0.1-0.6); Absolute Neutrophils 11.2 10^3/uL (1.4-6.5); Hematocrit 32.4 % (39.0-52.0); Mean Corpuscular Hgb 30.7 pg (27.0-31.0); Mean Corpuscular Volume 90.5 fL (80.0-94.0); Mean Platelet Volume 10.5 fL (7.4-10.4); Nucleated Red Blood Cells % 0 % (-); Platelet Count 371 10^3/uL (130-400); Red Blood Cell Count 3.58 10^6/uL (4.70-6.10); Red Cell Dist. Width 17.2 % (11.5-14.5); White Blood Cell Count 14.2 10^3/uL (4.8-10.8)
[2023-10-09 05:37] LABS: ALT (SGPT) 48 U/L (0-50); AST (SGOT) 40 U/L (17-59); Albumin 2.9 g/dl (3.5-5.0); Alkaline Phosphatase 177 U/L (38-126); Blood Urea Nitrogen 9 mg/dl (9-20); Calcium 8.9 mg/dl (8.4-10.2); Carbon Dioxide 30 mmol/L (22-30); Chloride 96 mmol/L (98-107); Estimated Creatinine Clearance 113 ml/min; Glucose 145 mg/dl (70-99); Magnesium 2.2 mg/dl (1.6-2.3); Potassium 4.6 mmol/L (3.5-5.1); Sodium 132 mmol/L (135-145); Total Bilirubin 1.2 mg/dl (0.2-1.3); eGFR > 60.00
--- NOTE | 2023-10-09 05:56 | VATNOTE ---
0515
PRIOR TO ADMINISTERING 2ND DOSE OF CATHFLO , BOTH PURPLE AND WHITE LUMENS OF 5FR DL R PICC CHECKED. BOTH LUMENS FLUSH EASILY AND HAVE A BRISK BLOOD RETURN. LABS DRAWN ORDERED. WILL LEAVE INT INTACT AND HAVE VAT DETERMINE THAT PATENCY AND BLOOD
RETURN ARE MAINTAINED TODAY PRIOR TO REMOVAL. PCN AWARE OF INTERVENTION AND OUTCOME AND PLAN OF CARE.
[2023-10-09 06:10] LABS: TSH Reflex To Free T4 5.01 uIU/ml (0.47-4.68)
[2023-10-09 06:38] LABS: Free T4 2.01 ng/dl (0.78-2.19)
[2023-10-09 06:46] LABS: Erythrocyte Sed Rate 38 mm/hour (0-20)
[2023-10-09 07:30] VITALS: BP 125/85
[2023-10-09] MEDS: METAMUCIL, KONSYL 1 PACKET PO (10:03)
[2023-10-09] MEDS: PROTONIX 40 MG PO (10:08)
[2023-10-09] MEDS: ASPIR LOW (ENTERIC COATED) 81 MG PO (10:08)
[2023-10-09] MEDS: CARDIZEM CD 120 MG PO (10:08)
[2023-10-09] MEDS: IMODIUM 2 MG PO ×4 (10:08→21:13)
[2023-10-09] MEDS: FLUSH (NSS) 2 FLUSH IV ×2 (10:09→17:54)
[2023-10-09 11:00] VITALS: BP 138/90; PULSE 85
--- NOTE | 2023-10-09 12:39 | W.PN.HOSP.TC ---
Addendum entered and electronically signed by Travis Lema MD 10/09/23 15:22:
Patient for weight loss but BMI still in the normal range, so he is still not in the weight his BMI is 19.4
Original Note:
Today's Communication/Plan
-
Discussed with the patient and the nurse
Assessment / Plan
Assessment / Plan
Physical exam:
General: Awake, alert and oriented x3, not in distress and holds appropriate conversation.
HEENT: No active discharge, ecchymosis or bruising, moist lips, tongue and mucous membrane.
Eyes: No discharge or red conjunctiva, no nystagmus, pupils are reactive and equal
Neck:Supple, no JVD no bruit no goiter.
Respiratory: Normal AP contour and diameter, normal chest wall movement, normal respiratory effort, no respiratory distress,
Lungs: Good air entry bilaterally, no wheezing or rhonchi, no rales or crackles
Heart: S1, S2 regular, normal rate, no added sound.
Gastrointestinal: Midline incision with christin on, colostomy bag on the right side, 2 CHAY drain on the left side, positive bowel sounds, soft, nontender, no guarding or rigidity or organomegaly
Musculoskeletal: , no chest wall abnormality or tenderness. All joints and extremities have good range of motion, no muscle tenderness or any joint swelling or tenderness.
Extremities: No pitting edema, good peripheral pulses, good range of motion
Skin: Warm and dry, no ulceration, normal color.
Neurological: Awake, alert and oriented x3, , speech clear and comprehensive, good muscle tone, normal sensory and motor function
Assessment:
Hyponatremia:
Improving sodium was 124 yesterday today is 132, avoid overcorrection
Nephrology input appreciated
On 40 ounce fluid restriction patient and happy
On some Semasca
Defer further recommendation to nephrology
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
- s/p Exploratory laparotomy, lysis of adhesions, aorto-mesenteric bypass Tona thrombectomy, mesenteric arteriogram, patch angioplasty of aorto-mesenteric bypass 09/12
- CT-A 09/13 showing patient bypass, concern for bowel ischemia (see below)
-Had a second drain added to his left side of the abdomen,
Ischemic bowel c/b necrotic bowel
- s/p ex-lap 09/20: Necrotic and perforated entire transverse colon, ischemic right colon and terminal ileum, ischemic left colon, ? ischemia of the proximal jejunum. 70 cm terminal colon with entire right colon, transverse colon and descending colon
removed.
- s/p 2nd look ex-lap 09/22 with Murky fluid throughout the abdomen, viable remaining small intestine with excellent Doppler signals, Haily ileostomy
- Transitioned to oral Eliquis 10/01 - Eliquis on hold for drain placement in am
- ID following for suspected secondary peritonitis.
-Continue Micafungin; Meropenem per ID, duration. ID
- Hematology input about hypercoagulable assessments noted -continue with anticoagulant and follow with office for work up.
-Plan for the drain exchange today and culture from the drain according to ID
Concern for pancreatic leak and may need A1c and monitor of sugar as an outpatient eventually
Recurrent abdo pain -Improved. Abdomen soft and no rebound . No N/V .Follow for now .cw PPI . CRS following. CT A/P 10/05 showed collection - CRS recfommeding IR placement of drain. CW ABX.
Persistent neutrophilia-no changes to leukocytosis despite improving clinical improvement. I doubt still reactive to intra-abdominal infection. Patient on meropenem and micafungin. Currently on tapering steroids. Continue to follow and if
persistent despite coming off steroids look for myeloproliferative issues.
-Recheck labs in the morning.
Ventilator dependent respiratory failure/acute hypoxic respiratory failure
- extubated 09/26
- Oxygenating well on nasal cannula
Post-op shock - multifactorial from sepsis/blood loss
- pressors weaned 09/26;Hemodynamics stable
- Echo normal EF
Delirium -post op -suspected TME. Off precedex.resolved
GI bleed related to ischemic colitis
Acute blood loss anemia
- monitor Hb -stable
- 1 unit given 09/27
- continue PPI
HTN - elevated BP noted .pt not a known HTN - Cardizem initiated .Uptitrate as needed. Blood pressure mostly under goal.
Moderate COPD/emphysema - Off of steroids taper for flare.
CAD s/p prior hx of NSTEMI - asymptomatic without chest pain. On aspirin at home.
Hyperbilirubinemia- mostly indirect elevation, possible Gilbert's + hematomas related. Continue to follow.
Abnormal LFTs - improving after TPN stopped
Hx of DVT status post apixaban 03/2021 post left knee surgery
Chronic back pain - recent steroid taper. Continued mid back pain which is a equally troubling. No sciatica . plain xrays show loss of height of superior endplate t12,l4 . Pt had pull while lifting something at home but no fall or trauma. continue
symptomatic tx
Hyperglycemia
No hx of DM
- HbA1C 5.8, close follow-up as an outpatient
- was on high doses of insulin due to combination of steroid use and TPN.
- Now off of KATERINE insulin SSI as pt off of TPN
Tobacco abuse - remains actively smoking. Cessation recommended.
Nutrition - on TPN and liquid diet
Occlusive thrombus left arm - throughout the cephalic vein in the forearm, antecubital fossa, and distal aspect of the upper arm
- continue anticoagulation, on Eliquis
DVT ppx: Eliquis
Code: Full
CW PT tx
Once stable he will be transferred to [facility]
Anticipated Discharge: > 48 hours
Subjective/Interval History
-
Date of Service: October 09, 2023
Seen and examined, awake and alert, nurse at the bedside, he is unhappy with the fluid restriction while sodium levels improved from 1 24-1 32 today, denies any chest pain or shortness of breath or fever or chill, still have abdominal discomfort and
yesterday they placed a second CHAY drain in the left side of the abdomen, having good amount of BM and colostomy bag
Objective Data
-
Labs:
Laboratory Results
10/09/23
04:59
WBC 14.2 H
Hgb 11.0 L
Hct 32.4 L
Plt Count 371
Sodium 132 L D
Potassium 4.6
Chloride 96 L
Carbon Dioxide 30
BUN 9
Creatinine 0.6 L
Glucose 145 H
Calcium 8.9
Total Bilirubin 1.2
AST 40
ALT 48
Alkaline Phosphatase 177 H
Vital Signs:
Vital Signs
Temp Pulse Resp BP Pulse Ox
97.6 F 96 16 125/85 98
10/09/23 07:30 10/09/23 07:30 10/09/23 07:30 10/09/23 07:30 10/09/23 07:30
I&O
10/08/23 10/09/23 10/10/23
07:59 07:59 07:59
Intake Total 1620 / 1620 1685 / 1685
Output Total 4600 / 4600 5075 / 5075
Balance -2980 / -2980 -3390 / -3390
Review of Systems
-
All other systems: Reviewed and negative
--- NOTE | 2023-10-09 12:50 | W.PN.ID1 ---
Date of Service
Date of Service: October 09, 2023
Today's Communication
- Continue meropenem and micafungin pending sensitivities
- check Qtc in the AM
Assessment / Plan
Sujatha peritonitis,
Leukocytosis
- Improving
Total SMA graft occlusion
- s/p thrombectomy (performed through prior graft) & patch repair
Acute mesenteric ischemia - resolved
Transaminitis - resolving
Hx medication noncompliance
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
Recommendations:
- drain replaced into collection
- drain culture: Pseudomonas - will follow for sensitivities
- Continue meropenem and micafungin pending sensitivities
- check Qtc in the AM
- complete splenic infarction
- patient will need post splenectomy vaccines as an outpatient; will arrange these through my office
- follow clinically
plan for chronic suppression if feasible
����������������������������������������������������������
Chief Complaint
-: Leukocytosis and Other (secondary peritonitis)
Subjective / Review of Systems
afebrile
bp stable
declining leukocytosis
resolved thrombocytosis
cr 0.6
wound cx: pseudomonas
tearful and upset - frustrated
Vital Signs / Physical Exam
Vital Signs
Vital Signs
Temp Pulse Resp BP Pulse Ox
97.6 F 96 16 125/85 98
10/09/23 07:30 10/09/23 07:30 10/09/23 07:30 10/09/23 07:30 10/09/23 07:30
Physical Exam
Constitutional: No Acute Distress
Cardiovascular: Regular Rate and S1/S2; Negative Murmur or Rub
Pulmonary: Clear and Symmetric; Negative Wheezes or Rales
Gastrointestinal: Soft, Non Tender, Non Distended and Normal Bowel Sounds
Skin: Warm and Dry; Negative Rash or Jaundice
Objective Data
Lab Data
Lab Results
10/09/23 04:59
10/09/23 04:59
ESR 38 mm/hour (0-20) H 10/09/23 04:59
PT 17.8 Sec (11.4-14.6) H 09/13/23 03:17
INR 1.49 09/13/23 03:17
APTT Cancelled 10/02/23 12:30
Estimated Creat Clear 113 ml/min 10/09/23 04:59
Lactic Acid 1.5 mmol/L (0.7-2.0) 09/21/23 17:38
Total Bilirubin 1.2 mg/dl (0.2-1.3) 10/09/23 04:59
AST 40 U/L (17-59) 10/09/23 04:59
ALT 48 U/L (0-50) 10/09/23 04:59
Alkaline Phosphatase 177 U/L (38-126) H 10/09/23 04:59
C-Reactive Protein 161.70 mg/L (0.0-10.00) H 10/09/23 04:59
Amylase 252 U/L (30-110) H 10/07/23 04:25
Most recent labs reviewed.
Micro Results:
10/08/23 13:12 Wound Culture - Preliminary
Abscess Pseudomonas aeruginosa
Gram Stain - Preliminary
10/08/23 14:48 Wound Culture - Preliminary
Abscess Pseudomonas aeruginosa
Gram Stain - Preliminary
09/23/23 16:45 Body Fluid Culture - Final
Fluid Sujatha albicans
Gram Stain - Final
09/23/23 16:45 Anaerobic Culture - Final
Abdomen NO ANAEROBES ISOLATED
09/21/23 15:00 Wound Culture - Final
Abdomen Sujatha albicans
Gram Stain - Final
09/21/23 15:00 Anaerobic Culture - Final
Peritoneal Fluid NO ANAEROBES ISOLATED
09/20/23 10:03 Blood Culture - Final
Blood/Venous No Growth - Final Report
09/20/23 10:11 Blood Culture - Final
Blood/Venous No Growth - Final Report
09/12/23 18:05 Blood Culture - Final
Blood/Venous No Growth - Final Report
09/12/23 18:05 Influenza Types A & B (ALAN) - Final
Nasal Swab Negative for Influenza A & B, NAAT
Negative results must be combined with clinical observations
and patient history.
Nucleic Acid Amplification test (NAAT)performed on the
[employer] platform.
Imaging:
09/26/2023 CXR (portable): Persistent bibasilar atelectasis and pleural fluid. Little change from previous exams.
Care Review
Plan reviewed with: Physician (Dr Diamond - fluid restriction)
[2023-10-09] MEDS: FLUSH (NSS) 1 FLUSH IV (13:50)
[2023-10-09] MEDS: MYCAMINE 105 MG IV (13:50)
--- NOTE | 2023-10-09 14:30 | CM ---
Patient seen bedside.
Spoke with spouse, she is anxious for patyient to get to [facility].
also willing to learn ostomy care.
CHAY x 2.
Continues on IV anbx, final cx results (P).
Spoke with [facility] liaison, updated.
Plan: [facility] when medically stable. Will need [employer] [facility] auth.
--- NOTE | 2023-10-09 15:05 | WOUNDNOTE ---
[facility] RN NOTE: Patient visited for ostomy teaching. Support person Mirian emptied pouch and cut wafer and assisted with all care. Peristomal skin with small open area. This area was cleaned with saline and stoma powder was blotted with no-sting
barrier. Stoma is pink and slightly budded. [place] [id number] wafer, [place] seal, [place] [id number] pouch applied. Convex barrier number [id number] also left at bedside in the case of leaking or if there is increased breakdown at next pouch change. All
ostomy supplies and teaching materials at bedside. Patient is ready with supplies if discharged to [facility] over the weekend. Will follow as needed. RN Mikala updated.
--- NOTE | 2023-10-09 15:54 | WOUNDNOTE ---
[facility] RN NOTE: Patient and gave permission for [employer] [place] Kit to be ordered and sent to patients apartment. Kit successfully ordered by this chart writer.
[2023-10-09 16:00] VITALS: BP 164/93
--- NOTE | 2023-10-09 18:08 | W.PN.NEPH.PH ---
Today's Communication / Plan
-
liberate FR to 50ounces/day
Assessment/Plan
-
Assessment:
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
s/p Exploratory laparotomy, lysis of adhesions, aorto-mesenteric bypass Tona thrombectomy, mesenteric arteriogram, patch angioplasty of aorto-mesenteric bypass 09/12
s/p 2nd look ex-lap 09/22 Haily ileostomy
GI bleed related to ischemic colitis
Hyponatremia due to SIADH (acute on chronic - baseline Na approx 131-134)
HTN
Moderate COPD/emphysema
CAD s/p prior hx of NSTEMI
Occlusive thrombus left arm
Plan
hyponatremia from SIADH multifactorial
pt has difficulty to follow fluid restriction
which will be challenge to maintain sodium
we reviewed that with out FR he is risk of acute hyponatremia and SZs
sodium better today with samsca 10/07, brisk UOP noted
liberate FR to 50 ounces/day
encourage solute intake
abx per ID
monitor GI out put
d/w pt in detail
-follow BMP
-
-
Date of Service: October 09, 2023
CC / HPI / ROS
-
Chief Complaint:
hyponatremia
History of Present Illness:
Na better to 132 s/p samsca 10/07
acute mesenteric ischemia c/b ischemic bowel and necrosis
no fever, BP stable
Review of Systems:
offers no abd pain durign visit
no cp or sob
feels thirsty and drinks liquids, having hard time to follow FR
Labs
-
Labs:
WBC 14.2 10^3/uL (4.8-10.8) H 10/09/23 04:59
RBC 3.58 10^6/uL (4.70-6.10) L 10/09/23 04:59
Hgb 11.0 g/dL (13.0-18.0) L 10/09/23 04:59
Hct 32.4 % (39.0-52.0) L 10/09/23 04:59
Plt Count 371 10^3/uL (130-400) 10/09/23 04:59
Sodium 132 mmol/L (135-145) L D 10/09/23 04:59
Potassium 4.6 mmol/L (3.5-5.1) 10/09/23 04:59
Chloride 96 mmol/L (98-107) L 10/09/23 04:59
Carbon Dioxide 30 mmol/L (22-30) 10/09/23 04:59
BUN 9 mg/dl (9-20) 10/09/23 04:59
Creatinine 0.6 mg/dL (0.7-1.3) L 10/09/23 04:59
eGFR > 60.00 10/09/23 04:59
Glucose 145 mg/dl (70-99) H 10/09/23 04:59
Calcium 8.9 mg/dl (8.4-10.2) 10/09/23 04:59
Phosphorus 4.5 mg/dl (2.5-4.5) 09/29/23 05:09
Vzy-L-Oplqjvchqxj Pept 1080 pg/ml 09/20/23 10:03
Albumin 2.9 g/dl (3.5-5.0) L 10/09/23 04:59
Physical Exam
-
Vital Signs:
Vital Signs
Temp Pulse Resp BP Pulse Ox
98.5 F 110 16 164/93 98
10/09/23 16:00 10/09/23 16:00 10/09/23 16:00 10/09/23 16:00 10/09/23 16:00
Cardiovascular:: Regular rate and rhythm
Respiratory:: Bilateral: CTA
Lung Excursion:: Normal
Abdomen:: Nontender and Soft
Extremity Edema:: None: Bilateral:
Chavez Catheter: No
[2023-10-09] MEDS: AMBIEN 5 MG PO (20:03)
[2023-10-09 23:00] VITALS: BP 131/87
[2023-10-10] MEDS: ROXICODONE 5 MG PO (00:25)
[2023-10-10] MEDS: MORPHINE SULFATE 2 MG IV ×2 (01:28→22:11)
[2023-10-10] MEDS: STERILE WATER FOR INJECTION 10 ML IV ×4 (04:47→22:04)
[2023-10-10] MEDS: MERREM 500 MG IV ×4 (04:47→22:05)
[2023-10-10 05:53] VITALS: BMI 18.6
[2023-10-10 07:00] VITALS: BP 147/94
[2023-10-10] MEDS: IMODIUM 2 MG PO ×4 (08:06→22:04)
[2023-10-10 08:14] LABS: Blood Urea Nitrogen 9 mg/dl (9-20); Calcium 8.8 mg/dl (8.4-10.2); Carbon Dioxide 30 mmol/L (22-30); Chloride 95 mmol/L (98-107); Estimated Creatinine Clearance 96 ml/min; Glucose 153 mg/dl (70-99); Potassium 4.8 mmol/L (3.5-5.1); Sodium 129 mmol/L (135-145); eGFR > 60.00
[2023-10-10] MEDS: PROTONIX 40 MG PO (08:16)
[2023-10-10] MEDS: METAMUCIL, KONSYL 1 PACKET PO (08:16)
[2023-10-10] MEDS: ASPIR LOW (ENTERIC COATED) 81 MG PO (08:16)
[2023-10-10] MEDS: CARDIZEM CD 120 MG PO (08:16)
--- NOTE | 2023-10-10 10:03 | W.PN.CRS1 ---
Today's Communication / Plan
-
Continue Imodium
Continue fiber
Continue drains
Assessment/Plan
-
Assessment: 58-year-old male with complex hospitalization initially presenting with SMA thrombus/occlusion
POD #26 ex lap, SMA graft thrombectomy, patch angioplasty
POD #18 ex lap subtotal colectomy
POD #16 planned relook laparotomy, creation end ileostomy
Afebrile vital signs stable
CHAY with feculent like outputs but abdominal exam stable and ostomy functioning
Plan:
1. On a regular diet with fiber supplement.
2. Antibiotics per ID
3. Will remove christin in a week or so
4. On Imodium to QID due to liquid stool output (600ml).
5. Continue drains (still feculent).
Subjective Data
Procedure
09/21/2023- Exploratory laparotomy, subtotal colectomy (takedown of splenic flexure)
09/23/2023- 2nd look laparotomy and ileostomy (reopening of recent laparotomy)
Subjective Data
Date of Service: October 10, 2023
Patient states he feels a little bit better every day. His abdomen is much less tender. His liquid stool output is slowing down. He denies nausea or vomiting is tolerating a diet.
Objective Data
-
Vital Signs
Temp Pulse Resp BP Pulse Ox
98.6 F 95 14 147/94 96
10/10/23 07:00 10/10/23 07:00 10/10/23 07:00 10/10/23 07:00 10/10/23 07:00
Intake & Output
10/09/23 10/10/23 10/11/23
06:59 06:59 06:59
Intake Total 1685 / 1685 845 / 845 240 / 240
Output Total 5075 / 5075 2961 / 2961
Balance -3390 / -3390 -2116 / -2115 240 / 240
Intake:
Oral fluids 1680 / 1680 840 / 840 240 / 240
Amount instilled into Drain (
Total)
Left Upper Abdomen A Placed in
IR
Output:
Liquid stool amount 175 / 175 600 / 600
Ileostomy 175 / 175 600 / 600
Drain Output (Total) 250 / 250 161 / 161
Left Filiberto-Roche B 80 / 80 56 / 56
Left Upper Abdomen A Placed in 170 / 170 105 / 105
IR
Urine, Voided 4650 / 4650 2200 / 2200
Lab Results
10/09/23 04:59
10/10/23 07:42
Physical Exam
-
General: No Acute Distress and AOx3
Abdomen: Soft, Non Distended, Non Tender and Other (Colostomy warm and pink with function, Drain A and B with feculent output)
Incision: Clear, Dry, Intact
[2023-10-10] MEDS: MYCAMINE 105 MG IV (12:06)
--- NOTE | 2023-10-10 13:55 | W.PN.HOSP.TC ---
Today's Communication/Plan
-
DC planning
Assessment / Plan
Assessment / Plan
Assessment:
Hyponatremia:
Improving sodium
Nephrology input appreciated
On 40 ounce fluid restriction patient and happy
s/p Semasca
Defer further recommendation to nephrology
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
- s/p Exploratory laparotomy, lysis of adhesions, aorto-mesenteric bypass Tona thrombectomy, mesenteric arteriogram, patch angioplasty of aorto-mesenteric bypass 09/12
- CT-A 09/13 showing patient bypass, concern for bowel ischemia (see below)
Ischemic bowel c/b necrotic bowel
- s/p ex-lap 09/20: Necrotic and perforated entire transverse colon, ischemic right colon and terminal ileum, ischemic left colon, ? ischemia of the proximal jejunum. 70 cm terminal colon with entire right colon, transverse colon and descending colon
removed.
- s/p 2nd look ex-lap 09/22 with Murky fluid throughout the abdomen, viable remaining small intestine with excellent Doppler signals, Haily ileostomy
- Transitioned to oral Eliquis 10/01 - Eliquis was on hold for drain placement -resume now that it is in place.CT A/P 10/05 showed collection - CRS recfommeding IR placement of drain
- ID following for suspected secondary peritonitis.
-Continue Micafungin; Meropenem per ID,
- Hematology input about hypercoagulable assessments noted -continue with anticoagulant and follow with office for work up.
Persistent neutrophilia-no changes to leukocytosis despite improving clinical improvement. I doubt still reactive to intra-abdominal infection. Patient on meropenem and micafungin. Currently on tapering steroids. Continue to follow and if
persistent despite coming off steroids look for myeloproliferative issues.
-improving
Ventilator dependent respiratory failure/acute hypoxic respiratory failure
- extubated 09/26
- Oxygenating well on nasal cannula
Post-op shock - multifactorial from sepsis/blood loss
- pressors weaned 09/26;Hemodynamics stable
- Echo normal EF
Delirium -post op -suspected TME. Off precedex.resolved
GI bleed related to ischemic colitis
Acute blood loss anemia
- monitor Hb -stable
- 1 unit given 09/27
- continue PPI
HTN - elevated BP noted .pt not a known HTN - Cardizem initiated .Uptitrate as needed. Blood pressure mostly under goal.
Moderate COPD/emphysema - Off of steroids taper for flare.
CAD s/p prior hx of NSTEMI - asymptomatic without chest pain. On aspirin at home.
Hyperbilirubinemia- mostly indirect elevation, possible Gilbert's + hematomas related. Continue to follow.
Abnormal LFTs - improving after TPN stopped
Hx of DVT status post apixaban 03/2021 post left knee surgery
Chronic back pain - recent steroid taper. Continued mid back pain which is a equally troubling. No sciatica . plain xrays show loss of height of superior endplate t12,l4 . Pt had pull while lifting something at home but no fall or trauma. continue
symptomatic tx
Hyperglycemia
No hx of DM
- HbA1C 5.8, close follow-up as an outpatient
- was on high doses of insulin due to combination of steroid use and TPN.
- Now off of KATERINE insulin SSI as pt off of TPN
Tobacco abuse - remains actively smoking. Cessation recommended.
Nutrition - on TPN and liquid diet
Occlusive thrombus left arm - throughout the cephalic vein in the forearm, antecubital fossa, and distal aspect of the upper arm
- continue anticoagulation, on Eliquis
DVT ppx: Eliquis
Code: Full
CW PT tx
If ok from CRS and ID will make plans for DC to [facility].
Anticipated Discharge: Within 24 hours
Subjective/Interval History
-
Date of Service: October 10, 2023
Tolerating solid diet
Objective Data
-
Labs:
Laboratory Results
10/10/23 10/10/23 10/10/23
07:42 07:42 07:42
Sodium 129 L Cancelled
Potassium 4.8 Cancelled
Chloride 95 L
Carbon Dioxide
BUN
Creatinine
Glucose
Calcium
10/10/23 10/10/23 10/10/23
07:42 07:42 07:42
Sodium
Potassium
Chloride Cancelled
Carbon Dioxide 30 Cancelled
BUN 9 Cancelled
Creatinine 0.7
Glucose
Calcium
10/10/23 10/10/23 10/10/23
07:42 07:42 07:42
Sodium
Potassium
Chloride
Carbon Dioxide
BUN
Creatinine Cancelled
Glucose 153 H Cancelled
Calcium 8.8 Cancelled
Vital Signs:
Vital Signs
Temp Pulse Resp BP Pulse Ox
98.6 F 95 14 147/94 96
10/10/23 07:00 10/10/23 07:00 10/10/23 07:00 10/10/23 07:00 10/10/23 07:00
I&O
10/09/23 10/10/23 10/11/23
06:59 06:59 06:59
Intake Total 1685 / 1685 845 / 845 240 / 240
Output Total 5075 / 5075 2961 / 2961 550 / 550
Balance -3390 / -3390 -2116 / -2116 -310 / -310
Review of Systems
-
Constitutional: Reports Weakness (in general); Denies Fever
Respiratory: Denies Trouble Breathing
Cardiac: Denies Chest Pain
Abdomen/GI: Denies Nausea or Vomiting
Neuro: Denies Dizzy
Physical Exam
-
General: No Apparent Distress
HEENT: Moist Mucous Membranes
Respiratory: Clear to Auscultation
Cardiac: Regular Rhythm and S1/S2
GI: Soft
Neuro: AO x 3
Psych: Calm
Data Reviewed
-
Labs: Labs Reviewed by me
--- NOTE | 2023-10-10 14:24 | W.PN.NEPH.PH ---
Today's Communication / Plan
-
- rediscussed fluid restrction
Assessment/Plan
-
Assessment:
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
s/p Exploratory laparotomy, lysis of adhesions, aorto-mesenteric bypass Tona thrombectomy, mesenteric arteriogram, patch angioplasty of aorto-mesenteric bypass 09/12
s/p 2nd look ex-lap 09/22 Haily ileostomy
GI bleed related to ischemic colitis
Hyponatremia due to SIADH (acute on chronic - baseline Na approx 131-134)
HTN
Moderate COPD/emphysema
CAD s/p prior hx of NSTEMI
Occlusive thrombus left arm
Plan
hyponatremia from SIADH & multifactorial
pt has difficulty to follow fluid restriction
which will be challenge to maintain sodium as outpatient
we reviewed that with out FR he is risk of acute hyponatremia and SZs
sodium decreased from 132 to 129 after liberation of FR
encourage solute intake
abx per ID
monitor GI out put
continue to trend BMPs
d/w pt in detail
-
-
Date of Service: October 10, 2023
CC / HPI / ROS
-
Chief Complaint:
hyponatremia
History of Present Illness:
Na improved to 132 s/p samsca 10/07, but now down to 129
acute mesenteric ischemia c/b ischemic bowel and necrosis
no fever, BP stable
Review of Systems:
offers no abd pain durign visit
no cp or sob
feels thirsty and drinks liquids, having hard time to follow FR
Labs
-
Labs:
WBC 14.2 10^3/uL (4.8-10.8) H 10/09/23 04:59
RBC 3.58 10^6/uL (4.70-6.10) L 10/09/23 04:59
Hgb 11.0 g/dL (13.0-18.0) L 10/09/23 04:59
Hct 32.4 % (39.0-52.0) L 10/09/23 04:59
Plt Count 371 10^3/uL (130-400) 10/09/23 04:59
Sodium 129 mmol/L (135-145) L 10/10/23 07:42
Sodium Cancelled 10/10/23 07:42
Potassium 4.8 mmol/L (3.5-5.1) 10/10/23 07:42
Potassium Cancelled 10/10/23 07:42
Chloride 95 mmol/L (98-107) L 10/10/23 07:42
Chloride Cancelled 10/10/23 07:42
Carbon Dioxide 30 mmol/L (22-30) 10/10/23 07:42
Carbon Dioxide Cancelled 10/10/23 07:42
BUN 9 mg/dl (9-20) 10/10/23 07:42
BUN Cancelled 10/10/23 07:42
Creatinine 0.7 mg/dL (0.7-1.3) 10/10/23 07:42
Creatinine Cancelled 10/10/23 07:42
eGFR > 60.00 10/10/23 07:42
eGFR Cancelled 10/10/23 07:42
Glucose 153 mg/dl (70-99) H 10/10/23 07:42
Glucose Cancelled 10/10/23 07:42
Calcium 8.8 mg/dl (8.4-10.2) 10/10/23 07:42
Calcium Cancelled 10/10/23 07:42
Phosphorus 4.5 mg/dl (2.5-4.5) 09/29/23 05:09
Gsl-B-Kdzwayyntzl Pept 1080 pg/ml 09/20/23 10:03
Albumin 2.9 g/dl (3.5-5.0) L 10/09/23 04:59
Physical Exam
-
Vital Signs:
Vital Signs
Temp Pulse Resp BP Pulse Ox
98.6 F 95 14 147/94 96
10/10/23 07:00 10/10/23 07:00 10/10/23 07:00 10/10/23 07:00 10/10/23 07:00
Cardiovascular:: Regular rate and rhythm
Lung Excursion:: Normal
Abdomen:: Distended, Soft and Tender
Bowel Sounds:: Normal
Extremity Edema:: None: Bilateral:
Chavez Catheter: No
[2023-10-10 15:00] VITALS: BP 155/84
[2023-10-10] MEDS: AMBIEN 5 MG PO (19:33)
[2023-10-10] MEDS: ELIQUIS 5 MG PO (19:33)
[2023-10-10 23:24] VITALS: BP 123/86
[2023-10-11] MEDS: MERREM 500 MG IV ×2 (03:47→09:03)
[2023-10-11] MEDS: STERILE WATER FOR INJECTION 10 ML IV ×2 (03:47→09:03)
[2023-10-11] MEDS: MORPHINE SULFATE 2 MG IV ×2 (03:52→21:29)
[2023-10-11 05:44] VITALS: BMI 18.7
[2023-10-11 07:00] VITALS: BP 133/83
[2023-10-11] MEDS: IMODIUM 2 MG PO ×4 (07:48→21:28)
[2023-10-11] MEDS: ASPIR LOW (ENTERIC COATED) 81 MG PO (07:48)
[2023-10-11] MEDS: CARDIZEM CD 120 MG PO (07:48)
[2023-10-11] MEDS: ELIQUIS 5 MG PO ×2 (07:48→20:15)
[2023-10-11] MEDS: METAMUCIL, KONSYL 1 PACKET PO (07:49)
[2023-10-11] MEDS: PROTONIX 40 MG PO (07:49)
[2023-10-11 08:56] LABS: Blood Urea Nitrogen 12 mg/dl (9-20); Calcium 8.6 mg/dl (8.4-10.2); Carbon Dioxide 29 mmol/L (22-30); Chloride 93 mmol/L (98-107); Estimated Creatinine Clearance 97 ml/min; Glucose 107 mg/dl (70-99); Potassium 4.7 mmol/L (3.5-5.1); Sodium 126 mmol/L (135-145); eGFR > 60.00
--- NOTE | 2023-10-11 09:09 | W.PN.GS2 ---
Today's Communication / Plan
-
Continue regular diet
Assessment / Plan
-
Assessment: 58-year-old male with complex hospitalization initially presenting with SMA thrombus/occlusion
POD #27 ex lap, SMA graft thrombectomy, patch angioplasty
POD #19 ex lap subtotal colectomy
POD #17 planned relook laparotomy, creation end ileostomy
PPD #3 IR LUQ drain placement
AFVSS
Drains still with feculent like outputs but abdominal exam stable and ostomy functioning
Hyponatremia persists, nephrology following/managing
Stoma output reasonable at 975ml
Plan: Continue regular diet
Continue drains and drain care (daily flush to IR drain)
Antibiotics per ID
Hyponatremia management as per Nephrology
Continue Loperamide QID/Metamucil daily and follow ostomy outputs closely
Stable on Eliquis 5mg BID
Subjective Data
-
Date of Service: October 11, 2023
Patient seen and examined at bedside with Dr. Diaz. Having difficulty with fluid restriction. Denies n/v. Tolerating diet but poor appetite.
Objective Data
-
Intake and Output
24 10/11/23 10/12/23
06:59 06:59 06:59
Intake Total 845 / 845 1140 / 1140 240 / 240
Output Total 2961 / 2961 2100 / 2100 300 / 300
Balance -2116 / -2116 -960 / -960 -60 / -60
Intake:
Oral fluids 840 / 840 1140 / 1140 240 / 240
Amount instilled into Drain (
Total)
Left Upper Abdomen A Placed in
IR
Output:
Liquid stool amount 600 / 600 975 / 975
Colostomy 200 / 200
Ileostomy 600 / 600 775 / 775
Drain Output (Total) 161 / 161 200 / 200
Left Filiberto-Roche B 56 / 56 35 / 35
Left Upper Abdomen A Placed in 105 / 105 40 / 40
IR
Right Filiberto-Roche A 125 / 125
Urine, Voided 2200 / 2200 925 / 925 300 / 300
Vital Signs
Temp Pulse Resp BP Pulse Ox
97.9 F 96 16 123/86 98
10/11/23 07:00 10/11/23 07:48 10/11/23 07:00 10/11/23 07:48 10/11/23 07:00
Lab Results
10/09/23 04:59
10/11/23 07:55
Calcium 8.6 mg/dl (8.4-10.2) 10/11/23 07:55
Phosphorus 4.5 mg/dl (2.5-4.5) 09/29/23 05:09
Magnesium 2.2 mg/dl (1.6-2.3) 10/09/23 04:59
Total Bilirubin 1.2 mg/dl (0.2-1.3) 10/09/23 04:59
Direct Bilirubin 1.0 mg/dl (0.0-0.4) H 09/23/23 04:46
AST 40 U/L (17-59) 10/09/23 04:59
ALT 48 U/L (0-50) 10/09/23 04:59
Alkaline Phosphatase 177 U/L (38-126) H 10/09/23 04:59
Total Protein 6.0 g/dl (6.3-8.2) L 10/09/23 04:59
Albumin 2.9 g/dl (3.5-5.0) L 10/09/23 04:59
Physical Exam
-
NAD, AAOx3
ABD: Soft, nondistended, right lower quadrant ostomy with liquid stool some gas
Left-sided CHAY and Left IR drain both with murky choe/brown outputs
Midline incision with intact christin
[2023-10-11] MEDS: SAMSCA 7.5 MG PO (10:01)
[2023-10-11] MEDS: MYCAMINE 105 MG IV (11:26)
[2023-10-11] MEDS: ZOSYN 100 IV ×3 (12:10→23:56)
--- NOTE | 2023-10-11 13:17 | W.PN.HOSP.TC ---
Today's Communication/Plan
-
CW IV abx and diet
CW PT eval
DC planning
Assessment / Plan
Assessment / Plan
Assessment:
Hyponatremia:
Fluctuating sodium
On fluid restriction patient
s/p Semasca
Defer further recommendation to nephrology
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
- s/p Exploratory laparotomy, lysis of adhesions, aorto-mesenteric bypass Tona thrombectomy, mesenteric arteriogram, patch angioplasty of aorto-mesenteric bypass 09/12
- CT-A 09/13 showing patient bypass, concern for bowel ischemia (see below)
Ischemic bowel c/b necrotic bowel
- s/p ex-lap 09/20: Necrotic and perforated entire transverse colon, ischemic right colon and terminal ileum, ischemic left colon, ? ischemia of the proximal jejunum. 70 cm terminal colon with entire right colon, transverse colon and descending colon
removed.
- s/p 2nd look ex-lap 09/22 with Murky fluid throughout the abdomen, viable remaining small intestine with excellent Doppler signals, Haily ileostomy
-CT A/P 10/05 showed collection - CRS recommending IR placement of drain which is in place .Eliquis resumed now that it is in place.
- ID following for suspected secondary peritonitis.
-Continue Micafungin; Meropenem per ID,
- Hematology input about hypercoagulable assessments noted -continue with anticoagulant and follow with office for work up.
Persistent neutrophilia-no changes to leukocytosis despite improving clinical improvement. I doubt still reactive to intra-abdominal infection. Patient on meropenem and micafungin. Currently on tapering steroids. Continue to follow and if
persistent despite coming off steroids look for myeloproliferative issues.
-improving
Ventilator dependent respiratory failure/acute hypoxic respiratory failure
- extubated 09/26
- Oxygenating well on nasal cannula
Post-op shock - multifactorial from sepsis/blood loss
- pressors weaned 09/26;Hemodynamics stable
- Echo normal EF
Delirium -post op -suspected TME. Off precedex.resolved
GI bleed related to ischemic colitis
Acute blood loss anemia
- monitor Hb -stable
- 1 unit given 09/27
- continue PPI
HTN - elevated BP noted .pt not a known HTN - Cardizem initiated .Uptitrate as needed. Blood pressure mostly under goal.
Moderate COPD/emphysema - Off of steroids taper for flare.
CAD s/p prior hx of NSTEMI - asymptomatic without chest pain. On aspirin at home.
Hyperbilirubinemia- mostly indirect elevation, possible Gilbert's + hematomas related. Continue to follow.
Abnormal LFTs - improved after TPN stopped
Hx of DVT status post apixaban 03/2021 post left knee surgery
Chronic back pain - recent steroid taper. Continued mid back pain which is a equally troubling. No sciatica . plain xrays show loss of height of superior endplate t12,l4 . Pt had pull while lifting something at home but no fall or trauma. continue
symptomatic tx
Hyperglycemia
No hx of DM
- HbA1C 5.8, close follow-up as an outpatient
- was on high doses of insulin due to combination of steroid use and TPN.
- Now off of KATERINE insulin SSI as pt off of TPN
Tobacco abuse - remains actively smoking. Cessation recommended.
Nutrition - on TPN and liquid diet
Occlusive thrombus left arm - throughout the cephalic vein in the forearm, antecubital fossa, and distal aspect of the upper arm
- continue anticoagulation, on Eliquis
DVT ppx: Eliquis
Code: Full
CW PT tx
when ok from CRS and ID will make plans for DC to [facility].
Anticipated Discharge: > 48 hours
Subjective/Interval History
-
Date of Service: October 11, 2023
Remains deconditioned
But tolerating oral diet
No dizziness
Objective Data
-
Labs:
Laboratory Results
10/11/23
07:55
Sodium 126 L
Potassium 4.7
Chloride 93 L
Carbon Dioxide 29
BUN 12
Creatinine 0.7
Glucose 107 H
Calcium 8.6
Vital Signs:
Vital Signs
Temp Pulse Resp BP Pulse Ox
97.9 F 96 16 123/86 98
10/11/23 07:00 10/11/23 07:48 10/11/23 07:00 10/11/23 07:48 10/11/23 07:00
I&O
10/10/23 10/11/23 10/12/23
06:59 06:59 06:59
Intake Total 845 / 845 1140 / 1140 250 / 250
Output Total 2961 / 2961 2100 / 2100 330 / 330
Balance -2116 / -2116 -960 / -960 -80 / -80
Review of Systems
-
Constitutional: Denies Fever
EENT: Denies Sore Throat
Respiratory: Denies Cough or Trouble Breathing
Cardiac: Denies Chest Pain
Physical Exam
-
General: No Apparent Distress
HEENT: Moist Mucous Membranes
Respiratory: Clear to Auscultation
Cardiac: Regular Rhythm and S1/S2
GI: Soft and Nontender
Neuro: AO x 3
Psych: Calm
Data Reviewed
-
Labs: Labs Reviewed by me
--- NOTE | 2023-10-11 13:36 | W.PN.ID1 ---
Date of Service
Date of Service: October 11, 2023
Today's Communication
switch to zosyn and oral fluconazole
Assessment / Plan
Sujatha peritonitis,
Leukocytosis
- Improving
Total SMA graft occlusion
- s/p thrombectomy (performed through prior graft) & patch repair
Acute mesenteric ischemia - resolved
Transaminitis - resolving
Hx medication noncompliance
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
Recommendations:
- drain replaced into collection
- drain culture: Pseudomonas
- start zosyn, stop meropenem
- start fluconazole, follow ostomy output - high oral absorption
- check Qtc friday
- complete splenic infarction
- patient will need post splenectomy vaccines as an outpatient; will arrange these through my office
- follow clinically
plan for chronic suppression if feasible
����������������������������������������������������������
Chief Complaint
-: Leukocytosis and Other (secondary peritonitis)
Subjective / Review of Systems
afebrile
bp stable
further improved wbc
cr stable
sensi back on the pseudomonas
in better spirits today
Vital Signs / Physical Exam
Vital Signs
Vital Signs
Temp Pulse Resp BP Pulse Ox
97.9 F 96 16 123/86 98
10/11/23 07:00 10/11/23 07:48 10/11/23 07:00 10/11/23 07:48 10/11/23 07:00
Physical Exam
Constitutional: No Acute Distress
Cardiovascular: Regular Rate and S1/S2; Negative Murmur or Rub
Pulmonary: Clear and Symmetric; Negative Wheezes or Rales
Gastrointestinal: Soft, Non Tender, Non Distended and Normal Bowel Sounds
Skin: Warm and Dry; Negative Rash or Jaundice
Objective Data
Lab Data
Lab Results
10/09/23 04:59
10/11/23 07:55
ESR 38 mm/hour (0-20) H 10/09/23 04:59
PT 17.8 Sec (11.4-14.6) H 09/13/23 03:17
INR 1.49 09/13/23 03:17
APTT Cancelled 10/02/23 12:30
Estimated Creat Clear 97 ml/min 10/11/23 07:55
Lactic Acid 1.5 mmol/L (0.7-2.0) 09/21/23 17:38
Total Bilirubin 1.2 mg/dl (0.2-1.3) 10/09/23 04:59
AST 40 U/L (17-59) 10/09/23 04:59
ALT 48 U/L (0-50) 10/09/23 04:59
Alkaline Phosphatase 177 U/L (38-126) H 10/09/23 04:59
C-Reactive Protein 161.70 mg/L (0.0-10.00) H 10/09/23 04:59
Amylase 252 U/L (30-110) H 10/07/23 04:25
Most recent labs reviewed.
Wound/abscess/other Cult Final 10/11/23-0942
Moderate Pseudomonas aeruginosa
Organism 1 Pseudomonas aeruginosa
1. Pseudomonas aeruginosa
M.I.C. RX
--------- ---
Cefepime 4 S
Ceftazidime 4 S
Ciprofloxacin 1 I
Gentamicin <=4 S
Levofloxacin <=0.5 S
Meropenem 8 R
Piperacillin/Tazobactam <=16 S
Tobramycin <=4 S
Micro Results:
10/08/23 13:12 Wound Culture - Final
Abscess Pseudomonas aeruginosa
Gram Stain - Final
10/08/23 14:48 Wound Culture - Final
Abscess Pseudomonas aeruginosa
Gram Stain - Final
09/23/23 16:45 Body Fluid Culture - Final
Fluid Sujatha albicans
Gram Stain - Final
09/23/23 16:45 Anaerobic Culture - Final
Abdomen NO ANAEROBES ISOLATED
09/21/23 15:00 Wound Culture - Final
Abdomen Sujatha albicans
Gram Stain - Final
09/21/23 15:00 Anaerobic Culture - Final
Peritoneal Fluid NO ANAEROBES ISOLATED
09/20/23 10:03 Blood Culture - Final
Blood/Venous No Growth - Final Report
09/20/23 10:11 Blood Culture - Final
Blood/Venous No Growth - Final Report
09/12/23 18:05 Blood Culture - Final
Blood/Venous No Growth - Final Report
09/12/23 18:05 Influenza Types A & B (ALAN) - Final
Nasal Swab Negative for Influenza A & B, NAAT
Negative results must be combined with clinical observations
and patient history.
Nucleic Acid Amplification test (NAAT)performed on the
[employer] platform.
Imaging:
09/26/2023 CXR (portable): Persistent bibasilar atelectasis and pleural fluid. Little change from previous exams.
Care Review
Plan reviewed with: Other Provider (CATHODE [employer] - surgery - abx)
--- NOTE | 2023-10-11 14:24 | W.PN.NEPH.PH ---
Today's Communication / Plan
-
- samsca today
Assessment/Plan
-
Assessment:
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
s/p Exploratory laparotomy, lysis of adhesions, aorto-mesenteric bypass Tona thrombectomy, mesenteric arteriogram, patch angioplasty of aorto-mesenteric bypass 09/12
s/p 2nd look ex-lap 09/22 Haily ileostomy
GI bleed related to ischemic colitis
Hyponatremia due to SIADH (acute on chronic - baseline Na approx 131-134)
HTN
Moderate COPD/emphysema
CAD s/p prior hx of NSTEMI
Occlusive thrombus left arm
Plan
hyponatremia from SIADH & multifactorial
pt has difficulty to follow fluid restriction
which will be challenge to maintain sodium as outpatient
we reviewed that with out FR he is risk of acute hyponatremia and SZs
sodium decreased from 132 to 129 to 126 after liberation of FR
patient unwilling for me to restrict again
samsca today, then likely lasix afterwards
encourage solute intake
abx per ID
monitor GI out put
continue to trend BMPs
d/w pt in detail
-
-
Date of Service: October 11, 2023
CC / HPI / ROS
-
Chief Complaint:
hyponatremia
History of Present Illness:
Na improved to 132 s/p samsca 10/07, but now down to 126
acute mesenteric ischemia c/b ischemic bowel and necrosis
no fever, BP stable
Review of Systems:
offers no abd pain durign visit
no cp or sob
feels thirsty and drinks liquids, having hard time to follow FR
Labs
-
Labs:
WBC 14.2 10^3/uL (4.8-10.8) H 10/09/23 04:59
RBC 3.58 10^6/uL (4.70-6.10) L 10/09/23 04:59
Hgb 11.0 g/dL (13.0-18.0) L 10/09/23 04:59
Hct 32.4 % (39.0-52.0) L 10/09/23 04:59
Plt Count 371 10^3/uL (130-400) 10/09/23 04:59
Sodium 126 mmol/L (135-145) L 10/11/23 07:55
Potassium 4.7 mmol/L (3.5-5.1) 10/11/23 07:55
Chloride 93 mmol/L (98-107) L 10/11/23 07:55
Carbon Dioxide 29 mmol/L (22-30) 10/11/23 07:55
BUN 12 mg/dl (9-20) 10/11/23 07:55
Creatinine 0.7 mg/dL (0.7-1.3) 10/11/23 07:55
eGFR > 60.00 10/11/23 07:55
Glucose 107 mg/dl (70-99) H 10/11/23 07:55
Calcium 8.6 mg/dl (8.4-10.2) 10/11/23 07:55
Phosphorus 4.5 mg/dl (2.5-4.5) 09/29/23 05:09
Lfg-P-Tralvmvmbxt Pept 1080 pg/ml 09/20/23 10:03
Albumin 2.9 g/dl (3.5-5.0) L 10/09/23 04:59
Physical Exam
-
Vital Signs:
Vital Signs
Temp Pulse Resp BP Pulse Ox
97.9 F 96 16 123/86 98
10/11/23 07:00 10/11/23 07:48 10/11/23 07:00 10/11/23 07:48 10/11/23 07:00
Cardiovascular:: Regular rate and rhythm
Respiratory:: Bilateral: CTA
Lung Excursion:: Normal
Abdomen:: Nontender and Soft
Bowel Sounds:: Normal
Extremity Edema:: None: Bilateral:
Chavez Catheter: No
[2023-10-11 15:00] VITALS: BP 127/80
[2023-10-11 15:59] VITALS: BP 143/87; PULSE 86; O2SAT 97
[2023-10-11] MEDS: AMBIEN 5 MG PO (20:15)
[2023-10-11 23:05] VITALS: BP 138/84
[2023-10-12] MEDS: MORPHINE SULFATE 2 MG IV ×2 (03:11→21:18)
[2023-10-12] MEDS: ZOSYN 100 IV ×4 (05:57→23:17)
[2023-10-12 06:00] VITALS: BMI 18.6
[2023-10-12 06:02] LABS: Blood Urea Nitrogen 9 mg/dl (9-20); Calcium 8.9 mg/dl (8.4-10.2); Carbon Dioxide 31 mmol/L (22-30); Chloride 91 mmol/L (98-107); Estimated Creatinine Clearance 84 ml/min; Glucose 113 mg/dl (70-99); Potassium 4.4 mmol/L (3.5-5.1); Sodium 128 mmol/L (135-145); eGFR > 60.00
[2023-10-12 07:05] VITALS: BP 142/81
[2023-10-12] MEDS: ASPIR LOW (ENTERIC COATED) 81 MG PO (07:29)
[2023-10-12] MEDS: CARDIZEM CD 120 MG PO (07:29)
[2023-10-12] MEDS: ELIQUIS 5 MG PO ×2 (07:29→19:20)
[2023-10-12] MEDS: IMODIUM 2 MG PO ×4 (07:29→21:17)
[2023-10-12] MEDS: PROTONIX 40 MG PO (07:30)
[2023-10-12] MEDS: METAMUCIL, KONSYL 1 PACKET PO (07:30)
[2023-10-12] MEDS: DIFLUCAN 200 MG PO (07:30)
--- NOTE | 2023-10-12 10:12 | W.PN.GS2 ---
Today's Communication / Plan
-
Continue drains/abx
Assessment / Plan
-
Assessment: 58-year-old male with complex hospitalization initially presenting with SMA thrombus/occlusion
POD #28 ex lap, SMA graft thrombectomy, patch angioplasty
POD #20 ex lap subtotal colectomy
POD #18 planned relook laparotomy, creation end ileostomy
PPD #4 IR LUQ drain placement
AFVSS
Drains still with feculent like outputs, although minimal amounts. Abdominal exam stable and ostomy functioning
Hyponatremia persists, nephrology following/managing
Stoma output reasonable at 550ml
IR culture with Merrem resistant pseudomonas
Plan: Continue regular diet
Continue drains and drain care (daily flush to IR drain), will likely be discharged with drains in place
Antibiotics per ID
Hyponatremia management as per Nephrology
Continue Loperamide QID/Metamucil daily and follow ostomy outputs
Stable on Eliquis 5mg BID
Subjective Data
-
Date of Service: October 12, 2023
Patient seen and examined at bedside with Dr. Diaz. Denies pain. Notes the drains have been uncomfortable positionally. Denies n/v. Tolerating diet but poor appetite.
Objective Data
-
Intake and Output
10/11/23 10/12/23 10/13/23
06:59 06:59 06:59
Intake Total 1140 / 1140 2800 / 2800
Output Total 2100 / 2100 2600 / 2600
Balance -960 / -960 200 / 200
Intake:
Oral fluids 1140 / 1140 2490 / 2490
IV piggybacks 300 / 300
Amount instilled into Drain (
Total)
Left Filiberot-Roche B
Left Upper Abdomen A Placed in
IR
Output:
Liquid stool amount 975 / 975 550 / 550
Colostomy 200 / 200 250 / 250
Ileostomy 775 / 775 300 / 300
Drain Output (Total) 200 / 200 50 / 50
Left Filiberto-Roche B 35 / 35 5 / 5
Left Upper Abdomen A Placed in 40 / 40
IR
Right Filiberto-Roche A 125 / 125 45 / 45
Urine, Voided 925 / 925 1999
Other:
Number of approximated MODERATE 4
amounts of urine
Vital Signs
Temp Pulse Resp BP Pulse Ox
98.2 F 90 14 138/84 98
10/12/23 07:05 10/12/23 07:29 10/12/23 07:05 10/12/23 07:29 10/12/23 07:05
Lab Results
10/09/23 04:59
10/12/23 04:43
Calcium 8.9 mg/dl (8.4-10.2) 10/12/23 04:43
Phosphorus 4.5 mg/dl (2.5-4.5) 09/29/23 05:09
Magnesium 2.2 mg/dl (1.6-2.3) 10/09/23 04:59
Total Bilirubin 1.2 mg/dl (0.2-1.3) 10/09/23 04:59
Direct Bilirubin 1.0 mg/dl (0.0-0.4) H 09/23/23 04:46
AST 40 U/L (17-59) 10/09/23 04:59
ALT 48 U/L (0-50) 10/09/23 04:59
Alkaline Phosphatase 177 U/L (38-126) H 10/09/23 04:59
Total Protein 6.0 g/dl (6.3-8.2) L 10/09/23 04:59
Albumin 2.9 g/dl (3.5-5.0) L 10/09/23 04:59
Physical Exam
-
NAD, AAOx3
ABD: Soft, nondistended, right lower quadrant ostomy with loose stool some gas
Left-sided CHAY and Left IR drain both with murky choe/brown outputs
Midline incision with intact chrisitn
--- NOTE | 2023-10-12 10:21 | W.PN.HOSP.TC ---
Today's Communication/Plan
-
cw antimicrobials
dc planning
Assessment / Plan
Assessment / Plan
Assessment:
Hyponatremia:
Fluctuating sodium
On fluid restriction patient
s/p Semasca
Nephrology following
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
- s/p Exploratory laparotomy, lysis of adhesions, aorto-mesenteric bypass Tona thrombectomy, mesenteric arteriogram, patch angioplasty of aorto-mesenteric bypass 09/12
- CT-A 09/13 showing patient bypass, concern for bowel ischemia (see below)
Ischemic bowel c/b necrotic bowel
- s/p ex-lap 09/20: Necrotic and perforated entire transverse colon, ischemic right colon and terminal ileum, ischemic left colon, ? ischemia of the proximal jejunum. 70 cm terminal colon with entire right colon, transverse colon and descending colon
removed.
- s/p 2nd look ex-lap 09/22 with Murky fluid throughout the abdomen, viable remaining small intestine with excellent Doppler signals, Haily ileostomy
-CT A/P 10/05 showed collection - CRS recommending IR placement of drain which is in place .Eliquis resumed now that it is in place.
- ID following for suspected secondary peritonitis.
- Continue antimicrobials per ID
- Hematology input about hypercoagulable assessments noted -continue with anticoagulant and follow with office for work up.
Persistent neutrophilia-no changes to leukocytosis despite improving clinical improvement. I doubt still reactive to intra-abdominal infection. Patient on meropenem and micafungin. Currently on tapering steroids. Continue to follow and if
persistent despite coming off steroids look for myeloproliferative issues.
-improving
Ventilator dependent respiratory failure/acute hypoxic respiratory failure
- extubated 09/26
- Oxygenating well on nasal cannula
Post-op shock - multifactorial from sepsis/blood loss
- pressors weaned 09/26;Hemodynamics stable
- Echo normal EF
Delirium -post op -suspected TME. Off precedex.resolved
GI bleed related to ischemic colitis
Acute blood loss anemia
- monitor Hb -stable
- 1 unit given 09/27
- continue PPI
HTN - elevated BP noted .pt not a known HTN - Cardizem initiated .Uptitrate as needed. Blood pressure mostly under goal.
Moderate COPD/emphysema - Off of steroids taper for flare.
CAD s/p prior hx of NSTEMI - asymptomatic without chest pain. On aspirin at home.
Hyperbilirubinemia- mostly indirect elevation, possible Gilbert's + hematomas related. Continue to follow.
Abnormal LFTs - improved after TPN stopped
Hx of DVT status post apixaban 03/2021 post left knee surgery
Chronic back pain - recent steroid taper. Continued mid back pain which is a equally troubling. No sciatica . plain xrays show loss of height of superior endplate t12,l4 . Pt had pull while lifting something at home but no fall or trauma. continue
symptomatic tx
Hyperglycemia
No hx of DM
- HbA1C 5.8, close follow-up as an outpatient
- was on high doses of insulin due to combination of steroid use and TPN.
- Now off of KATERINE insulin SSI as pt off of TPN
Tobacco abuse - remains actively smoking. Cessation recommended.
Nutrition - on TPN and liquid diet
Occlusive thrombus left arm - throughout the cephalic vein in the forearm, antecubital fossa, and distal aspect of the upper arm
- continue anticoagulation, on Eliquis
DVT ppx: Eliquis
Code: Full
CW PT tx
when ok from CRS and ID will make plans for DC to [facility].
Anticipated Discharge: 24 - 48 hours
Subjective/Interval History
-
Date of Service: October 12, 2023
Feels ok
Objective Data
-
Labs:
Laboratory Results
10/12/23
04:43
Sodium 128 L
Potassium 4.4
Chloride 91 L
Carbon Dioxide 31 H
BUN 9
Creatinine 0.8
Glucose 113 H
Calcium 8.9
Vital Signs:
Vital Signs
Temp Pulse Resp BP Pulse Ox
98.2 F 90 14 138/84 98
10/12/23 07:05 10/12/23 07:29 10/12/23 07:05 10/12/23 07:29 10/12/23 07:05
I&O
10/11/23 10/12/23 10/13/23
06:59 06:59 06:59
Intake Total 1140 / 1140 2800 / 2800
Output Total 2100 / 2100 2600 / 2600
Balance -960 / -960 200 / 200
Review of Systems
-
Constitutional: Denies Fever
Respiratory: Denies Trouble Breathing
Cardiac: Denies Chest Pain
Abdomen/GI: Denies Nausea or Vomiting
Neuro: Denies Dizzy
Physical Exam
-
General: No Apparent Distress
HEENT: Moist Mucous Membranes
Respiratory: Clear to Auscultation
Cardiac: Regular Rhythm and S1/S2
GI: Soft and Ostomy
Neuro: AO x 3
Psych: Calm; Negative Confused
Data Reviewed
-
Labs: Labs Reviewed by me
--- NOTE | 2023-10-12 13:16 | W.PN.NEPH.PH ---
Today's Communication / Plan
-
- samsca
Assessment/Plan
-
Assessment:
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
s/p Exploratory laparotomy, lysis of adhesions, aorto-mesenteric bypass Tona thrombectomy, mesenteric arteriogram, patch angioplasty of aorto-mesenteric bypass 09/12
s/p 2nd look ex-lap 09/22 Haily ileostomy
GI bleed related to ischemic colitis
Hyponatremia due to SIADH (acute on chronic - baseline Na approx 131-134)
HTN
Moderate COPD/emphysema
CAD s/p prior hx of NSTEMI
Occlusive thrombus left arm
Plan
hyponatremia from SIADH & multifactorial
pt has difficulty to follow fluid restriction
which will be challenge to maintain sodium as outpatient
we reviewed that without FR he is risk of acute hyponatremia and SZs
sodium decreased from 132 to 129 to 126 after liberation of FR
patient unwilling for me to restrict again
samsca today, then likely lasix afterwards
encourage solute intake
abx per ID
monitor GI out put
continue to trend BMPs
d/w pt in detail
-
-
Date of Service: October 12, 2023
CC / HPI / ROS
-
Chief Complaint:
hyponatremia
History of Present Illness:
Na improved to 132 s/p samsca 10/07, 10/10. Na 128. samsca again today
acute mesenteric ischemia c/b ischemic bowel and necrosis
no fever, BP stable
Review of Systems:
offers no abd pain durign visit
no cp or sob
feels thirsty and drinks liquids, having hard time to follow FR
Labs
-
Labs:
WBC 14.2 10^3/uL (4.8-10.8) H 10/09/23 04:59
RBC 3.58 10^6/uL (4.70-6.10) L 10/09/23 04:59
Hgb 11.0 g/dL (13.0-18.0) L 10/09/23 04:59
Hct 32.4 % (39.0-52.0) L 10/09/23 04:59
Plt Count 371 10^3/uL (130-400) 10/09/23 04:59
Sodium 128 mmol/L (135-145) L 10/12/23 04:43
Potassium 4.4 mmol/L (3.5-5.1) 10/12/23 04:43
Chloride 91 mmol/L (98-107) L 10/12/23 04:43
Carbon Dioxide 31 mmol/L (22-30) H 10/12/23 04:43
BUN 9 mg/dl (9-20) 10/12/23 04:43
Creatinine 0.8 mg/dL (0.7-1.3) 10/12/23 04:43
eGFR > 60.00 10/12/23 04:43
Glucose 113 mg/dl (70-99) H 10/12/23 04:43
Calcium 8.9 mg/dl (8.4-10.2) 10/12/23 04:43
Phosphorus 4.5 mg/dl (2.5-4.5) 09/29/23 05:09
Ega-M-Aritgvbklli Pept 1080 pg/ml 09/20/23 10:03
Albumin 2.9 g/dl (3.5-5.0) L 10/09/23 04:59
Physical Exam
-
Vital Signs:
Vital Signs
Temp Pulse Resp BP Pulse Ox
98.2 F 90 14 138/84 98
10/12/23 07:05 10/12/23 07:29 10/12/23 07:05 10/12/23 07:29 04/14/24 07:05
Cardiovascular:: Regular rate and rhythm
Respiratory:: Bilateral: CTA
Lung Excursion:: Normal
Abdomen:: Nontender and Soft
Bowel Sounds:: Normal
Extremity Edema:: None: Bilateral:
Chavez Catheter: No
[2023-10-12] MEDS: SAMSCA 7.5 MG PO (13:37)
[2023-10-12 16:10] VITALS: BP 146/85
[2023-10-12] MEDS: AMBIEN 5 MG PO (19:20)
[2023-10-12 23:00] VITALS: BP 140/80
[2023-10-13] MEDS: MORPHINE SULFATE 2 MG IV ×2 (02:00→21:02)
[2023-10-13 05:21] LABS: Hematocrit 31.6 % (39.0-52.0); Hemoglobin 10.5 g/dL (13.0-18.0); Mean Corp Hgb Conc. 33.2 g/dL (33.0-37.0); Mean Corpuscular Hgb 29.8 pg (27.0-31.0); Mean Corpuscular Volume 89.8 fL (80.0-94.0); Mean Platelet Volume 10.2 fL (7.4-10.4); Platelet Count 391 10^3/uL (130-400); Red Blood Cell Count 3.52 10^6/uL (4.70-6.10); Red Cell Dist. Width 17.2 % (11.5-14.5); White Blood Cell Count 17.8 10^3/uL (4.8-10.8)
[2023-10-13 05:54] LABS: Blood Urea Nitrogen 7 mg/dl (9-20); Calcium 8.7 mg/dl (8.4-10.2); Carbon Dioxide 30 mmol/L (22-30); Chloride 97 mmol/L (98-107); Estimated Creatinine Clearance 84 ml/min; Glucose 108 mg/dl (70-99); Potassium 4.2 mmol/L (3.5-5.1); Sodium 130 mmol/L (135-145); eGFR > 60.00
[2023-10-13] MEDS: ZOSYN 100 IV ×4 (05:57→23:48)
[2023-10-13 07:30] VITALS: BP 138/79
[2023-10-13] MEDS: CARDIZEM CD 120 MG PO (08:54)
[2023-10-13] MEDS: DIFLUCAN 200 MG PO (08:54)
[2023-10-13] MEDS: METAMUCIL, KONSYL 1 PACKET PO (08:54)
[2023-10-13] MEDS: PROTONIX 40 MG PO (08:54)
[2023-10-13] MEDS: ASPIR LOW (ENTERIC COATED) 81 MG PO (08:54)
[2023-10-13] MEDS: IMODIUM 2 MG PO ×4 (08:54→21:00)
[2023-10-13] MEDS: ELIQUIS 5 MG PO ×2 (08:54→20:55)
--- NOTE | 2023-10-13 10:23 | W.PN.CRS1 ---
Today's Communication / Plan
-
christin removed
Assessment/Plan
-
Assessment: 58-year-old male with complex hospitalization initially presenting with SMA thrombus/occlusion
POD #29 ex lap, SMA graft thrombectomy, patch angioplasty
POD #21 ex lap subtotal colectomy
POD #19 planned relook laparotomy, creation end ileostomy
Plan:
1. On a regular diet with fiber supplement.
2. Antibiotics per ID
3. Christin removed at bedside.
4. On Imodium to QID due to liquid stool output (600ml).
5. Continue drains. Will need eventual drain study.
6. Dispo: [facility]
Subjective Data
Procedure
09/21/2023- Exploratory laparotomy, subtotal colectomy (takedown of splenic flexure)
09/23/2023- 2nd look laparotomy and ileostomy (reopening of recent laparotomy)
Subjective Data
Date of Service: October 13, 2023
Patient states he overall feels well. He has no real complaints. He is tolerating a diet. He denies nausea or vomiting. His pain is controlled.
Objective Data
-
Vital Signs
Temp Pulse Resp BP Pulse Ox
97.9 F 90 18 138/79 97
10/13/23 07:30 10/13/23 07:30 10/13/23 07:30 10/13/23 07:30 10/13/23 07:30
Intake & Output
10/12/23 10/13/23 10/14/23
06:59 06:59 06:59
Intake Total 2800 / 2800 3280 / 3280
Output Total 2600 / 2600 3215 / 3215
Balance 200 / 200 65 / 65
Intake:
Oral fluids 2490 / 2490 2880 / 2880
IV piggybacks 300 / 300 400 / 400
Amount instilled into Drain (
Total)
Left Filiberto-Roche B
Left Upper Abdomen A Placed in
IR
Output:
Liquid stool amount 550 / 550 650 / 650
Colostomy 250 / 250
Ileostomy 300 / 300 650 / 650
Drain Output (Total) 50 / 50
Left Filiberto-Roche B
Right Filiberto-Roche A 45 45
Urine, Voided 1999 2550 / 2550
Other:
Number of approximated MODERATE 4 1
amounts of urine
Lab Results
10/13/23 04:39
10/13/23 04:39
Physical Exam
-
General: No Acute Distress and AOx3
Abdomen: Soft, Non Distended, Non Tender and Other ([address], both green and murky , stoma warm and pink with output)
Incision: Clear, Dry, Intact
[2023-10-13 12:42] VITALS: BP 170/101
--- NOTE | 2023-10-13 14:17 | W.PN.HOSP.TC ---
Today's Communication/Plan
-
CW ABX
CW Drains
Follow WBC
Assessment / Plan
Assessment / Plan
Assessment:
Hyponatremia:
Fluctuating sodium
On fluid restriction patient
s/p Semasca 10/10
Nephrology following
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
- s/p Exploratory laparotomy, lysis of adhesions, aorto-mesenteric bypass Tona thrombectomy, mesenteric arteriogram, patch angioplasty of aorto-mesenteric bypass 09/12
- CT-A 09/13 showing patient bypass, concern for bowel ischemia (see below)
Ischemic bowel c/b necrotic bowel
- s/p ex-lap 09/20: Necrotic and perforated entire transverse colon, ischemic right colon and terminal ileum, ischemic left colon, ? ischemia of the proximal jejunum. 70 cm terminal colon with entire right colon, transverse colon and descending colon
removed.
- s/p 2nd look ex-lap 09/22 with Murky fluid throughout the abdomen, viable remaining small intestine with excellent Doppler signals, Haily ileostomy
-CT A/P 10/05 showed collection - s/p IR placement of drain .Eliquis resumed .
- ID following for suspected secondary peritonitis.
- Continue antimicrobials per ID
- Hematology input about hypercoagulable assessments noted -continue with anticoagulant and follow with office for work up.
Persistent neutrophilia-no changes to leukocytosis despite improving clinical improvement. I doubt still reactive to intra-abdominal infection. Patient on meropenem and micafungin. Currently on tapering steroids. Continue to follow and if
persistent despite coming off steroids look for myeloproliferative issues.
-fluctuating;no fevers
Ventilator dependent respiratory failure/acute hypoxic respiratory failure
- extubated 09/26
- Oxygenating well on nasal cannula
Post-op shock - multifactorial from sepsis/blood loss
- pressors weaned 09/26;Hemodynamics stable
- Echo normal EF
Delirium -post op -suspected TME. Off precedex.resolved
GI bleed related to ischemic colitis
Acute blood loss anemia
- monitor Hb -stable
- last unit given 09/27
- continue PPI
HTN - elevated BP noted .pt not a known HTN - Cardizem initiated .Uptitrate as needed. Blood pressure mostly under goal.
Moderate COPD/emphysema - Off of steroids taper for flare.
CAD s/p prior hx of NSTEMI - asymptomatic without chest pain. On aspirin at home.
Hyperbilirubinemia- mostly indirect elevation, possible Gilbert's + hematomas related. Continue to follow.
Abnormal LFTs - improved after TPN stopped
Hx of DVT status post apixaban 03/2021 post left knee surgery
Chronic back pain - recent steroid taper. Continued mid back pain which is a equally troubling. No sciatica . plain xrays show loss of height of superior endplate t12,l4 . Pt had pull while lifting something at home but no fall or trauma. continue
symptomatic tx
Hyperglycemia
No hx of DM
- HbA1C 5.8, close follow-up as an outpatient
- was on high doses of insulin due to combination of steroid use and TPN.
- Now off of KATERINE insulin SSI as pt off of TPN
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
Nutrition -on oral diet
Occlusive thrombus left arm - throughout the cephalic vein in the forearm, antecubital fossa, and distal aspect of the upper arm
- continue anticoagulation, on Eliquis
DVT ppx: Eliquis
Code: Full
CW PT tx
when ok from CRS and ID will make plans for DC to [facility].
Anticipated Discharge: 24 - 48 hours
Subjective/Interval History
-
Date of Service: October 13, 2023
Tolerating diet
No fevers
Objective Data
-
Labs:
Laboratory Results
10/13/23
04:39
WBC 17.8 H
Hgb 10.5 L
Hct 31.6 L
Plt Count 391
Sodium 130 L
Potassium 4.2
Chloride 97 L
Carbon Dioxide 30
BUN 7 L
Creatinine 0.8
Glucose 108 H
Calcium 8.7
Vital Signs:
Vital Signs
Temp Pulse Resp BP Pulse Ox
97.9 F 90 18 138/79 97
10/13/23 07:30 10/13/23 07:30 10/13/23 07:30 10/13/23 07:30 10/13/23 07:30
I&O
10/12/23 10/13/23 10/14/23
06:59 06:59 06:59
Intake Total 2800 / 2800 3280 / 3280
Output Total 2600 / 2600 3215 / 3215
Balance 200 / 200 65 / 65
Review of Systems
-
Respiratory: Denies Trouble Breathing
Cardiac: Denies Chest Pain
Neuro: Denies Dizzy
Physical Exam
-
General: No Apparent Distress
HEENT: Moist Mucous Membranes
Respiratory: Clear to Auscultation
Cardiac: Regular Rhythm and S1/S2
GI: Soft, Nontender, Ostomy and Other (drain with purulent material)
Neuro: AO x 3
Psych: Calm
Data Reviewed
-
Labs: Labs Reviewed by me
--- NOTE | 2023-10-13 14:55 | W.PN.NEPH.PH ---
Today's Communication / Plan
-
add salt tablets BID
Assessment/Plan
-
Assessment:
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
s/p Exploratory laparotomy, lysis of adhesions, aorto-mesenteric bypass Tona thrombectomy, mesenteric arteriogram, patch angioplasty of aorto-mesenteric bypass 09/12
s/p 2nd look ex-lap 09/22 Haily ileostomy
GI bleed related to ischemic colitis
Hyponatremia due to SIADH (acute on chronic - baseline Na approx 131-134)
HTN
Moderate COPD/emphysema
CAD s/p prior hx of NSTEMI
Occlusive thrombus left arm
Plan
hyponatremia from SIADH & multifactorial
pt has difficulty to follow fluid restriction therefore patient will be at high risk for readmission
samsca given last evening with sodium up to 130
which will be challenge to maintain sodium as outpatient
we reviewed that without FR he is risk of acute hyponatremia and SZs
sodium decreased from 132 to 129 to 126 after liberation of FR
patient unwilling for me to restrict again
add salt tablets bid
encourage solute intake
abx per ID
monitor GI out put
continue to trend BMPs
d/w pt in detail
-
-
Date of Service: October 13, 2023
CC / HPI / ROS
-
Chief Complaint:
hyponatremia
History of Present Illness:
Na improved to 132 s/p samsca 10/07, 10/10. Na 130 after samsca
acute mesenteric ischemia c/b ischemic bowel and necrosis
no fever, BP stable
Review of Systems:
offers no abd pain durign visit
no cp or sob
feels thirsty and drinks liquids, having hard time to follow FR
Labs
-
Labs:
WBC 17.8 10^3/uL (4.8-10.8) H 10/13/23 04:39
RBC 3.52 10^6/uL (4.70-6.10) L 10/13/23 04:39
Hgb 10.5 g/dL (13.0-18.0) L 10/13/23 04:39
Hct 31.6 % (39.0-52.0) L 10/13/23 04:39
Plt Count 391 10^3/uL (130-400) 10/13/23 04:39
Sodium 130 mmol/L (135-145) L 10/13/23 04:39
Potassium 4.2 mmol/L (3.5-5.1) 10/13/23 04:39
Chloride 97 mmol/L (98-107) L 10/13/23 04:39
Carbon Dioxide 30 mmol/L (22-30) 10/13/23 04:39
BUN 7 mg/dl (9-20) L 10/13/23 04:39
Creatinine 0.8 mg/dL (0.7-1.3) 10/13/23 04:39
eGFR > 60.00 10/13/23 04:39
Glucose 108 mg/dl (70-99) H 10/13/23 04:39
Calcium 8.7 mg/dl (8.4-10.2) 10/13/23 04:39
Phosphorus 4.5 mg/dl (2.5-4.5) 09/29/23 05:09
Ybh-Q-Rmuhxnvcgmu Pept 1080 pg/ml 09/20/23 10:03
Albumin 2.9 g/dl (3.5-5.0) L 10/09/23 04:59
Physical Exam
-
Vital Signs:
Vital Signs
Temp Pulse Resp BP Pulse Ox
97.9 F 90 18 138/79 97
10/13/23 07:30 10/13/23 07:30 10/13/23 07:30 10/13/23 07:30 10/13/23 07:30
Cardiovascular:: Regular rate and rhythm
Respiratory:: Bilateral: CTA
Lung Excursion:: Normal
Abdomen:: Nontender and Soft
Bowel Sounds:: Normal
Extremity Edema:: None: Bilateral:
Chavez Catheter: No
[2023-10-13 15:30] VITALS: BP 132/76
[2023-10-13] MEDS: AMBIEN 5 MG PO (20:55)
[2023-10-13] MEDS: SODIUM CHLORIDE 0.5 GRAM PO (20:56)
[2023-10-13 23:00] VITALS: BP 127/80
[2023-10-14 04:48] LABS: Hematocrit 31.4 % (39.0-52.0); Hemoglobin 10.4 g/dL (13.0-18.0); Mean Corp Hgb Conc. 33.1 g/dL (33.0-37.0); Mean Corpuscular Volume 90.5 fL (80.0-94.0); Mean Platelet Volume 9.7 fL (7.4-10.4); Platelet Count 418 10^3/uL (130-400); Red Blood Cell Count 3.47 10^6/uL (4.70-6.10); Red Cell Dist. Width 17.3 % (11.5-14.5); White Blood Cell Count 19.3 10^3/uL (4.8-10.8)
[2023-10-14 05:26] LABS: Blood Urea Nitrogen 7 mg/dl (9-20); Calcium 8.6 mg/dl (8.4-10.2); Carbon Dioxide 31 mmol/L (22-30); Chloride 96 mmol/L (98-107); Estimated Creatinine Clearance 84 ml/min; Glucose 121 mg/dl (70-99); Potassium 4.1 mmol/L (3.5-5.1); Sodium 130 mmol/L (135-145); eGFR > 60.00
[2023-10-14 06:00] VITALS: BMI 18.7
[2023-10-14] MEDS: ZOSYN 100 IV ×4 (06:01→23:55)
[2023-10-14 07:30] VITALS: BP 127/82
[2023-10-14] MEDS: SODIUM CHLORIDE 0.5 GRAM PO ×2 (09:23→21:19)
[2023-10-14] MEDS: METAMUCIL, KONSYL 1 PACKET PO (09:23)
[2023-10-14] MEDS: CARDIZEM CD 120 MG PO (09:24)
[2023-10-14] MEDS: ELIQUIS 5 MG PO ×2 (09:24→21:19)
[2023-10-14] MEDS: ASPIR LOW (ENTERIC COATED) 81 MG PO (09:24)
[2023-10-14] MEDS: PROTONIX 40 MG PO (09:24)
[2023-10-14] MEDS: DIFLUCAN 200 MG PO (09:25)
[2023-10-14] MEDS: IMODIUM 2 MG PO ×4 (09:25→21:19)
--- NOTE | 2023-10-14 10:37 | W.PN.CRS1 ---
Today's Communication / Plan
-
Continue diet
Drains in place
Continue antibiotics
Assessment/Plan
-
Assessment: 58-year-old male with complex hospitalization initially presenting with SMA thrombus/occlusion
POD #30 ex lap, SMA graft thrombectomy, patch angioplasty
POD #22 ex lap subtotal colectomy
POD #20 planned relook laparotomy, creation end ileostomy
Plan:
1. On a regular diet with fiber supplement.
2. Antibiotics per ID. WBC 19.3, has been elevating. Trend.
3. Cardwell removed at bedside.
4. On Imodium to QID due to liquid stool output.
5. Continue drains. Will need eventual drain study.
6. Dispo: [facility]
Subjective Data
Procedure
09/21/2023- Exploratory laparotomy, subtotal colectomy (takedown of splenic flexure)
09/23/2023- 2nd look laparotomy and ileostomy (reopening of recent laparotomy)
Subjective Data
Date of Service: October 14, 2023
Patient states he has had no appetite lately. He feels achy. He had some nausea last night but it resolved. He is currently eating. His stoma has function.
Objective Data
-
Vital Signs
Temp Pulse Resp BP Pulse Ox
97.6 F 95 18 127/82 97
10/14/23 07:30 10/14/23 07:30 10/14/23 07:30 10/14/23 07:30 10/14/23 07:30
Intake & Output
10/13/23 10/14/23 10/15/23
06:59 06:59 06:59
Intake Total 3280 / 3280 960 / 960
Output Total 3215 / 3215 2175 / 2175
Balance 65 / 65 -1215 / -1215
Intake:
Oral fluids 2880 / 2880 960 / 960
IV piggybacks 400 / 400
Output:
Liquid stool amount 650 / 650 1300 / 1300
Ileostomy 650 / 650 1300 / 1300
Drain Output (Total) 50
Left Filiberto-Roche B 50
Right Filiberto-Roche A
Urine, Voided 2550 / 2550 825 / 825
Other:
Number of approximated MODERATE 1
amounts of urine
Lab Results
10/14/23 04:40
10/14/23 04:40
Physical Exam
-
General: No Acute Distress and AOx3
Abdomen: Soft, Non Distended, Non Tender and Other (Both CHAY drains with green murky output, ileostomy warm and pink with function)
Incision: Clear, Dry, Intact
--- NOTE | 2023-10-14 14:17 | W.PN.HOSP.TC ---
Today's Communication/Plan
-
CW ABX
CBC in am
Assessment / Plan
Assessment / Plan
Assessment:
Hyponatremia:
Fluctuating sodium
On fluid restriction patient
s/p Samsca
Nephrology following
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
- s/p Exploratory laparotomy, lysis of adhesions, aorto-mesenteric bypass Tona thrombectomy, mesenteric arteriogram, patch angioplasty of aorto-mesenteric bypass 09/12
- CT-A 09/13 showing patient bypass, concern for bowel ischemia (see below)
Ischemic bowel c/b necrotic bowel
- s/p ex-lap 09/20: Necrotic and perforated entire transverse colon, ischemic right colon and terminal ileum, ischemic left colon, ? ischemia of the proximal jejunum. 70 cm terminal colon with entire right colon, transverse colon and descending colon
removed.
- s/p 2nd look ex-lap 09/22 with Murky fluid throughout the abdomen, viable remaining small intestine with excellent Doppler signals, Haily ileostomy
-CT A/P 10/05 showed collection - s/p IR placement of drain .Eliquis resumed .
- ID following for suspected secondary peritonitis.
- Continue antimicrobials per ID
- Hematology input about hypercoagulable assessments noted -continue with anticoagulant and follow with office for work up.
Persistent neutrophilia-no changes to leukocytosis despite improving clinical improvement. I doubt still reactive to intra-abdominal infection. Patient on meropenem and micafungin. Currently on tapering steroids. Continue to follow and if
persistent despite coming off steroids look for myeloproliferative issues.
-fluctuating;no fevers
- If continued rise need further eval of collection
Ventilator dependent respiratory failure/acute hypoxic respiratory failure
- extubated 09/26
- Oxygenating well on nasal cannula
Post-op shock - multifactorial from sepsis/blood loss
- pressors weaned 09/26;Hemodynamics stable
- Echo normal EF
Delirium -post op -suspected TME. Off precedex.resolved
GI bleed related to ischemic colitis
Acute blood loss anemia
- monitor Hb -stable
- last unit given 09/27
- continue PPI
HTN - elevated BP noted .pt not a known HTN - Cardizem initiated .Uptitrate as needed. Blood pressure mostly under goal.
Moderate COPD/emphysema - Off of steroids taper for flare.
CAD s/p prior hx of NSTEMI - asymptomatic without chest pain. On aspirin at home.
Hyperbilirubinemia- mostly indirect elevation, possible Gilbert's + hematomas related. Continue to follow.
Abnormal LFTs - improved after TPN stopped
Hx of DVT status post apixaban 03/2021 post left knee surgery
Chronic back pain - recent steroid taper. Continued mid back pain which is a equally troubling. No sciatica . plain xrays show loss of height of superior endplate t12,l4 . Pt had pull while lifting something at home but no fall or trauma. continue
symptomatic tx
Hyperglycemia
No hx of DM
- HbA1C 5.8, close follow-up as an outpatient
- was on high doses of insulin due to combination of steroid use and TPN.
- Now off of KATERINE insulin SSI as pt off of TPN
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
Nutrition -on oral diet
Occlusive thrombus left arm - throughout the cephalic vein in the forearm, antecubital fossa, and distal aspect of the upper arm
- continue anticoagulation, on Eliquis
DVT ppx: Eliquis
Code: Full
CW PT tx
DW CRS and ID - follow WBC prior to dc plans
Anticipated Discharge: > 48 hours
Subjective/Interval History
-
Date of Service: October 14, 2023
Early Branch bit nauseous today which resolved now.
Objective Data
-
Labs:
Laboratory Results
10/14/23
04:40
WBC 19.3 H
Hgb 10.4 L
Hct 31.4 L
Plt Count 418 H
Sodium 130 L
Potassium 4.1
Chloride 96 L
Carbon Dioxide 31 H
BUN 7 L
Creatinine 0.8
Glucose 121 H
Calcium 8.6
Vital Signs:
Vital Signs
Temp Pulse Resp BP Pulse Ox
97.6 F 95 18 127/82 97
10/14/23 07:30 10/14/23 07:30 10/14/23 07:30 10/14/23 07:30 10/14/23 08:00
I&O
10/13/23 10/14/23 10/15/23
06:59 06:59 06:59
Intake Total 3280 / 3280 960 / 960
Output Total 3215 / 3215 2175 / 2175
Balance 65 / 65 -1215 / -1215
Review of Systems
-
Constitutional: Denies Fever
Respiratory: Denies Trouble Breathing
Cardiac: Denies Chest Pain
Neuro: Denies Dizzy or Headache
Physical Exam
-
General: No Apparent Distress
HEENT: Moist Mucous Membranes
Respiratory: Clear to Auscultation
Cardiac: Regular Rhythm and S1/S2
GI: Soft
Neuro: AO x 3
Data Reviewed
-
Labs: Labs Reviewed by me
--- NOTE | 2023-10-14 14:23 | W.PN.NEPH.PH ---
Today's Communication / Plan
-
observe on FR and salt tablets
Assessment/Plan
-
Assessment:
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
s/p Exploratory laparotomy, lysis of adhesions, aorto-mesenteric bypass Tona thrombectomy, mesenteric arteriogram, patch angioplasty of aorto-mesenteric bypass 09/12
s/p 2nd look ex-lap 09/22 Haily ileostomy
GI bleed related to ischemic colitis
Hyponatremia due to SIADH (acute on chronic - baseline Na approx 131-134)
HTN
Moderate COPD/emphysema
CAD s/p prior hx of NSTEMI
Occlusive thrombus left arm
Plan
hyponatremia from SIADH & multifactorial
pt has difficulty to follow fluid restriction therefore patient will be at high risk for readmission which will be challenge to maintain sodium as outpatient
samsca given 2 nights prior with sodium up to 130
we reviewed that without FR he is risk of acute hyponatremia and SZs
sodium had decreased from 132 to 129 to 126 after liberation of FR
patient unwilling for me to restrict again
added salt tablets bid on 10/13/23
encourage solute intake
abx per ID
monitor GI out put
continue to trend BMPs
d/w pt in detail
-
-
Date of Service: October 14, 2023
CC / HPI / ROS
-
Chief Complaint:
hyponatremia
History of Present Illness:
Na improved to 132 s/p samsca 10/07, 10/10. Na 130 after samsca on 10/11
acute mesenteric ischemia c/b ischemic bowel and necrosis
no fever, BP stable
bp stable on diltiazem
Review of Systems:
no cp or sob
feels thirsty and drinks liquids, having hard time to follow FR
Labs
-
Labs:
WBC 19.3 10^3/uL (4.8-10.8) H 10/14/23 04:40
RBC 3.47 10^6/uL (4.70-6.10) L 10/14/23 04:40
Hgb 10.4 g/dL (13.0-18.0) L 10/14/23 04:40
Hct 31.4 % (39.0-52.0) L 10/14/23 04:40
Plt Count 418 10^3/uL (130-400) H 10/14/23 04:40
Sodium 130 mmol/L (135-145) L 10/14/23 04:40
Potassium 4.1 mmol/L (3.5-5.1) 10/14/23 04:40
Chloride 96 mmol/L (98-107) L 10/14/23 04:40
Carbon Dioxide 31 mmol/L (22-30) H 10/14/23 04:40
BUN 7 mg/dl (9-20) L 10/14/23 04:40
Creatinine 0.8 mg/dL (0.7-1.3) 10/14/23 04:40
eGFR > 60.00 10/14/23 04:40
Glucose 121 mg/dl (70-99) H 10/14/23 04:40
Calcium 8.6 mg/dl (8.4-10.2) 10/14/23 04:40
Phosphorus 4.5 mg/dl (2.5-4.5) 09/29/23 05:09
Tye-A-Yjeilcccffv Pept 1080 pg/ml 09/20/23 10:03
Albumin 2.9 g/dl (3.5-5.0) L 10/09/23 04:59
Physical Exam
-
Vital Signs:
Vital Signs
Temp Pulse Resp BP Pulse Ox
97.6 F 95 18 127/82 97
10/14/23 07:30 10/14/23 07:30 10/14/23 07:30 10/14/23 07:30 10/14/23 08:00
Cardiovascular:: Regular rate and rhythm
Respiratory:: Bilateral: CTA
Lung Excursion:: Normal
Abdomen:: Nontender and Soft
Bowel Sounds:: Normal
Extremity Edema:: None: Bilateral:
Chavez Catheter: No
[2023-10-14 15:00] VITALS: BP 134/78
--- NOTE | 2023-10-14 16:17 | CM ---
Continues with ostomy teaching, wound care, anbx.
PT/OT continues to recommend acute rehab.
Patient will require insurance auth once stable.
Plan: [facility] when medically stable.
--- NOTE | 2023-10-14 17:07 | W.PN.ID1 ---
Date of Service
Date of Service: October 14, 2023
Today's Communication
continue fluconazole and zosyn
Assessment / Plan
Sujatha peritonitis,
Leukocytosis
- Improving
Total SMA graft occlusion
- s/p thrombectomy (performed through prior graft) & patch repair
Acute mesenteric ischemia - resolved
Transaminitis - resolving
Hx medication noncompliance
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
Recommendations:
- drain replaced into collection
- drain culture: Pseudomonas
- continue zosyn,
- continue fluconazole, follow ostomy output - high oral absorption
- QTc acceptable
- complete splenic infarction
- patient will need post splenectomy vaccines as an outpatient; will arrange these through my office
- follow clinically
plan for chronic suppression if feasible
����������������������������������������������������������
Chief Complaint
-: Leukocytosis and Other (secondary peritonitis)
Subjective / Review of Systems
afebrile
bp stable
tolerating current therapies
some increased abdominal pain
drain output remains feculent
Vital Signs / Physical Exam
Vital Signs
Vital Signs
Temp Pulse Resp BP Pulse Ox
98.8 F 79 18 134/78 99
10/14/23 15:00 10/14/23 15:00 10/14/23 15:00 10/14/23 15:00 10/14/23 15:00
Physical Exam
Constitutional: No Acute Distress
Cardiovascular: Regular Rate and S1/S2; Negative Murmur or Rub
Pulmonary: Clear and Symmetric; Negative Wheezes or Rales
Gastrointestinal: Soft, Tender, Non Distended and Normal Bowel Sounds
Skin: Warm and Dry; Negative Rash or Jaundice
Lines: Other (drain output remains feculent)
Objective Data
Lab Data
Lab Results
10/14/23 04:40
10/14/23 04:40
ESR 38 mm/hour (0-20) H 10/09/23 04:59
PT 17.8 Sec (11.4-14.6) H 09/13/23 03:17
INR 1.49 09/13/23 03:17
APTT Cancelled 10/02/23 12:30
Estimated Creat Clear 84 ml/min 10/14/23 04:40
Lactic Acid 1.5 mmol/L (0.7-2.0) 09/21/23 17:38
Total Bilirubin 1.2 mg/dl (0.2-1.3) 10/09/23 04:59
AST 40 U/L (17-59) 10/09/23 04:59
ALT 48 U/L (0-50) 10/09/23 04:59
Alkaline Phosphatase 177 U/L (38-126) H 10/09/23 04:59
C-Reactive Protein 161.70 mg/L (0.0-10.00) H 10/09/23 04:59
Amylase 252 U/L (30-110) H 10/07/23 04:25
Most recent labs reviewed.
Micro Results:
10/08/23 13:12 Wound Culture - Final
Abscess Pseudomonas aeruginosa
Gram Stain - Final
10/08/23 14:48 Wound Culture - Final
Abscess Pseudomonas aeruginosa
Gram Stain - Final
09/23/23 16:45 Body Fluid Culture - Final
Fluid Sujatha albicans
Gram Stain - Final
09/23/23 16:45 Anaerobic Culture - Final
Abdomen NO ANAEROBES ISOLATED
09/21/23 15:00 Wound Culture - Final
Abdomen Sujatha albicans
Gram Stain - Final
09/21/23 15:00 Anaerobic Culture - Final
Peritoneal Fluid NO ANAEROBES ISOLATED
09/20/23 10:03 Blood Culture - Final
Blood/Venous No Growth - Final Report
09/20/23 10:11 Blood Culture - Final
Blood/Venous No Growth - Final Report
09/12/23 18:05 Blood Culture - Final
Blood/Venous No Growth - Final Report
09/12/23 18:05 Influenza Types A & B (ALAN) - Final
Nasal Swab Negative for Influenza A & B, NAAT
Negative results must be combined with clinical observations
and patient history.
Nucleic Acid Amplification test (NAAT)performed on the
[employer] Q platform.
Imaging:
09/26/2023 CXR (portable): Persistent bibasilar atelectasis and pleural fluid. Little change from previous exams.
Care Review
Plan reviewed with: Physician (Dr Damon vo)
[2023-10-14] MEDS: AMBIEN 5 MG PO (21:18)
[2023-10-14] MEDS: MORPHINE SULFATE 2 MG IV (21:24)
[2023-10-14 22:30] VITALS: BP 130/78
[2023-10-15 00:06] VITALS: BP 130/78
--- NOTE | 2023-10-15 05:25 | DOWNTIME ---
There was a [employer] Downtime on 10/15/2023 from 0100 to 10/15/2023 at 0439. Downtime documentation of patient's care, including medication administrations, has been reconciled in the electronic record per guidelines. Refer to the
patient's paper chart under the miscellaneous tab to see printed paper medication records and downtime forms.
[2023-10-15 05:44] LABS: Hematocrit 28.4 % (39.0-52.0); Hemoglobin 9.4 g/dL (13.0-18.0); Mean Corp Hgb Conc. 33.1 g/dL (33.0-37.0); Mean Corpuscular Hgb 29.8 pg (27.0-31.0); Mean Corpuscular Volume 90.2 fL (80.0-94.0); Mean Platelet Volume 9.7 fL (7.4-10.4); Platelet Count 404 10^3/uL (130-400); Red Blood Cell Count 3.15 10^6/uL (4.70-6.10); Red Cell Dist. Width 17.2 % (11.5-14.5); White Blood Cell Count 17.3 10^3/uL (4.8-10.8)
[2023-10-15 06:00] VITALS: BMI 18.9
[2023-10-15 06:12] LABS: Blood Urea Nitrogen 7 mg/dl (9-20); Calcium 8.4 mg/dl (8.4-10.2); Carbon Dioxide 32 mmol/L (22-30); Chloride 93 mmol/L (98-107); Estimated Creatinine Clearance 84 ml/min; Glucose 100 mg/dl (70-99); Potassium 3.9 mmol/L (3.5-5.1); Sodium 126 mmol/L (135-145); eGFR > 60.00
[2023-10-15] MEDS: ZOSYN 100 IV ×4 (06:16→23:01)
[2023-10-15 07:30] VITALS: BP 106/72
[2023-10-15] MEDS: SODIUM CHLORIDE 0.5 GRAM PO (08:27)
[2023-10-15] MEDS: DIFLUCAN 200 MG PO (08:27)
[2023-10-15] MEDS: PROTONIX 40 MG PO (08:27)
[2023-10-15] MEDS: IMODIUM 2 MG PO ×4 (08:27→21:04)
[2023-10-15] MEDS: ELIQUIS 5 MG PO ×2 (08:27→21:03)
[2023-10-15] MEDS: ASPIR LOW (ENTERIC COATED) 81 MG PO (08:27)
[2023-10-15] MEDS: CARDIZEM CD 120 MG PO (08:28)
[2023-10-15] MEDS: METAMUCIL, KONSYL 1 PACKET PO (08:29)
--- NOTE | 2023-10-15 09:04 | PN.CDI ---
CDI
- -
CDI:
Physician Documentation Request
Admit Date: 09/12/23 20:39
Dear Doctor Damon,
Please review the following and provide your response in the progress notes.
Clinical Indicators:
Pt admitted with mesenteric ischemia /Infected prosthetic graft
Documented per nutrition note 10/13, 'Weight-133lb 11.2oz (4-16, BMI 18.6 low norm wt/ht), 133 lbs 4 oz (4-12), 139 lbs (4-9), 144 lbs 2 oz (4-8), 166 lbs 3.657 oz (3-15); Significant 33lb 24.8% wt loss during 1month admission influenced by fluid
restriction, limited PO intakes. Pt meets criteria for severe protein calorie malnutrition of acute illness with </=50% est energy needs >/=5days, moderate loss of subcutaneous fat (orbital, tricep), moderate loss muscle (clavicle, pectoralis). RD
encouraged small, frequent feedings as best tolerated....'
Based on the information, which of the following most accurately represents the patient's nutritional status?
Severe Protein Calorie Malnutrition
Moderate Protein Calorie Malnutrition
Other (please specify)
[place]m Criteria (ACP Hospitalist 2017)
2 or more criteria must be present for either
non severe or severe malnutrition
Note that the criteria differs related to the
presence of an acute or chronic illness
Acute Illness Chronic Illness
Energy Intake Non Severe: <75% for >7 days Non Severe: <75% for >1 month
Severe: <50% for >5 days Severe: <75% for >1 month
Weight Loss Non Severe: 1-2% over 1 week Non Severe: 5% over 1 month
5% over 1 month 7.5% over 3 months
7.5% over 3 months 10% over 6 months
1 year N/A 20% over 1 year
Severe: >2% over 1 week Severe: >5% over 1 month
>5% over 1 month >7.5% over 3 months
>7.5% over 3 months >10% over 6 months
1 year N/A >20% over 1 year
Body Fat Non Severe: Mild Decrease Non Severe: Mild Loss
Severe: Moderate Decrease Severe: Severe Loss
Muscle Mass Non Severe: Mild Decrease Non Severe: Mild Loss
Severe: Moderate Decrease Severe: Severe Loss
Fluid Accumulation Non Severe: Mild Accumulation Non Severe: Mild Accumulation
Severe: Moderate to severe Severe: Moderate to severe
accumulation accumulation
Reduced Woodworker Helper Strength Non Severe: N/A Non Severe: N/A
Severe: Measurably reduced Severe: Measurably reduced
Use of terms such as suspected, likely, concern for, or probable (associated with a specific diagnosis that is being evaluated, monitored, or treated as if it exists) are acceptable and can be coded in the inpatient setting, when documented at the
time of discharge.
Thank you,
Lavern Narayan RN
CDI Specialist
[facility]
Please use your independent medical judgment in providing your response.
[2023-10-15] MEDS: SAMSCA 7.5 MG PO (10:02)
--- NOTE | 2023-10-15 10:30 | WOUNDNOTE ---
WON RN NOTE: Appliance changed with assistance from patient. Had him empty pouch on his own prior to changing appliance. Stoma is pink and budded, peristomal skin slightly red distally and lateral edge. Applied stoma powder then skin prep. Teaching
done regarding how to apply and patient cut out wafer. Encouraged patient to change pouch q 3-4 days, tips given on how to best change appliance and empty. Patient much more willing to learn and participate with his own care. States he just wants to
get to rehab so that he can get stronger and go home. Support and encouragement given, aware can contact ostomy nurse for any concerns post discharge. He states that his has been helping him also. Called [facility] for additional supplies, nurse Thor
made aware and will bring to .
--- NOTE | 2023-10-15 10:36 | W.PN.HOSP.TC ---
Today's Communication/Plan
-
CW ABX
Assessment / Plan
Assessment / Plan
Assessment:
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
- s/p Exploratory laparotomy, lysis of adhesions, aorto-mesenteric bypass Tona thrombectomy, mesenteric arteriogram, patch angioplasty of aorto-mesenteric bypass 09/12
- CT-A 09/13 showing patient bypass, concern for bowel ischemia (see below)
Ischemic bowel c/b necrotic bowel
- s/p ex-lap 09/20: Necrotic and perforated entire transverse colon, ischemic right colon and terminal ileum, ischemic left colon, ? ischemia of the proximal jejunum. 70 cm terminal colon with entire right colon, transverse colon and descending colon
removed.
- s/p 2nd look ex-lap 09/22 with Murky fluid throughout the abdomen, viable remaining small intestine with excellent Doppler signals, Haily ileostomy
-CT A/P 10/05 showed collection - s/p IR placement of drain .Eliquis resumed .
- ID following for secondary peritonitis.
- Continue antimicrobials per ID
- Hematology input about hypercoagulable assessments noted -continue with anticoagulant and follow with office for work up.
Persistent neutrophilia-no changes to leukocytosis despite improving clinical improvement. I doubt still reactive to intra-abdominal infection. Patient on meropenem and micafungin. Currently on tapering steroids. Continue to follow and if
persistent despite coming off steroids look for myeloproliferative issues.
-fluctuating;no fevers
- Better today -continue to monitor
Hyponatremia:
Fluctuating sodium
On fluid restriction and salt tablets
s/p Samsca
Nephrology following
Ventilator dependent respiratory failure/acute hypoxic respiratory failure
- extubated 09/26
- Oxygenating well on nasal cannula
Post-op shock - multifactorial from sepsis/blood loss
- pressors weaned 09/26;Hemodynamics stable
- Echo normal EF
Delirium -post op -suspected TME. Off precedex.resolved
GI bleed related to ischemic colitis
Acute blood loss anemia
- monitor Hb -stable
- last unit given 09/27
- continue PPI
HTN - elevated BP noted .pt not a known HTN - Cardizem initiated .Uptitrate as needed. Blood pressure mostly under goal.
Moderate COPD/emphysema - Off of steroids taper for flare.
CAD s/p prior hx of NSTEMI - asymptomatic without chest pain. On aspirin at home.
Hyperbilirubinemia- mostly indirect elevation, possible Gilbert's + hematomas related. Continue to follow.
Abnormal LFTs - improved after TPN stopped
Hx of DVT status post apixaban 03/2021 post left knee surgery
Chronic back pain - recent steroid taper. Continued mid back pain which is a equally troubling. No sciatica . plain xrays show loss of height of superior endplate t12,l4 . Pt had pull while lifting something at home but no fall or trauma. continue
symptomatic tx
Hyperglycemia
No hx of DM
- HbA1C 5.8, close follow-up as an outpatient
- was on high doses of insulin due to combination of steroid use and TPN.
- Now off of KATERINE insulin SSI as pt off of TPN
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
Nutrition -on oral diet
Occlusive thrombus left arm - throughout the cephalic vein in the forearm, antecubital fossa, and distal aspect of the upper arm
- continue anticoagulation, on Eliquis
DVT ppx: Eliquis
Code: Full
CW PT tx
If continued improvement in WBC will start DC plan to acute rehab
Anticipated Discharge: 24 - 48 hours
Subjective/Interval History
-
Date of Service: October 15, 2023
No nausea. Tolerating diet.
Objective Data
-
Labs:
Laboratory Results
10/15/23
05:36
WBC 17.3 H
Hgb 9.4 L
Hct 28.4 L
Plt Count 404 H
Sodium 126 L
Potassium 3.9
Chloride 93 L
Carbon Dioxide 32 H
BUN 7 L
Creatinine 0.8
Glucose 100 H
Calcium 8.4
Vital Signs:
Vital Signs
Temp Pulse Resp BP Pulse Ox
98.1 F 83 18 106/72 96
10/15/23 07:30 10/15/23 07:30 10/15/23 07:30 10/15/23 07:30 10/15/23 07:30
I&O
10/14/23 10/15/23 10/16/23
06:59 06:59 06:59
Intake Total 960 / 960 1120 / 1120
Output Total 2175 / 2175 350 / 350
Balance -1215 / -1215 770 / 770
Review of Systems
-
Constitutional: Denies Fever
Respiratory: Denies Trouble Breathing
Cardiac: Denies Chest Pain
Neuro: Denies Dizzy
Physical Exam
-
General: No Apparent Distress
HEENT: Moist Mucous Membranes
Respiratory: Clear to Auscultation
Cardiac: Regular Rhythm and S1/S2
GI: Soft, Nontender and Ostomy
Neuro: AO x 3
Data Reviewed
-
Labs: Labs Reviewed by me
--- NOTE | 2023-10-15 14:18 | W.PN.NEPH.PH ---
Today's Communication / Plan
-
- fluid restriction, samsca, increase dose of salt tabs
Assessment/Plan
-
Assessment:
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
s/p Exploratory laparotomy, lysis of adhesions, aorto-mesenteric bypass Tona thrombectomy, mesenteric arteriogram, patch angioplasty of aorto-mesenteric bypass 09/12
s/p 2nd look ex-lap 09/22 Haily ileostomy
GI bleed related to ischemic colitis
Hyponatremia due to SIADH (acute on chronic - baseline Na approx 131-134)
HTN
Moderate COPD/emphysema
CAD s/p prior hx of NSTEMI
Occlusive thrombus left arm
Plan
hyponatremia from SIADH & multifactorial
pt has difficulty to follow fluid restriction therefore patient will be at high risk for readmission which will be challenge to maintain sodium as outpatient
samsca given 10/11 last. ordered another dose today in the setting of falling Na
we reviewed that without FR he is risk of acute hyponatremia and SZs. patient is amenable to me restricting his fluids today
increased salt tabs to 1mg BID
encourage solute intake
abx per ID
monitor GI out put
continue to trend BMPs
d/w pt in detail
-
-
Date of Service: October 15, 2023
CC / HPI / ROS
-
Chief Complaint:
hyponatremia
History of Present Illness:
Na improved to 132 s/p samsca 10/07, 10/10. Na 130 after samsca on 10/11, decreased again on 10/14 to 126
acute mesenteric ischemia c/b ischemic bowel and necrosis
no fever, BP stable
bp stable on diltiazem
Review of Systems:
no cp or sob
feels thirsty and drinks liquids, having hard time to follow FR but amenable to trying again
Labs
-
Labs:
WBC 17.3 10^3/uL (4.8-10.8) H 10/15/23 05:36
RBC 3.15 10^6/uL (4.70-6.10) L 10/15/23 05:36
Hgb 9.4 g/dL (13.0-18.0) L 10/15/23 05:36
Hct 28.4 % (39.0-52.0) L 10/15/23 05:36
Plt Count 404 10^3/uL (130-400) H 10/15/23 05:36
Sodium 126 mmol/L (135-145) L 10/15/23 05:36
Potassium 3.9 mmol/L (3.5-5.1) 10/15/23 05:36
Chloride 93 mmol/L (98-107) L 10/15/23 05:36
Carbon Dioxide 32 mmol/L (22-30) H 10/15/23 05:36
BUN 7 mg/dl (9-20) L 10/15/23 05:36
Creatinine 0.8 mg/dL (0.7-1.3) 10/15/23 05:36
eGFR > 60.00 10/15/23 05:36
Glucose 100 mg/dl (70-99) H 10/15/23 05:36
Calcium 8.4 mg/dl (8.4-10.2) 10/15/23 05:36
Phosphorus 4.5 mg/dl (2.5-4.5) 09/29/23 05:09
Nls-Q-Wkhuovvdiyr Pept 1080 pg/ml 09/20/23 10:03
Albumin 2.9 g/dl (3.5-5.0) L 10/09/23 04:59
Physical Exam
-
Vital Signs:
Vital Signs
Temp Pulse Resp BP Pulse Ox
98.1 F 83 18 106/72 96
10/15/23 07:30 04/17/24 07:30 10/15/23 07:30 10/15/23 07:30 10/15/23 08:00
Cardiovascular:: Regular rate and rhythm
Respiratory:: Bilateral: Coarse
Lung Excursion:: Normal
Abdomen:: Distended, Soft and Tender
Bowel Sounds:: Normal
Extremity Edema:: None: Bilateral:
Chavez Catheter: No
[2023-10-15 15:30] VITALS: BP 135/76
--- NOTE | 2023-10-15 16:03 | CM ---
Cm continues to follow for d/c needs.
Plan: [facility] when stable.
--- NOTE | 2023-10-15 16:44 | W.PN.ID1 ---
Date of Service
Date of Service: October 15, 2023
Today's Communication
- continue zosyn,
- continue fluconazole
Assessment / Plan
Sujatha peritonitis,
Leukocytosis
- Improving
Total SMA graft occlusion
- s/p thrombectomy (performed through prior graft) & patch repair
Acute mesenteric ischemia - resolved
Transaminitis - resolving
Hx medication noncompliance
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
Recommendations:
- continue zosyn,
- continue fluconazole
- complete splenic infarction
- patient will need post splenectomy vaccines as an outpatient; will arrange these through my office
- follow clinically
plan for chronic suppression if feasible
����������������������������������������������������������
Chief Complaint
-: Leukocytosis and Other (secondary peritonitis)
Subjective / Review of Systems
afebrile
bp stable
improving leukocytosis
cr stable
Vital Signs / Physical Exam
Vital Signs
Vital Signs
Temp Pulse Resp BP Pulse Ox
98.9 F 83 18 135/76 98
10/15/23 15:30 10/15/23 15:30 10/15/23 15:30 10/15/23 15:30 10/15/23 15:30
Physical Exam
Constitutional: No Acute Distress
Cardiovascular: Regular Rate and S1/S2; Negative Murmur or Rub
Pulmonary: Clear and Symmetric; Negative Wheezes or Rales
Gastrointestinal: Soft, Non Tender, Non Distended and Normal Bowel Sounds
Skin: Warm and Dry; Negative Rash or Jaundice
Lines: Other (drain output remains feculent)
Objective Data
Lab Data
Lab Results
10/15/23 05:36
10/15/23 05:36
ESR 38 mm/hour (0-20) H 10/09/23 04:59
PT 17.8 Sec (11.4-14.6) H 09/13/23 03:17
INR 1.49 09/13/23 03:17
APTT Cancelled 10/02/23 12:30
Estimated Creat Clear 84 ml/min 10/15/23 05:36
Lactic Acid 1.5 mmol/L (0.7-2.0) 09/21/23 17:38
Total Bilirubin 1.2 mg/dl (0.2-1.3) 10/09/23 04:59
AST 40 U/L (17-59) 10/09/23 04:59
ALT 48 U/L (0-50) 10/09/23 04:59
Alkaline Phosphatase 177 U/L (38-126) H 10/09/23 04:59
C-Reactive Protein 161.70 mg/L (0.0-10.00) H 10/09/23 04:59
Amylase 252 U/L (30-110) H 10/07/23 04:25
Most recent labs reviewed.
Micro Results:
10/08/23 13:12 Wound Culture - Final
Abscess Pseudomonas aeruginosa
Gram Stain - Final
10/08/23 14:48 Wound Culture - Final
Abscess Pseudomonas aeruginosa
Gram Stain - Final
09/23/23 16:45 Body Fluid Culture - Final
Fluid Sujatha albicans
Gram Stain - Final
09/23/23 16:45 Anaerobic Culture - Final
Abdomen NO ANAEROBES ISOLATED
09/21/23 15:00 Wound Culture - Final
Abdomen Sujatha albicans
Gram Stain - Final
09/21/23 15:00 Anaerobic Culture - Final
Peritoneal Fluid NO ANAEROBES ISOLATED
09/20/23 10:03 Blood Culture - Final
Blood/Venous No Growth - Final Report
09/20/23 10:11 Blood Culture - Final
Blood/Venous No Growth - Final Report
09/12/23 18:05 Blood Culture - Final
Blood/Venous No Growth - Final Report
09/12/23 18:05 Influenza Types A & B (ALAN) - Final
Nasal Swab Negative for Influenza A & B, NAAT
Negative results must be combined with clinical observations
and patient history.
Nucleic Acid Amplification test (NAAT)performed on the
[employer] platform.
Imaging:
09/26/2023 CXR (portable): Persistent bibasilar atelectasis and pleural fluid. Little change from previous exams.
[2023-10-15] MEDS: SODIUM CHLORIDE 1 GRAM PO (21:04)
[2023-10-15] MEDS: AMBIEN 5 MG PO (21:04)
[2023-10-15] MEDS: MORPHINE SULFATE 2 MG IV (21:05)
[2023-10-15 23:27] VITALS: BP 130/73
[2023-10-16] MEDS: ZOSYN 100 IV ×2 (05:01→12:36)
[2023-10-16 05:38] VITALS: BMI 18.6
[2023-10-16 06:51] LABS: Hematocrit 30.5 % (39.0-52.0); Mean Corp Hgb Conc. 32.8 g/dL (33.0-37.0); Mean Corpuscular Hgb 29.6 pg (27.0-31.0); Mean Corpuscular Volume 90.2 fL (80.0-94.0); Mean Platelet Volume 9.6 fL (7.4-10.4); Platelet Count 472 10^3/uL (130-400); Red Blood Cell Count 3.38 10^6/uL (4.70-6.10); Red Cell Dist. Width 17.2 % (11.5-14.5); White Blood Cell Count 12.3 10^3/uL (4.8-10.8)
[2023-10-16 07:00] VITALS: BP 137/90
--- NOTE | 2023-10-16 08:21 | W.PN.CRS1 ---
Today's Communication / Plan
-
continue regular diet
IV antibiotics per ID
okay for d/c from our perspective when medically cleared - will need f/u in the office with Dr. Andrews in 2 weeks and a drain study will be ordered as an outpatient
Assessment/Plan
-
Assessment: 58-year-old male with complex hospitalization initially presenting with SMA thrombus/occlusion
POD #32 ex lap, SMA graft thrombectomy, patch angioplasty
POD #24 ex lap subtotal colectomy
POD #22 planned relook laparotomy, creation end ileostomy
Plan:
1. On a regular diet with fiber supplement. Continue.
2. Antibiotics per ID. WBC 12.3, trending down.
3. Stoma care per wound RN.
4. On Imodium to QID due to liquid stool output.
5. Continue drains. Will need eventual drain study as an outpatient.
6. Hyponatremia work up per nephrology.
7. Dispo: [facility]. Okay for discharge from our standpoint when medically cleared. He will need a follow up appointment in 2 weeks in the office with Dr. Andrews. Trend drain output daily. If low amounts, he can call the office to order a drain
study. Otherwise, one will be ordered during his appointment with Dr. Andrews. Discussed with the patient.
Subjective Data
Procedure
09/21/2023- Exploratory laparotomy, subtotal colectomy (takedown of splenic flexure)
09/23/2023- 2nd look laparotomy and ileostomy (reopening of recent laparotomy)
Subjective Data
Date of Service: October 16, 2023
Patient states he had some nausea which resolved. He is eating a diet without difficulty. He has virtually no pain. He states he did not get a good sleep last night.
Objective Data
-
Vital Signs
Temp Pulse Resp BP Pulse Ox
97.2 F 84 18 130/73 96
10/15/23 23:27 10/15/23 23:27 10/15/23 23:27 10/15/23 23:27 10/15/23 23:27
Intake & Output
10/15/23 10/16/23 10/17/23
06:59 06:59 06:59
Intake Total 1120 / 1120 1600 / 1600
Output Total 350 / 350 3140 / 3140
Balance 770 / 770 -1540 / -1540
Intake:
Oral fluids 720 / 720 1200 / 1200
IV fluids (Total) 200 / 200
IV piggybacks 400 / 400 200 / 200
Output:
Liquid stool amount 850 / 850
Ileostomy 850 / 850
Drain Output (Total) 65 / 65
Left Filiberto-Roche B 15 / 15
Right Filiberto-Roche A 50 / 50
Urine, Voided 350 / 350 2225 / 2225
Lab Results
10/16/23 06:26
10/15/23 05:36
Physical Exam
-
General: No Acute Distress and AOx3
Abdomen: Soft, Non Distended, Non Tender and Other (ileostomy warm and pink with output)
Skin: Warm and Dry
[2023-10-16] MEDS: CARDIZEM CD 120 MG PO (09:07)
[2023-10-16] MEDS: METAMUCIL, KONSYL 1 PACKET PO (09:07)
[2023-10-16] MEDS: IMODIUM 2 MG PO ×4 (09:07→21:11)
[2023-10-16] MEDS: ASPIR LOW (ENTERIC COATED) 81 MG PO (09:08)
[2023-10-16] MEDS: SODIUM CHLORIDE 1 GRAM PO ×2 (09:08→19:55)
[2023-10-16] MEDS: ELIQUIS 5 MG PO ×2 (09:08→19:55)
[2023-10-16] MEDS: DIFLUCAN 200 MG PO (09:08)
[2023-10-16] MEDS: PROTONIX 40 MG PO (09:08)
[2023-10-16 09:31] LABS: Blood Urea Nitrogen 4 mg/dl (9-20); Calcium 8.6 mg/dl (8.4-10.2); Carbon Dioxide 28 mmol/L (22-30); Chloride 93 mmol/L (98-107); Estimated Creatinine Clearance 84 ml/min; Glucose 194 mg/dl (70-99); Sodium 129 mmol/L (135-145); eGFR > 60.00
--- NOTE | 2023-10-16 10:10 | W.PN.HOSP.TC ---
Today's Communication/Plan
-
DC planning
Assessment / Plan
Assessment / Plan
Assessment:
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
- s/p Exploratory laparotomy, lysis of adhesions, aorto-mesenteric bypass Tona thrombectomy, mesenteric arteriogram, patch angioplasty of aorto-mesenteric bypass 09/12
- CT-A 09/13 showing patient bypass, concern for bowel ischemia (see below)
Ischemic bowel c/b necrotic bowel
- s/p ex-lap 09/20: Necrotic and perforated entire transverse colon, ischemic right colon and terminal ileum, ischemic left colon, ? ischemia of the proximal jejunum. 70 cm terminal colon with entire right colon, transverse colon and descending colon
removed.
- s/p 2nd look ex-lap 09/22 with Murky fluid throughout the abdomen, viable remaining small intestine with excellent Doppler signals, Haily ileostomy
-CT A/P 10/05 showed collection - s/p IR placement of drain .
- ID following for secondary peritonitis.
- Continue antimicrobials per ID; improving WBC.
- Hematology input about hypercoagulable assessments noted -continue with anticoagulant and follow with office for work up.
Hyponatremia:
Fluctuating sodium
On fluid restriction and salt tablets
s/p Samsca
Nephrology following
Ventilator dependent respiratory failure/acute hypoxic respiratory failure
- extubated 09/26
- Oxygenating well on nasal cannula
Post-op shock - multifactorial from sepsis/blood loss
- pressors weaned 09/26;Hemodynamics stable
- Echo normal EF
Delirium -post op -suspected TME. Off precedex.resolved
GI bleed related to ischemic colitis
Acute blood loss anemia
- monitor Hb -stable
- last unit given 09/27
- continue PPI
HTN - elevated BP noted .pt not a known HTN - Cardizem initiated .Uptitrate as needed. Blood pressure mostly under goal.
Moderate COPD/emphysema - Off of steroids taper for flare.
CAD s/p prior hx of NSTEMI - asymptomatic without chest pain. On aspirin at home.
Hyperbilirubinemia- mostly indirect elevation, possible Gilbert's + hematomas related. Continue to follow.
Abnormal LFTs - improved after TPN stopped
Hx of DVT status post apixaban 03/2021 post left knee surgery
Chronic back pain - recent steroid taper. Continued mid back pain which is a equally troubling. No sciatica . plain xrays show loss of height of superior endplate t12,l4 . Pt had pull while lifting something at home but no fall or trauma. continue
symptomatic tx
Hyperglycemia
No hx of DM
- HbA1C 5.8, close follow-up as an outpatient
- was on high doses of insulin due to combination of steroid use and TPN.
- Now off of KATERINE insulin SSI as pt off of TPN
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
Nutrition -on oral diet
Occlusive thrombus left arm - throughout the cephalic vein in the forearm, antecubital fossa, and distal aspect of the upper arm
- continue anticoagulation, on Eliquis
DVT ppx: Eliquis
Code: Full
CW PT tx
CRS ok for tx to Rehab from their end
Will follow with ID and if ok with tx to [facility] today
Anticipated Discharge: Today
Subjective/Interval History
-
Date of Service: October 16, 2023
Tolerating diet. No fever or chills.
Denies shortness of breath. No chest pain.
Objective Data
-
Labs:
Laboratory Results
10/16/23 10/16/23
06:26 08:57
WBC 12.3 H
Hgb 10.0 L
Hct 30.5 L
Plt Count 472 H
Sodium 129 L
Potassium 4.0
Chloride 93 L
Carbon Dioxide 28
BUN 4 L
Creatinine 0.8
Glucose 194 H
Calcium 8.6
Vital Signs:
Vital Signs
Temp Pulse Resp BP Pulse Ox
98.2 F 88 15 137/90 99
10/16/23 07:00 10/16/23 09:07 10/16/23 07:00 10/16/23 09:07 10/16/23 07:00
I&O
10/15/23 10/16/23 10/17/23
06:59 06:59 06:59
Intake Total 1120 / 1120 1600 / 1600
Output Total 350 / 350 3140 / 3140
Balance 770 / 770 -1540 / -1540
Review of Systems
-
EENT: Denies Sore Throat
Respiratory: Denies Cough or Trouble Breathing
Cardiac: Denies Chest Pain
Neuro: Denies Dizzy
Physical Exam
-
General: No Apparent Distress
HEENT: Moist Mucous Membranes
Respiratory: Clear to Auscultation
Cardiac: Regular Rhythm and S1/S2
GI: Soft, Ostomy and Other (drains *2 with some purulence noted)
Neuro: AO x 3
Data Reviewed
-
Labs: Labs Reviewed by me
--- NOTE | 2023-10-16 12:14 | CM ---
Spoke with patient bedside.
Patient would like acute rehab.
No beds at [facility].
Patient would like [facility] referral sent.
Await bed availability.
Patient will require [place] authorization.
Plan: rehab once bed available and auth obtained.
[2023-10-16 12:23] VITALS: BP 129/79; PULSE 82; O2SAT 97
--- NOTE | 2023-10-16 14:46 | W.PN.NEPH.PH ---
Today's Communication / Plan
-
- continue FR
Assessment/Plan
-
Assessment:
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
s/p Exploratory laparotomy, lysis of adhesions, aorto-mesenteric bypass Tona thrombectomy, mesenteric arteriogram, patch angioplasty of aorto-mesenteric bypass 09/12
s/p 2nd look ex-lap 09/22 Haily ileostomy
GI bleed related to ischemic colitis
Hyponatremia due to SIADH (acute on chronic - baseline Na approx 131-134)
HTN
Moderate COPD/emphysema
CAD s/p prior hx of NSTEMI
Occlusive thrombus left arm
Plan
hyponatremia from SIADH & multifactorial
pt has difficulty to follow fluid restriction therefore patient will be at high risk for readmission which will be challenge to maintain sodium as outpatient
samsca given 10/14 last, responds well to it. Na now back up to 129
we reviewed that without FR he is risk of acute hyponatremia and SZs. patient is amenable to me restricting his fluids today
increased salt tabs to 1mg BID
encourage solute intake
abx per ID
monitor GI out put
continue to trend BMPs
d/w pt in detail
-
-
Date of Service: October 16, 2023
CC / HPI / ROS
-
Chief Complaint:
hyponatremia
History of Present Illness:
Na improved to 132 s/p samsca 10/07, 10/10. Na 130 after samsca on 10/11, decreased again on 10/14 to 126. now back up to 129
acute mesenteric ischemia c/b ischemic bowel and necrosis
no fever, BP stable
bp stable on diltiazem
Review of Systems:
no cp or sob
feels thirsty and drinks liquids, having hard time to follow FR but amenable to trying again
Labs
-
Labs:
WBC 12.3 10^3/uL (4.8-10.8) H 10/16/23 06:26
RBC 3.38 10^6/uL (4.70-6.10) L 10/16/23 06:26
Hgb 10.0 g/dL (13.0-18.0) L 10/16/23 06:26
Hct 30.5 % (39.0-52.0) L 10/16/23 06:26
Plt Count 472 10^3/uL (130-400) H 10/16/23 06:26
Sodium 129 mmol/L (135-145) L 10/16/23 08:57
Potassium 4.0 mmol/L (3.5-5.1) 10/16/23 08:57
Chloride 93 mmol/L (98-107) L 10/16/23 08:57
Carbon Dioxide 28 mmol/L (22-30) 10/16/23 08:57
BUN 4 mg/dl (9-20) L 10/16/23 08:57
Creatinine 0.8 mg/dL (0.7-1.3) 10/16/23 08:57
eGFR > 60.00 10/16/23 08:57
Glucose 194 mg/dl (70-99) H 10/16/23 08:57
Calcium 8.6 mg/dl (8.4-10.2) 10/16/23 08:57
Phosphorus 4.5 mg/dl (2.5-4.5) 09/29/23 05:09
Etd-C-Rqsosfzaxxy Pept 1080 pg/ml 09/20/23 10:03
Albumin 2.9 g/dl (3.5-5.0) L 10/09/23 04:59
Physical Exam
-
Vital Signs:
Vital Signs
Temp Pulse Resp BP Pulse Ox
98.2 F 88 15 137/90 99
10/16/23 07:00 10/16/23 09:07 10/16/23 07:00 10/16/23 09:07 10/16/23 09:00
Cardiovascular:: Regular rate and rhythm
Respiratory:: Bilateral: CTA
Lung Excursion:: Normal
Abdomen:: Nontender and Soft
Bowel Sounds:: Normal
Extremity Edema:: None: Bilateral:
Chavez Catheter: No
[2023-10-16 15:00] VITALS: BP 129/83
--- NOTE | 2023-10-16 15:33 | W.PN.ID1 ---
Date of Service
Date of Service: October 16, 2023
Today's Communication
- start levaquin to continue indefinitely as suppression
- continue fluconazole indefinitely as suppression
- recheck QTc in the AM
- complete splenic infarction
- patient will need post splenectomy vaccines as an outpatient; will arrange these through my office
- follow up in 2-4 weeks in our clinic
Assessment / Plan
Sujatha peritonitis,
Leukocytosis
- Improving
Total SMA graft occlusion
- s/p thrombectomy (performed through prior graft) & patch repair
Acute mesenteric ischemia - resolved
Transaminitis - resolving
Hx medication noncompliance
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
Recommendations:
- start levaquin to continue indefinitely as suppression
- continue fluconazole indefinitely as suppression
- recheck QTc in the AM
- complete splenic infarction
- patient will need post splenectomy vaccines as an outpatient; will arrange these through my office
- follow up in 2-4 weeks in our clinic
����������������������������������������������������������
Chief Complaint
-: Leukocytosis and Other (secondary peritonitis)
Subjective / Review of Systems
afebrile
bp stable
nearly resolved leukocytosis, thrombocytosis persists
cr stable
ileostomy output relatively controlled
last qtc was 430
Vital Signs / Physical Exam
Vital Signs
Vital Signs
Temp Pulse Resp BP Pulse Ox
98 F 91 16 129/83 100
10/16/23 15:00 10/16/23 15:00 10/16/23 15:00 10/16/23 15:00 10/16/23 15:00
Physical Exam
Constitutional: No Acute Distress
Cardiovascular: Regular Rate and S1/S2; Negative Murmur or Rub
Pulmonary: Clear and Symmetric; Negative Wheezes or Rales
Gastrointestinal: Soft, Non Tender, Non Distended, Normal Bowel Sounds and Other (stoma pink, ostomy output loose stool)
Skin: Warm and Dry; Negative Rash or Jaundice
Lines: Other (drains serosanguinous)
Objective Data
Lab Data
Lab Results
10/16/23 06:26
10/16/23 08:57
ESR 38 mm/hour (0-20) H 10/09/23 04:59
PT 17.8 Sec (11.4-14.6) H 09/13/23 03:17
INR 1.49 09/13/23 03:17
APTT Cancelled 10/02/23 12:30
Estimated Creat Clear 84 ml/min 10/16/23 08:57
Lactic Acid 1.5 mmol/L (0.7-2.0) 09/21/23 17:38
Total Bilirubin 1.2 mg/dl (0.2-1.3) 10/09/23 04:59
AST 40 U/L (17-59) 10/09/23 04:59
ALT 48 U/L (0-50) 10/09/23 04:59
Alkaline Phosphatase 177 U/L (38-126) H 10/09/23 04:59
C-Reactive Protein 161.70 mg/L (0.0-10.00) H 10/09/23 04:59
Amylase 252 U/L (30-110) H 10/07/23 04:25
Most recent labs reviewed.
Micro Results:
10/08/23 13:12 Wound Culture - Final
Abscess Pseudomonas aeruginosa
Gram Stain - Final
10/08/23 14:48 Wound Culture - Final
Abscess Pseudomonas aeruginosa
Gram Stain - Final
09/23/23 16:45 Body Fluid Culture - Final
Fluid Sujatha albicans
Gram Stain - Final
09/23/23 16:45 Anaerobic Culture - Final
Abdomen NO ANAEROBES ISOLATED
09/21/23 15:00 Wound Culture - Final
Abdomen Sujatha albicans
Gram Stain - Final
09/21/23 15:00 Anaerobic Culture - Final
Peritoneal Fluid NO ANAEROBES ISOLATED
09/20/23 10:03 Blood Culture - Final
Blood/Venous No Growth - Final Report
09/20/23 10:11 Blood Culture - Final
Blood/Venous No Growth - Final Report
09/12/23 18:05 Blood Culture - Final
Blood/Venous No Growth - Final Report
09/12/23 18:05 Influenza Types A & B (ALAN) - Final
Nasal Swab Negative for Influenza A & B, NAAT
Negative results must be combined with clinical observations
and patient history.
Nucleic Acid Amplification test (NAAT)performed on the
[employer] platform.
Imaging:
09/26/2023 CXR (portable): Persistent bibasilar atelectasis and pleural fluid. Little change from previous exams.
[2023-10-16] MEDS: LEVAQUIN 750 MG PO (17:26)
[2023-10-16] MEDS: AMBIEN 5 MG PO (19:55)
[2023-10-16] MEDS: MORPHINE SULFATE 2 MG IV (20:40)
[2023-10-16 23:51] VITALS: BP 122/75
[2023-10-17] MEDS: MORPHINE SULFATE 2 MG IV (01:25)
[2023-10-17 06:00] VITALS: BMI 18.6
[2023-10-17 07:00] VITALS: BP 128/84
[2023-10-17] MEDS: METAMUCIL, KONSYL 1 PACKET PO (09:24)
[2023-10-17] MEDS: CARDIZEM CD 120 MG PO (09:25)
[2023-10-17] MEDS: ASPIR LOW (ENTERIC COATED) 81 MG PO (09:25)
[2023-10-17] MEDS: DIFLUCAN 200 MG PO (09:25)
[2023-10-17] MEDS: SODIUM CHLORIDE 1 GRAM PO ×2 (09:25→20:28)
[2023-10-17] MEDS: PROTONIX 40 MG PO (09:25)
[2023-10-17] MEDS: LEVAQUIN 750 MG PO (09:26)
[2023-10-17] MEDS: ELIQUIS 5 MG PO ×2 (09:26→20:28)
[2023-10-17] MEDS: IMODIUM 2 MG PO ×4 (09:26→20:37)
[2023-10-17] MEDS: ROXICODONE 5 MG PO ×2 (09:41→18:51)
--- NOTE | 2023-10-17 10:13 | CM ---
Addendum entered by Migdalia Schneider 10/17/23 15:18:
Continue rehab bed search. await [facility] [place] 2[place] rehab decision.
Addendum entered by Migdalia Schneider 10/17/23 15:03:
No beds at [facility].
Addendum entered by Migdalia Schneider 10/17/23 14:21:
No beds available at [place].
patient agreeable to referrals to [facility] and [facility].
Needs Hall Auth.
Original Note:
TC to [facility], they are still reviewing. not sure if there are any rehab beds available.
Await [facility]'s TCB.
Spoke with Abilio Chairez, still no beds, may have a bed at [facility].
Plan: rehab when bed available and auth obtained.
--- NOTE | 2023-10-17 12:11 | W.PN.NEPH.PH ---
Today's Communication / Plan
-
follow up bmp in am
Assessment/Plan
-
Assessment:
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
s/p Exploratory laparotomy, lysis of adhesions, aorto-mesenteric bypass Tona thrombectomy, mesenteric arteriogram, patch angioplasty of aorto-mesenteric bypass 09/12
s/p 2nd look ex-lap 09/22 Haily ileostomy
GI bleed related to ischemic colitis
Hyponatremia due to SIADH (acute on chronic - baseline Na approx 131-134)
HTN
Moderate COPD/emphysema
CAD s/p prior hx of NSTEMI
Occlusive thrombus left arm
Plan
hyponatremia from SIADH & multifactorial
pt has difficulty to follow fluid restriction therefore patient will be at high risk for readmission which will be challenge to maintain sodium as outpatient
samsca given 10/14 last, responds well to it. Na now back up to 129 as of 10/15
we reviewed that without FR he is risk of acute hyponatremia and SZs. patient is amenable to me restricting his fluids today
maintain salt tabs to 1mg BID
encourage solute intake
abx per ID
monitor GI out put
continue to trend BMPs
d/w pt in detail
-
-
Date of Service: October 17, 2023
CC / HPI / ROS
-
Chief Complaint:
hyponatremia
History of Present Illness:
Na improved to 132 s/p samsca 10/07, 10/10. Na 130 after samsca on 10/11, decreased again on 10/14 to 126. now back up to 129 on 10/15
acute mesenteric ischemia c/b ischemic bowel and necrosis
no fever, BP stable
bp stable on diltiazem
Review of Systems:
no cp or sob
feels thirsty and drinks liquids, having hard time to follow FR but amenable to trying again
Labs
-
Labs:
WBC 12.3 10^3/uL (4.8-10.8) H 10/16/23 06:26
RBC 3.38 10^6/uL (4.70-6.10) L 10/16/23 06:26
Hgb 10.0 g/dL (13.0-18.0) L 10/16/23 06:26
Hct 30.5 % (39.0-52.0) L 10/16/23 06:26
Plt Count 472 10^3/uL (130-400) H 10/16/23 06:26
Sodium 129 mmol/L (135-145) L 10/16/23 08:57
Potassium 4.0 mmol/L (3.5-5.1) 10/16/23 08:57
Chloride 93 mmol/L (98-107) L 10/16/23 08:57
Carbon Dioxide 28 mmol/L (22-30) 10/16/23 08:57
BUN 4 mg/dl (9-20) L 10/16/23 08:57
Creatinine 0.8 mg/dL (0.7-1.3) 10/16/23 08:57
eGFR > 60.00 10/16/23 08:57
Glucose 194 mg/dl (70-99) H 10/16/23 08:57
Calcium 8.6 mg/dl (8.4-10.2) 10/16/23 08:57
Phosphorus 4.5 mg/dl (2.5-4.5) 09/29/23 05:09
Lyh-C-Qtpraysatyh Pept 1080 pg/ml 09/20/23 10:03
Albumin 2.9 g/dl (3.5-5.0) L 10/09/23 04:59
Physical Exam
-
Vital Signs:
Vital Signs
Temp Pulse Resp BP Pulse Ox
98.0 F 92 12 128/84 96
10/17/23 07:00 10/17/23 07:00 10/17/23 07:00 10/17/23 07:00 10/17/23 07:00
Cardiovascular:: Regular rate and rhythm
Respiratory:: Bilateral: CTA
Lung Excursion:: Normal
Abdomen:: Nontender and Soft
Bowel Sounds:: Decreased
Extremity Edema:: None: Bilateral:
Chavez Catheter: No
--- NOTE | 2023-10-17 14:47 | WOUNDNOTE ---
[facility] RN NOTE: Visited patient for ostomy teaching. Pouch last changed 10/14. Patient has been emptying and burping pouch. He asked for verbal review of appliance change. All questions answered. Appliance intact, no leaking noted. All ostomy supplies
in room. Will continue to follow as needed.
[2023-10-17 15:00] VITALS: BP 124/82
--- NOTE | 2023-10-17 15:08 | W.PN.HOSP.TC ---
Today's Communication/Plan
-
d/c to acute rehab once bed found
Assessment / Plan
Assessment / Plan
Assessment:
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
- s/p Exploratory laparotomy, lysis of adhesions, aorto-mesenteric bypass Tona thrombectomy, mesenteric arteriogram, patch angioplasty of aorto-mesenteric bypass 09/12
- CT-A 09/13 showing patient bypass, concern for bowel ischemia (see below)
Ischemic bowel c/b necrotic bowel
- s/p ex-lap 09/20: Necrotic and perforated entire transverse colon, ischemic right colon and terminal ileum, ischemic left colon, ? ischemia of the proximal jejunum. 70 cm terminal colon with entire right colon, transverse colon and descending colon
removed.
- s/p 2nd look ex-lap 09/22 with Murky fluid throughout the abdomen, viable remaining small intestine with excellent Doppler signals, Haily ileostomy
-CT A/P 10/05 showed collection - s/p IR placement of drain .
- ID following for secondary peritonitis.
- Continue antimicrobials per ID; improving WBC.
- Hematology input about hypercoagulable assessments noted -continue with anticoagulant and follow with office for work up.
- still with [address]--[facility] asking about output--will defer to surgery
Hyponatremia:
Fluctuating sodium
On fluid restriction and salt tablets
s/p Samsca
Apprec Nephrology
Ventilator dependent respiratory failure/acute hypoxic respiratory failure--resolved
- extubated 09/26
- Oxygenating well on nasal cannula
Post-op shock - multifactorial from sepsis/blood loss
- pressors weaned 09/26;Hemodynamics stable
- Echo normal EF
Delirium -post op -suspected TME. Off precedex.resolved
GI bleed related to ischemic colitis
Acute blood loss anemia
- monitor Hb -stable
- last unit given 09/27
- continue PPI
HTN - elevated BP noted .pt not a known HTN - Cardizem initiated .Uptitrate as needed. Blood pressure mostly under goal.
Moderate COPD/emphysema - Off of steroids taper for flare.
CAD s/p prior hx of NSTEMI - asymptomatic without chest pain. On aspirin at home.
Hyperbilirubinemia- mostly indirect elevation, possible Gilbert's + hematomas related. Continue to follow.
Abnormal LFTs - improved after TPN stopped
Hx of DVT status post apixaban 03/2021 post left knee surgery
Chronic back pain - recent steroid taper. Continued mid back pain which is a equally troubling. No sciatica . plain xrays show loss of height of superior endplate t12,l4 . Pt had pull while lifting something at home but no fall or trauma. continue
symptomatic tx
Hyperglycemia
No hx of DM
- HbA1C 5.8, close follow-up as an outpatient
- was on high doses of insulin due to combination of steroid use and TPN.
- Now off of KATERINE insulin SSI as pt off of TPN
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
Nutrition -on oral diet
Occlusive thrombus left arm - throughout the cephalic vein in the forearm, antecubital fossa, and distal aspect of the upper arm
- continue anticoagulation, on Eliquis
DVT ppx: Eliquis
Code: Full
CW PT tx
CRS ok for tx to Rehab from their end
cleared for acute rehab but no beds
Anticipated Discharge: 24 - 48 hours
Subjective/Interval History
-
Date of Service: October 17, 2023
pt asking about his sodium levels
Objective Data
-
Vital Signs:
max temp for 24 hours
10/17/23
07:00
Temp 98.0 F
Vital Signs
Temp Pulse Resp BP Pulse Ox
98.0 F 92 12 128/84 96
10/17/23 07:00 10/17/23 07:00 10/17/23 07:00 10/17/23 07:00 10/17/23 07:00
I&O
10/16/23 10/17/23 10/18/23
06:59 06:59 06:59
Intake Total 1600 / 1600 1200 / 1200
Output Total 3140 / 3140 2340 / 2340
Balance -1540 / -1540 -1140 / -1140
Review of Systems
-
All other systems: Reviewed and negative
Physical Exam
-
General: Appears Chronically Ill and Cachectic
HEENT: Normocephalic and Atraumatic
Respiratory: Clear to Auscultation; Negative Wheezes or Rhonchi
Cardiac: Regular Rhythm and S1/S2; Negative Murmur
GI: Soft, Nontender, Nondistended, Normal Bowel Sounds, Ostomy and Other (drains)
Musculoskeletal: No Clubbing, No Cyanosis and No Edema
Skin: Warm
Neuro: Awake
[2023-10-17] MEDS: AMBIEN 5 MG PO (20:28)
[2023-10-17 23:05] VITALS: BP 111/74
[2023-10-18] MEDS: ROXICODONE 5 MG PO ×2 (01:43→20:49)
[2023-10-18 06:00] VITALS: BMI 18.7
[2023-10-18 07:00] VITALS: BP 121/81
[2023-10-18 08:39] LABS: Blood Urea Nitrogen 6 mg/dl (9-20); Calcium 9.2 mg/dl (8.4-10.2); Carbon Dioxide 29 mmol/L (22-30); Chloride 98 mmol/L (98-107); Estimated Creatinine Clearance 84 ml/min; Glucose 107 mg/dl (70-99); Potassium 4.7 mmol/L (3.5-5.1); Sodium 130 mmol/L (135-145); eGFR > 60.00
[2023-10-18] MEDS: ELIQUIS 5 MG PO ×2 (08:57→20:45)
[2023-10-18] MEDS: CARDIZEM CD 120 MG PO (08:57)
[2023-10-18] MEDS: IMODIUM 2 MG PO ×4 (08:57→20:45)
[2023-10-18] MEDS: DIFLUCAN 200 MG PO (08:57)
[2023-10-18] MEDS: SODIUM CHLORIDE 1 GRAM PO ×2 (08:57→20:45)
[2023-10-18] MEDS: ASPIR LOW (ENTERIC COATED) 81 MG PO (08:57)
[2023-10-18] MEDS: PROTONIX 40 MG PO (08:57)
[2023-10-18] MEDS: METAMUCIL, KONSYL 1 PACKET PO (08:57)
[2023-10-18] MEDS: LEVAQUIN 750 MG PO (08:57)
--- NOTE | 2023-10-18 12:47 | W.PN.NEPH.PH ---
Today's Communication / Plan
-
Follow electrolytes intermittently
Maintain sodium tablets and fluid restriction
Assessment/Plan
-
Assessment:
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
s/p Exploratory laparotomy, lysis of adhesions, aorto-mesenteric bypass Tona thrombectomy, mesenteric arteriogram, patch angioplasty of aorto-mesenteric bypass 09/12
s/p 2nd look ex-lap 09/22 Haily ileostomy
GI bleed related to ischemic colitis
Hyponatremia due to SIADH (acute on chronic - baseline Na approx 131-134)
HTN
Moderate COPD/emphysema
CAD s/p prior hx of NSTEMI
Occlusive thrombus left arm
Plan
hyponatremia from SIADH & multifactorial , sodium stable at 130
pt has difficulty to follow fluid restriction therefore patient will be at high risk for readmission which will be challenge to maintain sodium as outpatient
samsca given 10/14 last, responds well to it. Na now back up to 129 as of 10/15
we reviewed that without FR he is risk of acute hyponatremia and SZs. patient is amenable to me restricting his fluids today
maintain salt tabs to 1mg BID
encourage solute intake
abx per ID
monitor GI out put
continue to trend BMPs
d/w pt in detail
-
-
Date of Service: October 18, 2023
CC / HPI / ROS
-
Chief Complaint:
hyponatremia
History of Present Illness:
Na stable at 130
acute mesenteric ischemia c/b ischemic bowel and necrosis
no fever, BP stable
bp stable on diltiazem
Review of Systems:
no cp or sob
feels thirsty and drinks liquids, having hard time to follow FR but amenable to trying again
Labs
-
Labs:
WBC 12.3 10^3/uL (4.8-10.8) H 10/16/23 06:26
RBC 3.38 10^6/uL (4.70-6.10) L 10/16/23 06:26
Hgb 10.0 g/dL (13.0-18.0) L 10/16/23 06:26
Hct 30.5 % (39.0-52.0) L 10/16/23 06:26
Plt Count 472 10^3/uL (130-400) H 10/16/23 06:26
Sodium 130 mmol/L (135-145) L 10/18/23 07:53
Potassium 4.7 mmol/L (3.5-5.1) 10/18/23 07:53
Chloride 98 mmol/L (98-107) 10/18/23 07:53
Carbon Dioxide 29 mmol/L (22-30) 10/18/23 07:53
BUN 6 mg/dl (9-20) L 10/18/23 07:53
Creatinine 0.8 mg/dL (0.7-1.3) 10/18/23 07:53
eGFR > 60.00 10/18/23 07:53
Glucose 107 mg/dl (70-99) H 10/18/23 07:53
Calcium 9.2 mg/dl (8.4-10.2) 10/18/23 07:53
Phosphorus 4.5 mg/dl (2.5-4.5) 09/29/23 05:09
Ztb-D-Mspgqkkohaw Pept 1080 pg/ml 09/20/23 10:03
Albumin 2.9 g/dl (3.5-5.0) L 10/09/23 04:59
Physical Exam
-
Vital Signs:
Vital Signs
Temp Pulse Resp BP Pulse Ox
97.7 F 111 18 121/81 97
10/18/23 07:00 10/18/23 08:57 10/18/23 07:00 10/18/23 08:57 10/18/23 07:00
Cardiovascular:: Regular rate and rhythm
Respiratory:: Bilateral: CTA
Lung Excursion:: Normal
Abdomen:: Tender
Bowel Sounds:: Decreased
Extremity Edema:: None: Bilateral:
Chavez Catheter: No
--- NOTE | 2023-10-18 14:32 | W.PN.HOSP.TC ---
Today's Communication/Plan
-
waiting for d/c
Assessment / Plan
Assessment / Plan
Assessment:
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
- s/p Exploratory laparotomy, lysis of adhesions, aorto-mesenteric bypass Tona thrombectomy, mesenteric arteriogram, patch angioplasty of aorto-mesenteric bypass 09/12
- CT-A 09/13 showing patient bypass, concern for bowel ischemia (see below)
Ischemic bowel c/b necrotic bowel
- s/p ex-lap 09/20: Necrotic and perforated entire transverse colon, ischemic right colon and terminal ileum, ischemic left colon, ? ischemia of the proximal jejunum. 70 cm terminal colon with entire right colon, transverse colon and descending colon
removed.
- s/p 2nd look ex-lap 09/22 with Murky fluid throughout the abdomen, viable remaining small intestine with excellent Doppler signals, Haily ileostomy
-CT A/P 10/05 showed collection - s/p IR placement of drain .
- ID following for secondary peritonitis.
- Continue antimicrobials per ID; improving WBC.
- Hematology input about hypercoagulable assessments noted -continue with anticoagulant and follow with office for work up.
- still with [address]--[facility] asking about output--will defer to surgery
Hyponatremia:
Fluctuating sodium
On fluid restriction and salt tablets
s/p Samsca
Apprec Nephrology
Ventilator dependent respiratory failure/acute hypoxic respiratory failure--resolved
- extubated 09/26
- Oxygenating well on nasal cannula
Post-op shock - multifactorial from sepsis/blood loss
- pressors weaned 09/26;Hemodynamics stable
- Echo normal EF
Delirium -post op -suspected TME. Off precedex.resolved
GI bleed related to ischemic colitis
Acute blood loss anemia
- monitor Hb -stable
- last unit given 09/27
- continue PPI
HTN - elevated BP noted .pt not a known HTN - Cardizem initiated .Uptitrate as needed. Blood pressure mostly under goal.
Moderate COPD/emphysema - Off of steroids taper for flare.
CAD s/p prior hx of NSTEMI - asymptomatic without chest pain. On aspirin at home.
Hyperbilirubinemia- mostly indirect elevation, possible Gilbert's + hematomas related. Continue to follow.
Abnormal LFTs - improved after TPN stopped
Hx of DVT status post apixaban 03/2021 post left knee surgery
Chronic back pain - recent steroid taper. Continued mid back pain which is a equally troubling. No sciatica . plain xrays show loss of height of superior endplate t12,l4 . Pt had pull while lifting something at home but no fall or trauma. continue
symptomatic tx
Hyperglycemia
No hx of DM
- HbA1C 5.8, close follow-up as an outpatient
- was on high doses of insulin due to combination of steroid use and TPN.
- Now off of KATERINE insulin SSI as pt off of TPN
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
Nutrition -on oral diet
Occlusive thrombus left arm - throughout the cephalic vein in the forearm, antecubital fossa, and distal aspect of the upper arm
- continue anticoagulation, on Eliquis
DVT ppx: Eliquis
Code: Full
CW PT tx
CRS ok for tx to Rehab from their end
cleared for acute rehab but no beds
Anticipated Discharge: > 48 hours
Subjective/Interval History
-
Date of Service: October 18, 2023
pt felt weak , chest pain, bilateral hand numbness when getting up earlier this AM--since resolved
Objective Data
-
Labs:
Laboratory Results
10/18/23
07:53
Sodium 130 L
Potassium 4.7
Chloride 98
Carbon Dioxide 29
BUN 6 L
Creatinine 0.8
Glucose 107 H
Calcium 9.2
Vital Signs:
max temp for 24 hours
10/17/23
23:05
Temp 99.0 F
Vital Signs
Temp Pulse Resp BP Pulse Ox
97.7 F 111 18 121/81 97
10/18/23 07:00 10/18/23 08:57 10/18/23 07:00 10/18/23 08:57 10/18/23 07:00
I&O
10/17/23 10/18/23 10/19/23
06:59 06:59 06:59
Intake Total 1200 / 1200 905 / 905
Output Total 2340 / 2340 1195 / 1195
Balance -1140 / -1140 -290 / -290
Review of Systems
-
All other systems: Reviewed and negative
Physical Exam
-
General: Appears Chronically Ill and Cachectic
HEENT: Normocephalic and Atraumatic
Respiratory: Clear to Auscultation; Negative Wheezes or Rhonchi
Cardiac: Regular Rhythm and S1/S2; Negative Murmur
GI: Soft, Nontender, Nondistended, Normal Bowel Sounds and Ostomy
Musculoskeletal: No Clubbing, No Cyanosis and No Edema
Skin: Dry
Neuro: Awake
Psych: Calm
[2023-10-18 15:00] VITALS: BP 119/72
[2023-10-18] MEDS: AMBIEN 5 MG PO (20:45)
[2023-10-18 23:21] VITALS: BP 128/77
[2023-10-19 06:00] VITALS: BMI 18.9
[2023-10-19 07:53] VITALS: BP 131/72
[2023-10-19] MEDS: METAMUCIL, KONSYL 1 PACKET PO (08:11)
[2023-10-19] MEDS: SODIUM CHLORIDE 1 GRAM PO ×2 (08:13→20:24)
[2023-10-19] MEDS: LEVAQUIN 750 MG PO (08:13)
[2023-10-19] MEDS: PROTONIX 40 MG PO (08:13)
[2023-10-19] MEDS: CARDIZEM CD 120 MG PO (08:13)
[2023-10-19] MEDS: ASPIR LOW (ENTERIC COATED) 81 MG PO (08:14)
[2023-10-19] MEDS: ELIQUIS 5 MG PO ×2 (08:14→20:23)
[2023-10-19] MEDS: IMODIUM 2 MG PO ×3 (08:14→17:26)
[2023-10-19] MEDS: DIFLUCAN 200 MG PO (08:14)
[2023-10-19 08:55] LABS: Blood Urea Nitrogen 9 mg/dl (9-20); Carbon Dioxide 26 mmol/L (22-30); Chloride 99 mmol/L (98-107); Estimated Creatinine Clearance 85 ml/min; Glucose 136 mg/dl (70-99); Potassium 4.5 mmol/L (3.5-5.1); Sodium 127 mmol/L (135-145); eGFR > 60.00
--- NOTE | 2023-10-19 13:39 | PTCARENOTE ---
Na level is 127 today- hospitalist and Dr Mauro notified
--- NOTE | 2023-10-19 14:30 | W.PN.HOSP.TC ---
Today's Communication/Plan
-
waiting for acute rehab bed
Assessment / Plan
Assessment / Plan
no changes, waiting for acute rehab placement
Assessment:
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
- s/p Exploratory laparotomy, lysis of adhesions, aorto-mesenteric bypass Tona thrombectomy, mesenteric arteriogram, patch angioplasty of aorto-mesenteric bypass 09/12
- CT-A 09/13 showing patient bypass, concern for bowel ischemia (see below)
Ischemic bowel c/b necrotic bowel
- s/p ex-lap 09/20: Necrotic and perforated entire transverse colon, ischemic right colon and terminal ileum, ischemic left colon, ? ischemia of the proximal jejunum. 70 cm terminal colon with entire right colon, transverse colon and descending colon
removed.
- s/p 2nd look ex-lap 09/22 with Murky fluid throughout the abdomen, viable remaining small intestine with excellent Doppler signals, Haily ileostomy
-CT A/P 10/05 showed collection - s/p IR placement of drain .
- ID following for secondary peritonitis.
- Continue antimicrobials per ID; improving WBC.
- Hematology input about hypercoagulable assessments noted -continue with anticoagulant and follow with office for work up.
- still with [address]--[facility] asking about output--will defer to surgery
Hyponatremia:
Fluctuating sodium
On fluid restriction and salt tablets
s/p Samsca
Apprec Nephrology
Ventilator dependent respiratory failure/acute hypoxic respiratory failure--resolved
- extubated 09/26
- Oxygenating well on nasal cannula
Post-op shock - multifactorial from sepsis/blood loss
- pressors weaned 09/26;Hemodynamics stable
- Echo normal EF
Delirium -post op -suspected TME. Off precedex.resolved
GI bleed related to ischemic colitis
Acute blood loss anemia
- monitor Hb -stable
- last unit given 09/27
- continue PPI
HTN - elevated BP noted .pt not a known HTN - Cardizem initiated .Uptitrate as needed. Blood pressure mostly under goal.
Moderate COPD/emphysema - Off of steroids taper for flare.
CAD s/p prior hx of NSTEMI - asymptomatic without chest pain. On aspirin at home.
Hyperbilirubinemia- mostly indirect elevation, possible Gilbert's + hematomas related. Continue to follow.
Abnormal LFTs - improved after TPN stopped
Hx of DVT status post apixaban 03/2021 post left knee surgery
Chronic back pain - recent steroid taper. Continued mid back pain which is a equally troubling. No sciatica . plain xrays show loss of height of superior endplate t12,l4 . Pt had pull while lifting something at home but no fall or trauma. continue
symptomatic tx
Hyperglycemia
No hx of DM
- HbA1C 5.8, close follow-up as an outpatient
- was on high doses of insulin due to combination of steroid use and TPN.
- Now off of KATERINE insulin SSI as pt off of TPN
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
Nutrition -on oral diet
Occlusive thrombus left arm - throughout the cephalic vein in the forearm, antecubital fossa, and distal aspect of the upper arm
- continue anticoagulation, on Eliquis
DVT ppx: Eliquis
Code: Full
CW PT tx
CRS ok for tx to Rehab from their end
cleared for acute rehab but no beds
Anticipated Discharge: Within 24 hours
Subjective/Interval History
-
Date of Service: October 19, 2023
no c/o
Objective Data
-
Labs:
Laboratory Results
10/19/23
08:21
Sodium 127 L
Potassium 4.5
Chloride 99
Carbon Dioxide 26
BUN 9
Creatinine 0.8
Glucose 136 H
Calcium 9.0
Vital Signs:
max temp for 24 hours
10/18/23
15:00
Temp 98.9 F
Vital Signs
Temp Pulse Resp BP Pulse Ox
98.1 F 84 16 131/72 98
10/19/23 07:53 10/19/23 07:53 10/19/23 07:53 10/19/23 07:53 10/19/23 07:53
I&O
10/18/23 10/19/23 10/20/23
06:59 06:59 06:59
Intake Total 905 / 905 1145 / 1145
Output Total 1195 / 1195 1160 / 1160
Balance -290 / -290 -15 / -15
Review of Systems
-
All other systems: Reviewed and negative
Physical Exam
-
General: Appears Chronically Ill
HEENT: Normocephalic and Atraumatic
Respiratory: Clear to Auscultation; Negative Wheezes or Rhonchi
Cardiac: Regular Rhythm and S1/S2; Negative Murmur
GI: Soft, Nondistended, Normal Bowel Sounds, Tender and Ostomy
Musculoskeletal: No Clubbing, No Cyanosis and No Edema
[2023-10-19 15:39] VITALS: BP 122/69
[2023-10-19 16:21] VITALS: BP 115/62; PULSE 82; O2SAT 98
[2023-10-19] MEDS: AMBIEN 5 MG PO (20:23)
[2023-10-19] MEDS: ROXICODONE 5 MG PO (20:24)
[2023-10-19] MEDS: IMODIUM PO (21:07)
[2023-10-19 23:10] VITALS: BP 107/66
[2023-10-20 07:30] VITALS: BP 113/72
[2023-10-20] MEDS: PROTONIX 40 MG PO (07:39)
[2023-10-20] MEDS: METAMUCIL, KONSYL 1 PACKET PO (07:39)
[2023-10-20] MEDS: SODIUM CHLORIDE 1 GRAM PO (07:39)
[2023-10-20] MEDS: CARDIZEM CD 120 MG PO (07:39)
[2023-10-20] MEDS: DIFLUCAN 200 MG PO (07:40)
[2023-10-20] MEDS: ELIQUIS 5 MG PO ×2 (07:40→20:32)
[2023-10-20] MEDS: IMODIUM 2 MG PO ×4 (07:40→21:33)
[2023-10-20] MEDS: LEVAQUIN 750 MG PO (07:40)
[2023-10-20] MEDS: ASPIR LOW (ENTERIC COATED) 81 MG PO (07:40)
[2023-10-20 10:05] LABS: Blood Urea Nitrogen 8 mg/dl (9-20); Calcium 9.2 mg/dl (8.4-10.2); Carbon Dioxide 23 mmol/L (22-30); Chloride 98 mmol/L (98-107); Estimated Creatinine Clearance 85 ml/min; Glucose 140 mg/dl (70-99); Potassium 4.7 mmol/L (3.5-5.1); Sodium 129 mmol/L (135-145); eGFR > 60.00
--- NOTE | 2023-10-20 10:54 | PTCARENOTE ---
Patient awake and alert , denies any pain or discomfort. Ileostomy draining liquid stool . Patient providing self care without difficulty. Ambulating in room with steady gait .
--- NOTE | 2023-10-20 11:21 | W.PN.NEPH.PH ---
Today's Communication / Plan
-
increase salt
Assessment/Plan
-
Assessment:
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
s/p Exploratory laparotomy, lysis of adhesions, aorto-mesenteric bypass Tona thrombectomy, mesenteric arteriogram, patch angioplasty of aorto-mesenteric bypass 09/12
s/p 2nd look ex-lap 09/22 Haily ileostomy
GI bleed related to ischemic colitis
Hyponatremia due to SIADH (acute on chronic - baseline Na approx 131-134)
HTN
Moderate COPD/emphysema
CAD s/p prior hx of NSTEMI
Occlusive thrombus left arm
Plan
increase NaCl to 1.5g bid
continue FR
for rehab
follow BMP later this week is dc
can always add lasix as well
-
-
Date of Service: October 20, 2023
CC / HPI / ROS
-
Chief Complaint:
hyponatremia
History of Present Illness:
Na stable at 129
acute mesenteric ischemia c/b ischemic bowel and necrosis
no fever, BP stable
bp stable on diltiazem
Review of Systems:
no cp or sob
says he is doing better with FR
Labs
-
Labs:
WBC 12.3 10^3/uL (4.8-10.8) H 10/16/23 06:26
RBC 3.38 10^6/uL (4.70-6.10) L 10/16/23 06:26
Hgb 10.0 g/dL (13.0-18.0) L 10/16/23 06:26
Hct 30.5 % (39.0-52.0) L 10/16/23 06:26
Plt Count 472 10^3/uL (130-400) H 10/16/23 06:26
Sodium 129 mmol/L (135-145) L 10/20/23 08:52
Potassium 4.7 mmol/L (3.5-5.1) 10/20/23 08:52
Chloride 98 mmol/L (98-107) 10/20/23 08:52
Carbon Dioxide 23 mmol/L (22-30) 10/20/23 08:52
BUN 8 mg/dl (9-20) L 10/20/23 08:52
Creatinine 0.8 mg/dL (0.7-1.3) 10/20/23 08:52
eGFR > 60.00 10/20/23 08:52
Glucose 140 mg/dl (70-99) H 10/20/23 08:52
Calcium 9.2 mg/dl (8.4-10.2) 10/20/23 08:52
Phosphorus 4.5 mg/dl (2.5-4.5) 09/29/23 05:09
Zyj-T-Gtepcvuuheh Pept 1080 pg/ml 09/20/23 10:03
Albumin 2.9 g/dl (3.5-5.0) L 10/09/23 04:59
Physical Exam
-
Vital Signs:
Vital Signs
Temp Pulse Resp BP Pulse Ox
97.8 F 89 18 113/72 99
10/20/23 07:30 10/20/23 07:30 10/20/23 07:30 10/20/23 07:30 10/20/23 07:30
Cardiovascular:: Regular rate and rhythm
Respiratory:: Bilateral: CTA
Lung Excursion:: Normal
Abdomen:: Nontender and Soft
Bowel Sounds:: Normal
Extremity Edema:: None: Bilateral:
--- NOTE | 2023-10-20 11:42 | CM ---
Addendum entered by Migdalia Schneider 10/20/23 16:34:
[facility]
Approved 8 days Acute Rehab
NRD 10/28/23
Updates to
Questions call P# [phone]
Authorization # [id number]
Addendum entered by Migdalia Schneider 10/20/23 15:53:
Case called into [facility] for [facility] authorization , Spoke with Renee she will call back with determination.
Plan: rehab, await insurance approval/authorization.
Addendum entered by Migdalia Schneider 10/20/23 13:40:
Patient accepted for [facility] tomorrow.
Need updated therapy notes.
Insurance authorization pending.
Plan: [facility]
NPI# [id number]
Dr Damon NPI# [id number]
Original Note:
TC from [facility] rehab.
Chemistry and hematology reviewed.
[facility] rehab requesting repeat CBC prior to accepting.
Patient will require insurance authorization.
Plan: [facility] rehab if accepted
--- NOTE | 2023-10-20 11:43 | W.PN.HOSP.TC ---
Addendum entered and electronically signed by Abraham Jose MD 10/20/23 16:14:
Pt meets criteria for severe protein calorie malnutrition of acute illness with </=50% est energy needs >/=5days, moderate loss of subcutaneous fat (orbital, tricep), moderate loss muscle (clavicle, pectoralis). CW diet and supplements
Original Note:
Today's Communication/Plan
-
DC
Assessment / Plan
Assessment / Plan
no changes, waiting for acute rehab placement
Assessment:
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
- s/p Exploratory laparotomy, lysis of adhesions, aorto-mesenteric bypass Tona thrombectomy, mesenteric arteriogram, patch angioplasty of aorto-mesenteric bypass 09/12
- CT-A 09/13 showing patient bypass, concern for bowel ischemia (see below)
Ischemic bowel c/b necrotic bowel
- s/p ex-lap 09/20: Necrotic and perforated entire transverse colon, ischemic right colon and terminal ileum, ischemic left colon, ? ischemia of the proximal jejunum. 70 cm terminal colon with entire right colon, transverse colon and descending colon
removed.
- s/p 2nd look ex-lap 09/22 with Murky fluid throughout the abdomen, viable remaining small intestine with excellent Doppler signals, Haily ileostomy
-CT A/P 10/05 showed collection - s/p IR placement of drain .
- - Continue antimicrobials per ID; improving WBC. Would need chronic Levaquin and fluconazole prophylaxis. 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
- Hematology input about hypercoagulable assessments noted -continue with anticoagulant and follow with office for work up.
-
Hyponatremia:
Fluctuating sodium
On fluid restriction and salt tablets
s/p Samsca
Follow Na
Ventilator dependent respiratory failure/acute hypoxic respiratory failure--resolved
- extubated 09/26
- Oxygenating well on nasal cannula
Post-op shock - multifactorial from sepsis/blood loss
- pressors weaned 09/26;Hemodynamics stable
- Echo normal EF
Delirium -post op -suspected TME. Off precedex.resolved
GI bleed related to ischemic colitis
Acute blood loss anemia
- monitor Hb -stable
- last unit given 09/27
- continue PPI
HTN - elevated BP noted .pt not a known HTN - Cardizem initiated .Uptitrate as needed. Blood pressure mostly under goal.
Moderate COPD/emphysema - Off of steroids taper for flare.
CAD s/p prior hx of NSTEMI - asymptomatic without chest pain. On aspirin at home.
Hyperbilirubinemia- mostly indirect elevation, possible Gilbert's + hematomas related. Continue to follow.
Abnormal LFTs - improved after TPN stopped
Hx of DVT status post apixaban 03/2021 post left knee surgery
Chronic back pain - recent steroid taper. Continued mid back pain which is a equally troubling. No sciatica . plain xrays show loss of height of superior endplate t12,l4 . Pt had pull while lifting something at home but no fall or trauma. continue
symptomatic tx
Hyperglycemia
No hx of DM
- HbA1C 5.8, close follow-up as an outpatient
- was on high doses of insulin due to combination of steroid use and TPN.
- Now off of KATERINE insulin SSI as pt off of TPN
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
Nutrition -on oral diet
Occlusive thrombus left arm - throughout the cephalic vein in the forearm, antecubital fossa, and distal aspect of the upper arm
- continue anticoagulation, on Eliquis
DVT ppx: Eliquis
Code: Full
Medically stable for discharge
Discussed with case management-looking at other rehab facilities.
Anticipated Discharge: Today
Subjective/Interval History
-
Date of Service: October 20, 2023
Continues to feel improved. Feels he is physically also better and may not need longer rehab.
No fever or chills.
No nausea vomiting.
Objective Data
-
Labs:
Laboratory Results
10/20/23
08:52
Sodium 129 L
Potassium 4.7
Chloride 98
Carbon Dioxide 23
BUN 8 L
Creatinine 0.8
Glucose 140 H
Calcium 9.2
Vital Signs:
Vital Signs
Temp Pulse Resp BP Pulse Ox
97.8 F 89 18 113/72 99
10/20/23 07:30 10/20/23 07:30 10/20/23 07:30 10/20/23 07:30 10/20/23 07:30
I&O
10/19/23 10/20/23 10/21/23
06:59 06:59 06:59
Intake Total 1145 / 1145 1045 / 1045
Output Total 1160 / 1160 1222 / 1222
Balance -15 / -15 -177 / -177
Review of Systems
-
Constitutional: Denies Fever
Respiratory: Denies Cough or Trouble Breathing
Abdomen/GI: Denies Abdominal Pain, Nausea or Vomiting
Neuro: Denies Dizzy
Physical Exam
-
HEENT: Moist Mucous Membranes
Respiratory: Clear to Auscultation
Cardiac: Regular Rhythm and S1/S2
GI: Soft, Nontender, Ostomy and Other (Abdo drains *2 with improved drainage)
Neuro: AO x 3
Data Reviewed
-
Labs: Labs Reviewed by me
[2023-10-20 11:57] LABS: Hematocrit 31.1 % (39.0-52.0); Mean Corp Hgb Conc. 32.2 g/dL (33.0-37.0); Mean Corpuscular Hgb 29.9 pg (27.0-31.0); Mean Corpuscular Volume 93.1 fL (80.0-94.0); Mean Platelet Volume 9.5 fL (7.4-10.4); Platelet Count 611 10^3/uL (130-400); Red Blood Cell Count 3.34 10^6/uL (4.70-6.10); White Blood Cell Count 13.8 10^3/uL (4.8-10.8)
[2023-10-20 14:03] VITALS: BP 107/63; PULSE 74; O2SAT 99
[2023-10-20 15:30] VITALS: BP 101/65
[2023-10-20 15:31] VITALS: BP 108/73; BP 119/73; PULSE 86
--- NOTE | 2023-10-20 15:36 | W.PN.ID1 ---
Date of Service
Date of Service: October 20, 2023
Today's Communication
continue levofloxacin and fluconazole as suppression
follow up in my clinic in several weeks
Assessment / Plan
Sujatha peritonitis,
Leukocytosis
- Improving
Total SMA graft occlusion
- s/p thrombectomy (performed through prior graft) & patch repair
Hx medication noncompliance
Total splenic infarction
Recommendations:
- continue levaquin to continue indefinitely as suppression
- continue fluconazole indefinitely as suppression
- QTc remains acceptable
- complete splenic infarction
- patient will need post splenectomy vaccines as an outpatient; will arrange these through my office
- follow up in 2-4 weeks in our clinic
����������������������������������������������������������
Chief Complaint
-: Leukocytosis and Other (secondary peritonitis)
Subjective / Review of Systems
feculent drainage ongoing from the drain
afebrile
bp stable
overall improved leukocytosis
persistent thrombocytosis - already has a hypercoagulable follow up with oncology planned
Vital Signs / Physical Exam
Vital Signs
Vital Signs
Temp Pulse Resp BP Pulse Ox
97.8 F 89 18 113/72 99
10/20/23 07:30 10/20/23 07:30 10/20/23 07:30 10/20/23 07:30 10/20/23 07:30
Physical Exam
Constitutional: No Acute Distress and Chronically Ill
Cardiovascular: Regular Rate and S1/S2; Negative Murmur or Rub
Pulmonary: Clear and Symmetric; Negative Wheezes or Rales
Gastrointestinal: Soft, Non Tender, Non Distended and Normal Bowel Sounds
Skin: Warm and Dry; Negative Rash or Jaundice
Lines: Other (drains x2, 1 with peristent feculent drainage, the other serosanguinous)
Objective Data
Lab Data
Lab Results
10/20/23 08:51
10/20/23 08:52
ESR 38 mm/hour (0-20) H 10/09/23 04:59
PT 17.8 Sec (11.4-14.6) H 09/13/23 03:17
INR 1.49 09/13/23 03:17
APTT Cancelled 10/02/23 12:30
Estimated Creat Clear 85 ml/min 10/20/23 08:52
Lactic Acid 1.5 mmol/L (0.7-2.0) 09/21/23 17:38
Total Bilirubin 1.2 mg/dl (0.2-1.3) 10/09/23 04:59
AST 40 U/L (17-59) 10/09/23 04:59
ALT 48 U/L (0-50) 10/09/23 04:59
Alkaline Phosphatase 177 U/L (38-126) H 10/09/23 04:59
C-Reactive Protein 161.70 mg/L (0.0-10.00) H 10/09/23 04:59
Amylase 252 U/L (30-110) H 10/07/23 04:25
Most recent labs reviewed.
Micro Results:
10/08/23 13:12 Wound Culture - Final
Abscess Pseudomonas aeruginosa
Gram Stain - Final
10/08/23 14:48 Wound Culture - Final
Abscess Pseudomonas aeruginosa
Gram Stain - Final
09/23/23 16:45 Body Fluid Culture - Final
Fluid Sujatha albicans
Gram Stain - Final
09/23/23 16:45 Anaerobic Culture - Final
Abdomen NO ANAEROBES ISOLATED
09/21/23 15:00 Wound Culture - Final
Abdomen Sujatha albicans
Gram Stain - Final
09/21/23 15:00 Anaerobic Culture - Final
Peritoneal Fluid NO ANAEROBES ISOLATED
09/20/23 10:03 Blood Culture - Final
Blood/Venous No Growth - Final Report
09/20/23 10:11 Blood Culture - Final
Blood/Venous No Growth - Final Report
09/12/23 18:05 Blood Culture - Final
Blood/Venous No Growth - Final Report
09/12/23 18:05 Influenza Types A & B (ALAN) - Final
Nasal Swab Negative for Influenza A & B, NAAT
Negative results must be combined with clinical observations
and patient history.
Nucleic Acid Amplification test (NAAT)performed on the
[employer] platform.
Imaging:
09/26/2023 CXR (portable): Persistent bibasilar atelectasis and pleural fluid. Little change from previous exams.
[2023-10-20] MEDS: SODIUM CHLORIDE 1.5 GRAM PO (20:33)
[2023-10-20] MEDS: AMBIEN 5 MG PO (20:33)
[2023-10-20] MEDS: ROXICODONE 5 MG PO (20:39)
[2023-10-20 23:58] VITALS: BP 99/63
[2023-10-21 01:51] VITALS: BP 112/66
--- NOTE | 2023-10-21 02:18 | PTCARENOTE ---
Patient's temp- 100.5 ( oral). AVIVA Munson made aware. New order for CBC for this AM.
[2023-10-21 06:00] VITALS: BMI 19.0
[2023-10-21] MEDS: METAMUCIL, KONSYL 1 PACKET PO (08:03)
[2023-10-21] MEDS: SODIUM CHLORIDE 1.5 GRAM PO ×2 (08:04→19:38)
[2023-10-21] MEDS: ELIQUIS 5 MG PO ×2 (08:05→19:38)
[2023-10-21] MEDS: LEVAQUIN 750 MG PO (08:05)
[2023-10-21] MEDS: CARDIZEM CD 120 MG PO (08:05)
[2023-10-21] MEDS: IMODIUM 2 MG PO ×2 (08:05→19:38)
[2023-10-21] MEDS: DIFLUCAN 200 MG PO (08:05)
[2023-10-21] MEDS: ASPIR LOW (ENTERIC COATED) 81 MG PO (08:05)
[2023-10-21] MEDS: PROTONIX 40 MG PO (08:06)
[2023-10-21 08:34] VITALS: BP 102/61
--- NOTE | 2023-10-21 09:38 | W.PN.ONC ---
Today's Communication / Plan
-
With recurrent thrombotic episodes, recommend continuing Eliquis indefinitely. D/w patient, who expressed agreement and understanding.
No evidence for antiphospholipid syndrome. No role for add'l thrombophilia testing, would not change mgmt.
Continue Levaquin and Fluconazole per ID for ongoing suppression
CBC pending this am; WBC has been slowly trending down, mild anemia is stable. Fluctuating thrombocytosis noted.
Recommend outpatient CBC monitoring per PMD. If persistent CBC abnormalities despite clinical improvement, would consider further heme work-up.
He does not need scheduled hematology follow-up.
Will sign off. Please call with any questions.
Impression
Impression
Vascular disease
Outpt non-compliance with statin, Plavix, Xarelto
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
s/p ex lap, OSKAR, aorto-mesenteric bypass thrombectomy, mesenteric arteriogram, patch angioplasty of aorto-mesenteric bypass 09/13/23, complicated by antwon peritonitis
Acute anemia
Leukocytosis
Hx DVT s/p orthopedic surgery after anticoagulation discontinued (2020)
Family hx of VTE
Superficial venous thrombosis cephalic vein
Plan
Plan
With recurrent thrombotic episodes, recommend continuing Eliquis indefinitely. D/w patient, who expressed agreement and understanding.
No evidence for antiphospholipid syndrome. No role for add'l thrombophilia testing, would not change mgmt.
Continue Levaquin and Fluconazole per ID for ongoing suppression
CBC pending this am; WBC has been slowly trending down, mild anemia is stable. Fluctuating thrombocytosis noted.
Recommend outpatient CBC monitoring per PMD. If persistent CBC abnormalities despite clinical improvement, would consider further heme work-up.
He does not need scheduled hematology follow-up.
Will sign off. Please call with any questions.
Subjective/Objective
Subjective/Objective
no new complaints, hoping to get to [facility] today.
Tolerating Eliquis, no bleeding.
Vital Signs:
Vital Signs
Temp Pulse Resp BP Pulse Ox
98.0 F 102 16 102/61 95
10/21/23 08:34 10/21/23 08:34 10/21/23 08:34 10/21/23 08:34 10/21/23 08:34
Lab Results:
Laboratory Data
WBC 13.8 10^3/uL (4.8-10.8) H 10/20/23 08:51
Hgb 10.0 g/dL (13.0-18.0) L 10/20/23 08:51
Plt Count 611 10^3/uL (130-400) H D 10/20/23 08:51
PT 17.8 Sec (11.4-14.6) H 09/13/23 03:17
INR 1.49 09/13/23 03:17
APTT Cancelled 10/02/23 12:30
eGFR > 60.00 10/20/23 08:52
--- NOTE | 2023-10-21 10:23 | PTCARENOTE ---
Patient with temp 100.5 overnight- hospitalist aware. Afebrile this morning, denies any c/o pain or discomfort. Ambulating with a steady gait and walker
--- NOTE | 2023-10-21 10:34 | W.PN.HOSP.TC ---
Today's Communication/Plan
-
Hold on discharge. Will ask ID and colorectal surgery to reevaluate today prior to discharge.
Assessment / Plan
Assessment / Plan
no changes, waiting for acute rehab placement
Assessment:
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
- s/p Exploratory laparotomy, lysis of adhesions, aorto-mesenteric bypass Tona thrombectomy, mesenteric arteriogram, patch angioplasty of aorto-mesenteric bypass 09/12
- CT-A 09/13 showing patient bypass, concern for bowel ischemia (see below)
Ischemic bowel c/b necrotic bowel
- s/p ex-lap 09/20: Necrotic and perforated entire transverse colon, ischemic right colon and terminal ileum, ischemic left colon, ? ischemia of the proximal jejunum. 70 cm terminal colon with entire right colon, transverse colon and descending colon
removed.
- s/p 2nd look ex-lap 09/22 with Murky fluid throughout the abdomen, viable remaining small intestine with excellent Doppler signals, Haily ileostomy
-CT A/P 10/05 showed collection - s/p IR placement of drain .
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
- Hematology input about hypercoagulable assessments noted -continue with anticoagulant . BEAU Ortiz Good year today -she feels hypercoagulable workup will not change the management as he would need to be on anticoagulation due to his thrombosis. Also
does not feel the need to follow with the radiation therapist. Follow-up PCP upon discharge.
Hyponatremia:
Fluctuating sodium
On fluid restriction and salt tablets
s/p Samsca
Follow Na
Ventilator dependent respiratory failure/acute hypoxic respiratory failure--resolved
- extubated 09/26
- Oxygenating well on nasal cannula
Post-op shock - multifactorial from sepsis/blood loss
- pressors weaned 09/26;Hemodynamics stable
- Echo normal EF
Delirium -post op -suspected TME. Off precedex.resolved
GI bleed related to ischemic colitis
Acute blood loss anemia
- monitor Hb -stable
- last unit given 09/27
- continue PPI
HTN - elevated BP noted .pt not a known HTN - Cardizem initiated .Uptitrate as needed. Blood pressure mostly under goal.
Moderate COPD/emphysema - Off of steroids taper for flare.
CAD s/p prior hx of NSTEMI - asymptomatic without chest pain. On aspirin at home.
Hyperbilirubinemia- mostly indirect elevation, possible Gilbert's + hematomas related. Continue to follow.
Abnormal LFTs - improved after TPN stopped
Hx of DVT status post apixaban 03/2021 post left knee surgery
Chronic back pain - recent steroid taper. Continued mid back pain which is a equally troubling. No sciatica . plain xrays show loss of height of superior endplate t12,l4 . Pt had pull while lifting something at home but no fall or trauma. continue
symptomatic tx
Hyperglycemia
No hx of DM
- HbA1C 5.8, close follow-up as an outpatient
- was on high doses of insulin due to combination of steroid use and TPN.
- Now off of KATERINE insulin SSI as pt off of TPN
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
Nutrition -on oral diet
Occlusive thrombus left arm - throughout the cephalic vein in the forearm, antecubital fossa, and distal aspect of the upper arm
- continue anticoagulation, on Eliquis
DVT ppx: Eliquis
Code: Full
With persistently elevated white count, raising leukocytosis, low-grade fever, and tachycardia asked ID and colorectal to see the patient back today to evaluate the abdominal collection prior to discharge to [facility].
Patient has been accepted at [facility] and has a bed for today.
Total time spent on today's encounter was 52 minutes which included time spent in counseling the patient regarding diagnosis and treatment plan as listed above, goals of care, and symptom management. Case was discussed with nursing staff,
specialists, and care coordinators/case management. All labs and imaging personally reviewed by me. Remainder the time spent in detailed review of previous records, lab data, imaging, and other medical provider documentation.
Anticipated Discharge: 24 - 48 hours
Subjective/Interval History
-
Date of Service: October 21, 2023
Patient feels his stools are harder now. He is on Imodium [id number].
Also with most of the medication given in the morning at his breakfast ,he feels some discomfort in the belly and was wondering if some of the medications can be switched to the evening.
Denies fever or chills. Last night low-grade fever noted.
No nausea vomiting.
Objective Data
-
Labs:
Laboratory Results
10/21/23
06:00
WBC Pending
Hgb Pending
Hct Pending
Plt Count Pending
Sodium Pending
Potassium Pending
Chloride Pending
Carbon Dioxide Pending
BUN Pending
Creatinine Pending
Glucose Pending
Calcium Pending
Vital Signs:
Vital Signs
Temp Pulse Resp BP Pulse Ox
98.0 F 102 16 102/61 95
10/21/23 08:34 10/21/23 08:34 10/21/23 08:34 10/21/23 08:34 10/21/23 08:34
I&O
10/20/23 10/21/23 10/22/23
06:59 06:59 06:59
Intake Total 1045 / 1045 905 / 905
Output Total 1222 / 1222 710 / 710
Balance -177 / -177 195 / 195
Review of Systems
-
Respiratory: Denies Cough or Trouble Breathing
Cardiac: Denies Chest Pain
Neuro: Denies Dizzy
Physical Exam
-
General: No Apparent Distress
HEENT: Moist Mucous Membranes
Respiratory: Clear to Auscultation
Cardiac: Regular Rhythm and Tachycardic
GI: Soft, Nondistended, Normal Bowel Sounds, Ostomy (just emptied) and Other (2 abdominal drains present - decreased out put)
Neuro: AO x 3
Data Reviewed
-
Labs: Labs Reviewed by me
--- NOTE | 2023-10-21 10:50 | W.PN.ID1 ---
Addendum entered and electronically signed by So Marks MD 10/21/23 17:26:
C diff negative
drains appear to be managing the fluid collections
colorectal is rediscussing with IR
continue zosyn
Original Note:
Date of Service
Date of Service: October 21, 2023
Today's Communication
- will repeat CT a/p with IV and oral contrast
- check for c diff
- switch levaquin to zosyn
- continue fluconazole indefinitely as suppression
- not stable for dc from ID perspective at this time, will need to reassess causes of fever
Assessment / Plan
Sujatha peritonitis
Leukocytosis
Total SMA graft occlusion
- s/p thrombectomy (performed through prior graft) & patch repair
Hx medication noncompliance
Total splenic infarction
Recommendations:
- new fever - reassessed and only complaint is ongoing abdominal pain and post prandial fullness 'I can only eat a small amount because then I feel so much bloating' has lost about 15 kg since admission
- will repeat CT a/p with IV and oral contrast
- stool loose appears to be at baseline but loose - will check for C diff
- switch levaquin to zosyn
- continue fluconazole indefinitely as suppression
- QTc remains acceptable
- complete splenic infarction
- patient will need post splenectomy vaccines as an outpatient; will arrange these through my office
- not stable for dc from ID perspective at this time, will need to reassess causes of fever
����������������������������������������������������������
Chief Complaint
-: Leukocytosis and Other (secondary peritonitis)
Subjective / Review of Systems
febrile to 100.5 overnight
bp stable
wbc count today 14
plt 617
cr stable
also note patient has lost ~14 kg since admission
left upper abd drain minimal output
drain B: ongoing moderate output
right drain: ongoing moderate output recorded until 10/16
complains of abdominal pain - mostly post prandial, some abdominal tenderness with mild pressure; no rebound or guarding, no peritoneal signs
denied: headaches, sinus tenderness, cough, vomiting, dysuria, urinary urgency/frequency, new rashes, new joint pains, no current PIVs and no recent phlebitis, no unilateral swelling of the legs
Stool in ostomy is loose - at his baseline
some nausea
Vital Signs / Physical Exam
Vital Signs
Vital Signs
Temp Pulse Resp BP Pulse Ox
98.0 F 102 16 102/61 95
10/21/23 08:34 10/21/23 08:34 10/21/23 08:34 10/21/23 08:34 10/21/23 08:34
Physical Exam
Constitutional: No Acute Distress and Chronically Ill
Cardiovascular: Regular Rate and S1/S2; Negative Murmur or Rub
Pulmonary: Clear and Symmetric; Negative Wheezes or Rales
Gastrointestinal: Soft, Tender (some abdominal tenderness with mild pressure; no rebound or guarding, no peritoneal signs ), Non Distended and Normal Bowel Sounds
Skin: Warm and Dry; Negative Rash or Jaundice
Objective Data
Lab Data
ESR 38 mm/hour (0-20) H 10/09/23 04:59
PT 17.8 Sec (11.4-14.6) H 09/13/23 03:17
INR 1.49 09/13/23 03:17
APTT Cancelled 10/02/23 12:30
Estimated Creat Clear 85 ml/min 10/20/23 08:52
Lactic Acid 1.5 mmol/L (0.7-2.0) 09/21/23 17:38
Total Bilirubin 1.2 mg/dl (0.2-1.3) 10/09/23 04:59
AST 40 U/L (17-59) 10/09/23 04:59
ALT 48 U/L (0-50) 10/09/23 04:59
Alkaline Phosphatase 177 U/L (38-126) H 10/09/23 04:59
C-Reactive Protein 161.70 mg/L (0.0-10.00) H 10/09/23 04:59
Amylase 252 U/L (30-110) H 10/07/23 04:25
Most recent labs reviewed.
Micro Results:
10/08/23 13:12 Wound Culture - Final
Abscess Pseudomonas aeruginosa
Gram Stain - Final
10/08/23 14:48 Wound Culture - Final
Abscess Pseudomonas aeruginosa
Gram Stain - Final
09/23/23 16:45 Body Fluid Culture - Final
Fluid Sujatha albicans
Gram Stain - Final
09/23/23 16:45 Anaerobic Culture - Final
Abdomen NO ANAEROBES ISOLATED
09/21/23 15:00 Wound Culture - Final
Abdomen Sujatha albicans
Gram Stain - Final
09/21/23 15:00 Anaerobic Culture - Final
Peritoneal Fluid NO ANAEROBES ISOLATED
09/20/23 10:03 Blood Culture - Final
Blood/Venous No Growth - Final Report
09/20/23 10:11 Blood Culture - Final
Blood/Venous No Growth - Final Report
09/12/23 18:05 Blood Culture - Final
Blood/Venous No Growth - Final Report
09/12/23 18:05 Influenza Types A & B (ALAN) - Final
Nasal Swab Negative for Influenza A & B, NAAT
Negative results must be combined with clinical observations
and patient history.
Nucleic Acid Amplification test (NAAT)performed on the
[employer] platform.
Imaging:
09/26/2023 CXR (portable): Persistent bibasilar atelectasis and pleural fluid. Little change from previous exams.
Care Review
Plan reviewed with: Physician (Dr Jose and Dr Webb)
--- NOTE | 2023-10-21 11:00 | WOUNDNOTE ---
WON RN NOTE: Patient still waiting to go to rehab, minimal assistance with appliance change. Patient emptied own pouch and applied wafer and snapped on pouch. Output much thicker today, patient said it was formed yesterday. Dr. Jose aware and
recommended cutting down on Imodium if deems appropriate. Patient confirmed he did receive the [employer] secure start kit. Encouraged patient to try samples when home and if works can order them precut to 07/03' if stoma same size. Supplies at
bedside, nursing can assist with further appliance changes, due Friday. Will sign off.
--- NOTE | 2023-10-21 11:27 | W.PN.NEPH.PH ---
Today's Communication / Plan
-
follow BMP
Assessment/Plan
-
Assessment:
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
s/p Exploratory laparotomy, lysis of adhesions, aorto-mesenteric bypass Tona thrombectomy, mesenteric arteriogram, patch angioplasty of aorto-mesenteric bypass 09/12
s/p 2nd look ex-lap 09/22 Haily ileostomy
GI bleed related to ischemic colitis
Hyponatremia due to SIADH (acute on chronic - baseline Na approx 131-134)
HTN
Moderate COPD/emphysema
CAD s/p prior hx of NSTEMI
Occlusive thrombus left arm
Plan
continue NaCl to 1.5g bid
continue FR
for rehab
follow BMP later this week if dc
can always add lasix as well
await labs today
-
-
Date of Service: October 21, 2023
CC / HPI / ROS
-
Chief Complaint:
hyponatremia
History of Present Illness:
Na stable at 129 yesterday, labs today pending
acute mesenteric ischemia c/b ischemic bowel and necrosis
no fever, BP stable
bp stable on diltiazem
Review of Systems:
no cp or sob
says he is doing better with FR
Labs
-
Labs:
eGFR > 60.00 10/20/23 08:52
Phosphorus 4.5 mg/dl (2.5-4.5) 09/29/23 05:09
Vny-M-Fdgnkdkmate Pept 1080 pg/ml 09/20/23 10:03
Albumin 2.9 g/dl (3.5-5.0) L 10/09/23 04:59
Physical Exam
-
Vital Signs:
Vital Signs
Temp Pulse Resp BP Pulse Ox
98.0 F 102 16 102/61 95
10/21/23 08:34 10/21/23 08:34 10/21/23 08:34 10/21/23 08:34 10/21/23 08:34
Cardiovascular:: Regular rate and rhythm
Respiratory:: Bilateral: Coarse
Lung Excursion:: Normal
Abdomen:: Nontender and Soft
Bowel Sounds:: Normal
Extremity Edema:: None: Bilateral:
[2023-10-21 11:47] LABS: % Basophils 0.6 % (0-2); % Eosinophils 0.4 % (0-6); % Monocytes 12.3 % (1.7-9.3); % Neutrophils 70.7 % (42.2-75.2); Absolute Basophils 0.1 10^3/uL (0-0.2); Absolute Eosinophils 0.1 10^3/uL (0-0.7); Absolute Immature Granulocytes 0.1 10^3/uL (0-0.05); Absolute Lymphocytes 2.1 10^3/uL (1.2-3.4); Absolute Monocytes 1.8 10^3/uL (0.1-0.6); Hemoglobin 9.7 g/dL (13.0-18.0); Mean Corp Hgb Conc. 33.4 g/dL (33.0-37.0); Mean Corpuscular Hgb 29.8 pg (27.0-31.0); Mean Corpuscular Volume 89.2 fL (80.0-94.0); Mean Platelet Volume 8.8 fL (7.4-10.4); Nucleated Red Blood Cells % 0 % (-); Platelet Count 617 10^3/uL (130-400); Red Blood Cell Count 3.25 10^6/uL (4.70-6.10); Red Cell Dist. Width 17.6 % (11.5-14.5); White Blood Cell Count 14.2 10^3/uL (4.8-10.8)
--- NOTE | 2023-10-21 12:08 | CM ---
Transfer on hold, await surgery and ID recommendations.
CT scan and IV anbx switched.
[facility] Approved 8 days Acute Rehab
NRD 10/28/23
Updates to
Questions call P# [phone]
Authorization # [id number]
Plan: [facility] When stable.
[2023-10-21] MEDS: OMNIPAQUE 50 ML PO (12:33)
[2023-10-21] MEDS: ZOSYN 100 IV ×3 (12:49→23:29)
[2023-10-21 12:56] LABS: Blood Urea Nitrogen 8 mg/dl (9-20); Carbon Dioxide 26 mmol/L (22-30); Chloride 97 mmol/L (98-107); Estimated Creatinine Clearance 86 ml/min; Glucose 121 mg/dl (70-99); Sodium 127 mmol/L (135-145); eGFR > 60.00
--- NOTE | 2023-10-21 13:38 | W.PN.CRS1 ---
Today's Communication / Plan
-
CT A/P
Assessment/Plan
-
Assessment: 58-year-old male with complex hospitalization initially presenting with SMA thrombus/occlusion
POD #37 ex lap, SMA graft thrombectomy, patch angioplasty
POD #29 ex lap subtotal colectomy
POD #27 planned relook laparotomy, creation end ileostomy
Plan:
1. On a regular diet with fiber supplement. Continue.
2. Antibiotics per ID. WBC 14.2.
3. Stoma care per wound RN.
4. On Imodium to QID due to liquid stool output.
5. Continue drains.
6. Given rise in WBC/fever, ID has ordered CT A/P. Will follow for results.
Subjective Data
Procedure
09/21/2023- Exploratory laparotomy, subtotal colectomy (takedown of splenic flexure)
09/23/2023- 2nd look laparotomy and ileostomy (reopening of recent laparotomy)
Subjective Data
Date of Service: October 21, 2023
Patient states he has no nausea or vomiting. He has some fullness after eating and has abdominal cramps for about an hour. He denies abdominal pain at rest. He is having formed stools in his bag and has flatus. He has been up and walking. Right now
he states he has the chills.
Objective Data
-
Vital Signs
Temp Pulse Resp BP Pulse Ox
98.0 F 102 16 102/61 95
10/21/23 08:34 10/21/23 08:34 10/21/23 08:34 10/21/23 08:34 10/21/23 08:34
Intake & Output
10/20/23 10/21/23 10/22/23
06:59 06:59 06:59
Intake Total 1045 / 1045 905 / 905
Output Total 1222 / 1222 710 / 710
Balance -177 / -177 195 / 195
Intake:
Oral fluids 1040 / 1040 900 / 900
Amount instilled into Drain (
Total)
Left Upper Abdomen A Placed in
IR
Output:
Liquid stool amount 125 / 125 500 / 500
Ileostomy 125 / 125 500 / 500
Drain Output (Total) 60 / 60
Left Filiberto-Roche B 50 / 50
Left Upper Abdomen A Placed in
IR
Urine, Voided 1050 / 1050 150 / 150
Other:
Number of approximated MODERATE 2
amounts of urine
Lab Results
10/21/23 11:31
10/21/23 11:31
Physical Exam
-
General: No Acute Distress and AOx3
Abdomen: Soft, Non Distended, Non Tender and Other (ileostomy warm and pink with stool in the bag, 2 left sided lexx drains with brown/choe output, thin)
Incision: Clear, Dry, Intact
[2023-10-21 16:15] VITALS: BP 111/68
[2023-10-21] MEDS: ROXICODONE 5 MG PO ×2 (16:21→22:33)
[2023-10-21] MEDS: LASIX 20 MG PO (17:38)
[2023-10-21] MEDS: AMBIEN 5 MG PO (19:38)
[2023-10-21 23:24] VITALS: BP 110/66
[2023-10-21] MEDS: TYLENOL 650 MG PO (23:38)
[2023-10-22 05:36] VITALS: BMI 19.2
[2023-10-22] MEDS: ZOSYN 100 IV ×3 (06:16→17:12)
[2023-10-22 07:00] VITALS: BP 100/59
[2023-10-22 07:43] LABS: Hematocrit 27.1 % (39.0-52.0); Hemoglobin 9.1 g/dL (13.0-18.0); Mean Corp Hgb Conc. 33.6 g/dL (33.0-37.0); Mean Corpuscular Hgb 29.5 pg (27.0-31.0); Platelet Count 570 10^3/uL (130-400); Red Blood Cell Count 3.08 10^6/uL (4.70-6.10); Red Cell Dist. Width 17.3 % (11.5-14.5); White Blood Cell Count 14.9 10^3/uL (4.8-10.8)
[2023-10-22 09:04] LABS: Blood Urea Nitrogen 7 mg/dl (9-20); Calcium 8.4 mg/dl (8.4-10.2); Carbon Dioxide 24 mmol/L (22-30); Chloride 96 mmol/L (98-107); Estimated Creatinine Clearance 87 ml/min; Glucose 96 mg/dl (70-99); Sodium 125 mmol/L (135-145); eGFR > 60.00
[2023-10-22] MEDS: ASPIR LOW (ENTERIC COATED) 81 MG PO (09:52)
[2023-10-22] MEDS: PROTONIX 40 MG PO (09:52)
[2023-10-22] MEDS: SODIUM CHLORIDE 1.5 GRAM PO ×2 (09:53→20:18)
[2023-10-22] MEDS: ELIQUIS 5 MG PO ×2 (09:53→20:19)
[2023-10-22] MEDS: LASIX 20 MG PO (09:54)
[2023-10-22] MEDS: IMODIUM 2 MG PO ×2 (09:54→20:19)
[2023-10-22] MEDS: CARDIZEM CD 120 MG PO (09:55)
--- NOTE | 2023-10-22 11:21 | W.PN.CRS1 ---
Today's Communication / Plan
-
IR for possible drain upsizing
Assessment/Plan
-
Assessment: 58-year-old male with complex hospitalization initially presenting with SMA thrombus/occlusion
POD #38 ex lap, SMA graft thrombectomy, patch angioplasty
POD #30 ex lap subtotal colectomy
POD #28 planned relook laparotomy, creation end ileostomy
Plan:
1. On a regular diet with fiber supplement. Continue.
2. Antibiotics per ID. WBC 14.9.
3. Stoma care per wound RN.
4. On Imodium to QID due to liquid stool output.
5. Continue drains. Consulted IR for possible upsizing of drain today given the left sided fluid collection. Discussed with ID, will send cultures.
6. NPO for IR. Can advance diet post IR.
Subjective Data
Procedure
09/21/2023- Exploratory laparotomy, subtotal colectomy (takedown of splenic flexure)
09/23/2023- 2nd look laparotomy and ileostomy (reopening of recent laparotomy)
Subjective Data
Date of Service: October 22, 2023
Patient states he does not have any abdominal pain. He denies nausea or vomiting. He generally has no complaints.
Objective Data
-
Vital Signs
Temp Pulse Resp BP Pulse Ox
98.3 F 85 18 100/59 96
10/22/23 07:00 10/22/23 09:54 10/22/23 07:00 10/22/23 09:54 10/22/23 07:00
Intake & Output
10/21/23 10/22/23 10/23/23
06:59 06:59 06:59
Intake Total 905 / 905 1740 / 1740
Output Total 710 / 710 1830 / 1830
Balance 195 / 195 -90 / -90
Intake:
Oral fluids 900 / 900 1740 / 1740
Amount instilled into Drain (
Total)
Left Upper Abdomen A Placed in
IR
Output:
Liquid stool amount 500 / 500 800 / 800
Ileostomy 500 / 500 800 / 800
Drain Output (Total) 60 60 80 / 80
Left Filiberto-Roche B 50 / 50 20 / 20
Left Upper Abdomen A Placed in 60
IR
Urine, Voided 150 / 150 950 / 950
Other:
Number of approximated MODERATE 2
amounts of urine
Lab Results
10/22/23 07:17
10/22/23 07:17
Physical Exam
-
General: No Acute Distress and AOx3
Abdomen: Soft, Non Distended, Non Tender and Other (two left sided lexx drains with narayanan output)
Incision: Clear, Dry, Intact
--- NOTE | 2023-10-22 11:56 | W.PN.NEPH.PH ---
Today's Communication / Plan
-
Samsca 15 mg
Maintain fluid restriction salt tablets and Lasix
Follow-up BMP
Assessment/Plan
-
Assessment:
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
s/p Exploratory laparotomy, lysis of adhesions, aorto-mesenteric bypass Tona thrombectomy, mesenteric arteriogram, patch angioplasty of aorto-mesenteric bypass 09/12
s/p 2nd look ex-lap 09/22 Haily ileostomy
GI bleed related to ischemic colitis
Hyponatremia due to SIADH (acute on chronic - baseline Na approx 131-134)
HTN
Moderate COPD/emphysema
CAD s/p prior hx of NSTEMI
Occlusive thrombus left arm
Plan
continue NaCl to 1.5g bid and lasix 20mg daily
continue FR
for rehab
follow BMP later this week if dc
will provide samsca 15mg today as sodium down to 125
-
-
Date of Service: October 22, 2023
CC / HPI / ROS
-
Chief Complaint:
hyponatremia
History of Present Illness:
Na now down to 125
acute mesenteric ischemia c/b ischemic bowel and necrosis
no fever, BP stable
bp stable on diltiazem
Review of Systems:
no cp or sob
says he is doing better with FR
Labs
-
Labs:
WBC 14.9 10^3/uL (4.8-10.8) H 10/22/23 07:17
RBC 3.08 10^6/uL (4.70-6.10) L 10/22/23 07:17
Hgb 9.1 g/dL (13.0-18.0) L 10/22/23 07:17
Hct 27.1 % (39.0-52.0) L 10/22/23 07:17
Plt Count 570 10^3/uL (130-400) H 10/22/23 07:17
Sodium 125 mmol/L (135-145) L 10/22/23 07:17
Potassium 4.0 mmol/L (3.5-5.1) 10/22/23 07:17
Chloride 96 mmol/L (98-107) L 10/22/23 07:17
Carbon Dioxide 24 mmol/L (22-30) 10/22/23 07:17
BUN 7 mg/dl (9-20) L 10/22/23 07:17
Creatinine 0.8 mg/dL (0.7-1.3) 10/22/23 07:17
eGFR > 60.00 10/22/23 07:17
Glucose 96 mg/dl (70-99) 10/22/23 07:17
Calcium 8.4 mg/dl (8.4-10.2) 10/22/23 07:17
Phosphorus 4.5 mg/dl (2.5-4.5) 09/29/23 05:09
Dfx-L-Ctvsmypakeb Pept 1080 pg/ml 09/20/23 10:03
Albumin 2.9 g/dl (3.5-5.0) L 10/09/23 04:59
Physical Exam
-
Vital Signs:
Vital Signs
Temp Pulse Resp BP Pulse Ox
98.3 F 85 18 100/59 96
10/22/23 07:00 10/22/23 09:54 10/22/23 07:00 10/22/23 09:54 10/22/23 08:29
Cardiovascular:: Regular rate and rhythm
Respiratory:: Bilateral: CTA
Lung Excursion:: Normal
Abdomen:: Soft and Tender
Bowel Sounds:: Decreased
Extremity Edema:: None: Bilateral:
Chavez Catheter: No
--- NOTE | 2023-10-22 12:08 | W.PN.HOSP.TC ---
Today's Communication/Plan
-
- with fevers, ongoing leukocytosis repeat CT 10/20: showed persistent fluid collections. For IR evaluation today. Send cultures if further fluid sampled.
- continue IV Abx per ID
Assessment / Plan
Assessment / Plan
Assessment:
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
- s/p Exploratory laparotomy, lysis of adhesions, aorto-mesenteric bypass Tona thrombectomy, mesenteric arteriogram, patch angioplasty of aorto-mesenteric bypass 09/12
- CT-A 09/13 showing patient bypass, concern for bowel ischemia (see below)
Ischemic bowel c/b necrotic bowel
- s/p ex-lap 09/20: Necrotic and perforated entire transverse colon, ischemic right colon and terminal ileum, ischemic left colon, ? ischemia of the proximal jejunum. 70 cm terminal colon with entire right colon, transverse colon and descending colon
removed.
- s/p 2nd look ex-lap 09/22 with Murky fluid throughout the abdomen, viable remaining small intestine with excellent Doppler signals, Haily ileostomy
- CT A/P 10/05 showed collection - s/p IR placement of drain
- with fevers, ongoing leukocytosis repeat CT 10/20: showed persistent fluid collections. For IR evaluation today. Send cultures if further fluid sampled.
- continue IV Abx per ID
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
- Hematology input about hypercoagulable assessments noted -continue with anticoagulant. oncology feels hypercoagulable workup will not change the management as he would need to be on anticoagulation due to his thrombosis. Also does not feel the
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 Follow-up PCP upon discharge.
Hyponatremia
- monitor BMP
- on OFR and salt tabs
- Samsca today
Ventilator dependent respiratory failure/acute hypoxic respiratory failure--resolved
- extubated 09/26
- Oxygenating well on room air
Post-op shock - multifactorial from sepsis/blood loss
- pressors weaned 09/26;Hemodynamics stable
- Echo normal EF
Delirium -post op -suspected TME. Off precedex.
- resolved
GI bleed related to ischemic colitis
Acute blood loss anemia
- monitor Hb -stable
- last unit given 09/27
- continue PPI
HTN - elevated BP noted. pt not a known HTN - Cardizem initiated. Uptitrate as needed. Blood pressure mostly under goal.
Moderate COPD/emphysema - Off of steroids taper for flare.
CAD s/p prior hx of NSTEMI - asymptomatic without chest pain. On aspirin at home.
Hyperbilirubinemia- mostly indirect elevation, possible Gilbert's + hematomas related. Continue to follow.
Abnormal LFTs - improved after TPN stopped
Hx of DVT status post apixaban 03/2021 post left knee surgery
Chronic back pain - recent steroid taper. Continued mid back pain which is a equally troubling. No sciatica . plain xrays show loss of height of superior endplate t12,l4 . Pt had pull while lifting something at home but no fall or trauma. continue
symptomatic tx
Hyperglycemia
No hx of DM
- HbA1C 5.8, close follow-up as an outpatient
- was on high doses of insulin due to combination of steroid use and TPN.
- continue SSI for now
Tobacco abuse [employer]LL[employer]
Nutrition - on oral diet
Occlusive thrombus left arm - throughout the cephalic vein in the forearm, antecubital fossa, and distal aspect of the upper arm
- continue anticoagulation, on Eliquis
DVT ppx: Eliquis
Code: Full
Anticipated Discharge: > 48 hours
Subjective/Interval History
-
Date of Service: October 22, 2023
Patient states he does not have any abdominal pain. He denies nausea or vomiting. He generally has no complaints.
febrile with rising leukocytosis
for IR drain assessment with possible manipulation today
Objective Data
-
Labs:
Laboratory Results
10/22/23
07:17
WBC 14.9 H
Hgb 9.1 L
Hct 27.1 L
Plt Count 570 H
Sodium 125 L
Potassium 4.0
Chloride 96 L
Carbon Dioxide 24
BUN 7 L
Creatinine 0.8
Glucose 96
Calcium 8.4
Vital Signs:
Vital Signs
Temp Pulse Resp BP Pulse Ox
98.3 F 85 18 100/59 96
10/22/23 07:00 10/22/23 09:54 10/22/23 07:00 10/22/23 09:54 10/22/23 08:29
I&O
10/21/23 10/22/23 10/23/23
06:59 06:59 06:59
Intake Total 905 / 905 1740 / 1740
Output Total 710 / 710 1830 / 1830
Balance 195 / 195 -90 / -90
Physical Exam
-
General: No Apparent Distress
HEENT: Normocephalic and Atraumatic
Respiratory: Negative Wheezes or Rales
Cardiac: Regular Rhythm and S1/S2
GI: Soft and Other (drains)
Genito-urinary: No Costovertebral Tender
Neuro: AO x 3
Psych: Calm
Data Reviewed
-
Total Time Spent with Patient (in minutes): 41
Labs: Labs Reviewed by me
[2023-10-22] MEDS: SAMSCA 15 MG PO (12:29)
[2023-10-22 14:43] VITALS: BP 91/57; BP_SYST 86
[2023-10-22 15:00] VITALS: BP 100/64
[2023-10-22 15:34] VITALS: BP 105/65
--- NOTE | 2023-10-22 16:52 | CM ---
met with patient at bedside.he spiked a temp last night and this am.he will have his drain repositioned or another drain placed.hopefully he can go to [facility] this friday or may have to wait until next week.i spoke with thalia at [facility] to update
her.auth has been obtained.Plan:[facility] when stable for discharge.
[2023-10-22] MEDS: AMBIEN 5 MG PO (20:19)
[2023-10-22] MEDS: ROXICODONE 5 MG PO (20:23)
[2023-10-22] MEDS: METAMUCIL, KONSYL 1 PACKET PO (21:02)
[2023-10-22] MEDS: DIFLUCAN 200 MG PO (21:03)
[2023-10-22 22:55] VITALS: BP 102/60
[2023-10-23] MEDS: ZOSYN 100 IV ×5 (00:22→23:10)
[2023-10-23 05:26] VITALS: BMI 18.6
[2023-10-23 07:30] VITALS: BP 98/62
[2023-10-23 08:29] LABS: % Basophils 0.7 % (0-2); % Eosinophils 2.4 % (0-6); % Monocytes 16.3 % (1.7-9.3); % Neutrophils 57.6 % (42.2-75.2); Absolute Basophils 0.1 10^3/uL (0-0.2); Absolute Eosinophils 0.2 10^3/uL (0-0.7); Absolute Immature Granulocytes 0.1 10^3/uL (0-0.05); Absolute Monocytes 1.5 10^3/uL (0.1-0.6); Absolute Neutrophils 5.2 10^3/uL (1.4-6.5); Hematocrit 29.8 % (39.0-52.0); Hemoglobin 9.9 g/dL (13.0-18.0); Mean Corp Hgb Conc. 33.2 g/dL (33.0-37.0); Mean Corpuscular Hgb 29.5 pg (27.0-31.0); Mean Corpuscular Volume 88.7 fL (80.0-94.0); Nucleated Red Blood Cells % 0.2 % (-); Platelet Count 651 10^3/uL (130-400); Red Blood Cell Count 3.36 10^6/uL (4.70-6.10); Red Cell Dist. Width 17.9 % (11.5-14.5); White Blood Cell Count 9.1 10^3/uL (4.8-10.8)
[2023-10-23 09:00] LABS: Blood Urea Nitrogen 4 mg/dl (9-20); Carbon Dioxide 30 mmol/L (22-30); Chloride 103 mmol/L (98-107); Estimated Creatinine Clearance 84 ml/min; Glucose 121 mg/dl (70-99); Potassium 4.2 mmol/L (3.5-5.1); Sodium 135 mmol/L (135-145); eGFR > 60.00
[2023-10-23] MEDS: SODIUM CHLORIDE 1.5 GRAM PO ×2 (09:10→21:05)
[2023-10-23] MEDS: PROTONIX 40 MG PO (09:11)
[2023-10-23] MEDS: ASPIR LOW (ENTERIC COATED) 81 MG PO (09:13)
[2023-10-23] MEDS: ELIQUIS 5 MG PO ×2 (09:13→21:05)
[2023-10-23] MEDS: IMODIUM 2 MG PO ×2 (09:14→21:05)
--- NOTE | 2023-10-23 10:21 | W.PN.CRS1 ---
Today's Communication / Plan
-
okay for d/c from our perspective
continue drains
Assessment/Plan
-
Assessment: 58-year-old male with complex hospitalization initially presenting with SMA thrombus/occlusion
POD #39 ex lap, SMA graft thrombectomy, patch angioplasty
POD #31 ex lap subtotal colectomy
POD #29 planned relook laparotomy, creation end ileostomy
POD#1 IR drain upsizing
Plan:
1. On a regular diet with fiber supplement. Continue.
2. Antibiotics per ID. WBC normalized to 9.1.
3. Stoma care per wound RN.
4. On Imodium to QID due to liquid stool output.
5. Continue drains. Will need a drain study as an outpatient - will be ordered at post op appointment.
6. Okay for discharge today from our perspective. Will need follow up in the office in 2 weeks.
Subjective Data
Procedure
09/21/2023- Exploratory laparotomy, subtotal colectomy (takedown of splenic flexure)
09/23/2023- 2nd look laparotomy and ileostomy (reopening of recent laparotomy)
Subjective Data
Date of Service: October 23, 2023
Patient states he feels 'okay'. He denies nausea or vomiting. He is walking the halls. He has no complaints.
Objective Data
-
Vital Signs
Temp Pulse Resp BP Pulse Ox
98.3 F 82 18 98/62 96
10/23/23 07:30 10/23/23 07:30 10/23/23 07:30 10/23/23 07:30 10/23/23 07:30
Intake & Output
10/22/23 10/23/23 10/24/23
06:59 06:59 06:59
Intake Total 1740 / 1740 1435 / 1435
Output Total 1830 / 1830 2835 / 2835
Balance -90 / -90 -1400 / -1400
Intake:
Oral fluids 1740 / 1740 1160 / 1160
IV fluids (Total)
IV piggybacks 200 / 200
Amount instilled into Drain (
Total)
Left Upper Abdomen A Placed in
IR
Output:
Liquid stool amount 800 / 800 650 / 650
Ileostomy 800 / 800 650 / 650
Drain Output (Total) 80 / 80 310 / 310
Left Filiberto-Roche B 125 / 125
Left Upper Abdomen A Placed in 185 / 185
IR
Urine, Voided 950 / 950 1875 / 1875
Lab Results
10/23/23 07:50
10/23/23 07:50
Physical Exam
-
General: No Acute Distress and AOx3
Abdomen: Soft, Non Distended, Non Tender and Other (two left sided drains with brown thick output)
Skin: Warm and Dry
Incision: Clear, Dry, Intact
[2023-10-23] MEDS: CARDIZEM CD 120 MG PO (12:36)
[2023-10-23] MEDS: LASIX PO (12:36)
--- NOTE | 2023-10-23 12:39 | W.PN.ID1 ---
Date of Service
Date of Service: October 23, 2023
Today's Communication
- continue zosyn another 2 weeks (through 11/06) then will retry suppression with levaquin
- weekly cbc/cmp while on IV antibiotics
- continue fluconazole indefinitely as suppression
Assessment / Plan
Sujahta peritonitis
Leukocytosis
Total SMA graft occlusion
- s/p thrombectomy (performed through prior graft) & patch repair
Hx medication noncompliance
Total splenic infarction
Recommendations:
- continue zosyn another 2 weeks (through 11/06) then will retry suppression with levaquin
- weekly cbc/cmp while on IV antibiotics
- midline
- continue fluconazole indefinitely as suppression
- QTc remains acceptable
- complete splenic infarction
- patient will need post splenectomy vaccines as an outpatient; will arrange these through my office
- stable for discharge, follow up in my office
����������������������������������������������������������
Chief Complaint
-: Leukocytosis and Other (secondary peritonitis)
Subjective / Review of Systems
afebrile
bp stable
leukocytosis has resolved
cr stable
c diff was negative
drain upsized
no complaints
Vital Signs / Physical Exam
Vital Signs
Vital Signs
Temp Pulse Resp BP Pulse Ox
98.3 F 82 18 98/62 96
10/23/23 07:30 10/23/23 07:30 10/23/23 07:30 10/23/23 07:30 10/23/23 08:20
Physical Exam
Constitutional: No Acute Distress
Cardiovascular: Regular Rate and S1/S2; Negative Murmur or Rub
Pulmonary: Clear and Symmetric; Negative Wheezes or Rales
Gastrointestinal: Soft, Non Tender, Non Distended and Normal Bowel Sounds
Skin: Warm and Dry; Negative Rash or Jaundice
Lines: Other (drain feculent output)
Objective Data
Lab Data
Lab Results
10/23/23 07:50
10/23/23 07:50
ESR 38 mm/hour (0-20) H 10/09/23 04:59
PT 17.8 Sec (11.4-14.6) H 09/13/23 03:17
INR 1.49 09/13/23 03:17
APTT Cancelled 10/02/23 12:30
Estimated Creat Clear 84 ml/min 10/23/23 07:50
Lactic Acid 1.5 mmol/L (0.7-2.0) 09/21/23 17:38
Total Bilirubin 1.2 mg/dl (0.2-1.3) 10/09/23 04:59
AST 40 U/L (17-59) 10/09/23 04:59
ALT 48 U/L (0-50) 10/09/23 04:59
Alkaline Phosphatase 177 U/L (38-126) H 10/09/23 04:59
C-Reactive Protein 161.70 mg/L (0.0-10.00) H 10/09/23 04:59
Amylase 252 U/L (30-110) H 10/07/23 04:25
Most recent labs reviewed.
Micro Results:
10/22/23 20:37 Wound Culture - Pending
Filiberto Roche Gram Stain - Pending
10/21/23 13:41 C. difficile GDH Antigen & Toxins - Final
Feces/Stool Negative for toxigenic C.difficile
10/08/23 13:12 Wound Culture - Final
Abscess Pseudomonas aeruginosa
Gram Stain - Final
10/08/23 14:48 Wound Culture - Final
Abscess Pseudomonas aeruginosa
Gram Stain - Final
09/23/23 16:45 Body Fluid Culture - Final
Fluid Sujatha albicans
Gram Stain - Final
09/23/23 16:45 Anaerobic Culture - Final
Abdomen NO ANAEROBES ISOLATED
03/24/24 15:00 Wound Culture - Final
Abdomen Sujatha albicans
Gram Stain - Final
09/21/23 15:00 Anaerobic Culture - Final
Peritoneal Fluid NO ANAEROBES ISOLATED
09/20/23 10:03 Blood Culture - Final
Blood/Venous No Growth - Final Report
09/20/23 10:11 Blood Culture - Final
Blood/Venous No Growth - Final Report
09/12/23 18:05 Blood Culture - Final
Blood/Venous No Growth - Final Report
09/12/23 18:05 Influenza Types A & B (ALAN) - Final
Nasal Swab Negative for Influenza A & B, NAAT
Negative results must be combined with clinical observations
and patient history.
Nucleic Acid Amplification test (NAAT)performed on the
[employer] platform.
Imaging:
09/26/2023 CXR (portable): Persistent bibasilar atelectasis and pleural fluid. Little change from previous exams.
Care Review
Plan reviewed with: Physician (Dr Rader)
--- NOTE | 2023-10-23 14:59 | W.PN.HOSP.TC ---
Today's Communication/Plan
-
dc home in 24 hours with home IV Abx via [facility]
Assessment / Plan
Assessment / Plan
Assessment:
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
- s/p Exploratory laparotomy, lysis of adhesions, aorto-mesenteric bypass Tona thrombectomy, mesenteric arteriogram, patch angioplasty of aorto-mesenteric bypass 09/12
- CT-A 09/13 showing patient bypass, concern for bowel ischemia (see below)
Ischemic bowel c/b necrotic bowel
- s/p ex-lap 09/20: Necrotic and perforated entire transverse colon, ischemic right colon and terminal ileum, ischemic left colon, ? ischemia of the proximal jejunum. 70 cm terminal colon with entire right colon, transverse colon and descending colon
removed.
- s/p 2nd look ex-lap 09/22 with Murky fluid throughout the abdomen, viable remaining small intestine with excellent Doppler signals, Haily ileostomy
- CT A/P 10/05 showed collection - s/p IR placement of drain
- with fevers, ongoing leukocytosis repeat CT 10/20: showed persistent fluid collections. IR upsized the drains.
- continue IV Abx per ID with midline and home discharge
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
- Hematology input about hypercoagulable assessments noted -continue with anticoagulant. oncology feels hypercoagulable workup will not change the management as he would need to be on anticoagulation due to his thrombosis. Also does not feel the
need to follow with the fire safety director. Follow-up PCP upon discharge.
Hyponatremia
- monitor BMP
- on OFR and salt tabs
- Samsca given yesterday and Na 125 today
Ventilator dependent respiratory failure/acute hypoxic respiratory failure--resolved
- extubated 09/26
- Oxygenating well on room air
Post-op shock - multifactorial from sepsis/blood loss
- pressors weaned 09/26; Hemodynamics stable
- Echo normal EF
Delirium -post op -suspected TME. Off precedex.
- resolved
GI bleed related to ischemic colitis
Acute blood loss anemia
- monitor Hb -stable
- last unit given 09/27
- continue PPI
HTN - elevated BP noted. pt not a known HTN - Cardizem initiated. Uptitrate as needed. Blood pressure mostly under goal.
Moderate COPD/emphysema - Off of steroids taper for flare.
CAD s/p prior hx of NSTEMI - asymptomatic without chest pain. On aspirin at home.
Hyperbilirubinemia- mostly indirect elevation, possible Gilbert's + hematomas related. Continue to follow.
Abnormal LFTs - improved after TPN stopped
Hx of DVT status post apixaban 03/2021 post left knee surgery
Chronic back pain - recent steroid taper. Continued mid back pain which is a equally troubling. No sciatica . plain xrays show loss of height of superior endplate t12,l4 . Pt had pull while lifting something at home but no fall or trauma. continue
symptomatic tx
Hyperglycemia
No hx of DM
- HbA1C 5.8, close follow-up as an outpatient
- was on high doses of insulin due to combination of steroid use and TPN.
- continue SSI for now
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
Nutrition - on oral diet
Occlusive thrombus left arm - throughout the cephalic vein in the forearm, antecubital fossa, and distal aspect of the upper arm
- continue anticoagulation, on Eliquis
DVT ppx: Eliquis
Code: Full
Anticipated Discharge: Within 24 hours
Subjective/Interval History
-
Date of Service: October 23, 2023
denied from [place] and desires a home discharge
Objective Data
-
Labs:
Laboratory Results
10/23/23
07:50
WBC 9.1
Hgb 9.9 L
Hct 29.8 L
Plt Count 651 H
Sodium 135 D
Potassium 4.2
Chloride 103
Carbon Dioxide 30
BUN 4 L
Creatinine 0.8
Glucose 121 H
Calcium 9.0
Vital Signs:
Vital Signs
Temp Pulse Resp BP Pulse Ox
98.3 F 86 18 107/72 96
10/23/23 07:30 10/23/23 12:36 10/23/23 07:30 10/23/23 12:36 10/23/23 08:20
I&O
10/22/23 10/23/23 10/24/23
06:59 06:59 06:59
Intake Total 1740 / 1740 1435 / 1435
Output Total 1830 / 1830 2835 / 2835
Balance -90 / -90 -1400 / -1400
Physical Exam
-
General: No Apparent Distress
HEENT: Normocephalic and Atraumatic
Respiratory: Negative Wheezes
Cardiac: Regular Rhythm and S1/S2
GI: Soft and Nontender
Genito-urinary: No Costovertebral Tender
Neuro: AO x 3
Hematologic / Lymphatic: No Lymphadenopathy
Psych: Calm
Data Reviewed
-
Total Time Spent with Patient (in minutes): 41
Labs: Labs Reviewed by me
--- NOTE | 2023-10-23 15:16 | W.PN.NEPH.PH ---
Today's Communication / Plan
-
Observe on Lasix fluid restriction and salt
Assessment/Plan
-
Assessment:
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
s/p Exploratory laparotomy, lysis of adhesions, aorto-mesenteric bypass Tona thrombectomy, mesenteric arteriogram, patch angioplasty of aorto-mesenteric bypass 09/12
s/p 2nd look ex-lap 09/22 Haily ileostomy
GI bleed related to ischemic colitis
Hyponatremia due to SIADH (acute on chronic - baseline Na approx 131-134)
HTN
Moderate COPD/emphysema
CAD s/p prior hx of NSTEMI
Occlusive thrombus left arm
Plan
continue NaCl to 1.5g bid and lasix 20mg daily
continue FR
Samsca provided yesterday with appropriate response with a serum sodium level up to 135
Patient likely will be discharged home tomorrow will need follow-up BMP and follow-up with PCP next week
-
-
Date of Service: October 23, 2023
CC / HPI / ROS
-
Chief Complaint:
hyponatremia
History of Present Illness:
Na up to 135 after Samsca administered
acute mesenteric ischemia c/b ischemic bowel and necrosis
no fever, BP stable
bp stable on diltiazem
Review of Systems:
no cp or sob
says he is doing better with FR
Labs
-
Labs:
WBC 9.1 10^3/uL (4.8-10.8) 10/23/23 07:50
RBC 3.36 10^6/uL (4.70-6.10) L 10/23/23 07:50
Hgb 9.9 g/dL (13.0-18.0) L 10/23/23 07:50
Hct 29.8 % (39.0-52.0) L 10/23/23 07:50
Plt Count 651 10^3/uL (130-400) H 10/23/23 07:50
Sodium 135 mmol/L (135-145) D 10/23/23 07:50
Potassium 4.2 mmol/L (3.5-5.1) 10/23/23 07:50
Chloride 103 mmol/L (98-107) 10/23/23 07:50
Carbon Dioxide 30 mmol/L (22-30) 10/23/23 07:50
BUN 4 mg/dl (9-20) L 10/23/23 07:50
Creatinine 0.8 mg/dL (0.7-1.3) 10/23/23 07:50
eGFR > 60.00 10/23/23 07:50
Glucose 121 mg/dl (70-99) H 10/23/23 07:50
Calcium 9.0 mg/dl (8.4-10.2) 10/23/23 07:50
Phosphorus 4.5 mg/dl (2.5-4.5) 09/29/23 05:09
Zzk-Z-Wwugarvzclk Pept 1080 pg/ml 09/20/23 10:03
Albumin 2.9 g/dl (3.5-5.0) L 10/09/23 04:59
Physical Exam
-
Vital Signs:
Vital Signs
Temp Pulse Resp BP Pulse Ox
98.3 F 86 18 107/72 96
10/23/23 07:30 10/23/23 12:36 10/23/23 07:30 10/23/23 12:36 10/23/23 08:20
Respiratory:: Bilateral: CTA
Lung Excursion:: Normal
Abdomen:: Nontender and Soft
Bowel Sounds:: Normal
Extremity Edema:: None: Bilateral:
Chavez Catheter: No
[2023-10-23 15:30] VITALS: BP 124/74
--- NOTE | 2023-10-23 15:36 | CM ---
Patient cleared for d/c to [facility] today.
[facility] unable to accept patient due to functional level.
Discussed options with patient.
Patient would prefer home with IV anbx and VN.
Discussed options and [facility] and [facility].
Referral to [facility] placed.
TC to [facility] from [facility].
Await script to send to [facility].
Goal is home tomorrow on Iv anbx.
Plan: home with VN and IV anbx.
[2023-10-23] MEDS: ROXICODONE 5 MG PO ×2 (17:04→21:07)
[2023-10-23] MEDS: METAMUCIL, KONSYL 1 PACKET PO (21:04)
[2023-10-23] MEDS: AMBIEN 5 MG PO (21:05)
[2023-10-23] MEDS: DIFLUCAN 200 MG PO (21:05)
[2023-10-23 23:14] VITALS: BP 121/70
[2023-10-24] MEDS: ZOSYN 100 IV ×3 (05:09→17:03)
[2023-10-24 06:19] LABS: % Basophils 0.4 % (0-2); % Eosinophils 3.5 % (0-6); % Immature Granulocytes 0.8 % (0-0.5); % Lymphocytes 21.4 % (20.5-51.1); % Monocytes 13.2 % (1.7-9.3); % Neutrophils 60.7 % (42.2-75.2); Absolute Basophils 0.1 10^3/uL (0-0.2); Absolute Eosinophils 0.4 10^3/uL (0-0.7); Absolute Immature Granulocytes 0.1 10^3/uL (0-0.05); Absolute Lymphocytes 2.5 10^3/uL (1.2-3.4); Absolute Monocytes 1.6 10^3/uL (0.1-0.6); Absolute Neutrophils 7.2 10^3/uL (1.4-6.5); Hematocrit 27.2 % (39.0-52.0); Hemoglobin 9.1 g/dL (13.0-18.0); Mean Corp Hgb Conc. 33.5 g/dL (33.0-37.0); Mean Corpuscular Hgb 29.7 pg (27.0-31.0); Mean Corpuscular Volume 88.9 fL (80.0-94.0); Mean Platelet Volume 8.9 fL (7.4-10.4); Nucleated Red Blood Cells % 0.2 % (-); Platelet Count 544 10^3/uL (130-400); Red Blood Cell Count 3.06 10^6/uL (4.70-6.10); Red Cell Dist. Width 17.7 % (11.5-14.5); White Blood Cell Count 11.9 10^3/uL (4.8-10.8)
[2023-10-24 06:50] LABS: Blood Urea Nitrogen 3 mg/dl (9-20); Calcium 8.8 mg/dl (8.4-10.2); Carbon Dioxide 26 mmol/L (22-30); Chloride 101 mmol/L (98-107); Estimated Creatinine Clearance 96 ml/min; Glucose 111 mg/dl (70-99); Potassium 3.8 mmol/L (3.5-5.1); Sodium 132 mmol/L (135-145); eGFR > 60.00
[2023-10-24 07:30] VITALS: BP 114/82
--- NOTE | 2023-10-24 08:27 | CM ---
Addendum entered by Migdalia Schneider 10/24/23 16:03:
Tremaine from [facility] here to do IV anbx teaching.
medications to be delivered to home.
Plan: d/c home today after 5 pm dose of medication.
ex-spouse will transport.
[facility]

Be LAU

Original Note:
Clinicals, script and Midline info faxed to [facility] F#[phone].
Await costs and acceptance.
Be LAU to follow for wound care and therapy.
Plan: Home with IV anbx once accepted by infusion company and VN.
[2023-10-24] MEDS: CARDIZEM CD 120 MG PO (09:12)
[2023-10-24] MEDS: IMODIUM 2 MG PO (09:12)
[2023-10-24] MEDS: PROTONIX 40 MG PO (09:14)
[2023-10-24] MEDS: ELIQUIS 5 MG PO (09:14)
[2023-10-24] MEDS: LASIX 20 MG PO ×2 (09:14→17:02)
[2023-10-24] MEDS: SODIUM CHLORIDE 1.5 GRAM PO (09:14)
[2023-10-24] MEDS: ASPIR LOW (ENTERIC COATED) 81 MG PO (09:15)
--- NOTE | 2023-10-24 12:08 | W.PN.ID1 ---
Date of Service
Date of Service: October 24, 2023
Today's Communication
Continue antibiotics.
Assessment / Plan
Sujatha peritonitis
Leukocytosis
Total SMA graft occlusion
- s/p thrombectomy (performed through prior graft) & patch repair
Hx medication noncompliance
Total splenic infarction
Recommendations:
- continue zosyn another 2 weeks (through 11/06) then will retry suppression with levaquin
- weekly cbc/cmp while on IV antibiotics
- midline
- continue fluconazole indefinitely as suppression
- QTc remains acceptable
- complete splenic infarction
- patient will need post splenectomy vaccines as an outpatient; will arrange these through my office
- stable for discharge, follow up in ID office
����������������������������������������������������������
Chief Complaint
-: Leukocytosis and Other (secondary peritonitis)
Subjective / Review of Systems
Review of Systems: No Fever and No Chills
Vital Signs / Physical Exam
Vital Signs
Vital Signs
Temp Pulse Resp BP Pulse Ox
97.9 F 89 18 114/82 96
10/24/23 07:30 10/24/23 09:12 10/24/23 07:30 10/24/23 09:12 10/24/23 08:58
Physical Exam
Constitutional: No Acute Distress and Comfortable
Eyes: Sclera Anicteric
Pulmonary: Non Labored
Gastrointestinal: Non Distended and Other (Ostomy in place)
Skin: Negative Rash or Jaundice
Neurological: Awake and Alert
Psychological: Calm
Objective Data
Lab Data
Lab Results
10/24/23 05:51
10/24/23 05:51
ESR 38 mm/hour (0-20) H 10/09/23 04:59
PT 17.8 Sec (11.4-14.6) H 09/13/23 03:17
INR 1.49 09/13/23 03:17
APTT Cancelled 10/02/23 12:30
Estimated Creat Clear 96 ml/min 10/24/23 05:51
Lactic Acid 1.5 mmol/L (0.7-2.0) 09/21/23 17:38
Total Bilirubin 1.2 mg/dl (0.2-1.3) 10/09/23 04:59
AST 40 U/L (17-59) 10/09/23 04:59
ALT 48 U/L (0-50) 10/09/23 04:59
Alkaline Phosphatase 177 U/L (38-126) H 10/09/23 04:59
C-Reactive Protein 161.70 mg/L (0.0-10.00) H 10/09/23 04:59
Amylase 252 U/L (30-110) H 10/07/23 04:25
Most recent labs reviewed.
Micro Results:
10/22/23 20:37 Wound Culture - Preliminary
Filiberto Roche Gram negative bacilli
Gram Stain - Preliminary
10/21/23 13:41 C. difficile GDH Antigen & Toxins - Final
Feces/Stool Negative for toxigenic C.difficile
10/08/23 13:12 Wound Culture - Final
Abscess Pseudomonas aeruginosa
Gram Stain - Final
10/08/23 14:48 Wound Culture - Final
Abscess Pseudomonas aeruginosa
Gram Stain - Final
09/23/23 16:45 Body Fluid Culture - Final
Fluid Sujatha albicans
Gram Stain - Final
09/23/23 16:45 Anaerobic Culture - Final
Abdomen NO ANAEROBES ISOLATED
09/21/23 15:00 Wound Culture - Final
Abdomen Sujatha albicans
Gram Stain - Final
09/21/23 15:00 Anaerobic Culture - Final
Peritoneal Fluid NO ANAEROBES ISOLATED
09/20/23 10:03 Blood Culture - Final
Blood/Venous No Growth - Final Report
09/20/23 10:11 Blood Culture - Final
Blood/Venous No Growth - Final Report
09/12/23 18:05 Blood Culture - Final
Blood/Venous No Growth - Final Report
09/12/23 18:05 Influenza Types A & B (ALAN) - Final
Nasal Swab Negative for Influenza A & B, NAAT
Negative results must be combined with clinical observations
and patient history.
Nucleic Acid Amplification test (NAAT)performed on the
moziy platform.
Imaging:
09/26/2023 CXR (portable): Persistent bibasilar atelectasis and pleural fluid. Little change from previous exams.
--- NOTE | 2023-10-24 13:46 | W.PN.NEPH.PH ---
Today's Communication / Plan
-
lasix bid
Assessment/Plan
-
Assessment:
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
s/p Exploratory laparotomy, lysis of adhesions, aorto-mesenteric bypass Tona thrombectomy, mesenteric arteriogram, patch angioplasty of aorto-mesenteric bypass 09/12
s/p 2nd look ex-lap 09/22 Haily ileostomy
GI bleed related to ischemic colitis
Hyponatremia due to SIADH (acute on chronic - baseline Na approx 131-134)
HTN
Moderate COPD/emphysema
CAD s/p prior hx of NSTEMI
Occlusive thrombus left arm
Plan
continue NaCl to 1.5g bid and lasix 20mg BID (increase)
continue FR
OP BMP next week with PCP
-
-
Date of Service: October 24, 2023
CC / HPI / ROS
-
Chief Complaint:
hyponatremia
History of Present Illness:
Na down to 132
acute mesenteric ischemia c/b ischemic bowel and necrosis
no fever, BP stable
bp stable on diltiazem
Review of Systems:
no cp or sob
says he is doing better with FR
Labs
-
Labs:
WBC 11.9 10^3/uL (4.8-10.8) H 10/24/23 05:51
RBC 3.06 10^6/uL (4.70-6.10) L 10/24/23 05:51
Hgb 9.1 g/dL (13.0-18.0) L 10/24/23 05:51
Hct 27.2 % (39.0-52.0) L 10/24/23 05:51
Plt Count 544 10^3/uL (130-400) H 10/24/23 05:51
Sodium 132 mmol/L (135-145) L 10/24/23 05:51
Potassium 3.8 mmol/L (3.5-5.1) 10/24/23 05:51
Chloride 101 mmol/L (98-107) 10/24/23 05:51
Carbon Dioxide 26 mmol/L (22-30) 10/24/23 05:51
BUN 3 mg/dl (9-20) L 10/24/23 05:51
Creatinine 0.7 mg/dL (0.7-1.3) 10/24/23 05:51
eGFR > 60.00 10/24/23 05:51
Glucose 111 mg/dl (70-99) H 10/24/23 05:51
Calcium 8.8 mg/dl (8.4-10.2) 10/24/23 05:51
Phosphorus 4.5 mg/dl (2.5-4.5) 09/29/23 05:09
Ncf-C-Eevhyvnmrkl Pept 1080 pg/ml 09/20/23 10:03
Albumin 2.9 g/dl (3.5-5.0) L 10/09/23 04:59
Physical Exam
-
Vital Signs:
Vital Signs
Temp Pulse Resp BP Pulse Ox
97.9 F 89 18 114/82 96
10/24/23 07:30 10/24/23 09:12 10/24/23 07:30 10/24/23 09:12 10/24/23 08:58
Cardiovascular:: Regular rate and rhythm
Respiratory:: Bilateral: Coarse
Lung Excursion:: Normal
Abdomen:: Nontender and Soft
Bowel Sounds:: Normal
Extremity Edema:: None: Bilateral:
--- NOTE | 2023-10-24 13:59 | W.PN.HOSP.TC ---
Today's Communication/Plan
-
dc to home VN/home infusions today
Assessment / Plan
Assessment / Plan
Assessment:
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
- s/p Exploratory laparotomy, lysis of adhesions, aorto-mesenteric bypass Tona thrombectomy, mesenteric arteriogram, patch angioplasty of aorto-mesenteric bypass 09/12
- CT-A 09/13 showing patient bypass, concern for bowel ischemia (see below).
Ischemic bowel c/b necrotic bowel
- s/p ex-lap 09/20: Necrotic and perforated entire transverse colon, ischemic right colon and terminal ileum, ischemic left colon, ? ischemia of the proximal jejunum. 70 cm terminal colon with entire right colon, transverse colon and descending colon
removed.
- s/p 2nd look ex-lap 09/22 with Murky fluid throughout the abdomen, viable remaining small intestine with excellent Doppler signals, Haily ileostomy
- CT A/P 10/05 showed collection - s/p IR placement of drain
- with fevers, ongoing leukocytosis repeat CT 10/20: showed persistent fluid collections. IR upsized the drains.
- continue IV Zosyn for 2 weeks per ID with midline and home discharge. LAter consider Levaquin.
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
- Hematology input about hypercoagulable assessments noted -continue with anticoagulant. oncology feels hypercoagulable workup will not change the management as he would need to be on anticoagulation due to his thrombosis. Also does not feel the
need to follow with the photo intern. Follow-up PCP upon discharge.
Hyponatremia
- monitor BMP weekly
- dc on OFR and salt tabs/Lasix
- has received [facility] this admit
Ventilator dependent respiratory failure/acute hypoxic respiratory failure--resolved
- extubated 09/26
- Oxygenating well on room air
Post-op shock - multifactorial from sepsis/blood loss
- pressors weaned 09/26; Hemodynamics stable
- Echo normal EF
Delirium -post op -suspected TME. Off Precedex.
- resolved
GI bleed related to ischemic colitis
Acute blood loss anemia
- monitor Hb -stable
- last unit given 09/27
- continue PPI
HTN - elevated BP noted. pt not a known HTN - Cardizem initiated. Up-titrate as needed. Blood pressure mostly under goal.
Moderate COPD/emphysema - Off of steroids taper for flare.
CAD s/p prior hx of NSTEMI - asymptomatic without chest pain. On aspirin at home.
Hyperbilirubinemia- mostly indirect elevation, possible Gilbert's + hematomas related. Continue to follow.
Abnormal LFTs - improved after TPN stopped
Hx of DVT status post apixaban 03/2021 post left knee surgery
Chronic back pain - recent steroid taper. Continued mid back pain which is a equally troubling. No sciatica . plain xrays show loss of height of superior endplate t12,l4 . Pt had pull while lifting something at home but no fall or trauma. continue
symptomatic tx
Hyperglycemia
No hx of DM
- HbA1C 5.8, close follow-up as an outpatient
- was on high doses of insulin due to combination of steroid use and TPN.
- continue SSI for now
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
Nutrition - on oral diet
Occlusive thrombus left arm - throughout the cephalic vein in the forearm, antecubital fossa, and distal aspect of the upper arm
- continue anticoagulation, on Eliquis
DVT ppx: Eliquis
Code: Full
More than 30 minutes spent in discharge including
Final examination of the patient
Summarizing hospital stay
Instructions for continuing care to all relevant caregivers
Preparation of discharge records, prescriptions, and referral forms
Total time spent (in minutes): 42
Anticipated Discharge: Today
Subjective/Interval History
-
Date of Service: October 24, 2023
completed infusion teaching
no complaints
Objective Data
-
Labs:
Laboratory Results
10/24/23
05:51
WBC 11.9 H
Hgb 9.1 L
Hct 27.2 L
Plt Count 544 H
Sodium 132 L
Potassium 3.8
Chloride 101
Carbon Dioxide 26
BUN 3 L
Creatinine 0.7
Glucose 111 H
Calcium 8.8
Vital Signs:
Vital Signs
Temp Pulse Resp BP Pulse Ox
97.9 F 89 18 114/82 96
10/24/23 07:30 10/24/23 09:12 10/24/23 07:30 10/24/23 09:12 10/24/23 08:58
I&O
10/23/23 10/24/23 10/25/23
06:59 06:59 06:59
Intake Total 1435 / 1435 660 / 660
Output Total 2835 / 2835 265 / 265
Balance -1400 / -1400 395 / 395
Physical Exam
-
General: No Apparent Distress
HEENT: Normocephalic and Atraumatic
Respiratory: Negative Wheezes
Cardiac: Regular Rhythm and S1/S2
GI: Soft
Genito-urinary: No Costovertebral Tender
Musculoskeletal: No Edema
Neuro: AO x 3
Hematologic / Lymphatic: No Lymphadenopathy
Psych: Calm
Data Reviewed
-
Total Time Spent with Patient (in minutes): 42
Labs: Labs Reviewed by me
--- NOTE | 2023-10-24 14:11 | W.DS.TRANS ---
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
-
Discharge Instructions:
Discharge Diagnosis/Procedures Acute mesenteric ischemia secondary to
mesenteric bypass thrombosis s/p thrombectomy
and bypass 09/12, complicatd by ischemic bowel
requiring colon surgery 09/20, 09/22 with ostomy
creation and abdominal drains. IV abx for
infections.
Diet Regular,Restrict fluids to 48 oz
Additional Diets Daily fiber supplement.
Activity No strenuous activity
Additional Activity No lifting over 10lbs (gallon of milk)
Driving Restrictions Not until seen by your Dr
Bathing Restrictions OK to Shower
Instructions: Psyllium
How to Keep Track of Your Drainage
Stand-Alone Forms:
Changes to Home Medications: No
Discharge Medications:
DC Medications w/original date entered in [employer]
aspirin 81 mg tablet,delayed release 81 mg PO DAILY Blood Clot Prevention/Tx 09/12/23
apixaban 5 mg tablet (Eliquis) 5 mg PO BID #60 tabs 10/24/23
diltiazem HCl 120 mg capsule,extended release 24 hr (Cartia XT) 120 mg PO DAILY #30 caps 10/24/23
fluconazole 200 mg tablet 200 mg PO HS #30 tabs 10/24/23
furosemide 20 mg tablet 20 mg PO BID AT 0800,1600 #60 tabs 10/24/23
loperamide 2 mg capsule 2 mg PO BID #60 caps 10/24/23
oxycodone 5 mg tablet 5 mg PO Q4HPRN PRN Moderate pain #30 tabs 10/24/23
pantoprazole 40 mg tablet,delayed release 40 mg PO DAILY #30 tabs 10/24/23
piperacillin-tazobactam 4.5 gram/100 mL dextrose(iso-osm) IV piggyback (Zosyn) 4.5 g (112.5 mL) IV Q6H #1,200 mL 10/24/23
psyllium husk (aspartame) 3.4 gram oral powder packet (Metamucil Fiber Singles) 1 packet PO HS #30 ea 10/24/23
sodium chloride 1,000 mg soluble tablet 1,500 mg (1.5 x 1,000 mg) PO BID #180 tabs 10/24/23
zolpidem 5 mg tablet 5 mg PO DAILY@2000 #30 tabs 10/24/23
Home Medication Changes
Pending Results: No
Total time spent discharging patient (in min): 42
[2023-10-24 15:30] VITALS: BP 118/80
== END 2023-10-24 18:44 | disposition home health service (06) | DRG 270 ==
LOC: 4 WEST ACU 20:39
PROVIDERS: Internal Medicine; Internal Medicine Critical Care Medicine; Nurse Practitioner; Nurse Practitioner Acute Care; Nurse Practitioner Family; Physician Assistant; Physician Assistant Medical; Radiology Diagnostic Radiology; Radiology Vascular & Interventional Radiology; Specialist; Student in an Organized Health Care Education/Training Program; Surgery; Surgery Vascular Surgery; ADMITTING PHYSICIAN Internal Medicine; ATTENDING PHYSICIAN Internal Medicine; CONSULT PHYSICIAN Internal Medicine Gastroenterology; CONSULT PHYSICIAN Physical Medicine & Rehabilitation; CONSULT PHYSICIAN Student in an Organized Health Care Education/Training Program; CONSULT PHYSICIAN Surgery; EMERGENCY PHYSICIAN Emergency Medicine; FAMILY PHYSICIAN Family Medicine; OTHER PHYSICIAN Internal Medicine Critical Care Medicine; OTHER PHYSICIAN Internal Medicine Hematology & Oncology; OTHER PHYSICIAN Specialist; OTHER PHYSICIAN Surgery
PROC: 30233N1 Transfusion of Nonautologous Red Blood Cells into Peripheral Vein, Percutaneous Approach (ICD-10-PCS; 2023-09-12)
PROC: B4141ZZ Fluoroscopy of Superior Mesenteric Artery using Low Osmolar Contrast (ICD-10-PCS; 2023-09-13)
PROC: 04C53ZZ Extirpation of Matter from Superior Mesenteric Artery, Percutaneous Approach (ICD-10-PCS; 2023-09-13)
PROC: 04U Lower Arteries, Supplement (ICD-10-PCS; 2023-09-13)
PROC: 0DN80ZZ Release Small Intestine, Open Approach (ICD-10-PCS; 2023-09-13)
PROC: 3E0436Z Introduction of Nutritional Substance into Central Vein, Percutaneous Approach (ICD-10-PCS; 2023-09-18)
PROC: 02HV33Z Insertion of Infusion Device into Superior Vena Cava, Percutaneous Approach (ICD-10-PCS; 2023-09-18)
PROC: 0DBB0ZZ Excision of Ileum, Open Approach (ICD-10-PCS; 2023-09-21)
PROC: 0BH17EZ Insertion of Endotracheal Airway into Trachea, Via Natural or Artificial Opening (ICD-10-PCS; 2023-09-21)
PROC: 5A1955Z Respiratory Ventilation, Greater than 96 Consecutive Hours (ICD-10-PCS; 2023-09-21)
PROC: 0DTE0ZZ Resection of Large Intestine, Open Approach (ICD-10-PCS; 2023-09-21)
PROC: 0D1B0Z4 Bypass Ileum to Cutaneous, Open Approach (ICD-10-PCS; 2023-09-23)
PROC: 0D9W30Z Drainage of Peritoneum with Drainage Device, Percutaneous Approach (ICD-10-PCS; 2023-10-08)
DX: T82.868A Thrombosis due to vascular prosthetic devices, implants and grafts, initial encounter (principal); A41.9 Sepsis, unspecified organism; K55.019 Acute (reversible) ischemia of small intestine, extent unspecified; K72.00 Acute and subacute hepatic failure without coma; K55.039 Acute (reversible) ischemia of large intestine, extent unspecified; K63.1 Perforation of intestine (nontraumatic); R65.21 Severe sepsis with septic shock; J96.01 Acute respiratory failure with hypoxia; K65.1 Peritoneal abscess; E43 Unspecified severe protein-calorie malnutrition; E87.20 Acidosis, unspecified; D62 Acute posthemorrhagic anemia; E22.2 Syndrome of inappropriate secretion of antidiuretic hormone; J44.1 Chronic obstructive pulmonary disease with (acute) exacerbation; F05 Delirium due to known physiological condition; I82.612 Acute embolism and thrombosis of superficial veins of left upper extremity; T81.10XA Postprocedural shock unspecified, initial encounter; J90 Pleural effusion, not elsewhere classified; B37.89 Other sites of candidiasis; K56.7 Ileus, unspecified; R18.8 Other ascites; Z68.1 Body mass index [BMI] 19.9 or less, adult; I25.10 Atherosclerotic heart disease of native coronary artery without angina pectoris; E78.00 Pure hypercholesterolemia, unspecified; Y83.2 Surgical operation with anastomosis, bypass or graft as the cause of abnormal reaction of the patient, or of later complication, without mention of misadventure at the time of the procedure; R73.9 Hyperglycemia, unspecified; Y83.8 Other surgical procedures as the cause of abnormal reaction of the patient, or of later complication, without mention of misadventure at the time of the procedure; J43.9 Emphysema, unspecified; G47.00 Insomnia, unspecified; F17.210 Nicotine dependence, cigarettes, uncomplicated; I73.9 Peripheral vascular disease, unspecified; K66.0 Peritoneal adhesions (postprocedural) (postinfection); N40.0 Benign prostatic hyperplasia without lower urinary tract symptoms; M54.9 Dorsalgia, unspecified; I10 Essential (primary) hypertension; G89.29 Other chronic pain; D69.6 Thrombocytopenia, unspecified; E80.4 Gilbert syndrome; E83.51 Hypocalcemia; E88.09 Other disorders of plasma-protein metabolism, not elsewhere classified; Z11.52 Encounter for screening for COVID-19; I25.2 Old myocardial infarction; Z79.82 Long term (current) use of aspirin; Z79.899 Other long term (current) drug therapy; Z86.010 Personal history of colon polyps; Z86.718 Personal history of other venous thrombosis and embolism; Z91.148 Patient's other noncompliance with medication regimen for other reason
CPT/HCPCS: 88304; 88307; 36245; 37246; 49406; 70450; 71045; 72100; 74018; 74019; 74174; 74177; 80048; 80053; 80061; 80202; 81003; 82150; 82248; 82330; 82570; 82805; 82962; 83010; 83036; 83605; 83615; 83690; 83735; 83880; 83935; 84100; 84145; 84300; 84439; 84443; 84478; 84550; 85014; 85018; 85025; 85027; 85045; 85610; 85652; 85730; 86140; 86146; 86147; 86148; 86850; 86900; 86901; 86920; 87015; 87040; 87070; 87071; 87075; 87077; 87186; 87205; 87324; 87449; 87502; 87811; 92610; 93005; 93306; 93971; 94002; 94003; 94640; 96361; 96374; 96375; 96376; 97110; 97116; 97129; 97163; 97164; 97167; 97168; 97530; 97535; 99152; 99153; 99291; C1729; C1757; J2997; P9016; P9047; Q9967

== ENCOUNTER → 2023-11-17 13:46 | Outpatient (REF) | payer OTHER, SELFPAY | LOC: RADI 13:46 | PROVIDERS: ATTENDING PHYSICIAN Surgery; FAMILY PHYSICIAN Family Medicine; OTHER PHYSICIAN Student in an Organized Health Care Education/Training Program; REFERRING PHYSICIAN Surgery Vascular Surgery | DX: T85.9XXA Unspecified complication of internal prosthetic device, implant and graft, initial encounter (principal); K65.1 Peritoneal abscess; Y83.8 Other surgical procedures as the cause of abnormal reaction of the patient, or of later complication, without mention of misadventure at the time of the procedure | CPT/HCPCS: 49423; 74177; 75984; C1729; C1769; Q9967 ==

== ENCOUNTER → 2023-11-20 10:09 | Outpatient (REF) | payer OTHER, SELFPAY ==
[2023-11-20 10:24] VITALS: BP 103/90; BP_SYST 112
[2023-11-20] MEDS: MORPHINE SULFATE 1 MG IV (12:00)
[2023-11-20] MEDS: ZOFRAN 4 MG IV (12:00)
[2023-11-20 13:14] VITALS: BP 101/80
== END ==
LOC: RADI 10:09
PROVIDERS: ATTENDING PHYSICIAN Radiology Vascular & Interventional Radiology; FAMILY PHYSICIAN Family Medicine; REFERRING PHYSICIAN Surgery
DX: T81.43XA Infection following a procedure, organ and space surgical site, initial encounter (principal); K65.1 Peritoneal abscess; Y83.8 Other surgical procedures as the cause of abnormal reaction of the patient, or of later complication, without mention of misadventure at the time of the procedure
CPT/HCPCS: 49423; 75984; 99152; 99153; C1729; C1769

== ENCOUNTER 2023-11-21 15:28 | Inpatient (IN) | payer OTHER, SELFPAY ==
[2023-11-21] VITALS (11 sets, daily range): BP systolic 93–105; BP diastolic 67–80; BMI 17.8
[2023-11-21] MEDS: ZOSYN 50 IV (13:40)
[2023-11-21 13:51] LABS: % Basophils 0.5 % (0-2); % Eosinophils 0.3 % (0-6); % Immature Granulocytes 0.8 % (0-0.5); % Lymphocytes 12.6 % (20.5-51.1); % Monocytes 8.5 % (1.7-9.3); % Neutrophils 77.3 % (42.2-75.2); Absolute Basophils 0.1 10^3/uL (0-0.2); Absolute Eosinophils 0.1 10^3/uL (0-0.7); Absolute Immature Granulocytes 0.1 10^3/uL (0-0.05); Absolute Lymphocytes 2.2 10^3/uL (1.2-3.4); Absolute Monocytes 1.5 10^3/uL (0.1-0.6); Absolute Neutrophils 13.4 10^3/uL (1.4-6.5); Hematocrit 36.3 % (39.0-52.0); Hemoglobin 11.8 g/dL (13.0-18.0); Mean Corp Hgb Conc. 32.5 g/dL (33.0-37.0); Mean Corpuscular Hgb 28.7 pg (27.0-31.0); Mean Corpuscular Volume 88.3 fL (80.0-94.0); Mean Platelet Volume 8.6 fL (7.4-10.4); Nucleated Red Blood Cells % 0 % (-); Platelet Count 699 10^3/uL (130-400); Red Blood Cell Count 4.11 10^6/uL (4.70-6.10); Red Cell Dist. Width 18.5 % (11.5-14.5); White Blood Cell Count 17.4 10^3/uL (4.8-10.8)
[2023-11-21 14:09] LABS: ALT (SGPT) 28 U/L (0-50); AST (SGOT) 39 U/L (17-59); Albumin 2.8 g/dl (3.5-5.0); Alkaline Phosphatase 169 U/L (38-126); Blood Urea Nitrogen 7 mg/dl (9-20); Calcium 8.9 mg/dl (8.4-10.2); Carbon Dioxide 24 mmol/L (22-30); Chloride 96 mmol/L (98-107); Estimated Creatinine Clearance 71 ml/min; Glucose 152 mg/dl (70-99); Potassium 4.9 mmol/L (3.5-5.1); Sodium 129 mmol/L (135-145); Total Bilirubin 0.3 mg/dl (0.2-1.3); Total Protein 5.9 g/dl (6.3-8.2); eGFR > 60.00
--- NOTE | 2023-11-21 14:14 | ED.GENMED ---
History of Present Illness
General
Chief Complaint: Abdominal Pain
Source: patient
Exam Limitations: none
Time Seen by Provider: 11/21/23 12:57
Travel History
Have you had any contact with someone who has COVID-19?: No
Do you have any symptoms of coronavirus? Fever > 100 degrees, chills, cough, shortness of breath, sore throat, loss of taste or smell, muscle aches, or headache?: No
History of Present Illness
History of Present Illness:
58-year-old male presents with persistent abdominal pain. He presents in referral from his colorectal surgeon. He had a subtotal colectomy secondary to ischemic bowel. He was left with a fluid collection. He has had a drain in his abdomen that
stopped draining. Had his drain exchanged yesterday but still no further drainage. He notes chills but no measurable fever. No other complaints at this time
Past History
Past History
ED Past Medical History: [place]
ED Past Surgical History: Cardiac (Catheterization)
Social History
Tobacco: Smoker
Alcohol: None
Personal:
Employment: Employed
Phy Exam
Physical Exam
Physical Exam:
General: Uncomfortable appearing male no acute respiratory distress
HEENT: Normocephalic atraumatic neck is supple
Heart: Regular rate and rhythm no murmurs
Lungs: Clear no wheeze or rales
Abdomen: Tender to the mid abdomen ostomy noted with stool in it. Drains noted on left side of abdomen without any fluid.
Extremities: No cyanosis
Skin: Warm no rash
Course
Orders/Labs/Results
Orders:
Orders
11/21/23 13:31
Piperacillin/Tazo 3.375 Gram [Zosyn] 3.375 gram in 50 ml IV NOW
11/21/23 13:39
Complete Blood Count/With Diff Urgent
Comprehensive Metabolic Panel Urgent
Blood Culture Q30M
LEODAN Source: Blood/Venous
Specimen Description:
11/21/23 13:40
Blood Culture Q30M
LEODAN Source: Blood/Venous
Specimen Description:
Abnormal Lab Results
11/21/23
13:39
WBC 17.4 H 10^3/uL
(4.8-10.8)
RBC 4.11 L 10^6/uL
(4.70-6.10)
Hgb 11.8 L g/dL
(13.0-18.0)
Hct 36.3 L %
(39.0-52.0)
MCHC 32.5 L g/dL
(33.0-37.0)
RDW 18.5 H %
(11.5-14.5)
Plt Count 699 H 10^3/uL
(130-400)
Abs Immat Gran (auto) 0.1 H 10^3/uL
(0-0.05)
Absolute Neuts (auto) 13.4 H 10^3/uL
(1.4-6.5)
Absolute Monos (auto) 1.5 H 10^3/uL
(0.1-0.6)
Immature Gran % 0.8 H %
(0-0.5)
Neutrophils % 77.3 H %
(42.2-75.2)
Lymphocytes % 12.6 L %
(20.5-51.1)
Sodium 129 L mmol/L
(135-145)
Chloride 96 L mmol/L
(98-107)
BUN 7 L mg/dl
(9-20)
Glucose 152 H mg/dl
(70-99)
Alkaline Phosphatase 169 H U/L
(38-126)
Total Protein 5.9 L g/dl
(6.3-8.2)
Albumin 2.8 L g/dl
(3.5-5.0)
11/21/23 13:39
11/21/23 13:39
Vital Signs
Initial and Last Documented VS:
Initial Vital Signs
Temp Pulse Resp BP Pulse Ox
98.9 F 112 17 102/72 98
11/21/23 12:33 11/21/23 12:33 11/21/23 12:33 11/21/23 12:33 11/21/23 12:33
Last Documented Vital Signs
Temp Pulse Resp BP Pulse Ox
98.9 F 96 17 101/80 100
11/21/23 12:33 11/21/23 14:00 11/21/23 14:00 11/21/23 14:00 11/21/23 14:00
MDM/Problems Addressed
Differential Diagnosis Includes:
Patient was sent in by colorectal surgery for further treatment of his intra-abdominal fluid collection/abscess. Interventional radiology placed drains are not draining. Will check labs.
Labs reviewed demonstrate white blood cell count of 17.4 which is higher than most recently. Discussed plan with colorectal team. Will admit to hospitalist with colorectal consultation and potential surgical intervention
*Critical Care Note
Total Time (30-74mins, 75-104mins- exclusive of procedures): Not Applicable
ED Attending Note
-
Portions of this chart may have been created with voice recognition software.� Occasional wrong word or��sound alike� substitutions may have occurred due to the inherent limitations of voice recognition software.
Discharge Plan
Departure
Patient Disposition: Admit
Date of Disposition: 11/21/23
Time of Disposition: 14:18
Presentation/result/management discussed w/ accepting MD/DO: Hospitalist
Discharge Problem:
Abdominal abscess
Prescriptions:
No Action
aspirin 81 mg Tablet,Delayed Release (Dr/Ec)
81 mg PO DAILY
fluconazole 200 mg Tablet
200 mg PO HS Qty: 30 0RF
loperamide 2 mg Capsule
2 mg PO BID Qty: 60 0RF
pantoprazole 40 mg Tablet,Delayed Release (Dr/Ec)
40 mg PO DAILY Qty: 30 0RF
diltiazem HCl [Cartia XT] 120 mg Capsule,Extended Release 24hr
120 mg PO DAILY Qty: 30 0RF
oxycodone 5 mg Tablet
5 mg PO Q4HPRN PRN (Reason: Moderate pain) Qty: 30 0RF
Metamucil Fiber Singles 3.4 gram Powder In Packet
1 packet PO HS Qty: 30 0RF
Eliquis 5 mg Tablet
5 mg PO BID Qty: 60 0RF
levofloxacin [Levaquin] 750 mg Tablet
750 mg PO DAILY
zolpidem 5 mg tablet
5 mg PO HS
sodium chloride 1,000 mg tablet,soluble
1,000 mg PO BID
Referrals:
Mendoza Uribe, [Family Provider] -
Interventions
Interventions:
*Risk Screen - Suicide Last Done: 11/21/23 13:15
*General Assessment Last Done: 11/21/23 13:15
*Neglect/Abuse Screening Last Done: 11/21/23 13:15
ED- Fall Risk Assessment Last Done: 11/21/23 13:15
*ED COVID-19 Vaccine History Last Done: 11/21/23 13:15
CW-Bwwpvh-Dsziqbryzm Assessment Last Done: 11/21/23 13:15
Discharge Date and Time
Print Language: YORUBA
--- NOTE | 2023-11-21 14:36 | HPS.HSE ---
Addendum entered and electronically signed by Rommel Rader MD 11/21/23 15:46:
see my update note for addendum
Original Note:
Family Physician
-
Family Physician: Mendoza Uribe
Chief Complaint
-
abd pain CHAY drain not draining
History of Present Illness
58-year-old male status post total colectomy secondary to mesenteric ischemia with residual fluid collection. Interventional radiology replaced drains yesterday 11/20/2023, and on 11/18/2023, but they are currently not draining. The patient is
complaining of chills with persistent abdominal pain. He states the drain was draining around the site on Friday. He currently has a left-sided CHAY drain with no drainage. He has clear green drainage from his right sided ostomy. He denies
headache, fever, chest pain, palpitations, shortness breath, cough, nausea, vomiting, diarrhea, urinary symptoms. He has past medical history of ID postcardiac cath, active smoker.
PMH HTN, subtotal colectomy due to mesenteric ischemia 09/23/2023, Aorto-mesenteric bypass 06/18/2021 graft bypass into the celiac and SMA vessels, lysis of adhesions, Aorto-mesenteric bypass thrombectomy and patch angioplasty mesenteric bypass
09/13/2023, history of independent respiratory failure with extubation resolved 09/27/2023, postop shock from sepsis blood loss after subtotal colectomy,
GI bleed related to ischemic colitis, COPD, nicotine abuse, CAD/NSTEMI, hyperbilirubinemia possible [place]
Occlusive thrombus left arm/cephalic vein, antecubital fossa, distal aspect upper arm, chronic back pain with superior endplate T12 L4 loss, insomnia
Medical History
Past Medical History
Past Medical History: Reports Other
Additional Past Medical History:
Mesenteric Ischemia subtotal colectomy due to mesenteric ischemia 09/23/2023
aortomesenteric bypass 06/18/2021 graft bypass into the celiac and SMA vessels
lysis of adhesions, aortomesenteric bypass thrombectomy and patch angioplasty mesenteric bypass 09/13/2023,
Coronary Vasospasm
COPD
nicotine abuse,
CAD/NSTEMI
hyperbilirubinemia possible [place]
chronic back pain with superior endplate T12 L4 loss
insomnia
LLE DVT
Occlusive thrombus left arm/cephalic vein, antecubital fossa, distal aspect upper arm,
HTN
history of independent respiratory failure with extubation resolved 09/27/2023
postop shock from sepsis blood loss after subtotal colectomy,
GI bleed related to ischemic colitis
Past Surgical History: Reports Other
Additional Past Surgical History:
Supraceliac aorta to hepatic artery/superior mesenteric artery bypass�
Left Knee Arthroscopy
Lumbar Discectomy
Hemorrhoidectomy
Social History
Tobacco: Smoker (10 cigarillos per day )
Alcohol: None
Drug: None
Employment: Employed
Family History
Family History: Not pertinent
Allergies / Home Medications
Allergies reflects when Allergies were last updated in [employer].
Home Medications with original date entered in [employer]
Allergy/Medication List:
Allergies
Allergy/AdvReac Type Severity Reaction Status Date / Time
No Known Allergies Allergy Verified 11/21/23 12:33
Home Medications
aspirin 81 mg tablet,delayed release 81 mg PO DAILY Blood Clot Prevention/Tx 09/12/23
apixaban 5 mg tablet (Eliquis) 5 mg PO BID #60 tabs 10/24/23
diltiazem HCl 120 mg capsule,extended release 24 hr (Cartia XT) 120 mg PO DAILY #30 caps 10/24/23
fluconazole 200 mg tablet 200 mg PO HS #30 tabs 10/24/23
loperamide 2 mg capsule 2 mg PO BID #60 caps 10/24/23
oxycodone 5 mg tablet 5 mg PO Q4HPRN PRN Moderate pain #30 tabs 10/24/23
pantoprazole 40 mg tablet,delayed release 40 mg PO DAILY #30 tabs 10/24/23
psyllium husk (aspartame) 3.4 gram oral powder packet (Metamucil Fiber Singles) 1 packet PO HS #30 ea 10/24/23
levofloxacin 750 mg tablet 750 mg PO DAILY half-way 11/21/23
sodium chloride 1,000 mg soluble tablet 1,000 mg PO BID 11/21/23
zolpidem 5 mg tablet 5 mg PO HS 11/21/23
Review of Systems
-
History Source: Patient
A 12 point ROS was completed and negative except as noted: Yes
Constitutional: Reports Chills; Denies Fever
EENT: Denies Sore Throat or Runny Nose
Respiratory: Denies Cough or Trouble Breathing
Cardiac: Denies Chest Pain, Palpitations or Syncope
Abdomen/GI: Reports Abdominal Pain, Nausea and Other (ostomy present ); Denies Vomiting or Diarrhea
: Reports Other (ostomy draining green liquid in color); Denies Dysuria, Frequency, Flank Pain or Incontinence
Musculoskeletal: Denies Joint Pain or Edema
Skin: Denies Itching or Rash
Neurological: Denies Dizzy, Headache or Weakness
Endocrine: Reports No Symptoms
Hematologic/Lymphatic: Reports No Symptoms
Psych: Reports Calm
Physical Exam
Vital Signs
Vital Signs
Temp Pulse Resp BP Pulse Ox
98.9 F 96 17 101/80 100
11/21/23 12:33 11/21/23 14:00 11/21/23 14:00 11/21/23 14:00 11/21/23 14:00
Physical Exam
General: Conversant, Pain and Chills; No Fever
HEENT: NormoCephalic, Anicteric, Moist mucous membranes, PERRLA, [place] Conjunctivae and No Ptosis
Respiratory: Clear; No Wheezes, Rales or Rhonchi
Cardiac: S1/S2 and Regular Rhythm; No Murmur, Rub, Gallop or Peripheral Edema
Breast: Deferred by me
GI: Soft, Tender (left upper and lower quadrant ) and Ostomy (right sided with green liquid drainage)
Rectal: Deferred by Provider
Genito-urinary: Deferred by me
Musculoskeletal: No Clubbing, No Cyanosis and No Edema
Skin: Warm and Dry; No Rash or Jaundice
Neuro: AO x 3, No Motor Deficits, Nonfocal/grossly intact, Cranial Nerves Intact and No Sensory Deficits; No Slurred Speech or Facial Droop
Psych: Calm
Laboratory Results
-
11/21/23 13:39
11/21/23 13:39
Laboratory Results
Total Bilirubin 0.3 mg/dl (0.2-1.3) 11/21/23 13:39
AST 39 U/L (17-59) 11/21/23 13:39
ALT 28 U/L (0-50) 11/21/23 13:39
Alkaline Phosphatase 169 U/L (38-126) H 11/21/23 13:39
Impression/Plan
-
Impression/plan:
Admit to IMU
# Obstructed left-sided abdominal percutaneous drain s/p intrabd abscess
WBC 17.4 with left shift, 98.9 F, 101/80
-Drains placed yesterday 11/20/2023 and fri11/18/23 with no output today
-Consult colorectal surgery patient followed by Dr. Andrews
-Consult I/D
-Consult Vasc
-Consult GI
-HOLD chronic Levaquin 750 mg daily, fluconazole 200 mg at bedtime
-IV Zosyn
-IV NSS
-IV Zofran as needed
-Iv morphine as needed pain
-HOLD oxycodone 5 mg every 4 hours as needed pain, continue loperamide 2 mg p.o. twice daily
- cbc, bmp
- check Ct abdomen pelvis with Iv and oral
#Hyponatremia
NA 129
-Follow BMP
#Hypotension/HTN�benign
101/80
-IV NSS 100 cc bolus now, followed by IV NSS 100 cc/h
-Hold Cardia XT 120 mg daily
#Recent intra-abdominal abscess requiring subtotal colectomy due to mesenteric ischemia
#Hx Ischemic bowel c/b necrotic bowel
- S/p ex-lap 09/20: Necrotic and perforated entire transverse colon, ischemic right colon and terminal ileum, ischemic left colon, ? ischemia of the proximal
jejunum. 70 cm terminal colon with entire right colon, transverse colon and descending colon removed.
- S/P 2nd look ex-lap 09/22 with Murky fluid throughout the abdomen, viable remaining small intestine with excellent Doppler signals, Haily ileostomy
#Mesenteric ischemia secondary to mesenteric bypass thrombosis
#History of Aorto-mesenteric bypass 05/2021; graft bypass into the celiac and SMA vessels
- s/p Exploratory laparotomy, lysis of adhesions, aorto-mesenteric bypass Tona thrombectomy, mesenteric arteriogram, patch angioplasty of aorto-mesenteric bypass 09/12
- CTA 09/13 showing patient bypass, concern for bowel ischemia
#Hx vent dependent respiratory failure with extubation resolved 09/27/2023
#Hx postop shock from sepsis blood loss after subtotal colectomy resolved 09-27-2023
#Hx GI bleed related to ischemic colitis
Hgb 11.8
-Continue Protonix 40 mg daily
#COPD-no acute exacerbation
#Nicotine abuse
-Cessation advised
#CAD/ NSTEMI Hx
-Continue aspirin 81 mg daily
#Hyperbilirubinemia hx
#History of possible Gilbert's
#Hx DVT status post apixaban 04/18/2021 post left knee surgery
-HOLD Eliquis
#Hx occlusive thrombus left arm throughout cephalic vein, antecubital fossa, distal aspect upper arm 09/28/23
-HOLD Eliquis
change to Iv heparin
#Chronic back pain history height loss superior endplate T12 L4
#Insomnia
Continue zolpidem 5 mg at bedtime
#cachexia 2/2 to protein malnutrition- bmi 17.8kg
DVT prophylaxis
IV heparin gtt
Full code
--- NOTE | 2023-11-21 15:46 | W.PN.UPDATE ---
Update Note
Progress Note Update
I saw and examined the patient.
The [facility] note was reviewed and I agree with the note.
Comment: 58 y/o M recent complicated admission of mesenteric ischemia s/p thrombectomy and later colectomy and ostomy creation, discharged 1 month ago with drain. This past week drains needed to be upsized for lack of drainage and drainage around
the insertion site. He had an upsizing of drain 11/19 and today was instructed to come to ER for lack of drainage and WBC of 17. He also has persistent abdominal pain and chills.
In ER, WBC 17 and patient admitted on IV Abx. a CT scan is pending.
Physical Exam
General: Conversant, Pain and Chills; No Fever
HEENT: Normocephalic, Anicteric, Moist mucous membranes, PERRLA, [place] Conjunctivae and No Ptosis
Respiratory: Clear; No Wheezes, Rales or Rhonchi
Cardiac: S1/S2 and Regular Rhythm; No Murmur, Rub, Gallop or Peripheral Edema
Breast: Deferred by me
GI: Soft, Tender (left upper and lower quadrant ) and Ostomy (right sided with green liquid drainage)
Rectal: Deferred by Provider
Genito-urinary: Deferred by me
Musculoskeletal: No Clubbing, No Cyanosis and No Edema
Skin: Warm and Dry; No Rash or Jaundice
Neuro: AO x 3, No Motor Deficits, Nonfocal/grossly intact, Cranial Nerves Intact and No Sensory Deficits; No Slurred Speech or Facial Droop
Psych: Calm
Assessment:
Obstructed left-sided abdominal percutaneous drain
Intra-abdominal abscess
- s/p upsized drain 11/19 by IR to 14 Fr but not output
- repeat CT abdomen/pelvis
- d/w CRS service who requested consults to GS, GI and Vascular to discuss endoscopic vs surgical options for intervention.
- hold Levaquin and start IV Zosyn. continue oral Fluconazole. ID consult
- continue pain control and anti-emetics
Hyponatremia
- consider Lasix/OFR pending AM value
- NSS for now due to hypotension
Essential HTN
- hold Diltiazem
- NSS for now due to hypotension
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
- s/p Exploratory laparotomy, lysis of adhesions, aorto-mesenteric bypass Tona thrombectomy, mesenteric arteriogram, patch angioplasty of aorto-mesenteric bypass 09/12
- CT-A 09/13 showing patient bypass, concern for bowel ischemia (see below).
- hold Eliquis; start IV heparin drip pending decisions on procedural intervention.
recent Ischemic bowel c/b necrotic bowel
- s/p ex-lap 09/20: Necrotic and perforated entire transverse colon, ischemic right colon and terminal ileum, ischemic left colon, ? ischemia of the proximal jejunum. 70 cm terminal colon with entire right colon, transverse colon and descending colon
removed.
- s/p 2nd look ex-lap 09/22 with Murky fluid throughout the abdomen, viable remaining small intestine with excellent Doppler signals, Haily ileostomy
Hx GI bleed related to ischemic colitis
- continue PPI
- Hb 11.8
COPD, without acute exacerbation
Nicotine abuse
- cessation advised
CAD/ NSTEMI Hx
- continue aspirin 81 mg daily
Hyperbilirubinemia hx
History of possible Gilbert's
Hx occlusive thrombus left arm throughout cephalic vein, antecubital fossa, distal aspect upper arm 09/28/23
previous Hx DVT status post apixaban 04/18/2021 post left knee surgery
- hold Eliquis; start IV heparin drip pending decisions on procedural intervention.
Chronic back pain history height loss superior endplate T12 L4
Insomnia
- continue zolpidem 5 mg at bedtime
Cachexia 2/2 to protein malnutrition- bmi 17.8kg
- consult nutrition
Hx vent dependent respiratory failure with extubation resolved 09/27/2023
DVT prophylaxis: IV hep gtt
Code: Full
--- NOTE | 2023-11-21 16:04 | CON.ID ---
Consultation
-
Date/Time Consultation Requested: November 21, 2023 1532
Date/Time Consultation Performed: November 21, 2023 1600
Requesting Provider: Dr. Rommel Rader
Performing Provider: Dr. Lety Cline
Reason for Consultation: Recurrent intra-abdominal abscess
Chief Complaint / Past History
Chief Complaint
Abdominal pain
History of Present Illness
58-year-old male with hx mesenteric occlusive disease status post supraceliac aorta to hepatic artery/SMA bypass June 25, 2021. Patient discontinued taking the Plavix around January 2023. He was recently hospitalized from September 11 to October 23,
2023 when he presented with bowel ischemia due to complete occlusion of the mesenteric bypass status post emergent thrombectomy and patch angioplasty on September 13, 2023. Subsequently patient had peritonitis due to ischemic bowel with perforated
transverse colon status post subtotal colectomy and takedown of splenic flexure on September 20. OR culture grew Sujatha albicans. Hospital course complicated by multiple recurrence of abdominal abscesses requiring percutaneous drain placements. He
was managed by infectious disease Dr. Marks. He had been on antibiotics since then including meropenem, micafungin initially then stepdown to levofloxacin plus fluconazole as suppressive therapy due to suspected infection of SMA graft. However
at the end of September, he had recurrence of abdominal fluid collections requiring percutaneous drainage x 2 which grew Pseudomonas resistant to meropenem and quinolones. Antibiotic regimen changed to Zosyn and continued on fluconazole. Plan was to
continue with Zosyn times another 2 weeks through November 06 then he was placed on suppressive levofloxacin. He is maintained on the fluconazole indefinitely. He has upcoming appt with Dr. Marks 11/24. Pt was discharged with 2 abd drains. The L
lower drain was removed due to leakage. The left upper drain then stopped draining x 1 week then started leaking around site. Colorectal ordered CT November 16, showing persistence of the large irregular rim-enhancing fluid collection extending across
the midline along the anterior margin of the pancreas into the right upper quadrant. The drain was replaced. However, he continued to have leakage around the drain site. On 11/19 he underwent left upper quadrant percutaneous abscess catheter
upsized. However, at home patient noted that the catheter was not draining at all. He also develop worsening abdominal pain. Positive chills. He came back to the hospital today. White count was elevated. He reports he is tolerating the
levofloxacin and fluconazole without side effects.
Past History
Additional Past Medical History:
Hx mesenteric occlusive disease s/p mesentery (supraceliac aorta to hepatic artery/SMA) bypass 06/25/2021
Mesenteric ischemia due to complete occlusion of mesenteric bypass s/p emergent SMA thrombectomy, patch angioplasty 09/13/2023
Perforated bowel s/p subtotal colectomy (09/21/23), multiple abscesses s/p multiple drains, on prolonged abx.
Total splenic infarct
Chronic back pain
Insomnia
Lumbar discectomy
Left knee arthroscopic surgery
Left upper extremity DVT
Left lower extremity DVT
MOHs for SCC face and leg
Allergy History:
No Known Allergies Allergy (Verified 11/21/23 12:33)
Medications Reviewed: Yes
Current Antibiotics:
Zosyn
Social History
Tobacco: Former Smoker (10 cigarillos/d)
Alcohol: None
Drug: None
Family History
Family History: Not Pertinent
Review of Systems
Review of Systems
General: Chills; Negative Fever or Change in Appetite
HEENT: Negative Sinus Problems, Headache or Pharyngitis
Cardiovascular: Negative Chest Pain or Dyspnea
Respiratory: Negative Dyspnea or Cough
Gasteroenterology: Other (no chane in bowel pattern); Negative Nausea or Vomiting
Genital / Urological: Negative Dysuria or Flank Pain
Endocrine: Negative Weakness
Skin / Hair / Nails: Negative Rash
Neurological: Negative Headache or Dizziness
All systems: All other systems were reviewed and were negative
Vital Signs
Temp Pulse Resp BP Pulse Ox
98.9 F 99 13 93/72 97
11/21/23 12:33 11/21/23 15:15 11/21/23 15:15 11/21/23 15:12 11/21/23 15:15
Physical Exam
Physical Exam
Constitutional: No Acute Distress, Comfortable and Cachetic
Eyes: No Conjunctival Hemorrhage and Sclera Anicteric
Cardiovascular: Regular Rate and S1/S2
Pulmonary: Clear
Gastrointestinal: Soft, Non Tender, Non Distended and Other (left upper quadrant CHAY drain minimal fluid)
Genito-Urinary: Negative CVA Tenderness
Extremities: Negative Edema
Neurological: AO x 3
Lab / Diagnostic Study Results
11/21/23 13:39
11/21/23 13:39
Abs Immat Gran (auto) 0.1 10^3/uL (0-0.05) H 11/21/23 13:39
Absolute Neuts (auto) 13.4 10^3/uL (1.4-6.5) H 11/21/23 13:39
Absolute Lymphs (auto) 2.2 10^3/uL (1.2-3.4) 11/21/23 13:39
Absolute Monos (auto) 1.5 10^3/uL (0.1-0.6) H 11/21/23 13:39
Absolute Basos (auto) 0.1 10^3/uL (0-0.2) 11/21/23 13:39
Immature Gran % 0.8 % (0-0.5) H 11/21/23 13:39
Neutrophils % 77.3 % (42.2-75.2) H 11/21/23 13:39
Lymphocytes % 12.6 % (20.5-51.1) L 11/21/23 13:39
Monocytes % 8.5 % (1.7-9.3) 11/21/23 13:39
Eosinophils % 0.3 % (0-6) 11/21/23 13:39
Basophils % 0.5 % (0-2) 11/21/23 13:39
Microbiology Results
Micro:
11/21/23 13:39 Blood Culture - Pending
Blood/Venous
11/21/23 13:40 Blood Culture - Pending
Blood/Venous
Assessment / Plan
# Nondraining abdominal catheter despite upsizing 11/19
# Persistent stable left upper abdominal fluid collection without change
# Leukocytosis
# Recent ischemic bowel, total splenic infarct with total SMA graft occlusion
- s/p thrombectomy (performed through prior graft) & patch repair
-s/p subtotal colectomy
- Sujatha peritonitis
- Pseudomonas (resistant to meropenem and quinolones) intrab abdominal abscesses s/p per drain
- On suppressive Levofloxacin and fluconazole, as per Dr. Marks, due to suspected infected SMA graft
Plan:
-Need CT-guided perc drain into collection. PLEASE send fluid for culture.
-In the meantime, replace levofloxacin with Zosyn 4.5g IV q6hr.
Case complicated by no optimal po abx for suppression of Pseudomonas.
- Continue fluconazole 200mg po daily.
- Follow leukocytosis
[2023-11-21] MEDS: OMNIPAQUE 50 ML PO (16:10)
[2023-11-21] MEDS: MORPHINE SULFATE 2 MG IV ×2 (16:16→20:48)
[2023-11-21] MEDS: NSS 250 IV (16:16)
--- NOTE | 2023-11-21 16:33 | CON.VAS ---
Addendum entered and electronically signed by Ayaz Chavez III, MD 11/21/23 17:18:
This patient was seen and examined with AVIVA Ramirez. I agree with the history and physical exam as well as the assessment and plan. I have the following additions:
Well-known to vascular surgery service
Recent prolonged admission after thrombosis of aorto hepatic/SMA bypass.
Bypass was reopened with surgical exploration but did require bowel resection and ostomy for ischemic bowel
Intra-abdominal abscesses
Now readmitted for persistent abdominal pain (not acute in onset) and failure of left flank drain
He is nontoxic on exam
Abdomen is soft and flat
Ostomy is productive
Obtain CT scan and will evaluate the bypass.
Continue antibiotics
Call with questions or concerns
Signed:
Ayaz Chavez III, MD
[facility]
[phone] (tsru)
Original Note:
Consultation
Consultation Request
Date/Time Consultation Performed: 11/21/23 1630
Requesting Provider: Hospitalist
Performing Provider: Lety Jarquin, KATHY-C for Ayaz Chavez III, MD
Reason for Consultation: Abdominal pain
Medical History
-
Chief Complaint: Abdominal pain, nausea/vomiting
History of Present Illness:
This is a 58-year-old male, known to our service for history of SMA occlusion treated with supraceliac aorta to hepatic artery/superior mesenteric artery bypass in 2020 now status post total colectomy secondary to mesenteric ischemia with residual
intra-abdominal fluid collection. Patient reports IR physician replaced drain yesterday 11/20/2023, but he has not had output via drain. Instead, he notes output of abscess collection at drain site. He reports continued chills, abdominal pain,
nausea, and intermittent episodes of retching with minimal emesis. He currently has a left-sided CHAY drain with no drainage. He denies headache, fever, chest pain, palpitations, shortness breath, cough, nausea, vomiting, diarrhea, urinary symptoms.
He has past medical history of [place] postcardiac cath, active smoker. He was recently hospitalized from 09/12/23-10/24/2023 when he presented to the ER with mesenteric ischemia from thrombosis of mesentery bypass. He had a lengthy hospital course
complicated by return or trip for mesenteric ischemia and subtotal colectomy, respiratory failure, and postoperative shock from sepsis blood loss after subtotal colectomy.
Past Medical History
Past Medical History: CAD, COPD, HTN and Other ( hyperbilirubinemia possible [place], insomnia, left lower extremity DVT, Occlusive thrombus left arm/cephalic vein, antecubital fossa, distal aspect upper arm, GI bleed related to ischemic colitis)
Past Surgical History: Other (Supraceliac aorta to hepatic artery/superior mesenteric artery bypass 06/25/2021, Subtotal colectomy due to mesenteric ischemia 09/23/2023, aortomesenteric bypass thrombectomy and patch angioplasty mesenteric bypass
09/13/2023, Left Knee Arthroscopy, Lumbar Discectomy )
Social History
Tobacco: Smoker
Alcohol: None
Drug: None
Allergies / Home Medications
Allergy/AdvReac Type Severity Reaction Status Date / Time
No Known Allergies Allergy Verified 11/21/23 12:33
�Medication �Instructions �Recorded �Confirmed �Type
aspirin 81 mg tablet,delayed 81 mg PO DAILY Blood Clot 09/12/23 11/21/23 History
release Prevention/Tx
apixaban 5 mg tablet (Eliquis) 5 mg PO BID #60 tabs 10/24/23 11/21/23 Rx
diltiazem HCl 120 mg 120 mg PO DAILY #30 caps 10/24/23 11/21/23 Rx
capsule,extended release 24 hr
(Cartia XT)
fluconazole 200 mg tablet 200 mg PO HS #30 tabs 10/24/23 11/21/23 Rx
loperamide 2 mg capsule 2 mg PO BID #60 caps 10/24/23 11/21/23 Rx
oxycodone 5 mg tablet 5 mg PO Q4HPRN PRN Moderate pain 10/24/23 11/21/23 Rx
#30 tabs
pantoprazole 40 mg tablet,delayed 40 mg PO DAILY #30 tabs 10/24/23 11/21/23 Rx
release
psyllium husk (aspartame) 3.4 gram 1 packet PO HS #30 ea 10/24/23 11/21/23 Rx
oral powder packet (Metamucil
Fiber Singles)
levofloxacin 750 mg tablet 750 mg PO DAILY fdc 11/21/23 11/21/23 History
sodium chloride 1,000 mg soluble 1,000 mg PO BID 11/21/23 11/21/23 History
tablet
zolpidem 5 mg tablet 5 mg PO HS 11/21/23 11/21/23 History
Review of Systems
-
History Source: Patient
Constitutional: Reports Chills; Denies Fever
EENT: Reports No Symptoms
Respiratory: Reports No Symptoms
Cardiac: Reports No Symptoms
Abdomen/GI: Reports Abdominal Pain, Nausea and Vomiting (Indicates vomiting is very minimal but has lungs sessions of intermittent retching)
: Reports No Symptoms
Musculoskeletal: Reports No Symptoms
Skin: Reports No Symptoms
Neurological: Reports No Symptoms
Endocrine: Reports No Symptoms
Physical Exam
Vital Signs
Temp Pulse Resp BP Pulse Ox
98.9 F 87 13 98/70 97
11/21/23 12:33 11/21/23 16:15 11/21/23 16:15 11/21/23 16:13 11/21/23 16:15
Lab Results
11/21/23 13:39
11/21/23 13:39
Physical Exam
General: No Apparent Distress and Comfortable
HEENT: Normocephalic, Anicteric and Atraumatic
Respiratory: Non Labored Respirations
Cardiac: Negative JVD
GI: Soft, Non Distended, Tender, Flat and Other (Ostomy present with stool in bag)
Musculoskeletal: No Edema
Skin: Warm and Dry
Neuro: AO x 3
Assessment / Plan
-
Assessment: 58-year-old male with history of mesenteric ischemia secondary to mesenteric bypass thrombosis, presenting to ER with known intra-abdominal abscess and reports of continued abdominal pain, nausea, and vomiting/retching. Also endorses no
drainage from recently placed IR drain.
Plan:
CT angio abdomen pending, will provide vascular surgical plan once CT scan is obtained.
I performed this shared service with the attending. I evaluated the patient [id number] and have entered clinical documentation as shown in the encounter note. I performed the following component(s): history and physical exam. Note that medical
decision making is not final until attested by vascular attending.
--- NOTE | 2023-11-21 18:31 | W.PN.UPDATE ---
Update Note
Progress Note Update
CT A/P reviewed. Non CTA, but IV contrast was administered.
SMA limb of the bypass appears patent. Hepatic limb is known to be thrombosed.
Distal SMA branches fill.
Unfortunately the collection and drain is in very close proximity to the prosthetic graft from the aorto-hepatic/SMA bypass. Graft infection risk is high. Continue ABX as there will be no option for graft removal in this patient.
Call with questions or concerns
Will follow peripherally
Ayaz Chavez III, MD
[facility] V[facility] Surgery
[phone] (bgrd)
[2023-11-21] MEDS: NSS 1000 IV (19:35)
--- NOTE | 2023-11-21 20:30 | PTCARENOTE ---
Dr Florentino Alanis in to see pt. After discussion with pt verbal order received by Dr Alanis for regular diet this evening then NPO after midnight x meds. Pt received boxed lunch. Pt tearful d/t his health status. Asked if he would like to talk to
someone given everything he is going through and dealing with and he stated 'yes.' Wendy CHICAS on floor and made aware. Will enter order for pysch consult. Will continue to monitor.
[2023-11-21] MEDS: ELIQUIS 5 MG PO (20:40)
[2023-11-21] MEDS: IMODIUM 2 MG PO (20:41)
[2023-11-21] MEDS: SODIUM CHLORIDE 1 GRAM PO (20:41)
--- NOTE | 2023-11-21 20:42 | CON.CRS ---
Medical History
-
History of Present Illness:
58-year-old male with PMH of COPD, CAD/SD, DVT (on Eliquis), HTN, chronic mesenteric ischemia s/p aortic to SMA and celiac bypass in 2020 who had a recent prolonged admission for SMA graft thrombosis and underwent an exlap with SMA thrombectomy on
09/12 with vascular surgery, which was complicated by mesenteric ischemia and on 09/20 underwent an exlap with subtotal colectomy (removed the right/transverse and mid descending colon) and small bowel resection of 70 cm of the terminal ileum,
underwent planned reexploration on 09/22 with creation of end ileostomy. His postoperative course was complicated by a LUQ collection that was drained by IR and had elevated lipase, a complete infarction of the spleen, hyponatremia due to SIADH,
high ileostomy output and persistent LUQ collection requiring drain upsize. He was ultimately discharged on 10/23 with antibiotics and followed with ID. Most recently, he was complaining about drainage from around the drain on 11/16 and underwent a
CT with IR drain exchange. The CT showed the collection extending from the left upper quadrant to the right upper quadrant and compressing on the gallbladder (versus gallbladder fistula). In order to improve drainage, IR brought the patient back
and placed a 14 Indonesian drain extending from the left upper quadrant all the way to the right upper quadrant. However, this morning, the patient was saying that nothing was coming out of the drain and he was starting to have more abdominal pain
associated with nausea. He was instructed to go to the ED for further evaluation.
In the ED, his WBC was [address] scan was done showing the known upper abdominal collection with IR guided drain in place and slight improvement in size, as well as oral contrast in the distal colon concerning for fistula development between small
bowel and the Michael pouch. The patient was admitted and started on IV antibiotics.
Past Medical History
Past Medical History: Other (As above)
Past Surgical History: Other (As above)
Family History
Family History: Reviewed & Not Pertinent
Allergies / Home Medications
Allergy/AdvReac Type Severity Reaction Status Date / Time
No Known Allergies Allergy Verified 11/21/23 12:33
�Medication �Instructions �Recorded �Confirmed �Type
aspirin 81 mg tablet,delayed 81 mg PO DAILY Blood Clot 09/12/23 11/21/23 History
release Prevention/Tx
apixaban 5 mg tablet (Eliquis) 5 mg PO BID #60 tabs 10/24/23 11/21/23 Rx
diltiazem HCl 120 mg 120 mg PO DAILY #30 caps 10/24/23 11/21/23 Rx
capsule,extended release 24 hr
(Cartia XT)
fluconazole 200 mg tablet 200 mg PO HS #30 tabs 10/24/23 11/21/23 Rx
loperamide 2 mg capsule 2 mg PO BID #60 caps 10/24/23 11/21/23 Rx
oxycodone 5 mg tablet 5 mg PO Q4HPRN PRN Moderate pain 10/24/23 11/21/23 Rx
#30 tabs
pantoprazole 40 mg tablet,delayed 40 mg PO DAILY #30 tabs 10/24/23 11/21/23 Rx
release
psyllium husk (aspartame) 3.4 gram 1 packet PO HS #30 ea 10/24/23 11/21/23 Rx
oral powder packet (Metamucil
Fiber Singles)
levofloxacin 750 mg tablet 750 mg PO DAILY superintendent container terminal 11/21/23 11/21/23 History
sodium chloride 1,000 mg soluble 1,000 mg PO BID Electrolyte 11/21/23 11/21/23 History
tablet Repletion
zolpidem 5 mg tablet 5 mg PO HS Sleep 11/21/23 11/21/23 History
Review of Systems
-
A 10 point review of systems was completed, and was negative except as per HPI.
Physical Exam
Vital Signs
Temp 99.2 F 11/21/23 19:27
Pulse 92 11/21/23 20:15
Resp Rate 14 11/21/23 20:15
Blood pressure 94/69 11/21/23 20:00
SaO2 96 11/21/23 20:15
11/20/23 11/21/23 11/22/23
06:59 06:59 06:59
Actual Weight 57.8 kg
Body Mass Index (BMI) 17.8
Lab Results / Allergies
11/21/23 13:39
11/21/23 13:39
WBC 17.4 10^3/uL (4.8-10.8) H 11/21/23 13:39
Hgb 11.8 g/dL (13.0-18.0) L 11/21/23 13:39
Hct 36.3 % (39.0-52.0) L 11/21/23 13:39
Plt Count 699 10^3/uL (130-400) H 11/21/23 13:39
Abs Immat Gran (auto) 0.1 10^3/uL (0-0.05) H 11/21/23 13:39
Neutrophils % 77.3 % (42.2-75.2) H 11/21/23 13:39
Allergy/AdvReac Type Severity Reaction Status Date / Time
No Known Allergies Allergy Verified 11/21/23 12:33
Physical Exam
General: No Apparent Distress and Comfortable
HEENT: Normocephalic and Atraumatic
GI: Soft, Non Distended, Tender (Mildly tender in the epigastric region; no rebound or guarding) and Other (Ostomy pink and productive of yellow/green succus)
Skin: Warm and Dry
Neuro: AO x 3
Data Reviewed
-
CT Scan: Image Personally Visualized and interpreted, Discussed with Physician and Discussed with Patient
Labs: Labs Reviewed by me, Discussed with Physician and Discussed with Patient
Assessment / Plan
-
58-year-old male with PMH of COPD, CAD/SD, DVT (on Eliquis), HTN, chronic mesenteric ischemia s/p aortic to SMA and celiac bypass in 2020 who had a recent prolonged admission for SMA graft thrombosis s/p exlap with SMA thrombectomy/patch angioplasty
on 09/12 with vascular surgery; c/b mesenteric ischemia and underwent an exlap, STC w/ SBR (of 70cm) on 09/20 with planned take-back on 09/22 with creation of end-ileostomy; postoperative course was complicated by a LUQ collection that was drained by
IR and had elevated lipase, a complete infarction of the spleen, hyponatremia due to SIADH, high ileostomy output and persistent LUQ collection requiring drain upsize. He was ultimately discharged on 10/23 with antibiotics and followed with ID. On
11/16, underwent a CT with IR drain exchange, CT showing the collection extending from LUQ to RUQ and compressing on the gallbladder (versus gallbladder fistula); s/p IR drain upsize/reposition on 11/19. On day of admission, c/o worsening abdominal
pain and no output from drain; in the ED, his WBC [address] scan was done showing the known upper abdominal collection with IR guided drain in place and slight improvement in size, as well as oral contrast in the distal colon concerning for
fistula development between small bowel and the Michael pouch
�No acute surgical intervention currently indicated; any surgery at this point would be extremely high risk; recommend continued nonoperative management of peripancreatic/upper abdominal fluid collection
� Recommend general surgery consult for peripancreatic fluid collection and possible gallbladder fistula
� Recommend vascular surgery consult for concern of infected aorto�SMA graft
� Recommend ID consult for antibiotics; will need long-term suppressive therapy for concern of infected graft in setting of peripancreatic/upper abdominal fluid collection
� For possible small bowel to colon fistula, no intervention currently needed; will look for evidence of malnutrition
� Okay for regular diet, but keep n.p.o. at midnight
�Continue hep drip; hold off on Eliquis in case further procedures are needed
� For improved drainage of peripancreatic/upper abdominal fluid collection, options include additional IR guided drains as well as possible cystgastrostomy by advanced GI; will monitor course on IV antibiotics
� Appreciate hospitalist
[2023-11-21] MEDS: AMBIEN 5 MG PO (20:48)
[2023-11-21] MEDS: DIFLUCAN 200 MG PO (20:48)
[2023-11-21] MEDS: ZOSYN 100 IV (21:41)
[2023-11-21 23:12] LABS: Hematocrit 30.5 % (39.0-52.0); Hemoglobin 10.5 g/dL (13.0-18.0); Mean Corp Hgb Conc. 34.4 g/dL (33.0-37.0); Mean Corpuscular Hgb 29.3 pg (27.0-31.0); Mean Corpuscular Volume 85.2 fL (80.0-94.0); Mean Platelet Volume 8.5 fL (7.4-10.4); Platelet Count 633 10^3/uL (130-400); Red Blood Cell Count 3.58 10^6/uL (4.70-6.10); White Blood Cell Count 14.6 10^3/uL (4.8-10.8)
[2023-11-21] MEDS: HEPARIN 25000 UNITS/250 ML IV (23:24)
[2023-11-21 23:29] LABS: APTT 40.8 Sec (23.4-35.0); PT 18.9 Sec (11.4-14.6)
[2023-11-21] MEDS: MORPHINE SULFATE 4 MG IV (23:30)
--- NOTE | 2023-11-21 23:33 | PTCARENOTE ---
After discussion with Mikala Henry) AVIVA re: notation from Dr Rader and Dr Alanis noting pt on Heparin gtt, coags obtained and pt started on Heparin gtt at 10mls/hr. Next PTT in at 0530. Will continue to monitor.
[2023-11-22] VITALS (14 sets, daily range): BP systolic 87–117; BP diastolic 63–99; PULSE 80–84; O2SAT 96–97; BMI 17.7
[2023-11-22] MEDS: ZOSYN 100 IV ×4 (02:43→21:48)
[2023-11-22] MEDS: MORPHINE SULFATE 2 MG IV ×3 (02:44→17:45)
[2023-11-22 06:02] LABS: % Basophils 0.6 % (0-2); % Eosinophils 0.6 % (0-6); % Immature Granulocytes 0.9 % (0-0.5); % Monocytes 6.2 % (1.7-9.3); % Neutrophils 80.7 % (42.2-75.2); Absolute Basophils 0.1 10^3/uL (0-0.2); Absolute Eosinophils 0.1 10^3/uL (0-0.7); Absolute Immature Granulocytes 0.2 10^3/uL (0-0.05); Absolute Lymphocytes 2.5 10^3/uL (1.2-3.4); Absolute Monocytes 1.4 10^3/uL (0.1-0.6); Absolute Neutrophils 18.5 10^3/uL (1.4-6.5); Hematocrit 31.6 % (39.0-52.0); Hemoglobin 10.9 g/dL (13.0-18.0); Mean Corp Hgb Conc. 34.5 g/dL (33.0-37.0); Mean Corpuscular Hgb 29.1 pg (27.0-31.0); Mean Corpuscular Volume 84.5 fL (80.0-94.0); Mean Platelet Volume 8.5 fL (7.4-10.4); Nucleated Red Blood Cells % 0 % (-); Platelet Count 622 10^3/uL (130-400); Red Blood Cell Count 3.74 10^6/uL (4.70-6.10); Red Cell Dist. Width 18.1 % (11.5-14.5); White Blood Cell Count 22.9 10^3/uL (4.8-10.8)
[2023-11-22 06:07] LABS: APTT 54.5 Sec (23.4-35.0)
[2023-11-22] MEDS: HEPARIN 4600 UNITS IV ×2 (06:17→20:24)
[2023-11-22 06:21] LABS: ALT (SGPT) 23 U/L (0-50); AST (SGOT) 40 U/L (17-59); Albumin 2.3 g/dl (3.5-5.0); Alkaline Phosphatase 130 U/L (38-126); Blood Urea Nitrogen 6 mg/dl (9-20); Calcium 8.3 mg/dl (8.4-10.2); Carbon Dioxide 25 mmol/L (22-30); Chloride 99 mmol/L (98-107); Estimated Creatinine Clearance 91 ml/min; Glucose 93 mg/dl (70-99); Potassium 4.6 mmol/L (3.5-5.1); Sodium 128 mmol/L (135-145); Total Bilirubin 0.5 mg/dl (0.2-1.3); Total Protein 5.2 g/dl (6.3-8.2); eGFR > 60.00
[2023-11-22] MEDS: PROTONIX 40 MG PO (08:57)
[2023-11-22] MEDS: NSS 1000 IV (08:57)
[2023-11-22] MEDS: IMODIUM 2 MG PO ×2 (08:57→21:49)
[2023-11-22] MEDS: ASPIR LOW (ENTERIC COATED) 81 MG PO (08:58)
[2023-11-22] MEDS: SODIUM CHLORIDE 1 GRAM PO ×2 (08:58→21:48)
[2023-11-22] MEDS: ZOFRAN 4 MG IV (09:48)
--- NOTE | 2023-11-22 11:08 | W.PN.ID1 ---
Date of Service
Date of Service: November 22, 2023
Today's Communication
Continue Zosyn and fluconazole.
Assessment / Plan
# Recent total SMA graft occlusion, ischemic bowel, total splenic infarct
- s/p thrombectomy (performed through prior graft) & patch repair (09/13/23)
-s/p subtotal colectomy (09/21/23)
- Sujatha peritonitis
- Pseudomonas (resistant to meropenem and quinolones) intra-abdominal abscesses s/p perc drains
- s/p IV abx's then suppressive Levofloxacin and fluconazole, as per Dr. Marks, due to suspected infected SMA graft, Per Vascular unable to remove graft.
# Nondraining abdominal catheter despite upsizing 11/19
# Persistent left upper abdominal fluid collection - possible fistula connection to GB
# Leukocytosis - trending up
Plan:
- Surgery following. Awaiting input regarding fluid collection and fistula
- Continue Zosyn 4.5g IV q6hr (d2)
Case complicated by no optimal po abx for suppression of Pseudomonas (resistant to cipro/levofloxacin). Overall poor prognosis.
- Continue fluconazole 200mg po daily.
- Follow leukocytosis
Chief Complaint
-: Other (abscess)
Subjective / Review of Systems
No new complaints
Vital Signs / Physical Exam
Vital Signs
Vital Signs
Temp Pulse Resp BP Pulse Ox
98.7 F 78 11 100/71 98
11/22/23 07:55 11/22/23 10:00 11/22/23 10:00 11/22/23 10:00 11/22/23 10:09
Physical Exam
Constitutional: No Acute Distress
Cardiovascular: Regular Rate and S1/S2
Gastrointestinal: Soft and Non Tender
Extremities: Negative Edema
Objective Data
Lab Data
Lab Results
11/22/23 05:42
11/22/23 05:42
PT 18.9 Sec (11.4-14.6) H 11/21/23 23:05
INR 1.60 11/21/23 23:05
APTT 54.5 Sec (23.4-35.0) H 11/22/23 05:42
Estimated Creat Clear 91 ml/min 11/22/23 05:42
Total Bilirubin 0.5 mg/dl (0.2-1.3) 11/22/23 05:42
AST 40 U/L (17-59) 11/22/23 05:42
ALT 23 U/L (0-50) 11/22/23 05:42
Alkaline Phosphatase 130 U/L (38-126) H 11/22/23 05:42
Most recent labs reviewed.
Micro Results:
11/21/23 13:39 Blood Culture - Pending
Blood/Venous
11/21/23 13:40 Blood Culture - Pending
Blood/Venous
11/21/23 CT a/p: Left-sided percutaneous drainage catheter extending across the midline to the right with overall decreased fluid density collection, including a component in the left midabdomen. Cannot exclude fistulous communication between the
portion of the abnormal fluid collection in the right abdomen/drainage catheter with the gallbladder. Prior colectomy with Ochoa pouch again identified. Diverting right lower quadrant ileostomy. High attenuation density within the rectum of
uncertain etiology. Cannot exclude fistulous communication between small bowel in the left abdomen and the distal colon.
--- NOTE | 2023-11-22 12:25 | CON.MD ---
Consultation - Medical
-
Asked to see this 58 y/o man due to depression and anxiety resulting from his serious medical condition. He was sent by his colorectal surgeon for admission due to abdominal pain and chills. He is s/p subtotal colectcomy 09/23/23 due to
ischemic bowel with an ostomy formed. His drain stopped draining, a second drain was placed which also was not draining and he was found to have a fluid collection which could represent an abscess. He has history of GA about 5 years ago due to
coronary artery spasm, Htn, COPD, occlusive thrombi including R arm. Had an aorto-mesenteric bypass 06/18/21 and 09/13/23 which could now be infected by his report which cannot be replaced. Hx of successful disc surgery.
He is now having periods of hypotension and has lost substantial weight. Today's labs reveal WBC 21.9, Hgb/Hct 10.9/31.6%; Pt 622; Na low at 128, BUN 6 Cr 0.7, Ca 8.3. BP this AM was 95/69 P90 RR 18, afebrile, O2 Sat 96%. On antibiotics. Only
psych med is Ambien 5 mg. HS.
He reports he is worried about his condition and not being able to take care of others: his children, his father at the [employer] and his mother at [facility]. Was going to be teaching his daughters to drive. 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 He denies suicidal ideation -- very much wants to live. In past few months gets teary. Sleep had been poor, but last night, when hypotensive, slept well.
Has an appetite and looks forward to his ex- bringing him a [employer] burger. He does not have anhedonia, does not have cognitive problems, does not have panic attacks and there are no signs of psychosis. He is concerned about once appearing
young and robust and now being so thin and weak.
PH: Never saw a therapist or psychiatrist. No periods of depression.
FH: Had a fraternal twin brother, Mitchel, who was mentally ill (?bipolar disorder) and in a car accident about two years ago in [place] which may have been suicide. Pt. never got along with him and Mitchel had caused problems between pt.
and his parents about 25 years ago resulting in them not talking for many years and not being involved in his children's lives. He has an older brother who has a good government job and lives in [place]. There are no other relatives in the area who
could help parents. Father was a [place] safety instruction police officer. 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 Mother is unable to care for herself and he is happy with placement at [facility].
He asked for a divorce from his because of 'trust issues' (he had evidence of her infidelity). Nonetheless, they are 'best friends' and she has been very helpful to him (she came with the hamburger at the end of my visit). Has five children;
a son in [facility], a daughter in [place] and the others are at home.
SH: Raised in [place] and felt sheltered. Attended [employer] schools graduating from [employer]. Attended [employer] for 2 1/2 years, but it was 'not for him' and wanted to work instead. Went to [place],
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 He has always done side-jobs. 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
He does not drink any alcohol and it had never been a problem in his life. Had used occasional marijuana in the past and is interested now in getting a medical card. Was prescribed Vicodin for back pain and tapered off not wanting to become
addicted and not liking the constipation it caused. No use of other drugs. Former cigarette smoker.
DSM-5 Dx: Adjustment Disorder with Depression and Anxiety
Treatment Plan: Mr. Barros is not interested in treatment with psychiatric medications and I agree that the risks out way potential benefit. SSRI's and SNRI's can increase the risk of bleeding and lower sodium which is already low. They
could also initially increase nausea. Mirtazapine could be considered which might help him gain weight as well. I would avoiod habitual use of a benzodiazepine and have no problem with continuing the low dose Ambien if it is helpful.
If possible, I will see him tomorrow just for supportive psychotherapy. I encouraged him to accept graciously the help others (e.g. ex-) are giving him as he had always given to others. He will ask his bother in [place] to be more involved with
their parents.
[2023-11-22 13:41] LABS: APTT 100.3 Sec (23.4-35.0)
--- NOTE | 2023-11-22 14:02 | W.PN.HOSP.TC ---
Today's Communication/Plan
-
continue IV Abx and continue fluconazole
continue IV Heparin gtt
follow recs of GS, ID
Assessment / Plan
Assessment / Plan
Assessment:
Obstructed left-sided abdominal percutaneous drain
Intra-abdominal abscess
- s/p upsized drain 11/19 by IR outpatient to 14 Fr but not output
- CT abdomen/pelvis: Left-sided percutaneous drainage catheter extending across the midline to the right with overall decreased fluid density collection, including a component in the left midabdomen. Cannot exclude fistulous communication between
the portion of the abnormal fluid collection in the right abdomen/drainage catheter with the gallbladder. Prior colectomy with Ochoa pouch again identified. Diverting right lower quadrant ileostomy. High attenuation density within the rectum of
uncertain etiology. Cannot exclude fistulous communication between small bowel in the left abdomen and the distal colon.
- d/w CRS service who requested consults to GS, GI and Vascular to discuss endoscopic vs surgical options for intervention. Ongoing discussions about cystogastrostomy vs surgical intervention.
- hold Levaquin and start IV Zosyn. continue oral Fluconazole. ID following
- continue pain control and anti-emetics
Hyponatremia
- NSS for now due to hypotension
Essential HTN
- hold Diltiazem
- NSS for now due to hypotension
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
- s/p Exploratory laparotomy, lysis of adhesions, aorto-mesenteric bypass Tona thrombectomy, mesenteric arteriogram, patch angioplasty of aorto-mesenteric bypass 09/12
- CT with IV contrast: SMA limb of the bypass appears patent. Hepatic limb is known to be thrombosed. distal SMA branches fill.
- hold Eliquis; start IV heparin drip pending decisions on procedural intervention. IV heparin requires intensive monitoring.
- per Vascular: collection and drain is in very close proximity to the prosthetic graft from the aorto-hepatic/SMA bypass. Graft infection risk is high. Continue ABX as there will be no option for graft removal in this patient.
recent Ischemic bowel c/b necrotic bowel
- s/p ex-lap 09/20: Necrotic and perforated entire transverse colon, ischemic right colon and terminal ileum, ischemic left colon, ? ischemia of the proximal jejunum. 70 cm terminal colon with entire right colon, transverse colon and descending colon
removed.
- s/p 2nd look ex-lap 09/22 with Murky fluid throughout the abdomen, viable remaining small intestine with excellent Doppler signals, Haily ileostomy
Hx GI bleed related to ischemic colitis
- continue PPI
- Hb 11.8
COPD, without acute exacerbation
Nicotine abuse
- cessation advised
CAD/ NSTEMI Hx
- continue aspirin 81 mg daily
Hyperbilirubinemia hx
History of possible Gilbert's
Hx occlusive thrombus left arm throughout cephalic vein, antecubital fossa, distal aspect upper arm 09/28/23
previous Hx DVT status post apixaban 04/18/2021 post left knee surgery
- hold Eliquis; start IV heparin drip pending decisions on procedural intervention.
Chronic back pain history height loss superior endplate T12 L4
Insomnia
- continue zolpidem 5 mg at bedtime
Cachexia 2/2 to protein malnutrition- bmi 17.8kg
- consult nutrition
Hx vent dependent respiratory failure with extubation resolved 09/27/2023
DVT prophylaxis: IV hep gtt
Code: Full
Anticipated Discharge: > 48 hours
Subjective/Interval History
-
Date of Service: November 22, 2023
no new complaints
Objective Data
-
Labs:
Laboratory Results
11/22/23 11/22/23
05:42 13:18
WBC 22.9 H
Hgb 10.9 L
Hct 31.6 L
Plt Count 622 H
APTT 54.5 H 100.3 H
Sodium 128 L
Potassium 4.6
Chloride 99
Carbon Dioxide 25
BUN 6 L
Creatinine 0.7
Glucose 93
Calcium 8.3 L
Total Bilirubin 0.5
AST 40
ALT 23
Alkaline Phosphatase 130 H
Vital Signs:
Vital Signs
Temp Pulse Resp BP Pulse Ox
98.3 F 78 11 100/71 98
11/22/23 11:30 11/22/23 10:00 11/22/23 10:00 11/22/23 10:00 11/22/23 10:09
I&O
11/21/23 11/22/23 11/23/23
06:59 06:59 06:59
Intake Total 1460 / 1460
Balance 1460 / 1460
Physical Exam
-
General: No Apparent Distress
HEENT: Normocephalic and Atraumatic
Respiratory: Negative Wheezes
Cardiac: Regular Rhythm
GI: Soft and Other (Left sided drain)
Neuro: AO x 3
Psych: Calm
Data Reviewed
-
Total Time Spent with Patient (in minutes): 51
Labs: Labs Reviewed by me
--- NOTE | 2023-11-22 15:05 | W.PN.GS2 ---
Addendum entered and electronically signed by Esteban Ward MD 11/22/23 15:41:
I saw and examined the patient.
The Program Review Director's note was reviewed and I agree with the note.
Comment: Complex and high risk situation. Clinically his pain is controlled, he is not having n/v, and his ileostomy is functioning well. He is having some output per rectum and imaging confimrs PO contrast in the distal rectum suggestive of
entero-colonic fistula. On my interpretation there appears to be a second fistula forming from small bowel to the LLQ abdominal wall in the area of a previous drain. The scar here is firm and tender, it may mature in the coming days and begin to
drain enteric contents. The tract appears to be contained. The existing drain on imaging appears to extend into the lumen of the gallbladder tough this is difficult to assess with certainty. The drain has minimal output. I suspect the distal portion
of the drain that passes through the known LUQ collection may not perform well as this collection may be beyond the extent of the drain channels. His WBC is trending up and his BP has been low normal with a single hypotensive reading that improved
when the cuff was recycled.
Plan: Overall the prognosis is poor. 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 The collections in the RUQ and
LUQ do not appear to be adequately controlled with the existing drain. A drain study with contrast may confirm or r/o the presence of the drain within the gb lumen. If this is the case, it would not be safe to remove the drain at this time, but
additional drains could be placed (perhaps via transhepatic approach on the right, and a new drain added to the LUQ collection). However, I advised the pt that if in fact there is an infected graft, this is likely not a curable condition and would
require long lines operator suppressive abx that may or may not be effective. For the moment, since he is not obstructed, we will advance his diet. With rising WBC it may be prudent to broaden his antimicrobial coverage, will d/w ID. Will d/w IR the utility
of a drain study with a lexie type drain. If drain study not feasible, HIDA scan could potentially demonstrate whether there is ongoing leak from the gallbladder.
Original Note:
Today's Communication / Plan
-
Regular diet
ABX
Assessment / Plan
-
58-year-old male with PMH of COPD, CAD/NM, DVT (on Eliquis LD 11/20 pm), HTN, chronic mesenteric ischemia s/p aortic to SMA and celiac bypass in 2020 who had a recent prolonged admission for SMA graft thrombosis s/p exlap with SMA thrombectomy/patch
angioplasty on 09/12 with vascular surgery; c/b mesenteric ischemia and underwent an exlap, STC w/ SBR (of 70cm) on 09/20 with planned take-back on 09/22 with creation of end-ileostomy; postoperative course was complicated by a LUQ collection that was
drained by IR and had elevated lipase, a complete infarction of the spleen, hyponatremia due to SIADH, high ileostomy output and persistent LUQ collection requiring drain upsize. He was ultimately discharged on 10/23 with antibiotics and followed
with ID. On 11/16, he underwent a CT with IR drain exchange, CT showing the collection extending from LUQ to RUQ and compressing on the gallbladder; s/p IR drain upsize/reposition on 11/19 without much benefit as drain with no outputs.
He presents with c/o worsening abdominal pain and no output from drain; Leukocytosis present and trending up. CT scan was done 11/20 showing the known upper abdominal collection with IR guided drain in place and slight improvement in size although
cannot exclude fistula presence, as well as oral contrast in the distal colon concerning for fistula development between small bowel and the Michael pouch and possibly a fistula developing in the LLQ
No acute surgical intervention currently indicated; any surgery at this point would be extremely high risk; recommend continued nonoperative management of peripancreatic/upper abdominal fluid collection
Vascular surgery and ID following closely with us. GI consulted to determine if possible cystgastrostomy by advanced GI would be of benefit.
Severe protein calorie malnutrition noted with BMI of 17.7, cell liner consulted
- Anticipate he will need long-term suppressive therapy for concern of infected graft in setting of peripancreatic/upper abdominal fluid collection
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
- Continue loperamide for management of higher ostomy outputs and follow I&O's
� Okay for regular diet with suppl, but keep n.p.o. at midnight in case condition deteriorates
� Continue hep drip; hold off on Eliquis (LD 11/20 pm) in case further procedures are needed
� Appreciate hospitalist
- Trend labs/lactic acid/exams/vitals
Subjective Data
-
Date of Service: November 22, 2023
Patient seen and examined at bedside with Dr. Ward. Denies pain at rest. Passing some mucoid/green tinged stools rectally. Denies n/v. Good appetite.
Objective Data
-
Intake and Output
11/21/23 11/22/23 11/23/23
06:59 06:59 06:59
Intake Total 1460 / 1460
Balance 1460 / 1460
Intake:
Oral fluids 240 / 240
IV fluids (Total) 960 / 960
IV piggybacks 260 / 260
Other:
Number of approximated MODERATE 1
amounts of urine
Vital Signs
Temp Pulse Resp BP Pulse Ox
98.3 F 78 11 100/71 98
11/22/23 11:30 11/22/23 10:00 11/22/23 10:00 11/22/23 10:00 11/22/23 10:09
Lab Results
11/22/23 05:42
11/22/23 05:42
Calcium 8.3 mg/dl (8.4-10.2) L 11/22/23 05:42
Total Bilirubin 0.5 mg/dl (0.2-1.3) 11/22/23 05:42
AST 40 U/L (17-59) 11/22/23 05:42
ALT 23 U/L (0-50) 11/22/23 05:42
Alkaline Phosphatase 130 U/L (38-126) H 11/22/23 05:42
Total Protein 5.2 g/dl (6.3-8.2) L 11/22/23 05:42
Albumin 2.3 g/dl (3.5-5.0) L 11/22/23 05:42
Physical Exam
-
NAD, AAOx3
ABD: Soft, nondistended, right lower quadrant ostomy with green loose stool some flatus. Stoma pink/viable.
LLQ tender with guarding with small area of scarring noted from prior drain. LUQ IR drain with no output, dressing intact.
Midline incision well healed
[2023-11-22 20:07] LABS: Lactic Acid 3.1 mmol/L (0.7-2.0)
[2023-11-22 20:08] LABS: APTT 63.6 Sec (23.4-35.0)
[2023-11-22] MEDS: HEPARIN 25000 UNITS/250 ML IV (21:43)
[2023-11-22] MEDS: MORPHINE SULFATE 4 MG IV (21:46)
[2023-11-22] MEDS: AMBIEN 5 MG PO (21:49)
[2023-11-22] MEDS: DIFLUCAN 200 MG PO (21:49)
--- NOTE | 2023-11-22 21:58 | PTCARENOTE ---
Pt's ileostomy leaking on side. Reddish/orange liquid in collection bag. New appliance bag placed with pt assistance using pt's own supplies. will bring more supplies in tomorrow. Admits to pain to upper abdomen 6/10 pain rating. Medicated with
prn Morphine as ordered. IVF's infusing as ordered. Zosyn infusing. Heparin gtt currently infusing at 1400 units after PTT result of 63.6 with rebolus and increase by 200 units per protocol. Next PTT at 0230. No drainage from left CHAY site. Dressing
c/d/i. Using urinal at bedside. VSS. Afebrile. SR on CM rate 90's. Rest of assessment as documented. Call antonio remains within reach. Will continue to monitor.
[2023-11-22] MEDS: TYLENOL 650 MG PO (23:01)
[2023-11-23] VITALS (23 sets, daily range): BP systolic 82–115; BP diastolic 53–78; BMI 18.2
[2023-11-23] MEDS: NSS 500 IV (00:23)
--- NOTE | 2023-11-23 00:24 | PTCARENOTE ---
Lactic acid from beginning of shift 3.1. Oral temp 100.4 received Tylenol and temp currently 99.3. HR 95. Current BP 82/59 MAP 68. Mikala (Wendy) AVIVA TT'd and made aware. Order entered for 500ml NS bolus. Bolus currently infusing. Pt resting
comfortably without c/o. Will continue to monitor.
--- NOTE | 2023-11-23 01:04 | PTCARENOTE ---
Pt responded well to IVF bolus. Current BP 107/73. Resting comfortably. Will continue to monitor.
[2023-11-23] MEDS: NSS 1000 IV ×3 (01:57→23:08)
[2023-11-23] MEDS: ZOSYN 100 IV ×4 (01:57→19:13)
[2023-11-23 02:53] LABS: % Basophils 0.5 % (0-2); % Eosinophils 0.9 % (0-6); % Immature Granulocytes 0.6 % (0-0.5); % Lymphocytes 15.4 % (20.5-51.1); % Monocytes 7.3 % (1.7-9.3); % Neutrophils 75.3 % (42.2-75.2); Absolute Basophils 0.1 10^3/uL (0-0.2); Absolute Eosinophils 0.2 10^3/uL (0-0.7); Absolute Immature Granulocytes 0.1 10^3/uL (0-0.05); Absolute Lymphocytes 3.3 10^3/uL (1.2-3.4); Absolute Monocytes 1.6 10^3/uL (0.1-0.6); Absolute Neutrophils 16.3 10^3/uL (1.4-6.5); Hematocrit 27.7 % (39.0-52.0); Hemoglobin 9.3 g/dL (13.0-18.0); Mean Corp Hgb Conc. 33.6 g/dL (33.0-37.0); Mean Corpuscular Hgb 29.9 pg (27.0-31.0); Mean Corpuscular Volume 89.1 fL (80.0-94.0); Mean Platelet Volume 8.5 fL (7.4-10.4); Nucleated Red Blood Cells % 0 % (-); Platelet Count 593 10^3/uL (130-400); Red Blood Cell Count 3.11 10^6/uL (4.70-6.10); Red Cell Dist. Width 18.6 % (11.5-14.5); White Blood Cell Count 21.6 10^3/uL (4.8-10.8)
[2023-11-23 03:06] LABS: Lactic Acid 1.2 mmol/L (0.7-2.0)
[2023-11-23 03:23] LABS: APTT 177.8 Sec (23.4-35.0)
[2023-11-23 03:51] LABS: ALT (SGPT) 15 U/L (0-50); AST (SGOT) 31 U/L (17-59); Albumin 1.9 g/dl (3.5-5.0); Alkaline Phosphatase 117 U/L (38-126); Blood Urea Nitrogen 6 mg/dl (9-20); Calcium 7.8 mg/dl (8.4-10.2); Carbon Dioxide 24 mmol/L (22-30); Chloride 102 mmol/L (98-107); Estimated Creatinine Clearance 80 ml/min; Glucose 89 mg/dl (70-99); Potassium 4.4 mmol/L (3.5-5.1); Sodium 129 mmol/L (135-145); Total Bilirubin 0.5 mg/dl (0.2-1.3); Total Protein 4.4 g/dl (6.3-8.2); eGFR > 60.00
[2023-11-23] MEDS: NSS IV (04:45)
--- NOTE | 2023-11-23 04:55 | PTCARENOTE ---
BP 87/54 MAP 64 HR 81. temp 98.9. Lactic acid down to 1.2. WBC up to 21.6. Mikala, (Wendy) [employer] TT'd and made aware. Order entered to increase IVF's to 125ml/hr (from 80ml/hr). IVF's increased as ordered. CHAY without drainage. Will continue to monitor.
[2023-11-23] MEDS: IMODIUM 2 MG PO ×2 (07:29→19:10)
[2023-11-23] MEDS: SODIUM CHLORIDE 1 GRAM PO ×2 (07:29→19:10)
[2023-11-23] MEDS: PROTONIX 40 MG PO (07:29)
[2023-11-23] MEDS: ASPIR LOW (ENTERIC COATED) 81 MG PO (07:29)
[2023-11-23] MEDS: MORPHINE SULFATE 2 MG IV (07:29)
--- NOTE | 2023-11-23 07:41 | PTCARENOTE ---
Pt is AAOx3, co of abd pain 12/07 given morphine as ordered. Pt talked re his struggles and his hope for the future and the lack of hope for a recovery . Will continue to support and encourage pt.
--- NOTE | 2023-11-23 10:00 | PTCARENOTE ---
Pt seen by surgery Heparin on hold due to possible drain placement
--- NOTE | 2023-11-23 11:35 | W.PN.UPDATE ---
Update Note
Progress Note Update
Seen for over 45 minutes for supportive psychotherapy. Case discussed with nurse and chart reviewed including surgery note. Prognosis is quite poor. Pt. is calm, although clearly upset about his condition. Nurse reports he had been tearful
earlier. He seems to well understand his condition and possibility he might not survive surgery or extubation and that an infected graft cannot be replaced.
He reminisced about his life, told me about having a transgender child with Asperger's (had mastectomy) and about his childhood. His father got sober and apologized when pt. was in college; his mother then started drinking. Spoke about his very
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 His brother lives in [facility] and has a very important job. Has not told him about his current condition.
Pt is remaining hopeful. He is fully alert and cognitively intact. To have drain placement this afternoon.
Only psychoactive medication is continuation of Ambien 5 mg.
--- NOTE | 2023-11-23 11:50 | PTCARENOTE ---
Pt to IR in bed for drain report to Eliza
[2023-11-23 11:54] LABS: Glucose - Point of Care 91 mg/dl (70-99)
--- NOTE | 2023-11-23 12:17 | W.PN.ID1 ---
Date of Service
Date of Service: November 23, 2023
Today's Communication
See below.
Assessment / Plan
Recent total SMA graft occlusion, ischemic bowel, total splenic infarct
- s/p thrombectomy (performed through prior graft) & patch repair (09/13/23)
-s/p subtotal colectomy (09/21/23)
- Sujatha peritonitis
- Pseudomonas (resistant to meropenem and quinolones) intra-abdominal abscesses s/p perc drains
- s/p IV abx's then suppressive Levofloxacin and fluconazole, as per Dr. Marks, due to suspected infected SMA graft, Per Vascular unable to remove graft.
# Nondraining abdominal catheter despite upsizing 11/19
# Persistent left upper abdominal fluid collection
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
# Leukocytosis - stable
Plan:
- Appreciate surgery eval: overall poor prognosis. will attempt IR drainage of fluid collection. To send cx.
- Continue Zosyn 4.5g IV q6hr (d3) and fluconazole 200mg po daily for now.
Agree with poor prognosis. The infected SMA is not removable. There is no effective po abx option to suppress Pseudomonas (resistant to cipro/levofloxacin).
Lifelong IV antibiotic is not feasible.
- Follow leukocytosis
Chief Complaint
-: Other (abscess)
Subjective / Review of Systems
No new symptoms
Vital Signs / Physical Exam
Vital Signs
Vital Signs
Temp Pulse Resp BP Pulse Ox
99.4 F 88 15 98/67 98
11/23/23 12:01 11/23/23 12:01 11/23/23 12:01 11/23/23 11:00 11/23/23 12:01
Physical Exam
Constitutional: Cachetic
Gastrointestinal: Soft and Non Distended
Extremities: Negative Edema
Psychological: Other (Down affect)
Objective Data
Lab Data
Lab Results
11/23/23 02:30
11/23/23 02:30
PT 18.9 Sec (11.4-14.6) H 11/21/23 23:05
INR 1.60 11/21/23 23:05
APTT Cancelled 11/23/23 10:30
Estimated Creat Clear 80 ml/min 11/23/23 02:30
Lactic Acid 1.2 mmol/L (0.7-2.0) 11/23/23 02:30
Total Bilirubin 0.5 mg/dl (0.2-1.3) 11/23/23 02:30
AST 31 U/L (17-59) 11/23/23 02:30
ALT 15 U/L (0-50) 11/23/23 02:30
Alkaline Phosphatase 117 U/L (38-126) 11/23/23 02:30
Most recent labs reviewed.
Micro Results:
11/21/23 13:39 Blood Culture - Preliminary
Blood/Venous No Growth in 24 hours- Final report to follow
11/21/23 13:40 Blood Culture - Preliminary
Blood/Venous No Growth in 24 hours- Final report to follow
11/21/23 CT a/p: Left-sided percutaneous drainage catheter extending across the midline to the right with overall decreased fluid density collection, including a component in the left midabdomen. Cannot exclude fistulous communication between the
portion of the abnormal fluid collection in the right abdomen/drainage catheter with the gallbladder. Prior colectomy with Ochoa pouch again identified. Diverting right lower quadrant ileostomy. High attenuation density within the rectum of
uncertain etiology. Cannot exclude fistulous communication between small bowel in the left abdomen and the distal colon.
--- NOTE | 2023-11-23 13:55 | W.PN.HOSP.TC ---
Today's Communication/Plan
-
attempt IR drainage placement. If not feasible may need surgery vs hospice
Assessment / Plan
Assessment / Plan
Assessment:
Obstructed left-sided abdominal percutaneous drain
Intra-abdominal abscess
- s/p upsized drain 11/19 by IR outpatient to 14 Fr but not output
- CT abdomen/pelvis: Left-sided percutaneous drainage catheter extending across the midline to the right with overall decreased fluid density collection, including a component in the left midabdomen. Cannot exclude fistulous communication between
the portion of the abnormal fluid collection in the right abdomen/drainage catheter with the gallbladder. Prior colectomy with Ochoa pouch again identified. Diverting right lower quadrant ileostomy. High attenuation density within the rectum of
uncertain etiology. Cannot exclude fistulous communication between small bowel in the left abdomen and the distal colon.
- d/w CRS service who requested consults to GS and Vascular to discuss endoscopic vs surgical options for intervention. Ongoing discussions about cystogastrostomy wit GI vs surgical intervention.
- 11/22: for IR eval for additional drain placement
- hold Levaquin and start IV Zosyn. continue oral Fluconazole. ID following. permanent IV Antibiotics are not feasible.
- continue pain control and anti-emetics
Hyponatremia
- NSS for now due to hypotension
Essential HTN
- hold Diltiazem
- NSS for now due to hypotension; may need low dose pressors
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
- s/p Exploratory laparotomy, lysis of adhesions, aorto-mesenteric bypass Tona thrombectomy, mesenteric arteriogram, patch angioplasty of aorto-mesenteric bypass 09/12
- CT with IV contrast: SMA limb of the bypass appears patent. Hepatic limb is known to be thrombosed. distal SMA branches fill.
- hold Eliquis; start IV heparin drip pending decisions on procedural intervention. IV heparin requires intensive monitoring.
- per Vascular: collection and drain is in very close proximity to the prosthetic graft from the aorto-hepatic/SMA bypass. Graft infection risk is high. Continue ABX as there will be no option for graft removal in this patient.
recent Ischemic bowel c/b necrotic bowel
- s/p ex-lap 09/20: Necrotic and perforated entire transverse colon, ischemic right colon and terminal ileum, ischemic left colon, ? ischemia of the proximal jejunum. 70 cm terminal colon with entire right colon, transverse colon and descending colon
removed.
- s/p 2nd look ex-lap 09/22 with Murky fluid throughout the abdomen, viable remaining small intestine with excellent Doppler signals, Haily ileostomy
Hx GI bleed related to ischemic colitis
- continue PPI
- Hb 11.8
COPD, without acute exacerbation
Nicotine abuse
- cessation advised
CAD/ NSTEMI Hx
- continue aspirin 81 mg daily
Hyperbilirubinemia hx
History of possible Gilbert's
Hx occlusive thrombus left arm throughout cephalic vein, antecubital fossa, distal aspect upper arm 09/28/23
previous Hx DVT status post apixaban 04/18/2021 post left knee surgery
- hold Eliquis; start IV heparin drip pending decisions on procedural intervention.
Chronic back pain history height loss superior endplate T12 L4
Insomnia
- continue zolpidem 5 mg at bedtime
Cachexia 2/2 to protein malnutrition- bmi 17.8kg
- consult nutrition
Hx vent dependent respiratory failure with extubation resolved 09/27/2023
DVT prophylaxis: IV hep gtt
Code: Full
Anticipated Discharge: > 48 hours
Subjective/Interval History
-
Date of Service: November 23, 2023
hypotensive overnight but recovered with fluids
for IR drain placement again today
Objective Data
-
Labs:
Laboratory Results
11/23/23 11/23/23
02:30 10:30
WBC 21.6 H
Hgb 9.3 L
Hct 27.7 L
Plt Count 593 H
APTT 177.8 H* Cancelled
Sodium 129 L
Potassium 4.4
Chloride 102
Carbon Dioxide 24
BUN 6 L
Creatinine 0.8
Glucose 89
Calcium 7.8 L
Total Bilirubin 0.5
AST 31
ALT 15
Alkaline Phosphatase 117
Vital Signs:
Vital Signs
Temp Pulse Resp BP Pulse Ox
99.4 F 88 15 107/71 98
11/23/23 12:01 11/23/23 12:01 11/23/23 12:01 11/23/23 11:30 11/23/23 12:01
I&O
11/22/23 11/23/23 11/24/23
06:59 06:59 06:59
Intake Total 1460 / 1460 3540 / 3540 280 / 280
Output Total 1025 / 1025 250 / 250
Balance 1460 / 1460 2515 / 2515 30 / 30
Physical Exam
-
General: No Apparent Distress
HEENT: Normocephalic and Atraumatic
Cardiac: Regular Rhythm and S1/S2
GI: Tender and Other (Left sided abdomen drain)
Neuro: AO x 3
Psych: Calm
Data Reviewed
-
Total Time Spent with Patient (in minutes): 49
Labs: Labs Reviewed by me
--- NOTE | 2023-11-23 14:07 | W.PN.GS2 ---
Addendum entered and electronically signed by Esteban Ward MD 11/23/23 20:00:
I saw and examined the patient.
The Director Part's note was reviewed and I agree with the note.
Comment: Clinically nontoxic, abd exam with increased diffuse ttp today, mostly right hemiabdomen. Increased pain med reqs. Low grade temps (new) and soft BP including intermittent hypotension responsive to fluids. WBC remains elevated without
significant downward trend, elevated lactate noted, this improved with fluid rescus but certainly there is concern for ischemia in setting of soft BPs, intermittent hypotension and an aorto-SMA graft in situ, there also concern for graft infection.
Vascular surgery does not feel it would not be safe to approach this graft surgically, this would carry very high mortality risk. The existing drain is clearly inadequate for source control, requested IR place new drain to both RUQ (preferably
transhepatic) and LUQ, only LUQ drain was placed due to pain. Some purulent output from new drain and the old one after instrumentation.
Very high risk situation. We discussed if he declines further he may need exploratory laparotomy and this may not be survivable.
Another option if there is decline would be to check stat CTA abdomen to interrogate the graft, there may be an endovascular approach that is feasible if there is occlusion of the graft.
In the event he needs OR, the plan would be washout, wide drainage, CCY if necessary (some concern the drain is actually in the gallbladder lumen) and if time allows. However if there is ischemic bowel this is likely not a survivable situation.
Other option would be comfort measures in the event of a decline.
Addendum entered and electronically signed by AVIVA Allan 11/23/23 17:22:
regular diet tonight, NPO after MN in case additional procedure warranted
Original Note:
Today's Communication / Plan
-
IR drainage
Assessment / Plan
-
58-year-old male with PMH of COPD, CAD/CO, DVT (on Eliquis LD 11/20 pm), HTN, chronic mesenteric ischemia s/p aortic to SMA and celiac bypass in 2020 who had a recent prolonged admission for SMA graft thrombosis s/p exlap with SMA thrombectomy/patch
angioplasty on 09/12 with vascular surgery; c/b mesenteric ischemia and underwent an exlap, STC w/ SBR (of 70cm) on 09/20 with planned take-back on 09/22 with creation of end-ileostomy; postoperative course was complicated by a LUQ collection that was
drained by IR and had elevated lipase, a complete infarction of the spleen, hyponatremia due to SIADH, high ileostomy output and persistent LUQ collection requiring drain upsize. He was ultimately discharged on 10/23 with antibiotics and followed
with ID.
On 11/16, CT showing the collection extending from LUQ to RUQ and compressing on the gallbladder; he underwent IR drain exchange which did not function well
On 11/19 with IR drain upsize/reposition without much benefit as drain with no outputs.
He was advised to present this admission given c/o worsening abdominal pain and no output from drain; Leukocytosis present and trending up on arrival. CT scan was done 11/20 showing the known upper abdominal collection with IR guided drain in place
and ?within the gallbladder. 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
Any surgery at this point would be extremely high risk; will continue nonoperative management of peripancreatic/upper abdominal fluid collection at this time. Prognosis overall quite poor.
Vascular surgery evaluation appreciated, if graft infected, not an operative candidate for removal/replacement.
ID following closely with us for management of IV abx
GI consulted to determine if possible cystgastrostomy by advanced GI would be able to be preformed.
Severe protein calorie malnutrition noted with BMI of 17.7, pharmacists following with us. Fistulas may heal with good nutrition without surgical intervention.
Low grade fever yesterday of 100.4
Hypotension overnight with elevated lactic acid. Responded to IVF
Worsening pain with little improvement in WBC
- Discussed with IR, will plan additional drain placements into collections
- Antibiotics as per ID
- HIDA tentatively on Friday
- Continue loperamide for management of higher ostomy outputs and follow I&O's
� NPO for procedure
- Analgesics prn
� Hold hep drip for IR procedure; hold off on Eliquis (LD 11/20 pm) in case further procedures are needed
� Appreciate hospitalist/ID/IR/GI/Vascular teams
- Trend labs/lactic acid/exams/vitals
Subjective Data
-
Date of Service: November 23, 2023
Patient seen and examined at bedside with Dr. Ward this am around 0945. Notes some worsening pain. No n/v. Tolerated diet yesterday. Stoma still productive of stool.
Objective Data
-
Intake and Output
11/22/23 11/23/23 11/24/23
06:59 06:59 06:59
Intake Total 1460 / 1460 3540 / 3540 290 / 290
Output Total 1025 / 1025 250 / 250
Balance 1460 / 1460 2515 / 2515 40 / 40
Intake:
Oral fluids 240 / 240 1080 / 1080 180 / 180
IV fluids (Total) 960 / 960 206 / 2060
IV piggybacks 260 / 260 400 / 400 100 / 100
Amount instilled into Drain (
Total)
Left Upper Abdomen B Placed in
IR
Output:
Liquid stool amount 750 / 750
Ileostomy 750 / 750
Urine, Voided 275 / 275 250 / 250
Other:
Number of approximated MODERATE 1 3
amounts of urine
Vital Signs
Temp Pulse Resp BP Pulse Ox
97.4 F 89 15 101/63 100
11/23/23 13:45 11/23/23 14:00 11/23/23 14:00 11/23/23 14:00 11/23/23 14:00
Lab Results
11/23/23 02:30
11/23/23 02:30
Calcium 7.8 mg/dl (8.4-10.2) L 11/23/23 02:30
Total Bilirubin 0.5 mg/dl (0.2-1.3) 11/23/23 02:30
AST 31 U/L (17-59) 11/23/23 02:30
ALT 15 U/L (0-50) 11/23/23 02:30
Alkaline Phosphatase 117 U/L (38-126) 11/23/23 02:30
Total Protein 4.4 g/dl (6.3-8.2) L 11/23/23:30
Albumin 1.9 g/dl (3.5-5.0) L 11/23/23 02:30
Physical Exam
-
NAD, AAOx3
ABD: Soft, nondistended, right lower quadrant ostomy with green loose stool some flatus. Stoma pink/viable.
LLQ tender with guarding with small area of scarring noted from prior drain. RUQ tender. LUQ IR drain with no output, dressing changed with purulent brown drainage around site
Midline incision well healed
[2023-11-23] MEDS: MORPHINE SULFATE 4 MG IV ×3 (14:43→23:07)
--- NOTE | 2023-11-23 14:57 | W.PN.UPDATE ---
Update Note
Progress Note Update
- CT guided placement of 12F drain into LUQ collection just inferior to existing 14F drain
- Pt with significant discomfort/pain with drain placement. After drain in place, about 10 mL of thick/purulent brown fluid aspirated. Fluid of similar consistency also began to drain from the 14F drain, possibly related to mechanical disruption of
the collection with the catheter/wire.
- RUQ collection not drained today. Collection is small and patient in significant discomfort following the other drain placement with limited ability on our end to administer any further sedation.
--- NOTE | 2023-11-23 15:53 | CM ---
Patient with Hx ileostomy with Dx Obstructed left-sided abdominal percutaneous drain, Intra-abdominal abscess. Room air. Receiving Heparin gtt, IV Abx. To IR today for placement CHAY drains. PT & OT recommend HH.
Met with patient who resides alone in a 2nd floor apartment with 1 flight outside stairs.
The patient has been assisted with ADLs by his ex- Mirian; she assists with bathing cooking, shopping.
The patient ambulates, using his RW when outside.
DME - RW, shower chair, ostomy supplies
VN - current with [facility] and wishes to resume
SNF - none
[facility] for home IV Abx.
PCP - Mendoza Uribe
Pharmacy - [facility]
The patient states that [facility] was not coming out often enough to flush his drain. He feels he will be able to do this when he goes home.
He is also requesting tape for around his ostomy site - nurse aware.
Patient became tearful stating he is worried about his prognosis and all the possible things that could go wrong that would lead to his demise - offered emotional support and encouragement. 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
Plan home with resumption [facility].
[2023-11-23 18:14] LABS: Glucose - Point of Care 94 mg/dl (70-99)
[2023-11-23 18:51] LABS: Lactic Acid 2.3 mmol/L (0.7-2.0)
[2023-11-23] MEDS: OCEAN, SALINE MIST 2 SPRAYS NASAL (19:09)
[2023-11-23] MEDS: DIFLUCAN 200 MG PO (19:10)
[2023-11-23] MEDS: AMBIEN 5 MG PO (19:11)
--- NOTE | 2023-11-23 21:23 | PTCARENOTE ---
Pt received at beginning of shift resting in bed. AAOx3. Flat, withdrawn but approachable. A&B CHAY drains to left upper lateral abdomen with minimal brown purulent drainage in each bulb. Dressing c/d/i. CHAY valves covered with ABD to protect skin.
Ileostomy to right abdomen draining green liquid with small amount soft stool. Pain rating to upper abdomen 7/10 as well as neck discomfort. Medicated with PRN Morphine. Assisted to BSC to void. Mouth care completed. Pericare completed. Back to bed
and legs elevated for comfort. VSS. SR/ST on CM . BP 108/71. Temp 99. Lactic acid from 1800 resulted 2.3. No other c/o at this time. Emotional support provided as needed. Rest of assessment as documented. Call antonio remains within reach. Will
continue to monitor.
[2023-11-23] MEDS: TYLENOL 650 MG PO (23:08)
--- NOTE | 2023-11-23 23:13 | PTCARENOTE ---
temp 101.6. Pt c/o 02/06 left upper abdominal pain sharp. CHAY drainage unchanged from previous assessment. Dressing c/d/i. BP 108/63 HR 104. Medicated with Morphine 4mg IV and PO Tylenol as ordered. Call antonio remains within reach. Will continue to
monitor.
[2023-11-24] VITALS (63 sets, daily range): BP systolic 85–126; BP diastolic 53–88; BMI 19.4
[2023-11-24] MEDS: ZOSYN 100 IV ×4 (01:08→20:17)
--- NOTE | 2023-11-24 02:09 | PTCARENOTE ---
BP 85/55 HR 91. Last temp 99.8. Pt resting comfortably after receiving Morphine 4mg IV for sharp pain to left upper abdomen. Lucinda CHICAS TT'd and updated on pt's status. Order entered for 500ml NS bolus now infusing. Will continue to monitor.
[2023-11-24] MEDS: NSS 500 IV (02:15)
[2023-11-24] MEDS: LEVOPHED 250 IV (03:21)
--- NOTE | 2023-11-24 03:31 | PTCARENOTE ---
BP 88/53 MAP 63 after 500 bolus. Lucinda CHICAS made aware via TT. Order entered for Levophed gtt at 2mcq/min for map >65. Levophed gtt initiated at ordered dose. Pt resting at present. Call antonio remains within reach. Will continue to monitor.
[2023-11-24 04:04] LABS: % Basophils 0.3 % (0-2); % Immature Granulocytes 0.8 % (0-0.5); % Lymphocytes 16.8 % (20.5-51.1); % Neutrophils 72.1 % (42.2-75.2); Absolute Basophils 0.1 10^3/uL (0-0.2); Absolute Eosinophils 0.2 10^3/uL (0-0.7); Absolute Immature Granulocytes 0.1 10^3/uL (0-0.05); Absolute Lymphocytes 2.4 10^3/uL (1.2-3.4); Absolute Monocytes 1.3 10^3/uL (0.1-0.6); Absolute Neutrophils 10.4 10^3/uL (1.4-6.5); Hematocrit 26.6 % (39.0-52.0); Mean Corp Hgb Conc. 33.8 g/dL (33.0-37.0); Mean Corpuscular Hgb 29.2 pg (27.0-31.0); Mean Corpuscular Volume 86.4 fL (80.0-94.0); Mean Platelet Volume 8.2 fL (7.4-10.4); Nucleated Red Blood Cells % 0 % (-); Platelet Count 615 10^3/uL (130-400); Red Blood Cell Count 3.08 10^6/uL (4.70-6.10); Red Cell Dist. Width 18.6 % (11.5-14.5); White Blood Cell Count 14.4 10^3/uL (4.8-10.8)
[2023-11-24 04:17] LABS: Lactic Acid 1.6 mmol/L (0.7-2.0)
[2023-11-24 05:01] LABS: ALT (SGPT) 12 U/L (0-50); AST (SGOT) 18 U/L (17-59); Albumin 1.7 g/dl (3.5-5.0); Alkaline Phosphatase 105 U/L (38-126); Blood Urea Nitrogen 5 mg/dl (9-20); Calcium 7.6 mg/dl (8.4-10.2); Carbon Dioxide 25 mmol/L (22-30); Chloride 102 mmol/L (98-107); Estimated Creatinine Clearance 73 ml/min; Glucose 103 mg/dl (70-99); Potassium 4.1 mmol/L (3.5-5.1); Sodium 130 mmol/L (135-145); Total Bilirubin 0.3 mg/dl (0.2-1.3); Total Protein 4.1 g/dl (6.3-8.2); eGFR > 60.00
[2023-11-24] MEDS: NSS 1000 IV ×3 (05:02→21:50)
[2023-11-24] MEDS: SODIUM CHLORIDE 1 GRAM PO ×2 (08:03→20:17)
[2023-11-24] MEDS: ASPIR LOW (ENTERIC COATED) 81 MG PO (08:03)
[2023-11-24] MEDS: PROTONIX 40 MG PO (08:03)
[2023-11-24] MEDS: IMODIUM 2 MG PO ×2 (08:03→20:17)
--- NOTE | 2023-11-24 08:37 | W.PN.HOSP.TC ---
Today's Communication/Plan
-
continue abx
resume back on heparin drip
diet as tolerated
HIDA scan pending
Assessment / Plan
Assessment / Plan
Intra-abdominal abscess
- s/p upsized drain 11/19 by IR outpatient to 14 Fr but not output
- CT abdomen/pelvis: Left-sided percutaneous drainage catheter extending across the midline to the right with overall decreased fluid density collection, including a component in the left midabdomen. Cannot exclude fistulous communication between
the portion of the abnormal fluid collection in the right abdomen/drainage catheter with the gallbladder. Prior colectomy with Ochoa pouch again identified. Diverting right lower quadrant ileostomy. High attenuation density within the rectum of
uncertain etiology. Cannot exclude fistulous communication between small bowel in the left abdomen and the distal colon.
-General surgery evaluated as well and no surgical interventions at this point
-11/22 interventional radiology was able to place a left upper quadrant 12 Indonesian drain. With drainage of thick purulent brown fluid coming out. Right upper quadrant collection not drained as small and patient discomfort limiting attempt.
-Currently on IV Zosyn. Patient eventually require suppressive levofloxacin and fluconazole therapy as suspicion of infected SMA graft. Vascular surgery unable to remove graft due to high risk
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
-General surgery evaluated and recommended conservative management
-High risk for surgery.
GB fistula
-Possible 1 of left upper quadrant CHAY drain tip in gallbladder
-Unsafe to be pulled out as will call biliary leak
-HIDA scan ordered and pending at this
Hyponatremia
- NSS for now due to hypotension
Essential HTN
- hold Diltiazem
- NSS for now due to hypotension; may need low dose pressors
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
- s/p Exploratory laparotomy, lysis of adhesions, aorto-mesenteric bypass Tona thrombectomy, mesenteric arteriogram, patch angioplasty of aorto-mesenteric bypass 09/12
- CT with IV contrast: SMA limb of the bypass appears patent. Hepatic limb is known to be thrombosed. distal SMA branches fill.
- Hold Eliquis and continue IV heparin drip for further need of intervention
- per Vascular: collection and drain is in very close proximity to the prosthetic graft from the aorto-hepatic/SMA bypass. Graft infection risk is high. Continue ABX as there will be no option for graft removal in this patient.
recent Ischemic bowel c/b necrotic bowel
- s/p ex-lap 09/20: Necrotic and perforated entire transverse colon, ischemic right colon and terminal ileum, ischemic left colon, ? ischemia of the proximal jejunum. 70 cm terminal colon with entire right colon, transverse colon and descending colon
removed.
- s/p 2nd look ex-lap 09/22 with Murky fluid throughout the abdomen, viable remaining small intestine with excellent Doppler signals, Haily ileostomy
Hx GI bleed related to ischemic colitis
- continue PPI
- Hb 11.8
COPD, without acute exacerbation
Nicotine abuse
- cessation advised
CAD/ NSTEMI Hx
- continue aspirin 81 mg daily
Hyperbilirubinemia hx
History of possible Gilbert's
Hx occlusive thrombus left arm throughout cephalic vein, antecubital fossa, distal aspect upper arm 09/28/23
previous Hx DVT status post apixaban 04/18/2021 post left knee surgery
- hold Eliquis; start IV heparin drip pending decisions on procedural intervention.
Chronic back pain history height loss superior endplate T12 L4
Insomnia
- continue zolpidem 5 mg at bedtime
Cachexia 2/2 to protein malnutrition- bmi 17.8kg
- consult nutrition
Hx vent dependent respiratory failure with extubation resolved 09/27/2023
DVT prophylaxis: IV hep gtt
Code: Full
Care plan discussed with colorectal surgery/general surgery
Total time spent : 55 mins
I personally saw and examined the patient.
I have reviewed all diagnostic interpretations and treatment plans as written.
Time includes patient management by me, time spent at the patients bedside, time to review lab and imaging results, discussing patient care, documentation in the medical record, and time spent with the family or caregiver and discussing care plan
with RN/Consultants.
Anticipated Discharge: > 48 hours
Subjective/Interval History
-
Date of Service: November 24, 2023
Complaining some left upper quadrant abdominal pain at drain placement site
Denies any nausea or vomiting
No other acute issues overnight
Objective Data
-
Labs:
Laboratory Results
11/24/23
03:45
WBC 14.4 H
Hgb 9.0 L
Hct 26.6 L
Plt Count 615 H
Sodium 130 L
Potassium 4.1
Chloride 102
Carbon Dioxide 25
BUN 5 L
Creatinine 0.9
Glucose 103 H
Calcium 7.6 L
Total Bilirubin 0.3
AST 18
ALT 12
Alkaline Phosphatase 105
Vital Signs:
Vital Signs
Temp Pulse Resp BP Pulse Ox
99.3 F 82 17 108/61 97
11/24/23 07:45 11/24/23 07:30 11/24/23 07:30 11/24/23 07:20 11/23/23 19:39
I&O
11/23/23 11/24/23 11/25/23
06:59 06:59 06:59
Intake Total 3540 / 3540 1989 / 1989 1350 / 1350
Output Total 1025 / 1025 1445 / 1445 590 / 590
Balance 2515 / 2515 545 / 545 760 / 760
Review of Systems
-
Respiratory: Reports No Symptoms
Cardiac: Reports No Symptoms
Abdomen/GI: Reports Abdominal Pain; Denies Nausea or Vomiting
Physical Exam
-
General: No Apparent Distress
HEENT: Normocephalic and Atraumatic
Cardiac: Regular Rhythm and S1/S2
GI: Tender and Other (Left upper quadrant CHAY drain x 2, dark brownish drainage)
Musculoskeletal: No Edema
Neuro: Awake, Alert and AO x 3
Psych: Calm
--- NOTE | 2023-11-24 10:31 | W.PN.ID1 ---
Date of Service
Date of Service: November 24, 2023
Today's Communication
Overall poor prognosis
Assessment / Plan
Recent total SMA graft occlusion, ischemic bowel, total splenic infarct
- s/p thrombectomy (performed through prior graft) & patch repair (09/13/23)
-s/p subtotal colectomy, colostomy (09/21/23)
- Sujatha peritonitis
- Pseudomonas (resistant to meropenem and quinolones) intra-abdominal abscesses s/p perc drains
- s/p IV abx's then suppressive Levofloxacin and fluconazole, as per Dr. Marks, due to suspected infected SMA graft, Per Vascular unable to remove graft.
Current hospitalization:
# Nondraining abdominal catheter despite upsizing 11/19
# Persistent left upper abdominal fluid collection
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
# Leukocytosis - improved
Plan:
- Appreciate surgery eval: overall poor prognosis. Too high risk surgical intervention.
- 11/24/23 s/p IR perc drainage 10cc pus. Cx: GNR
- Continue Zosyn 4.5g IV q6hr (d4) and fluconazole 200mg po daily for now.
Liam discussion with patient regarding overall poor prognosis. The infected SMA is not removable as per Vascular. There is no effective po abx option to suppress Pseudomonas (resistant to cipro/levofloxacin).
Lifelong IV antibiotic is not feasible.
- Follow leukocytosis
Chief Complaint
-: Other (abscess)
Subjective / Review of Systems
Abdominal pain stable
Vital Signs / Physical Exam
Vital Signs
Vital Signs
Temp Pulse Resp BP Pulse Ox
99.3 F 82 17 108/61 97
11/24/23 07:45 11/24/23 07:30 11/24/23 07:30 11/24/23 07:20 11/23/23 19:39
Physical Exam
Constitutional: No Acute Distress and Cachetic
Cardiovascular: Regular Rate and S1/S2
Pulmonary: Clear
Gastrointestinal: Soft, Tender (mild left abdomen), Non Distended and Other (LUQ CHAY drain; scant redbrown thick fluid; LLQ previous drain site with soft induration)
Extremities: Negative Edema
Neurological: AO x 3
Psychological: Other (down affect)
Objective Data
Lab Data
Lab Results
11/24/23 03:45
11/24/23 03:45
PT 18.9 Sec (11.4-14.6) H 11/21/23 23:05
INR 1.60 11/21/23 23:05
APTT Cancelled 11/23/23 10:30
Estimated Creat Clear 73 ml/min 11/24/23 03:45
Lactic Acid 1.6 mmol/L (0.7-2.0) 11/24/23 03:45
Total Bilirubin 0.3 mg/dl (0.2-1.3) 11/24/23 03:45
AST 18 U/L (17-59) 11/24/23 03:45
ALT 12 U/L (0-50) 11/24/23 03:45
Alkaline Phosphatase 105 U/L (38-126) 11/24/23 03:45
Most recent labs reviewed.
Micro Results:
11/23/23 13:15 Wound Culture - Preliminary
Abscess Gram negative bacilli
Gram Stain - Preliminary
11/21/23 13:39 Blood Culture - Preliminary
Blood/Venous No Growth in 48 hours- Final report to follow
11/21/23 13:40 Blood Culture - Preliminary
Blood/Venous No Growth in 48 hours- Final report to follow
11/21/23 CT a/p: Left-sided percutaneous drainage catheter extending across the midline to the right with overall decreased fluid density collection, including a component in the left midabdomen. Cannot exclude fistulous communication between the
portion of the abnormal fluid collection in the right abdomen/drainage catheter with the gallbladder. Prior colectomy with Ochoa pouch again identified. Diverting right lower quadrant ileostomy. High attenuation density within the rectum of
uncertain etiology. Cannot exclude fistulous communication between small bowel in the left abdomen and the distal colon.
[2023-11-24] MEDS: ROXICODONE 5 MG PO (10:35)
[2023-11-24] MEDS: ProAmatine 10 MG PO ×2 (13:41→17:38)
--- NOTE | 2023-11-24 14:01 | W.PN.CRS1 ---
Today's Communication / Plan
-
continue drain
abx per ID
HIDA scan tomorrow
Assessment/Plan
-
58-year-old male with PMH of COPD, CAD/AZ, DVT (on Eliquis), HTN, chronic mesenteric ischemia s/p aortic to SMA and celiac bypass in 2020 who had a recent prolonged admission for SMA graft thrombosis s/p exlap with SMA thrombectomy/patch angioplasty
on 09/12 with vascular surgery; c/b mesenteric ischemia and underwent an exlap, STC w/ SBR (of 70cm) on 09/20 with planned take-back on 09/22 with creation of end-ileostomy; postoperative course was complicated by a LUQ collection that was drained by
IR and had elevated lipase, a complete infarction of the spleen, hyponatremia due to SIADH, high ileostomy output and persistent LUQ collection requiring drain upsize. He was ultimately discharged on 10/23 with antibiotics and followed with ID. On
11/16, underwent a CT with IR drain exchange, CT showing the collection extending from LUQ to RUQ and compressing on the gallbladder (versus gallbladder fistula); s/p IR drain upsize/reposition on 11/19. On day of admission, c/o worsening abdominal
pain and no output from drain; in the ED, his WBC [address] scan was done showing the known upper abdominal collection with IR guided drain in place and slight improvement in size, as well as oral contrast in the distal colon concerning for
fistula development between small bowel and the Michael pouch
11/21/2023 - LUQ drain placement by IR
� No acute surgical intervention currently indicated; any surgery at this point would be extremely high risk; recommend continued nonoperative management of peripancreatic/upper abdominal fluid collection
� General surgery is following: RANDOLPH tentatively on Friday
� Vascular surgery: Unfortunately the collection and drain is in very close proximity to the prosthetic graft from the aorto-hepatic/SMA bypass. Graft infection risk is high. Continue ABX as there will be no option for graft removal in this patient.
� Recommend ID consult for antibiotics: there is no effective po abx option to suppress Pseudomonas (resistant to cipro/levofloxacin).
� Okay to advance diet from our standpoint.
� Continue hep drip; hold off on Eliquis in case further procedures are needed.
� Discussed above with patient and his ex- at the bedside.
� Appreciate hospitalist
Subjective Data
Subjective Data
Date of Service: November 24, 2023
Patient states he has no nausea or vomiting. He has pain in his left abdomen near his old drain site. His ostomy is producing stool. He has some mucus discharge from his rectum.
Objective Data
-
Vital Signs
Temp Pulse Resp BP Pulse Ox
99.1 F 82 17 108/61 97
11/24/23 11:43 11/24/23 07:30 11/24/23 07:30 11/24/23 07:20 11/23/23 19:39
Intake & Output
11/23/23 11/24/23 11/25/23
06:59 06:59 06:59
Intake Total 3540 / 3540 1989 / 1989 1350 / 1350
Output Total 1025 / 1025 1445 / 1445 590 / 590
Balance 2515 / 2515 545 / 545 760 / 760
Intake:
Oral fluids 1080 / 1080 180 / 180
IV fluids (Total) 2059 / 2059 1500 / 1500 1250 / 1250
IV piggybacks 400 / 400 300 / 300 100 / 100
Amount instilled into Drain (
Total)
Left Upper Abdomen B Placed in
IR
Output:
Liquid stool amount 750 / 750 1175 / 1175 300 / 300
Ileostomy 750 / 750 1175 / 1175 300 / 300
Drain Output (Total)
Left Upper Abdomen A
Left Upper Abdomen B Placed in
IR
Urine, Voided 275 / 275 250 / 250 280 / 280
Other:
Number of approximated MODERATE 3 1 1
amounts of urine
Lab Results
11/24/23 03:45
11/24/23 03:45
Physical Exam
-
General: No Acute Distress and AOx3
Abdomen: Soft, Non Distended and Tender (LUQ/LLQ mild tenderness. Ileostomy warm and pink with output. )
Skin: Warm and Dry
[2023-11-24] MEDS: MORPHINE SULFATE 2 MG IV (17:39)
--- NOTE | 2023-11-24 19:52 | PTCARENOTE ---
day shift note. sinus rythym on monitor. see am nursing assessment. left abd JPs flushed per order. no measurable drainage. pt c/o left upper abd discomfort. medicated as needed with adequate relief. ileostomy drained 750 mls liquid stool. pt weaned
off of levophed. iv heparin resumed at prior rate and ptt ordered for 193.
[2023-11-24 20:16] LABS: APTT 55.3 Sec (23.4-35.0)
[2023-11-24] MEDS: TYLENOL 650 MG PO (20:17)
[2023-11-24] MEDS: ROXICODONE 10 MG PO (20:23)
[2023-11-24] MEDS: AMBIEN 5 MG PO (20:46)
[2023-11-24] MEDS: DIFLUCAN 200 MG PO (20:46)
[2023-11-24] MEDS: HEPARIN 4600 UNITS IV (22:00)
[2023-11-25] VITALS (29 sets, daily range): BP systolic 86–132; BP diastolic 55–95; PULSE 90; BMI 19.8
[2023-11-25] MEDS: ROXICODONE 10 MG PO ×3 (02:24→20:46)
[2023-11-25] MEDS: ZOSYN 100 IV ×4 (02:24→20:34)
[2023-11-25 03:49] LABS: Hepatitis C Antibody Negative (Negative)
[2023-11-25 05:13] LABS: APTT 189.5 Sec (23.4-35.0)
[2023-11-25] MEDS: NSS 1000 IV (05:58)
[2023-11-25] MEDS: PROTONIX 40 MG PO (09:30)
[2023-11-25] MEDS: IMODIUM 2 MG PO ×2 (09:30→20:34)
[2023-11-25] MEDS: ASPIR LOW (ENTERIC COATED) 81 MG PO (09:30)
[2023-11-25] MEDS: SODIUM CHLORIDE 1 GRAM PO ×2 (09:30→20:34)
[2023-11-25] MEDS: ProAmatine PO ×3 (09:34→17:39)
[2023-11-25] MEDS: HEPARIN 25000 UNITS/250 ML IV (09:43)
--- NOTE | 2023-11-25 09:46 | W.PN.ID1 ---
Date of Service
Date of Service: November 25, 2023
Today's Communication
- agree with overall poor prognosis in the short term; particularly if Pseudomonas reidentified from the 11/22 culture. In that case, my estimation would be that patient has weeks to months to live. The infected SMA is not removable as per
Vascular. There is no effective po abx option to suppress Pseudomonas (resistant to cipro/levofloxacin). Lifelong IV antibiotic is not feasible. We can attempt a course of therapy x2 weeks and then if there is a relapse pursue hospice.
Alternatively hospice could be considered at this time.
Assessment / Plan
Recent total SMA graft occlusion, ischemic bowel, total splenic infarct
- s/p thrombectomy (performed through prior graft) & patch repair (09/13/23)
- s/p subtotal colectomy, colostomy (09/21/23)
- Sujatha peritonitis
- Pseudomonas (resistant to meropenem and quinolones) intra-abdominal abscesses s/p perc drains
- s/p IV abx's then suppressive Levofloxacin and fluconazole, as per Dr. Marks, due to suspected infected SMA graft, Per Vascular unable to remove graft.
Current hospitalization:
# Nondraining abdominal catheter despite upsizing 11/19
# Persistent left upper abdominal fluid collection
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
# Leukocytosis - improved
Plan:
- Appreciate surgery eval: overall poor prognosis. Too high risk surgical intervention.
- 11/24/23 s/p IR perc drainage 10cc pus. Cx: GNR, await ID, suspect Pseudomonas
- Continue Zosyn 4.5g IV q6hr (d5) and fluconazole 200mg po daily for now.
- QTc has been acceptable
- agree with overall poor prognosis in the short term; particularly if Pseudomonas reidentified from the 11/22 culture. In that case, my estimation would be that patient has weeks to months to live. The infected SMA is not removable as per
Vascular. There is no effective po abx option to suppress Pseudomonas (resistant to cipro/levofloxacin). Lifelong IV antibiotic is not feasible. We can attempt a course of therapy x2 weeks and then if there is a relapse pursue hospice.
Alternatively hospice could be considered at this time.
Chief Complaint
-: Other (abscess)
Subjective / Review of Systems
fevers ongoing
BP stable
leukocytosis improving
thrombocytosis persists
L shift resolved
cr 0.9
drain: both drain outputs recorded as minimal fluid
11/22 wound culture GNR: awaiting ID
Vital Signs / Physical Exam
Vital Signs
Vital Signs
Temp Pulse Resp BP Pulse Ox
98.5 F 97 14 113/73 97
11/25/23 02:54 11/25/23 09:34 11/25/23 07:00 11/25/23 09:34 11/24/23 10:00
Physical Exam
Constitutional: No Acute Distress and Chronically Ill
Cardiovascular: Regular Rate
Pulmonary: Symmetric, Wheezes and Non Labored
Gastrointestinal: Soft, Non Tender and Non Distended
Skin: Warm and Dry; Negative Rash or Jaundice
Neurological: Awake
Lines: Other (drain x2)
Objective Data
Lab Data
Lab Results
11/24/23 03:45
11/24/23 03:45
PT 18.9 Sec (11.4-14.6) H 11/21/23 23:05
INR 1.60 11/21/23 23:05
APTT 189.5 Sec (23.4-35.0) H* 11/25/23 04:44
Estimated Creat Clear 73 ml/min 11/24/23 03:45
Lactic Acid 1.6 mmol/L (0.7-2.0) 11/24/23 03:45
Total Bilirubin 0.3 mg/dl (0.2-1.3) 11/24/23 03:45
AST 18 U/L (17-59) 11/24/23 03:45
ALT 12 U/L (0-50) 11/24/23 03:45
Alkaline Phosphatase 105 U/L (38-126) 11/24/23 03:45
Most recent labs reviewed.
Micro Results:
11/21/23 13:39 Blood Culture - Preliminary
Blood/Venous No Growth in 72 hours- Final report to follow
11/21/23 13:40 Blood Culture - Preliminary
Blood/Venous No Growth in 72 hours- Final report to follow
11/23/23 13:15 Wound Culture - Preliminary
Abscess Gram negative bacilli
Gram Stain - Preliminary
11/21/23 CT a/p: Left-sided percutaneous drainage catheter extending across the midline to the right with overall decreased fluid density collection, including a component in the left midabdomen. Cannot exclude fistulous communication between the
portion of the abnormal fluid collection in the right abdomen/drainage catheter with the gallbladder. Prior colectomy with Ochoa pouch again identified. Diverting right lower quadrant ileostomy. High attenuation density within the rectum of
uncertain etiology. Cannot exclude fistulous communication between small bowel in the left abdomen and the distal colon.
[2023-11-25] MEDS: XYLOCAINE 1% 3 ML INFIL (09:48)
--- NOTE | 2023-11-25 12:15 | W.PN.CRS1 ---
Today's Communication / Plan
-
No plans for surgery
HIDA scan today
Bedside incision and drainage
Assessment/Plan
-
58-year-old male with PMH of COPD, CAD/NE, DVT (on Eliquis), HTN, chronic mesenteric ischemia s/p aortic to SMA and celiac bypass in 2020 who had a recent prolonged admission for SMA graft thrombosis s/p exlap with SMA thrombectomy/patch angioplasty
on 09/12 with vascular surgery; c/b mesenteric ischemia and underwent an exlap, STC w/ SBR (of 70cm) on 09/20 with planned take-back on 09/22 with creation of end-ileostomy; postoperative course was complicated by a LUQ collection that was drained by
IR and had elevated lipase, a complete infarction of the spleen, hyponatremia due to SIADH, high ileostomy output and persistent LUQ collection requiring drain upsize. He was ultimately discharged on 10/23 with antibiotics and followed with ID. On
11/16, underwent a CT with IR drain exchange, CT showing the collection extending from LUQ to RUQ and compressing on the gallbladder (versus gallbladder fistula); s/p IR drain upsize/reposition on 11/19. On day of admission, c/o worsening abdominal
pain and no output from drain; in the ED, his WBC [address] scan was done showing the known upper abdominal collection with IR guided drain in place and slight improvement in size, as well as oral contrast in the distal colon concerning for
fistula development between small bowel and the Michael pouch
11/21/2023 - LUQ drain placement by IR
� No acute surgical intervention currently indicated; any surgery at this point would be extremely high risk; recommend continued nonoperative management of peripancreatic/upper abdominal fluid collection
� General surgery is following: RANDOLPH tentatively today
� Vascular surgery: Unfortunately the collection and drain is in very close proximity to the prosthetic graft from the aorto-hepatic/SMA bypass. Graft infection risk is high. Continue ABX as there will be no option for graft removal in this patient.
� Recommend ID consult for antibiotics: there is no effective po abx option to suppress Pseudomonas (resistant to cipro/levofloxacin).
� Okay to advance diet from our standpoint.
� Continue hep drip; hold off on Eliquis in case further procedures are needed.
� Discussed above with patient at the bedside.
� Appreciate hospitalist
-Bedside incision and drainage performed on the left upper quadrant former drain site. Pus was evacuated. See operative note. Dressing changes daily or as needed.
Subjective Data
Subjective Data
Date of Service: November 25, 2023
Patient states his only complaint is left upper quadrant pain near his prior drain site. Otherwise his stoma is functioning. He has no diffuse abdominal pain. He denies nausea or vomiting.
Objective Data
-
Vital Signs
Temp Pulse Resp BP Pulse Ox
98.5 F 89 18 112/70 97
11/25/23 02:54 11/25/23 10:00 11/25/23 10:00 11/25/23 10:00 11/24/23 10:00
Intake & Output
11/24/23 11/25/23 11/26/23
06:59 06:59 06:59
Intake Total 1989 3170 / 3170
Output Total 1445 / 1445 1640 / 1640
Balance 545 / 545 1530 / 1530
Intake:
Oral fluids 180 / 180 800 / 800
IV fluids (Total) 1500 / 1500 2250 / 2250
IV piggybacks 300 / 300 100 / 100
Amount instilled into Drain (
Total)
Left Upper Abdomen A
Left Upper Abdomen B Placed in
IR
Output:
Liquid stool amount 1175 / 1175 1050 / 1050
Ileostomy 1175 / 1175 1050 / 1050
Drain Output (Total)
Left Upper Abdomen A
Left Upper Abdomen B Placed in
IR
Urine, Voided 250 / 250 580 / 580
Other:
Number of approximated MODERATE 1 1
amounts of urine
Lab Results
11/24/23 03:45
11/24/23 03:45
Physical Exam
-
General: No Acute Distress and AOx3
Abdomen: Soft, Non Distended, Tender (Left upper quadrant near former drain site, erythema surrounding the drain site with induration) and Other (Stoma warm and pink with function)
Skin: Warm and Dry
Wound: Other (Left upper quadrant former drain site wound tender to touch)
--- NOTE | 2023-11-25 12:18 | W.IMMPOSTOP ---
Surgical Immed Post Op Note
-
Primary Surgeon: Jt Andrews MD
Assisting Surgeon: Analisa Zuniga PA-C
Pre-op Diagnosis: LUQ drain site abscess
Post-op Diagnosis: LUQ drain site abscess
Procedure Performed: Incision and drainage of drain abscess
Anesthesia Type: Lidocaine 1%
Specimen / Cultures: none
Estimated Blood Loss: 1cc
Complications: none
Operative Findings: about 5cc of aurora green pus evacuated from site, gauze with saline packed into wound, gauze 4x4 on top with tape
[2023-11-25 13:21] LABS: APTT 66.5 Sec (23.4-35.0)
[2023-11-25] MEDS: HEPARIN 2300 UNITS IV (13:40)
--- NOTE | 2023-11-25 14:41 | PTCARENOTE ---
Patient AAOx3. RA 98%. VSS. Levo has been off. Heparin infusing and being managed per protocol. Illeostomy CDI with small brown stool. 2 left CHAY drains with small choe/green/brown drainage. LLQ Abdominal abscess opened, cleaned and packed at bedside
by MD Andrews at 1000, dressing CDI, reinforced once. HIDA scan done. Pain reported by patient near drains/abscess, see PRN MAR documentation. Patient reports having some small stool drainage from rectum at times, will monitor, none today. Patient
making needs known. Continuing to closely monitor.
Patient expressed frustration about conflicting recommendations from providers in different specialties. Tried to clarify recommendations based on provider conversations and each specialties notes. Briefly discussed aspects of hospice and
recommended patient bring in his support system if he is feeling overwhelmed. Patient stressed many times that he is not ready to and wants to try every last thing to live and is not ready to give up yet. Patient requested instructions for
creating a living will, CM to provide patient with information. Will continue to provide support to patient.
--- NOTE | 2023-11-25 16:35 | W.PN.HOSP.TC ---
Today's Communication/Plan
-
see note
Assessment / Plan
Assessment / Plan
Intra-abdominal abscess
- s/p upsized drain 11/19 by IR outpatient to 14 Fr but not output
- CT abdomen/pelvis: Left-sided percutaneous drainage catheter extending across the midline to the right with overall decreased fluid density collection, including a component in the left midabdomen. Cannot exclude fistulous communication between
the portion of the abnormal fluid collection in the right abdomen/drainage catheter with the gallbladder. Prior colectomy with Ochoa pouch again identified. Diverting right lower quadrant ileostomy. High attenuation density within the rectum of
uncertain etiology. Cannot exclude fistulous communication between small bowel in the left abdomen and the distal colon.
-General surgery evaluated as well and no surgical interventions at this point
-11/22 interventional radiology was able to place a left upper quadrant 12 Kyr[place]z drain. With drainage of thick purulent brown fluid coming out. Right upper quadrant collection not drained as small and patient discomfort limiting attempt.
-Currently on IV Zosyn. Patient eventually require suppressive levofloxacin and fluconazole therapy as suspicion of infected SMA graft. Vascular surgery unable to remove graft due to high risk
-CHAY drain culture growing gram-negative bacilli suspected of drug-resistant Pseudomonas. Patient prognosis is poor as would require to be maintained on IV antibiotics lifelong which is not possible. There is no oral abx option available based on
previous culture report.
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
-General surgery evaluated and recommended conservative management
-CRS evaluated and no surgical intervention recommended
GB fistula
-Possible 1 of left upper quadrant CHAY drain tip in gallbladder
-Unsafe to be pulled out as will call biliary leak
-HIDA scan did not show any billary leak
Hyponatremia
- slowly improving, f/u levels.
Essential HTN
- hold Diltiazem
- NSS for now due to hypotension; may need low dose pressors
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
- s/p Exploratory laparotomy, lysis of adhesions, aorto-mesenteric bypass Tona thrombectomy, mesenteric arteriogram, patch angioplasty of aorto-mesenteric bypass 09/12
- CT with IV contrast: SMA limb of the bypass appears patent. Hepatic limb is known to be thrombosed. distal SMA branches fill.
- per Vascular: collection and drain is in very close proximity to the prosthetic graft from the aorto-hepatic/SMA bypass. Graft infection risk is high. Continue ABX as there will be no option for graft removal in this patient.
- will resume Eliquis from tomorrow on likely no surgical intervention warranted at this point
recent Ischemic bowel c/b necrotic bowel
- s/p ex-lap 09/20: Necrotic and perforated entire transverse colon, ischemic right colon and terminal ileum, ischemic left colon, ? ischemia of the proximal jejunum. 70 cm terminal colon with entire right colon, transverse colon and descending colon
removed.
- s/p 2nd look ex-lap 09/22 with Murky fluid throughout the abdomen, viable remaining small intestine with excellent Doppler signals, Haily ileostomy
Hx GI bleed related to ischemic colitis
- continue PPI
- Hb 11.8
COPD, without acute exacerbation
Nicotine abuse
- cessation advised
CAD/ NSTEMI Hx
- continue aspirin 81 mg daily
Hyperbilirubinemia hx
History of possible Gilbert's
Hx occlusive thrombus left arm throughout cephalic vein, antecubital fossa, distal aspect upper arm 09/28/23
previous Hx DVT status post apixaban 04/18/2021 post left knee surgery
- hold Eliquis; start IV heparin drip pending decisions on procedural intervention.
Chronic back pain history height loss superior endplate T12 L4
Insomnia
- continue zolpidem 5 mg at bedtime
Cachexia 2/2 to protein malnutrition
- bmi 17.8kg
- consult nutrition
Hx vent dependent respiratory failure with extubation resolved 09/27/2023
DVT prophylaxis: IV hep gtt
Code: Full
Patient prognosis is poor. Briefly hospice plan was discussed although patient strongly wants to continue all medical interventions as possible.
Discussed with ID and colorectal surgeon as well.
Total time spent : 52 mins
Anticipated Discharge: > 48 hours
Subjective/Interval History
-
Date of Service: November 25, 2023
Patient depressed and tearful over discussion regarding prognosis
continues to have pain
no nausea/vomiting
Objective Data
-
Labs:
Laboratory Results
11/25/23 11/25/23 11/25/23
04:44 12:56 20:00
APTT 189.5 H* 66.5 H Pending
Vital Signs:
Vital Signs
Temp Pulse Resp BP Pulse Ox
99.3 F 86 18 116/73 97
11/25/23 15:33 11/25/23 16:00 11/25/23 16:00 11/25/23 15:01 11/25/23 16:00
I&O
11/24/23 11/25/23 11/26/23
06:59 06:59 06:59
Intake Total 1989 3170 / 3170
Output Total 1445 / 1445 1640 / 1640 600 / 600
Balance 545 / 545 1530 / 1530 -600 / -600
Review of Systems
-
Respiratory: Reports No Symptoms
Cardiac: Reports No Symptoms
Abdomen/GI: Reports Abdominal Pain; Denies Nausea or Vomiting
Physical Exam
-
General: No Apparent Distress
Cardiac: Regular Rhythm and S1/S2; Negative Murmur
GI: Soft, Normal Bowel Sounds, Tender and Other (Left upper quadrant CHAY drain x 2, dark brownish drainage)
Musculoskeletal: No Edema
Neuro: Awake, Alert and AO x 3
Psych: Calm
--- NOTE | 2023-11-25 17:37 | CM ---
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 HIDA scan today. Receiving Heparin gtt, IV Abx. CHAY drains. Patient seen by Psych due to poor prognosis. PT & OT recommend HH.
Met with patient, and daughter; patient provided with Advanced Directive on request with instruction to provide to nurse once completed, so copy can be made for the chart.
Patient & expressing both discouragement and hope about patient's infection, with the hope of returning home soon.
Plan home with resumption [facility].
[2023-11-25] MEDS: DIFLUCAN 200 MG PO (20:34)
[2023-11-25] MEDS: AMBIEN 5 MG PO (20:34)
[2023-11-25 20:38] LABS: APTT 92.9 Sec (23.4-35.0)
--- NOTE | 2023-11-25 20:49 | PTCARENOTE ---
Received pt from isiah BARBOS[facility]. Pt is AAOx3, flat. NSR on the monitor. On RA O2 sat 94%, lungs clear. Poor appetite, right ileostomy, left lexx drains x2. Heparin gtt infusing @ 1300 units/hr. Pt c/o pain, PRN pain medication given (see MAR). Pt is
laying in bed with call antonio in reach.
[2023-11-26] VITALS (13 sets, daily range): BP systolic 87–143; BP diastolic 58–79; BMI 19.7
[2023-11-26] MEDS: ROXICODONE 10 MG PO ×3 (02:21→19:28)
[2023-11-26] MEDS: ZOSYN 100 IV ×4 (02:21→20:15)
[2023-11-26 03:37] LABS: Hematocrit 26.8 % (39.0-52.0); Mean Corp Hgb Conc. 33.6 g/dL (33.0-37.0); Mean Corpuscular Volume 86.5 fL (80.0-94.0); Mean Platelet Volume 8.9 fL (7.4-10.4); Platelet Count 637 10^3/uL (130-400); Red Cell Dist. Width 18.6 % (11.5-14.5); White Blood Cell Count 13.6 10^3/uL (4.8-10.8)
[2023-11-26 04:01] LABS: Blood Urea Nitrogen 3 mg/dl (9-20); Calcium 7.6 mg/dl (8.4-10.2); Carbon Dioxide 21 mmol/L (22-30); Chloride 103 mmol/L (98-107); Estimated Creatinine Clearance 119 ml/min; Glucose 81 mg/dl (70-99); Potassium 3.2 mmol/L (3.5-5.1); Sodium 131 mmol/L (135-145); eGFR > 60.00
[2023-11-26] MEDS: HEPARIN 25000 UNITS/250 ML IV (05:30)
[2023-11-26] MEDS: KCL 40 MEQ PO (05:31)
[2023-11-26] MEDS: PROTONIX 40 MG PO (08:43)
[2023-11-26] MEDS: IMODIUM 2 MG PO ×2 (08:43→20:15)
[2023-11-26] MEDS: SODIUM CHLORIDE 1 GRAM PO ×2 (08:43→21:48)
[2023-11-26] MEDS: ProAmatine 10 MG PO (08:44)
[2023-11-26] MEDS: ASPIR LOW (ENTERIC COATED) 81 MG PO (08:44)
--- NOTE | 2023-11-26 09:03 | W.PN.CRS1 ---
Today's Communication / Plan
-
F/u gen surg input regarding gallbladder fistula, may need MRCP
Trend WBC, cont abx, appreciate ID
Cont reg today, no procedures planned
Assessment/Plan
-
58-year-old male with PMH of COPD, CAD/HI, DVT (on Eliquis), HTN, chronic mesenteric ischemia s/p aortic to SMA and celiac bypass in 2020 who had a recent prolonged admission for SMA graft thrombosis s/p exlap with SMA thrombectomy/patch angioplasty
on 09/12 with vascular surgery; c/b mesenteric ischemia and underwent an exlap, STC w/ SBR (of 70cm) on 09/20 with planned take-back on 09/22 with creation of end-ileostomy; postoperative course was complicated by a LUQ collection that was drained by
IR and had elevated lipase, a complete infarction of the spleen, hyponatremia due to SIADH, high ileostomy output and persistent LUQ collection requiring drain upsize. He was ultimately discharged on 10/23 with antibiotics and followed with ID. On
11/16, underwent a CT with IR drain exchange, CT showing the collection extending from LUQ to RUQ and compressing on the gallbladder (versus gallbladder fistula); s/p IR drain upsize/reposition on 11/19. On day of admission, c/o worsening abdominal
pain and no output from drain; in the ED, his WBC [address] scan was done showing the known upper abdominal collection with IR guided drain in place and slight improvement in size, as well as oral contrast in the distal colon concerning for
fistula development between small bowel and the Michael pouch
� No acute surgical intervention currently indicated; any surgery at this point would be extremely high risk
-S/p I&D of superficial left abdominal abscess on 11/25, cont packing
� Appreciate general surgery for peripancreatic fluid collection and possible gallbladder fistula
�HIDA showing contrast to duo without obstruction; unclear if contrast leak to IR drain;d/w Linson, may need MRCP to evaluate further, will discuss
�Likely will repeat CT in a few days
� Appreciate vascular surgery for concern of infected aorto�SMA graft
�No operative options for graft removal; continue long-term antibiotics; following peripherally
�Appreciate ID consult for antibiotics
�Continue IV Zosyn and fluconazole; follow-up cultures
�'Lifelong IV antibiotic is not feasible.'
�Follow leukocytosis and clinical status
� For possible small bowel to colon fistula, no intervention currently needed; will look for evidence of malnutrition
� Continue reg diet
�Continue hep drip; hold off on Eliquis in case further procedures are needed
� Appreciate hospitalist
Subjective Data
Subjective Data
Date of Service: November 26, 2023
No overnight events.
Pain controlled.
Denies nausea/vomiting. Tolerating diet.
+ Ostomy function +voiding
Objective Data
-
Vital Signs
Temp Pulse Resp BP Pulse Ox
98.6 F 93 15 93/65 94
11/26/23 07:37 11/26/23 08:00 11/26/23 08:00 11/26/23 08:00 11/25/23 22:14
Intake & Output
11/25/23 11/26/23 11/27/23
06:59 06:59 06:59
Intake Total 3170 / 3170 630 / 630
Output Total 1640 / 1640 1072 / 1072
Balance 1530 / 1530 -442 / -442
Intake:
Oral fluids 800 / 800 410 / 410
IV fluids (Total) 2250 / 2250
IV piggybacks 100 / 100 200 / 200
Amount instilled into Drain ( 20 / 20 20 / 20
Total)
Left Upper Abdomen A
Left Upper Abdomen B Placed in
IR
Output:
Liquid stool amount 1050 / 1050 400 / 400
Ileostomy 1050 / 1050 400 / 400
Drain Output (Total)
Left Upper Abdomen A 2 / 2
Left Upper Abdomen B Placed in
IR
Urine, Voided 580 / 580 660 / 660
Other:
Number of approximated MODERATE 1
amounts of urine
Lab Results
11/26/23 03:12
11/26/23 03:12
Physical Exam
-
General: No Acute Distress and AOx3
HEENT: Grossly Normal
Abdomen: Soft, Non Distended, Tender (Mildly to moderately tender near I&D site in the left mid abdomen, nontender and remainder of abdomen), No Rebound and No Bowel Movement
Skin: Warm and Dry
Wound: Other (Left mid abdomen I&D site with dark aguilar purulent drainage, packing changed)
--- NOTE | 2023-11-26 10:16 | PN.CDI ---
CDI
- -
CDI:
Physician Documentation Request
Admit Date: 11/21/23 15:28
Dear Doctor Calos,
Clinical Indicators:
Patient admitted with Intra-abdominal abscess.
11/23 (03:31) RN note, 'BP 88/53 MAP 63 after 500 bolus...Levophed gtt initiated at ordered dose.'
11/23 Levophed requirements: 1-2 mcg/min x 4hrs.
BP trend:
11/24/23
02:00 11/24/23
02:58 11/24/23
03:30
Blood pressure 85/55 88/53 88/60
Please clarify which of the following is the most likely etiology of the above symptoms and treatment rendered:
Shock (please specify type)
Hypotension only
Other, please specify
Use of terms such as suspected, likely, concern for, or probable (associated with a specific diagnosis that is being evaluated, monitored, or treated as if it exists) are acceptable and can be coded in the inpatient setting, when documented at the
time of discharge.
Thank you,
MARSHA Lawson RN
CDI Specialist
Please use your independent medical judgment in providing your response.
--- NOTE | 2023-11-26 11:01 | W.PN.UPDATE ---
Update Note
Progress Note Update
patient seen chart reviewed. discussed with nursing and with dr trevizo. the patient told me immediately that 'Hospice' had been suggested but he said he was not clear on what that meant. he said several doctors had told him this including dr "Hudson"tenzin. i said i would speak with her and try to clarify what exactly she meant. i spoke with her and explained to him what the relevant issues were and that dr perera would be coming back to see him later today. he told me of his discussions with "Hudson"his children have been. his daughter was very tearful with him saying she wanted him to see her children and be their 'pop pop'. he is very close to his ex who is very supportive of him and he of her. he says he is not afraid to but he
does not want to give up either if there is a shred of hope. he is considering going to [place] for another opinion. he says he even might choose surgery if that is the only option even if there is only a 'ten percent survivial rate'. he says he would
never consider killing himself no matter how things go and told me about his gun collection. 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 patient said he does not need 'psych meds' but he seemed
to need to talking about his feelings so i will come back tomorrow so he can talk some more.
--- NOTE | 2023-11-26 12:44 | PTCARENOTE ---
CHAY drains flushed as ordered, specimens collected from both as well. Sent as 'add - on ' per lab and specimens labeled as directed and taken to lab by staff.
LLQ dressing saturated, whole dressing came off- cleansed and replaced under sterile technique. TT to Analisa Zuniga.
Ileostomy emptied x2 this shift. C/o pain, mostly left abdominal 'inside'- med intervention provided. Encourage oob - declines at this time but will try today. Emotional support provided. Family present now.
[2023-11-26] MEDS: ProAmatine PO ×2 (13:27→17:49)
--- NOTE | 2023-11-26 13:52 | W.PN.ID1 ---
Date of Service
Date of Service: November 26, 2023
Today's Communication
- poor prognosis in the short term; particularly if Pseudomonas reidentified from the 11/22 culture. In that case, my estimation would be that patient has weeks to months to live. The infected SMA is not removable as per Vascular. There is no
effective po abx option to suppress Pseudomonas (resistant to cipro/levofloxacin). Lifelong IV antibiotic is not feasible. We can attempt a course of therapy x2 weeks and then if there is a relapse pursue hospice. Alternatively hospice could be
considered at this time.
Assessment / Plan
Recent total SMA graft occlusion, ischemic bowel, total splenic infarct
- s/p thrombectomy (performed through prior graft) & patch repair (09/13/23)
- s/p subtotal colectomy, colostomy (09/21/23)
- Sujatha peritonitis
- Pseudomonas (resistant to meropenem and quinolones) intra-abdominal abscesses s/p perc drains
- had progression despite trial of suppression
- per Vascular unable to remove graft
Current hospitalization:
# Nondraining abdominal catheter despite upsizing 11/19
# Persistent left upper abdominal fluid collection
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
# Leukocytosis - improved
Plan:
- Appreciate surgery eval: overall poor prognosis. Too high risk surgical intervention.
- 11/24/23 s/p IR perc drainage 10cc pus. Cx: GNR, await ID, suspect Pseudomonas
- Continue Zosyn 4.5g IV q6hr (d5) and fluconazole 200mg po daily for now.
- QTc has been acceptable
- poor prognosis in the short term; particularly if Pseudomonas reidentified from the 11/22 culture. In that case, my estimation would be that patient has weeks to months to live. The infected SMA is not removable as per Vascular. There is no
effective po abx option to suppress Pseudomonas (resistant to cipro/levofloxacin). Lifelong IV antibiotic is not feasible. We can attempt a course of therapy x2 weeks and then if there is a relapse pursue hospice. Alternatively hospice could be
considered at this time.
Chief Complaint
-: Other (abscess)
Subjective / Review of Systems
afebrile
bp stable
declining leukocytosis
Vital Signs / Physical Exam
Vital Signs
Vital Signs
Temp Pulse Resp BP Pulse Ox
98.6 F 88 23 102/68 94
11/26/23 07:37 11/26/23 10:00 11/26/23 10:00 11/26/23 13:27 11/25/23 22:14
Physical Exam
Constitutional: No Acute Distress
Cardiovascular: Regular Rate
Pulmonary: Symmetric and Non Labored
Gastrointestinal: Non Distended
Neurological: Awake
Objective Data
Lab Data
Lab Results
11/26/23 03:12
11/26/23 03:12
PT 18.9 Sec (11.4-14.6) H 11/21/23 23:05
INR 1.60 11/21/23 23:05
APTT 87.0 Sec (23.4-35.0) H 11/26/23 03:12
Estimated Creat Clear 119 ml/min 11/26/23 03:12
Lactic Acid 1.6 mmol/L (0.7-2.0) 11/24/23 03:45
Total Bilirubin 0.3 mg/dl (0.2-1.3) 11/24/23 03:45
AST 18 U/L (17-59) 11/24/23 03:45
ALT 12 U/L (0-50) 11/24/23 03:45
Alkaline Phosphatase 105 U/L (38-126) 11/24/23 03:45
Most recent labs reviewed.
Micro Results:
11/21/23 13:39 Blood Culture - Final
Blood/Venous No Growth - Final Report
11/21/23 13:40 Blood Culture - Final
Blood/Venous No Growth - Final Report
11/23/23 13:15 Wound Culture - Preliminary
Abscess Gram negative bacilli
Gram Stain - Preliminary
11/21/23 CT a/p: Left-sided percutaneous drainage catheter extending across the midline to the right with overall decreased fluid density collection, including a component in the left midabdomen. Cannot exclude fistulous communication between the
portion of the abnormal fluid collection in the right abdomen/drainage catheter with the gallbladder. Prior colectomy with Ochoa pouch again identified. Diverting right lower quadrant ileostomy. High attenuation density within the rectum of
uncertain etiology. Cannot exclude fistulous communication between small bowel in the left abdomen and the distal colon.
Care Review
Plan reviewed with: Physician (Dr Stewart - medical rx)
--- NOTE | 2023-11-26 14:11 | W.PN.HOSP.TC ---
Today's Communication/Plan
-
f/u fluid culture report
continue abx
check CHAY drain output for bile acids/bilirubin
Assessment / Plan
Assessment / Plan
Intra-abdominal abscess
- s/p upsized drain 11/19 by IR outpatient to 14 Fr but not output
- CT abdomen/pelvis: Left-sided percutaneous drainage catheter extending across the midline to the right with overall decreased fluid density collection, including a component in the left midabdomen. Cannot exclude fistulous communication between
the portion of the abnormal fluid collection in the right abdomen/drainage catheter with the gallbladder. Prior colectomy with Ochoa pouch again identified. Diverting right lower quadrant ileostomy. High attenuation density within the rectum of
uncertain etiology. Cannot exclude fistulous communication between small bowel in the left abdomen and the distal colon.
-General surgery evaluated as well and no surgical interventions at this point
-11/22 interventional radiology was able to place a left upper quadrant 12 Chadian drain. With drainage of thick purulent brown fluid coming out. Right upper quadrant collection not drained as small and patient discomfort limiting attempt.
-Currently on IV Zosyn. Patient eventually require suppressive levofloxacin and fluconazole therapy as suspicion of infected SMA graft. Vascular surgery unable to remove graft due to high risk
-CHAY drain culture growing gram-negative bacilli suspected of drug-resistant Pseudomonas. Patient prognosis is poor as would require to be maintained on IV antibiotics lifelong which is not possible. There is no oral abx option available based on
previous culture report.
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
-General surgery evaluated and recommended conservative management
-CRS evaluated and no surgical intervention recommended
GB fistula
-Possible 1 of left upper quadrant CHAY drain tip in gallbladder
-Unsafe to be pulled out as will call biliary leak
-HIDA scan did not show any biliary leak,
-Check CHAY drain fluid for bilirubin
Hyponatremia
- slowly improving, f/u levels.
Essential HTN
-BP remains soft, no symptoms. off of HTN meds.
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
- s/p Exploratory laparotomy, lysis of adhesions, aorto-mesenteric bypass Tona thrombectomy, mesenteric arteriogram, patch angioplasty of aorto-mesenteric bypass 09/12
- CT with IV contrast: SMA limb of the bypass appears patent. Hepatic limb is known to be thrombosed. distal SMA branches fill.
- per Vascular: collection and drain is in very close proximity to the prosthetic graft from the aorto-hepatic/SMA bypass. Graft infection risk is high. Continue ABX as there will be no option for graft removal in this patient.
- will resume Eliquis from tomorrow on likely no surgical intervention warranted at this point
recent Ischemic bowel c/b necrotic bowel
- s/p ex-lap 09/20: Necrotic and perforated entire transverse colon, ischemic right colon and terminal ileum, ischemic left colon, ? ischemia of the proximal jejunum. 70 cm terminal colon with entire right colon, transverse colon and descending colon
removed.
- s/p 2nd look ex-lap 09/22 with Murky fluid throughout the abdomen, viable remaining small intestine with excellent Doppler signals, Haily ileostomy
Hx GI bleed related to ischemic colitis
- continue PPI
- Hb 11.8
COPD, without acute exacerbation
Nicotine abuse
- cessation advised
CAD/ NSTEMI Hx
- continue aspirin 81 mg daily
Hyperbilirubinemia hx
History of possible Gilbert's
Hx occlusive thrombus left arm throughout cephalic vein, antecubital fossa, distal aspect upper arm 09/28/23
previous Hx DVT status post apixaban 04/18/2021 post left knee surgery
- hold Eliquis; start IV heparin drip pending decisions on procedural intervention.
Chronic back pain history height loss superior endplate T12 L4
Insomnia
- continue zolpidem 5 mg at bedtime
Cachexia 2/2 to protein malnutrition
- bmi 17.8kg
- consult nutrition
Hx vent dependent respiratory failure with extubation resolved 09/27/2023
DVT prophylaxis: IV hep gtt
Code: Full
11/24 Patient prognosis is poor. Briefly hospice plan was discussed although patient strongly wants to continue all medical interventions as possible.Discussed with ID and colorectal surgeon as well.
Anticipated Discharge: > 48 hours
Subjective/Interval History
-
Date of Service: November 26, 2023
Afebrile overnight
not voicing any complains
Objective Data
-
Labs:
Laboratory Results
11/26/23
03:12
WBC 13.6 H
Hgb 9.0 L
Hct 26.8 L
Plt Count 637 H
APTT 87.0 H
Sodium 131 L
Potassium 3.2 L
Chloride 103
Carbon Dioxide 21 L
BUN 3 L
Creatinine 0.6 L
Glucose 81
Calcium 7.6 L
Vital Signs:
Vital Signs
Temp Pulse Resp BP Pulse Ox
98.6 F 88 23 102/68 94
11/26/23 07:37 11/26/23 10:00 11/26/23 10:00 11/26/23 13:27 11/25/23 22:14
I&O
11/25/23 11/26/23 11/27/23
06:59 06:59 06:59
Intake Total 3170 / 3170 630 / 630 120 / 120
Output Total 1640 / 1640 1072 / 1072 300 / 300
Balance 1530 / 1530 -442 / -442 -180 / -180
Review of Systems
-
Respiratory: Reports No Symptoms
Cardiac: Reports No Symptoms
Abdomen/GI: Reports No Symptoms
Physical Exam
-
General: No Apparent Distress
Cardiac: Regular Rhythm and S1/S2; Negative Murmur
GI: Soft, Normal Bowel Sounds, Tender and Other (Left upper quadrant CHAY drain x 2, dark brownish drainage, left periumbilical area dressing in place )
Musculoskeletal: No Edema
Neuro: Awake, Alert and AO x 3
Psych: Calm
--- NOTE | 2023-11-26 17:54 | PTCARENOTE ---
Report given to Kimberly - transfer to 2114.
--- NOTE | 2023-11-26 18:40 | PTCARENOTE ---
1814: Patient arrived to 2S. Full head to toe assessment completed. Heparin gtt running at 1,300 units/hr. Bed in lowest position and call antonio within reach.
[2023-11-26] MEDS: ELIQUIS 5 MG PO (20:15)
[2023-11-26] MEDS: DIFLUCAN 200 MG PO (21:48)
[2023-11-26] MEDS: AMBIEN 5 MG PO (21:48)
[2023-11-27] MEDS: ZOSYN 100 IV ×2 (02:23→08:41)
[2023-11-27] MEDS: ROXICODONE 10 MG PO ×3 (02:27→16:38)
[2023-11-27 06:00] VITALS: BMI 19.6
[2023-11-27 07:25] VITALS: BP 119/72
[2023-11-27 08:27] LABS: Hemoglobin 9.4 g/dL (13.0-18.0); Mean Corp Hgb Conc. 33.6 g/dL (33.0-37.0); Mean Corpuscular Hgb 29.7 pg (27.0-31.0); Mean Corpuscular Volume 88.3 fL (80.0-94.0); Platelet Count 686 10^3/uL (130-400); Red Blood Cell Count 3.17 10^6/uL (4.70-6.10); White Blood Cell Count 13.3 10^3/uL (4.8-10.8)
[2023-11-27 08:35] LABS: APTT 46.8 Sec (23.4-35.0)
[2023-11-27] MEDS: ELIQUIS 5 MG PO (08:40)
[2023-11-27] MEDS: ASPIR LOW (ENTERIC COATED) 81 MG PO (08:40)
[2023-11-27] MEDS: ProAmatine PO ×2 (08:40→13:44)
[2023-11-27] MEDS: PROTONIX 40 MG PO (08:41)
[2023-11-27] MEDS: SODIUM CHLORIDE 1 GRAM PO (08:41)
[2023-11-27] MEDS: IMODIUM 2 MG PO (08:41)
[2023-11-27 08:52] LABS: Blood Urea Nitrogen 2 mg/dl (9-20); Calcium 7.7 mg/dl (8.4-10.2); Carbon Dioxide 26 mmol/L (22-30); Chloride 103 mmol/L (98-107); Estimated Creatinine Clearance 118 ml/min; Glucose 120 mg/dl (70-99); Potassium 3.6 mmol/L (3.5-5.1); Sodium 132 mmol/L (135-145); eGFR > 60.00
--- NOTE | 2023-11-27 11:19 | W.PN.UPDATE ---
Update Note
Progress Note Update
patient seen chart reviewed. spoke with nursing. the situation for mr angel has not changed. he is hoping he will be dc to home with iv antibiotics in the very near future and his plan is to go to [place] for consultation to leave no stone
unturned. he had spoken about making a will and i was able to provide him with information as to how to write your own will so it will be valid in [place]. he spoke of how he wants to spend his last days if indeed his time is to be short. he will stay
w his ex where some of his kids live so as to be near them. he also spoke of issues with one of his children which pain him. he will consider hospice to help him as he nears the end. he does not feel he needs psychotropic medication nor do i
feel he needs it. he expressed concern about being in pain reassured him hospice is equipped to deal w this and he should not wait until the last moment to consult them. psych will sign off as he believes he will be dc in the very near future.
--- NOTE | 2023-11-27 13:13 | W.PN.HOSP.TC ---
Addendum entered and electronically signed by Juan Live MD 11/27/23 18:50:
Add on to diagnosis list:
Septic shock
Moderate protein calorie malnutrition
Original Note:
Today's Communication/Plan
-
see note
Assessment / Plan
Assessment / Plan
Intra-abdominal abscess
- s/p upsized drain 11/19 by IR outpatient to 14 Fr but not output
- CT abdomen/pelvis: Left-sided percutaneous drainage catheter extending across the midline to the right with overall decreased fluid density collection, including a component in the left midabdomen. Cannot exclude fistulous communication between
the portion of the abnormal fluid collection in the right abdomen/drainage catheter with the gallbladder. Prior colectomy with Ochoa pouch again identified. Diverting right lower quadrant ileostomy. High attenuation density within the rectum of
uncertain etiology. Cannot exclude fistulous communication between small bowel in the left abdomen and the distal colon.
-General surgery evaluated as well and no surgical interventions at this point
-11/22 interventional radiology was able to place a left upper quadrant 12 Serbian drain. With drainage of thick purulent brown fluid coming out. Right upper quadrant collection not drained as small and patient discomfort limiting attempt.
-Patient have underlying presumed infected SMA graft and not amenable to repeat surgical intervention.
-CHAY drain culture growing multidrug resistant Pseudomonas which is not sensitive to Merrem/Zosyn/cefepime. Discussed with ID and no true antibiotic treatment option available .
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
-General surgery evaluated and recommended conservative management
-CRS evaluated and no surgical intervention recommended
GB fistula
-Possible 1 of left upper quadrant CHAY drain tip in gallbladder
-Unsafe to be pulled out as will call biliary leak
-HIDA scan did not show any biliary leak,
-Check CHAY drain fluid for bilirubin
Hyponatremia
- slowly improving, f/u levels.
Essential HTN
-BP remains soft, no symptoms. off of HTN meds.
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
- s/p Exploratory laparotomy, lysis of adhesions, aorto-mesenteric bypass Tona thrombectomy, mesenteric arteriogram, patch angioplasty of aorto-mesenteric bypass 09/12
- CT with IV contrast: SMA limb of the bypass appears patent. Hepatic limb is known to be thrombosed. distal SMA branches fill.
- per Vascular: collection and drain is in very close proximity to the prosthetic graft from the aorto-hepatic/SMA bypass. Graft infection risk is high. Continue ABX as there will be no option for graft removal in this patient.
- will resume Eliquis from tomorrow on likely no surgical intervention warranted at this point
recent Ischemic bowel c/b necrotic bowel
- s/p ex-lap 09/20: Necrotic and perforated entire transverse colon, ischemic right colon and terminal ileum, ischemic left colon, ? ischemia of the proximal jejunum. 70 cm terminal colon with entire right colon, transverse colon and descending colon
removed.
- s/p 2nd look ex-lap 09/22 with Murky fluid throughout the abdomen, viable remaining small intestine with excellent Doppler signals, Haily ileostomy
Hx GI bleed related to ischemic colitis
- continue PPI
- Hb 11.8
COPD, without acute exacerbation
Nicotine abuse
- cessation advised
CAD/ NSTEMI Hx
- continue aspirin 81 mg daily
Hyperbilirubinemia hx
History of possible Gilbert's
Hx occlusive thrombus left arm throughout cephalic vein, antecubital fossa, distal aspect upper arm 09/28/23
previous Hx DVT status post apixaban 04/18/2021 post left knee surgery
- hold Eliquis; start IV heparin drip pending decisions on procedural intervention.
Chronic back pain history height loss superior endplate T12 L4
Insomnia
- continue zolpidem 5 mg at bedtime
Cachexia 2/2 to protein malnutrition
- bmi 17.8kg
- consult nutrition
Hx vent dependent respiratory failure with extubation resolved 09/27/2023
DVT prophylaxis: IV hep gtt
Code: Full
11/24 Patient prognosis is poor. Briefly hospice plan was discussed although patient strongly wants to continue all medical interventions as possible.Discussed with ID and colorectal surgeon as well.
11/26 CHAY drain fluid culture growing MDR Pseudomonas not sensitive to Zosyn/cefepime/Merrem. There is no true curative antibiotic treatment available patient will need hospice at this point.
Discussed with ID and is planning to see the patient and discuss culture findings reports.
Will involve hospice staff based on discussion outcome.
Anticipated Discharge: Within 24 hours
Subjective/Interval History
-
Date of Service: November 27, 2023
no complains overnight
no nausea/vomiting
Objective Data
-
Labs:
Laboratory Results
11/27/23
07:48
WBC 13.3 H
Hgb 9.4 L
Hct 28.0 L
Plt Count 686 H
APTT 46.8 H
Sodium 132 L
Potassium 3.6
Chloride 103
Carbon Dioxide 26
BUN 2 L
Creatinine 0.6 L
Glucose 120 H
Calcium 7.7 L
Vital Signs:
Vital Signs
Temp Pulse Resp BP Pulse Ox
98.6 F 92 17 119/72 93
11/27/23 07:25 11/27/23 07:25 11/27/23 07:25 11/27/23 08:40 11/27/23 08:00
I&O
11/26/23 11/27/23 11/28/23
06:59 06:59 06:59
Intake Total 630 / 630 1420 / 1420
Output Total 1072 / 1072 1600 / 1600
Balance -442 / -442 -180 / -180
Review of Systems
-
Respiratory: Reports No Symptoms
Cardiac: Reports No Symptoms
Abdomen/GI: Reports No Symptoms
Physical Exam
-
General: No Apparent Distress
Cardiac: Regular Rhythm and S1/S2; Negative Murmur
GI: Soft, Normal Bowel Sounds, Tender and Other (Left upper quadrant CHAY drain x 2, dark brownish drainage, left periumbilical area dressing in place )
Musculoskeletal: No Edema
Neuro: Awake, Alert and AO x 3
Psych: Calm
--- NOTE | 2023-11-27 14:56 | PN.CDI ---
CDI
- -
CDI:
Physician Documentation Request
Admit Date: 11/21/23 15:28
Dear Doctor Calos,
Clinical Indicators:
11/26 PN, 'Cachexia 2/2 to protein malnutrition'
11/25 note/assessment: -'pt lost 5.3% weight x 1 month significant'
-'Pt with mild muscle loss of the clavicles and temples, mild fat loss of the ribs'
-'Per ASPEN/AND guidelines, pt meets for moderate malnutrition in the context of
chronic illness as evidenced by <75% intake est needs x 2 months, >5% weight loss x
1 month, >7.5% weight loss x < 3months, mild muscle loss.'
Based on the information, which of the following most accurately represents the patient's nutritional status?
Moderate Protein Calorie Malnutrition
Mild Protein Calorie Malnutrition
Other (please specify)
[place] Criteria (ACP Hospitalist 2017)
2 or more criteria must be present for either
non severe or severe malnutrition
Note that the criteria differs related to the
presence of an acute or chronic illness
Acute Illness Chronic Illness
Energy Intake Non Severe: <75% for >7 days Non Severe: <75% for >1 month
Severe: <50% for >5 days Severe: <75% for >1 month
Weight Loss Non Severe: 1-2% over 1 week Non Severe: 5% over 1 month
5% over 1 month 7.5% over 3 months
7.5% over 3 months 10% over 6 months
1 year N/A 20% over 1 year
Severe: >2% over 1 week Severe: >5% over 1 month
>5% over 1 month >7.5% over 3 months
>7.5% over 3 months >10% over 6 months
1 year N/A >20% over 1 year
Body Fat Non Severe: Mild Decrease Non Severe: Mild Loss
Severe: Moderate Decrease Severe: Severe Loss
Muscle Mass Non Severe: Mild Decrease Non Severe: Mild Loss
Severe: Moderate Decrease Severe: Severe Loss
Fluid Accumulation Non Severe: Mild Accumulation Non Severe: Mild Accumulation
Severe: Moderate to severe Severe: Moderate to severe
accumulation accumulation
Reduced Surveyor Instrument Assistant Strength Non Severe: N/A Non Severe: N/A
Severe: Measurably reduced Severe: Measurably reduced
Additional criteria that can be used to Determine if Mild or Moderate Malnutrition (Merck Manual 2018)
Mild Moderate Severe
Albumin gm/dl <3.0 gm/dl <2.5 gm/dl <2.0 gm/dl
Pre Albumin mg/dl <15 gm/dl <10 mg/dl <5.0 mg/dl
BMI <18.5 <17 <16
Use of terms such as suspected, likely, concern for, or probable (associated with a specific diagnosis that is being evaluated, monitored, or treated as if it exists) are acceptable and can be coded in the inpatient setting, when documented at the
time of discharge.
Thank you,
MARSHA Lawson RN
CDI Specialist
available via tiger text
Please use your independent medical judgment in providing your response.
[2023-11-27 15:25] VITALS: BP 110/69
--- NOTE | 2023-11-27 15:51 | CM ---
Addendum entered by Migdalia Schneider 11/27/23 16:25:
Patient for d/c today. Be updated.
Original Note:
Spoke with patient bedside.
Patient emotional about prognosis.
Plan remains home with [facility] for wound care.
Patient brought up hospice but stated he is not ready for that at this time and would like to continue with treatment.
Provided emotional support and patient is aware if he changes his mind about hospice after d/c, [facility] can assist him.
Patient will be going home for a few days then moving into his ex- home for assistance.
Spoke with ID, no plans for home IV anbx at this time.
Mikala from [facility] updated and referral updated via [facility].
Plan: home with [facility], family will transport.
[facility] [phone]
,
--- NOTE | 2023-11-27 16:07 | W.PN.ID1 ---
Date of Service
Date of Service: November 27, 2023
Today's Communication
- without source control, further antibiotic use is futile. Patient is not a surgical candidate; source control is not achievable.
- unfortunately I have no effective solution to offer Mr Barros; I have recommended hospice with an estimated prognosis of weeks to at the most months to live
- could continue fluconazole as suppression for yeast would provide a 90 day supply.
Assessment / Plan
Recent total SMA graft occlusion, ischemic bowel, total splenic infarct
- s/p thrombectomy (performed through prior graft) & patch repair (09/13/23)
- s/p subtotal colectomy, colostomy (09/21/23)
- Sujatha peritonitis
- Pseudomonas (resistant to meropenem and quinolones) intra-abdominal abscesses s/p perc drains
- had progression despite trial of suppression
- per Vascular unable to remove graft
Current hospitalization:
# Nondraining abdominal catheter despite upsizing 11/19
# Persistent left upper abdominal fluid collection
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
# Leukocytosis - improved
Plan:
- rapid development of MDRO Pseudomonas with loss of quinolones, most beta lactams, and a besf-gxcivb-dlgc-lactamase inhibitor
- the antibiotics we have been using (zosyn) have been ineffective, likely the interim improvement is due to drainage of the collections
- without source control, further antibiotic use is futile. Patient is not a surgical candidate; source control is not achievable.
- unfortunately I have no effective solution to offer Mr Barros; I have recommended hospice with an estimated prognosis of weeks to at the most months to live
- could continue fluconazole as suppression for yeast would provide a 90 day supply.
Chief Complaint
-: Other (abscess)
Subjective / Review of Systems
afebrile
bp stable
wbc now 13
cr 0.6
discussed with case management and psychiatry
discussed at length with patient and ex who is supportive
Vital Signs / Physical Exam
Vital Signs
Vital Signs
Temp Pulse Resp BP Pulse Ox
98.8 F 92 18 110/69 95
11/27/23 15:25 11/27/23 15:25 11/27/23 15:25 11/27/23 15:25 11/27/23 15:25
Physical Exam
Constitutional: No Acute Distress
Cardiovascular: Regular Rate and Rub
Pulmonary: Symmetric and Non Labored
Gastrointestinal: Non Distended
Skin: Dry; Negative Rash or Jaundice
Objective Data
Lab Data
Lab Results
11/27/23 07:48
11/27/23 07:48
PT 18.9 Sec (11.4-14.6) H 11/21/23 23:05
INR 1.60 11/21/23 23:05
APTT 46.8 Sec (23.4-35.0) H 11/27/23 07:48
Estimated Creat Clear 118 ml/min 11/27/23 07:48
Lactic Acid 1.6 mmol/L (0.7-2.0) 11/24/23 03:45
Total Bilirubin 0.3 mg/dl (0.2-1.3) 11/24/23 03:45
AST 18 U/L (17-59) 11/24/23 03:45
ALT 12 U/L (0-50) 11/24/23 03:45
Alkaline Phosphatase 105 U/L (38-126) 11/24/23 03:45
Most recent labs reviewed.
Micro Results:
11/23/23 13:15 Wound Culture - Final
Abscess Pseudomonas aeruginosa
Gram Stain - Final
11/21/23 13:39 Blood Culture - Final
Blood/Venous No Growth - Final Report
11/21/23 13:40 Blood Culture - Final
Blood/Venous No Growth - Final Report
11/21/23 CT a/p: Left-sided percutaneous drainage catheter extending across the midline to the right with overall decreased fluid density collection, including a component in the left midabdomen. Cannot exclude fistulous communication between the
portion of the abnormal fluid collection in the right abdomen/drainage catheter with the gallbladder. Prior colectomy with Ochoa pouch again identified. Diverting right lower quadrant ileostomy. High attenuation density within the rectum of
uncertain etiology. Cannot exclude fistulous communication between small bowel in the left abdomen and the distal colon.
Care Review
Plan reviewed with: Physician (Dr Stewart, Dr Live, Dr Andrews - [place])
--- NOTE | 2023-11-27 18:47 | W.DCSUMMARY ---
Discharge Summary
Discharge Data
Date of Admission: 11/21/23
Date of Discharge: 11/27/23
-
Pending Results: No
Hospital Course
Discharging Physician : Dr Juan Live
Disposition : To home
Primary care physician : Dr Mendoza Ramesh
Principal Discharge diagnosis :
Intra-abdominal abscess from multidrug-resistant Pseudomonas
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
Hyponatremia
Chronic Discharge diagnosis :
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
History of mesenteric ischemia secondary to mesenteric bypass thrombosis in September 20
History of subtotal colectomy due to significant mesenteric ischemia in September 20
History of gastrointestinal bleed
Chronic obstructive pulmonary disease
Coronary disease
History of occlusive thrombus of left arm on Eliquis
History of provoked deep venous thrombosis post left knee surgery
Chronic back pain
History of tobacco use
Moderate protein-calorie malnutrition
Hospital Course :
Patient is a 58-year-old male with complex vascular/surgical history came to ER with abdominal drain not having enough drainage. Patient was having abdominal pain and chills as well. Patient underwent an aortomesenteric bypass in June 19. In
August 2023 patient developed new bypass graft thrombus requiring thrombectomy and patch angioplasty. Postprocedure patient developed significant mesenteric ischemia requiring subtotal colectomy. Patient had poor prognosis that admission and was
found to having partially drug-resistant Pseudomonas growing from peritoneal/intraoperative cultures. Patient had infected fluid collection/seroma developing in abdominal cavity for which CHAY drain has been placed. Patient was seen over
interventional radiology department for exchange of CHAY drain on 11/17 and 11/19 despite manipulation patient did not have any good drainage. With associated abdominal pain and chills patient came to ER as mentioned above. In ER workup showing
patient having worsening leukocytosis and concern of reoccurring sepsis. A CT abdomen pelvis was done which showed left upper quadrant abdominal fluid collection also question of right upper quadrant drain going in gallbladder. Colorectal surgery
and general surgery were involved in care. General surgery recommended HIDA scan which did not show any bile leakage. CHAY drain fluid was collected and bilirubin levels were checked and were undetectable level. Interventional radiology evaluated
again and was able to upsize left upper quadrant drain with some drainage of brownish fluid. This was sampled which later grew MDR Pseudomonas. Unfortunately isolate was not sensitive to cefepime/Merrem/Zosyn. ID suspecting patient have probably
an infected angioplasty graft which is not surgically possible to be removed and also patient have MDR Pseudomonas which is not amenable to antibiotic therapy. Home hospice was discussed and patient understands prognosis although wants to have
second opinion. Patient was discharged home with contact number provided for hospice agency.
Important imaging findings :
CT a/p
Left-sided percutaneous drainage catheter extending across the midline to the right with overall decreased fluid density collection, including a component in the left midabdomen. Cannot exclude fistulous communication between the portion of the
abnormal fluid collection in the right abdomen/drainage catheter with the gallbladder.
Prior colectomy with Ochoa pouch again identified. Diverting right lower quadrant ileostomy. High attenuation density within the rectum of uncertain etiology. Cannot exclude fistulous communication between small bowel in the left abdomen and the
distal colon.
Procedure findings :
None
Discharge Plan
-
Patient Disposition: Home (Routine Discharge)
Discharge Diagnosis/Procedures: Abdominal abscess from Drug resistant pseudomonas
Condition: Fair
Diet: Regular
Activity: As tolerated
Driving Restrictions: No driving
Referrals:
Mendoza Uribe, DO [Family Provider] - in one week
Prescriptions:
New
oxycodone 10 mg tablet
10 mg PO Q8H PRN (Reason: Pain) Qty: 14 0RF
Continued
aspirin 81 mg Tablet,Delayed Release (Dr/Ec)
81 mg PO DAILY
fluconazole 200 mg Tablet
200 mg PO HS Qty: 30 0RF
loperamide 2 mg Capsule
2 mg PO BID Qty: 60 0RF
pantoprazole 40 mg Tablet,Delayed Release (Dr/Ec)
40 mg PO DAILY Qty: 30 0RF
Metamucil Fiber Singles 3.4 gram Powder In Packet
1 packet PO HS Qty: 30 0RF
Eliquis 5 mg Tablet
5 mg PO BID Qty: 60 0RF
zolpidem 5 mg tablet
5 mg PO HS
sodium chloride 1,000 mg tablet,soluble
1,000 mg PO BID
Discontinued
diltiazem HCl [Cartia XT] 120 mg Capsule,Extended Release 24hr
120 mg PO DAILY Qty: 30 0RF
oxycodone 5 mg Tablet
5 mg PO Q4HPRN PRN (Reason: Moderate pain) Qty: 30 0RF
levofloxacin [Levaquin] 750 mg Tablet
750 mg PO DAILY
Discharge Orders:
Discharge Patient (As Directed); Ordered 11/27/23
Ordered By: Juan Live
Discharge Date and Time
Discharge Date/Time: 11/27/23 17:45
Print Language: CHINESE
--- NOTE | 2023-11-28 08:17 | PN.CDI ---
CDI
- -
CDI:
Physician Documentation Request
Admit Date: 11/21/23 15:28
Dear Doctor Calos,
Clinical Indicators:
Patient admitted with intra-abdominal abscess, multidrug resistant.
11/23 Levophed initiated for septic shock.
WBC/Lactic Acid on admission:
11/21/23 11/22/23
13:39 19:40
WBC 17.4 H
Lactic Acid 3.1 H
HR trend on admission:
11/21/23
12:33 11/21/23
13:15 11/21/23
14:00
Pulse 112 100 96
11/21/23
14:30 11/21/23
15:30 11/21/23
16:00
Pulse 91 91 90
Please clarify the following:
Sepsis was present on admission
Sepsis was not present on admission
Other, please specify
Sepsis- Systemic manifestations of infection, with 2 or more SIRS criteria which include:
- Fever >100.4 degrees F or hypothermia < 96.8 degrees F
- Leukocytosis - WBC > 12,000 or leukopenia - WBC < 4,000 or > 10% bands
- Tachycardia > 90 beats per minute
- Tachypnea - RR > 20 breaths per minute or PaCO2 , 32mmHg
Source: Merck Manual 2013
Use of terms such as suspected, likely, concern for, or probable (associated with a specific diagnosis that is being evaluated, monitored, or treated as if it exists) are acceptable and can be coded in the inpatient setting, when documented at the
time of discharge.
Thank you,
MARSHA Lawson RN
CDI Specialist
available via tiger text
Please use your independent medical judgment in providing your response.
== END 2023-11-27 17:45 | disposition home health service (06) | DRG 871 ==
LOC: 2 SOUTH 15:28
PROVIDERS: Clinical Nurse Specialist Family Health; Nurse Practitioner Gerontology; Physician Assistant; Radiology Diagnostic Radiology; Registered Nurse; ADMITTING PHYSICIAN Internal Medicine; ATTENDING PHYSICIAN Hospitalist; CONSULT PHYSICIAN Internal Medicine Infectious Disease; CONSULT PHYSICIAN Surgery Vascular Surgery; EMERGENCY PHYSICIAN Emergency Medicine; FAMILY PHYSICIAN Family Medicine; OTHER PHYSICIAN Psychiatry & Neurology Psychiatry; OTHER PHYSICIAN Surgery
PROC: 0W9F30Z Drainage of Abdominal Wall with Drainage Device, Percutaneous Approach (ICD-10-PCS; 2023-11-23)
DX: A41.52 Sepsis due to Pseudomonas (principal); K65.1 Peritoneal abscess; R65.21 Severe sepsis with septic shock; R64 Cachexia; Z68.1 Body mass index [BMI] 19.9 or less, adult; E46 Unspecified protein-calorie malnutrition; Z16.13 Resistance to carbapenem; Z16.24 Resistance to multiple antibiotics; E22.2 Syndrome of inappropriate secretion of antidiuretic hormone; K63.2 Fistula of intestine; B96.5 Pseudomonas (aeruginosa) (mallei) (pseudomallei) as the cause of diseases classified elsewhere; F17.200 Nicotine dependence, unspecified, uncomplicated; I10 Essential (primary) hypertension; I95.9 Hypotension, unspecified; J44.9 Chronic obstructive pulmonary disease, unspecified; Z79.82 Long term (current) use of aspirin; Z79.01 Long term (current) use of anticoagulants
CPT/HCPCS: 49406; 74177; 78226; 80048; 80053; 82962; 83605; 85025; 85027; 85610; 85730; 86803; 86850; 86900; 86901; 87040; 87070; 87077; 87186; 87205; 96365; 97162; 97166; 97530; 99152; 99153; 99285; A9537; Q9967